=== PATIENT | female | born 1990 ===

== ENCOUNTER 2017-11-12 19:39 | Inpatient (IN) | payer MEDICAID ==
[2017-11-12 19:40] VITALS: BMI 29.2
[2017-11-12] MEDS ORDERED: Sodium Chloride 0.9% 1,000 ML IV STA (20:21)
--- NOTE | 2017-11-12 20:37 | ED PDOC ---
HPI: Abdomen Time Seen by Provider: 11/12/17 19:40 Chief Complaint (Nursing): Abdominal Pain Chief Complaint (Provider): Abdominal Pain History Per: EMS, Family History/Exam Limitations: clinical condition Onset/Duration Of Symptoms: Days (x3) Additional Complaint(s): Patient is a 27 y/o female with history of gastroporesis, chronic kidney disease, anemia, nephrotic syndrome and hypertension who was brought to the ED by EMS for evaluation of potential seizures. Per EMS patient's blood sugar at home was 64. Per mother patient gets seizures when her sugar is low but by seizures she means diaphoretic and shaky, not no LOC or eyes rolling back. she has history of negative neuro workup for seizures. per mother she has been vomiting for the past x4 days and has chronic gastroporesis. actually mom states this has been gng on for 5 yrs. She was recently admitted to this hospital and was discharged wit Zofran ODT. Patient follows with her car checker and her primary dr Dr. Lyles. According to her mother, current behavior is patient's baseline. She has had GI work ups and they have all been negative. Patient take Zofran daily but provides no relief. he is requesting pain medication and nausea medication. Upon provider evaluation patient's sugar was 88 after being given apple juice by mother. She denies any fever or diarrhea. PMD: Rafal Past Medical History Reviewed: Historical Data, Nursing Documentation, Vital Signs - Medical History PMH: Anemia, Diabetes (Type I), HTN, Chronic Kidney Disease Denies: HIV Other PMH: Gastroporesis, nephrotic syndrome - Surgical History Surgical History: No Surg Hx - Family History Family History: States: Unknown Family Hx - Social History Current smoker - smoking cessation education provided: No Alcohol: None Drugs: Denies - Home Medications Home Medications: Ambulatory Orders Medication Instructions Recorded Insulin Lispro [humALOG] 5 unit SC ACTID 11/04/17 Liraglutide [Victoza 2-Ángel] 0.6 mg SC DAILY 11/04/17 Metoclopramide [Reglan] 10 mg PO Q8 PRN 11/04/17 amLODIPine [Norvasc] 5 mg PO DAILY 11/04/17 Ondansetron ODT [Zofran ODT] 4 mg PO Q8H PRN #20 odt 11/09/17 Ergocalciferol (Vitamin D2) 50,000 unit PO QWK 11/13/17 [Vitamin D2] Ferrous Sulfate [Feosol] 325 mg PO BID 11/13/17 Folic Acid 1 mg PO DAILY 11/13/17 Insulin Glargine, Recombina 20 unit SC HS 11/13/17 [Lantus] - Allergies Allergies/Adverse Reactions: Allergies Allergy/AdvReac Type Severity Reaction Status Date / Time No Known Allergies Allergy Verified 11/04/17 10:12 Review of Systems ROS Statement: Except As Marked, All Systems Reviewed And Found Negative Constitutional: Negative for: Fever Gastrointestinal: Positive for: Vomiting, Abdominal Pain. Negative for: Diarrhea Neurological: Positive for: Seizures (possible) Physical Exam - Reviewed Nursing Documentation Reviewed: Yes Vital Signs Reviewed: Yes - Physical Exam Appears: Positive for: Well Head Exam: Positive for: ATRAUMATIC Skin: Positive for: Normal Color, Warm, Dry Eye Exam: Positive for: Normal appearance ENT: Positive for: Normal ENT Inspection Neck: Positive for: Normal Cardiovascular/Chest: Positive for: Regular Rate, Rhythm Respiratory: Positive for: Normal Breath Sounds Gastrointestinal/Abdominal: Positive for: Normal Exam Extremity: Positive for: Normal ROM Neurologic/Psych: Positive for: Alert, Oriented - Laboratory Results Result Diagrams: 11/12/17 20:55 11/12/17 20:55 Medical Decision Making Medical Decision Making: Time: 20:21 Impression: vomiting, rule out small bowel obstruction, electrolyate abnormality or other infections Initial Plan: Beta HCG CMP CBC w/ diff IV fluids 999 mls/hr Pepcid Zofran Urine C&S UA Time: 20:52 Patient gave verbal consent for R EJ for IV access (RNS unable to obtain) Time: 21:40 Patient's EJ fell out. She was vomiting and wretching causing it to fall out. Time: 22:02 Patient given Morphine as although pt appears comfortable and resting in bed, when i go in and see how she is she demands narcotis Time: 0138 CT Abd/Pelvis IMPRESSION: No CT evidence of acute pathology. Small sliding hiatal hernia. Complete resolution of previously noted pleural effusions. 0202 Patient has been sleeping and requesting pain medications now. refusing to give urine sample. 0224 Patient failed tolerating PO and vomited. Spoke to Dr. Santos, medical service, who agreed to patient admission. 0243 Patient is asking for medication and refused to give urine. 0355 Patient has elevated blood sugar, ordered insulin. lactat normal. nurses tried again to get iv access but no success. i myself tried multiple times. pt will need to get PICC line in AM. Scribe Attestation: Documented by Arian Babb, acting as a scribe for Courtney Stubbs MD Provider Scribe Attestation: All medical record entries made by the Scribe were at my direction and personally dictated by me. I have reviewed the chart and agree that the record accurately reflects my personal performance of the history, physical exam, medical decision making, and the department course for this patient. I have also personally directed, reviewed, and agree with the discharge instructions and disposition. Disposition - Clinical Impression Clinical Impression: CKD (chronic kidney disease), stage IV, Intractable vomiting, Gastroparesis - Patient ED Disposition Is Patient to be Admitted: Yes Discussed With : Enrique Sanots Counseled Patient/Family Regarding: Studies Performed, Diagnosis - Disposition Disposition Time: 02:24 Condition: STABLE
[2017-11-12 21:05] LABS: BASO # 0.1 K/uL (0.0-0.2); BASO % 0.7 % (0.0-2.0); EOS % 0.1 % (0.0-4.0); HEMOGLOBIN 11.3 g/dL (12.0-16.0); LYMPH % 6.1 % (20.0-40.0); MEAN CELL VOLUME 86.6 fl (81.0-99.0); MEAN CORPUSCULAR HEMOGLOBIN 28.4 pg (27.0-31.0); MEAN CORPUSCULAR HGB CONC 32.8 g/dL (33.0-37.0); MEAN PLATELET VOLUME 10.1 fl (7.2-11.7); MONO # 1.1 K/uL (0.0-0.8); MONO % 6.5 % (0.0-10.0); NEUT # 14.4 K/uL (1.8-7.0); NEUT % 86.6 % (50.0-75.0); PLATELET COUNT 438 K/uL (130-400); RBC 3.99 Mil/uL (3.80-5.20); RED CELL DISTRIBUTION WIDTH 13.2 % (11.5-14.5); WHITE BLOOD COUNT 16.6 K/uL (4.8-10.8)
[2017-11-12 21:19] LABS: ALB/GLOB RATIO 0.9 (1.0-2.1); ALBUMIN 3.4 g/dL (3.5-5.0); ALT/SGPT 20 U/L (9-52); AST/SGOT 26 U/L (14-36); BLOOD UREA NITROGEN 31 mg/dl (7-17); CALCIUM 9.1 mg/dL (8.4-10.2); GFR NON-AFRICAN AMERICAN 10
[2017-11-12] MEDS ORDERED: Morphine 4 MG/ML VIAL ONE (22:06)
[2017-11-12 22:50] LABS: ANISOCYTOSIS SLIGHT; BANDS 4 % (0-2); HYPOCHROMIC SLIGHT; LYMPHOCYTE 10 % (20-50); MONOCYTE 6 % (0-10); NEUTROPHIL 80 % (42-75); PLATELET ESTIMATE NORMAL (NORMAL); TOTAL CELLS COUNTED 100
[2017-11-13] MEDS ORDERED: Insulin Regular 100 units/ml SC STA (03:29)
[2017-11-13 03:51] LABS: ABG ALLEN TEST YES; ARTERIAL BLOOD GAS HCO3 23.3 mmol/L (21-28); ARTERIAL BLOOD GAS O2 SAT 96.4 % (95-98); ARTERIAL BLOOD GAS PCO2 31 mm/Hg (35-45); ARTERIAL BLOOD GAS PH 7.44 (7.35-7.45); ARTERIAL BLOOD GAS PO2 81 mm/Hg (80-100); ARTERIAL BLOOD GAS TCO2 22.1 mmol/L (22-28)
[2017-11-13] MEDS ORDERED: Insulin Regular 100 units/ml ONE (03:54)
[2017-11-13 05:56] LABS: SQUAMOUS EPITHIAL < 1 /hpf (0-5); URINE AMORPHOUS SEDIMENT OCC /ul (<OCC); URINE BACTERIA RARE (<OCC); URINE BILIRUBIN NEGATIVE (NEGATIVE); URINE BLOOD NEGATIVE (NEGATIVE); URINE CLARITY SLIGHTY-CLOUDY (Clear); URINE COLOR YELLOW (YELLOW); URINE GLUCOSE (UA) >=500 mg/dL (Normal); URINE HYALINE CAST 0-2 /hpf (0-2); URINE LEUKOCYTE ESTERASE NEG Leu/uL (Negative); URINE PROTEIN >=500 mg/dL (NEGATIVE); URINE UROBILINOGEN 0.2-1.0 mg/dL (0.2-1.0)
[2017-11-13] MEDS ORDERED: Influenza Vaccine 60 MCG/0.5 ML SYR (3 yr & up) IM ONE (10:00)
[2017-11-13] MEDS ORDERED: Pneumococcal 23-Valent Vaccine IM ONE (10:00)
--- NOTE | 2017-11-13 10:04 | CP.PCM.CON ---
<Nakul Sparks - Last Filed: 11/13/17 09:56> History of Present Illness - History of Present Illness History of Present Illness: PGY-4 GI Fellow Consult Note THE FOLLOWING INFORMATION OBTAINED FROM CHART REVIEW AND HOSPITAL STAFF PATIENT POSSIBLY POST-ICTAL DURING MY ENCOUNTER Pt is a 27 yo Hisp Female with DM1 c/b gastroparesis and CKD (on insulin pump with h/o fluctuating blood sugars, seizure disorder (due to hypoglycemia) and psuedoseziures presenting on 11/12 with nausea and vomiting and possible seizure disorder. Emesis consisted of brownish/yellow; no black or red emesis noted. Shortly prior to my arrival in the room, nursing states patient was conversing with staff but that there were issues with pain medication and patient became irritated with later seizure activity. Unable to obtain ROS due to clinical condition MHx: See above SurgHx: Insulin pump Meds: Reviewed in MAR FamHx: DM, HTN SocHx: Neg x 3 All: NKDA Past Patient History - Past Medical History & Family History Past Medical History?: Yes - Past Social History Alcohol: None Drugs: Denies - CARDIAC Hx Hypertension: Yes - PULMONARY Hx Respiratory Disorders: No - NEUROLOGICAL Hx Neurological Disorder: No - HEENT Hx HEENT Problems: No - RENAL Hx Chronic Kidney Disease: Yes - ENDOCRINE/METABOLIC Hx Endocrine Disorders: Yes - HEMATOLOGICAL/ONCOLOGICAL Hx Anemia: Yes Hx Human Immunodeficiency Virus (HIV): No - INTEGUMENTARY Hx Dermatological Problems: No - MUSCULOSKELETAL/RHEUMATOLOGICAL Hx Musculoskeletal Disorders: No Hx Falls: No - GASTROINTESTINAL Hx Gastrointestinal Disorders: Yes Other/Comment: Gastroparesis - GENITOURINARY/GYNECOLOGICAL Hx Genitourinary Disorders: No - PSYCHIATRIC Hx Psychophysiologic Disorder: No Hx Substance Use: No - SURGICAL HISTORY Hx Surgeries: No - ANESTHESIA Hx Anesthesia: No Hx Anesthesia Reactions: No Meds Allergies/Adverse Reactions: Allergies Allergy/AdvReac Type Severity Reaction Status Date / Time No Known Allergies Allergy Verified 11/04/17 10:12 - Medications Medications: Current Medications Ondansetron HCl (Zofran Odt) 4 mg PO Q8H PRN PRN Reason: Nausea/Vomiting Last Admin: 11/13/17 09:12 Dose: 4 mg Pneumococcal Polyvalent Vaccine (Pneumovax 23 Vaccine) 0.5 ml IM .ONCE ONE Stop: 11/13/17 10:01 Physical Exam - Constitutional Appears: Confused Additional comments: staring off - Head Exam Head Exam: ATRAUMATIC, NORMAL INSPECTION - Eye Exam Eye Exam: Normal appearance. absent: Conjunctival injection, Scleral icterus - ENT Exam ENT Exam: Mucous Membranes Moist. absent: Mucous Membranes Dry, Normal External Ear Exam - Respiratory Exam Respiratory Exam: Clear to Auscultation Bilateral, NORMAL BREATHING PATTERN. absent: Accessory Muscle Use - Cardiovascular Exam Cardiovascular Exam: Tachycardia. absent: REGULAR RHYTHM, RRR - GI/Abdominal Exam GI & Abdominal Exam: Normal Bowel Sounds, Soft. absent: Bruit, Diminished Bowel Sounds, Distended, Firm, Guarding, Tenderness - Rectal Exam Rectal Exam: Deferred - Neurological Exam Additional comments: eyes open, not tracking, not talking, some movement/withdrawal with painful stimuliiiii - Psychiatric Exam Psychiatric exam: Flat Affect - Skin Skin Exam: Diaphoretic, Normal Color, Warm Results - Vital Signs Recent Vital Signs: Last Vital Signs Temp 100.9 F H 11/13/17 08:59 Pulse 123 H 11/13/17 08:59 Resp 20 11/13/17 08:59 BP 179/99 H 11/13/17 08:59 Pulse Ox 100 11/13/17 08:59 - Labs Result Diagrams: 11/12/17 20:55 11/12/17 20:55 Labs: Laboratory Results - last 24 hr 11/12/17 11/12/17 11/13/17 20:55 20:55 02:36 WBC 16.6 H D RBC 3.99 Hgb 11.3 L Hct 34.5 MCV 86.6 MCH 28.4 MCHC 32.8 L RDW 13.2 Plt Count 438 H D MPV 10.1 Neut % (Auto) 86.6 H Lymph % (Auto) 6.1 L Hale % (Auto) 6.5 Eos % (Auto) 0.1 Baso % (Auto) 0.7 Neut # (Auto) 14.4 H Lymph # (Auto) 1.0 Hale # (Auto) 1.1 H Eos # (Auto) 0.0 Baso # (Auto) 0.1 Neutrophils % (Manual) 80 H Band Neutrophils % 4 H Lymphocytes % (Manual) 10 L Monocytes % (Manual) 6 Platelet Estimate Normal Hypochromasia (manual) Slight Anisocytosis (manual) Slight pCO2 pO2 HCO3 ABG pH ABG Total CO2 ABG O2 Saturation ABG Base Excess José Miguel Test ABG Potassium A-a O2 Difference Glucose Lactate FiO2 Crit Value Called To Crit Value Called By Crit Value Read Back Blood Gas Notified Time Sodium 138 Potassium 3.8 Chloride 105 Carbon Dioxide 22 Anion Gap 15 BUN 31 H Creatinine 5.3 H Est GFR ( Amer) 12 Est GFR (Non-Af Amer) 10 POC Glucose (mg/dL) 401 H* Random Glucose 151 H Calcium 9.1 Total Bilirubin 0.4 AST 26 ALT 20 Alkaline Phosphatase 168 H D Total Protein 7.1 Albumin 3.4 L Globulin 3.7 Albumin/Globulin Ratio 0.9 L Beta HCG, Quant < 2.39 Arterial Blood Potassium Urine Color Urine Clarity Urine pH Ur Specific [place] Urine Protein Urine Glucose (UA) Urine Ketones Urine Blood Urine Nitrate Urine Bilirubin Urine Urobilinogen Ur Leukocyte Esterase Urine RBC (Auto) Urine Microscopic WBC Ur Squamous Epith Cells Amorphous Sediment Urine Bacteria Hyaline Casts 11/13/17 11/13/17 11/13/17 02:44 03:45 05:20 WBC RBC Hgb Hct MCV MCH MCHC RDW Plt Count MPV Neut % (Auto) Lymph % (Auto) Hale % (Auto) Eos % (Auto) Baso % (Auto) Neut # (Auto) Lymph # (Auto) Hale # (Auto) Eos # (Auto) Baso # (Auto) Neutrophils % (Manual) Band Neutrophils % Lymphocytes % (Manual) Monocytes % (Manual) Platelet Estimate Hypochromasia (manual) Anisocytosis (manual) pCO2 31 L pO2 81 HCO3 23.3 ABG pH 7.44 ABG Total CO2 22.1 ABG O2 Saturation 96.4 ABG Base Excess -2.1 L José Miguel Test Yes ABG Potassium 4.7 A-a O2 Difference 30.0 Glucose 522 H* D Lactate 0.9 FiO2 21.0 Crit Value Called To Evelyne zepeda md Crit Value Called By 302 Crit Value Read Back Y Blood Gas Notified Time 353 Sodium 134.0 Potassium Chloride 100.0 Carbon Dioxide Anion Gap BUN Creatinine Est GFR ( Amer) Est GFR (Non-Af Amer) POC Glucose (mg/dL) 456 H* Random Glucose Calcium Total Bilirubin AST ALT Alkaline Phosphatase Total Protein Albumin Globulin Albumin/Globulin Ratio Beta HCG, Quant Arterial Blood Potassium 4.7 Urine Color Yellow Urine Clarity Slighty-cloudy Urine pH 6.0 Ur Specific [place] 1.023 Urine Protein >=500 Urine Glucose (UA) >=500 Urine Ketones Trace Urine Blood Negative Urine Nitrate Negative Urine Bilirubin Negative Urine Urobilinogen 0.2-1.0 Ur Leukocyte Esterase Neg Urine RBC (Auto) 6 H Urine Microscopic WBC 3 Ur Squamous Epith Cells < 1 Amorphous Sediment Occ H Urine Bacteria Rare Hyaline Casts 0-2 11/13/17 05:30 WBC RBC Hgb Hct MCV MCH MCHC RDW Plt Count MPV Neut % (Auto) Lymph % (Auto) Hale % (Auto) Eos % (Auto) Baso % (Auto) Neut # (Auto) Lymph # (Auto) Hale # (Auto) Eos # (Auto) Baso # (Auto) Neutrophils % (Manual) Band Neutrophils % Lymphocytes % (Manual) Monocytes % (Manual) Platelet Estimate Hypochromasia (manual) Anisocytosis (manual) pCO2 pO2 HCO3 ABG pH ABG Total CO2 ABG O2 Saturation ABG Base Excess José Miguel Test ABG Potassium A-a O2 Difference Glucose Lactate FiO2 Crit Value Called To Crit Value Called By Crit Value Read Back Blood Gas Notified Time Sodium Potassium Chloride Carbon Dioxide Anion Gap BUN Creatinine Est GFR ( Amer) Est GFR (Non-Af Amer) POC Glucose (mg/dL) 428 H* Random Glucose Calcium Total Bilirubin AST ALT Alkaline Phosphatase Total Protein Albumin Globulin Albumin/Globulin Ratio Beta HCG, Quant Arterial Blood Potassium Urine Color Urine Clarity Urine pH Ur Specific [place] Urine Protein Urine Glucose (UA) Urine Ketones Urine Blood Urine Nitrate Urine Bilirubin Urine Urobilinogen Ur Leukocyte Esterase Urine RBC (Auto) Urine Microscopic WBC Ur Squamous Epith Cells Amorphous Sediment Urine Bacteria Hyaline Casts Assessment & Plan - Assessment and Plan (Free Text) Assessment: 27 yo Hisp Female with DM1 c/b gastroparesis and CKD presenting with N/V and possible seizure. # Nausea and Vomiting: Due to gastroparesis flare. Non-bloody, non-bilious emesis. BS up to 456 but also with fluctuating values with reported lows and possible seizure activity. Needs good blood sugar control and supportive care. Plan: - Strict glycemic control per primary/Endo - Supportive care with ondansetron - Can trial metoclopramide, but caution if seizures - Monitor labs Thank you for the consult. Please page if questions. Pt discussed with Dr. Rodriguez. Please see attestion for further recs/changes. <Kit Rodriguez Last Filed: 11/18/17 13:43> Meds - Medications Medications: Current Medications Acetaminophen (Tylenol 325mg Tab) 650 mg PO Q4 PRN PRN Reason: Fever >100.4 F Last Admin: 11/13/17 13:50 Dose: 650 mg Acetaminophen (Tylenol 325mg Tab) 650 mg PO Q4 PRN PRN Reason: Pain, Mild (1-3) Last Admin: 11/17/17 11:04 Dose: 650 mg Amlodipine Besylate (Norvasc) 10 mg PO DAILY [facility] Last Admin: 11/18/17 11:50 Dose: Not Given Clonidine HCl (Catapres Tts1 0.1 Mg/24 Hr) 1 patch TD Q7D [facility] Last Admin: 11/14/17 18:42 Dose: 1 patch Diphenhydramine HCl (Benadryl) 50 mg IVP Q6 PRN PRN Reason: itching Last Admin: 11/18/17 08:16 Dose: 50 mg Ergocalciferol (Drisdol 50,000 Intl Units Cap) 1 cap PO QWK [facility] Ferrous Sulfate (Feosol) 325 mg PO BID [facility] Last Admin: 11/14/17 09:56 Dose: Not Given Folic Acid (Folic Acid) 1 mg PO DAILY [facility] Last Admin: 11/14/17 09:57 Dose: Not Given Hydralazine HCl (Apresoline) 10 mg IV Q6 PRN PRN Reason: SBP>180 or DBP>110 Last Admin: 11/17/17 04:40 Dose: 10 mg Piperacillin Sod/Tazobactam (Sod 2.25 gm/ Sodium Chloride) 100 mls @ 100 mls/hr IVPB Q8 [facility]; Protocol Last Admin: 11/18/17 09:51 Dose: 100 mls/hr Iron Sucrose 100 mg/ Sodium (Chloride) 105 mls @ 105 mls/hr IVPB DAILY [facility] Last Admin: 11/17/17 10:05 Dose: 105 mls/hr Daptomycin 410 mg/ Sodium (Chloride) 100 mls @ 100 mls/hr IV DAILY [facility] Stop: 11/23/17 09:01 Last Admin: 11/18/17 08:31 Dose: 100 mls/hr Potassium Chloride 40 meq/ (Sodium Chloride) 1,020 mls @ 100 mls/hr IV .[id number] [facility] Stop: 11/18/17 18:45 Last Admin: 11/18/17 04:58 Dose: Not Given Insulin Detemir (Levemir) 16 units SC HS [facility] Last Admin: 11/17/17 21:41 Dose: 16 units Insulin Detemir (Levemir) 5 units SC DAILY [facility] Insulin Human Lispro (Humalog) 0 units SC ACHS [facility] Last Admin: 11/18/17 12:30 Dose: Not Given Labetalol HCl (Trandate) 20 mg IVP Q4H PRN PRN Reason: Systolic Blood Pressure Last Admin: 11/17/17 17:05 Dose: 20 mg Metoclopramide HCl (Reglan) 5 mg IVP Q6H [facility] Last Admin: 11/18/17 09:52 Dose: 5 mg Ondansetron HCl (Zofran Odt) 4 mg PO Q8H PRN PRN Reason: Nausea/Vomiting Last Admin: 11/14/17 04:29 Dose: 4 mg Ondansetron HCl (Zofran Inj) 4 mg IVP Q6 PRN PRN Reason: Nausea/Vomiting Last Admin: 11/18/17 01:21 Dose: 4 mg Pantoprazole Sodium (Protonix Inj) 40 mg IVP DAILY [facility] Last Admin: 11/18/17 08:30 Dose: 40 mg Sertraline HCl (Zoloft) 25 mg PO DAILY@2200 [facility] Results - Vital Signs Recent Vital Signs: Last Vital Signs Temp 98.5 F 11/18/17 11:58 Pulse 100 H 11/18/17 11:58 Resp 18 11/18/17 11:58 BP 177/106 H 11/18/17 11:58 Pulse Ox 100 11/18/17 11:58 - Labs Result Diagrams: 11/18/17 10:47 11/18/17 10:47 Labs: Laboratory Results - last 24 hr 11/17/17 11/17/17 11/17/17 12:00 17:05 21:38 WBC RBC Hgb Hct MCV MCH MCHC RDW Plt Count MPV Neut % (Auto) Lymph % (Auto) Hale % (Auto) Eos % (Auto) Baso % (Auto) Neut # (Auto) Lymph # (Auto) Hale # (Auto) Eos # (Auto) Baso # (Auto) Sodium Potassium Chloride Carbon Dioxide Anion Gap BUN Creatinine Est GFR ( Amer) Est GFR (Non-Af Amer) POC Glucose (mg/dL) 145 H 390 H Random Glucose Calcium Phosphorus Magnesium Total Bilirubin AST ALT Alkaline Phosphatase Total Protein Albumin Globulin Albumin/Globulin Ratio 25-OH Vitamin D Total < 12.8 L 11/18/17 11/18/17 11/18/17 05:41 10:47 10:47 WBC 8.1 RBC 3.21 L Hgb 9.5 L Hct 27.6 L MCV 86.0 MCH 29.5 MCHC 34.3 RDW 13.4 Plt Count 332 MPV 9.4 Neut % (Auto) 68.4 Lymph % (Auto) 22.0 Hale % (Auto) 7.5 Eos % (Auto) 1.3 Baso % (Auto) 0.8 Neut # (Auto) 5.5 Lymph # (Auto) 1.8 Hale # (Auto) 0.6 Eos # (Auto) 0.1 Baso # (Auto) 0.1 Sodium 136 Potassium 3.2 L Chloride 110 H Carbon Dioxide 23 Anion Gap 6 L BUN 15 Creatinine 3.4 H Est GFR ( Amer) 19 Est GFR (Non-Af Amer) 16 POC Glucose (mg/dL) 132 H Random Glucose 48 L Calcium 8.0 L Phosphorus 2.6 Magnesium 1.8 Total Bilirubin 0.1 L AST 18 ALT 22 Alkaline Phosphatase 88 Total Protein 5.0 L Albumin 2.2 L Globulin 2.8 Albumin/Globulin Ratio 0.8 L 25-OH Vitamin D Total 11/18/17 11/18/17 11/18/17 11:13 11:15 12:08 WBC RBC Hgb Hct MCV MCH MCHC RDW Plt Count MPV Neut % (Auto) Lymph % (Auto) Hale % (Auto) Eos % (Auto) Baso % (Auto) Neut # (Auto) Lymph # (Auto) Hale # (Auto) Eos # (Auto) Baso # (Auto) Sodium Potassium Chloride Carbon Dioxide Anion Gap BUN Creatinine Est GFR ( Amer) Est GFR (Non-Af Amer) POC Glucose (mg/dL) 33 L* 34 L* 96 Random Glucose Calcium Phosphorus Magnesium Total Bilirubin AST ALT Alkaline Phosphatase Total Protein Albumin Globulin Albumin/Globulin Ratio 25-OH Vitamin D Total Assessment & Plan - Assessment and Plan (Free Text) Plan: Patient seen and examined Agree with above Kit Rodriguez MD, PhD
[2017-11-13] MEDS: Insulin Lispro (humaLOG) 100 Units/ml Inj SC SCH ×5 (10:43→21:15)
[2017-11-13] MEDS ORDERED: Ergocalciferol 50,000 Intl Units Cap PO SCH (10:45)
--- NOTE | 2017-11-13 10:48 | CT ---
Date of service: 11/13/2017 PROCEDURE: CT Abdomen and Pelvis without intravenous contrast HISTORY: vomiting COMPARISON: CT scan of the abdomen and pelvis dated 11/04/2017 TECHNIQUE: Contiguous images were obtained from the domes of the diaphragms to the upper thighs without the administration of intravenous contrast. Oral contrast was not administered. Radiation dose: Total exam DLP = 293.2 mGy-cm. This CT exam was performed using one or more of the following dose reduction techniques: Automated exposure control, adjustment of the mA and/or kV according to patient size, and/or use of iterative reconstruction technique. FINDINGS: LOWER THORAX: Unremarkable. LIVER: Unremarkable. No gross lesion or ductal dilatation. GALLBLADDER AND BILE DUCTS: Unremarkable. PANCREAS: Unremarkable. No gross lesion or ductal dilatation. SPLEEN: Unremarkable. ADRENALS: Unremarkable. No mass. KIDNEYS AND URETERS: Unremarkable. No hydronephrosis. No solid mass. VASCULATURE: Unremarkable. No aortic aneurysm. BOWEL: Small to moderate hiatal hernia. Mild rectosigmoid wall thickening. No obstruction. No gross mural thickening. APPENDIX: Unremarkable. Normal appendix. PERITONEUM: Unremarkable. No free fluid. No free air. LYMPH NODES: Unremarkable. No enlarged lymph nodes. BLADDER: Unremarkable. REPRODUCTIVE: Unremarkable. BONES: No acute fracture. OTHER FINDINGS: None. IMPRESSION: Mild rectosigmoid wall thickening may be related to underdistention versus infectious/inflammatory colitis. Clinical correlation is recommended. Additional findings as above.
[2017-11-13] MEDS ORDERED: Lidocaine 1% 5ml Abboject ONE (12:16)
--- NOTE | 2017-11-13 12:55 | PCM.SURG1 ---
Surgeon's Initial Post Op Note - Surgeon's Notes Surgeon: Dilan Colbert MD Statement Clerks Supervisor: NONE Type of Anesthesia: Local Pre-Operative Diagnosis: Poor venous access Operative Findings: Patent right basilic vein Post-Operative Diagnosis: Poor venous access Operation Performed: Midline single lumen picc placement, 23 cm. Tip in subclavian vein. Specimen/Specimens Removed: NONE Estimated Blood Loss: EBL {In ML}: 2 Blood Products Given: N/A Drains Used: No Drains Post-Op Condition: Fair Date of Surgery/Procedure: 11/13/17 Time of Surgery/Procedure: 12:50
--- NOTE | 2017-11-13 13:04 | VASCULAR ---
PROCEDURE: Date of procedure: 11/13/2017 Procedure: 1. Placement of a right arm midline PICC with ultrasound and fluoroscopic guidance, CPT 73358 2. PICC tip confirmation with spot radiograph and is in the superior vena cava Medications: 2cc 1 percent lidocaine Total Fluoro time: 1.5 Seconds Radiation:0.12 MGy EBL: 2 cc HISTORY: Gastroparesis, emesis, poor venous access. TECHNIQUE: Following informed consent and procedure time-out, the patient was placed supine on the interventional table and the right arm prepped and draped in the usual sterile fashion. Ultrasound showed a patent and compressible right basilic vein. After the skin was anesthetized with lidocaine, the basilic vein was accessed with micro micropuncture technique using ultrasound guidance. A guidewire was then advanced under fluoroscopic guidance into the subclavian vein. An image documenting ultrasound guidance for vascular access was permanently saved. The length of the single-lumen 4 [place]ic PICC was trimmed to 23 centimeters and advanced through a peel-away sheath. The PICC was position with tip of PICC confirm a spot radiograph the subclavian vein. The PICC was secured to the patient's skin. The PICC was flushed. A biopatch and sterile dressing was applied. IMPRESSION: Placement of a midline single-lumen 4 Green[place]ic PICC trimmed to 23 centimeters via right basilic vein. The tip of the PICC is confirmed with spot radiograph and is in the subclavian vein.
[2017-11-13] MEDS: Sodium Chloride 0.9% 1,000 ML IV SCH (15:41)
--- NOTE | 2017-11-13 23:17 | CP.PCM.HP ---
History of Present Illness - History of Present Illness History of Present Illness: CC: Vomiting and Shakiness History of Present Illness: A 27 y/o Female with history of Long Standing IDDM (since the age of 9years), G astroparesis, chronic kidney disease III (Baseline Creat 2-3) , Anemia, Nephrotic syndrome due to Diabetic Nephropathy, and Hypertension who was brought to the ED by EMS for evaluation of potential seizures. Per EMS patient's blood sugar at home was 64. Per mother patient gets seizures when her sugar is low but by seizures she means diaphoretic and shaky, not no LOC or eyes rolling back. she has history of negative neurology workup for seizures. Denies tongue bite or Incontinence. As per mother she also has been vomiting for the past x4 days and has Chronic Gastroparesis. actually mom states this has been going on for 5 yrs. She was recently admitted to this hospital and was discharged wit Zofran ODT. Patient follows with her Title Curative Specialist and her PCP Dr. Lyles. She has had GI work ups and they have all been negative. Patient take Zofran daily but provides no relief. She is requesting pain medication and nausea medication. Upon provider evaluation patient's sugar was 88 after being given apple juice by mother. She denies any fever or diarrhea. Multiple Hospitalization at [facility] similar Complaints. Present on Admission - Present on Admission Any Indicators Present on Admission: Yes History of Uncontrolled Diabetes: Yes Urinary Catheter: Yes (Patient asked for stating shecannot Void) Decubitus Ulcer Present: No Review of Systems - Review of Systems All systems: reviewed and no additional remarkable complaints except Review of Systems: as per HPI Past Patient History - Infectious Disease Hx of Infectious Diseases: None - Past Medical History & Family History Past Medical History?: Yes Past Family History: Reviewed and not pertinent - Past Social History Smoking Status: Smoker Currrent Status Unknown Alcohol: None Drugs: Denies - CARDIAC Hx Hypertension: Yes - PULMONARY Hx Respiratory Disorders: No - NEUROLOGICAL Hx Neurological Disorder: No - HEENT Hx HEENT Problems: No - RENAL Hx Chronic Kidney Disease: Yes - ENDOCRINE/METABOLIC Hx Endocrine Disorders: Yes - HEMATOLOGICAL/ONCOLOGICAL Hx Anemia: Yes Hx Human Immunodeficiency Virus (HIV): No - INTEGUMENTARY Hx Dermatological Problems: No - MUSCULOSKELETAL/RHEUMATOLOGICAL Hx Musculoskeletal Disorders: No Hx Falls: No - GASTROINTESTINAL Hx Gastrointestinal Disorders: Yes Other/Comment: Gastroparesis - GENITOURINARY/GYNECOLOGICAL Hx Genitourinary Disorders: No - PSYCHIATRIC Hx Psychophysiologic Disorder: No Hx Substance Use: No - SURGICAL HISTORY Hx Surgeries: No - ANESTHESIA Hx Anesthesia: No Hx Anesthesia Reactions: No Meds Allergies/Adverse Reactions: Allergies Allergy/AdvReac Type Severity Reaction Status Date / Time No Known Allergies Allergy Verified 11/04/17 10:12 Physical Exam - Constitutional Appears: Well, In Acute Distress - Head Exam Head Exam: ATRAUMATIC, NORMAL INSPECTION, NORMOCEPHALIC - Eye Exam Eye Exam: EOMI, Normal appearance, PERRL Pupil Exam: NORMAL ACCOMODATION, PERRL - ENT Exam ENT Exam: Mucous Membranes Dry, Normal Exam - Cardiovascular Exam Cardiovascular Exam: REGULAR RHYTHM, +S1, +S2 - GI/Abdominal Exam GI & Abdominal Exam: Normal Bowel Sounds, Soft. absent: Tenderness - Rectal Exam Rectal Exam: NORMAL INSPECTION - Exam Exam: Circumcision, NORMAL INSPECTION External exam: NORMAL EXTERNAL EXAM Speculum exam: NORMAL SPECULUM EXAM Bimanual exam: NORMAL BIMANUAL EXAM - Extremities Exam Extremities exam: Positive for: normal inspection - Back Exam Back exam: NORMAL INSPECTION - Neurological Exam Neurological exam: Alert, CN II-XII Intact, Normal Gait, Oriented x3, Reflexes Normal - Psychiatric Exam Psychiatric exam: Normal Affect, Normal Mood - Skin Skin Exam: Dry, Intact, Normal Color, Warm Results - Vital Signs Recent Vital Signs: Last Vital Signs Temp 99.0 F 11/13/17 19:19 Pulse 111 H 11/13/17 19:19 Resp 20 11/13/17 19:19 BP 119/73 11/13/17 19:19 Pulse Ox 99 11/13/17 19:19 - Labs Result Diagrams: 11/18/17 10:47 11/19/17 09:23 Labs: Laboratory Results - last 24 hr 11/13/17 11/13/17 11/13/17 02:36 02:44 03:45 pCO2 31 L pO2 81 HCO3 23.3 ABG pH 7.44 ABG Total CO2 22.1 ABG O2 Saturation 96.4 ABG Base Excess -2.1 L José Miguel Test Yes ABG Potassium 4.7 A-a O2 Difference 30.0 Sodium 134.0 Chloride 100.0 Glucose 522 H* D Lactate 0.9 FiO2 21.0 Crit Value Called To Evelyne zepeda md Crit Value Called By 302 Crit Value Read Back Y Blood Gas Notified Time 353 POC Glucose (mg/dL) 401 H* 456 H* Arterial Blood Potassium 4.7 Urine Color Urine Clarity Urine pH Ur Specific [place] Urine Protein Urine Glucose (UA) Urine Ketones Urine Blood Urine Nitrate Urine Bilirubin Urine Urobilinogen Ur Leukocyte Esterase Urine RBC (Auto) Urine Microscopic WBC Ur Squamous Epith Cells Amorphous Sediment Urine Bacteria Hyaline Casts 11/13/17 11/13/17 11/13/17 05:20 05:30 10:41 pCO2 pO2 HCO3 ABG pH ABG Total CO2 ABG O2 Saturation ABG Base Excess José Miguel Test ABG Potassium A-a O2 Difference Sodium Chloride Glucose Lactate FiO2 Crit Value Called To Crit Value Called By Crit Value Read Back Blood Gas Notified Time POC Glucose (mg/dL) 428 H* 495 H* Arterial Blood Potassium Urine Color Yellow Urine Clarity Slighty-cloudy Urine pH 6.0 Ur Specific [place] 1.023 Urine Protein >=500 Urine Glucose (UA) >=500 Urine Ketones Trace Urine Blood Negative Urine Nitrate Negative Urine Bilirubin Negative Urine Urobilinogen 0.2-1.0 Ur Leukocyte Esterase Neg Urine RBC (Auto) 6 H Urine Microscopic WBC 3 Ur Squamous Epith Cells < 1 Amorphous Sediment Occ H Urine Bacteria Rare Hyaline Casts 0-2 11/13/17 15:48 pCO2 pO2 HCO3 ABG pH ABG Total CO2 ABG O2 Saturation ABG Base Excess José Miguel Test ABG Potassium A-a O2 Difference Sodium Chloride Glucose Lactate FiO2 Crit Value Called To Crit Value Called By Crit Value Read Back Blood Gas Notified Time POC Glucose (mg/dL) 244 H Arterial Blood Potassium Urine Color Urine Clarity Urine pH Ur Specific [place] Urine Protein Urine Glucose (UA) Urine Ketones Urine Blood Urine Nitrate Urine Bilirubin Urine Urobilinogen Ur Leukocyte Esterase Urine RBC (Auto) Urine Microscopic WBC Ur Squamous Epith Cells Amorphous Sediment Urine Bacteria Hyaline Casts - Imaging and Cardiology CT scan - abdomen Additional comment: Pelvis: Date of service: 11/13/2017 PROCEDURE: CT Abdomen and Pelvis without intravenous contrast HISTORY: vomiting COMPARISON: CT scan of the abdomen and pelvis dated 11/04/2017 TECHNIQUE: Contiguous images were obtained from the domes of the diaphragms to the upper thighs without the administration of intravenous contrast. Oral contrast was not administered. Radiation dose: Total exam DLP = 293.2 mGy-cm. This CT exam was performed using one or more of the following dose reduction techniques: Automated exposure control, adjustment of the mA and/or kV according to patient size, and/or use of iterative reconstruction technique. FINDINGS: LOWER THORAX: Unremarkable. LIVER: Unremarkable. No gross lesion or ductal dilatation. GALLBLADDER AND BILE DUCTS: Unremarkable. PANCREAS: Unremarkable. No gross lesion or ductal dilatation. SPLEEN: Unremarkable. ADRENALS: Unremarkable. No mass. KIDNEYS AND URETERS: Unremarkable. No hydronephrosis. No solid mass. VASCULATURE: Unremarkable. No aortic aneurysm. BOWEL: Small to moderate hiatal hernia. Mild rectosigmoid wall thickening. No obstruction. No gross mural thickening. APPENDIX: Unremarkable. Normal appendix. PERITONEUM: Unremarkable. No free fluid. No free air. LYMPH NODES: Unremarkable. No enlarged lymph nodes. BLADDER: Unremarkable. REPRODUCTIVE: Unremarkable. BONES: No acute fracture. OTHER FINDINGS: None. IMPRESSION: Mild rectosigmoid wall thickening may be related to underdistention versus infectious/inflammatory colitis. Clinical correlation is recommended. Additional findings as above. Assessment & Plan (1) Acute on chronic renal failure Assessment and Plan: Nausea and Vomitin Abdominal Pain Johnson Catheter in place Monitor I/O Title Curative Specialist Consult Renal U/S Status: Acute Priority: High (2) Diabetes mellitus with hyperglycemia, with long-term current use of insulin Assessment and Plan: Continue Levamir Accu-check with SS coverage HgA1C Endocrinology Consult Status: Acute Priority: High (3) Seizure Assessment and Plan: Vs Hypoglycemai Induced Sympathetic Response Vs Psudoseizure Head W/O Contrast: Negative? Ativan PRN Neurology Consulted Status: Acute Priority: High (4) Colitis Assessment and Plan: Leukocytosis, Intractable Abdominal Pain, Nausea and Vomiting, Gastroparesis IVF IV Cipro and Flagyl Pain Control PRN Reglan RTC Zofran PRN ID & GI Consult Status: Acute Priority: High
--- NOTE | 2017-11-14 03:52 | CON ---
DATE: 11/13/2017 HISTORY OF PRESENT ILLNESS: A 27-year-old female with past medical history of hypertension, diabetes with diabetic nephropathy and nephrotic syndrome, gastroparesis, history of seizure/pseudoseizures, admitted after possible seizure episode. Nephrology being consulted for acute kidney injury. The patient was recently admitted to [facility] less than two weeks ago for acute flare of diabetic gastroparesis with intractable vomiting; at that time, the patient was reportedly self inducing her vomiting per hospital staff and would be seen secretly drinking juices even when kept n.p.o; had also been complaining of severe abdominal pain and was asking for pain meds despite being seemingly comfortable lying in bed; primary team at [facility] therefore resist to give her pain meds and the patient hence signed out AMA. However within the few days, the patient presented to [facility] with intractable vomiting and was admitted for several days, was given IV fluids and antiemetic therapy as well as pain medication and was discharged just a few days ago. The patient reports that after being discharged from [facility], by the next day, she was already having extremely high sugars despite being on insulin pump and using her long acting Lantus. She reports vomiting started day after discharge and has been continuing ever since; bilious vomitus, denies any blackish or coffee ground color; the patient otherwise reports some dizziness. Reports having had low blood sugar readings three times while at home. The patient otherwise also reporting abdominal pain, epigastric/lower chest soreness and back pain; denies any dysuria; reports decreased urination since being admitted. PAST MEDICAL HISTORY: As above. SOCIAL HISTORY: Nonsmoker. FAMILY HISTORY: . REVIEW OF SYSTEMS: CONSTITUTIONAL: Having some fevers today. HEENT: Denies any dysphagia or difficulty swallowing. RESPIRATORY: Reports some dyspnea. CARDIOVASCULAR: Denies any palpitations. GI: As per HPI. : As per HPI. MUSCULOSKELETAL: As per HPI. EXTREMITIES: No edema. PSYCHIATRIC: History of pseudoseizures. NEUROLOGIC: Reporting some headaches. PHYSICAL EXAMINATION: GENERAL: In no distress, conversing coherently in full sentences. Slightly lethargic. VITAL SIGNS: This morning, blood pressure 177/86, heart rate 106, respirations 18, temperature 99.3, O2 sat 100% on 2 liters via nasal cannula. HEENT: Moist mucous membranes. Nonicteric. No cervical lymphadenopathy. Has some facial swelling. RESPIRATORY: Lungs clear to auscultation bilaterally. No rales. No rhonchi. No wheezes. CARDIOVASCULAR: Heart sounds S1, S2 normal. No murmurs. No gallops. No rubs. GI: Abdomen. Soft, nondistended. Has moderate tenderness. : Johnson in place. EXTREMITIES: No lower leg edema. SKIN: Warm. No cyanosis. PSYCHIATRIC: Normal affect. Not agitated. NEUROLOGIC: No resting tremors. LABORATORY DATA: From last night CBC, WBC 16.6, hemoglobin 11.3, hematocrit 34.5, platelets 438. Chemistry panel: Sodium 138, potassium 3.8, chloride 105, bicarb 22, BUN 31, creatinine 5.3, glucose 151, calcium 9.1, AST 26, ALT 20, albumin 3.4. Abdominal pelvis CT, no hydronephrosis. ASSESSMENT AND PLAN: 1. Acute kidney injury, on chronic kidney injury, stage 4/5. The patient well known to our service, being followed as outpatient; has recurrent flares of gastroparesis induced recurrent vomiting although did go several months recently without having any flares; current acute kidney injury likely prerenal in the setting of gastrointestinal loses as has been the case multiple times; baseline serum creatinine is in the low 3s, corresponding to estimated glomerular filtration rate of approximately 15 mL per minute; the patient also with labs that are consistent with hemoconcentration with serum albumin of 3.4 being higher than her recent baseline. Goals of care at this point are to give intravenous fluids and avoid nephrotoxic agents; avoid any nonsteroidal anti-inflammatory drugs as they can shift down residual renal function. 2. Chronic kidney disease, stage 4/5 secondary to diabetic nephropathy with nephrotic syndrome. We have discussed impending estimated glomerular filtration rate status previously, and the patient is recently referred for kidney transplantation; in the near future, need to plan for initiation of dialysis as well. 3. Gastroparesis. The patient with another flare with intractable vomiting although has been able to hold down the p.o. intake today. The patient is without any intravenous access; recommend to avoid peripherally inserted central catheter line as the patient needs to have her veins preserved; however, temporarily midline can be placed but it should be removed as soon as possible. 4. Hypertension, chronic kidney disease. Blood pressures tend to become severely elevated during episodes of vomiting; continue amlodipine 10 mg daily. No role for angiotensin-converting enzyme inhibitor at this mid stage of chronic kidney disease. 5. Anemia. The patient actually likely hemoconcentrated at this point. We will monitor and give Epogen as needed. Thank you for this referral. We will be following up closely. Musa Martines MD
[2017-11-14] MEDS: Sodium Chloride 0.9% 1,000 ML IV SCH (04:32)
[2017-11-14 06:33] LABS: MEAN CELL VOLUME 86.9 fl (81.0-99.0); MEAN CORPUSCULAR HEMOGLOBIN 28.5 pg (27.0-31.0); MEAN CORPUSCULAR HGB CONC 32.8 g/dL (33.0-37.0); PLATELET COUNT 408 K/uL (130-400); RED CELL DISTRIBUTION WIDTH 13.5 % (11.5-14.5); WHITE BLOOD COUNT 19.4 K/uL (4.8-10.8)
[2017-11-14 06:53] LABS: CALCIUM 8.3 mg/dL (8.4-10.2)
[2017-11-14] MEDS: Insulin Lispro (humaLOG) 100 Units/ml Inj SC SCH ×7 (06:57→22:59)
[2017-11-14] MEDS ORDERED: Dextrose 50% SYRINGE Inj (50 ml) ONE (09:35)
--- NOTE | 2017-11-14 10:29 | PCM.RRT ---
Addendum entered and electronically signed by Gauri Diallo MD 11/14/17 18:01: SCREEN PRINT OPERATOR called by staff for change in mental status after an episode of what it looked like seizure activity with tonic clonic movement of extremities .She is a 27 y/o female with PMH DM type I and CKD stage V Upon arrival patient was not responsive to verbal command , no bladder incontinence no tongue bite noticed Vital Blood Pressure 154/99 Pulse Rate 114 Respiratory Rate 17 Oxygen Saturation 100 All chart and clinical data reviewed Noticed patient to have CKD stage V with Cr 6.1 BUN 36 WBC 19 K Patient became responsive withing 5 minutes , asking for pain medication and ativan She started having episodes of non bilious , non bloody vomitus Vitals remained stable Accu 312 Will keep patient in telemetry for monitoring Keep NPO Give Protonix and carafate IV Will order MRI . Follow upw ith EEG report and neuro Continue care as per primary team Original Note: SCREEN PRINT OPERATOR Nurse Assessment - Situation Location: [address] [place] [address] Room Number: [id number] SCREEN PRINT OPERATOR Reason for Call: Change in Mental Status SCREEN PRINT OPERATOR Called By: RN - IV IV Inserted during SCREEN PRINT OPERATOR?: No - Respiratory Oxygen Delivery Method: Room Air Received Nebulizer Treatments: No Was the Patient Ventilated with Bag/Mask 100% O2?: No Secretions Suctioned?: No Was the Patient Intubated?: No Was the Patient Placed on a Ventilator?: No - Medication Medications Administered During SCREEN PRINT OPERATOR: Zofran IV push - Diagnostic Test Ordered EKG: No Chest X-Ray: No CT Scan: No Other Diagnostic Test Ordered: X-ray of Abdomen ordered CPR started during SCREEN PRINT OPERATOR?: No - Vital Signs Vital Signs: Rapid Response Vital Sign Blood Pressure 154/99 Pulse Rate 114 Respiratory Rate 17 Oxygen Saturation 100 - Sepsis Screen Part 2 Sepsis Screen Part 2: Glucose elevated, Pt not on steroids - Time SCREEN PRINT OPERATOR Ended Time SCREEN PRINT OPERATOR Ended: 09:30 - Vital Signs at end of SCREEN PRINT OPERATOR Vital Signs at end of SCREEN PRINT OPERATOR: Rapid Response End Vital Sign Blood Pressure 155/90 Pulse Rate 117 Respiratory Rate 17 O2 Sat by Pulse Oximetry 100 - Recommendations SCREEN PRINT OPERATOR Level of Care Recommendations: Remain in current setting I.Reason for SCREEN PRINT OPERATOR - A) Acute Change in Patient: (Select all that apply): Acute change in mental status - Neurological Status (Select all that apply): Lethargic - Constitutional Appears: In Acute Distress - Head Head Exam: ATRAUMATIC, NORMAL INSPECTION - Eyes Eye Exam: EOMI, PERRL - Respiratory Exam Respiratory Exam: Clear to Ausculation Bilateral, NORMAL BREATHING PATTERN - Cardiovascular Exam Cardiovascular Exam: REGULAR RHYTHM, +S1, +S2. absent: Gallop - GI/Abdominal Exam GI & Abdominal Exam: Soft, Tenderness (mild diffuse), Normal Bowel Sounds. absent: Distended, Rigid - Neurological Exam Neurological Exam: Alert Additional exam: Patient was lethargic on arrival not responding to verbal commands but woke up during SCREEN PRINT OPERATOR and remained alert, oriented and awake - Extremities Exam Extremities Exam: Normal Capillary Refill Plan - Assessment of Findings&Treatment Plan 27 y/o f with hx of CKD, Gastroparesis, DM and HTN is called SCREEN PRINT OPERATOR for AMS On arrival patient was found nor responding to verbal commands but woke with several episodes of clear/pinkish NBNB vomiting and c/o abd pain, VS as follow: HR113, BP 154/99 O2sat 100% Accucheck 300s A&P -AMS Resolved R/o Seizures. MRI w/o contrast stat ordered Poss due to hyperglycemia vs NICKI R/O Acidemia ABG ordered -NICKI on CKD creat 6.1 this morning Was evaluated by Nephro Yesterday Planned is for gentle hydration for now and kidney transplant and HD as per Nephro as outpatient -Leukocytosis/Fever R/O pneumonia F/U CXR -Vomiting NPO Zofran IV given Started on Protonix daily POss due to Hx of gastroparesis C/W Reglan and Zofran as ordered -Uncontrolled DM Accucheck 300s C/w current treatment as per PMD
--- NOTE | 2017-11-14 11:37 | RAD ---
Date of service: 11/14/2017 HISTORY: leukocytosis/AMS COMPARISON: No prior. FINDINGS: LUNGS: No active pulmonary disease. PLEURA: No significant pleural effusion identified, no pneumothorax apparent. CARDIOVASCULAR: Normal. OSSEOUS STRUCTURES: No significant abnormalities. VISUALIZED UPPER ABDOMEN: Normal. OTHER FINDINGS: None. IMPRESSION: No active disease.
[2017-11-14] MEDS ORDERED: Sodium Chloride 0.45% 1,000 ML IV SCH (12:45)
[2017-11-14 15:02] LABS: HYPOCHROMIC SLIGHT; LYMPHOCYTE 14 % (20-50); MONOCYTE 5 % (0-10); NEUTROPHIL 81 % (42-75); PLATELET ESTIMATE SLIGHTLY INCREASED (NORMAL); TOTAL CELLS COUNTED 100
[2017-11-14 15:03] LABS: LARGE PLATELETS PRESENT
[2017-11-14] MEDS ORDERED: Metoprolol 1 mg/ml Inj IVP STA (16:05)
--- NOTE | 2017-11-14 17:37 | CP.PCM.PN ---
Subjective - Date & Time of Evaluation Date of Evaluation: 11/14/17 Time of Evaluation: 17:35 - Subjective Subjective: Patient again vomiting today, made NPO; asking for pain meds frequently; Objective - Vital Signs/Intake and Output Vital Signs (last 24 hours): Temp Pulse Resp BP Pulse Ox 98.8 F 102 H 20 181/118 H 100 11/14/17 16:11 11/14/17 16:18 11/14/17 16:11 11/14/17 16:18 11/14/17 16:11 Intake and Output: 11/14/17 11/14/17 06:59 18:59 Intake Total 1185 Output Total 600 Balance 585 - Medications Medications: Current Medications Acetaminophen (Tylenol 325mg Tab) 650 mg PO Q4 PRN PRN Reason: Fever >100.4 F Last Admin: 11/13/17 13:50 Dose: 650 mg Amlodipine Besylate (Norvasc) 10 mg PO DAILY [facility] Last Admin: 11/14/17 10:08 Dose: Not Given Clonidine HCl (Catapres Tts1 0.1 Mg/24 Hr) 1 patch TD Q7D [facility] Ergocalciferol (Drisdol 50,000 Intl Units Cap) 1 cap PO QWK [facility] Ferrous Sulfate (Feosol) 325 mg PO BID [facility] Last Admin: 11/14/17 09:56 Dose: Not Given Folic Acid (Folic Acid) 1 mg PO DAILY [facility] Last Admin: 11/14/17 09:57 Dose: Not Given Hydralazine HCl (Apresoline) 10 mg IV Q6 PRN PRN Reason: SBP>180 or DBP>110 Ciprofloxacin (Cipro 400mg/200ml Dsw) 400 mg in 200 mls @ 200 mls/hr IVPB Q12 [facility]; Protocol Metronidazole (Flagyl 500mg/100ml Ns) 100 mls @ 100 mls/hr IVPB Q8 [facility]; Protocol Sodium Chloride (Sodium Chloride 0.45%) 1,000 mls @ 150 mls/hr IV .Q6H40M [facility] Stop: 11/15/17 12:42 Insulin Detemir (Levemir) 20 units SC HS [facility] Insulin Human Lispro (Humalog) 5 units SC ACTID [facility] Last Admin: 11/14/17 12:38 Dose: Not Given Insulin Human Lispro (Humalog) 0 units SC ACHS [facility]; Protocol Last Admin: 11/14/17 13:45 Dose: 3 units Metoclopramide HCl (Reglan) 10 mg IVP Q8 [facility] Last Admin: 11/14/17 16:12 Dose: 10 mg Morphine Sulfate (Morphine) 2 mg IVP Q4 PRN PRN Reason: Pain, severe (8-10) Last Admin: 11/14/17 13:53 Dose: 2 mg Ondansetron HCl (Zofran Odt) 4 mg PO Q8H PRN PRN Reason: Nausea/Vomiting Last Admin: 11/14/17 04:29 Dose: 4 mg Ondansetron HCl (Zofran Inj) 4 mg IVP Q6 PRN PRN Reason: Nausea/Vomiting Last Admin: 11/14/17 11:48 Dose: 4 mg Pantoprazole Sodium (Protonix Inj) 40 mg IVP DAILY [facility] Last Admin: 11/14/17 13:47 Dose: 40 mg - Labs Labs: 11/14/17 05:35 11/14/17 05:35 - Constitutional Appears: Non-toxic - Eye Exam Eye Exam: Normal appearance - Respiratory Exam Respiratory Exam: Clear to Ausculation Bilateral. absent: Respiratory Distress - Cardiovascular Exam Cardiovascular Exam: +S1, +S2. absent: Gallop, Rubs - Extremities Exam Additional comments: no leg edema; - Neurological Exam Neurological Exam: Alert, Awake - Skin Skin Exam: absent: Cyanosis - Additional Findings Additional findings: Lethargic but answering questions; spitting up sputum/saliva; Assessment and Plan (1) SIRS (systemic inflammatory response syndrome) Assessment & Plan: Leukocytosis in the setting of vomiting; CT abd showing possible colitis; started on cipro (should dose once daily for CrCl < 15) and flagyl; awaiting ID input; Status: Acute (2) NICKI (acute kidney injury) Assessment & Plan: NICKI on CKD IV/V; non-oliguric renal failure, clinically pre-renal due to GI losses, however, no improvement despite giving IVF yesterday; stable electrolyte status; no indication to initiate HD at this time; will continue intravascular volume repletion; -Increase half NS to 150 cc/hr -Giving dose of IV albumin 25% (hypoalbuminemia in the setting of nephrotic syndrome) -Avoid nephrotoxic agents; Status: Chronic (3) Gastroparesis Assessment & Plan: Recurrent flare with persistent vomiting although not bringing up much GI contents currently; discussed with primary attending; patient may be seeking pain meds; recommend to avoid opiates as they may worsen gastroparesis; furthermore, morphine metabolites can accumulate in renal failure; if absolutely needed, consider changing to very small dose of IV dilaudid; NSAIDS contraindicated at this late stage of CKD; Status: Acute (4) Anemia in CKD (chronic kidney disease) Assessment & Plan: Hgb relatively stable, will check iron studies; Status: Chronic (5) Hypertensive CKD (chronic kidney disease) Assessment & Plan: BP markedly elevated as is often the case when patient has her gastroparesis flares; prn IV hydralazine started; will add clonidine patch 0.1 mg; Status: Chronic
[2017-11-14] MEDS ORDERED: Albumin Human 25% (12.5 gm/50 ml) IV ONE (17:41)
[2017-11-14] MEDS: Sodium Chloride 0.45% 1,000 ML IV SCH (18:31)
[2017-11-14] MEDS: metroNIDAZOLE 500mg/100ml NS 100 ML IVPB SCH (18:36)
[2017-11-14 20:28] LABS: BASO % 0.1 % (0.0-2.0); HEMOGLOBIN 8.8 g/dL (12.0-16.0); LYMPH # 1.6 K/uL (1.0-4.3); LYMPH % 9.3 % (20.0-40.0); MEAN CELL VOLUME 86.9 fl (81.0-99.0); MEAN CORPUSCULAR HEMOGLOBIN 28.2 pg (27.0-31.0); MEAN CORPUSCULAR HGB CONC 32.4 g/dL (33.0-37.0); MEAN PLATELET VOLUME 9.4 fl (7.2-11.7); MONO # 0.7 K/uL (0.0-0.8); NEUT # 15.2 K/uL (1.8-7.0); NEUT % 86.6 % (50.0-75.0); RBC 3.13 Mil/uL (3.80-5.20); RED CELL DISTRIBUTION WIDTH 13.5 % (11.5-14.5); WHITE BLOOD COUNT 17.6 K/uL (4.8-10.8)
[2017-11-14 20:37] LABS: ALB/GLOB RATIO 0.9 (1.0-2.1); ALBUMIN 2.8 g/dL (3.5-5.0); CALCIUM 8.2 mg/dL (8.4-10.2)
[2017-11-14 20:56] LABS: ABG ALLEN TEST YES; ARTERIAL BLOOD GAS HCO3 26.9 mmol/L (21-28); ARTERIAL BLOOD GAS O2 SAT 97.6 % (95-98); ARTERIAL BLOOD GAS PCO2 37 mm/Hg (35-45); ARTERIAL BLOOD GAS PH 7.46 (7.35-7.45); ARTERIAL BLOOD GAS PO2 89 mm/Hg (80-100); ARTERIAL BLOOD GAS TCO2 27.4 mmol/L (22-28)
[2017-11-14] MEDS ORDERED: Ciprofloxacin 400mg/200ml D5W 400 MG/200 ML BAG IVPB SCH (21:00)
--- NOTE | 2017-11-14 21:42 | CP.PCM.PN ---
Subjective - Date & Time of Evaluation Date of Evaluation: 11/14/17 Time of Evaluation: 20:35 Objective - Vital Signs/Intake and Output Vital Signs (last 24 hours): Temp Pulse Resp BP Pulse Ox 98.5 F 105 H 20 156/95 H 100 11/14/17 19:46 11/14/17 20:37 11/14/17 19:46 11/14/17 20:37 11/14/17 19:46 Intake and Output: 11/14/17 11/15/17 18:59 06:59 Intake Total 1680 Output Total 400 Balance 1280 - Medications Medications: Current Medications Acetaminophen (Tylenol 325mg Tab) 650 mg PO Q4 PRN PRN Reason: Fever >100.4 F Last Admin: 11/13/17 13:50 Dose: 650 mg Amlodipine Besylate (Norvasc) 10 mg PO DAILY [facility] Last Admin: 11/14/17 10:08 Dose: Not Given Clonidine HCl (Catapres Tts1 0.1 Mg/24 Hr) 1 patch TD Q7D [facility] Last Admin: 11/14/17 18:42 Dose: 1 patch Ergocalciferol (Drisdol 50,000 Intl Units Cap) 1 cap PO QWK [facility] Ferrous Sulfate (Feosol) 325 mg PO BID [facility] Last Admin: 11/14/17 09:56 Dose: Not Given Folic Acid (Folic Acid) 1 mg PO DAILY [facility] Last Admin: 11/14/17 09:57 Dose: Not Given Hydralazine HCl (Apresoline) 10 mg IV Q6 PRN PRN Reason: SBP>180 or DBP>110 Last Admin: 11/14/17 19:12 Dose: 10 mg Metronidazole (Flagyl 500mg/100ml Ns) 100 mls @ 100 mls/hr IVPB Q8 [facility]; Protocol Last Admin: 11/14/17 18:36 Dose: 100 mls/hr Sodium Chloride (Sodium Chloride 0.45%) 1,000 mls @ 150 mls/hr IV .Q6H40M [facility] Stop: 11/15/17 12:42 Last Admin: 11/14/17 18:31 Dose: 150 mls/hr Piperacillin Sod/Tazobactam (Sod 2.25 gm/ Sodium Chloride) 100 mls @ 100 mls/hr IVPB Q8 [facility]; Protocol Last Admin: 11/14/17 20:45 Dose: 100 mls/hr Insulin Detemir (Levemir) 20 units SC HS [facility] Insulin Human Lispro (Humalog) 5 units SC ACTID [facility] Last Admin: 11/14/17 18:28 Dose: Not Given Insulin Human Lispro (Humalog) 0 units SC ACHS [facility]; Protocol Last Admin: 11/14/17 18:28 Dose: 1 units Metoclopramide HCl (Reglan) 10 mg IVP Q8 [facility] Last Admin: 11/14/17 16:12 Dose: 10 mg Morphine Sulfate (Morphine) 2 mg IVP Q4 PRN PRN Reason: Pain, severe (8-10) Last Admin: 11/14/17 13:53 Dose: 2 mg Ondansetron HCl (Zofran Odt) 4 mg PO Q8H PRN PRN Reason: Nausea/Vomiting Last Admin: 11/14/17 04:29 Dose: 4 mg Ondansetron HCl (Zofran Inj) 4 mg IVP Q6 PRN PRN Reason: Nausea/Vomiting Last Admin: 11/14/17 11:48 Dose: 4 mg Pantoprazole Sodium (Protonix Inj) 40 mg IVP DAILY [facility] Last Admin: 11/14/17 13:47 Dose: 40 mg - Labs Labs: 11/14/17 20:06 11/14/17 20:06
[2017-11-14] MEDS ORDERED: Insulin Detemir 100 Units/ml Inj SC SCH (22:00)
[2017-11-15] MEDS: metroNIDAZOLE 500mg/100ml NS 100 ML IVPB SCH ×3 (01:15→17:27)
[2017-11-15] MEDS: Sodium Chloride 0.45% 1,000 ML IV SCH ×2 (01:24→12:52)
[2017-11-15] MEDS ORDERED: Insulin Lispro (humaLOG) 100 Units/ml Inj SC STA (05:49)
--- NOTE | 2017-11-15 06:26 | CON ---
DATE: 11/14/2017 LOCATION: Room 408. SUBJECTIVE: This is a 27-year-old female with known history of type 1 insulin-dependent diabetes, presenting here with an apparent seizure event with fluctuating glycemic profile because of the variability of her oral intake and is now being referred for diabetic evaluation and management. PAST MEDICAL HISTORY: As mentioned above, history of type 1 insulin-dependent diabetes, currently using a [employer] insulin pump at home which she actually has turned off because of the suboptimal meal portions and the recurrent and intractable vomiting episodes. History of multiple hospital readmissions for diabetic gastroparesis and recurrent abdominal pain. Her GI workup has been extensive and has been apparently negative as per the family. History of diabetic retinopathy, polyneuropathy, and nephropathy with progressive renal insufficiency and underlying chronic kidney disease. She apparently has been diagnosed to have nephrotic syndrome and is followed very closely by a dog walker. History of hypertension and dyslipidemia, history of chronic anemia as noted. FAMILY HISTORY: Positive for diabetes, hypertension. SOCIAL HISTORY: The patient has a supportive mother and family. No known substance use. REVIEW OF SYSTEMS: As mentioned above. Admits to generalized body weakness with episodic bouts of dizziness and lightheadedness with near syncopal episodes as noted. Also admits to bifrontal headaches and visual blurring. No chest pains or palpitations, but admits to progressive shortness of breath, especially on exertion. Her oral intake has been variable and suboptimal with persistent nausea, dyspepsia, and supervening diffuse abdominal pain with intractable vomiting episodes as noted. Also admits to marked polyuria and nocturia and polydipsia with lower extremity painful paresthesias. PHYSICAL EXAMINATION: GENERAL: An average built female in no apparent distress. VITAL SIGNS: With a blood pressure of 150/90, pulse of 100 beats per minute and regular, temperature 98, respirations of 20, height is 5 feet 1 inch, weight is 150 pounds. HEENT: Head, normocephalic. Eyes, anicteric with pink conjunctivae. Funduscopy is not possible at this time. Ears, nose, and throat otherwise normal. NECK: Supple. Thyroid gland is normal in size. No carotid bruits or cervical adenopathy. CARDIOPULMONARY: Adynamic precordium. S1, S2. Rapid and regular. LUNGS: Show scattered rhonchi. ABDOMEN: Flat, soft with positive bowel sounds. EXTREMITIES: No peripheral edema. Pulses are +2 bilaterally. LABORATORY DATA: WBC is 17.6, hemoglobin of 8.8, hematocrit of 27, MCV 86, platelets 369. Chemistries today showed a BUN of 31, sodium 137, potassium 3.9, chloride 102, CO2 is 27, glucose 212, and creatinine 5.2. The initial glucose values over the past 24 hours have been extremely elevated at 244 to 429 and 495 mg/dL. ASSESSMENT: This is a 27-year-old female with uncontrolled and decompensated type 1 insulin-dependent diabetes with extremes of glycemic fluctuations related to the variability of her oral intake and presenting initially with symptomatic hypoglycemia and associated neuroglycopenic and hyperadrenergic manifestations of the same. There has been an apparent seizure event witnessed by the family associated with hyperadrenergic manifestations with no tremors or loss of consciousness, otherwise. Moreover, she also has extremes of glycemic fluctuations with marked hyperglycemic accelerations over the last 24 hours as noted thereof. She also has diabetic microvascular complications of retinopathy, polyneuropathy, and nephropathy with advanced azotemia with concomitant significant history of nephrotic syndrome as noted. PLAN OF MANAGEMENT: We will modify her current insulin regimen as she has been kept n.p.o., and we will discontinue all the Humalog given as 5 units t.i.d. before meals as ordered. We will modify the coverage scale to a low-dose algorithm using Humalog insulin only for glucose levels above 250, and detailed orders have been given. We will lower the basal insulin with Levemir to be given as 12 units subcu at bedtime daily to start tonight. We will obtain serial chemistries and supplement accordingly as needed. A hemoglobin A1c will be done to confirm her prior glycemic control and baseline thyroid function studies will be ordered. We will follow. Yamileth Charles MD
[2017-11-15 07:34] LABS: IRON 24 ug/dL (37-170)
[2017-11-15 07:44] LABS: % IRON SATURATION 14 % (20-55); TOTAL IRON BINDING CAPACITY 171 ug/dL (250-450)
[2017-11-15] MEDS: Insulin Lispro (humaLOG) 100 Units/ml Inj SC SCH ×4 (08:44→22:08)
[2017-11-15 09:10] LABS: ALBUMIN 2.8 g/dL (3.5-5.0); CALCIUM 8.5 mg/dL (8.4-10.2)
--- NOTE | 2017-11-15 11:43 | CP.PCM.CON ---
History of Present Illness - History of Present Illness History of Present Illness: Infectious Disease Consultation Note- asked to see this patietn for evaluation of leukocytosis and pancolitis. HPI- History obtained mostly from the medical chart and the nursing staff as patient is not very cooperative in answering questions and states wants to rest. Pt. is a 27 year old female with PMH of DM I on insulin pump at home, gastroparesis and CKD and seizure disorder and pseudoseizures who was admitted few days ago with c/o nausea and vomiting and possible seizure. Emesis mostly yellow, no blood tinged. patient had CT on admission which was read asmild rectosigmoid wall thickening and she has also leukocytosis and hence i'm asked to evaluate adn help with antibiotic management. MHx: See above SurgHx: Insulin pump Meds: Reviewed in MAR FamHx: DM, HTN SocHx: Neg x 3 All: NKDA Review of Systems - Review of Systems Review of Systems: ROS- answers only few questions + naue and vomiting, denies any fever, denies any diarrhea, mónica any dysurea, refuses to answer other questions Past Patient History - Past Medical History & Family History Past Medical History?: Yes - Past Social History Alcohol: None Drugs: Denies - CARDIAC Hx Hypertension: Yes - PULMONARY Hx Respiratory Disorders: No - NEUROLOGICAL Hx Neurological Disorder: No - HEENT Hx HEENT Problems: No - RENAL Hx Chronic Kidney Disease: Yes - ENDOCRINE/METABOLIC Hx Endocrine Disorders: Yes Hx Diabetes Mellitus Type 1: Yes - HEMATOLOGICAL/ONCOLOGICAL Hx Blood Disorders: No - INTEGUMENTARY Hx Dermatological Problems: No - MUSCULOSKELETAL/RHEUMATOLOGICAL Hx Musculoskeletal Disorders: No Hx Falls: No - GASTROINTESTINAL Hx Gastrointestinal Disorders: Yes Other/Comment: Gastroparesis - GENITOURINARY/GYNECOLOGICAL Hx Genitourinary Disorders: No - PSYCHIATRIC Hx Psychophysiologic Disorder: No Hx Substance Use: No - SURGICAL HISTORY Hx Surgeries: No - ANESTHESIA Hx Anesthesia: No Hx Anesthesia Reactions: No Meds Allergies/Adverse Reactions: Allergies Allergy/AdvReac Type Severity Reaction Status Date / Time No Known Allergies Allergy Verified 11/04/17 10:12 - Medications Medications: Current Medications Acetaminophen (Tylenol 325mg Tab) 650 mg PO Q4 PRN PRN Reason: Fever >100.4 F Last Admin: 11/13/17 13:50 Dose: 650 mg Amlodipine Besylate (Norvasc) 10 mg PO DAILY [facility] Last Admin: 11/14/17 10:08 Dose: Not Given Clonidine HCl (Catapres Tts1 0.1 Mg/24 Hr) 1 patch TD Q7D [facility] Last Admin: 11/14/17 18:42 Dose: 1 patch Ergocalciferol (Drisdol 50,000 Intl Units Cap) 1 cap PO QWK [facility] Ferrous Sulfate (Feosol) 325 mg PO BID [facility] Last Admin: 11/14/17 09:56 Dose: Not Given Folic Acid (Folic Acid) 1 mg PO DAILY [facility] Last Admin: 11/14/17 09:57 Dose: Not Given Hydralazine HCl (Apresoline) 10 mg IV Q6 PRN PRN Reason: SBP>180 or DBP>110 Last Admin: 11/14/17 19:12 Dose: 10 mg Metronidazole (Flagyl 500mg/100ml Ns) 100 mls @ 100 mls/hr IVPB Q8 [facility]; Protocol Last Admin: 11/15/17 08:42 Dose: 100 mls/hr Sodium Chloride (Sodium Chloride 0.45%) 1,000 mls @ 150 mls/hr IV .Q6H40M [facility] Stop: 11/15/17 12:42 Last Admin: 11/15/17 01:24 Dose: 150 mls/hr Piperacillin Sod/Tazobactam (Sod 2.25 gm/ Sodium Chloride) 100 mls @ 100 mls/hr IVPB Q8 [facility]; Protocol Last Admin: 11/15/17 10:03 Dose: 100 mls/hr Insulin Detemir (Levemir) 12 units SC [facility] Insulin Human Lispro (Humalog) 0 units SC ACHS [facility] Last Admin: 11/15/17 08:44 Dose: 6 units Labetalol HCl (Trandate) 20 mg IVP Q4H PRN PRN Reason: Systolic Blood Pressure Metoclopramide HCl (Reglan) 10 mg IVP Q8 [facility] Last Admin: 11/15/17 08:47 Dose: 10 mg Morphine Sulfate (Morphine) 2 mg IVP Q4 PRN PRN Reason: Pain, severe (8-10) Last Admin: 11/15/17 04:51 Dose: 2 mg Ondansetron HCl (Zofran Odt) 4 mg PO Q8H PRN PRN Reason: Nausea/Vomiting Last Admin: 11/14/17 04:29 Dose: 4 mg Ondansetron HCl (Zofran Inj) 4 mg IVP Q6 PRN PRN Reason: Nausea/Vomiting Last Admin: 11/15/17 00:21 Dose: 4 mg Pantoprazole Sodium (Protonix Inj) 40 mg IVP DAILY [facility] Last Admin: 11/15/17 08:48 Dose: 40 mg Physical Exam - Constitutional Appears: No Acute Distress - Head Exam Head Exam: ATRAUMATIC - Eye Exam Eye Exam: PERRL - ENT Exam ENT Exam: Normal Oropharynx - Neck Exam Neck exam: Positive for: Full Rom - Respiratory Exam Respiratory Exam: Clear to Auscultation Bilateral, NORMAL BREATHING PATTERN - Cardiovascular Exam Cardiovascular Exam: RRR, +S1, +S2 - GI/Abdominal Exam GI & Abdominal Exam: Normal Bowel Sounds, Soft Additional comments: ND, NT - Extremities Exam Extremities exam: Positive for: normal inspection - Neurological Exam Neurological exam: Alert, Oriented x3 - Additional Findings Additional findings: Lines- right arm picc line boucher Results - Vital Signs Recent Vital Signs: Last Vital Signs Temp 98 F 11/15/17 08:20 Pulse 109 H 11/15/17 08:20 Resp 20 11/15/17 08:20 BP 164/98 H 11/15/17 08:20 Pulse Ox 100 11/15/17 08:20 - Labs Result Diagrams: 11/15/17 15:15 11/15/17 17:00 Labs: Laboratory Results - last 24 hr 11/14/17 11/14/17 11/14/17 05:35 17:08 20:06 WBC 17.6 H RBC 3.13 L Hgb 8.8 L Hct 27.2 L MCV 86.9 MCH 28.2 MCHC 32.4 L RDW 13.5 Plt Count 369 MPV 9.4 Neut % (Auto) 86.6 H Lymph % (Auto) 9.3 L [place] % (Auto) 4.0 Eos % (Auto) 0.0 Baso % (Auto) 0.1 Neut # (Auto) 15.2 H Lymph # (Auto) 1.6 [place] # (Auto) 0.7 Eos # (Auto) 0.0 Baso # (Auto) 0.0 Neutrophils % (Manual) 81 H Lymphocytes % (Manual) 14 L Monocytes % (Manual) 5 Platelet Estimate Slightly increased H Large Platelets Present Hypochromasia (manual) Slight pCO2 pO2 HCO3 ABG pH ABG Total CO2 ABG O2 Saturation ABG Base Excess José Miguel Test ABG Potassium A-a O2 Difference Glucose Lactate FiO2 Sodium Potassium Chloride Carbon Dioxide Anion Gap BUN Creatinine Est GFR ( Amer) Est GFR (Non-Af Amer) POC Glucose (mg/dL) 155 H Random Glucose Lactic Acid Calcium Phosphorus Magnesium Iron TIBC % Saturation Ferritin Total Bilirubin AST ALT Alkaline Phosphatase Total Protein Albumin Globulin Albumin/Globulin Ratio TSH 3rd Generation Arterial Blood Potassium 11/14/17 11/14/17 11/14/17 20:06 20:06 20:43 WBC RBC Hgb Hct MCV MCH MCHC RDW Plt Count MPV Neut % (Auto) Lymph % (Auto) [place] % (Auto) Eos % (Auto) Baso % (Auto) Neut # (Auto) Lymph # (Auto) [place] # (Auto) Eos # (Auto) Baso # (Auto) Neutrophils % (Manual) Lymphocytes % (Manual) Monocytes % (Manual) Platelet Estimate Large Platelets Hypochromasia (manual) pCO2 37 pO2 89 HCO3 26.9 ABG pH 7.46 H ABG Total CO2 27.4 ABG O2 Saturation 97.6 ABG Base Excess 2.5 José Miguel Test Yes ABG Potassium 4.1 A-a O2 Difference 14.0 Glucose 247 H Lactate 0.8 FiO2 21.0 Sodium 137 136.0 Potassium 3.9 Chloride 102 104.0 Carbon Dioxide 27 Anion Gap 12 BUN 31 H Creatinine 5.2 H Est GFR ( Amer) 12 Est GFR (Non-Af Amer) 10 POC Glucose (mg/dL) Random Glucose 212 H Lactic Acid 0.9 Calcium 8.2 L Phosphorus Magnesium Iron TIBC % Saturation Ferritin Total Bilirubin 0.1 L AST 19 ALT 24 Alkaline Phosphatase 113 Total Protein 5.8 L Albumin 2.8 L Globulin 3.0 Albumin/Globulin Ratio 0.9 L TSH 3rd Generation Arterial Blood Potassium 4.1 11/14/17 11/15/17 11/15/17 21:36 05:22 06:29 WBC RBC Hgb Hct MCV MCH MCHC RDW Plt Count MPV Neut % (Auto) Lymph % (Auto) [place] % (Auto) Eos % (Auto) Baso % (Auto) Neut # (Auto) Lymph # (Auto) [place] # (Auto) Eos # (Auto) Baso # (Auto) Neutrophils % (Manual) Lymphocytes % (Manual) Monocytes % (Manual) Platelet Estimate Large Platelets Hypochromasia (manual) pCO2 pO2 HCO3 ABG pH ABG Total CO2 ABG O2 Saturation ABG Base Excess José Miguel Test ABG Potassium A-a O2 Difference Glucose Lactate FiO2 Sodium Potassium Chloride Carbon Dioxide Anion Gap BUN Creatinine Est GFR ( Amer) Est GFR (Non-Af Amer) POC Glucose (mg/dL) 266 H > 500 H* Random Glucose Lactic Acid Calcium Phosphorus Magnesium Iron 24 L TIBC 171 L % Saturation 14 L Ferritin Total Bilirubin AST ALT Alkaline Phosphatase Total Protein Albumin Globulin Albumin/Globulin Ratio TSH 3rd Generation Arterial Blood Potassium 11/15/17 11/15/17 06:29 11:27 WBC RBC Hgb Hct MCV MCH MCHC RDW Plt Count MPV Neut % (Auto) Lymph % (Auto) [place] % (Auto) Eos % (Auto) Baso % (Auto) Neut # (Auto) Lymph # (Auto) [place] # (Auto) Eos # (Auto) Baso # (Auto) Neutrophils % (Manual) Lymphocytes % (Manual) Monocytes % (Manual) Platelet Estimate Large Platelets Hypochromasia (manual) pCO2 pO2 HCO3 ABG pH ABG Total CO2 ABG O2 Saturation ABG Base Excess José Miguel Test ABG Potassium A-a O2 Difference Glucose Lactate FiO2 Sodium 134 Potassium 4.2 Chloride 99 Carbon Dioxide 13 L Anion Gap 26 H BUN 38 H Creatinine 5.3 H Est GFR ( Amer) 12 Est GFR (Non-Af Amer) 10 POC Glucose (mg/dL) 233 H Random Glucose 645 H* D Lactic Acid Calcium 8.5 Phosphorus 6.5 H Magnesium 2.5 H Iron TIBC % Saturation Ferritin 140.0 H Total Bilirubin 0.3 AST 18 ALT 11 Alkaline Phosphatase 123 Total Protein 5.7 L Albumin 2.8 L Globulin 2.9 Albumin/Globulin Ratio 1.0 TSH 3rd Generation 1.67 Arterial Blood Potassium Assessment & Plan (1) Gastroparesis Status: Acute (2) Intractable vomiting Status: Acute (3) CKD (chronic kidney disease), stage IV Status: Chronic (4) Leukocytosis Status: Acute - Assessment and Plan (Free Text) Assessment: A/P- 27 year old female with TYpe 1DM, gastroparesis, CKD admitted with intarctable v omiting and ? seizures. afebrile has leukocytosis. source of leukocytosis unclear at this time since CT report only mild rectosigmoid thickening, no other reported findings as per CT report. leukocytosis can also develop from seizures as well, however as per neuro note- ? seizure activity. plan- check blood cx x 2. check urine cx. would advise to remove boucher if patient is able to void. r/o c.diff as pt. was recently at another hospital and had received antibiotics there as per nurse's report. continue with empiric zosyn adn flagyl for the mild rectosigmoid thickening day #1. monitor wbc. check cxr r/o aspiration pneumonitis. GI eval for intractable vomiting. all labs and imaging reviewed. All above d/a patient and she verbalizes understanding of all above. Thank you fro allowing me to take part in the care of this patient.
[2017-11-15] MEDS ORDERED: Sodium Chloride 0.45% 1,000 ML IV SCH (14:15)
[2017-11-15 15:39] LABS: BASO # 0.1 K/uL (0.0-0.2); BASO % 0.4 % (0.0-2.0); HEMOGLOBIN 9.3 g/dL (12.0-16.0); LYMPH # 2.2 K/uL (1.0-4.3); LYMPH % 10.3 % (20.0-40.0); MEAN CELL VOLUME 86.2 fl (81.0-99.0); MEAN CORPUSCULAR HEMOGLOBIN 27.8 pg (27.0-31.0); MEAN CORPUSCULAR HGB CONC 32.3 g/dL (33.0-37.0); MEAN PLATELET VOLUME 9.7 fl (7.2-11.7); MONO # 1.3 K/uL (0.0-0.8); MONO % 6.1 % (0.0-10.0); NEUT # 18.1 K/uL (1.8-7.0); NEUT % 83.2 % (50.0-75.0); RBC 3.36 Mil/uL (3.80-5.20); RED CELL DISTRIBUTION WIDTH 13.4 % (11.5-14.5); WHITE BLOOD COUNT 21.8 K/uL (4.8-10.8)
[2017-11-15] MEDS: Labetalol 5 mg/ml Inj 20ML IVP PRN (15:48)
[2017-11-15] MEDS: Sodium Chloride 0.9% 1,000 ML IV SCH (16:05)
--- NOTE | 2017-11-15 16:52 | CP.PCM.PCO ---
Physician Communication Note - Physician Communication Note Physician Communication Note: Patient refusing peripheral blood culture, will obtain from PICC for now.
--- NOTE | 2017-11-15 17:21 | PN ---
DATE: 11/15/2017 ENDO FOLLOWUP NOTE LOCATION: Room 414. SUBJECTIVE: This is a 27-year-old female with recent uncontrolled type 1 insulin-dependent diabetes, presenting here with acute exacerbation of diabetic gastroparesis and associated diffuse abdominal pain and intractable vomiting, and is now being followed closely for metabolic management. Her glycemic levels are extremely elevated at this time and overnight her glucose values have ranged from 233 to over 500 mg/dL. Her CO2 is now 13. The rest of the chemistries shows a BUN of 38, sodium 134, potassium 4.2, chloride 99, PO2 is 645, and creatinine is 5.3. ASSESSMENT: This is a 27-year-old female with uncontrolled type 1 insulin-dependent diabetes, presenting here with diabetic gastroparesis and supervening marked renal insufficiency and progressive azotemia with underlying chronic kidney disease and is now being followed closely for metabolic management. PLAN OF MANAGEMENT: We will modify her basal insulin and increase the Levemir to 24 units subcu at bedtime daily, to start tonight. We will continue the low-dose correction scale using Humalog insulin as given. We will also continue the low-dose correction scale using Humalog insulin as ordered. We will obtain serial chemistries and supplement accordingly as needed. We will continue the vigorous IV hydration as ongoing at this time as noted. We will obtain serial chemistries and supplement accordingly as needed. We will follow. Yamileth Charles MD
[2017-11-15 17:51] LABS: CALCIUM 8.2 mg/dL (8.4-10.2)
[2017-11-15 17:52] LABS: SQUAMOUS EPITHIAL < 1 /hpf (0-5); URINE BACTERIA RARE (<OCC); URINE BILIRUBIN NEGATIVE (NEGATIVE); URINE BLOOD SMALL (NEGATIVE); URINE CLARITY SLIGHTY-CLOUDY (Clear); URINE COLOR YELLOW (YELLOW); URINE GLUCOSE (UA) >=500 mg/dL (Normal); URINE LEUKOCYTE ESTERASE TRACE Leu/uL (Negative); URINE PROTEIN >=500 mg/dL (NEGATIVE); URINE UROBILINOGEN 0.2-1.0 mg/dL (0.2-1.0)
--- NOTE | 2017-11-15 18:36 | PCM.RRT ---
<Robe Negrete - Last Filed: 11/15/17 18:43> MEDIA ANALYST Nurse Assessment - Situation Location: [address] [place] [address] Room Number: [id number] MEDIA ANALYST Reason for Call: Change in Mental Status MEDIA ANALYST Called By: RN - IV IV Inserted during MEDIA ANALYST?: No - Respiratory Oxygen Delivery Method: Room Air Received Nebulizer Treatments: No Was the Patient Ventilated with Bag/Mask 100% O2?: No Secretions Suctioned?: No Was the Patient Intubated?: No Was the Patient Placed on a Ventilator?: No - Medication Medications Administered During MEDIA ANALYST: Zofran IV push - Diagnostic Test Ordered EKG: No Chest X-Ray: No CT Scan: No Other Diagnostic Test Ordered: X-ray of Abdomen ordered CPR started during MEDIA ANALYST?: No - Vital Signs Vital Signs: Rapid Response Vital Sign Blood Pressure 154/99 Pulse Rate 114 Respiratory Rate 17 Oxygen Saturation 100 - Sepsis Screen Part 2 Sepsis Screen Part 2: Glucose elevated, Pt not on steroids - Time MEDIA ANALYST Ended Time MEDIA ANALYST Ended: 09:30 - Vital Signs at end of MEDIA ANALYST Vital Signs at end of MEDIA ANALYST: Rapid Response End Vital Sign Blood Pressure 155/90 Pulse Rate 117 Respiratory Rate 17 O2 Sat by Pulse Oximetry 100 - Recommendations MEDIA ANALYST Level of Care Recommendations: Remain in current setting Plan - Assessment of Findings&Treatment Plan MEDIA ANALYST Time: 18:04 MEDIA ANALYST Location: 414 MEDIA ANALYST Arrival: 18:05 MEDIA ANALYST Reason: Seizure-like activity S: Pt was noticed to have tonic-clonic, seizure-like activity O: MEDIA ANALYST Vitals: BP: 143/60 HR: 160 RR: 18 HEENT: a traumatic, pupils reactive to light Cardiac: S1S2 Resp: clear to auscultation bilaterally Abdo: soft, active bowel sounds Neuro: flaccid on all extremities. Pt did not lose bowel/urinary incontinence No foaming of mouth or clenching of teeth Generalized extremity, non contracted "shaking" pattern noted MEDIA ANALYST intervention: -Ativan 1 gm stat -Labs: Prolactin, CPK -Accucheck A/P: 27 yo F with pmhx of DMI with CKD stage V -Monitor for further seizure activity -Dr. Kent on board. Pt had recent EEG -Accuchecks and insulin -F/U: prolactin and CK -Pt on npo; will consider metoprolol PO for added BP management MEDIA ANALYST end: 18:25 MEDIA ANALYST Leader: Dr. Mcdonnell MEDIA ANALYST residents: Robe Negrete MD PGY2; SHAN Dixon MD PGY2 <Monika Mcdonnell - Last Filed: 11/15/17 19:19> MEDIA ANALYST Nurse Assessment - Vital Signs Vital Signs: Rapid Response Vital Sign Blood Pressure 143/60 Pulse Rate 160 Respiratory Rate 17 Oxygen Saturation 99 - Vital Signs at end of MEDIA ANALYST Vital Signs at end of MEDIA ANALYST: Rapid Response End Vital Sign Blood Pressure 150/82 Pulse Rate 108 Respiratory Rate 16 O2 Sat by Pulse Oximetry 100 Attending/Attestation - Attestation I have personally seen and examined this patient.: Yes I have fully participated in the care of the patient.: Yes I have reviewed all pertinent clinical information, including history, physical exam and plan: Yes Notes (Text): Patient's seizure seem atypical. Ativan 1 mg IV given Neurology on consult EEG Prolactin and CPK stat PMD - Dr Santos notified of event
--- NOTE | 2017-11-15 18:40 | CP.PCM.PN ---
Subjective - Date & Time of Evaluation Date of Evaluation: 11/15/17 Time of Evaluation: 17:00 - Subjective Subjective: Patient seen before [employer] that was called this evening; patient was vomiting small amount of fluid during encounter, mostly clear; asking for ativan saying that it helps with nausea; per nursing staff, seen taking juice despite being NPO; Objective - Vital Signs/Intake and Output Vital Signs (last 24 hours): Temp Pulse Resp BP Pulse Ox 98.1 F 99 H 20 180/104 H 100 11/15/17 16:10 11/15/17 16:10 11/15/17 16:10 11/15/17 16:10 11/15/17 16:10 - Medications Medications: Current Medications Acetaminophen (Tylenol 325mg Tab) 650 mg PO Q4 PRN PRN Reason: Fever >100.4 F Last Admin: 11/13/17 13:50 Dose: 650 mg Amlodipine Besylate (Norvasc) 10 mg PO DAILY [facility] Last Admin: 11/14/17 10:08 Dose: Not Given Clonidine HCl (Catapres Tts1 0.1 Mg/24 Hr) 1 patch TD Q7D [facility] Last Admin: 11/14/17 18:42 Dose: 1 patch Ergocalciferol (Drisdol 50,000 Intl Units Cap) 1 cap PO QWK RAISA Ferrous Sulfate (Feosol) 325 mg PO BID [facility] Last Admin: 11/14/17 09:56 Dose: Not Given Folic Acid (Folic Acid) 1 mg PO DAILY [facility] Last Admin: 11/14/17 09:57 Dose: Not Given Hydralazine HCl (Apresoline) 10 mg IV Q6 PRN PRN Reason: SBP>180 or DBP>110 Last Admin: 11/14/17 19:12 Dose: 10 mg Metronidazole (Flagyl 500mg/100ml Ns) 100 mls @ 100 mls/hr IVPB Q8 [facility]; Protocol Last Admin: 11/15/17 17:27 Dose: 100 mls/hr Piperacillin Sod/Tazobactam (Sod 2.25 gm/ Sodium Chloride) 100 mls @ 100 mls/hr IVPB Q8 [facility]; Protocol Last Admin: 11/15/17 16:02 Dose: 100 mls/hr Sodium Chloride (Sodium Chloride 0.9%) 1,000 mls @ 100 mls/hr IV .Q10H [facility] Stop: 11/16/17 14:11 Last Admin: 11/15/17 16:05 Dose: 100 mls/hr Insulin Detemir (Levemir) 24 units SC HS [facility] Insulin Human Lispro (Humalog) 0 units SC ACHS [facility] Last Admin: 11/15/17 16:22 Dose: Not Given Labetalol HCl (Trandate) 20 mg IVP Q4H PRN PRN Reason: Systolic Blood Pressure Last Admin: 11/15/17 15:48 Dose: 20 mg Metoclopramide HCl (Reglan) 5 mg IVP Q6H [facility] Metoprolol Tartrate (Lopressor) 25 mg PO Q12 [facility] Morphine Sulfate (Morphine) 2 mg IVP Q8H PRN PRN Reason: Pain, severe (8-10) Last Admin: 11/15/17 17:25 Dose: 2 mg Ondansetron HCl (Zofran Odt) 4 mg PO Q8H PRN PRN Reason: Nausea/Vomiting Last Admin: 11/14/17 04:29 Dose: 4 mg Ondansetron HCl (Zofran Inj) 4 mg IVP Q6 PRN PRN Reason: Nausea/Vomiting Last Admin: 11/15/17 12:57 Dose: 4 mg Pantoprazole Sodium (Protonix Inj) 40 mg IVP DAILY [facility] Last Admin: 11/15/17 08:48 Dose: 40 mg - Labs Labs: 11/15/17 15:15 11/15/17 17:00 - Constitutional Appears: Non-toxic - Eye Exam Eye Exam: Normal appearance - Respiratory Exam Respiratory Exam: Clear to Ausculation Bilateral. absent: Respiratory Distress - Cardiovascular Exam Cardiovascular Exam: +S1, +S2. absent: Gallop, Rubs - GI/Abdominal Exam GI & Abdominal Exam: Soft, Tenderness. absent: Distended - Extremities Exam Additional comments: no leg edema; - Neurological Exam Neurological Exam: Alert, Awake - Psychiatric Exam Psychiatric exam: absent: Agitated Additional comments: melancholic, tearful - Skin Skin Exam: absent: Cyanosis Assessment and Plan (1) SIRS (systemic inflammatory response syndrome) Assessment & Plan: Leukocytosis with possible colitis; on flagyl, no renal dose adjustment needed; keeping on IVF; Status: Acute (2) NICKI (acute kidney injury) Assessment & Plan: NICKI on CKD IV/V; pre-renal etiology, renal function improved with IVF; relatively stable volume and electrolyte status; no indication for initiation of HD currently; continuing IVF w/ NS at 100 cc/hr (concern for polyuria with severely uncontrolled sugars earlier and morning labs showing high anion gap metabolic acidosis, likely DKA); Status: Chronic (3) Gastroparesis Assessment & Plan: Still getting prn IV morphine very frequently; concern that this may be promotin g her gastroparesis symptoms; also, accumulation of morphine metabolites in renal failure may be causing mental status changes; Also, patient unfortunately is exhibiting drug seeking behavior and may be developing a new opiate addiction (UDS previously negative for opiates); -will stop IV morphine and change to very low dose IV dilaudid 0.3 mg q8h prn -decreasing reglan to 5 mg q6h prn (dose adjusted for renal failure); Status: Acute (4) Anemia in CKD (chronic kidney disease) Assessment & Plan: Hgb stable; low iron sat; will give EPO once BP better controlled; will consider IV iron if blood cultures negative; Status: Chronic (5) Hypertensive CKD (chronic kidney disease) Assessment & Plan: BP erratic; just started on clonidine patch yesterday, will take another 1-2 days to see effect; continue IV labetalol and hydralazine prn; Status: Chronic
--- NOTE | 2017-11-15 21:35 | CP.PCM.CON ---
History of Present Illness - History of Present Illness History of Present Illness: 27 yr old woman with multiple medical problems including gastroparesis, renal insufficiency, severe, and events that are thought to be nonepileptic. Patient was admitted for nausea and vomiting, and has had several spells that are tonic clonic in nature. She has had over 10 of these events. Patient does not state aura, or headache, but does say she is very anxious. ROS: diarrhea, nausea, vomiting, weakness diffusely. PMh/pSH:as above Fh/SH: LIves with mother. NO tobacco, no etoh. All: nkda ON exam: Normal neurological examination. no focal deficits. Past Patient History - Past Medical History & Family History Past Medical History?: Yes - Past Social History Alcohol: None Drugs: Denies - CARDIAC Hx Hypertension: Yes - PULMONARY Hx Respiratory Disorders: No - NEUROLOGICAL Hx Neurological Disorder: No - HEENT Hx HEENT Problems: No - RENAL Hx Chronic Kidney Disease: Yes - ENDOCRINE/METABOLIC Hx Endocrine Disorders: Yes - HEMATOLOGICAL/ONCOLOGICAL Hx Anemia: Yes Hx Human Immunodeficiency Virus (HIV): No - INTEGUMENTARY Hx Dermatological Problems: No - MUSCULOSKELETAL/RHEUMATOLOGICAL Hx Musculoskeletal Disorders: No Hx Falls: No - GASTROINTESTINAL Hx Gastrointestinal Disorders: Yes Other/Comment: Gastroparesis - GENITOURINARY/GYNECOLOGICAL Hx Genitourinary Disorders: No - PSYCHIATRIC Hx Psychophysiologic Disorder: No Hx Substance Use: No - SURGICAL HISTORY Hx Surgeries: No - ANESTHESIA Hx Anesthesia: No Hx Anesthesia Reactions: No Meds Allergies/Adverse Reactions: Allergies Allergy/AdvReac Type Severity Reaction Status Date / Time No Known Allergies Allergy Verified 11/04/17 10:12 - Medications Medications: Current Medications Acetaminophen (Tylenol 325mg Tab) 650 mg PO Q4 PRN PRN Reason: Fever >100.4 F Last Admin: 11/13/17 13:50 Dose: 650 mg Amlodipine Besylate (Norvasc) 10 mg PO DAILY [facility] Last Admin: 11/14/17 10:08 Dose: Not Given Clonidine HCl (Catapres Tts1 0.1 Mg/24 Hr) 1 patch TD Q7D [facility] Last Admin: 11/14/17 18:42 Dose: 1 patch Ergocalciferol (Drisdol 50,000 Intl Units Cap) 1 cap PO QWK [facility] Ferrous Sulfate (Feosol) 325 mg PO BID [facility] Last Admin: 11/14/17 09:56 Dose: Not Given Folic Acid (Folic Acid) 1 mg PO DAILY [facility] Last Admin: 11/14/17 09:57 Dose: Not Given Hydralazine HCl (Apresoline) 10 mg IV Q6 PRN PRN Reason: SBP>180 or DBP>110 Last Admin: 11/14/17 19:12 Dose: 10 mg Hydromorphone HCl (Dilaudid) 0.3 mg IVP Q8H PRN PRN Reason: Pain, severe (8-10) Metronidazole (Flagyl 500mg/100ml Ns) 100 mls @ 100 mls/hr IVPB Q8 [facility]; Protocol Last Admin: 11/15/17 17:27 Dose: 100 mls/hr Piperacillin Sod/Tazobactam (Sod 2.25 gm/ Sodium Chloride) 100 mls @ 100 mls/hr IVPB Q8 [facility]; Protocol Last Admin: 11/15/17 16:02 Dose: 100 mls/hr Sodium Chloride (Sodium Chloride 0.9%) 1,000 mls @ 100 mls/hr IV .Q10H [facility] Stop: 11/16/17 14:11 Last Admin: 11/15/17 16:05 Dose: 100 mls/hr Insulin Detemir (Levemir) 24 units SC HS [facility] Insulin Human Lispro (Humalog) 0 units SC ACHS [facility] Last Admin: 11/15/17 16:22 Dose: Not Given Labetalol HCl (Trandate) 20 mg IVP Q4H PRN PRN Reason: Systolic Blood Pressure Last Admin: 11/15/17 15:48 Dose: 20 mg Metoclopramide HCl (Reglan) 5 mg IVP Q6H [facility] Ondansetron HCl (Zofran Odt) 4 mg PO Q8H PRN PRN Reason: Nausea/Vomiting Last Admin: 11/14/17 04:29 Dose: 4 mg Ondansetron HCl (Zofran Inj) 4 mg IVP Q6 PRN PRN Reason: Nausea/Vomiting Last Admin: 11/15/17 12:57 Dose: 4 mg Pantoprazole Sodium (Protonix Inj) 40 mg IVP DAILY [facility] Last Admin: 11/15/17 08:48 Dose: 40 mg Results - Vital Signs Recent Vital Signs: Last Vital Signs Temp 99.1 F 11/15/17 19:21 Pulse 100 H 11/15/17 19:21 Resp 20 11/15/17 19:21 BP 126/79 11/15/17 19:21 Pulse Ox 100 11/15/17 19:21 - Labs Result Diagrams: 11/20/17 04:25 11/20/17 04:25 Labs: Laboratory Results - last 24 hr 11/14/17 11/15/17 11/15/17 21:36 05:22 06:29 WBC RBC Hgb Hct MCV MCH MCHC RDW Plt Count MPV Neut % (Auto) Lymph % (Auto) [place] % (Auto) Eos % (Auto) Baso % (Auto) Neut # (Auto) Lymph # (Auto) [place] # (Auto) Eos # (Auto) Baso # (Auto) Sodium Potassium Chloride Carbon Dioxide Anion Gap BUN Creatinine Est GFR ( Amer) Est GFR (Non-Af Amer) POC Glucose (mg/dL) 266 H > 500 H* Random Glucose Hemoglobin A1c Lactic Acid Calcium Phosphorus Magnesium Iron 24 L TIBC 171 L % Saturation 14 L Ferritin Total Bilirubin AST ALT Alkaline Phosphatase Total Creatine Kinase Total Protein Albumin Globulin Albumin/Globulin Ratio TSH 3rd Generation Urine Color Urine Clarity Urine pH Ur Specific Orange Urine Protein Urine Glucose (UA) Urine Ketones Urine Blood Urine Nitrate Urine Bilirubin Urine Urobilinogen Ur Leukocyte Esterase Urine RBC (Auto) Urine Microscopic WBC Ur Squamous Epith Cells Urine Bacteria B-Hydroxybutyrate 11/15/17 11/15/17 11/15/17 06:29 06:29 11:27 WBC RBC Hgb Hct MCV MCH MCHC RDW Plt Count MPV Neut % (Auto) Lymph % (Auto) [place] % (Auto) Eos % (Auto) Baso % (Auto) Neut # (Auto) Lymph # (Auto) [place] # (Auto) Eos # (Auto) Baso # (Auto) Sodium 134 Potassium 4.2 Chloride 99 Carbon Dioxide 13 L Anion Gap 26 H BUN 38 H Creatinine 5.3 H Est GFR ( Amer) 12 Est GFR (Non-Af Amer) 10 POC Glucose (mg/dL) 233 H Random Glucose 645 H* D Hemoglobin A1c 8.3 H Lactic Acid Calcium 8.5 Phosphorus 6.5 H Magnesium 2.5 H Iron TIBC % Saturation Ferritin 140.0 H Total Bilirubin 0.3 AST 18 ALT 11 Alkaline Phosphatase 123 Total Creatine Kinase Total Protein 5.7 L Albumin 2.8 L Globulin 2.9 Albumin/Globulin Ratio 1.0 TSH 3rd Generation 1.67 Urine Color Urine Clarity Urine pH Ur Specific Orange Urine Protein Urine Glucose (UA) Urine Ketones Urine Blood Urine Nitrate Urine Bilirubin Urine Urobilinogen Ur Leukocyte Esterase Urine RBC (Auto) Urine Microscopic WBC Ur Squamous Epith Cells Urine Bacteria B-Hydroxybutyrate 11/15/17 11/15/17 11/15/17 15:15 15:30 16:20 WBC 21.8 H RBC 3.36 L Hgb 9.3 L Hct 28.9 L MCV 86.2 MCH 27.8 MCHC 32.3 L RDW 13.4 Plt Count 413 H MPV 9.7 Neut % (Auto) 83.2 H Lymph % (Auto) 10.3 L [place] % (Auto) 6.1 Eos % (Auto) 0.0 Baso % (Auto) 0.4 Neut # (Auto) 18.1 H Lymph # (Auto) 2.2 [place] # (Auto) 1.3 H Eos # (Auto) 0.0 Baso # (Auto) 0.1 Sodium Potassium Chloride Carbon Dioxide Anion Gap BUN Creatinine Est GFR ( Amer) Est GFR (Non-Af Amer) POC Glucose (mg/dL) 140 H Random Glucose Hemoglobin A1c Lactic Acid Calcium Phosphorus Magnesium Iron TIBC % Saturation Ferritin Total Bilirubin AST ALT Alkaline Phosphatase Total Creatine Kinase Total Protein Albumin Globulin Albumin/Globulin Ratio [facility] 3rd Generation Urine Color Urine Clarity Urine pH Ur Specific Orange Urine Protein Urine Glucose (UA) Urine Ketones Urine Blood Urine Nitrate Urine Bilirubin Urine Urobilinogen Ur Leukocyte Esterase Urine RBC (Auto) Urine Microscopic WBC Ur Squamous Epith Cells Urine Bacteria B-Hydroxybutyrate 0.29 H 11/15/17 11/15/17 11/15/17 17:00 17:00 17:00 WBC RBC Hgb Hct MCV MCH MCHC RDW Plt Count MPV Neut % (Auto) Lymph % (Auto) [place] % (Auto) Eos % (Auto) Baso % (Auto) Neut # (Auto) Lymph # (Auto) [place] # (Auto) Eos # (Auto) Baso # (Auto) Sodium 137 Potassium 3.5 L Chloride 103 Carbon Dioxide 19 L Anion Gap 19 BUN 35 H Creatinine 4.8 H Est GFR ( Amer) 13 Est GFR (Non-Af Amer) 11 POC Glucose (mg/dL) Random Glucose 212 H Hemoglobin A1c Lactic Acid 1.3 Calcium 8.2 L Phosphorus Magnesium Iron TIBC % Saturation Ferritin Total Bilirubin AST ALT Alkaline Phosphatase Total Creatine Kinase Total Protein Albumin Globulin Albumin/Globulin Ratio TSH 3rd Generation Urine Color Yellow Urine Clarity Slighty-cloudy Urine pH 6.0 Ur Specific Orange 1.021 Urine Protein >=500 Urine Glucose (UA) >=500 Urine Ketones 20 Urine Blood Small Urine Nitrate Negative Urine Bilirubin Negative Urine Urobilinogen 0.2-1.0 Ur Leukocyte Esterase Trace Urine RBC (Auto) 5 H Urine Microscopic WBC 6 H Ur Squamous Epith Cells < 1 Urine Bacteria Rare B-Hydroxybutyrate 11/15/17 11/15/17 18:30 21:26 WBC RBC Hgb Hct MCV MCH MCHC RDW Plt Count MPV Neut % (Auto) Lymph % (Auto) [place] % (Auto) Eos % (Auto) Baso % (Auto) Neut # (Auto) Lymph # (Auto) [place] # (Auto) Eos # (Auto) Baso # (Auto) Sodium Potassium Chloride Carbon Dioxide Anion Gap BUN Creatinine Est GFR ( Amer) Est GFR (Non-Af Amer) POC Glucose (mg/dL) 484 H* Random Glucose Hemoglobin A1c Lactic Acid Calcium Phosphorus Magnesium Iron TIBC % Saturation Ferritin Total Bilirubin AST ALT Alkaline Phosphatase Total Creatine Kinase 90 Total Protein Albumin Globulin Albumin/Globulin Ratio TSH 3rd Generation Urine Color Urine Clarity Urine pH Ur Specific Orange Urine Protein Urine Glucose (UA) Urine Ketones Urine Blood Urine Nitrate Urine Bilirubin Urine Urobilinogen Ur Leukocyte Esterase Urine RBC (Auto) Urine Microscopic WBC Ur Squamous Epith Cells Urine Bacteria B-Hydroxybutyrate Assessment & Plan - Assessment and Plan (Free Text) Assessment: CT head is normal. EEG: normal. A/p: 27 yr old woman with most likely nonepileptic events, secondary to stress and multiple medical problems. 1. VEEG if events continue. THank you for consulting neurology Dr. Kent
[2017-11-15] MEDS ORDERED: Insulin Detemir 100 Units/ml Inj SC SCH ×2 (22:00)
--- NOTE | 2017-11-15 23:45 | CP.PCM.PN ---
Subjective - Date & Time of Evaluation Date of Evaluation: 11/15/17 Time of Evaluation: 15:15 Objective - Vital Signs/Intake and Output Vital Signs (last 24 hours): Temp Pulse Resp BP Pulse Ox 99.1 F 100 H 20 126/79 100 11/15/17 21:00 11/15/17 21:00 11/15/17 21:00 11/15/17 21:00 11/15/17 21:00 Intake and Output: 11/15/17 11/16/17 18:59 06:59 Intake Total 1999 Balance 1999 - Medications Medications: Current Medications Acetaminophen (Tylenol 325mg Tab) 650 mg PO Q4 PRN PRN Reason: Fever >100.4 F Last Admin: 11/13/17 13:50 Dose: 650 mg Amlodipine Besylate (Norvasc) 10 mg PO DAILY [facility] Last Admin: 11/14/17 10:08 Dose: Not Given Clonidine HCl (Catapres Tts1 0.1 Mg/24 Hr) 1 patch TD Q7D [facility] Last Admin: 11/14/17 18:42 Dose: 1 patch Ergocalciferol (Drisdol 50,000 Intl Units Cap) 1 cap PO QWK [facility] Ferrous Sulfate (Feosol) 325 mg PO BID [facility] Last Admin: 11/14/17 09:56 Dose: Not Given Folic Acid (Folic Acid) 1 mg PO DAILY [facility] Last Admin: 11/14/17 09:57 Dose: Not Given Hydralazine HCl (Apresoline) 10 mg IV Q6 PRN PRN Reason: SBP>180 or DBP>110 Last Admin: 11/14/17 19:12 Dose: 10 mg Hydromorphone HCl (Dilaudid) 0.3 mg IVP Q8H PRN PRN Reason: Pain, severe (8-10) Last Admin: 11/15/17 22:10 Dose: 0.3 mg Metronidazole (Flagyl 500mg/100ml Ns) 100 mls @ 100 mls/hr IVPB Q8 [facility]; Protocol Last Admin: 11/15/17 17:27 Dose: 100 mls/hr Piperacillin Sod/Tazobactam (Sod 2.25 gm/ Sodium Chloride) 100 mls @ 100 mls/hr IVPB Q8 [facility]; Protocol Last Admin: 11/15/17 16:02 Dose: 100 mls/hr Sodium Chloride (Sodium Chloride 0.9%) 1,000 mls @ 100 mls/hr IV .Q10H [facility] Stop: 11/16/17 14:11 Last Admin: 11/15/17 16:05 Dose: 100 mls/hr Insulin Detemir (Levemir) 24 units SC HS [facility] Last Admin: 11/15/17 22:09 Dose: 24 units Insulin Detemir (Levemir) 12 units SC DAILY [facility] Insulin Human Lispro (Humalog) 0 units SC ACHS [facility] Last Admin: 11/15/17 22:08 Dose: 6 units Labetalol HCl (Trandate) 20 mg IVP Q4H PRN PRN Reason: Systolic Blood Pressure Last Admin: 11/15/17 15:48 Dose: 20 mg Metoclopramide HCl (Reglan) 5 mg IVP Q6H [facility] Last Admin: 11/15/17 22:08 Dose: 5 mg Ondansetron HCl (Zofran Odt) 4 mg PO Q8H PRN PRN Reason: Nausea/Vomiting Last Admin: 11/14/17 04:29 Dose: 4 mg Ondansetron HCl (Zofran Inj) 4 mg IVP Q6 PRN PRN Reason: Nausea/Vomiting Last Admin: 11/15/17 12:57 Dose: 4 mg Pantoprazole Sodium (Protonix Inj) 40 mg IVP DAILY [facility] Last Admin: 11/15/17 08:48 Dose: 40 mg - Labs Labs: 11/15/17 15:15 11/15/17 17:00
[2017-11-16] MEDS: Sodium Chloride 0.9% 1,000 ML IV SCH ×2 (00:50→11:16)
[2017-11-16] MEDS: metroNIDAZOLE 500mg/100ml NS 100 ML IVPB SCH ×3 (01:49→16:02)
[2017-11-16] MEDS: Labetalol 5 mg/ml Inj 20ML IVP PRN (05:18)
[2017-11-16] MEDS: Insulin Lispro (humaLOG) 100 Units/ml Inj SC SCH ×4 (08:30→21:45)
[2017-11-16] MEDS ORDERED: Insulin Detemir 100 Units/ml Inj SC SCH (09:00)
--- NOTE | 2017-11-16 10:06 | PCM.RRT ---
NURSE ORTHOPAEDIC Nurse Assessment - Situation Location: [address] [place] [address] Room Number: [id number] NURSE ORTHOPAEDIC Reason for Call: Change in Mental Status NURSE ORTHOPAEDIC Called By: RN - IV IV Inserted during NURSE ORTHOPAEDIC?: No - Respiratory Oxygen Delivery Method: Room Air Received Nebulizer Treatments: No Was the Patient Ventilated with Bag/Mask 100% O2?: No Secretions Suctioned?: No Was the Patient Intubated?: No Was the Patient Placed on a Ventilator?: No - Medication Medications Administered During NURSE ORTHOPAEDIC: Zofran IV push - Diagnostic Test Ordered EKG: No Chest X-Ray: No CT Scan: No Other Diagnostic Test Ordered: X-ray of Abdomen ordered - Stat Labs Ordered NURSE ORTHOPAEDIC Other Labs Ordered: pro lactate, CK CPR started during NURSE ORTHOPAEDIC?: No - Vital Signs Vital Signs: Rapid Response Vital Sign Blood Pressure 143/60 Pulse Rate 160 Respiratory Rate 17 Oxygen Saturation 99 - Sepsis Screen Part 2 Sepsis Screen Part 2: Glucose elevated, Pt not on steroids - Time NURSE ORTHOPAEDIC Ended Time NURSE ORTHOPAEDIC Ended: 09:30 - Vital Signs at end of NURSE ORTHOPAEDIC Vital Signs at end of NURSE ORTHOPAEDIC: Rapid Response End Vital Sign Blood Pressure 150/82 Pulse Rate 108 Respiratory Rate 16 O2 Sat by Pulse Oximetry 100 - Recommendations NURSE ORTHOPAEDIC Level of Care Recommendations: Remain in current setting
--- NOTE | 2017-11-16 10:10 | PCM.RRT ---
<Dayan Cortez - Last Filed: 11/16/17 10:28> SERVICE OPERATIONS MANAGER Nurse Assessment - Situation SERVICE OPERATIONS MANAGER Responder Arrival Time: 09:51 Location: [address] [place] [address] Room Number: [id number] SERVICE OPERATIONS MANAGER Reason for Call: Change in Mental Status SERVICE OPERATIONS MANAGER Called By: RN - IV IV Inserted during SERVICE OPERATIONS MANAGER?: No - Respiratory Oxygen Delivery Method: Room Air Received Nebulizer Treatments: No Was the Patient Ventilated with Bag/Mask 100% O2?: No Secretions Suctioned?: No Was the Patient Intubated?: No Was the Patient Placed on a Ventilator?: No - Medication Medications Administered During SERVICE OPERATIONS MANAGER: Ativan 1mg - Diagnostic Test Ordered EKG: No Chest X-Ray: No CT Scan: No CPR started during SERVICE OPERATIONS MANAGER?: No - Vital Signs Vital Signs: Rapid Response Vital Sign Blood Pressure 124/73 Pulse Rate 108 Respiratory Rate 16 Oxygen Saturation 100% Temp: 98.4F - [place] Coma Scale Coma Scale Eye Opening: No response - Time SERVICE OPERATIONS MANAGER Ended Time SERVICE OPERATIONS MANAGER Ended: 10:11 - Vital Signs at end of SERVICE OPERATIONS MANAGER Vital Signs at end of SERVICE OPERATIONS MANAGER: Rapid Response End Vital Sign Blood Pressure 138/80 Pulse Rate 103 Respiratory Rate 16 O2 Sat by Pulse Oximetry 100% Temp 98.7F - Recommendations SERVICE OPERATIONS MANAGER Level of Care Recommendations: Transfer to ICU Notifications: Attending Physician (video EEG ordered) <Mauricio Mcmahon - Last Filed: 11/16/17 19:04> SERVICE OPERATIONS MANAGER Nurse Assessment - Vital Signs Vital Signs: Rapid Response Vital Sign Blood Pressure 128/73 Pulse Rate 108 Respiratory Rate 17 Oxygen Saturation 100 - Vital Signs at end of SERVICE OPERATIONS MANAGER Vital Signs at end of SERVICE OPERATIONS MANAGER: Rapid Response End Vital Sign Blood Pressure 138/80 Pulse Rate 103 Respiratory Rate 16 O2 Sat by Pulse Oximetry 100 Attending/Attestation - Attestation I have personally seen and examined this patient.: Yes I have fully participated in the care of the patient.: Yes I have reviewed all pertinent clinical information, including history, physical exam and plan: Yes
[2017-11-16 11:58] LABS: PROLACTIN 164.2 ng/mL (3.0-18.9)
[2017-11-16 12:15] LABS: BASO # 0.1 K/uL (0.0-0.2); BASO % 0.4 % (0.0-2.0); EOS % 0.3 % (0.0-4.0); HEMOGLOBIN 8.4 g/dL (12.0-16.0); LYMPH # 1.7 K/uL (1.0-4.3); LYMPH % 11.6 % (20.0-40.0); MEAN CELL VOLUME 86.1 fl (81.0-99.0); MEAN CORPUSCULAR HEMOGLOBIN 28.4 pg (27.0-31.0); MEAN PLATELET VOLUME 9.4 fl (7.2-11.7); MONO # 0.8 K/uL (0.0-0.8); MONO % 5.5 % (0.0-10.0); NEUT # 12.2 K/uL (1.8-7.0); NEUT % 82.2 % (50.0-75.0); NRBC % 0.1 % (0.0-0.0); RBC 2.96 Mil/uL (3.80-5.20); RED CELL DISTRIBUTION WIDTH 13.3 % (11.5-14.5); WHITE BLOOD COUNT 14.8 K/uL (4.8-10.8)
[2017-11-16 12:24] LABS: ALB/GLOB RATIO 0.9 (1.0-2.1); ALBUMIN 2.5 g/dL (3.5-5.0); CALCIUM 8.2 mg/dL (8.4-10.2)
[2017-11-16] MEDS ORDERED: KCL 40MEQ/NS 1L 1,000 ML IV SCH (12:39)
[2017-11-16] MEDS ORDERED: EPOETIN ALFA 10,000 UNIT/ML ML SC ONE (12:40)
--- NOTE | 2017-11-16 13:02 | CP.PCM.PN ---
Subjective - Date & Time of Evaluation Date of Evaluation: 11/16/17 Time of Evaluation: 13:00 - Subjective Subjective: Patient seen after yet another DIAGNOSTIC TECHNOLOGIST for change in mental status today; subsequently admitted to faking seizure activity; abd pain and nausea improved; vomited earlier this morning; Objective - Vital Signs/Intake and Output Vital Signs (last 24 hours): Temp Pulse Resp BP Pulse Ox 98.8 F 105 H 18 134/85 100 11/16/17 08:29 11/16/17 08:29 11/16/17 08:29 11/16/17 08:29 11/16/17 08:29 Intake and Output: 11/16/17 11/16/17 06:59 18:59 Intake Total 1999 Balance 1999 - Medications Medications: Current Medications Acetaminophen (Tylenol 325mg Tab) 650 mg PO Q4 PRN PRN Reason: Fever >100.4 F Last Admin: 11/13/17 13:50 Dose: 650 mg Amlodipine Besylate (Norvasc) 10 mg PO DAILY [facility] Last Admin: 11/14/17 10:08 Dose: Not Given Clonidine HCl (Catapres Tts1 0.1 Mg/24 Hr) 1 patch TD Q7D [facility] Last Admin: 11/14/17 18:42 Dose: 1 patch Ergocalciferol (Drisdol 50,000 Intl Units Cap) 1 cap PO QWK [facility] Ferrous Sulfate (Feosol) 325 mg PO BID [facility] Last Admin: 11/14/17 09:56 Dose: Not Given Folic Acid (Folic Acid) 1 mg PO DAILY [facility] Last Admin: 11/14/17 09:57 Dose: Not Given Hydralazine HCl (Apresoline) 10 mg IV Q6 PRN PRN Reason: SBP>180 or DBP>110 Last Admin: 11/14/17 19:12 Dose: 10 mg Metronidazole (Flagyl 500mg/100ml Ns) 100 mls @ 100 mls/hr IVPB Q8 [facility]; Protocol Last Admin: 11/16/17 11:05 Dose: 100 mls/hr Piperacillin Sod/Tazobactam (Sod 2.25 gm/ Sodium Chloride) 100 mls @ 100 mls/hr IVPB Q8 [facility]; Protocol Last Admin: 11/16/17 11:09 Dose: 100 mls/hr Oral Electrolytes (Kcl 40meq/ 0.9% 1l) 1,000 mls @ 100 mls/hr IV .Q10H [facility] Stop: 11/16/17 14:11 Insulin Detemir (Levemir) 24 units SC HS [facility] Last Admin: 11/15/17 22:09 Dose: 24 units Insulin Detemir (Levemir) 12 units SC DAILY [facility] Insulin Human Lispro (Humalog) 0 units SC ACHS [facility] Last Admin: 11/16/17 11:37 Dose: Not Given Labetalol HCl (Trandate) 20 mg IVP Q4H PRN PRN Reason: Systolic Blood Pressure Last Admin: 11/16/17 05:18 Dose: 20 mg Metoclopramide HCl (Reglan) 5 mg IVP Q6H [facility] Last Admin: 11/16/17 11:08 Dose: 5 mg Ondansetron HCl (Zofran Odt) 4 mg PO Q8H PRN PRN Reason: Nausea/Vomiting Last Admin: 11/14/17 04:29 Dose: 4 mg Ondansetron HCl (Zofran Inj) 4 mg IVP Q6 PRN PRN Reason: Nausea/Vomiting Last Admin: 11/15/17 12:57 Dose: 4 mg Pantoprazole Sodium (Protonix Inj) 40 mg IVP DAILY [facility] Last Admin: 11/16/17 11:07 Dose: 40 mg - Labs Labs: 11/16/17 11:55 11/16/17 11:55 - Constitutional Appears: Non-toxic, No Acute Distress - ENT Exam ENT Exam: Mucous Membranes Moist - Respiratory Exam Respiratory Exam: Clear to Ausculation Bilateral. absent: Respiratory Distress - Cardiovascular Exam Cardiovascular Exam: RRR, +S1, +S2 - GI/Abdominal Exam GI & Abdominal Exam: Soft, Tenderness. absent: Distended - Extremities Exam Additional comments: no leg edema; - Neurological Exam Neurological Exam: Alert, Awake - Psychiatric Exam Psychiatric exam: absent: Agitated Additional comments: melancholic - Skin Skin Exam: Warm. absent: Cyanosis Assessment and Plan (1) SIRS (systemic inflammatory response syndrome) Assessment & Plan: Leukocytosis improving, possible colitis on imaging, on flagyl (no renal dose adjustment needed) and zosyn (dosed for CrCl < 20 ml/min); f/u blood cultures from yesterday; Status: Acute (2) NICKI (acute kidney injury) Assessment & Plan: NICKI on CKD IV/V; pre-renal etiology, improved but not yet back to baseline creatinine of low 3's; -continue IVF w/ NS at 100 cc/hr (adding 40 meq KCl/L for mild hypokalemia); -avoid nephrotoxic agents; -need to remove PICC line as soon as feasible (not ideal for advanced CKD patient); Status: Chronic (3) Gastroparesis Assessment & Plan: With recurrent flare but also concern for self-induced vomiting, non-compliance with NPO order and narcotic seeking as well as attention seeking behavior; IV morphine switched to low dose IV dilaudid yesterday due to concern for accumulation of morphine metabolites in renal failure; has not received any pain meds since early last night so will d/c dilaudid altogether; needs close endocrine f/u; agree with neuro recommendation for psych consult for facitious disorder type of behavior although it is doubtful that there will be any easy solution; Status: Acute (4) Anemia in CKD (chronic kidney disease) Assessment & Plan: Hgb dropping, will give dose of EPO now that BP well controlled; will give IV iron if blood cultures negative; Status: Chronic (5) Hypertensive CKD (chronic kidney disease) Assessment & Plan: BP controlled on clonidine patch, continue; holding all PO meds; Status: Chronic
--- NOTE | 2017-11-16 19:25 | PN ---
DATE: 11/16/2017 ENDO FOLLOWUP NOTE LOCATION: In room 414. SUBJECTIVE: This is a 27-year-old female with recent uncontrolled type 1 insulin-dependent diabetes, presenting here with acute exacerbation of gastroparesis with supervening marked renal insufficiency and advanced azotemia, and is now being followed closely for metabolic management. She remains n.p.o. at this time as noted. Her glycemic profile have improved overnight with glucose levels ranging from 104 to 248 mg/dL. It was 484 at bedtime last night. she has been kept n.p.o. at this time and did except low normal glycemic profile with little oral intake and also continued physical stressors as noted. LABORATORY DATA: Her chemistry showed a BUN of 32, sodium 140, potassium 3.2, chloride 110, CO2 of 22, glucose 89, and creatinine 4.6. ASSESSMENT AND PLAN: So at this time, we will modify once again her basal insulin and lower the Levemir to 8 units every morning at 10 o' clock daily with Levemir given as 16 units subcutaneously at bedtime daily as given. We will titrate incrementally as indicated to optimize metabolic control. We will follow and advise accordingly. Yamileth Charles MD
[2017-11-16] MEDS: Insulin Detemir 100 Units/ml Inj SC SCH (21:47)
--- NOTE | 2017-11-16 22:21 | PN ---
DATE: 11/16/2017 SUBJECTIVE: This is a 27-year-old woman with gastroparesis and multiple episodes that are generalized tonic clonic in nature; however, that had prolonged duration and did not have loss of consciousness during or after the event. She has had a total of approximately ten of these events, in one of which during she has thrown herself off the bed. Today, the patient was seen, and we are planning to transfer her to ICU for video EEG. However after discussion with the patient, she stated that she was fully aware, that she had consciousness during these events. She has no history of epilepsy. Therefore, video EEG was canceled. Of note, review of systems, no diarrhea, nausea, vomiting and headache. PHYSICAL EXAMINATION: On exam, normal neurological exam. 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 At this point, it is not advisable to treat her epilepsy, these events are related to severe anxiety and depression secondary to her chronic medical illnesses. It will be valuable to have psychiatry on consult and Neurology will follow. Thank you for calling. Renee Kent MD
--- NOTE | 2017-11-16 23:27 | CP.PCM.PN ---
Subjective - Date & Time of Evaluation Date of Evaluation: 11/16/17 Time of Evaluation: 15:30 Objective - Vital Signs/Intake and Output Vital Signs (last 24 hours): Temp Pulse Resp BP Pulse Ox 98.4 F 93 H 20 169/102 H 98 11/16/17 19:41 11/16/17 20:40 11/16/17 19:41 11/16/17 19:41 11/16/17 19:41 Intake and Output: 11/16/17 11/17/17 18:59 06:59 Intake Total 1600 Output Total 500 Balance 1100 - Medications Medications: Current Medications Acetaminophen (Tylenol 325mg Tab) 650 mg PO Q4 PRN PRN Reason: Fever >100.4 F Last Admin: 11/13/17 13:50 Dose: 650 mg Amlodipine Besylate (Norvasc) 10 mg PO DAILY [facility] Last Admin: 11/14/17 10:08 Dose: Not Given Clonidine HCl (Catapres Tts1 0.1 Mg/24 Hr) 1 patch TD Q7D [facility] Last Admin: 11/14/17 18:42 Dose: 1 patch Ergocalciferol (Drisdol 50,000 Intl Units Cap) 1 cap PO QWK [facility] Ferrous Sulfate (Feosol) 325 mg PO BID [facility] Last Admin: 11/14/17 09:56 Dose: Not Given Folic Acid (Folic Acid) 1 mg PO DAILY [facility] Last Admin: 11/14/17 09:57 Dose: Not Given Hydralazine HCl (Apresoline) 10 mg IV Q6 PRN PRN Reason: SBP>180 or DBP>110 Last Admin: 11/14/17 19:12 Dose: 10 mg Metronidazole (Flagyl 500mg/100ml Ns) 100 mls @ 100 mls/hr IVPB Q8 [facility]; Protocol Last Admin: 11/16/17 16:02 Dose: 100 mls/hr Piperacillin Sod/Tazobactam (Sod 2.25 gm/ Sodium Chloride) 100 mls @ 100 mls/hr IVPB Q8 [facility]; Protocol Last Admin: 11/16/17 16:02 Dose: 100 mls/hr Insulin Detemir (Levemir) 8 units SC DAILY [facility] Insulin Detemir (Levemir) 16 units SC HS [facility] Last Admin: 11/16/17 21:47 Dose: 16 units Insulin Human Lispro (Humalog) 0 units SC ACHS [facility] Last Admin: 11/16/17 21:45 Dose: 5 units Labetalol HCl (Trandate) 20 mg IVP Q4H PRN PRN Reason: Systolic Blood Pressure Last Admin: 11/16/17 05:18 Dose: 20 mg Metoclopramide HCl (Reglan) 5 mg IVP Q6H [facility] Last Admin: 11/16/17 21:50 Dose: 5 mg Ondansetron HCl (Zofran Odt) 4 mg PO Q8H PRN PRN Reason: Nausea/Vomiting Last Admin: 11/14/17 04:29 Dose: 4 mg Ondansetron HCl (Zofran Inj) 4 mg IVP Q6 PRN PRN Reason: Nausea/Vomiting Last Admin: 11/15/17 12:57 Dose: 4 mg Pantoprazole Sodium (Protonix Inj) 40 mg IVP DAILY [facility] Last Admin: 11/16/17 11:07 Dose: 40 mg - Labs Labs: 11/16/17 11:55 11/16/17 11:55
[2017-11-17] MEDS: metroNIDAZOLE 500mg/100ml NS 100 ML IVPB SCH ×3 (01:29→16:38)
[2017-11-17] MEDS: Insulin Lispro (humaLOG) 100 Units/ml Inj SC SCH ×4 (08:03→21:50)
[2017-11-17 08:24] LABS: BASO # 0.1 K/uL (0.0-0.2); BASO % 0.6 % (0.0-2.0); EOS # 0.2 K/uL (0.0-0.7); EOS % 1.6 % (0.0-4.0); HEMOGLOBIN 8.7 g/dL (12.0-16.0); LYMPH # 2.4 K/uL (1.0-4.3); LYMPH % 21.9 % (20.0-40.0); MEAN CELL VOLUME 86.9 fl (81.0-99.0); MEAN CORPUSCULAR HEMOGLOBIN 29.5 pg (27.0-31.0); MEAN CORPUSCULAR HGB CONC 33.9 g/dL (33.0-37.0); MEAN PLATELET VOLUME 9.3 fl (7.2-11.7); MONO # 0.6 K/uL (0.0-0.8); MONO % 5.8 % (0.0-10.0); NEUT # 7.7 K/uL (1.8-7.0); NEUT % 70.1 % (50.0-75.0); RBC 2.95 Mil/uL (3.80-5.20); RED CELL DISTRIBUTION WIDTH 13.3 % (11.5-14.5); WHITE BLOOD COUNT 10.9 K/uL (4.8-10.8)
[2017-11-17 08:43] LABS: ALB/GLOB RATIO 0.8 (1.0-2.1); ALBUMIN 2.3 g/dL (3.5-5.0)
[2017-11-17] MEDS: Insulin Detemir 100 Units/ml Inj SC SCH ×2 (11:00→21:41)
--- NOTE | 2017-11-17 14:27 | CP.PCM.CON ---
History of Present Illness - History of Present Illness History of Present Illness: consult requested for pseudoseizures and anxiety Pt. is a 27 year old female with PMH of DM I on insulin pump at home, gastroparesis and CKD and seizure disorder and pseudoseizures who was admitted few days ago with c/o nausea and vomiting and possible seizure. pt reportedly had a seizure yesterday, JOURNEYMAN [employer]MAN called and during the seizure pt requested ativan, stated she is inducing the seizure as she is feeling anxious and needs the ativan on interviewing pt is not cooperative with the undersigned, poor eye contact, stated that she does induce seizures at times voluntary to relieve her anxiety, but then she is unable to control the seizures , reported feling depressed because of how limited she is with her mental illness, poor appetite, interrupted sleep, panic attacks with difficulty breathing denied any previous suicidal attempts denied suicidal or homicidal ideation alert awake oriented to person and place Past Patient History - Past Medical History & Family History Past Medical History?: Yes - Past Social History Alcohol: None Drugs: Denies - CARDIAC Hx Hypertension: Yes - PULMONARY Hx Respiratory Disorders: No - NEUROLOGICAL Hx Neurological Disorder: No - HEENT Hx HEENT Problems: No - RENAL Hx Chronic Kidney Disease: Yes - ENDOCRINE/METABOLIC Hx Endocrine Disorders: Yes - HEMATOLOGICAL/ONCOLOGICAL Hx Anemia: Yes Hx Human Immunodeficiency Virus (HIV): No - INTEGUMENTARY Hx Dermatological Problems: No - MUSCULOSKELETAL/RHEUMATOLOGICAL Hx Musculoskeletal Disorders: No Hx Falls: No - GASTROINTESTINAL Hx Gastrointestinal Disorders: Yes Other/Comment: Gastroparesis - GENITOURINARY/GYNECOLOGICAL Hx Genitourinary Disorders: No - PSYCHIATRIC Hx Psychophysiologic Disorder: No Hx Substance Use: No - SURGICAL HISTORY Hx Surgeries: No - ANESTHESIA Hx Anesthesia: No Hx Anesthesia Reactions: No Meds Allergies/Adverse Reactions: Allergies Allergy/AdvReac Type Severity Reaction Status Date / Time No Known Allergies Allergy Verified 11/04/17 10:12 - Medications Medications: Current Medications Acetaminophen (Tylenol 325mg Tab) 650 mg PO Q4 PRN PRN Reason: Fever >100.4 F Last Admin: 11/13/17 13:50 Dose: 650 mg Acetaminophen (Tylenol 325mg Tab) 650 mg PO Q4 PRN PRN Reason: Pain, Mild (1-3) Last Admin: 11/17/17 11:04 Dose: 650 mg Amlodipine Besylate (Norvasc) 10 mg PO DAILY [facility] Last Admin: 11/14/17 10:08 Dose: Not Given Clonidine HCl (Catapres Tts1 0.1 Mg/24 Hr) 1 patch TD Q7D [facility] Last Admin: 11/14/17 18:42 Dose: 1 patch Ergocalciferol (Drisdol 50,000 Intl Units Cap) 1 cap PO QWK [facility] Ferrous Sulfate (Feosol) 325 mg PO BID [facility] Last Admin: 11/14/17 09:56 Dose: Not Given Folic Acid (Folic Acid) 1 mg PO DAILY [facility] Last Admin: 11/14/17 09:57 Dose: Not Given Hydralazine HCl (Apresoline) 10 mg IV Q6 PRN PRN Reason: SBP>180 or DBP>110 Last Admin: 11/17/17 04:40 Dose: 10 mg Metronidazole (Flagyl 500mg/100ml Ns) 100 mls @ 100 mls/hr IVPB Q8 [facility]; Protocol Last Admin: 11/17/17 10:03 Dose: 100 mls/hr Piperacillin Sod/Tazobactam (Sod 2.25 gm/ Sodium Chloride) 100 mls @ 100 mls/hr IVPB Q8 [facility]; Protocol Last Admin: 11/17/17 10:02 Dose: 100 mls/hr Iron Sucrose 100 mg/ Sodium (Chloride) 105 mls @ 105 mls/hr IVPB DAILY [facility] Last Admin: 11/17/17 10:05 Dose: 105 mls/hr Insulin Detemir (Levemir) 8 units SC DAILY [facility] Last Admin: 11/17/17 11:00 Dose: Not Given Insulin Detemir (Levemir) 16 units SC HS [facility] Last Admin: 11/16/17 21:47 Dose: 16 units Insulin Human Lispro (Humalog) 0 units SC ACHS [facility] Last Admin: 11/17/17 08:03 Dose: Not Given Labetalol HCl (Trandate) 20 mg IVP Q4H PRN PRN Reason: Systolic Blood Pressure Last Admin: 11/16/17 05:18 Dose: 20 mg Metoclopramide HCl (Reglan) 5 mg IVP Q6H [facility] Last Admin: 11/17/17 10:08 Dose: 5 mg Ondansetron HCl (Zofran Odt) 4 mg PO Q8H PRN PRN Reason: Nausea/Vomiting Last Admin: 11/14/17 04:29 Dose: 4 mg Ondansetron HCl (Zofran Inj) 4 mg IVP Q6 PRN PRN Reason: Nausea/Vomiting Last Admin: 11/15/17 12:57 Dose: 4 mg Pantoprazole Sodium (Protonix Inj) 40 mg IVP DAILY [facility] Last Admin: 11/17/17 10:07 Dose: 40 mg Results - Vital Signs Recent Vital Signs: Last Vital Signs Temp 98.8 F 11/17/17 12:20 Pulse 92 H 11/17/17 12:20 Resp 18 11/17/17 12:20 BP 142/82 11/17/17 12:20 Pulse Ox 99 11/17/17 12:20 - Labs Result Diagrams: 11/17/17 08:22 11/17/17 08:20 Labs: Laboratory Results - last 24 hr 11/15/17 11/16/17 11/16/17 10:35 11:35 12:17 WBC RBC Hgb Hct MCV MCH MCHC RDW Plt Count MPV Neut % (Auto) Lymph % (Auto) [place] % (Auto) Eos % (Auto) Baso % (Auto) Neut # (Auto) Lymph # (Auto) [place] # (Auto) Eos # (Auto) Baso # (Auto) Sodium Potassium Chloride Carbon Dioxide Anion Gap BUN Creatinine Est GFR ( Amer) Est GFR (Non-Af Amer) POC Glucose (mg/dL) 96 118 H Random Glucose Calcium Phosphorus Magnesium Total Bilirubin AST ALT Alkaline Phosphatase Total Protein Albumin Globulin Albumin/Globulin Ratio [facility] 3rd Generation C. difficile Ag & Toxin Negative 11/16/17 11/16/17 11/17/17 16:00 21:22 04:20 WBC RBC Hgb Hct MCV MCH MCHC RDW Plt Count MPV Neut % (Auto) Lymph % (Auto) [place] % (Auto) Eos % (Auto) Baso % (Auto) Neut # (Auto) Lymph # (Auto) [place] # (Auto) Eos # (Auto) Baso # (Auto) Sodium Potassium Chloride Carbon Dioxide Anion Gap BUN Creatinine Est GFR ( Amer) Est GFR (Non-Af Amer) POC Glucose (mg/dL) 246 H 396 H Random Glucose Calcium Phosphorus Magnesium Total Bilirubin AST ALT Alkaline Phosphatase Total Protein Albumin Globulin Albumin/Globulin Ratio [facility] 3rd Generation 1.0 C. difficile Ag & Toxin 11/17/17 11/17/17 11/17/17 05:25 06:20 08:20 WBC RBC Hgb Hct MCV MCH MCHC RDW Plt Count MPV Neut % (Auto) Lymph % (Auto) [place] % (Auto) Eos % (Auto) Baso % (Auto) Neut # (Auto) Lymph # (Auto) [place] # (Auto) Eos # (Auto) Baso # (Auto) Sodium 139 Potassium 3.3 L Chloride 110 H Carbon Dioxide 22 Anion Gap 10 BUN 21 H Creatinine 3.8 H Est GFR ( Amer) 17 Est GFR (Non-Af Amer) 14 POC Glucose (mg/dL) 61 L 77 Random Glucose 70 Calcium 8.0 L Phosphorus 2.7 Magnesium 2.0 Total Bilirubin 0.2 AST 39 H D ALT 17 Alkaline Phosphatase 93 Total Protein 5.2 L Albumin 2.3 L Globulin 2.9 Albumin/Globulin Ratio 0.8 L [facility] 3rd Generation C. difficile Ag & Toxin 11/17/17 11/17/17 08:22 11:00 WBC 10.9 H RBC 2.95 L Hgb 8.7 L Hct 25.7 L MCV 86.9 MCH 29.5 MCHC 33.9 RDW 13.3 Plt Count 350 MPV 9.3 Neut % (Auto) 70.1 Lymph % (Auto) 21.9 [place] % (Auto) 5.8 Eos % (Auto) 1.6 Baso % (Auto) 0.6 Neut # (Auto) 7.7 H Lymph # (Auto) 2.4 [place] # (Auto) 0.6 Eos # (Auto) 0.2 Baso # (Auto) 0.1 Sodium Potassium Chloride Carbon Dioxide Anion Gap BUN Creatinine Est GFR ( Amer) Est GFR (Non-Af Amer) POC Glucose (mg/dL) 79 Random Glucose Calcium Phosphorus Magnesium Total Bilirubin AST ALT Alkaline Phosphatase Total Protein Albumin Globulin Albumin/Globulin Ratio [facility] 3rd Generation C. 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
[2017-11-17] MEDS ORDERED: Potassium Chloride 20 mEq/15 ml LIQ UD PO ONE (16:43)
[2017-11-17] MEDS: Labetalol 5 mg/ml Inj 20ML IVP PRN (17:05)
[2017-11-17] MEDS ORDERED: DAPTOmycin 500 mg Inj (Cubicin) IV SCH (17:45)
--- NOTE | 2017-11-17 18:47 | CP.PCM.PN ---
Subjective - Date & Time of Evaluation Date of Evaluation: 11/17/17 Time of Evaluation: 18:30 - Subjective Subjective: Patient started on liquid diet, tolerating well; no nausea/vomiting but reporting very frequent loose stool; not ambulating much; Objective - Vital Signs/Intake and Output Vital Signs (last 24 hours): Temp Pulse Resp BP Pulse Ox 98.5 F 87 18 190/110 H 98 11/17/17 16:27 11/17/17 16:27 11/17/17 16:27 11/17/17 17:15 11/17/17 16:27 Intake and Output: 11/17/17 11/17/17 06:59 18:59 Intake Total 560 Output Total 300 Balance 260 - Medications Medications: Current Medications Acetaminophen (Tylenol 325mg Tab) 650 mg PO Q4 PRN PRN Reason: Fever >100.4 F Last Admin: 11/13/17 13:50 Dose: 650 mg Acetaminophen (Tylenol 325mg Tab) 650 mg PO Q4 PRN PRN Reason: Pain, Mild (1-3) Last Admin: 11/17/17 11:04 Dose: 650 mg Amlodipine Besylate (Norvasc) 10 mg PO DAILY [facility] Last Admin: 11/14/17 10:08 Dose: Not Given Clonidine HCl (Catapres Tts1 0.1 Mg/24 Hr) 1 patch TD Q7D [facility] Last Admin: 11/14/17 18:42 Dose: 1 patch Ergocalciferol (Drisdol 50,000 Intl Units Cap) 1 cap PO QWK [facility] Ferrous Sulfate (Feosol) 325 mg PO BID [facility] Last Admin: 11/14/17 09:56 Dose: Not Given Folic Acid (Folic Acid) 1 mg PO DAILY [facility] Last Admin: 11/14/17 09:57 Dose: Not Given Hydralazine HCl (Apresoline) 10 mg IV Q6 PRN PRN Reason: SBP>180 or DBP>110 Last Admin: 11/17/17 04:40 Dose: 10 mg Piperacillin Sod/Tazobactam (Sod 2.25 gm/ Sodium Chloride) 100 mls @ 100 mls/hr IVPB Q8 [facility]; Protocol Last Admin: 11/17/17 16:38 Dose: 100 mls/hr Iron Sucrose 100 mg/ Sodium (Chloride) 105 mls @ 105 mls/hr IVPB DAILY [facility] Last Admin: 11/17/17 10:05 Dose: 105 mls/hr Daptomycin 410 mg/ Sodium (Chloride) 100 mls @ 100 mls/hr IV DAILY [facility] Stop: 11/23/17 09:01 Potassium Chloride 40 meq/ (Sodium Chloride) 1,020 mls @ 100 mls/hr IV .[id number] [facility] Stop: 11/18/17 18:45 Insulin Detemir (Levemir) 8 units SC DAILY [facility] Last Admin: 11/17/17 11:00 Dose: Not Given Insulin Detemir (Levemir) 16 units SC HS [facility] Last Admin: 11/16/17 21:47 Dose: 16 units Insulin Human Lispro (Humalog) 0 units SC ACHS [facility] Last Admin: 11/17/17 17:43 Dose: Not Given Labetalol HCl (Trandate) 20 mg IVP Q4H PRN PRN Reason: Systolic Blood Pressure Last Admin: 11/17/17 17:05 Dose: 20 mg Metoclopramide HCl (Reglan) 5 mg IVP Q6H [facility] Last Admin: 11/17/17 15:13 Dose: 5 mg Ondansetron HCl (Zofran Odt) 4 mg PO Q8H PRN PRN Reason: Nausea/Vomiting Last Admin: 11/14/17 04:29 Dose: 4 mg Ondansetron HCl (Zofran Inj) 4 mg IVP Q6 PRN PRN Reason: Nausea/Vomiting Last Admin: 11/15/17 12:57 Dose: 4 mg Pantoprazole Sodium (Protonix Inj) 40 mg IVP DAILY [facility] Last Admin: 11/17/17 10:07 Dose: 40 mg Sertraline HCl (Zoloft) 25 mg PO DAILY [facility] - Labs Labs: 11/17/17 08:22 11/17/17 08:20 - Constitutional Appears: Non-toxic, No Acute Distress - Eye Exam Eye Exam: Normal appearance - Respiratory Exam Respiratory Exam: Clear to Ausculation Bilateral. absent: Respiratory Distress - Cardiovascular Exam Cardiovascular Exam: RRR, +S1, +S2. absent: Gallop, Rubs - Extremities Exam Additional comments: no leg edema; - Neurological Exam Neurological Exam: Alert, Awake - Psychiatric Exam Psychiatric exam: absent: Agitated Additional comments: melancholic - Skin Skin Exam: Warm. absent: Cyanosis Assessment and Plan (1) SIRS (systemic inflammatory response syndrome) Assessment & Plan: Now with gram pos cocci from PICC blood culture; started on dapto, still on zosyn; improving renal function but should continue to dose antibiotics for CrCl < 20 ml/min; Status: Acute (2) NICKI (acute kidney injury) Assessment & Plan: NICKI on CKD IV, pre-renal etiology, improving with resolution of vomiting; however, now reportedly with diarrhea; will restart IVF w/ 1/2NS at 100 cc/hr (adding 40 meq KCl/L for mild hypokalemia); -avoid nephrotoxic agents (NSAIDS, etc); Status: Chronic (3) Gastroparesis Assessment & Plan: Symptoms improved currently but patient concerned about inability to stay symptom-free for prolonged periods; counseled on need for adequate blood sugar control; -continuing with standing dose of reglan dosed for renal failure; Status: Acute (4) Anemia in CKD (chronic kidney disease) Assessment & Plan: Hgb below goal, started on EPO and IV iron but will hold further doses of IV iron until it can be determined that patient is not bacteremic; Status: Chronic (5) Hypertensive CKD (chronic kidney disease) Assessment & Plan: BP again elevated today, possibly the effect of starting EPO; on clonidine patc h, will resume amlodipine 10 mg daily; Status: Chronic
[2017-11-17] MEDS: Potassium Chloride 40 MEQ in Sodium Chloride 0.45% 1,000 ML IV SCH (22:30)
[2017-11-18] MEDS ORDERED: DiphenhydrAMINE 50 mg/ml Inj IVP STA ×2 (01:07→12:19)
[2017-11-18] MEDS: Potassium Chloride 40 MEQ in Sodium Chloride 0.45% 1,000 ML IV SCH ×2 (04:58→14:34)
--- NOTE | 2017-11-18 05:00 | PN ---
DATE: 11/18/2017 Room 414 SUBJECTIVE: This is a 27-year-old female with recent uncontrolled type 1 insulin-dependent diabetes, with severe diabetic gastroparesis, now being followed closely for metabolic management. She has ongoing IV hydration, is given potassium supplementation as noted. She is also tolerating a liquid diet at this time, is advanced as noted. Her glycemic levels are fluctuating, but improved and the latest glucose levels overnight have ranged from 29-145 mg/dL. It was 390 at bedtime tonight. Her chemistry showed a BUN of 21, sodium 139, potassium 3.3, chloride 110, CO2 of 22, glucose 70, and creatinine 3.8. So this time, we will continue the low-dose basal and bolus insulin regimen to allow for dose equilibration and keep her on the Levemir given as 8 units at 10:00 a.m. daily and 16 units at bedtime daily as given. Her oral intake improved and we advanced to solid food, and we will start her on a very low dose of Humalog insulin given three times a day as indicated. We will obtain serial chemistries and supplement accordingly as needed. We will follow up. Yamileth Charles MD
[2017-11-18] MEDS: DiphenhydrAMINE 50 mg/ml Inj IVP PRN ×3 (08:16→23:01)
[2017-11-18] MEDS: Insulin Lispro (humaLOG) 100 Units/ml Inj SC SCH ×4 (08:19→21:39)
[2017-11-18] MEDS: Insulin Detemir 100 Units/ml Inj SC SCH ×2 (08:24→21:40)
--- NOTE | 2017-11-18 09:49 | CP.PCM.PN ---
Subjective - Date & Time of Evaluation Date of Evaluation: 11/18/17 Time of Evaluation: 09:48 - Subjective Subjective: ID note- patient seen and examined today with her nurse in the room. patient is feeling slightly better and is able to tolerate some liquid diet. afebrile denies any dysurea (oley is out). as per her nurse no loose BM. Objective - Vital Signs/Intake and Output Vital Signs (last 24 hours): Temp Pulse Resp BP Pulse Ox 98.1 F 3 L 18 176/106 H 100 11/18/17 08:08 11/18/17 08:26 11/18/17 08:08 11/18/17 08:26 11/18/17 08:08 Intake and Output: 11/18/17 11/18/17 06:59 18:59 Intake Total 1000 Output Total 1 Balance 999 - Medications Medications: Current Medications Acetaminophen (Tylenol 325mg Tab) 650 mg PO Q4 PRN PRN Reason: Fever >100.4 F Last Admin: 11/13/17 13:50 Dose: 650 mg Acetaminophen (Tylenol 325mg Tab) 650 mg PO Q4 PRN PRN Reason: Pain, Mild (1-3) Last Admin: 11/17/17 11:04 Dose: 650 mg Amlodipine Besylate (Norvasc) 10 mg PO DAILY [facility] Last Admin: 11/18/17 08:26 Dose: Not Given Clonidine HCl (Catapres Tts1 0.1 Mg/24 Hr) 1 patch TD Q7D [facility] Last Admin: 11/14/17 18:42 Dose: 1 patch Diphenhydramine HCl (Benadryl) 50 mg IVP Q6 PRN PRN Reason: itching Last Admin: 11/18/17 08:16 Dose: 50 mg Ergocalciferol (Drisdol 50,000 Intl Units Cap) 1 cap PO QWK [facility] Ferrous Sulfate (Feosol) 325 mg PO BID [facility] Last Admin: 11/14/17 09:56 Dose: Not Given Folic Acid (Folic Acid) 1 mg PO DAILY [facility] Last Admin: 11/14/17 09:57 Dose: Not Given Hydralazine HCl (Apresoline) 10 mg IV Q6 PRN PRN Reason: SBP>180 or DBP>110 Last Admin: 11/17/17 04:40 Dose: 10 mg Piperacillin Sod/Tazobactam (Sod 2.25 gm/ Sodium Chloride) 100 mls @ 100 mls/hr IVPB Q8 [facility]; Protocol Last Admin: 11/18/17 00:48 Dose: 100 mls/hr Iron Sucrose 100 mg/ Sodium (Chloride) 105 mls @ 105 mls/hr IVPB DAILY [facility] Last Admin: 11/17/17 10:05 Dose: 105 mls/hr Daptomycin 410 mg/ Sodium (Chloride) 100 mls @ 100 mls/hr IV DAILY [facility] Stop: 11/23/17 09:01 Last Admin: 11/18/17 08:31 Dose: 100 mls/hr Potassium Chloride 40 meq/ (Sodium Chloride) 1,020 mls @ 100 mls/hr IV .[id number] [facility] Stop: 11/18/17 18:45 Last Admin: 11/18/17 04:58 Dose: Not Given Insulin Detemir (Levemir) 8 units SC DAILY [facility] Last Admin: 11/18/17 08:24 Dose: 8 units Insulin Detemir (Levemir) 16 units SC [facility] Last Admin: 11/17/17 21:41 Dose: 16 units Insulin Human Lispro (Humalog) 0 units SC ACHS [facility] Last Admin: 11/18/17 08:19 Dose: Not Given Labetalol HCl (Trandate) 20 mg IVP Q4H PRN PRN Reason: Systolic Blood Pressure Last Admin: 11/17/17 17:05 Dose: 20 mg Metoclopramide HCl (Reglan) 5 mg IVP Q6H [facility] Last Admin: 11/18/17 04:57 Dose: 5 mg Ondansetron HCl (Zofran Odt) 4 mg PO Q8H PRN PRN Reason: Nausea/Vomiting Last Admin: 11/14/17 04:29 Dose: 4 mg Ondansetron HCl (Zofran Inj) 4 mg IVP Q6 PRN PRN Reason: Nausea/Vomiting Last Admin: 11/18/17 01:21 Dose: 4 mg Pantoprazole Sodium (Protonix Inj) 40 mg IVP DAILY [facility] Last Admin: 11/18/17 08:30 Dose: 40 mg Sertraline HCl (Zoloft) 25 mg PO DAILY@2200 [facility] - Labs Labs: 11/17/17 08:22 11/17/17 08:20 - Additional Findings Additional findings: - Constitutional Appears: No Acute Distress - Head Exam Head Exam: ATRAUMATIC - Eye Exam Eye Exam: PERRL - ENT Exam ENT Exam: Normal Oropharynx - Neck Exam Neck exam: Positive for: Full Rom - Respiratory Exam Respiratory Exam: Clear to Auscultation Bilateral, NORMAL BREATHING PATTERN - Cardiovascular Exam Cardiovascular Exam: RRR, +S1, +S2 - GI/Abdominal Exam GI & Abdominal Exam: Normal Bowel Sounds, Soft Additional comments: ND, NT - Extremities Exam Extremities exam: Positive for: normal inspection - Neurological Exam Neurological exam: Alert, Oriented x 3 Laboratory Results - last 72 hr 11/15/17 11/15/17 11/15/17 06:29 10:35 15:15 WBC 21.8 H RBC 3.36 L Hgb 9.3 L Hct 28.9 L MCV 86.2 MCH 27.8 MCHC 32.3 L RDW 13.4 Plt Count 413 H MPV 9.7 Neut % (Auto) 83.2 H Lymph % (Auto) 10.3 L [place] % (Auto) 6.1 Eos % (Auto) 0.0 Baso % (Auto) 0.4 Neut # (Auto) 18.1 H Lymph # (Auto) 2.2 [place] # (Auto) 1.3 H Eos # (Auto) 0.0 Baso # (Auto) 0.1 Sodium Potassium Chloride Carbon Dioxide Anion Gap BUN Creatinine Est GFR ( Amer) Est GFR (Non-Af Amer) POC Glucose (mg/dL) Random Glucose Hemoglobin A1c 8.3 H Lactic Acid Calcium Phosphorus Magnesium Total Bilirubin AST ALT Alkaline Phosphatase Total Creatine Kinase Total Protein Albumin Globulin Albumin/Globulin Ratio 25-OH Vitamin D Total FSH 3rd Generation Prolactin Urine Color Urine Clarity Urine pH Ur Specific [place] Urine Protein Urine Glucose (UA) Urine Ketones Urine Blood Urine Nitrate Urine Bilirubin Urine Urobilinogen Ur Leukocyte Esterase Urine RBC (Auto) Urine Microscopic WBC Ur Squamous Epith Cells Urine Bacteria B-Hydroxybutyrate C. difficile Ag & Toxin Negative 11/15/17 11/15/17 11/15/17 15:30 16:20 17:00 WBC RBC Hgb Hct MCV MCH MCHC RDW Plt Count MPV Neut % (Auto) Lymph % (Auto) [place] % (Auto) Eos % (Auto) Baso % (Auto) Neut # (Auto) Lymph # (Auto) [place] # (Auto) Eos # (Auto) Baso # (Auto) Sodium Potassium Chloride Carbon Dioxide Anion Gap BUN Creatinine Est GFR ( Amer) Est GFR (Non-Af Amer) POC Glucose (mg/dL) 140 H Random Glucose Hemoglobin A1c Lactic Acid 1.3 Calcium Phosphorus Magnesium Total Bilirubin AST ALT Alkaline Phosphatase Total Creatine Kinase Total Protein Albumin Globulin Albumin/Globulin Ratio 25-OH Vitamin D Total FSH 3rd Generation Prolactin Urine Color Urine Clarity Urine pH Ur Specific [place] Urine Protein Urine Glucose (UA) Urine Ketones Urine Blood Urine Nitrate Urine Bilirubin Urine Urobilinogen Ur Leukocyte Esterase Urine RBC (Auto) Urine Microscopic WBC Ur Squamous Epith Cells Urine Bacteria B-Hydroxybutyrate 0.29 H C. difficile Ag & Toxin 11/15/17 11/15/17 11/15/17 17:00 17:00 18:11 WBC RBC Hgb Hct MCV MCH MCHC RDW Plt Count MPV Neut % (Auto) Lymph % (Auto) [place] % (Auto) Eos % (Auto) Baso % (Auto) Neut # (Auto) Lymph # (Auto) [place] # (Auto) Eos # (Auto) Baso # (Auto) Sodium 137 Potassium 3.5 L Chloride 103 Carbon Dioxide 19 L Anion Gap 19 BUN 35 H Creatinine 4.8 H Est GFR ( Amer) 13 Est GFR (Non-Af Amer) 11 POC Glucose (mg/dL) 328 H Random Glucose 212 H Hemoglobin A1c Lactic Acid Calcium 8.2 L Phosphorus Magnesium Total Bilirubin AST ALT Alkaline Phosphatase Total Creatine Kinase Total Protein Albumin Globulin Albumin/Globulin Ratio 25-OH Vitamin D Total FSH 3rd Generation Prolactin Urine Color Yellow Urine Clarity Slighty-cloudy Urine pH 6.0 Ur Specific [place] 1.021 Urine Protein >=500 Urine Glucose (UA) >=500 Urine Ketones 20 Urine Blood Small Urine Nitrate Negative Urine Bilirubin Negative Urine Urobilinogen 0.2-1.0 Ur Leukocyte Esterase Trace Urine RBC (Auto) 5 H Urine Microscopic WBC 6 H Ur Squamous Epith Cells < 1 Urine Bacteria Rare B-Hydroxybutyrate C. difficile Ag & Toxin 11/15/17 11/15/17 11/16/17 18:30 21:26 05:31 WBC RBC Hgb Hct MCV MCH MCHC RDW Plt Count MPV Neut % (Auto) Lymph % (Auto) [place] % (Auto) Eos % (Auto) Baso % (Auto) Neut # (Auto) Lymph # (Auto) [place] # (Auto) Eos # (Auto) Baso # (Auto) Sodium Potassium Chloride Carbon Dioxide Anion Gap BUN Creatinine Est GFR ( Amer) Est GFR (Non-Af Amer) POC Glucose (mg/dL) 484 H* 248 H Random Glucose Hemoglobin A1c Lactic Acid Calcium Phosphorus Magnesium Total Bilirubin AST ALT Alkaline Phosphatase Total Creatine Kinase 90 Total Protein Albumin Globulin Albumin/Globulin Ratio 25-OH Vitamin D Total FSH 3rd Generation Prolactin 164.2 H Urine Color Urine Clarity Urine pH Ur Specific [place] Urine Protein Urine Glucose (UA) Urine Ketones Urine Blood Urine Nitrate Urine Bilirubin Urine Urobilinogen Ur Leukocyte Esterase Urine RBC (Auto) Urine Microscopic WBC Ur Squamous Epith Cells Urine Bacteria B-Hydroxybutyrate C. difficile Ag & Toxin 11/16/17 11/16/17 11/16/17 09:51 11:35 11:55 WBC 14.8 H RBC 2.96 L Hgb 8.4 L Hct 25.5 L MCV 86.1 MCH 28.4 MCHC 33.0 RDW 13.3 Plt Count 373 MPV 9.4 Neut % (Auto) 82.2 H Lymph % (Auto) 11.6 L [place] % (Auto) 5.5 Eos % (Auto) 0.3 Baso % (Auto) 0.4 Neut # (Auto) 12.2 H Lymph # (Auto) 1.7 [place] # (Auto) 0.8 Eos # (Auto) 0.0 Baso # (Auto) 0.1 Sodium Potassium Chloride Carbon Dioxide Anion Gap BUN Creatinine Est GFR ( Amer) Est GFR (Non-Af Amer) POC Glucose (mg/dL) 104 96 Random Glucose Hemoglobin A1c Lactic Acid Calcium Phosphorus Magnesium Total Bilirubin AST ALT Alkaline Phosphatase Total Creatine Kinase Total Protein Albumin Globulin Albumin/Globulin Ratio 25-OH Vitamin D Total FSH 3rd Generation Prolactin Urine Color Urine Clarity Urine pH Ur Specific [place] Urine Protein Urine Glucose (UA) Urine Ketones Urine Blood Urine Nitrate Urine Bilirubin Urine Urobilinogen Ur Leukocyte Esterase Urine RBC (Auto) Urine Microscopic WBC Ur Squamous Epith Cells Urine Bacteria B-Hydroxybutyrate C. difficile Ag & Toxin 11/16/17 11/16/17 11/16/17 11:55 12:17 16:00 WBC RBC Hgb Hct MCV MCH MCHC RDW Plt Count MPV Neut % (Auto) Lymph % (Auto) [place] % (Auto) Eos % (Auto) Baso % (Auto) Neut # (Auto) Lymph # (Auto) [place] # (Auto) Eos # (Auto) Baso # (Auto) Sodium 140 Potassium 3.2 L Chloride 110 H Carbon Dioxide 22 Anion Gap 11 BUN 32 H Creatinine 4.6 H Est GFR ( Amer) 14 Est GFR (Non-Af Amer) 11 POC Glucose (mg/dL) 118 H 246 H Random Glucose 89 Hemoglobin A1c Lactic Acid Calcium 8.2 L Phosphorus 3.8 Magnesium 2.3 Total Bilirubin 0.2 AST 21 ALT 16 Alkaline Phosphatase 100 Total Creatine Kinase Total Protein 5.4 L Albumin 2.5 L Globulin 2.9 Albumin/Globulin Ratio 0.9 L 25-OH Vitamin D Total FSH 3rd Generation Prolactin Urine Color Urine Clarity Urine pH Ur Specific [place] Urine Protein Urine Glucose (UA) Urine Ketones Urine Blood Urine Nitrate Urine Bilirubin Urine Urobilinogen Ur Leukocyte Esterase Urine RBC (Auto) Urine Microscopic WBC Ur Squamous Epith Cells Urine Bacteria B-Hydroxybutyrate C. difficile Ag & Toxin 11/16/17 11/17/17 11/17/17 21:22 04:20 05:25 WBC RBC Hgb Hct MCV MCH MCHC RDW Plt Count MPV Neut % (Auto) Lymph % (Auto) [place] % (Auto) Eos % (Auto) Baso % (Auto) Neut # (Auto) Lymph # (Auto) [place] # (Auto) Eos # (Auto) Baso # (Auto) Sodium Potassium Chloride Carbon Dioxide Anion Gap BUN Creatinine Est GFR ( Amer) Est GFR (Non-Af Amer) POC Glucose (mg/dL) 396 H 61 L Random Glucose Hemoglobin A1c Lactic Acid Calcium Phosphorus Magnesium Total Bilirubin AST ALT Alkaline Phosphatase Total Creatine Kinase Total Protein Albumin Globulin Albumin/Globulin Ratio 25-OH Vitamin D Total FSH 3rd Generation 1.0 Prolactin Urine Color Urine Clarity Urine pH Ur Specific [place] Urine Protein Urine Glucose (UA) Urine Ketones Urine Blood Urine Nitrate Urine Bilirubin Urine Urobilinogen Ur Leukocyte Esterase Urine RBC (Auto) Urine Microscopic WBC Ur Squamous Epith Cells Urine Bacteria B-Hydroxybutyrate C. difficile Ag & Toxin 11/17/17 11/17/17 11/17/17 06:20 08:20 08:22 WBC 10.9 H RBC 2.95 L Hgb 8.7 L Hct 25.7 L MCV 86.9 MCH 29.5 MCHC 33.9 RDW 13.3 Plt Count 350 MPV 9.3 Neut % (Auto) 70.1 Lymph % (Auto) 21.9 [place] % (Auto) 5.8 Eos % (Auto) 1.6 Baso % (Auto) 0.6 Neut # (Auto) 7.7 H Lymph # (Auto) 2.4 [place] # (Auto) 0.6 Eos # (Auto) 0.2 Baso # (Auto) 0.1 Sodium 139 Potassium 3.3 L Chloride 110 H Carbon Dioxide 22 Anion Gap 10 BUN 21 H Creatinine 3.8 H Est GFR ( Amer) 17 Est GFR (Non-Af Amer) 14 POC Glucose (mg/dL) 77 Random Glucose 70 Hemoglobin A1c Lactic Acid Calcium 8.0 L Phosphorus 2.7 Magnesium 2.0 Total Bilirubin 0.2 AST 39 H D ALT 17 Alkaline Phosphatase 93 Total Creatine Kinase Total Protein 5.2 L Albumin 2.3 L Globulin 2.9 Albumin/Globulin Ratio 0.8 L 25-OH Vitamin D Total FSH 3rd Generation Prolactin Urine Color Urine Clarity Urine pH Ur Specific [place] Urine Protein Urine Glucose (UA) Urine Ketones Urine Blood Urine Nitrate Urine Bilirubin Urine Urobilinogen Ur Leukocyte Esterase Urine RBC (Auto) Urine Microscopic WBC Ur Squamous Epith Cells Urine Bacteria B-Hydroxybutyrate C. difficile Ag & Toxin 11/17/17 11/17/17 11/17/17 11:00 12:00 17:05 WBC RBC Hgb Hct MCV MCH MCHC RDW Plt Count MPV Neut % (Auto) Lymph % (Auto) [place] % (Auto) Eos % (Auto) Baso % (Auto) Neut # (Auto) Lymph # (Auto) [place] # (Auto) Eos # (Auto) Baso # (Auto) Sodium Potassium Chloride Carbon Dioxide Anion Gap BUN Creatinine Est GFR ( Amer) Est GFR (Non-Af Amer) POC Glucose (mg/dL) 79 145 H Random Glucose Hemoglobin A1c Lactic Acid Calcium Phosphorus Magnesium Total Bilirubin AST ALT Alkaline Phosphatase Total Creatine Kinase Total Protein Albumin Globulin Albumin/Globulin Ratio 25-OH Vitamin D Total < 12.8 L FSH 3rd Generation Prolactin Urine Color Urine Clarity Urine pH Ur Specific [place] Urine Protein Urine Glucose (UA) Urine Ketones Urine Blood Urine Nitrate Urine Bilirubin Urine Urobilinogen Ur Leukocyte Esterase Urine RBC (Auto) Urine Microscopic WBC Ur Squamous Epith Cells Urine Bacteria B-Hydroxybutyrate C. difficile Ag & Toxin 11/17/17 11/18/17 11/18/17 21:38 05:41 10:47 WBC 8.1 RBC 3.21 L Hgb 9.5 L Hct 27.6 L MCV 86.0 MCH 29.5 MCHC 34.3 RDW 13.4 Plt Count 332 MPV 9.4 Neut % (Auto) 68.4 Lymph % (Auto) 22.0 [place] % (Auto) 7.5 Eos % (Auto) 1.3 Baso % (Auto) 0.8 Neut # (Auto) 5.5 Lymph # (Auto) 1.8 [place] # (Auto) 0.6 Eos # (Auto) 0.1 Baso # (Auto) 0.1 Sodium Potassium Chloride Carbon Dioxide Anion Gap BUN Creatinine Est GFR ( Amer) Est GFR (Non-Af Amer) POC Glucose (mg/dL) 390 H 132 H Random Glucose Hemoglobin A1c Lactic Acid Calcium Phosphorus Magnesium Total Bilirubin AST ALT Alkaline Phosphatase Total Creatine Kinase Total Protein Albumin Globulin Albumin/Globulin Ratio 25-OH Vitamin D Total FSH 3rd Generation Prolactin Urine Color Urine Clarity Urine pH Ur Specific [place] Urine Protein Urine Glucose (UA) Urine Ketones Urine Blood Urine Nitrate Urine Bilirubin Urine Urobilinogen Ur Leukocyte Esterase Urine RBC (Auto) Urine Microscopic WBC Ur Squamous Epith Cells Urine Bacteria B-Hydroxybutyrate C. difficile Ag & Toxin 11/18/17 11/18/17 11/18/17 10:47 11:13 11:15 WBC RBC Hgb Hct MCV MCH MCHC RDW Plt Count MPV Neut % (Auto) Lymph % (Auto) [place] % (Auto) Eos % (Auto) Baso % (Auto) Neut # (Auto) Lymph # (Auto) [place] # (Auto) Eos # (Auto) Baso # (Auto) Sodium 136 Potassium 3.2 L Chloride 110 H Carbon Dioxide 23 Anion Gap 6 L BUN 15 Creatinine 3.4 H Est GFR ( Amer) 19 Est GFR (Non-Af Amer) 16 POC Glucose (mg/dL) 33 L* 34 L* Random Glucose 48 L Hemoglobin A1c Lactic Acid Calcium 8.0 L Phosphorus 2.6 Magnesium 1.8 Total Bilirubin 0.1 L AST 18 ALT 22 Alkaline Phosphatase 88 Total Creatine Kinase Total Protein 5.0 L Albumin 2.2 L Globulin 2.8 Albumin/Globulin Ratio 0.8 L 25-OH Vitamin D Total FSH 3rd Generation Prolactin Urine Color Urine Clarity Urine pH Ur Specific [place] Urine Protein Urine Glucose (UA) Urine Ketones Urine Blood Urine Nitrate Urine Bilirubin Urine Urobilinogen Ur Leukocyte Esterase Urine RBC (Auto) Urine Microscopic WBC Ur Squamous Epith Cells Urine Bacteria B-Hydroxybutyrate C. difficile Ag & Toxin 11/18/17 12:08 WBC RBC Hgb Hct MCV MCH MCHC RDW Plt Count MPV Neut % (Auto) Lymph % (Auto) [place] % (Auto) Eos % (Auto) Baso % (Auto) Neut # (Auto) Lymph # (Auto) [place] # (Auto) Eos # (Auto) Baso # (Auto) Sodium Potassium Chloride Carbon Dioxide Anion Gap BUN Creatinine Est GFR ( Amer) Est GFR (Non-Af Amer) POC Glucose (mg/dL) 96 Random Glucose Hemoglobin A1c Lactic Acid Calcium Phosphorus Magnesium Total Bilirubin AST ALT Alkaline Phosphatase Total Creatine Kinase Total Protein Albumin Globulin Albumin/Globulin Ratio 25-OH Vitamin D Total FSH 3rd Generation Prolactin Urine Color Urine Clarity Urine pH Ur Specific [place] Urine Protein Urine Glucose (UA) Urine Ketones Urine Blood Urine Nitrate Urine Bilirubin Urine Urobilinogen Ur Leukocyte Esterase Urine RBC (Auto) Urine Microscopic WBC Ur Squamous Epith Cells Urine Bacteria B-Hydroxybutyrate C. difficile Ag & Toxin Microbiology 11/16/17 16:30 Naris MRSA Culture (Admit) - Final MRSA NOT DETECTED 11/15/17 17:00 Blood-Venous Blood Culture - Preliminary NO GROWTH AFTER 48 HOURS 11/15/17 17:33 Blood-Venous Blood Culture - Preliminary Gram Positive Cocci 11/15/17 17:33 Blood-Venous Gram Stain - Final 11/13/17 05:20 Urine,Catheterized Urine Culture - Final No Growth (<1,000 CFU/ML) Assessment and Plan (1) Gastroparesis Status: Acute (2) Intractable vomiting Status: Acute (3) CKD (chronic kidney disease), stage IV Status: Chronic (4) Leukocytosis Status: Acute - Assessment and Plan (Free Text) Assessment: A/P- 27 year old female with TYpe 1DM, gastroparesis, CKD admitted with intarctable vomiting and ? seizures. has remained afebrile leukocytosis resolved. urine cx- neg Blood cx from 11/15/2017 1 out of 2 bottles GPC in clusters c.diff tox and Ag- neg plan- continue with empiric zosyn and flagyl for the mild rectosigmoid thickening day #4. advise 1 more day of these abx. started IV Daptomycin last night for his GPC in 1 blood cx. ( renal dose every other day). started dapto since pt. has renal insufficiency and hence advise to avoid vanco. check another 2 blood cx one from midline and one peripheral. check TTE r/o vegetations. Patient verbalizes full understanding of all above and agrees with above plan of care. d/w and [employer].
[2017-11-18 11:13] LABS: BASO # 0.1 K/uL (0.0-0.2); BASO % 0.8 % (0.0-2.0); EOS # 0.1 K/uL (0.0-0.7); EOS % 1.3 % (0.0-4.0); HEMOGLOBIN 9.5 g/dL (12.0-16.0); LYMPH # 1.8 K/uL (1.0-4.3); MEAN CORPUSCULAR HEMOGLOBIN 29.5 pg (27.0-31.0); MEAN CORPUSCULAR HGB CONC 34.3 g/dL (33.0-37.0); MEAN PLATELET VOLUME 9.4 fl (7.2-11.7); MONO # 0.6 K/uL (0.0-0.8); MONO % 7.5 % (0.0-10.0); NEUT # 5.5 K/uL (1.8-7.0); NEUT % 68.4 % (50.0-75.0); RBC 3.21 Mil/uL (3.80-5.20); RED CELL DISTRIBUTION WIDTH 13.4 % (11.5-14.5); WHITE BLOOD COUNT 8.1 K/uL (4.8-10.8)
[2017-11-18] MEDS ORDERED: Dextrose 50% SYRINGE Inj (50 ml) IVP ONE (11:17)
[2017-11-18 11:23] LABS: ALB/GLOB RATIO 0.8 (1.0-2.1); ALBUMIN 2.2 g/dL (3.5-5.0)
[2017-11-18] MEDS ORDERED: Labetalol 5 mg/ml Inj 20ML IVP ONE (12:15)
--- NOTE | 2017-11-18 13:50 | CP.PCM.PN ---
Subjective - Date & Time of Evaluation Date of Evaluation: 11/18/17 Time of Evaluation: 13:49 - Subjective Subjective: still nauseous Objective - Vital Signs/Intake and Output Vital Signs (last 24 hours): Temp Pulse Resp BP Pulse Ox 98.5 F 100 H 18 177/106 H 100 11/18/17 11:58 11/18/17 11:58 11/18/17 11:58 11/18/17 11:58 11/18/17 11:58 Intake and Output: 11/18/17 11/18/17 06:59 18:59 Intake Total 1000 Output Total 1 Balance 999 - Medications Medications: Current Medications Acetaminophen (Tylenol 325mg Tab) 650 mg PO Q4 PRN PRN Reason: Fever >100.4 F Last Admin: 11/13/17 13:50 Dose: 650 mg Acetaminophen (Tylenol 325mg Tab) 650 mg PO Q4 PRN PRN Reason: Pain, Mild (1-3) Last Admin: 11/17/17 11:04 Dose: 650 mg Amlodipine Besylate (Norvasc) 10 mg PO DAILY [facility] Last Admin: 11/18/17 11:50 Dose: Not Given Clonidine HCl (Catapres Tts1 0.1 Mg/24 Hr) 1 patch TD Q7D [facility] Last Admin: 11/14/17 18:42 Dose: 1 patch Diphenhydramine HCl (Benadryl) 50 mg IVP Q6 PRN PRN Reason: itching Last Admin: 11/18/17 08:16 Dose: 50 mg Ergocalciferol (Drisdol 50,000 Intl Units Cap) 1 cap PO QWK [facility] Ferrous Sulfate (Feosol) 325 mg PO BID [facility] Last Admin: 11/14/17 09:56 Dose: Not Given Folic Acid (Folic Acid) 1 mg PO DAILY [facility] Last Admin: 11/14/17 09:57 Dose: Not Given Hydralazine HCl (Apresoline) 10 mg IV Q6 PRN PRN Reason: SBP>180 or DBP>110 Last Admin: 11/17/17 04:40 Dose: 10 mg Piperacillin Sod/Tazobactam (Sod 2.25 gm/ Sodium Chloride) 100 mls @ 100 mls/hr IVPB Q8 [facility]; Protocol Last Admin: 11/18/17 09:51 Dose: 100 mls/hr Iron Sucrose 100 mg/ Sodium (Chloride) 105 mls @ 105 mls/hr IVPB DAILY [facility] Last Admin: 11/17/17 10:05 Dose: 105 mls/hr Daptomycin 410 mg/ Sodium (Chloride) 100 mls @ 100 mls/hr IV DAILY [facility] Stop: 11/23/17 09:01 Last Admin: 11/18/17 08:31 Dose: 100 mls/hr Potassium Chloride 40 meq/ (Sodium Chloride) 1,020 mls @ 100 mls/hr IV .[id number] [facility] Stop: 11/18/17 18:45 Last Admin: 11/18/17 04:58 Dose: Not Given Insulin Detemir (Levemir) 16 units SC HS [facility] Last Admin: 11/17/17 21:41 Dose: 16 units Insulin Detemir (Levemir) 5 units SC DAILY [facility] Insulin Human Lispro (Humalog) 0 units SC ACHS [facility] Last Admin: 11/18/17 12:30 Dose: Not Given Labetalol HCl (Trandate) 20 mg IVP Q4H PRN PRN Reason: Systolic Blood Pressure Last Admin: 11/17/17 17:05 Dose: 20 mg Metoclopramide HCl (Reglan) 5 mg IVP Q6H [facility] Last Admin: 11/18/17 09:52 Dose: 5 mg Ondansetron HCl (Zofran Odt) 4 mg PO Q8H PRN PRN Reason: Nausea/Vomiting Last Admin: 11/14/17 04:29 Dose: 4 mg Ondansetron HCl (Zofran Inj) 4 mg IVP Q6 PRN PRN Reason: Nausea/Vomiting Last Admin: 11/18/17 01:21 Dose: 4 mg Pantoprazole Sodium (Protonix Inj) 40 mg IVP DAILY [facility] Last Admin: 11/18/17 08:30 Dose: 40 mg Sertraline HCl (Zoloft) 25 mg PO DAILY@2200 [facility] - Labs Labs: 11/18/17 10:47 11/18/17 10:47 - Neck Exam Neck Exam: Normal Inspection - Respiratory Exam Respiratory Exam: Clear to Ausculation Bilateral, NORMAL BREATHING PATTERN - Cardiovascular Exam Cardiovascular Exam: REGULAR RHYTHM - GI/Abdominal Exam GI & Abdominal Exam: Soft, Normal Bowel Sounds Assessment and Plan - Assessment and Plan (Free Text) Assessment: 27 yo female with gastroparesis anti-emetics advance diet as tolerated
--- NOTE | 2017-11-18 16:47 | CARD ---
APPROVED REPORT Date of service: 11/18/2017 EXAM: Two-dimensional and M-mode echocardiogram with Doppler and color Doppler. Other Information Quality : GoodRhythm : NSR INDICATION POSITIVE BLOOD CULTURES 2D DIMENSIONS IVSd1.52 (0.7-1.1cm)LVDd3.91 (3.9-5.9cm) LVOT Diameter1.93 (1.8-2.4cm)PWd0.88 (0.7-1.1cm) IVSs1.54 (0.8-1.2cm)LVDs3.03 (2.5-4.0cm) FS (%) 22.7 %PWs1.21 (0.8-1.2cm) M-Mode DIMENSIONS Left Atrium (MM)3.35 (2.5-4.0cm)Aortic Root2.44 (2.2-3.7cm) Aortic Valve AoV Peak Bcetgzjl597.9cm/sAoV VTI22.2cmAO Peak GR.6mmHg LVOT Peak Ijtjmotx55.1cm/sLVOT VTI19.88cmAO Mean GR.4mmHg RAFAELA (VMAX)1.73rs0HKS (VTI)1.56cm2 Mitral Valve MV E Kwjoydjl32.8cm/sMV DECEL BRLH301ohGK A Obpeihjl52.8cm/s MV PRZ47sxQ/A ratio0.9MVA (PHT)4.69cm2 TDI Lateral E' Peak V9.68cm/sE/Lateral E'9.0E/Medial E'0.0 Pulmonary Valve RVOT VTI14.2cm Tricuspid Valve RAP WHTXETLW4flDd LEFT VENTRICLE The left ventricle is normal size. There is normal left ventricular wall thickness. The left ventricular systolic function is normal. The estimated ejection fraction is 60-65% No regional wall motion abnormalities noted.. The left ventricular diastolic function is normal. No left ventricle thrombus noted on this study. There is no ventricular septal defect visualized. There is no left ventricular aneurysm. There is no mass noted in the left ventricle. RIGHT VENTRICLE The right ventricle is normal size. There is normal right ventricular wall thickness. The right ventricular systolic function is normal. ATRIA The left atrium size is normal. The right atrium size is normal. The interatrial septum is intact with no evidence for an atrial septal defect. AORTIC VALVE The aortic valve is normal in structure. No aortic regurgitation is present. There is no aortic valvular stenosis. There is no aortic valvular vegetation. MITRAL VALVE The mitral valve is normal in structure. There is no evidence of mitral valve prolapse. There is no mitral valve stenosis. There is no mitral valve regurgitation noted. TRICUSPID VALVE The tricuspid valve is normal in structure. There is trace tricuspid regurgitation. There is no tricuspid valve prolapse or vegetation. There is no tricuspid valve stenosis. PULMONIC VALVE The pulmonary valve is normal in structure. There is no pulmonic valvular regurgitation. There is no pulmonic valvular stenosis. GREAT VESSELS The aortic root is normal in size. The ascending aorta is normal in size. The pulmonary artery is normal. The IVC is normal in size and collapses >50% with inspiration. PERICARDIAL EFFUSION There is no pericardial effusion. There is no pleural effusion. <Conclusion> The estimated ejection fraction is 60-65% The left ventricular diastolic function is normal. The left atrium size is normal. There is trace tricuspid regurgitation. No vegetations are detected. Consider JASKARAN if clinically indicated to r/o endocarditis.
--- NOTE | 2017-11-18 17:05 | PCM.RRT ---
<Nita Quispe - Last Filed: 11/18/17 17:21> LIGHT RAIL TRANSIT OPERATOR Nurse Assessment - Situation LIGHT RAIL TRANSIT OPERATOR Responder Arrival Time: 04:32 LIGHT RAIL TRANSIT OPERATOR Reason for Call: Change in Mental Status - IV IV Inserted during LIGHT RAIL TRANSIT OPERATOR?: No - Respiratory Oxygen Delivery Method: Room Air Received Nebulizer Treatments: No Was the Patient Ventilated with Bag/Mask 100% O2?: No Secretions Suctioned?: No Was the Patient Intubated?: No Was the Patient Placed on a Ventilator?: No - Diagnostic Test Ordered EKG: No Chest X-Ray: No CT Scan: No - Stat Labs Ordered LIGHT RAIL TRANSIT OPERATOR Other Labs Ordered: pro lactate, CK CPR started during LIGHT RAIL TRANSIT OPERATOR?: No I.Reason for LIGHT RAIL TRANSIT OPERATOR - A) Acute Change in Patient: (Select all that apply): Acute change in mental status (Seizure ) Subjective: LIGHT RAIL TRANSIT OPERATOR was called for 27 y/o F with PMH of DMI, CKD stage V, Pseudo-seizures and gastroparesis due to seizure like activities after Echo. LIGHT RAIL TRANSIT OPERATOR was called from Ultrasound/ocular care technician, as per tech patient had juice and right after Echo she started to have seizure like activities which stopped in few seconds. Upon arrival, patient was alert, awake and oriented, patient vomited clear liquid twice and c/o mild nausea. Patient has been seen by Neurology and GI during this admission. Patient was transferred to her room on 4th floor, patient has PRN orders for anti-emetics. Will follow up as needed. Continue management as per primary team and specialists on the case. Case discussed with Dr. Mcmahon --- Nita Quispe, PGY-II - Neurological Status (Select all that apply): Alert, Responsive, Oriented, Verbal, Follows Commands - Constitutional Appears: No Acute Distress Additional Comments: Vomited twice - Head Head Exam: NORMAL INSPECTION - Eyes Eye Exam: Normal appearance - Respiratory Exam Respiratory Exam: Clear to Ausculation Bilateral - Cardiovascular Exam Cardiovascular Exam: REGULAR RHYTHM - GI/Abdominal Exam GI & Abdominal Exam: Soft - Neurological Exam Neurological Exam: Alert, Awake, Oriented x3 - Extremities Exam Extremities Exam: Full ROM <Mauricio Mcmahon - Last Filed: 11/19/17 09:29> LIGHT RAIL TRANSIT OPERATOR Nurse Assessment - Vital Signs Vital Signs: Rapid Response Vital Sign Blood Pressure 128/73 Pulse Rate 108 Respiratory Rate 17 Oxygen Saturation 100 - Vital Signs at end of LIGHT RAIL TRANSIT OPERATOR Vital Signs at end of LIGHT RAIL TRANSIT OPERATOR: Rapid Response End Vital Sign Blood Pressure 138/80 Pulse Rate 103 Respiratory Rate 16 O2 Sat by Pulse Oximetry 100 Attending/Attestation - Attestation I have personally seen and examined this patient.: Yes I have fully participated in the care of the patient.: Yes I have reviewed all pertinent clinical information, including history, physical exam and plan: Yes
[2017-11-18] MEDS ORDERED: Potassium Chloride 20 mEq/15 ml LIQ UD PO ONE (17:30)
[2017-11-18] MEDS: Metoprolol 1 mg/ml Inj IVP PRN (18:08)
[2017-11-18] MEDS ORDERED: Insulin Detemir 100 Units/ml Inj SC SCH (22:15)
[2017-11-19] MEDS: Metoprolol 1 mg/ml Inj IVP PRN ×2 (00:02→09:22)
--- NOTE | 2017-11-19 00:53 | CP.PCM.PN ---
Subjective - Date & Time of Evaluation Date of Evaluation: 11/17/17 Time of Evaluation: 17:25 Objective - Vital Signs/Intake and Output Vital Signs (last 24 hours): Temp Pulse Resp BP Pulse Ox 98.7 F 93 H 18 174/120 H 99 11/18/17 23:59 11/19/17 00:02 11/18/17 23:59 11/19/17 00:02 11/18/17 23:59 Intake and Output: 11/18/17 11/19/17 18:59 06:59 Intake Total 1680 Balance 1680 - Medications Medications: Current Medications Acetaminophen (Tylenol 325mg Tab) 650 mg PO Q4 PRN PRN Reason: Fever >100.4 F Last Admin: 11/13/17 13:50 Dose: 650 mg Acetaminophen (Tylenol 325mg Tab) 650 mg PO Q4 PRN PRN Reason: Pain, Mild (1-3) Last Admin: 11/17/17 11:04 Dose: 650 mg Amlodipine Besylate (Norvasc) 10 mg PO DAILY [facility] Last Admin: 11/18/17 11:50 Dose: Not Given Clonidine HCl (Catapres Tts1 0.1 Mg/24 Hr) 1 patch TD Q7D [facility] Last Admin: 11/14/17 18:42 Dose: 1 patch Diphenhydramine HCl (Benadryl) 50 mg IVP Q6 PRN PRN Reason: itching Last Admin: 11/18/17 23:01 Dose: 50 mg Ergocalciferol (Drisdol 50,000 Intl Units Cap) 1 cap PO QWK [facility] Ferrous Sulfate (Feosol) 325 mg PO BID [facility] Last Admin: 11/14/17 09:56 Dose: Not Given Folic Acid (Folic Acid) 1 mg PO DAILY [facility] Last Admin: 11/14/17 09:57 Dose: Not Given Piperacillin Sod/Tazobactam (Sod 2.25 gm/ Sodium Chloride) 100 mls @ 100 mls/hr IVPB Q8 [facility]; Protocol Last Admin: 11/19/17 00:03 Dose: 100 mls/hr Iron Sucrose 100 mg/ Sodium (Chloride) 105 mls @ 105 mls/hr IVPB DAILY [facility] Last Admin: 11/17/17 10:05 Dose: 105 mls/hr Daptomycin 410 mg/ Sodium (Chloride) 100 mls @ 100 mls/hr IV Q48H [facility]; Protocol Stop: 11/23/17 14:16 Last Admin: 11/18/17 14:31 Dose: Not Given Potassium Chloride/Dextrose/Sod Cl (Potassium Chl 20 Meq In D5-1/2ns) 1,000 mls @ 100 mls/hr IV .Q10H [facility] Stop: 11/19/17 22:16 Insulin Detemir (Levemir) 10 units SC HS [facility] Last Admin: 11/18/17 23:05 Dose: Not Given Insulin Human Lispro (Humalog) 0 units SC ACHS [facility] Last Admin: 11/18/17 21:39 Dose: Not Given Metoclopramide HCl (Reglan) 5 mg IVP Q6H [facility] Last Admin: 11/18/17 21:43 Dose: 5 mg Metoprolol Tartrate (Lopressor) 5 mg IVP Q6 PRN PRN Reason: for sys b/p >180 or d b/p>110 Last Admin: 11/19/17 00:02 Dose: 5 mg Ondansetron HCl (Zofran Odt) 4 mg PO Q8H PRN PRN Reason: Nausea/Vomiting Last Admin: 11/14/17 04:29 Dose: 4 mg Ondansetron HCl (Zofran Inj) 4 mg IVP Q6 PRN PRN Reason: Nausea/Vomiting Last Admin: 11/18/17 01:21 Dose: 4 mg Pantoprazole Sodium (Protonix Inj) 40 mg IVP DAILY [facility] Last Admin: 11/18/17 08:30 Dose: 40 mg Sertraline HCl (Zoloft) 25 mg PO DAILY@2200 [facility] Last Admin: 11/18/17 21:45 Dose: 25 mg - Labs Labs: 11/18/17 10:47 11/18/17 10:47 Assessment and Plan (1) Acute on chronic renal failure Status: Acute (2) Diabetes mellitus with hyperglycemia, with long-term current use of insulin Status: Acute (3) Seizure Status: Acute (4) Colitis Status: Acute
--- NOTE | 2017-11-19 00:54 | CP.PCM.PN ---
Subjective - Date & Time of Evaluation Date of Evaluation: 11/18/17 Time of Evaluation: 16:20 Objective - Vital Signs/Intake and Output Vital Signs (last 24 hours): Temp Pulse Resp BP Pulse Ox 98.7 F 93 H 18 174/120 H 99 11/18/17 23:59 11/19/17 00:02 11/18/17 23:59 11/19/17 00:02 11/18/17 23:59 Intake and Output: 11/18/17 11/19/17 18:59 06:59 Intake Total 1680 Balance 1680 - Medications Medications: Current Medications Acetaminophen (Tylenol 325mg Tab) 650 mg PO Q4 PRN PRN Reason: Fever >100.4 F Last Admin: 11/13/17 13:50 Dose: 650 mg Acetaminophen (Tylenol 325mg Tab) 650 mg PO Q4 PRN PRN Reason: Pain, Mild (1-3) Last Admin: 11/17/17 11:04 Dose: 650 mg Amlodipine Besylate (Norvasc) 10 mg PO DAILY [facility] Last Admin: 11/18/17 11:50 Dose: Not Given Clonidine HCl (Catapres Tts1 0.1 Mg/24 Hr) 1 patch TD Q7D [facility] Last Admin: 11/14/17 18:42 Dose: 1 patch Diphenhydramine HCl (Benadryl) 50 mg IVP Q6 PRN PRN Reason: itching Last Admin: 11/18/17 23:01 Dose: 50 mg Ergocalciferol (Drisdol 50,000 Intl Units Cap) 1 cap PO QWK [facility] Ferrous Sulfate (Feosol) 325 mg PO BID [facility] Last Admin: 11/14/17 09:56 Dose: Not Given Folic Acid (Folic Acid) 1 mg PO DAILY [facility] Last Admin: 11/14/17 09:57 Dose: Not Given Piperacillin Sod/Tazobactam (Sod 2.25 gm/ Sodium Chloride) 100 mls @ 100 mls/hr IVPB Q8 [facility]; Protocol Last Admin: 11/19/17 00:03 Dose: 100 mls/hr Iron Sucrose 100 mg/ Sodium (Chloride) 105 mls @ 105 mls/hr IVPB DAILY [facility] Last Admin: 11/17/17 10:05 Dose: 105 mls/hr Daptomycin 410 mg/ Sodium (Chloride) 100 mls @ 100 mls/hr IV Q48H [facility]; Protocol Stop: 11/23/17 14:16 Last Admin: 11/18/17 14:31 Dose: Not Given Potassium Chloride/Dextrose/Sod Cl (Potassium Chl 20 Meq In D5-1/2ns) 1,000 mls @ 100 mls/hr IV .Q10H [facility] Stop: 11/19/17 22:16 Insulin Detemir (Levemir) 10 units SC HS [facility] Last Admin: 11/18/17 23:05 Dose: Not Given Insulin Human Lispro (Humalog) 0 units SC ACHS [facility] Last Admin: 11/18/17 21:39 Dose: Not Given Metoclopramide HCl (Reglan) 5 mg IVP Q6H [facility] Last Admin: 11/18/17 21:43 Dose: 5 mg Metoprolol Tartrate (Lopressor) 5 mg IVP Q6 PRN PRN Reason: for sys b/p >180 or d b/p>110 Last Admin: 11/19/17 00:02 Dose: 5 mg Ondansetron HCl (Zofran Odt) 4 mg PO Q8H PRN PRN Reason: Nausea/Vomiting Last Admin: 11/14/17 04:29 Dose: 4 mg Ondansetron HCl (Zofran Inj) 4 mg IVP Q6 PRN PRN Reason: Nausea/Vomiting Last Admin: 11/18/17 01:21 Dose: 4 mg Pantoprazole Sodium (Protonix Inj) 40 mg IVP DAILY [facility] Last Admin: 11/18/17 08:30 Dose: 40 mg Sertraline HCl (Zoloft) 25 mg PO DAILY@2200 [facility] Last Admin: 11/18/17 21:45 Dose: 25 mg - Labs Labs: 11/18/17 10:47 11/18/17 10:47 Assessment and Plan (1) Acute on chronic renal failure Status: Acute (2) Diabetes mellitus with hyperglycemia, with long-term current use of insulin Status: Acute (3) Seizure Status: Acute (4) Colitis Status: Acute
--- NOTE | 2017-11-19 02:18 | PN ---
DATE: 11/18/2017 ENDOCRINOLOGY FOLLOWUP NOTE LOCATION: Room 414. SUBJECTIVE: This is a 27-year-old female with recent uncontrolled type 1 insulin-dependent diabetes, presenting here with acute exacerbation of diabetic gastroparesis and also extremes of glycemic fluctuations from hyperglycemic accelerations to symptomatic hypoglycemia related to very nil and suboptimal oral intake at this time. Her glucose levels today have ranged from 34 to 96 and 100 mg/dL. LABORATORY DATA: Her latest chemistry showed a BUN of 15, sodium 136, potassium 3.2, chloride 110, CO2 of 23, glucose 48 and creatinine 3.4. ASSESSMENT AND PLAN: So at this time, we will modify once again her basal and bolus insulin regimen to accommodate variability of her oral intake as noted. We will discontinue the morning Levemir and lower the basal insulin of Levemir down to 10 units subcutaneously at bedtime daily as given. We will obtain serial chemistries and supplement accordingly as needed. We will follow. Yamileth Charles MD
[2017-11-19] MEDS: DiphenhydrAMINE 50 mg/ml Inj IVP PRN ×3 (04:28→21:38)
[2017-11-19] MEDS: Potassium Ch 20mEq in D5-1/2NS 1,000 ML IV SCH ×3 (04:29→08:23)
[2017-11-19] MEDS: Insulin Lispro (humaLOG) 100 Units/ml Inj SC SCH ×4 (08:31→21:40)
[2017-11-19] MEDS ORDERED: Insulin Detemir 100 Units/ml Inj SC SCH ×2 (09:00→22:00)
[2017-11-19 09:48] LABS: CALCIUM 7.9 mg/dL (8.4-10.2)
[2017-11-19] MEDS ORDERED: Potassium Ch 20mEq in D5-1/2NS 1,000 ML IV SCH (11:56)
[2017-11-19] MEDS ORDERED: Metoprolol 1 mg/ml Inj IVP ONE (13:05)
[2017-11-19] MEDS ORDERED: Labetalol 5 mg/ml Inj 20ML IVP PRN (13:35)
--- NOTE | 2017-11-19 17:23 | PN ---
DATE: 11/19/2017 ENDO FOLLOWUP NOTE LOCATION: In room 414. SUBJECTIVE: This is a 27-year-old female with recent uncontrolled type 1 insulin-dependent diabetes, presenting here with severe upper and lower abdominal pain with exacerbation of diabetic gastroparesis and is now being followed closely for metabolic management. She also has progressive renal insufficiency, but has improved over the last few days with IV hydration as given. LABORATORY DATA: Her latest chemistry showed a BUN of 11, sodium 139, potassium 4, chloride 112, CO2 of 25, glucose 90, and creatinine 3.3. ASSESSMENT AND PLAN: She developed media specialist hypoglycemia with glucose of 35 mg/dL and received D50 bolus injections and the repeat glucose was 95 mg/dL. She is only on the basal insulin regimen because of the variability and suboptimal meal portions as noted. So at this time, we will lower once again her basal insulin with Levemir to be given as 6 units subcutaneously at bedtime daily to start tonight. We will also continue the low dose correction scale using Humalog insulin as given. We will obtain serial chemistries and supplement accordingly as needed. We will only add prandial insulin if her oral intake improves accordingly. We will follow. Yamileth Charles MD
--- NOTE | 2017-11-19 23:12 | CP.PCM.PN ---
Subjective - Date & Time of Evaluation Date of Evaluation: 11/19/17 Time of Evaluation: 20:30 - Subjective Subjective: Patient reports persistent vomiting this morning but has since been tolerating liquids; Objective - Vital Signs/Intake and Output Vital Signs (last 24 hours): Temp Pulse Resp BP Pulse Ox 98 F 90 20 151/100 H 98 11/19/17 19:25 11/19/17 19:25 11/19/17 19:25 11/19/17 19:25 11/19/17 19:25 - Medications Medications: Current Medications Acetaminophen (Tylenol 325mg Tab) 650 mg PO Q4 PRN PRN Reason: Fever >100.4 F Last Admin: 11/13/17 13:50 Dose: 650 mg Acetaminophen (Tylenol 325mg Tab) 650 mg PO Q4 PRN PRN Reason: Pain, Mild (1-3) Last Admin: 11/17/17 11:04 Dose: 650 mg Amlodipine Besylate (Norvasc) 10 mg PO DAILY [facility] Last Admin: 11/19/17 09:23 Dose: Not Given Clonidine HCl (Catapres Tts1 0.1 Mg/24 Hr) 1 patch TD Q7D [facility] Last Admin: 11/14/17 18:42 Dose: 1 patch Diphenhydramine HCl (Benadryl) 50 mg IVP Q6 PRN PRN Reason: itching Last Admin: 11/19/17 10:19 Dose: 50 mg Ergocalciferol (Drisdol 50,000 Intl Units Cap) 1 cap PO QWK [facility] Ferrous Sulfate (Feosol) 325 mg PO BID [facility] Last Admin: 11/14/17 09:56 Dose: Not Given Folic Acid (Folic Acid) 1 mg PO DAILY [facility] Last Admin: 11/14/17 09:57 Dose: Not Given Piperacillin Sod/Tazobactam (Sod 2.25 gm/ Sodium Chloride) 100 mls @ 100 mls/hr IVPB Q8 [facility]; Protocol Last Admin: 11/19/17 16:16 Dose: 100 mls/hr Iron Sucrose 100 mg/ Sodium (Chloride) 105 mls @ 105 mls/hr IVPB DAILY [facility] Last Admin: 11/17/17 10:05 Dose: 105 mls/hr Daptomycin 410 mg/ Sodium (Chloride) 100 mls @ 100 mls/hr IV Q48H [facility]; Protocol Stop: 11/23/17 14:16 Last Admin: 11/18/17 14:31 Dose: Not Given Insulin Detemir (Levemir) 6 units SC HS [facility] Last Admin: 11/19/17 21:43 Dose: 6 units Insulin Human Lispro (Humalog) 0 units SC ACHS [facility] Last Admin: 11/19/17 21:40 Dose: 4 units Labetalol HCl (Trandate) 20 mg IVP Q4H PRN PRN Reason: Systolic Blood Pressure Metoclopramide HCl (Reglan) 5 mg IVP Q6H [facility] Last Admin: 11/19/17 22:37 Dose: 5 mg Metoprolol Tartrate (Lopressor) 5 mg IVP Q6 PRN PRN Reason: for sys b/p >180 or d b/p>110 Last Admin: 11/19/17 09:22 Dose: 5 mg Ondansetron HCl (Zofran Odt) 4 mg PO Q8H PRN PRN Reason: Nausea/Vomiting Last Admin: 11/14/17 04:29 Dose: 4 mg Ondansetron HCl (Zofran Inj) 4 mg IVP Q6 PRN PRN Reason: Nausea/Vomiting Last Admin: 11/19/17 07:41 Dose: 4 mg Pantoprazole Sodium (Protonix Inj) 40 mg IVP DAILY [facility] Last Admin: 11/19/17 08:26 Dose: 40 mg Sertraline HCl (Zoloft) 25 mg PO DAILY@2200 [facility] Last Admin: 11/19/17 22:37 Dose: 25 mg - Labs Labs: 11/18/17 10:47 11/19/17 09:23 - Constitutional Appears: Non-toxic, No Acute Distress - Eye Exam Eye Exam: Normal appearance. absent: Scleral icterus - Respiratory Exam Respiratory Exam: Clear to Ausculation Bilateral. absent: Respiratory Distress - Cardiovascular Exam Cardiovascular Exam: RRR, +S1, +S2 - GI/Abdominal Exam Additional comments: doesn't allow to examine abd; - Extremities Exam Additional comments: no leg edema; - Neurological Exam Neurological Exam: Alert, Awake - Psychiatric Exam Psychiatric exam: absent: Agitated - Skin Skin Exam: Warm. absent: Cyanosis Assessment and Plan (1) SIRS (systemic inflammatory response syndrome) Assessment & Plan: Coag neg staph on blood culture from just 1 bottle (other negative) from sample drawn from PICC; on dapto and zosyn, dosed for CrCl < 20; ideally needs to have PICC removed to avoid complications (even if blood culture is contaminant) but we would have no IV access or means of blood draws in patient whose veins are difficult to find; Status: Acute (2) NICKI (acute kidney injury) Assessment & Plan: Resolved; NICKI on CKD IV/V; pre-renal etiology; agree with continuing gentle IVF w/ 1/2NS at 60 cc/hr (w/ 40 meq KCl/L); hypokalemia being supplemented; Status: Chronic (3) Gastroparesis Status: Acute (4) Anemia in CKD (chronic kidney disease) Assessment & Plan: Hgb below goal but stable; s/p 1 dose of epo; will monitor; Status: Chronic (5) Hypertensive CKD (chronic kidney disease) Assessment & Plan: BP control erratic; patient advised to take her PO med, even if is delayed a few hours (refuses at times due to nausea); continue clonidine patch and prn labetalol; Status: Chronic
[2017-11-20] MEDS: Metoprolol 1 mg/ml Inj IVP PRN ×2 (01:00→15:32)
[2017-11-20 05:55] LABS: HEMOGLOBIN 8.5 g/dL (12.0-16.0); MEAN CELL VOLUME 87.5 fl (81.0-99.0); MEAN CORPUSCULAR HEMOGLOBIN 28.6 pg (27.0-31.0); MEAN CORPUSCULAR HGB CONC 32.6 g/dL (33.0-37.0); RBC 2.97 Mil/uL (3.80-5.20); RED CELL DISTRIBUTION WIDTH 13.8 % (11.5-14.5); WHITE BLOOD COUNT 8.2 K/uL (4.8-10.8)
[2017-11-20 06:16] LABS: CALCIUM 7.1 mg/dL (8.4-10.2)
[2017-11-20] MEDS: DiphenhydrAMINE 50 mg/ml Inj IVP PRN ×3 (06:17→22:32)
--- NOTE | 2017-11-20 08:38 | CP.PCM.PN ---
Subjective - Date & Time of Evaluation Date of Evaluation: 11/19/17 Time of Evaluation: 15:00 Objective - Vital Signs/Intake and Output Vital Signs (last 24 hours): Temp Pulse Resp BP Pulse Ox 98.2 F 97 H 20 172/132 H 100 11/20/17 01:00 11/20/17 01:00 11/20/17 01:00 11/20/17 01:00 11/20/17 01:00 - Medications Medications: Current Medications Acetaminophen (Tylenol 325mg Tab) 650 mg PO Q4 PRN PRN Reason: Fever >100.4 F Last Admin: 11/13/17 13:50 Dose: 650 mg Acetaminophen (Tylenol 325mg Tab) 650 mg PO Q4 PRN PRN Reason: Pain, Mild (1-3) Last Admin: 11/17/17 11:04 Dose: 650 mg Amlodipine Besylate (Norvasc) 10 mg PO DAILY [facility] Last Admin: 11/19/17 09:23 Dose: Not Given Clonidine HCl (Catapres Tts1 0.1 Mg/24 Hr) 1 patch TD Q7D [facility] Last Admin: 11/14/17 18:42 Dose: 1 patch Diphenhydramine HCl (Benadryl) 50 mg IVP Q6 PRN PRN Reason: itching Last Admin: 11/20/17 06:17 Dose: 50 mg Ergocalciferol (Drisdol 50,000 Intl Units Cap) 1 cap PO QWK [facility] Ferrous Sulfate (Feosol) 325 mg PO BID [facility] Last Admin: 11/14/17 09:56 Dose: Not Given Folic Acid (Folic Acid) 1 mg PO DAILY [facility] Last Admin: 11/14/17 09:57 Dose: Not Given Piperacillin Sod/Tazobactam (Sod 2.25 gm/ Sodium Chloride) 100 mls @ 100 mls/hr IVPB Q8 [facility]; Protocol Last Admin: 11/20/17 01:21 Dose: 100 mls/hr Iron Sucrose 100 mg/ Sodium (Chloride) 105 mls @ 105 mls/hr IVPB DAILY [facility] Last Admin: 11/17/17 10:05 Dose: 105 mls/hr Daptomycin 410 mg/ Sodium (Chloride) 100 mls @ 100 mls/hr IV Q48H [facility]; Protocol Stop: 11/23/17 14:16 Last Admin: 11/18/17 14:31 Dose: Not Given Insulin Detemir (Levemir) 6 units SC HS [facility] Last Admin: 11/19/17 21:43 Dose: 6 units Insulin Human Lispro (Humalog) 0 units SC ACHS [facility] Last Admin: 11/19/17 21:40 Dose: 4 units Labetalol HCl (Trandate) 20 mg IVP Q4H PRN PRN Reason: Systolic Blood Pressure Last Admin: 11/20/17 06:13 Dose: 20 mg Metoclopramide HCl (Reglan) 5 mg IVP Q6H [facility] Last Admin: 11/20/17 04:33 Dose: 5 mg Metoprolol Tartrate (Lopressor) 5 mg IVP Q6 PRN PRN Reason: for sys b/p >180 or d b/p>110 Last Admin: 11/20/17 01:00 Dose: 5 mg Ondansetron HCl (Zofran Odt) 4 mg PO Q8H PRN PRN Reason: Nausea/Vomiting Last Admin: 11/14/17 04:29 Dose: 4 mg Ondansetron HCl (Zofran Inj) 4 mg IVP Q6 PRN PRN Reason: Nausea/Vomiting Last Admin: 11/20/17 00:47 Dose: 4 mg Pantoprazole Sodium (Protonix Inj) 40 mg IVP DAILY [facility] Last Admin: 11/19/17 08:26 Dose: 40 mg Sertraline HCl (Zoloft) 25 mg PO DAILY@2200 [facility] Last Admin: 11/19/17 22:37 Dose: 25 mg - Labs Labs: 11/20/17 04:25 11/20/17 04:25 Assessment and Plan (1) Acute on chronic renal failure Status: Acute (2) Diabetes mellitus with hyperglycemia, with long-term current use of insulin Status: Acute (3) Seizure Status: Acute (4) Colitis Status: Acute
--- NOTE | 2017-11-20 08:38 | CP.PCM.PN ---
Subjective - Date & Time of Evaluation Date of Evaluation: 11/20/17 Time of Evaluation: 08:30 Objective - Vital Signs/Intake and Output Vital Signs (last 24 hours): Temp Pulse Resp BP Pulse Ox 98.2 F 97 H 20 172/132 H 100 11/20/17 01:00 11/20/17 01:00 11/20/17 01:00 11/20/17 01:00 11/20/17 01:00 - Medications Medications: Current Medications Acetaminophen (Tylenol 325mg Tab) 650 mg PO Q4 PRN PRN Reason: Fever >100.4 F Last Admin: 11/13/17 13:50 Dose: 650 mg Acetaminophen (Tylenol 325mg Tab) 650 mg PO Q4 PRN PRN Reason: Pain, Mild (1-3) Last Admin: 11/17/17 11:04 Dose: 650 mg Amlodipine Besylate (Norvasc) 10 mg PO DAILY [facility] Last Admin: 11/19/17 09:23 Dose: Not Given Clonidine HCl (Catapres Tts1 0.1 Mg/24 Hr) 1 patch TD Q7D [facility] Last Admin: 11/14/17 18:42 Dose: 1 patch Diphenhydramine HCl (Benadryl) 50 mg IVP Q6 PRN PRN Reason: itching Last Admin: 11/20/17 06:17 Dose: 50 mg Ergocalciferol (Drisdol 50,000 Intl Units Cap) 1 cap PO QWK [facility] Ferrous Sulfate (Feosol) 325 mg PO BID [facility] Last Admin: 11/14/17 09:56 Dose: Not Given Folic Acid (Folic Acid) 1 mg PO DAILY [facility] Last Admin: 11/14/17 09:57 Dose: Not Given Piperacillin Sod/Tazobactam (Sod 2.25 gm/ Sodium Chloride) 100 mls @ 100 mls/hr IVPB Q8 [facility]; Protocol Last Admin: 11/20/17 01:21 Dose: 100 mls/hr Iron Sucrose 100 mg/ Sodium (Chloride) 105 mls @ 105 mls/hr IVPB DAILY [facility] Last Admin: 11/17/17 10:05 Dose: 105 mls/hr Daptomycin 410 mg/ Sodium (Chloride) 100 mls @ 100 mls/hr IV Q48H [facility]; Protocol Stop: 11/23/17 14:16 Last Admin: 11/18/17 14:31 Dose: Not Given Insulin Detemir (Levemir) 6 units SC HS [facility] Last Admin: 11/19/17 21:43 Dose: 6 units Insulin Human Lispro (Humalog) 0 units SC ACHS [facility] Last Admin: 11/19/17 21:40 Dose: 4 units Labetalol HCl (Trandate) 20 mg IVP Q4H PRN PRN Reason: Systolic Blood Pressure Last Admin: 11/20/17 06:13 Dose: 20 mg Metoclopramide HCl (Reglan) 5 mg IVP Q6H [facility] Last Admin: 11/20/17 04:33 Dose: 5 mg Metoprolol Tartrate (Lopressor) 5 mg IVP Q6 PRN PRN Reason: for sys b/p >180 or d b/p>110 Last Admin: 11/20/17 01:00 Dose: 5 mg Ondansetron HCl (Zofran Odt) 4 mg PO Q8H PRN PRN Reason: Nausea/Vomiting Last Admin: 11/14/17 04:29 Dose: 4 mg Ondansetron HCl (Zofran Inj) 4 mg IVP Q6 PRN PRN Reason: Nausea/Vomiting Last Admin: 11/20/17 00:47 Dose: 4 mg Pantoprazole Sodium (Protonix Inj) 40 mg IVP DAILY [facility] Last Admin: 11/19/17 08:26 Dose: 40 mg Sertraline HCl (Zoloft) 25 mg PO DAILY@2200 [facility] Last Admin: 11/19/17 22:37 Dose: 25 mg - Labs Labs: 11/20/17 04:25 11/20/17 04:25 Assessment and Plan (1) Acute on chronic renal failure Status: Acute (2) Diabetes mellitus with hyperglycemia, with long-term current use of insulin Status: Acute (3) Seizure Status: Acute (4) Colitis Status: Acute
--- NOTE | 2017-11-20 09:03 | CP.PCM.PN ---
Subjective - Date & Time of Evaluation Date of Evaluation: 11/20/17 Time of Evaluation: 09:03 - Subjective Subjective: ID note- Pt. seen and examined. no new events today. afebrile. less nausea. Objective - Vital Signs/Intake and Output Vital Signs (last 24 hours): Temp Pulse Resp BP Pulse Ox 98 F 94 H 18 147/81 100 11/20/17 08:47 11/20/17 08:47 11/20/17 08:47 11/20/17 08:47 11/20/17 08:47 - Medications Medications: Current Medications Acetaminophen (Tylenol 325mg Tab) 650 mg PO Q4 PRN PRN Reason: Fever >100.4 F Last Admin: 11/13/17 13:50 Dose: 650 mg Acetaminophen (Tylenol 325mg Tab) 650 mg PO Q4 PRN PRN Reason: Pain, Mild (1-3) Last Admin: 11/17/17 11:04 Dose: 650 mg Amlodipine Besylate (Norvasc) 10 mg PO DAILY [facility] Last Admin: 11/19/17 09:23 Dose: Not Given Clonidine HCl (Catapres Tts1 0.1 Mg/24 Hr) 1 patch TD Q7D [facility] Last Admin: 11/14/17 18:42 Dose: 1 patch Diphenhydramine HCl (Benadryl) 50 mg IVP Q6 PRN PRN Reason: itching Last Admin: 11/20/17 06:17 Dose: 50 mg Ergocalciferol (Drisdol 50,000 Intl Units Cap) 1 cap PO QWK [facility] Ferrous Sulfate (Feosol) 325 mg PO BID [facility] Last Admin: 11/14/17 09:56 Dose: Not Given Folic Acid (Folic Acid) 1 mg PO DAILY [facility] Last Admin: 11/14/17 09:57 Dose: Not Given Piperacillin Sod/Tazobactam (Sod 2.25 gm/ Sodium Chloride) 100 mls @ 100 mls/hr IVPB Q8 [facility]; Protocol Last Admin: 11/20/17 01:21 Dose: 100 mls/hr Iron Sucrose 100 mg/ Sodium (Chloride) 105 mls @ 105 mls/hr IVPB DAILY [facility] Last Admin: 11/17/17 10:05 Dose: 105 mls/hr Daptomycin 410 mg/ Sodium (Chloride) 100 mls @ 100 mls/hr IV Q48H [facility]; Protocol Stop: 11/23/17 14:16 Last Admin: 11/18/17 14:31 Dose: Not Given Insulin Detemir (Levemir) 6 units SC HS [facility] Last Admin: 11/19/17 21:43 Dose: 6 units Insulin Human Lispro (Humalog) 0 units SC ACHS [facility] Last Admin: 11/19/17 21:40 Dose: 4 units Labetalol HCl (Trandate) 20 mg IVP Q4H PRN PRN Reason: Systolic Blood Pressure Last Admin: 11/20/17 06:13 Dose: 20 mg Metoclopramide HCl (Reglan) 5 mg IVP Q6H [facility] Last Admin: 11/20/17 04:33 Dose: 5 mg Metoprolol Tartrate (Lopressor) 5 mg IVP Q6 PRN PRN Reason: for sys b/p >180 or d b/p>110 Last Admin: 11/20/17 01:00 Dose: 5 mg Ondansetron HCl (Zofran Odt) 4 mg PO Q8H PRN PRN Reason: Nausea/Vomiting Last Admin: 11/14/17 04:29 Dose: 4 mg Ondansetron HCl (Zofran Inj) 4 mg IVP Q6 PRN PRN Reason: Nausea/Vomiting Last Admin: 11/20/17 00:47 Dose: 4 mg Pantoprazole Sodium (Protonix Inj) 40 mg IVP DAILY [facility] Last Admin: 11/19/17 08:26 Dose: 40 mg Sertraline HCl (Zoloft) 25 mg PO DAILY@2200 [facility] Last Admin: 11/19/17 22:37 Dose: 25 mg - Labs Labs: - Additional Findings Additional findings: - Constitutional Appears: No Acute Distress - Head Exam Head Exam: ATRAUMATIC - Eye Exam Eye Exam: PERRL - ENT Exam ENT Exam: Normal Oropharynx - Neck Exam Neck exam: Positive for: Full Rom - Respiratory Exam Respiratory Exam: Clear to Auscultation Bilateral, NORMAL BREATHING PATTERN - Cardiovascular Exam Cardiovascular Exam: RRR, +S1, +S2 - GI/Abdominal Exam GI & Abdominal Exam: Normal Bowel Sounds, Soft Additional comments: ND, NT - Extremities Exam Extremities exam: Positive for: normal inspection - Neurological Exam Laboratory Results - last 72 hr 11/17/17 11/17/17 11/17/17 04:20 12:00 17:05 WBC RBC Hgb Hct MCV MCH MCHC RDW Plt Count MPV Neut % (Auto) Lymph % (Auto) Clayton % (Auto) Eos % (Auto) Baso % (Auto) Neut # (Auto) Lymph # (Auto) Clayton # (Auto) Eos # (Auto) Baso # (Auto) Sodium Potassium Chloride Carbon Dioxide Anion Gap BUN Creatinine Est GFR ( Amer) Est GFR (Non-Af Amer) POC Glucose (mg/dL) 145 H Random Glucose Calcium Phosphorus Magnesium Total Bilirubin AST ALT Alkaline Phosphatase Total Creatine Kinase Total Protein Albumin Globulin Albumin/Globulin Ratio PTH w/Ion &Tot Calcium 76 H ACTH 14 11/17/17 11/18/17 11/18/17 21:38 05:41 10:47 WBC 8.1 RBC 3.21 L Hgb 9.5 L Hct 27.6 L MCV 86.0 MCH 29.5 MCHC 34.3 RDW 13.4 Plt Count 332 MPV 9.4 Neut % (Auto) 68.4 Lymph % (Auto) 22.0 Clayton % (Auto) 7.5 Eos % (Auto) 1.3 Baso % (Auto) 0.8 Neut # (Auto) 5.5 Lymph # (Auto) 1.8 Clayton # (Auto) 0.6 Eos # (Auto) 0.1 Baso # (Auto) 0.1 Sodium Potassium Chloride Carbon Dioxide Anion Gap BUN Creatinine Est GFR ( Amer) Est GFR (Non-Af Amer) POC Glucose (mg/dL) 390 H 132 H Random Glucose Calcium Phosphorus Magnesium Total Bilirubin AST ALT Alkaline Phosphatase Total Creatine Kinase Total Protein Albumin Globulin Albumin/Globulin Ratio PTH w/Ion &Tot Calcium ACTH 11/18/17 11/18/17 11/18/17 10:47 11:13 11:15 WBC RBC Hgb Hct MCV MCH MCHC RDW Plt Count MPV Neut % (Auto) Lymph % (Auto) Clayton % (Auto) Eos % (Auto) Baso % (Auto) Neut # (Auto) Lymph # (Auto) Clayton # (Auto) Eos # (Auto) Baso # (Auto) Sodium 136 Potassium 3.2 L Chloride 110 H Carbon Dioxide 23 Anion Gap 6 L BUN 15 Creatinine 3.4 H Est GFR ( Amer) 19 Est GFR (Non-Af Amer) 16 POC Glucose (mg/dL) 33 L* 34 L* Random Glucose 48 L Calcium 8.0 L Phosphorus 2.6 Magnesium 1.8 Total Bilirubin 0.1 L AST 18 ALT 22 Alkaline Phosphatase 88 Total Creatine Kinase Total Protein 5.0 L Albumin 2.2 L Globulin 2.8 Albumin/Globulin Ratio 0.8 L PTH w/Ion &Tot Calcium ACTH 11/18/17 11/18/17 11/18/17 12:08 13:43 16:38 WBC RBC Hgb Hct MCV MCH MCHC RDW Plt Count MPV Neut % (Auto) Lymph % (Auto) Clayton % (Auto) Eos % (Auto) Baso % (Auto) Neut # (Auto) Lymph # (Auto) Clayton # (Auto) Eos # (Auto) Baso # (Auto) Sodium Potassium Chloride Carbon Dioxide Anion Gap BUN Creatinine Est GFR ( Amer) Est GFR (Non-Af Amer) POC Glucose (mg/dL) 96 100 Random Glucose Calcium Phosphorus Magnesium Total Bilirubin AST ALT Alkaline Phosphatase Total Creatine Kinase 41 Total Protein Albumin Globulin Albumin/Globulin Ratio PTH w/Ion &Tot Calcium ACTH 11/18/17 11/18/17 11/19/17 17:01 21:23 05:21 WBC RBC Hgb Hct MCV MCH MCHC RDW Plt Count MPV Neut % (Auto) Lymph % (Auto) Clayton % (Auto) Eos % (Auto) Baso % (Auto) Neut # (Auto) Lymph # (Auto) Clayton # (Auto) Eos # (Auto) Baso # (Auto) Sodium Potassium Chloride Carbon Dioxide Anion Gap BUN Creatinine Est GFR ( Amer) Est GFR (Non-Af Amer) POC Glucose (mg/dL) 84 124 H 35 L* Random Glucose Calcium Phosphorus Magnesium Total Bilirubin AST ALT Alkaline Phosphatase Total Creatine Kinase Total Protein Albumin Globulin Albumin/Globulin Ratio PTH w/Ion &Tot Calcium ACTH 11/19/17 11/19/17 11/19/17 06:03 09:23 11:14 WBC RBC Hgb Hct MCV MCH MCHC RDW Plt Count MPV Neut % (Auto) Lymph % (Auto) Clayton % (Auto) Eos % (Auto) Baso % (Auto) Neut # (Auto) Lymph # (Auto) Clayton # (Auto) Eos # (Auto) Baso # (Auto) Sodium 139 Potassium 4.0 Chloride 112 H Carbon Dioxide 25 Anion Gap 6 L BUN 11 Creatinine 3.3 H Est GFR ( Amer) 20 Est GFR (Non-Af Amer) 17 POC Glucose (mg/dL) 95 116 H Random Glucose 90 Calcium 7.9 L Phosphorus 2.3 L Magnesium 1.6 Total Bilirubin AST ALT Alkaline Phosphatase Total Creatine Kinase 45 Total Protein Albumin Globulin Albumin/Globulin Ratio PTH w/Ion &Tot Calcium ACTH 11/19/17 11/19/17 11/20/17 16:50 21:23 04:25 WBC 8.2 RBC 2.97 L Hgb 8.5 L Hct 26.0 L MCV 87.5 MCH 28.6 MCHC 32.6 L RDW 13.8 Plt Count 288 MPV Neut % (Auto) Lymph % (Auto) Clayton % (Auto) Eos % (Auto) Baso % (Auto) Neut # (Auto) Lymph # (Auto) Clayton # (Auto) Eos # (Auto) Baso # (Auto) Sodium Potassium Chloride Carbon Dioxide Anion Gap BUN Creatinine Est GFR ( Amer) Est GFR (Non-Af Amer) POC Glucose (mg/dL) 160 H 318 H Random Glucose Calcium Phosphorus Magnesium Total Bilirubin AST ALT Alkaline Phosphatase Total Creatine Kinase Total Protein Albumin Globulin Albumin/Globulin Ratio PTH w/Ion &Tot Calcium ACTH 11/20/17 11/20/17 11/20/17 04:25 05:39 11:01 WBC RBC Hgb Hct MCV MCH MCHC RDW Plt Count MPV Neut % (Auto) Lymph % (Auto) Clayton % (Auto) Eos % (Auto) Baso % (Auto) Neut # (Auto) Lymph # (Auto) Clayton # (Auto) Eos # (Auto) Baso # (Auto) Sodium 136 Potassium 3.8 Chloride 113 H Carbon Dioxide 22 Anion Gap 5 L BUN 11 Creatinine 3.1 H Est GFR ( Amer) 22 Est GFR (Non-Af Amer) 18 POC Glucose (mg/dL) 196 H 294 H Random Glucose 204 H Calcium 7.1 L Phosphorus Magnesium Total Bilirubin AST ALT Alkaline Phosphatase Total Creatine Kinase Total Protein Albumin Globulin Albumin/Globulin Ratio PTH w/Ion &Tot Calcium ACTH Microbiology 11/18/17 10:47 Blood-Thru Central Line Blood Culture - Preliminary NO GROWTH AFTER 48 HOURS 11/15/17 17:00 Blood-Venous Blood Culture - Preliminary NO GROWTH AFTER 4 DAYS 11/17/17 10:35 Stool Stool Culture - Final NO SALMONELLA, SHIGELLA OR CAMPYLOBACTER ISOLATED. 11/15/17 17:33 Blood-Venous S.aureus & Coag-Neg Staph PNA FISH - Final 11/15/17 17:33 Blood-Venous Blood Culture - Final Coagulase Neg Staphylococcus 11/15/17 17:33 Blood-Venous Gram Stain - Final 11/16/17 16:30 Naris MRSA Culture (Admit) - Final MRSA NOT DETECTED 11/13/17 05:20 Urine,Catheterized Urine Culture - Final No Growth (<1,000 CFU/ML) Neurological exam: Alert, Oriented x 3 Assessment and Plan (1) Gastroparesis Status: Acute (2) Intractable vomiting Status: Acute (3) CKD (chronic kidney disease), stage IV Status: Chronic (4) Leukocytosis Status: Acute - Assessment and Plan (Free Text) Assessment: A/P- 27 year old female with TYpe 1DM, gastroparesis, CKD admitted with intarctable vomiting and ? seizures. has remained afebrile for past 3 days. leukocytosis resolved. urine cx- neg Blood cx from 11/15/2017 1 out of 2 bottles- coag neg staph ( most likely contan=minant) c.diff tox and Ag- neg repeat blood cx- neg x 1 stool cx- neg TTE- no vegetations as per report. plan- advise to d/c IV daptomycin as most likley coag neg staph in 1 out of 2 bottles was most likely contaminant. has completed 6 days of IV zosyn and flagyl for ? colitis. d/c all IV abx today. advise to d/c midline. Patient verbalizes full understanding of all above and agrees with above plan of care.
[2017-11-20] MEDS: Insulin Lispro (humaLOG) 100 Units/ml Inj SC SCH ×4 (10:07→22:33)
[2017-11-20] MEDS ORDERED: Insulin Detemir 100 Units/ml Inj SC SCH (22:00)
--- NOTE | 2017-11-20 23:12 | CP.PCM.PN ---
Subjective - Date & Time of Evaluation Date of Evaluation: 11/20/17 Time of Evaluation: 16:00 - Subjective Subjective: 27 yo F w/ pmh of htn, DM w/ gastroparesis, biopsy proven diabetic nephropathy w/ nephrotic syndrome, CKD IV/V, admitted with recurrent gastroparesis flare; Again reports some vomiting today; says that any PO intake makes nausea worse; Objective - Vital Signs/Intake and Output Vital Signs (last 24 hours): Temp Pulse Resp BP Pulse Ox 98.4 F 97 H 20 151/95 H 98 11/20/17 19:42 11/20/17 19:42 11/20/17 19:42 11/20/17 19:42 11/20/17 19:42 - Medications Medications: Current Medications Acetaminophen (Tylenol 325mg Tab) 650 mg PO Q4 PRN PRN Reason: Fever >100.4 F Last Admin: 11/13/17 13:50 Dose: 650 mg Acetaminophen (Tylenol 325mg Tab) 650 mg PO Q4 PRN PRN Reason: Pain, Mild (1-3) Last Admin: 11/17/17 11:04 Dose: 650 mg Amlodipine Besylate (Norvasc) 10 mg PO DAILY [facility] Last Admin: 11/20/17 10:13 Dose: 10 mg Clonidine HCl (Catapres Tts1 0.1 Mg/24 Hr) 1 patch TD Q7D [facility] Last Admin: 11/14/17 18:42 Dose: 1 patch Diphenhydramine HCl (Benadryl) 50 mg IVP Q6 PRN PRN Reason: itching Last Admin: 11/20/17 22:32 Dose: 50 mg Ergocalciferol (Drisdol 50,000 Intl Units Cap) 1 cap PO QWK [facility] Ferrous Sulfate (Feosol) 325 mg PO BID [facility] Last Admin: 11/14/17 09:56 Dose: Not Given Folic Acid (Folic Acid) 1 mg PO DAILY [facility] Last Admin: 11/14/17 09:57 Dose: Not Given Iron Sucrose 100 mg/ Sodium (Chloride) 105 mls @ 105 mls/hr IVPB DAILY [facility] Last Admin: 11/17/17 10:05 Dose: 105 mls/hr Insulin Detemir (Levemir) 8 units SC HS [facility] Last Admin: 11/20/17 22:34 Dose: 8 units Insulin Human Lispro (Humalog) 0 units SC ACHS [facility] Last Admin: 11/20/17 22:33 Dose: 6 units Labetalol HCl (Trandate) 20 mg IVP Q4H PRN PRN Reason: Systolic Blood Pressure Last Admin: 11/20/17 06:13 Dose: 20 mg Metoclopramide HCl (Reglan) 5 mg IVP Q6H [facility] Last Admin: 11/20/17 22:33 Dose: 5 mg Metoprolol Tartrate (Lopressor) 5 mg IVP Q6 PRN PRN Reason: for sys b/p >180 or d b/p>110 Last Admin: 11/20/17 15:32 Dose: 5 mg Ondansetron HCl (Zofran Odt) 4 mg PO Q8H PRN PRN Reason: Nausea/Vomiting Last Admin: 11/14/17 04:29 Dose: 4 mg Ondansetron HCl (Zofran Inj) 4 mg IVP Q6 PRN PRN Reason: Nausea/Vomiting Last Admin: 11/20/17 00:47 Dose: 4 mg Pantoprazole Sodium (Protonix Inj) 40 mg IVP DAILY [facility] Last Admin: 11/20/17 10:13 Dose: 40 mg Sertraline HCl (Zoloft) 25 mg PO DAILY@2200 [facility] Last Admin: 11/20/17 22:32 Dose: 25 mg - Labs Labs: 11/20/17 04:25 11/20/17 04:25 Assessment and Plan (1) SIRS (systemic inflammatory response syndrome) Assessment & Plan: Leukocytosis resolved; repeat blood culture negative; antibiotics discontinued by ID; need to d/c PICC line as soon as possible (although venous access very difficult); Status: Acute (2) NICKI (acute kidney injury) Assessment & Plan: NICKI resolved, pre-renal etiology in the setting of GI losses; continue IVF for now; monitor electrolytes daily for now; Status: Chronic (3) Gastroparesis Status: Acute (4) Anemia in CKD (chronic kidney disease) Assessment & Plan: Hgb below goal; given EPO earlier this week; will restart IV iron now that blood culture negative; Status: Chronic (5) Hypertensive CKD (chronic kidney disease) Assessment & Plan: Unclear why BP so erratic; on clonidine patch; finally took PO amlodipine; continue; Status: Chronic
[2017-11-21] MEDS: Metoprolol 1 mg/ml Inj IVP PRN ×2 (00:49→19:09)
--- NOTE | 2017-11-21 02:15 | PN ---
DATE: 11/20/2017 ENDOCRINOLOGY FOLLOWUP NOTE LOCATION: Room 414. SUBJECTIVE: This is a 27-year-old female with recent uncontrolled type 1 insulin-dependent diabetes with extremes of glycemic fluctuations and currently still on a liquid diet with variable oral intake as noted. Her glycemic fluctuations are still there as expected with glucose values ranging from 196 to 318 mg/dL. LABORATORY DATA: Her latest chemistry showed a BUN of 11, sodium 136, potassium 3.8, chloride 113, CO2 of 22, glucose 204, and creatinine 3.1. So at this time, we will modify once again her basal insulin to a higher regimen of Levemir given as 8 units subcu at bedtime daily to start tonight as ordered. We will continue the low-dose correction scale using Humalog insulin as given. We will obtain serial chemistries and supplement accordingly as needed. We will follow. Yamileth Charles MD
[2017-11-21] MEDS: DiphenhydrAMINE 50 mg/ml Inj IVP PRN ×3 (05:56→21:39)
[2017-11-21] MEDS: Insulin Lispro (humaLOG) 100 Units/ml Inj SC SCH ×6 (07:40→21:36)
--- NOTE | 2017-11-21 12:37 | PN ---
DATE: 11/21/2017 ENDO FOLLOWUP NOTE LOCATION: In room 414. HISTORY OF PRESENT ILLNESS: This is a 27-year-old female with recent uncontrolled type 1 insulin-dependent diabetes with now worsening glycemic fluctuations as her oral intake has improved accordingly. Her glucose levels overnight have ranged from 365-423 mg per dL. It was 253-294 yesterday from lunchtime and onwards as noted. Her chemistry shows a BUN of 11, sodium 136, potassium 3.8, chloride 113, CO2 of 22, glucose 204, and creatinine 3.1. So at this time, we will modify once again her basal and bolus insulin regimen and actually start to add a low dose of prandial insulin with Humalog given as 30 units subcutaneous t.i.d. before meals to start today as ordered. We will also modify her basal insulin and increase the Levemir to 10 units subcutaneous at bedtime daily as given. We will titrate incrementally as indicated to optimize metabolic control. We will follow with you. Yamileth Charles MD
--- NOTE | 2017-11-21 19:59 | CP.PCM.PN ---
Subjective - Date & Time of Evaluation Date of Evaluation: 11/21/17 Time of Evaluation: 18:00 - Subjective Subjective: SEEN ON RENAL F/U IN COVERAGE OF DR SALTER FEELS MUCH BETTER CLICICALLY WELL RENALLY IMPROVING Objective - Vital Signs/Intake and Output Vital Signs (last 24 hours): Temp Pulse Resp BP Pulse Ox 98.1 F 101 H 20 165/120 H 100 11/21/17 15:51 11/21/17 19:09 11/21/17 15:51 11/21/17 19:09 11/21/17 15:51 - Medications Medications: Current Medications Acetaminophen (Tylenol 325mg Tab) 650 mg PO Q4 PRN PRN Reason: Fever >100.4 F Last Admin: 11/13/17 13:50 Dose: 650 mg Acetaminophen (Tylenol 325mg Tab) 650 mg PO Q4 PRN PRN Reason: Pain, Mild (1-3) Last Admin: 11/17/17 11:04 Dose: 650 mg Amlodipine Besylate (Norvasc) 10 mg PO DAILY [facility] Last Admin: 11/21/17 11:03 Dose: 10 mg Clonidine HCl (Catapres Tts1 0.1 Mg/24 Hr) 1 patch TD Q7D [facility] Last Admin: 11/21/17 17:10 Dose: 1 patch Diphenhydramine HCl (Benadryl) 50 mg IVP Q6 PRN PRN Reason: itching Last Admin: 11/21/17 12:08 Dose: 50 mg Ergocalciferol (Drisdol 50,000 Intl Units Cap) 1 cap PO QWK [facility] Ferrous Sulfate (Feosol) 325 mg PO BID [facility] Last Admin: 11/14/17 09:56 Dose: Not Given Folic Acid (Folic Acid) 1 mg PO DAILY [facility] Last Admin: 11/14/17 09:57 Dose: Not Given Iron Sucrose 100 mg/ Sodium (Chloride) 105 mls @ 105 mls/hr IVPB DAILY [facility] Last Admin: 11/21/17 12:29 Dose: 105 mls/hr Insulin Detemir (Levemir) 10 units SC HS [facility] Insulin Human Lispro (Humalog) 0 units SC ACHS [facility] Last Admin: 11/21/17 16:48 Dose: Not Given Insulin Human Lispro (Humalog) 3 units SC AC [facility] Last Admin: 11/21/17 16:49 Dose: 3 units Labetalol HCl (Trandate) 20 mg IVP Q4H PRN PRN Reason: Systolic Blood Pressure Last Admin: 11/20/17 06:13 Dose: 20 mg Metoclopramide HCl (Reglan) 5 mg IVP Q6H [facility] Last Admin: 11/21/17 16:59 Dose: 5 mg Metoprolol Tartrate (Lopressor) 5 mg IVP Q6 PRN PRN Reason: for sys b/p >180 or d b/p>110 Last Admin: 11/21/17 19:09 Dose: 5 mg Ondansetron HCl (Zofran Odt) 4 mg PO Q8H PRN PRN Reason: Nausea/Vomiting Last Admin: 11/14/17 04:29 Dose: 4 mg Ondansetron HCl (Zofran Inj) 4 mg IVP Q6 PRN PRN Reason: Nausea/Vomiting Last Admin: 11/20/17 00:47 Dose: 4 mg Sertraline HCl (Zoloft) 25 mg PO DAILY@2200 [facility] Last Admin: 11/20/17 22:32 Dose: 25 mg - Labs Labs: 11/20/17 04:25 11/20/17 04:25 Assessment and Plan - Assessment and Plan (Free Text) Assessment: A ON CKD .. RENAL FUNCTION BETTER ELECTROLYTES ABN .. NOW BETTER \ MMP P : C/O CURRENT CARE C/O PRESENT MANAGEMENT
[2017-11-21] MEDS: Insulin Detemir 100 Units/ml Inj SC SCH (21:38)
[2017-11-22] MEDS: DiphenhydrAMINE 50 mg/ml Inj IVP PRN ×2 (05:50→18:22)
[2017-11-22] MEDS: Insulin Lispro (humaLOG) 100 Units/ml Inj SC SCH ×7 (06:48→21:59)
--- NOTE | 2017-11-22 18:50 | PN ---
DATE: 11/22/2017 ENDO FOLLOWUP NOTE LOCATION: In room 414. SUBJECTIVE: This is a 27-year-old female with recent uncontrolled type 1 insulin-dependent diabetes, now being followed closely for metabolic management. She will remain liquid diet with persistent and intermittent dyspepsia, nausea and upper abdominal pain as noted. LABORATORY DATA: Her glucose levels overnight have improved, still fluctuating and have ranged from 134 to 304 mg/dL. Her bedtime glucose was 229 mg/dL. Her chemistry showed a BUN of 11, sodium 136, potassium 3.8, chloride 113, CO2 of 22, glucose , and creatinine 3.1. ASSESSMENT AND PLAN: So at this time, we will still continue the same basal and bolus insulin regimen to allow for dose equilibration and she is on liquid diet and as her oral intake improves, then we can titrate insulin dose regimen to optimize insulin requirements. We will continue the Levemir given as 10 units subcutaneously at bedtime daily as ordered. We will also continue the Humalog or Novolog given as 6 units subcutaneously t.i.d. before meals as ordered. We will titrate incrementally as indicated to optimize metabolic control. We will obtain serial chemistries and supplement accordingly as needed. We will follow. Yamileth Charles MD
--- NOTE | 2017-11-22 20:40 | CP.PCM.PN ---
Subjective - Date & Time of Evaluation Date of Evaluation: 11/21/17 Time of Evaluation: 13:00 Objective - Vital Signs/Intake and Output Vital Signs (last 24 hours): Temp Pulse Resp BP Pulse Ox 97.3 F L 89 18 143/93 H 98 11/22/17 15:59 11/22/17 15:59 11/22/17 15:59 11/22/17 15:59 11/22/17 15:59 Intake and Output: 11/22/17 11/23/17 18:59 06:59 Intake Total 1300 Balance 1300 - Medications Medications: Current Medications Acetaminophen (Tylenol 325mg Tab) 650 mg PO Q4 PRN PRN Reason: Fever >100.4 F Last Admin: 11/13/17 13:50 Dose: 650 mg Acetaminophen (Tylenol 325mg Tab) 650 mg PO Q4 PRN PRN Reason: Pain, Mild (1-3) Last Admin: 11/17/17 11:04 Dose: 650 mg Amlodipine Besylate (Norvasc) 10 mg PO DAILY [facility] Last Admin: 11/22/17 09:56 Dose: 10 mg Clonidine HCl (Catapres Tts1 0.1 Mg/24 Hr) 1 patch TD Q7D [facility] Last Admin: 11/21/17 17:10 Dose: 1 patch Diphenhydramine HCl (Benadryl) 50 mg IVP Q6 PRN PRN Reason: itching Last Admin: 11/22/17 18:22 Dose: 50 mg Ergocalciferol (Drisdol 50,000 Intl Units Cap) 1 cap PO QWK [facility] Ferrous Sulfate (Feosol) 325 mg PO BID [facility] Last Admin: 11/14/17 09:56 Dose: Not Given Folic Acid (Folic Acid) 1 mg PO DAILY [facility] Last Admin: 11/14/17 09:57 Dose: Not Given Iron Sucrose 100 mg/ Sodium (Chloride) 105 mls @ 105 mls/hr IVPB DAILY [facility] Last Admin: 11/22/17 09:55 Dose: 105 mls/hr Insulin Detemir (Levemir) 10 units SC HS [facility] Last Admin: 11/21/17 21:38 Dose: 10 u Insulin Human Lispro (Humalog) 0 units SC ACHS [facility] Last Admin: 11/22/17 17:12 Dose: 5 units Insulin Human Lispro (Humalog) 3 units SC AC [facility] Last Admin: 11/22/17 17:12 Dose: 3 units Labetalol HCl (Trandate) 20 mg IVP Q4H PRN PRN Reason: Systolic Blood Pressure Last Admin: 11/20/17 06:13 Dose: 20 mg Metoclopramide HCl (Reglan) 5 mg IVP Q6H [facility] Last Admin: 11/22/17 17:13 Dose: 5 mg Metoprolol Tartrate (Lopressor) 5 mg IVP Q6 PRN PRN Reason: for sys b/p >180 or d b/p>110 Last Admin: 11/21/17 19:09 Dose: 5 mg Ondansetron HCl (Zofran Odt) 4 mg PO Q8H PRN PRN Reason: Nausea/Vomiting Last Admin: 11/14/17 04:29 Dose: 4 mg Ondansetron HCl (Zofran Inj) 4 mg IVP Q6 PRN PRN Reason: Nausea/Vomiting Last Admin: 11/20/17 00:47 Dose: 4 mg Sertraline HCl (Zoloft) 25 mg PO DAILY@2200 [facility] Last Admin: 11/21/17 22:03 Dose: 25 mg - Labs Labs: 11/20/17 04:25 11/20/17 04:25 Assessment and Plan (1) Acute on chronic renal failure Status: Acute (2) Diabetes mellitus with hyperglycemia, with long-term current use of insulin Status: Acute (3) Seizure Status: Acute (4) Colitis Status: Acute
--- NOTE | 2017-11-22 20:42 | CP.PCM.PN ---
Subjective - Date & Time of Evaluation Date of Evaluation: 11/22/17 Time of Evaluation: 13:15 - Subjective Subjective: Seen and examined at the bed side. Tolerating diet well. No new complaint. No Growth on Blood culture. Objective - Vital Signs/Intake and Output Vital Signs (last 24 hours): Temp Pulse Resp BP Pulse Ox 97.3 F L 89 18 143/93 H 98 11/22/17 15:59 11/22/17 15:59 11/22/17 15:59 11/22/17 15:59 11/22/17 15:59 Intake and Output: 11/22/17 11/23/17 18:59 06:59 Intake Total 1300 Balance 1300 - Medications Medications: Current Medications Acetaminophen (Tylenol 325mg Tab) 650 mg PO Q4 PRN PRN Reason: Fever >100.4 F Last Admin: 11/13/17 13:50 Dose: 650 mg Acetaminophen (Tylenol 325mg Tab) 650 mg PO Q4 PRN PRN Reason: Pain, Mild (1-3) Last Admin: 11/17/17 11:04 Dose: 650 mg Amlodipine Besylate (Norvasc) 10 mg PO DAILY [facility] Last Admin: 11/22/17 09:56 Dose: 10 mg Clonidine HCl (Catapres Tts1 0.1 Mg/24 Hr) 1 patch TD Q7D [facility] Last Admin: 11/21/17 17:10 Dose: 1 patch Diphenhydramine HCl (Benadryl) 50 mg IVP Q6 PRN PRN Reason: itching Last Admin: 11/22/17 18:22 Dose: 50 mg Ergocalciferol (Drisdol 50,000 Intl Units Cap) 1 cap PO QWK [facility] Ferrous Sulfate (Feosol) 325 mg PO BID [facility] Last Admin: 11/14/17 09:56 Dose: Not Given Folic Acid (Folic Acid) 1 mg PO DAILY [facility] Last Admin: 11/14/17 09:57 Dose: Not Given Iron Sucrose 100 mg/ Sodium (Chloride) 105 mls @ 105 mls/hr IVPB DAILY [facility] Last Admin: 11/22/17 09:55 Dose: 105 mls/hr Insulin Detemir (Levemir) 10 units SC HS [facility] Last Admin: 11/21/17 21:38 Dose: 10 u Insulin Human Lispro (Humalog) 0 units SC ACHS [facility] Last Admin: 10/07/18 17:12 Dose: 5 units Insulin Human Lispro (Humalog) 3 units SC AC [facility] Last Admin: 11/22/17 17:12 Dose: 3 units Labetalol HCl (Trandate) 20 mg IVP Q4H PRN PRN Reason: Systolic Blood Pressure Last Admin: 11/20/17 06:13 Dose: 20 mg Metoclopramide HCl (Reglan) 5 mg IVP Q6H [facility] Last Admin: 11/22/17 17:13 Dose: 5 mg Metoprolol Tartrate (Lopressor) 5 mg IVP Q6 PRN PRN Reason: for sys b/p >180 or d b/p>110 Last Admin: 11/21/17 19:09 Dose: 5 mg Ondansetron HCl (Zofran Odt) 4 mg PO Q8H PRN PRN Reason: Nausea/Vomiting Last Admin: 11/14/17 04:29 Dose: 4 mg Ondansetron HCl (Zofran Inj) 4 mg IVP Q6 PRN PRN Reason: Nausea/Vomiting Last Admin: 11/20/17 00:47 Dose: 4 mg Sertraline HCl (Zoloft) 25 mg PO DAILY@2200 [facility] Last Admin: 11/21/17 22:03 Dose: 25 mg - Labs Labs: 11/20/17 04:25 11/20/17 04:25 - Constitutional Appears: Well - Head Exam Head Exam: ATRAUMATIC, NORMAL INSPECTION, NORMOCEPHALIC - Eye Exam Eye Exam: EOMI, Normal appearance, PERRL Pupil Exam: NORMAL ACCOMODATION, PERRL - ENT Exam ENT Exam: Mucous Membranes Moist, Normal Exam - Neck Exam Neck Exam: Full ROM, Normal Inspection. absent: Lymphadenopathy - Respiratory Exam Respiratory Exam: Clear to Ausculation Bilateral, NORMAL BREATHING PATTERN - Cardiovascular Exam Cardiovascular Exam: REGULAR RHYTHM, +S1, +S2. absent: Murmur - GI/Abdominal Exam GI & Abdominal Exam: Soft, Normal Bowel Sounds. absent: Tenderness - Exam Bimanual exam: NORMAL BIMANUAL EXAM - Extremities Exam Extremities Exam: Full ROM, Normal Capillary Refill, Normal Inspection. absent: Joint Swelling, Pedal Edema - Back Exam Back Exam: NORMAL INSPECTION - Neurological Exam Neurological Exam: Alert, Awake, CN II-XII Intact, Normal Gait, Oriented x3 - Psychiatric Exam Psychiatric exam: Normal Affect, Normal Mood - Skin Skin Exam: Dry, Intact, Normal Color, Warm Assessment and Plan (1) Acute on chronic renal failure Assessment & Plan: Improved Status: Acute (2) Diabetes mellitus with hyperglycemia, with long-term current use of insulin Assessment & Plan: Continue Current Care Diet education. Status: Acute (3) Seizure Assessment & Plan: Most Likely Malingering as patient admitted Status: Chronic (4) Colitis Assessment & Plan: Completed Abx Status: Resolved
[2017-11-22] MEDS: Insulin Detemir 100 Units/ml Inj SC SCH (21:58)
[2017-11-23] MEDS: DiphenhydrAMINE 50 mg/ml Inj IVP PRN ×2 (00:17→06:54)
[2017-11-23 05:41] VITALS: O2SAT 100
[2017-11-23 09:27] VITALS: TEMP 98
[2017-11-23] MEDS: Insulin Lispro (humaLOG) 100 Units/ml Inj SC SCH ×4 (09:55→14:00)
--- NOTE | 2017-11-23 12:51 | CP.PCM.PCO ---
Assessment and Plan - Assessment and Plan (Free Text) Assessment: Patient seen and examined this morning vital signs stable Denies chest pain, shortness of breath, nausea or vomiting. Discussed with Dr Santos, patient for dc this afternoon to home Patient advised to check her sugars ac & hs and as needed Follow up with Dr Martines for her ckd and her PMD for blood pressure control, diabetic management Diabetic education provided.
--- NOTE | 2017-11-23 15:12 | CP.PCM.PCO ---
Assessment/Plan - Assessment and Plan (Free Text) Assessment: Midline discontinued, pt for dc. has all her meds at home, including rx for zofran, insulin. Discussed with patient and mom at bedside.
[2017-11-23 15:57] VITALS: BP 134/93; PULSE 102; RESP 17
--- NOTE | 2017-11-23 17:23 | PN ---
DATE: 11/23/2017 ENDO FOLLOWUP NOTE LOCATION: In room 414. SUBJECTIVE: This is a 27-year-old female with recent uncontrolled type 1 insulin-dependent diabetes, presenting here with diabetic gastroparesis exacerbation and is now being followed closely for metabolic management. Her oral intake remains very poor and suboptimal at this time and her glucose values are fluctuating, but improved and the glucose levels have ranged from 134 to 304 and 229 mg/dL. ASSESSMENT AND PLAN: So at this time, we will once again modify her basal and bolus insulin regimen and increase the Humalog to 4 units subcutaneously t.i.d. before meals as ordered. We will continue the basal insulin given as 10 units subcutaneously at bedtime daily as ordered. We will titrate incrementally as indicated to optimize metabolic control. We will obtain serial chemistries and supplement accordingly as needed. We will follow. Yamileth Charles MD
[2017-11-23] MEDS ORDERED: Insulin Detemir 100 Units/ml Inj SC SCH (22:00)
--- NOTE | 2017-11-23 22:23 | CP.PCM.DIS ---
Provider - Provider Date of Admission: 11/14/17 16:00 Attending physician: Enrique Santos MD Time Spent in preparation of Discharge (in minutes): 25 Diagnosis - Discharge Diagnosis (1) Acute on chronic renal failure Status: Acute Priority: High (2) Diabetes mellitus with hyperglycemia, with long-term current use of insulin Status: Acute Priority: High (3) Seizure Status: Chronic Priority: High (4) Colitis Status: Resolved Priority: High (5) Altered mental status Status: Acute (6) Gastroparesis Status: Acute (7) Hypokalemia Status: Acute (8) Intractable abdominal pain Status: Acute (9) Intractable vomiting Status: Acute (10) Hypoglycemia associated with diabetes Status: Resolved Priority: Medium (11) Sepsis Status: Acute Priority: Medium Comment: [facility] Hospital Course - Lab Results Lab Results: Micro Results 11/18/17 10:47 Blood-Thru Central Line Blood Culture - Final NO GROWTH AFTER 5 DAYS 11/18/17 10:47 Blood-Thru Central Line Gram Stain - Final TEST NOT PERFORMED 11/15/17 17:00 Blood-Venous Blood Culture - Final NO GROWTH AFTER 5 DAYS 11/17/17 10:35 Stool Stool Culture - Final NO SALMONELLA, SHIGELLA OR CAMPYLOBACTER ISOLATED. 11/15/17 17:33 Blood-Venous S.aureus & Coag-Neg Staph PNA FISH - Final 11/15/17 17:33 Blood-Venous Blood Culture - Final Coagulase Neg Staphylococcus 11/15/17 17:33 Blood-Venous Gram Stain - Final 11/16/17 16:30 Naris MRSA Culture (Admit) - Final MRSA NOT DETECTED 11/13/17 05:20 Urine,Catheterized Urine Culture - Final No Growth (<1,000 CFU/ML) Most Recent Lab Values WBC 8.2 K/uL (4.8-10.8) 11/20/17 04:25 RBC 2.97 Mil/uL (3.80-5.20) L 11/20/17 04:25 Hgb 8.5 g/dL (12.0-16.0) L 11/20/17 04:25 Hct 26.0 % (34.0-47.0) L 11/20/17 04:25 MCV 87.5 fl (81.0-99.0) 11/20/17 04:25 MCH 28.6 pg (27.0-31.0) 11/20/17 04:25 MCHC 32.6 g/dL (33.0-37.0) L 11/20/17 04:25 RDW 13.8 % (11.5-14.5) 11/20/17 04:25 Plt Count 288 K/uL (130-400) 11/20/17 04:25 MPV 9.4 fl (7.2-11.7) 11/18/17 10:47 Neut % (Auto) 68.4 % (50.0-75.0) 11/18/17 10:47 Lymph % (Auto) 22.0 % (20.0-40.0) 11/18/17 10:47 Cannon % (Auto) 7.5 % (0.0-10.0) 11/18/17 10:47 Eos % (Auto) 1.3 % (0.0-4.0) 11/18/17 10:47 Baso % (Auto) 0.8 % (0.0-2.0) 11/18/17 10:47 Neut # (Auto) 5.5 K/uL (1.8-7.0) 11/18/17 10:47 Lymph # (Auto) 1.8 K/uL (1.0-4.3) 11/18/17 10:47 Cannon # (Auto) 0.6 K/uL (0.0-0.8) 11/18/17 10:47 Eos # (Auto) 0.1 K/uL (0.0-0.7) 11/18/17 10:47 Baso # (Auto) 0.1 K/uL (0.0-0.2) 11/18/17 10:47 Neutrophils % (Manual) 81 % (42-75) H 11/14/17 05:35 Band Neutrophils % 4 % (0-2) H 11/12/17 20:55 Lymphocytes % (Manual) 14 % (20-50) L 11/14/17 05:35 Monocytes % (Manual) 5 % (0-10) 11/14/17 05:35 Platelet Estimate Slightly increased (NORMAL) H 11/14/17 05:35 Large Platelets Present 11/14/17 05:35 Hypochromasia (manual) Slight 11/14/17 05:35 Anisocytosis (manual) Slight 11/12/17 20:55 pCO2 37 mm/Hg (35-45) 11/14/17 20:43 pO2 89 mm/Hg (80-100) 11/14/17 20:43 HCO3 26.9 mmol/L (21-28) 11/14/17 20:43 ABG pH 7.46 (7.35-7.45) H 11/14/17 20:43 ABG Total CO2 27.4 mmol/L (22-28) 11/14/17 20:43 ABG O2 Saturation 97.6 % (95-98) 11/14/17 20:43 ABG Base Excess 2.5 mmol/L (-2.0-3.0) 11/14/17 20:43 José Miguel Test Yes 11/14/17 20:43 ABG Potassium 4.1 mmol/L (3.6-5.2) 11/14/17 20:43 A-a O2 Difference 14.0 mm/Hg 11/14/17 20:43 Sodium 136.0 mmol/L (132-148) 11/14/17 20:43 Chloride 104.0 mmol/L (98-107) 11/14/17 20:43 Glucose 247 mg/dL (65-105) H 11/14/17 20:43 Lactate 0.8 mmol/L (0.7-2.1) 11/14/17 20:43 FiO2 21.0 % 11/14/17 20:43 Crit Value Called To Evelyne zepeda md 11/13/17 03:45 Crit Value Called By 302 11/13/17 03:45 Crit Value Read Back Y 11/13/17 03:45 Blood Gas Notified Time 353 11/13/17 03:45 Sodium 136 mmol/l (132-148) 11/20/17 04:25 Potassium 3.8 MMOL/L (3.6-5.0) 11/20/17 04:25 Chloride 113 mmol/L (98-107) H 11/20/17 04:25 Carbon Dioxide 22 mmol/L (22-30) 11/20/17 04:25 Anion Gap 5 (10-20) L 11/20/17 04:25 BUN 11 mg/dl (7-17) 11/20/17 04:25 Creatinine 3.1 mg/dl (0.7-1.2) H 11/20/17 04:25 Est GFR ( Amer) 22 11/20/17 04:25 Est GFR (Non-Af Amer) 18 11/20/17 04:25 POC Glucose (mg/dL) 365 mg/dL (65-110) H 11/23/17 11:53 Random Glucose 204 mg/dL (65-105) H 11/20/17 04:25 Hemoglobin A1c 8.3 % (4.2-6.5) H 11/15/17 06:29 Lactic Acid 1.3 MMOL/L (0.7-2.1) 11/15/17 17:00 Calcium 7.1 mg/dL (8.4-10.2) L 11/20/17 04:25 Phosphorus 2.3 mg/dl (2.5-4.5) L 11/19/17 09:23 Magnesium 1.6 MG/DL (1.6-2.3) 11/19/17 09:23 Iron 24 ug/dL (37-170) L 11/15/17 06:29 TIBC 171 ug/dL (250-450) L 11/15/17 06:29 % Saturation 14 % (20-55) L 11/15/17 06:29 Ferritin 140.0 ng/Ml (6.24-137.0) H 11/15/17 06:29 Total Bilirubin 0.1 mg/dl (0.2-1.3) L 11/18/17 10:47 AST 18 U/L (14-36) 11/18/17 10:47 ALT 22 U/L (9-52) 11/18/17 10:47 Alkaline Phosphatase 88 U/L (38-126) 11/18/17 10:47 Total Creatine Kinase 45 U/L (30-135) 11/19/17 09:23 Total Protein 5.0 G/DL (6.3-8.2) L 11/18/17 10:47 Albumin 2.2 g/dL (3.5-5.0) L 11/18/17 10:47 Globulin 2.8 gm/dL (2.2-3.9) 11/18/17 10:47 Albumin/Globulin Ratio 0.8 (1.0-2.1) L 11/18/17 10:47 25-OH Vitamin D Total < 12.8 NG/ML (30.0-100.0) L 11/17/17 12:00 TSH 3rd Generation 1.67 mIU/ML (0.46-4.68) 11/15/17 06:29 FSH 3rd Generation 1.0 mIU/mL 11/17/17 04:20 Prolactin 164.2 ng/mL (3.0-18.9) H 11/15/17 18:30 Beta HCG, Quant < 2.39 mIU/mL 11/12/17 20:55 Calcium (PTH Intact) 7.8 mg/dL (8.6-10.2) L 11/17/17 12:00 PTH w/Ion &Tot Calcium 76 pg/mL (14-64) H 11/17/17 12:00 ACTH 14 pg/mL (6-50) 11/17/17 04:20 Arterial Blood Potassium 4.1 mmol/L (3.6-5.2) 11/14/17 20:43 Urine Color Yellow (YELLOW) 11/15/17 17:00 Urine Clarity Slighty-cloudy (Clear) 11/15/17 17:00 Urine pH 6.0 (5.0-8.0) 11/15/17 17:00 Ur Specific Mission 1.021 (1.003-1.030) 11/15/17 17:00 Urine Protein >=500 mg/dL (NEGATIVE) 11/15/17 17:00 Urine Glucose (UA) >=500 mg/dL (Normal) 11/15/17 17:00 Urine Ketones 20 mg/dL (NEGATIVE) 11/15/17 17:00 Urine Blood Small (NEGATIVE) 11/15/17 17:00 Urine Nitrate Negative (NEGATIVE) 11/15/17 17:00 Urine Bilirubin Negative (NEGATIVE) 11/15/17 17:00 Urine Urobilinogen 0.2-1.0 mg/dL (0.2-1.0) 11/15/17 17:00 Ur Leukocyte Esterase Trace Rajiv/uL (Negative) 11/15/17 17:00 Urine RBC (Auto) 5 /hpf (0-3) H 11/15/17 17:00 Urine Microscopic WBC 6 /hpf (0-5) H 11/15/17 17:00 Ur Squamous Epith Cells < 1 /hpf (0-5) 11/15/17 17:00 Amorphous Sediment Occ /ul (<OCC) H 11/13/17 05:20 Urine Bacteria Rare (<OCC) 11/15/17 17:00 Hyaline Casts 0-2 /hpf (0-2) 11/13/17 05:20 B-Hydroxybutyrate 0.29 mM (0.02-0.27) H 11/15/17 15:30 C. difficile Ag & Toxin Negative (NEGATIVE) 11/15/17 10:35 Discharge Exam - Head Exam Head Exam: ATRAUMATIC, NORMAL INSPECTION, NORMOCEPHALIC Discharge Plan - Discharge Medications Prescriptions: RX: cloNIDine 0.1 mg/24 hr [catapres TTS1 0.1 mg/24 hr] 1 patch TD Q7D #30 patch - Follow Up Plan Condition: STABLE Disposition: HOME/ ROUTINE Instructions: Nausea and Vomiting, Adult (DC), Gastroparesis (Delayed Gastric Emptying) (DC), Renal Failure Diet (DC), Altered Mental Status (GEN), Kidney Failure, Type 2 Diabetes, Adjustment Disorder, Altered Mental Status Additional Instructions: follow up with in 1 week Referrals: Darryl Chou MD [Medical Doctor] - Musa Martines MD [Staff Provider] -
== END 2017-11-23 15:40 | disposition home or self-care (01) | DRG 533 ==
LOC: H.ER 19:39 → UNDOADMOB 11-13 02:27 → H.ERHOLD 11-13 02:27 → H.TEL 11-13 06:03 → OBSVTOIN 11-14 16:00 → H.TEL 11-15 10:35 → H.ICU/CCU 11-16 11:03 → H.TEL 11-16 13:05
PROVIDERS: ADMIT Internal Medicine; ATTEND Internal Medicine
PROC: 05H533Z Insertion of Infusion Device into Right Subclavian Vein, Percutaneous Approach (ICD-10-PCS; principal; 2017-11-13)
PROC: B516ZZA Fluoroscopy of Right Subclavian Vein, Guidance (ICD-10-PCS; 2017-11-13)
DX: E10.43 Type 1 diabetes mellitus with diabetic autonomic (poly)neuropathy (principal); K31.84 Gastroparesis; N17.9 Acute kidney failure, unspecified; R65.10 Systemic inflammatory response syndrome (SIRS) of non-infectious origin without acute organ dysfunction; E10.21 Type 1 diabetes mellitus with diabetic nephropathy; N18.4 Chronic kidney disease, stage 4 (severe); F06.31 Mood disorder due to known physiological condition with depressive features; E10.319 Type 1 diabetes mellitus with unspecified diabetic retinopathy without macular edema; E87.6 Hypokalemia; E10.22 Type 1 diabetes mellitus with diabetic chronic kidney disease; I12.9 Hypertensive chronic kidney disease with stage 1 through stage 4 chronic kidney disease, or unspecified chronic kidney disease; E10.65 Type 1 diabetes mellitus with hyperglycemia; F44.5 Conversion disorder with seizures or convulsions; Z79.4 Long term (current) use of insulin; K52.9 Noninfective gastroenteritis and colitis, unspecified; D63.1 Anemia in chronic kidney disease; Z96.41 Presence of insulin pump (external) (internal)

== ENCOUNTER 2017-12-22 09:42 | Inpatient (IN) | payer MEDICAID ==
[2017-12-22 09:42] VITALS: BMI 29.2
[2017-12-22] MEDS ORDERED: Glucagon Recombinant 1 mg Inj ONE (09:56)
[2017-12-22] MEDS ORDERED: Dextrose 50% SYRINGE Inj (50 ml) ONE (10:02)
--- NOTE | 2017-12-22 10:13 | ED PDOC ---
HPI: General Adult Time Seen by Provider: 12/22/17 09:46 Chief Complaint (Nursing): Altered Mental Status Chief Complaint (Provider): Hypoglycemia History Per: Patient, EMS, Family History/Exam Limitations: no limitations Onset/Duration Of Symptoms: Days (2) Current Symptoms Are (Timing): Still Present Additional History Per: Patient Additional Complaint(s): Pt. with low blood sugar noted today at home (76 sugar). For 2 days having nausea, vomit, nonbloody. Also with abd pain. Vomiting and abd pain is similar to previous episodes of gastroparesis. No chest pain, dyspnea, back pain, headaches. Has light-headedness and weakness all over. No numbness, tingles. No neck pain. No vision changes. Past Medical History Reviewed: Nursing Documentation, Vital Signs Vital Signs: Last Vital Signs Temp 98.6 F 12/22/17 09:46 Pulse 127 H 12/22/17 09:46 Resp 21 12/22/17 09:46 BP 192/116 H 12/22/17 09:46 Pulse Ox 98 12/22/17 09:46 - Medical History PMH: Anemia, Bronchitis, Diabetes (Type I), HTN, Chronic Kidney Disease Denies: HIV Other PMH: gastroparesis - Surgical History Surgical History: No Surg Hx - Family History Family History: States: Unknown Family Hx - Living Arrangements Living Arrangements: With Family - Social History Current smoker - smoking cessation education provided: No Alcohol: None Drugs: Denies - Home Medications Home Medications: Ambulatory Orders Medication Instructions Recorded Insulin Lispro [humALOG] 8 unit SC ACTID 11/04/17 Liraglutide [Victoza 2-Ángel] 0.6 mg SC DAILY 11/04/17 Metoclopramide [Reglan] 10 mg PO Q8 PRN 11/04/17 amLODIPine [Norvasc] 5 mg PO DAILY 11/04/17 Ondansetron ODT [Zofran ODT] 4 mg PO Q8H PRN #20 odt 11/09/17 cloNIDine 0.1 mg/24 hr [catapres 1 patch TD Q7D #30 patch 11/23/17 TTS1 0.1 mg/24 hr] Insulin Glargine,Hum.rec.anlog 13 unit SC HS 12/22/17 [Basaglar Kwikpen U-100] Torsemide [Demadex] 5 mg PO DAILY 12/22/17 - Allergies Allergies/Adverse Reactions: Allergies Allergy/AdvReac Type Severity Reaction Status Date / Time No Known Allergies Allergy Verified 12/22/17 09:52 Review of Systems ROS Statement: Except As Marked, All Systems Reviewed And Found Negative Constitutional: Positive for: Weakness Gastrointestinal: Positive for: Nausea, Vomiting, Abdominal Pain Neurological: Positive for: Weakness Physical Exam - Reviewed Nursing Documentation Reviewed: Yes Vital Signs Reviewed: Yes - Physical Exam Appears: Positive for: In Acute Distress Head Exam: Positive for: ATRAUMATIC, NORMAL INSPECTION, NORMOCEPHALIC Skin: Positive for: Normal Color, Warm, DRY Eye Exam: Positive for: EOMI, PERRL ENT: Positive for: Normal ENT Inspection. Negative for: Nasal Congestion Neck: Positive for: Normal, Painless ROM, Supple Cardiovascular/Chest: Positive for: Regular Rate, Rhythm Respiratory: Positive for: CNT, Normal Breath Sounds Gastrointestinal/Abdominal: Positive for: Soft, Tenderness (mild epigastric) Back: Positive for: Normal Inspection. Negative for: L CVA Tenderness, R CVA Tenderness Extremity: Positive for: Normal ROM. Negative for: Tenderness, Pedal Edema Neurologic/Psych: Positive for: Alert, Oriented. Negative for: Motor/Sensory Deficits, Facial Droop - Laboratory Results Result Diagrams: 12/22/17 10:20 12/22/17 10:20 Interpretation Of Abn Labs: 0.14 trop, elevated blood sugar; elevate bun/cr - ECG ECG: Positive for: Interpreted By Me, Viewed By Me ECG Rhythm: Positive for: Sinus Tachycardia O2 Sat by Pulse Oximetry: 98 Pulse Ox Interpretation: Normal - Radiology X-Ray: Interpreted by Me, Viewed By Me X-Ray Interpretation: No Acute Disease - CT Scan/US head Other Rad Studies (CT/US): Read By Radiologist Other Rad Interpretation: no acute - Progress ED Course And Treament: 955: Emergent central line obtained for central line access to give D50 for sugar 27. Pt. and mom gave verbal consent. Aware of need to get IV access to give medication. Made aware of risk of bleeding, pain, numbness, tingles from the central line. Pt. was given glucagon prior to IV access. 1020: Pt. having episode of shaking all extremities that lasted 20 seconds. Pt. communicating right after demanding pain meds. States she does not take anything at home and not prescribed anything. On zofran, reglan. Will give morphine and ativan. 1118: Pt. had ct head and briefly after had a shaking episode. Pt. with no tongue bites. Unclear if seizure. Will load with cerebryx. 1238: Cardiology Dr. Joel at bedside seeing pt. No additional tx or asa at this time. Dr. Rg resident spoken to and will admit tele. Dr. Kent pending call back. - Critical Care Total Time (In Min): 60 Documented Critical Care: Time excludes all time spent performint seperately billable procedures Procedures - Central Line Central Line Lumen: triple Central Line Procedure: betadine prep, sterile drapes applied, sterile dressing applied Central Line Postion: femoral (L) Anesthesia: Lidocaine cc's of anesthesia: 3 Complications: none Central Line Post Position: good blood return Progress: Emergent Central Line. Verbal consent obtained. Disposition - Clinical Impression Clinical Impression: Acute on chronic renal insufficiency, Hypoglycemia, Seizure, Gastroparesis, Elevated troponin - Patient ED Disposition Is Patient to be Admitted: Yes - Disposition Disposition Time: 12:00 Condition: FAIR - Pt Status Changed To: Hospital Disposition Of: Inpatient - Admit Certification Admit to Inpatient:: After my assessment, the patient will require hospitalization for at least two midnights. This is because of the severity of symptoms shown, intensity of services needed, and/or the medical risk in this patient being treated as an outpatient. - POA Present On Arrival: Poor Glycemic Control
[2017-12-22] MEDS ORDERED: Dextrose 50% SYRINGE Inj (50 ml) IVP STA (10:14)
[2017-12-22] MEDS ORDERED: Dextrose 50% SYRINGE Inj (50 ml) IVP ONE (10:14)
[2017-12-22] MEDS ORDERED: Glucagon Recombinant 1 mg Inj IM STA (10:14)
[2017-12-22] MEDS ORDERED: Dextrose 5%/0.45% NS 1,000 ML IV SCH (10:15)
[2017-12-22] MEDS ORDERED: Dextrose 5%/0.45% NS 500 ML IV SCH (10:28)
[2017-12-22 10:35] LABS: VENOUS BLOOD GAS BASE EXCESS -2.3 mmol/L (0.0-2.0); VENOUS BLOOD GAS PCO2 42 mmHg (40-60); VENOUS BLOOD GAS PO2 45 mm/Hg (30-55); VENOUS BLOOD PH 7.35 (7.32-7.43)
[2017-12-22 10:39] LABS: BASO % 0.3 % (0.0-2.0); HEMOGLOBIN 9.8 g/dL (12.0-16.0); LYMPH # 0.8 K/uL (1.0-4.3); LYMPH % 6.8 % (20.0-40.0); MEAN CELL VOLUME 90.8 fl (81.0-99.0); MEAN CORPUSCULAR HEMOGLOBIN 28.9 pg (27.0-31.0); MEAN CORPUSCULAR HGB CONC 31.9 g/dL (33.0-37.0); MEAN PLATELET VOLUME 9.9 fl (7.2-11.7); MONO # 0.3 K/uL (0.0-0.8); MONO % 2.7 % (0.0-10.0); NEUT # 10.1 K/uL (1.8-7.0); NEUT % 90.2 % (50.0-75.0); PLATELET COUNT 335 K/uL (130-400); RED CELL DISTRIBUTION WIDTH 14.9 % (11.5-14.5); WHITE BLOOD COUNT 11.2 K/uL (4.8-10.8)
[2017-12-22 10:41] LABS: PROTHROMBIN TIME 10.9 Seconds (9.8-13.1)
[2017-12-22 10:43] LABS: PARTIAL THROMBOPLASTIN TIME 27.2 Seconds (25.6-37.1)
[2017-12-22 11:04] LABS: ALB/GLOB RATIO 1.1 (1.0-2.1); ALBUMIN 3.3 g/dL (3.5-5.0); ALT/SGPT 20 U/L (9-52); AST/SGOT 19 U/L (14-36); BLOOD UREA NITROGEN 49 mg/dl (7-17); CALCIUM 8.4 mg/dL (8.4-10.2); GFR NON-AFRICAN AMERICAN 9; LIPASE 20 U/L (23-300)
[2017-12-22 11:18] LABS: LYMPHOCYTE 9 % (20-50); MONOCYTE 3 % (0-10); NEUTROPHIL 88 % (42-75); TOTAL CELLS COUNTED 100
[2017-12-22 11:19] LABS: ANISOCYTOSIS SLIGHT; HYPOCHROMIC SLIGHT; OVALOCYTES SLIGHT; PLATELET ESTIMATE NORMAL (NORMAL)
[2017-12-22 11:20] LABS: LARGE PLATELETS PRESENT
--- NOTE | 2017-12-22 11:45 | CT ---
Date of service: 12/22/2017 PROCEDURE: CT HEAD WITHOUT CONTRAST. HISTORY: headache COMPARISON: 11/04/2017. TECHNIQUE: Axial computed tomography images were obtained through the head/brain without intravenous contrast. Radiation dose: Total exam DLP = 892.25 mGy-cm. This CT exam was performed using one or more of the following dose reduction techniques: Automated exposure control, adjustment of the mA and/or kV according to patient size, and/or use of iterative reconstruction technique. FINDINGS: HEMORRHAGE: No intracranial hemorrhage. BRAIN: Andrews-white matter differentiation is preserved. There is no mass, mass effect or abnormal extra-axial fluid collection. There is no territorial infarction. The midline sagittal structures are normal. VENTRICLES: The ventricles are normal in size, shape and configuration. CALVARIUM: There is no calvarial fracture or extracranial soft tissue swelling. PARANASAL SINUSES: There is high retention cysts/polyps both posterior maxillary sinuses likely related to inspissated secretions. MASTOID AIR CELLS: The left mastoid air cells are predominantly clear.. There cerumen in the right external auditory canal there is a small right mastoid tip effusion. OTHER FINDINGS: None. IMPRESSION: No acute intracranial abnormality.
--- NOTE | 2017-12-22 12:18 | RAD ---
Date of service: 12/22/2017 HISTORY: hypoglycemia COMPARISON: 11/14/2017. FINDINGS: LUNGS: The lungs are well inflated and clear. PLEURA: No pleural effusions or pneumothorax. CARDIOVASCULAR: The heart is normal in size. No aortic atherosclerotic calcification present. OSSEOUS STRUCTURES: Within normal limits for the patient's age. VISUALIZED UPPER ABDOMEN: Normal. OTHER FINDINGS: None. IMPRESSION: No active pulmonary disease.
[2017-12-22] MEDS ORDERED: Glucagon Recombinant 1 mg Inj IM PRN (13:16)
[2017-12-22] MEDS: Sodium Chloride 0.9% 1,000 ML IV SCH ×2 (15:21→23:13)
[2017-12-22] MEDS ORDERED: Insulin Lispro (humaLOG) 100 Units/ml Inj SC SCH (17:00)
--- NOTE | 2017-12-22 18:34 | CARD ---
APPROVED REPORT Date of service: 12/22/2017 EKG Measurement Heart [id number] <Conclusion> Sinus tachycardia Otherwise normal ECG
[2017-12-22] MEDS ORDERED: INSULIN GLARGINE HUM REC ANLOG 13 UNIT SC SCH (22:00)
[2017-12-22] MEDS: DiphenhydrAMINE 50 mg/ml Inj IVP PRN (22:35)
[2017-12-22] MEDS ORDERED: Insulin Detemir 100 Units/ml Inj SC STA (23:18)
[2017-12-23] MEDS: Sodium Chloride 0.9% 1,000 ML IV SCH ×2 (01:39→10:47)
--- NOTE | 2017-12-23 01:43 | CON ---
DATE: 12/22/2017 CARDIOLOGY CONSULTATION REASON FOR CONSULTATION: Borderline troponin elevation. HISTORY OF PRESENT ILLNESS: The patient is a 27-year-old female who has a history of type 1 diabetes mellitus since her early teenage, on insulin therapy and has chronic renal insufficiency and being followed by Dr. Martines. The patient was admitted for weakness and altered mental status. The patient at this time denies any chest pain or shortness of breath and is unaware of any prior cardiac history. SOCIAL HISTORY: Nonsmoker, nondrinker. MEDICATIONS: Home medications includes Reglan, insulin, amlodipine, Zofran, clonidine patch, Demadex. Current hospital medications are Ativan 1 mg intravenously p.r.n. , clonidine 0.1 mg weekly patch, Norvasc 5 mg once a day, and normal saline 100 mL per hour. REVIEW OF SYSTEMS: No nausea or vomiting. No fever or chills. PHYSICAL EXAMINATION: GENERAL: The patient is a middle-aged female who does not appear to be in acute distress. VITAL SIGNS: Blood pressure 179/111, heart rate 126, temperature 98.6, and respirations 18. HEENT: Normocephalic. NECK: No JVD. CHEST: Clear. HEART: S1 and S2 and regular. EXTREMITIES: No edema. No calf tenderness. LABORATORY DATA: Hemoglobin and hematocrit 9.8 and 30.9, white count 11.2, platelet count 175,000. PT, PPT, and INR are within normal limits. SMA-7: Sodium 140, potassium 3.5, chloride 108, CO2 of 20, glucose 116, BUN 49, and creatinine 5.4. Troponin is 0.14. EKG reveals sinus tachycardia at the range of 20. Chest x-ray was unremarkable. CT scan without contrast, no acute findings. The patient's abdomen and pelvic CT scan in 10/2017 revealed mild rectosigmoid thickening, maybe related to under distention versus infectious/inflammatory colitis. Echocardiographic study done last month revealed normal ejection fraction. No vegetations are detected. ASSESSMENT: 1. Worsening renal insufficiency. The patient's most recent blood urea nitrogen and creatinine prior to this emergency room hospitalization were 11 and 3.1 respectively. 2. Dehydration. 3. Uncontrolled diabetes mellitus. 4. Gastroparesis. 5. Lashell line troponin elevation. RECOMMENDATIONS: Continue current normal saline infusion at 100 mL/hour. Continue clonidine patch as well as oral Norvasc. Aspirin will not be epigastric discomfort and gastroparesis as well as nausea. Obtain serum D-dimer. Darryl Tinajero MD
[2017-12-23 03:41] LABS: TROPONIN I 0.105 ng/mL (0.00-0.120)
[2017-12-23 03:58] LABS: ALBUMIN 2.7 g/dL (3.5-5.0); CALCIUM 7.8 mg/dL (8.4-10.2)
[2017-12-23] MEDS: DiphenhydrAMINE 50 mg/ml Inj IVP PRN ×3 (05:53→20:43)
[2017-12-23] MEDS ORDERED: Influenza Vaccine (5 YR UP)/PF 60 MCG/0.5 ML SYR IM ONE (06:00)
[2017-12-23 06:26] LABS: BASO # 0.1 K/uL (0.0-0.2); BASO % 0.7 % (0.0-2.0); HEMOGLOBIN 9.8 g/dL (12.0-16.0); LYMPH # 2.3 K/uL (1.0-4.3); LYMPH % 17.9 % (20.0-40.0); MEAN CELL VOLUME 88.9 fl (81.0-99.0); MEAN CORPUSCULAR HGB CONC 32.6 g/dL (33.0-37.0); MEAN PLATELET VOLUME 9.6 fl (7.2-11.7); MONO % 7.3 % (0.0-10.0); NEUT # 9.7 K/uL (1.8-7.0); NEUT % 74.1 % (50.0-75.0); RBC 3.39 Mil/uL (3.80-5.20); WHITE BLOOD COUNT 13.1 K/uL (4.8-10.8)
[2017-12-23] MEDS: Insulin Lispro (humaLOG) 100 Units/ml Inj SC SCH ×7 (07:30→22:08)
--- NOTE | 2017-12-23 07:44 | CP.PCM.HP ---
<Andrew Kramer - Last Filed: 12/23/17 08:21> History of Present Illness - History of Present Illness History of Present Illness: 27 y/o F with a PMHx of DM1, CKD and gastroparesis presented yesterday at the ED due to a 2 days-Hx of nausea, vomiting and abdominal pain. Pt reports not eat ing for 2 days due to persistent nausea. Vomit was non-bloody and non-bilious. Pt was recently discharged from this hospital due to seizures like episodes. These episodes are described as diaphoresis and shakiness when blood sugar levels are low. -At ED, pt had a serum glucose of 27 and developed an episode of ?seizure. Central IV line was obtained and pt was stabilized. Head CT was unremarkable, bloodwork showed elevated troponin, creatinine of 5.1 (CKD stage V). -Today, pt was seen and examined by bedside with Dr Rg. Pt complains of abdominal pain, still nauseous but able to hold water and some juice. Pt reports being diagnosed with DM 1 when she was 9 y/o, has always being on Insulin, diagnosed with chronic kidney disease several months ago. Pt afebrile with No acute events overnight. Denies chest pain, SOB, fever, visual disturbances or urinary problems. PMD: Dr. Camacho Green House Manager: Dr. Loo Counter Roller: Dr. Martines Medication: Insulin pump for DM, Amlodipine, Metoclopramide daily PMHx: DM1, CKD and gastroparesis PSHx: Insulin Pump FHx: NC SHx: Denies smoking, alcohol, or drug use Present on Admission - Present on Admission Any Indicators Present on Admission: No Review of Systems - Constitutional Constitutional: absent: Chills, Fever - EENT Eyes: absent: Change in Vision Nose/Mouth/Throat: absent: Nasal Congestion, Odynophagia, Sore Throat, Neck Mass - Cardiovascular Cardiovascular: absent: Chest Pain, Claudication, Palpitations - Respiratory Respiratory: absent: Cough, Dyspnea, Hemoptysis - Gastrointestinal Gastrointestinal: Abdominal Pain, Bloating, Nausea, Vomiting. absent: Diarrhea - Genitourinary Genitourinary: absent: Dysuria, Hematuria, Urinary Frequency, Urinary Urgency Past Patient History - Infectious Disease Hx of Infectious Diseases: None - Past Medical History & Family History Past Medical History?: Yes - Past Social History Smoking Status: vape pen - CARDIAC Hx Hypertension: Yes - PULMONARY Hx Bronchitis: Yes - NEUROLOGICAL Hx Neurological Disorder: No - HEENT Hx HEENT Problems: No - RENAL Hx Chronic Kidney Disease: Yes - ENDOCRINE/METABOLIC Hx Endocrine Disorders: Yes - HEMATOLOGICAL/ONCOLOGICAL Hx Anemia: Yes Hx Human Immunodeficiency Virus (HIV): No - INTEGUMENTARY Hx Dermatological Problems: No - MUSCULOSKELETAL/RHEUMATOLOGICAL Hx Musculoskeletal Disorders: No Hx Falls: No - GASTROINTESTINAL Hx Gastrointestinal Disorders: Yes Other/Comment: Gastroparesis - GENITOURINARY/GYNECOLOGICAL Hx Genitourinary Disorders: No - PSYCHIATRIC Hx Psychophysiologic Disorder: No Hx Substance Use: No - SURGICAL HISTORY Hx Surgeries: No - ANESTHESIA Hx Anesthesia: No Hx Anesthesia Reactions: No Meds Allergies/Adverse Reactions: Allergies Allergy/AdvReac Type Severity Reaction Status Date / Time No Known Allergies Allergy Verified 12/22/17 09:52 Physical Exam - Constitutional Appears: No Acute Distress - Head Exam Head Exam: ATRAUMATIC, NORMAL INSPECTION - Eye Exam Eye Exam: EOMI - ENT Exam ENT Exam: Mucous Membranes Dry - Neck Exam Neck exam: Positive for: Full Rom, Normal Inspection - Respiratory Exam Respiratory Exam: NORMAL BREATHING PATTERN. absent: Rales, Rhonchi, Wheezes - Cardiovascular Exam Cardiovascular Exam: REGULAR RHYTHM, +S1, +S2 - GI/Abdominal Exam GI & Abdominal Exam: Normal Bowel Sounds, Soft. absent: Tenderness - Extremities Exam Extremities exam: Positive for: normal inspection. Negative for: calf tenderness, pedal edema - Back Exam Back exam: absent: CVA tenderness (L), CVA tenderness (R) - Neurological Exam Neurological exam: Alert, Oriented x3 Results - Vital Signs Recent Vital Signs: Last Vital Signs Temp 98.1 F 12/23/17 04:48 Pulse 92 H 12/23/17 04:48 Resp 16 12/23/17 04:48 BP 151/92 H 12/23/17 04:48 Pulse Ox 99 12/23/17 04:48 - Labs Result Diagrams: 12/23/17 06:15 12/23/17 02:45 Labs: Laboratory Results - last 24 hr 12/22/17 12/22/17 12/22/17 09:44 10:20 10:20 WBC 11.2 H RBC 3.40 L Hgb 9.8 L Hct 30.9 L MCV 90.8 D MCH 28.9 MCHC 31.9 L RDW 14.9 H Plt Count 335 MPV 9.9 Neut % (Auto) 90.2 H Lymph % (Auto) 6.8 L Hayes % (Auto) 2.7 Eos % (Auto) 0.0 Baso % (Auto) 0.3 Neut # (Auto) 10.1 H Lymph # (Auto) 0.8 L Hayes # (Auto) 0.3 Eos # (Auto) 0.0 Baso # (Auto) 0.0 Neutrophils % (Manual) 88 H Lymphocytes % (Manual) 9 L Monocytes % (Manual) 3 Platelet Estimate Normal Large Platelets Present Hypochromasia (manual) Slight Anisocytosis (manual) Slight Ovalocytes Slight PT INR APTT D-Dimer, Quantitative pO2 VBG pH VBG pCO2 VBG HCO3 VBG Total CO2 VBG O2 Sat (Calc) VBG Base Excess VBG Potassium Glucose Lactate FiO2 Blood Gas Comments Crit Value Called To Crit Value Called By Crit Value Read Back Blood Gas Notified Time Sodium 140 Potassium 3.5 L Chloride 108 H Carbon Dioxide 20 L Anion Gap 16 BUN 49 H Creatinine 5.4 H Est GFR ( Amer) 11 Est GFR (Non-Af Amer) 9 POC Glucose (mg/dL) 26 L* Random Glucose 460 H* D Calcium 8.4 Phosphorus Magnesium Total Bilirubin 0.1 L AST 19 ALT 20 Alkaline Phosphatase 133 H D Total Creatine Kinase Troponin I 0.1400 H* Total Protein 6.4 Albumin 3.3 L D Globulin 3.1 Albumin/Globulin Ratio 1.1 Triglycerides Cholesterol LDL Cholesterol Direct HDL Cholesterol Lipase 20 L TSH 3rd Generation Venous Blood Potassium Alcohol, Quantitative < 10 12/22/17 12/22/17 12/22/17 10:20 10:21 10:29 WBC RBC Hgb Hct MCV MCH MCHC RDW Plt Count MPV Neut % (Auto) Lymph % (Auto) Hayes % (Auto) Eos % (Auto) Baso % (Auto) Neut # (Auto) Lymph # (Auto) Hayes # (Auto) Eos # (Auto) Baso # (Auto) Neutrophils % (Manual) Lymphocytes % (Manual) Monocytes % (Manual) Platelet Estimate Large Platelets Hypochromasia (manual) Anisocytosis (manual) Ovalocytes PT 10.9 INR 1.0 APTT 27.2 D-Dimer, Quantitative pO2 45 VBG pH 7.35 VBG pCO2 42 VBG HCO3 22.8 VBG Total CO2 24.5 VBG O2 Sat (Calc) 85.7 H VBG Base Excess -2.3 L VBG Potassium 3.3 L Glucose 478 H* D Lactate 3.6 H FiO2 21.0 Blood Gas Comments Vbg Crit Value Called To Kandy iverson rn. Crit Value Called By Liudmila Crit Value Read Back Y Blood Gas Notified Time 1034 Sodium 140.0 Potassium Chloride 107.0 Carbon Dioxide Anion Gap BUN Creatinine Est GFR ( Amer) Est GFR (Non-Af Amer) POC Glucose (mg/dL) 421 H* Random Glucose Calcium Phosphorus Magnesium Total Bilirubin AST ALT Alkaline Phosphatase Total Creatine Kinase Troponin I Total Protein Albumin Globulin Albumin/Globulin Ratio Triglycerides Cholesterol LDL Cholesterol Direct HDL Cholesterol Lipase TSH 3rd Generation Venous Blood Potassium 3.3 L Alcohol, Quantitative 12/22/17 12/22/17 12/22/17 10:30 15:56 19:53 WBC RBC Hgb Hct MCV MCH MCHC RDW Plt Count MPV Neut % (Auto) Lymph % (Auto) Hayes % (Auto) Eos % (Auto) Baso % (Auto) Neut # (Auto) Lymph # (Auto) Hayes # (Auto) Eos # (Auto) Baso # (Auto) Neutrophils % (Manual) Lymphocytes % (Manual) Monocytes % (Manual) Platelet Estimate Large Platelets Hypochromasia (manual) Anisocytosis (manual) Ovalocytes PT INR APTT D-Dimer, Quantitative pO2 VBG pH VBG pCO2 VBG HCO3 VBG Total CO2 VBG O2 Sat (Calc) VBG Base Excess VBG Potassium Glucose Lactate FiO2 Blood Gas Comments Crit Value Called To Crit Value Called By Crit Value Read Back Blood Gas Notified Time Sodium Potassium Chloride Carbon Dioxide Anion Gap BUN Creatinine Est GFR ( Amer) Est GFR (Non-Af Amer) POC Glucose (mg/dL) 144 H Random Glucose Calcium Phosphorus Magnesium Total Bilirubin AST ALT Alkaline Phosphatase Total Creatine Kinase 96 Troponin I 0.1480 H* Total Protein Albumin Globulin Albumin/Globulin Ratio Triglycerides Cholesterol LDL Cholesterol Direct HDL Cholesterol Lipase TSH 3rd Generation Venous Blood Potassium Alcohol, Quantitative 12/22/17 12/23/17 12/23/17 21:19 02:45 03:50 WBC RBC Hgb Hct MCV MCH MCHC RDW Plt Count MPV Neut % (Auto) Lymph % (Auto) Hayes % (Auto) Eos % (Auto) Baso % (Auto) Neut # (Auto) Lymph # (Auto) Hayes # (Auto) Eos # (Auto) Baso # (Auto) Neutrophils % (Manual) Lymphocytes % (Manual) Monocytes % (Manual) Platelet Estimate Large Platelets Hypochromasia (manual) Anisocytosis (manual) Ovalocytes PT INR APTT D-Dimer, Quantitative 686 H pO2 VBG pH VBG pCO2 VBG HCO3 VBG Total CO2 VBG O2 Sat (Calc) VBG Base Excess VBG Potassium Glucose Lactate FiO2 Blood Gas Comments Crit Value Called To Crit Value Called By Crit Value Read Back Blood Gas Notified Time Sodium 134 Potassium 4.3 Chloride 105 Carbon Dioxide 23 Anion Gap 10 BUN 42 H Creatinine 5.1 H Est GFR ( Amer) 12 Est GFR (Non-Af Amer) 10 POC Glucose (mg/dL) 451 H* Random Glucose 390 H Calcium 7.8 L Phosphorus 5.5 H Magnesium 2.3 Total Bilirubin 0.1 L AST 16 ALT 21 Alkaline Phosphatase 107 Total Creatine Kinase 65 Troponin I 0.1050 Total Protein 5.5 L Albumin 2.7 L Globulin 2.8 Albumin/Globulin Ratio 1.0 Triglycerides 67 Cholesterol 169 LDL Cholesterol Direct 91 HDL Cholesterol 60 Lipase TSH 3rd Generation 1.05 Venous Blood Potassium Alcohol, Quantitative 12/23/17 12/23/17 05:23 06:15 WBC 13.1 H RBC 3.39 L Hgb 9.8 L Hct 30.2 L MCV 88.9 MCH 29.0 MCHC 32.6 L RDW 15.0 H Plt Count 312 MPV 9.6 Neut % (Auto) 74.1 Lymph % (Auto) 17.9 L Hayes % (Auto) 7.3 Eos % (Auto) 0.0 Baso % (Auto) 0.7 Neut # (Auto) 9.7 H Lymph # (Auto) 2.3 Hayes # (Auto) 1.0 H Eos # (Auto) 0.0 Baso # (Auto) 0.1 Neutrophils % (Manual) Lymphocytes % (Manual) Monocytes % (Manual) Platelet Estimate Large Platelets Hypochromasia (manual) Anisocytosis (manual) Ovalocytes PT INR APTT D-Dimer, Quantitative pO2 VBG pH VBG pCO2 VBG HCO3 VBG Total CO2 VBG O2 Sat (Calc) VBG Base Excess VBG Potassium Glucose Lactate FiO2 Blood Gas Comments Crit Value Called To Crit Value Called By Crit Value Read Back Blood Gas Notified Time Sodium Potassium Chloride Carbon Dioxide Anion Gap BUN Creatinine Est GFR ( Amer) Est GFR (Non-Af Amer) POC Glucose (mg/dL) 255 H Random Glucose Calcium Phosphorus Magnesium Total Bilirubin AST ALT Alkaline Phosphatase Total Creatine Kinase Troponin I Total Protein Albumin Globulin Albumin/Globulin Ratio Triglycerides Cholesterol LDL Cholesterol Direct HDL Cholesterol Lipase TSH 3rd Generation Venous Blood Potassium Alcohol, Quantitative Assessment & Plan - Assessment and Plan (Free Text) Assessment: 27 y/o F with a PMHx of DM1, CKD and gastroparesis admitted for evaluation and management of severe hypoglycemic episodes. PLAN: --Stable --Hypoglycemia protocol --Insulin, sliding scale --Home medications resumed --Influenza vaccine ordered --Gastroenterology consult, Dr Rodriguez due to chronic gastroparesis --Nephrology consult, Dr Walker due to CKD. --Endocrinology consult, Dr Charles --Neurology consult, Dr Kent --Cardiology consult, Dr Tinajero. --Continue management as ordered. Case discussed with Dr Ifrah Williamson, PGY-2 - Date & Time Date: 12/23/17 Time: 08:26 <Garret Rg - Last Filed: 12/26/17 07:02> Results - Vital Signs Recent Vital Signs: Last Vital Signs Temp 98.1 F 12/26/17 05:00 Pulse 85 12/26/17 05:00 Resp 18 12/26/17 05:00 BP 163/94 H 12/26/17 05:00 Pulse Ox 99 12/26/17 05:00 - Labs Result Diagrams: 12/24/17 05:00 12/24/17 05:00 Labs: Laboratory Results - last 24 hr 12/25/17 12/25/17 12/25/17 10:59 16:07 21:15 POC Glucose (mg/dL) 102 250 H 414 H* 12/26/17 05:13 POC Glucose (mg/dL) 294 H Assessment & Plan - Assessment and Plan (Free Text) Assessment: Patient was personally seen and examined by me in rounds with residents. Available labs and diagnostic data reviewed. Case, Patient's condition and management plan discussed with residents in rounds. Agree with resident's progress note. Plan: As ordered.
[2017-12-23] MEDS ORDERED: Patient's Own Med (Torsemide [Demadex] 5 mg) PO SCH (09:00)
--- NOTE | 2017-12-23 10:34 | CON ---
DATE: 12/22/2017 LOCATION: Room 406. HISTORY OF PRESENT ILLNESS: This is a 27-year-old female with known history of type 1 insulin-dependent diabetes presenting here with sudden onset of diffuse upper abdominal pain with supervening nausea, dyspepsia and vomiting and is now being admitted for further management of acute exacerbation of diabetic gastroparesis and also being referred for diabetic evaluation because of extremes of glycemic fluctuations, presenting here also with symptomatic hypoglycemia. However, at this time, tonight the patient has evolved to have hyperglycemic accelerations with glucose values in the 400 range as noted and the last glucose tonight is 451 mg/dL. PAST MEDICAL HISTORY: As mentioned above, history of type 1 insulin-dependent diabetes on a combination of Lantus given as 13 units at bedtime with Humalog given as 8 units t.i.d., also using Victoza at 0.6 mg subcu once daily, history of hypertension and dyslipidemia, history of diabetic retinopathy, polyneuropathy and nephropathy with progressively worsening renal insufficiency and end-stage renal disease. FAMILY HISTORY: Positive for diabetes and hypertension. SOCIAL HISTORY The patient is an active smoker and has a supportive family. Otherwise no other known substance use. REVIEW OF SYSTEMS Admits to generalized body weakness with easy fatigability and tiredness and suboptimal energy level. Also admits to progressive bouts of dizziness and lightheadedness, worse on the day of admission with a brief bout of confusion and disorientation with associated hypoglycemic episodes as noted. No chest pains or palpitations, but admits to progressive shortness of breath especially on exertion. Her oral intake has been variable with nausea, dyspepsia and severe upper abdominal pain and episodic bouts of vomiting as noted. Also admits to lower extremity painful paresthesias, especially nocturnally. PHYSICAL EXAMINATION: VITAL SIGNS: female in no apparent distress with a blood pressure of 160/100, pulse of 100 beats per minute and regular, temperature 98, respirations 20, height is 5 feet 1 inch, weight is 130 pounds. HEENT: Head normocephalic. Anicteric with pale conjunctivae. Funduscopy not possible at this time. Ears, nose and throat otherwise normal. NECK: Supple. Thyroid gland is normal in size. No carotid bruits or cervical adenopathy. CARDIOPULMONARY: Some adynamic precordium. S1, S2 is rapid and regular. LUNGS: Clear to auscultation. ABDOMEN: Flat, soft with positive bowel sounds. EXTREMITIES: No peripheral edema. Pulses are +2 bilaterally. LABORATORIES: Her initial fingerstick glucose in the emergency room was 26 mg/dL. The initial chemistries showed a BUN of 49, sodium 140, potassium 3.5, chloride 108, CO2 of 20, glucose 460 and creatinine 5.4. The subsequent glucose levels have ranged from 144-451 mg/dL. Her troponin is 0.14. ASSESSMENT This is a 27-year-old female with uncontrolled and decompensated type 1 insulin-dependent diabetes, presenting here with extremes of glycemic fluctuations initially with symptomatic hypoglycemia and associated neuroglycopenic and hyperadrenergic manifestations of the same with concomitant variable and suboptimal oral intake because of also concurrent acute exacerbation of diabetic gastroparesis. She also has diabetic microvascular complications of retinopathy, polyneuropathy and nephropathy with progressively worsening azotemia and near end-stage renal disease. At this time she has supervening hyperglycemic accelerations as noted tonight and also most likely related to a rebound hyperglycemia with suboptimal therapeutic regimen. PLAN OF MANAGEMENT: We will modify her current insulin regimen and switch her over to a low-dose of a basal and bolus insulin drug combination as ordered tonight. We will give a stat dose of Levemir given as 10 units subcu tonight and we will add from tomorrow evening basal insulin given as Levemir at 14 units subcu at bedtime daily. We will modify the coverage scale to obviate hypoglycemia. Detailed orders have been given as soon as noted. We will also add Humalog given as 6 units subcu t.i.d. before meals to start tomorrow morning as ordered. We will obtain a hemoglobin A1c to confirm her prior glycemic control and baseline thyroid function studies and lipid panel with a PTH intact level to screen for underlying secondary hyperparathyroidism. We will initiate tomorrow a soft diet with a low carb consistency, renal non dialysis menu as ordered. We will obtain serial chemistries and supplement accordingly needed. We will continue the IV hydration as given tonight and overnight as ordered. Yamileth Charles MD
--- NOTE | 2017-12-23 18:44 | PN ---
DATE: 12/23/2017 SUBJECTIVE: The patient is experiencing epigastric discomfort and repeated vomiting. PHYSICAL EXAMINATION VITAL SIGNS: Blood pressure 158/105, heart rate 99, temperature 98.6, respirations 18. HEENT: Pale conjunctivae. CHEST: Clear. HEART: S1 and S2 regular. ABDOMEN: Extremely tender. EXTREMITIES: No calf tenderness. LABORATORY DATA: Hemoglobin and hematocrit of 9.8 and , white count 15.1, platelet count 312,000. Today's SMA-7: Sodium 134, potassium 4.3, chloride 105, CO2 of 23, glucose 390, BUN 42, creatinine 5.1. Repeat troponin is 0.105. Lipase level is 20. ASSESSMENT: 1. Gastroparesis. 2. Chronic renal insufficiency. 3. Uncontrolled diabetes mellitus. 4. Borderline troponin elevation. 5. Dehydration. RECOMMENDATIONS: The patient should be kept n.p.o.. Continue clonidine patch and IV Zofran 4 mg p.r.n. UCG was ordered, and if negative, the patient will undergo V/Q scan and also scheduled for venous Doppler of the lower extremities. Darryl Tinajero MD DD: [id number] CORNELIUS
--- NOTE | 2017-12-23 19:43 | PN ---
DATE: 12/23/2017 LOCATION: Room 406. SUBJECTIVE: This is a 27-year-old female with recent uncontrolled type 1 insulin-dependent diabetes, presenting here with progressive renal insufficiency and supervening nausea, dyspepsia and upper abdominal pain and is now being followed closely for metabolic management. She continues to have episodic bouts of vomiting with very nil oral intake today as noted. Her glucose levels are fluctuating and ranging from 123 to 255 mg/dL. LABORATORY DATA: Her latest chemistry showed a BUN of 42, sodium 134, potassium 4.3, chloride 105, CO2 of 23, glucose 390 and creatinine 5.1. PLAN: So at this time, we will continue the same basal and bolus insulin regimen to allow for dose equilibration and keep her on the Humalog given as 6 units t.i.d. before meals as ordered. We will continue also the basal insulin given as Levemir at 14 units subcu at bedtime daily as given. We will obtain serial chemistries and supplement accordingly as needed. We will follow with you. Yamileth Charles MD
[2017-12-23] MEDS ORDERED: Insulin Detemir 100 Units/ml Inj SC SCH (22:00)
--- NOTE | 2017-12-24 02:45 | CP.PCM.CON ---
History of Present Illness - History of Present Illness History of Present Illness: Full neurology consult dictated. 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 At this point, there is no neurological intervention. on last admission, Video E EG was done and was normal during her seizures. Thank you DR barros Past Patient History - Infectious Disease Hx of Infectious Diseases: None - Past Medical History & Family History Past Medical History?: Yes - Past Social History Smoking Status: vape pen - CARDIAC Hx Hypertension: Yes - PULMONARY Hx Bronchitis: Yes - NEUROLOGICAL Hx Neurological Disorder: No - HEENT Hx HEENT Problems: No - RENAL Hx Chronic Kidney Disease: Yes - ENDOCRINE/METABOLIC Hx Endocrine Disorders: Yes - HEMATOLOGICAL/ONCOLOGICAL Hx Anemia: Yes Hx Human Immunodeficiency Virus (HIV): No - INTEGUMENTARY Hx Dermatological Problems: No - MUSCULOSKELETAL/RHEUMATOLOGICAL Hx Musculoskeletal Disorders: No Hx Falls: No - GASTROINTESTINAL Hx Gastrointestinal Disorders: Yes Other/Comment: Gastroparesis - GENITOURINARY/GYNECOLOGICAL Hx Genitourinary Disorders: No - PSYCHIATRIC Hx Psychophysiologic Disorder: No Hx Substance Use: No - SURGICAL HISTORY Hx Surgeries: No - ANESTHESIA Hx Anesthesia: No Hx Anesthesia Reactions: No Meds Allergies/Adverse Reactions: Allergies Allergy/AdvReac Type Severity Reaction Status Date / Time No Known Allergies Allergy Verified 12/22/17 09:52 - Medications Medications: Current Medications Acetaminophen (Tylenol 325mg Tab) 650 mg PO Q4 PRN PRN Reason: Pain, moderate (4-7) Amlodipine Besylate (Norvasc) 5 mg PO DAILY [facility] Last Admin: 12/23/17 09:04 Dose: 5 mg Clonidine HCl (Catapres Tts1 0.1 Mg/24 Hr) 1 patch TD Q7D [facility] Last Admin: 12/22/17 16:44 Dose: 1 patch Dextrose (Dextrose 50% Inj) 0 ml IV STAT PRN; Protocol PRN Reason: Hypoglycemia Protocol Dextrose (Glutose 15) 0 gm PO ONCE PRN; Protocol PRN Reason: Hypoglycemia Protocol Diphenhydramine HCl (Benadryl) 50 mg IVP Q6 PRN PRN Reason: Itching / Pruritus Last Admin: 12/23/17 20:43 Dose: 50 mg Glucagon (Glucagen Diagnostic Kit) 0 mg IM STAT PRN; Protocol PRN Reason: Hypoglycemia Protocol Home Med (Insulin Glargine,Hum.Rec.Anlog [Elis Joaquin U-100]) 13 unit SC HS [facility] Last Admin: 12/23/17 22:08 Dose: Not Given Insulin Human Lispro (Humalog) 0 units SC [facility]; Protocol Last Admin: 12/23/17 22:08 Dose: Not Given Lorazepam (Ativan) 1 mg IVP PRN PRN PRN Reason: Seizure activity Morphine Sulfate (Morphine) 2 mg IVP Q6 PRN PRN Reason: Pain, severe (8-10) Last Admin: 12/23/17 21:33 Dose: 2 mg Ondansetron HCl (Zofran Inj) 4 mg IVP Q4 [facility] Last Admin: 12/23/17 20:43 Dose: 4 mg Results - Vital Signs Recent Vital Signs: Last Vital Signs Temp 98.5 F 12/24/17 01:00 Pulse 85 12/24/17 01:00 Resp 18 12/24/17 01:00 BP 155/93 H 12/24/17 01:00 Pulse Ox 97 12/24/17 01:00 - Labs Result Diagrams: 12/23/17 06:15 12/23/17 02:45 Labs: Laboratory Results - last 24 hr 12/23/17 12/23/17 12/23/17 02:45 03:50 05:23 WBC RBC Hgb Hct MCV MCH MCHC RDW Plt Count MPV Neut % (Auto) Lymph % (Auto) [place] % (Auto) Eos % (Auto) Baso % (Auto) Neut # (Auto) Lymph # (Auto) [place] # (Auto) Eos # (Auto) Baso # (Auto) D-Dimer, Quantitative 686 H Sodium 134 Potassium 4.3 Chloride 105 Carbon Dioxide 23 Anion Gap 10 BUN 42 H Creatinine 5.1 H Est GFR ( Amer) 12 Est GFR (Non-Af Amer) 10 POC Glucose (mg/dL) 255 H Random Glucose 390 H Hemoglobin A1c Calcium 7.8 L Phosphorus 5.5 H Magnesium 2.3 Total Bilirubin 0.1 L AST 16 ALT 21 Alkaline Phosphatase 107 Total Creatine Kinase 65 Troponin I 0.1050 Total Protein 5.5 L Albumin 2.7 L Globulin 2.8 Albumin/Globulin Ratio 1.0 Triglycerides 67 Cholesterol 169 LDL Cholesterol Direct 91 HDL Cholesterol 60 TSH 3rd Generation 1.05 12/23/17 12/23/17 12/23/17 06:15 07:57 12:12 WBC 13.1 H RBC 3.39 L Hgb 9.8 L Hct 30.2 L MCV 88.9 MCH 29.0 MCHC 32.6 L RDW 15.0 H Plt Count 312 MPV 9.6 Neut % (Auto) 74.1 Lymph % (Auto) 17.9 L [place] % (Auto) 7.3 Eos % (Auto) 0.0 Baso % (Auto) 0.7 Neut # (Auto) 9.7 H Lymph # (Auto) 2.3 [place] # (Auto) 1.0 H Eos # (Auto) 0.0 Baso # (Auto) 0.1 D-Dimer, Quantitative Sodium Potassium Chloride Carbon Dioxide Anion Gap BUN Creatinine Est GFR ( Amer) Est GFR (Non-Af Amer) POC Glucose (mg/dL) 123 H Random Glucose Hemoglobin A1c 7.4 H Calcium Phosphorus Magnesium Total Bilirubin AST ALT Alkaline Phosphatase Total Creatine Kinase Troponin I Total Protein Albumin Globulin Albumin/Globulin Ratio Triglycerides Cholesterol LDL Cholesterol Direct HDL Cholesterol TSH 3rd Generation 12/23/17 12/23/17 12/23/17 15:22 16:24 21:41 WBC RBC Hgb Hct MCV MCH MCHC RDW Plt Count MPV Neut % (Auto) Lymph % (Auto) [place] % (Auto) Eos % (Auto) Baso % (Auto) Neut # (Auto) Lymph # (Auto) [place] # (Auto) Eos # (Auto) Baso # (Auto) D-Dimer, Quantitative Sodium Potassium Chloride Carbon Dioxide Anion Gap BUN Creatinine Est GFR ( Amer) Est GFR (Non-Af Amer) POC Glucose (mg/dL) 24 L* 97 69 Random Glucose Hemoglobin A1c Calcium Phosphorus Magnesium Total Bilirubin AST ALT Alkaline Phosphatase Total Creatine Kinase Troponin I Total Protein Albumin Globulin Albumin/Globulin Ratio Triglycerides Cholesterol LDL Cholesterol Direct HDL Cholesterol TSH 3rd Generation
[2017-12-24] MEDS: DiphenhydrAMINE 50 mg/ml Inj IVP PRN ×2 (05:31→12:09)
[2017-12-24 05:34] LABS: HEMOGLOBIN 9.4 g/dL (12.0-16.0); MEAN CELL VOLUME 90.4 fl (81.0-99.0); MEAN CORPUSCULAR HGB CONC 32.1 g/dL (33.0-37.0); RBC 3.22 Mil/uL (3.80-5.20); RED CELL DISTRIBUTION WIDTH 14.8 % (11.5-14.5); WHITE BLOOD COUNT 7.4 K/uL (4.8-10.8)
[2017-12-24 05:50] LABS: IRON 74 ug/dL (37-170)
[2017-12-24 05:59] LABS: % IRON SATURATION 36 % (20-55); TOTAL IRON BINDING CAPACITY 207 ug/dL (250-450)
[2017-12-24 06:13] LABS: CALCIUM 8.1 mg/dL (8.4-10.2)
--- NOTE | 2017-12-24 06:24 | CP.PCM.CON ---
History of Present Illness - History of Present Illness History of Present Illness: Nephrology Consultation 27 yo F w/ pmh of htn, dm w/ diabetic nephropathy and nephrotic syndrome, CKD IV, gastroparesis, history of pseudoseizures, admitted with recurrent flare of gastroparesis; nephrology being consulted for acute kidney injury; Patient is well known to our service over past 1 year; has had recurrent admissions with gastroparesis flares over the past 2 months, last discharged just about 1 month ago; this time reports having taken Robitussin for cough and subsequently developed intractable vomiting with associated abdominal pain and became hypoglycemic (had been on insulin pump along with basal insulin); also had possible hypoglycemic seizure; In ED, patient had femoral triple lumen catheter placed for emergency IV access (has history of very difficulty venipuncture for even blood draws); Patient last vomited this morning; otherwise, has been tolerating clear liquid diet well; per nursing staff, patient is consuming excess amounts of juice/jello; Review of Systems - Constitutional Constitutional: absent: Chills, Fever - EENT Eyes: Blurred Vision - Cardiovascular Cardiovascular: absent: Chest Pain, Palpitations - Respiratory Respiratory: absent: Dyspnea - Gastrointestinal Gastrointestinal: As Per HPI, Abdominal Pain Additional comments: last BM on 5 days ago; - Genitourinary Genitourinary: absent: Difficulty Urinating, Dysuria - Musculoskeletal Additional comments: low back pain; - Integumentary Additional comments: clearing skin lesions; - Neurological Neurological: As Per HPI - Psychiatric Additional comments: history of depression, pseudoseizures; Past Patient History - Infectious Disease Hx of Infectious Diseases: None - Past Medical History & Family History Past Medical History?: Yes - Past Social History Smoking Status: vape pen - CARDIAC Hx Hypertension: Yes - PULMONARY Hx Bronchitis: Yes - NEUROLOGICAL Hx Neurological Disorder: No - HEENT Hx HEENT Problems: No - RENAL Hx Chronic Kidney Disease: Yes - ENDOCRINE/METABOLIC Hx Endocrine Disorders: Yes - HEMATOLOGICAL/ONCOLOGICAL Hx Anemia: Yes Hx Human Immunodeficiency Virus (HIV): No - INTEGUMENTARY Hx Dermatological Problems: No - MUSCULOSKELETAL/RHEUMATOLOGICAL Hx Musculoskeletal Disorders: No Hx Falls: No - GASTROINTESTINAL Hx Gastrointestinal Disorders: Yes Other/Comment: Gastroparesis - GENITOURINARY/GYNECOLOGICAL Hx Genitourinary Disorders: No - PSYCHIATRIC Hx Psychophysiologic Disorder: No Hx Substance Use: No - SURGICAL HISTORY Hx Surgeries: No - ANESTHESIA Hx Anesthesia: No Hx Anesthesia Reactions: No Meds Allergies/Adverse Reactions: Allergies Allergy/AdvReac Type Severity Reaction Status Date / Time No Known Allergies Allergy Verified 12/22/17 09:52 - Medications Medications: Current Medications Acetaminophen (Tylenol 325mg Tab) 650 mg PO Q4 PRN PRN Reason: Pain, moderate (4-7) Amlodipine Besylate (Norvasc) 5 mg PO DAILY [facility] Last Admin: 12/23/17 09:04 Dose: 5 mg Clonidine HCl (Catapres Tts1 0.1 Mg/24 Hr) 1 patch TD Q7D [facility] Last Admin: 12/22/17 16:44 Dose: 1 patch Dextrose (Dextrose 50% Inj) 0 ml IV STAT PRN; Protocol PRN Reason: Hypoglycemia Protocol Dextrose (Glutose 15) 0 gm PO ONCE PRN; Protocol PRN Reason: Hypoglycemia Protocol Diphenhydramine HCl (Benadryl) 50 mg IVP Q6 PRN PRN Reason: Itching / Pruritus Last Admin: 12/24/17 05:31 Dose: 50 mg Glucagon (Glucagen Diagnostic Kit) 0 mg IM STAT PRN; Protocol PRN Reason: Hypoglycemia Protocol Home Med (Insulin Glargine,Hum.Rec.Anlog [Basaglar Kwikpen U-100]) 13 unit SC HS [facility] Last Admin: 12/23/17 22:08 Dose: Not Given Insulin Human Lispro (Humalog) 0 units SC [facility]; Protocol Last Admin: 12/23/17 22:08 Dose: Not Given Lorazepam (Ativan) 1 mg IVP PRN PRN PRN Reason: Seizure activity Morphine Sulfate (Morphine) 2 mg IVP Q6 PRN PRN Reason: Pain, severe (8-10) Last Admin: 12/24/17 04:14 Dose: 2 mg Ondansetron HCl (Zofran Inj) 4 mg IVP Q4 [facility] Last Admin: 12/24/17 05:00 Dose: 4 mg Physical Exam - Constitutional Appears: Non-toxic, No Acute Distress - Eye Exam Eye Exam: Normal appearance. absent: Scleral icterus - ENT Exam ENT Exam: Mucous Membranes Moist - Respiratory Exam Respiratory Exam: Clear to Auscultation Bilateral. absent: Rales, Rhonchi, W heezes, Respiratory Distress - Cardiovascular Exam Cardiovascular Exam: RRR, +S1, +S2. absent: Gallop - GI/Abdominal Exam GI & Abdominal Exam: Soft. absent: Distended, Tenderness - Exam Exam: absent: Bladder Distension - Extremities Exam Additional comments: trace lower leg edema; - Back Exam Back exam: absent: CVA tenderness (L), CVA tenderness (R) - Neurological Exam Neurological exam: Alert, Oriented x3 Additional comments: no tremor at rest - Psychiatric Exam Psychiatric exam: Normal Affect, Normal Mood - Skin Skin Exam: Normal Color, Warm Results - Vital Signs Recent Vital Signs: Last Vital Signs Temp 98.3 F 12/24/17 05:00 Pulse 99 H 12/24/17 05:00 Resp 16 12/24/17 05:00 BP 155/93 H 12/24/17 01:00 Pulse Ox 100 12/24/17 05:00 - Labs Result Diagrams: 12/24/17 05:00 12/24/17 05:00 Labs: Laboratory Results - last 24 hr 12/23/17 12/23/17 12/23/17 06:15 07:57 12:12 WBC 13.1 H RBC 3.39 L Hgb 9.8 L Hct 30.2 L MCV 88.9 MCH 29.0 MCHC 32.6 L RDW 15.0 H Plt Count 312 MPV 9.6 Neut % (Auto) 74.1 Lymph % (Auto) 17.9 L [place] % (Auto) 7.3 Eos % (Auto) 0.0 Baso % (Auto) 0.7 Neut # (Auto) 9.7 H Lymph # (Auto) 2.3 [place] # (Auto) 1.0 H Eos # (Auto) 0.0 Baso # (Auto) 0.1 Sodium Potassium Chloride Carbon Dioxide Anion Gap BUN Creatinine Est GFR ( Amer) Est GFR (Non-Af Amer) POC Glucose (mg/dL) 123 H Random Glucose Hemoglobin A1c 7.4 H Calcium Iron TIBC % Saturation 12/23/17 12/23/17 12/23/17 15:22 16:24 21:41 WBC RBC Hgb Hct MCV MCH MCHC RDW Plt Count MPV Neut % (Auto) Lymph % (Auto) [place] % (Auto) Eos % (Auto) Baso % (Auto) Neut # (Auto) Lymph # (Auto) [place] # (Auto) Eos # (Auto) Baso # (Auto) Sodium Potassium Chloride Carbon Dioxide Anion Gap BUN Creatinine Est GFR ( Amer) Est GFR (Non-Af Amer) POC Glucose (mg/dL) 24 L* 97 69 Random Glucose Hemoglobin A1c Calcium Iron TIBC % Saturation 12/24/17 12/24/17 12/24/17 05:00 05:00 05:00 WBC 7.4 RBC 3.22 L Hgb 9.4 L Hct 29.2 L MCV 90.4 MCH 29.0 MCHC 32.1 L RDW 14.8 H Plt Count 234 MPV Neut % (Auto) Lymph % (Auto) [place] % (Auto) Eos % (Auto) Baso % (Auto) Neut # (Auto) Lymph # (Auto) [place] # (Auto) Eos # (Auto) Baso # (Auto) Sodium 132 Potassium 4.4 Chloride 104 Carbon Dioxide 20 L Anion Gap 12 BUN 37 H Creatinine 5.1 H Est GFR ( Amer) 12 Est GFR (Non-Af Amer) 10 POC Glucose (mg/dL) Random Glucose 470 H* D Hemoglobin A1c Calcium 8.1 L Iron 74 TIBC 207 L % Saturation 36 12/24/17 05:24 WBC RBC Hgb Hct MCV MCH MCHC RDW Plt Count MPV Neut % (Auto) Lymph % (Auto) [place] % (Auto) Eos % (Auto) Baso % (Auto) Neut # (Auto) Lymph # (Auto) [place] # (Auto) Eos # (Auto) Baso # (Auto) Sodium Potassium Chloride Carbon Dioxide Anion Gap BUN Creatinine Est GFR ( Amer) Est GFR (Non-Af Amer) POC Glucose (mg/dL) 485 H* Random Glucose Hemoglobin A1c Calcium Iron TIBC % Saturation - Imaging and Cardiology Chest x-ray Status: Image reviewed by me Additional comment: lungs clear Assessment & Plan (1) Acute on chronic renal insufficiency Assessment and Plan: NICKI on CKD IV; likely pre-renal etiology in the setting of GI losses, consistent with her previous admissions; baseline serum creatinine in low 3's (corresponding to eGFR ~18 ml/min), now at ~5; currently not vomiting and tolerating liquid diet well; stable electrolyte and volume status; no indication to initiate dialysis at this time; Currently with temporary femoral catheter that should be discontinued as soon as possible; given her history of very difficulty venous access, it may be advisable to place permanent port-a-cath; should avoid PICC lines in order to preserve peripheral veins (will be needed for HD access in the near future); -can monitor off IVF, will re-assess with am labs; if serum creatinine still elevated, will give gentle IVF; -holding diuretics; -avoid all nephrotoxic agents; -cannot give QAMAR inhibitor/ARB at this late stage of CKD, especially with volume depletion (causes loss of renal autoregulation and will worsen GFR); Status: Acute (2) CKD (chronic kidney disease), stage IV Assessment and Plan: Progressive proteinuric kidney disease secondary to biopsy proven diabetic nephropathy; we have discussed eventual progression to ESRD (likely in the next 6-12 months); patient already referred for kidney-pancreas transplant, is set for first eval later this month; will discuss dialysis planning with her as well; Status: Chronic (3) Hypertensive CKD (chronic kidney disease) Assessment and Plan: Severe BP elevation (signficantly higher than current elevation) often seen during during her gastroparesis flares; on clonidine 0.1 mg patch and amlodipine 5 mg daily; continue same for now; holding torsemide until renal function back to baseline; no role of QAMAR inhibitor/ARB as noted above; Status: Chronic (4) Anemia in CKD (chronic kidney disease) Assessment and Plan: Hgb below goal of 10-11 g for CKD; will repeat iron studies, likely will need dose of EPO; Status: Chronic (5) Nephrotic syndrome Assessment and Plan: Over 10 g proteinuria; patient was on low dose losartan but taken off by us recently for reasons mentioned above; goal of care now is adequate glycemic and BP control; Status: Chronic (6) Diabetes Assessment and Plan: Very brittle diabetic; previous admissions have been plagued with extremely high blood sugars and hypoglycemic episodes; patient also known to consume large amount of juices during these admissions; suggest not stopping her long acting basal insulin; Status: Acute
[2017-12-24] MEDS: Insulin Lispro (humaLOG) 100 Units/ml Inj SC SCH ×5 (06:53→21:44)
--- NOTE | 2017-12-24 09:55 | CP.PCM.PN ---
Subjective - Date & Time of Evaluation Date of Evaluation: 12/24/17 Time of Evaluation: 09:55 - Subjective Subjective: no overnight events Objective - Vital Signs/Intake and Output Vital Signs (last 24 hours): Temp Pulse Resp BP Pulse Ox 98.5 F 97 H 18 152/93 H 99 12/24/17 08:00 12/24/17 09:31 18 08:00 12/24/17 09:31 12/24/17 08:00 - Medications Medications: Current Medications Acetaminophen (Tylenol 325mg Tab) 650 mg PO Q4 PRN PRN Reason: Pain, moderate (4-7) Amlodipine Besylate (Norvasc) 5 mg PO DAILY [facility] Last Admin: 12/24/17 09:31 Dose: 5 mg Clonidine HCl (Catapres Tts1 0.1 Mg/24 Hr) 1 patch TD Q7D [facility] Last Admin: 12/22/17 16:44 Dose: 1 patch Dextrose (Dextrose 50% Inj) 0 ml IV STAT PRN; Protocol PRN Reason: Hypoglycemia Protocol Dextrose (Glutose 15) 0 gm PO ONCE PRN; Protocol PRN Reason: Hypoglycemia Protocol Diphenhydramine HCl (Benadryl) 50 mg IVP Q6 PRN PRN Reason: Itching / Pruritus Last Admin: 12/24/17 05:31 Dose: 50 mg Glucagon (Glucagen Diagnostic Kit) 0 mg IM STAT PRN; Protocol PRN Reason: Hypoglycemia Protocol Home Med (Insulin Glargine,Hum.Rec.Anlog [Basaglar Kwikpen U-100]) 13 unit SC HS [facility] Last Admin: 12/23/17 22:08 Dose: Not Given Insulin Human Lispro (Humalog) 0 units SC ACHS [facility]; Protocol Last Admin: 12/24/17 06:53 Dose: 10 units Lorazepam (Ativan) 1 mg IVP PRN PRN PRN Reason: Seizure activity Morphine Sulfate (Morphine) 2 mg IVP Q6 PRN PRN Reason: Pain, severe (8-10) Last Admin: 12/24/17 04:14 Dose: 2 mg Ondansetron HCl (Zofran Inj) 4 mg IVP Q4 [facility] Last Admin: 12/24/17 09:34 Dose: 4 mg - Labs Labs: 12/24/17 05:00 12/24/17 05:00 PT 10.9 Seconds (9.8-13.1) 12/22/17 10:20 INR 1.0 12/22/17 10:20 APTT 27.2 Seconds (25.6-37.1) 12/22/17 10:20 - Head Exam Head Exam: NORMOCEPHALIC - Neck Exam Neck Exam: Normal Inspection - Respiratory Exam Respiratory Exam: Clear to Ausculation Bilateral, NORMAL BREATHING PATTERN - Cardiovascular Exam Cardiovascular Exam: REGULAR RHYTHM
[2017-12-24] MEDS: Ergocalciferol 50,000 Intl Units Cap PO SCH (13:49)
[2017-12-24] MEDS: Pantoprazole 40 mg EC Tab PO SCH (13:51)
--- NOTE | 2017-12-24 14:50 | CP.PCM.PN ---
<Andrew Kramer - Last Filed: 12/24/17 14:38> Subjective - Date & Time of Evaluation Date of Evaluation: 12/24/17 Time of Evaluation: 09:10 - Subjective Subjective: 27 y/o F was seens and examined by bedside with Dr Bass. Pt reports feeling hungry and asking for food. Pt afebrile, tolerating PO fluids only, NO acute events overnight. Objective - Vital Signs/Intake and Output Vital Signs (last 24 hours): Temp Pulse Resp BP Pulse Ox 98.6 F 90 20 164/109 H 99 12/24/17 13:00 12/24/17 13:00 12/24/17 13:00 12/24/17 13:00 12/24/17 13:00 - Medications Medications: Current Medications Acetaminophen (Tylenol 325mg Tab) 650 mg PO Q4 PRN PRN Reason: Pain, moderate (4-7) Amlodipine Besylate (Norvasc) 5 mg PO DAILY [facility] Last Admin: 12/24/17 09:31 Dose: 5 mg Clonidine HCl (Catapres Tts1 0.1 Mg/24 Hr) 1 patch TD Q7D [facility] Last Admin: 12/22/17 16:44 Dose: 1 patch Dextrose (Dextrose 50% Inj) 0 ml IV STAT PRN; Protocol PRN Reason: Hypoglycemia Protocol Dextrose (Glutose 15) 0 gm PO ONCE PRN; Protocol PRN Reason: Hypoglycemia Protocol Diphenhydramine HCl (Benadryl) 50 mg IVP Q6 PRN PRN Reason: Itching / Pruritus Last Admin: 12/24/17 12:09 Dose: 50 mg Ergocalciferol (Drisdol 50,000 Intl Units Cap) 1 cap PO Q7D [facility] Last Admin: 12/24/17 13:49 Dose: 1 cap Glucagon (Glucagen Diagnostic Kit) 0 mg IM STAT PRN; Protocol PRN Reason: Hypoglycemia Protocol Home Med (Insulin Glargine,Hum.Rec.Anlog [Basaglar Kwikpen U-100]) 13 unit SC HS [facility] Last Admin: 12/23/17 22:08 Dose: Not Given Sodium Chloride (Sodium Chloride 0.45%) 500 mls @ 75 mls/hr IV .Q6H40M [facility] Stop: 12/25/17 11:47 Last Admin: 12/24/17 12:06 Dose: 75 mls/hr Insulin Human Lispro (Humalog) 0 units SC ACHS [facility]; Protocol Last Admin: 12/24/17 12:13 Dose: 3 units Lorazepam (Ativan) 1 mg IVP PRN PRN PRN Reason: Seizure activity Ondansetron HCl (Zofran Inj) 6 mg IVP ACHS [facility] Pantoprazole Sodium (Protonix Ec Tab) 40 mg PO DAILY [facility] Last Admin: 12/24/17 13:51 Dose: 40 mg - Labs Labs: 12/24/17 05:00 12/24/17 05:00 PT 10.9 Seconds (9.8-13.1) 12/22/17 10:20 INR 1.0 12/22/17 10:20 APTT 27.2 Seconds (25.6-37.1) 12/22/17 10:20 - Additional Findings Additional findings: - Constitutional Appears: No Acute Distress - Head Exam Head Exam: ATRAUMATIC, NORMAL INSPECTION - Eye Exam Eye Exam: EOMI - ENT Exam ENT Exam: Mucous Membranes Dry - Neck Exam Neck exam: Positive for: Full Rom, Normal Inspection - Respiratory Exam Respiratory Exam: NORMAL BREATHING PATTERN. absent: Rales, Rhonchi, Wheezes - Cardiovascular Exam Cardiovascular Exam: REGULAR RHYTHM, +S1, +S2 - GI/Abdominal Exam GI & Abdominal Exam: Normal Bowel Sounds, Soft. absent: Tenderness - Extremities Exam Extremities exam: Positive for: normal inspection. Negative for: calf tenderness, pedal edema - Back Exam Back exam: absent: CVA tenderness (L), CVA tenderness (R) - Neurological Exam Neurological exam: Alert, Oriented x3 Assessment and Plan - Assessment and Plan (Free Text) Assessment: 27 y/o F with a PMHx of DM1, CKD and gastroparesis admitted for evaluation and management of severe hypoglycemic episodes. PLAN: --Afebrile --Will advance diet as tolerated. --Gentle hydration and Mediport IV access as per Nephrology. --Gastroenterology on board, Dr Rodriguez --Nephrology consult on board, Dr Martines --Endocrinology consult on board, Dr Charles --Neurology consult, Dr Kent. Ruled out seizures. --Cardiology consult, Dr Tinajero. --Continue management as ordered. Case discussed with Dr Shelia Williamson, PGY-2 <Bass,Shashi L - Last Filed: 01/03/18 23:36> Objective - Vital Signs/Intake and Output Vital Signs (last 24 hours): Temp Pulse Resp BP Pulse Ox 98.4 F 90 20 148/97 H 99 01/03/18 20:29 01/03/18 21:00 01/03/18 20:29 01/03/18 20:29 01/03/18 20:29 Intake and Output: 01/03/18 01/04/18 18:59 06:59 Intake Total 950 Balance 950 - Medications Medications: Current Medications Acetaminophen (Tylenol 325mg Tab) 650 mg PO Q4 PRN PRN Reason: Pain, moderate (4-7) Amlodipine Besylate (Norvasc) 10 mg PO DAILY [facility] Last Admin: 01/03/18 09:21 Dose: 10 mg Calcitriol (Rocaltrol) 0.25 mcg PO MWF [facility] Last Admin: 01/01/18 08:37 Dose: 0.25 mcg Clonidine HCl (Catapres-Tts2 0.2 Mg/24 Hr) 1 patch TD Q7D [facility] Last Admin: 01/02/18 10:08 Dose: 1 patch Dextrose (Dextrose 50% Inj) 0 ml IV STAT PRN; Protocol PRN Reason: Hypoglycemia Protocol Last Admin: 12/29/17 16:35 Dose: 50 ml Dextrose (Glutose 15) 0 gm PO ONCE PRN; Protocol PRN Reason: Hypoglycemia Protocol Diphenhydramine HCl (Benadryl) 50 mg PO Q6 PRN PRN Reason: Itching / Pruritus Last Admin: 01/03/18 21:45 Dose: 50 mg Ergocalciferol (Drisdol 50,000 Intl Units Cap) 1 cap PO Q7D [facility] Last Admin: 12/31/17 17:08 Dose: Not Given Famotidine (Pepcid) 20 mg PO DAILY [facility] Last Admin: 01/03/18 09:22 Dose: 20 mg Glucagon (Glucagen Diagnostic Kit) 0 mg IM STAT PRN; Protocol PRN Reason: Hypoglycemia Protocol Hydroxyzine HCl (Atarax) 25 mg PO HS PRN PRN Reason: Anxiety Last Admin: 01/03/18 21:50 Dose: 25 mg Insulin Detemir (Levemir) 20 units SC HS [facility] Last Admin: 01/03/18 22:06 Dose: 20 u Insulin Human Lispro (Humalog) 0 units SC ACHS [facility] Last Admin: 01/03/18 21:52 Dose: 4 units Insulin Human Lispro (Humalog) 10 units SC AC [facility] Last Admin: 01/03/18 18:02 Dose: Not Given Labetalol HCl (Trandate) 20 mg IVP Q4H PRN PRN Reason: Systolic Blood Pressure Last Admin: 01/01/18 09:10 Dose: 20 mg Lorazepam (Ativan) 0.5 mg IVP Q8 PRN PRN Reason: Anxiety Last Admin: 01/03/18 21:51 Dose: 0.5 mg Mirtazapine (Remeron) 7.5 mg PO HS [facility] Last Admin: 01/03/18 21:45 Dose: 7.5 mg Morphine Sulfate (Morphine) 2 mg IVP Q8 PRN PRN Reason: Pain, severe (8-10) Ondansetron HCl (Zofran Inj) 6 mg IVP ACHS [facility] Last Admin: 01/03/18 21:51 Dose: 6 mg Pantoprazole Sodium (Protonix Ec Tab) 40 mg PO DAILY [facility] Last Admin: 01/03/18 09:22 Dose: 40 mg - Labs Labs: 01/02/18 18:06 01/02/18 18:06 PT 10.9 Seconds (9.8-13.1) 12/22/17 10:20 INR 1.0 12/22/17 10:20 APTT 27.2 Seconds (25.6-37.1) 12/22/17 10:20 Assessment and Plan - Assessment and Plan (Free Text) Plan: I was present during evaluation and discussed with Dr Kramer re plans of care and mgt. Shashi Bass M.D.
--- NOTE | 2017-12-24 19:24 | PN ---
DATE: 12/24/2017 SUBJECTIVE: The patient is still experiencing epigastric discomfort, but she is tolerating liquids. No retrosternal chest pain. PHYSICAL EXAMINATION VITAL SIGNS: Blood pressure 152/93, heart rate 97, temperature 98.5, respirations 18. HEENT: Facial edema. CHEST: Clear. HEART: S1 and S2 regular. EXTREMITIES: No edema. LABORATORY DATA: Hemoglobin and hematocrit of 9.4 and 29.2. White count and platelet count are within normal limits. Today's SMA-7: Sodium 132, potassium 4.4, chloride 104, CO2 of 20, glucose 170, BUN 37, creatinine 5.1. ASSESSMENT: 1. Gastroparesis. 2. Chronic renal insufficiency. 3. Uncontrolled diabetes mellitus. 4. Borderline troponin elevation. RECOMMENDATIONS: Continue clonidine patch and oral Norvasc. Obtain scan once a negative urine test is obtained. Darryl Tinajero MD
[2017-12-24 21:06] LABS: SQUAMOUS EPITHIAL < 1 /hpf (0-5); URINE BACTERIA RARE (<OCC); URINE BILIRUBIN NEGATIVE (NEGATIVE); URINE BLOOD NEGATIVE (NEGATIVE); URINE CLARITY CLEAR (Clear); URINE COLOR STRAW (YELLOW); URINE GLUCOSE (UA) >=500 mg/dL (Normal); URINE HYALINE CAST 0-2 /hpf (0-2); URINE LEUKOCYTE ESTERASE NEG Leu/uL (Negative); URINE PROTEIN 100 mg/dL (NEGATIVE); URINE UROBILINOGEN 0.2-1.0 mg/dL (0.2-1.0)
[2017-12-24] MEDS: Insulin Detemir 100 Units/ml Inj SC SCH (21:44)
--- NOTE | 2017-12-25 06:57 | CP.PCM.PN ---
Subjective - Date & Time of Evaluation Date of Evaluation: 12/24/17 Time of Evaluation: 15:30 - Subjective Subjective: 27 yo F w/ htn, DM w/ severe gastroparesis, diabetic nephropathy w/ nephrotic syndrome, and CKD IV, admitted with gastroparesis flare; Patient not vomiting today; tolerating soft diet; no shortness of breath; urinating well; Objective - Vital Signs/Intake and Output Vital Signs (last 24 hours): Temp Pulse Resp BP Pulse Ox 98 F 82 16 169/107 H 100 12/25/17 04:44 12/25/17 04:44 12/25/17 04:44 12/25/17 04:44 12/25/17 04:44 - Medications Medications: Current Medications Acetaminophen (Tylenol 325mg Tab) 650 mg PO Q4 PRN PRN Reason: Pain, moderate (4-7) Amlodipine Besylate (Norvasc) 10 mg PO DAILY [facility] Clonidine HCl (Catapres Tts1 0.1 Mg/24 Hr) 1 patch TD Q7D [facility] Last Admin: 12/22/17 16:44 Dose: 1 patch Dextrose (Dextrose 50% Inj) 0 ml IV STAT PRN; Protocol PRN Reason: Hypoglycemia Protocol Dextrose (Glutose 15) 0 gm PO ONCE PRN; Protocol PRN Reason: Hypoglycemia Protocol Diphenhydramine HCl (Benadryl) 50 mg PO Q6 PRN PRN Reason: Itching / Pruritus Last Admin: 12/24/17 20:18 Dose: 50 mg Ergocalciferol (Drisdol 50,000 Intl Units Cap) 1 cap PO Q7D [facility] Last Admin: 12/24/17 13:49 Dose: 1 cap Famotidine (Pepcid) 20 mg PO DAILY [facility] Last Admin: 12/24/17 21:45 Dose: Not Given Glucagon (Glucagen Diagnostic Kit) 0 mg IM STAT PRN; Protocol PRN Reason: Hypoglycemia Protocol Hydroxyzine HCl (Atarax) 25 mg PO HS PRN PRN Reason: Anxiety Last Admin: 12/24/17 21:44 Dose: 25 mg Insulin Detemir (Levemir) 10 units SC HS [facility] Last Admin: 12/24/17 21:44 Dose: 10 units Insulin Human Lispro (Humalog) 4 units SC AC [facility] Last Admin: 12/24/17 16:38 Dose: 4 units Insulin Human Lispro (Humalog) 0 units SC [facility] Last Admin: 12/24/17 21:44 Dose: Not Given Lorazepam (Ativan) 1 mg IVP PRN PRN PRN Reason: Seizure activity Ondansetron HCl (Zofran Inj) 6 mg IVP ACHS [facility] Last Admin: 12/24/17 22:27 Dose: 6 mg Pantoprazole Sodium (Protonix Ec Tab) 40 mg PO DAILY [facility] Last Admin: 12/24/17 13:51 Dose: 40 mg - Labs Labs: 12/24/17 05:00 12/24/17 05:00 PT 10.9 Seconds (9.8-13.1) 12/22/17 10:20 INR 1.0 12/22/17 10:20 APTT 27.2 Seconds (25.6-37.1) 12/22/17 10:20 - Constitutional Appears: Non-toxic, No Acute Distress - Eye Exam Eye Exam: Normal appearance - Respiratory Exam Respiratory Exam: Clear to Ausculation Bilateral. absent: Respiratory Distress - Cardiovascular Exam Cardiovascular Exam: RRR, +S1, +S2 - GI/Abdominal Exam GI & Abdominal Exam: Soft. absent: Distended, Tenderness - Extremities Exam Additional comments: trace b/l lower leg edema; - Neurological Exam Neurological Exam: Alert, Awake - Psychiatric Exam Psychiatric exam: Normal Mood. absent: Agitated - Skin Skin Exam: Warm. absent: Cyanosis Assessment and Plan (1) Acute on chronic renal insufficiency Assessment & Plan: NCIKI on CKD IV; serum creat ~5 is still well above baseline (low 3's); otherwise stable volume and electrolyte status; again had detailed discussion regarding terminal press operator prognosis and need to plan for ESRD; patient is hopeful for transplant with living donor though her initial eval is later this month; discussed dialysis options and that dialysis would be a bridge to transplant but patient thinks she can avoid dialysis; will continue to chemical dependency counselor her; Regarding need for fdc IV access for blood draws/meds in patient with very difficult venipuncture, discussed options at length with IR; port-a-cath is prone to infection/clotting, especially if used by non-chemo nurses; better option would be tunneled direct IJ catheter but also prone to infection if patient doesn't care for it properly; need to avoid PICC lines to preserve peripheral veins; for now, we will plan to remove temp femoral triple lumen MAYCO once there is no need for IV meds/IVF; will decide on tunneled IJ line at another time; -Giving gentle IVF for now with 500 cc 1/2NS at 75 cc/hr; Status: Acute (2) CKD (chronic kidney disease), stage IV Assessment & Plan: see above; discussed PD v HD, PD would be problematic due to erratic sugars and recurrent gastroparesis flares (PD fluid contains dextrose); discussed need for AVF creation, patient not mentally ready for it yet; Status: Chronic (3) Hypertensive CKD (chronic kidney disease) Assessment & Plan: BP elevated, will increase amlodipine to 10 mg; continue clonidine patch 0.1 mg; Status: Chronic (4) Anemia in CKD (chronic kidney disease) Assessment & Plan: Hgb below goal; will wait for BP to be better controlled before giving dose of EPO; Status: Chronic (5) Nephrotic syndrome Status: Chronic (6) Diabetes Status: Acute
--- NOTE | 2017-12-25 07:52 | PN ---
DATE: 12/24/2017 LOCATION: Room 406 SUBJECTIVE: This is a 27-year-old female with recent uncontrolled type 1 insulin-dependent diabetes presenting here with acute exacerbation of diabetic gastroparesis and is now being followed closely for metabolic management. Her glycemic levels are fluctuating, but improved and the glucose values have ranged from 205 to 485 mg/dL. Her chemistries today showed a BUN of 37, sodium 132, potassium 4.4, chloride 104, CO2 of 20, glucose 470 and creatinine 5.1. So at this time, we will modify once again her basal and bolus insulin regimen and resume her Humalog given as 4 units t.i.d. before meals to start today. PLAN: We will resume also her basal insulin given as Levemir at 10 units subcu at bedtime daily as given. This was apparently discontinued by the primary physician today because of overnight symptomatic hypoglycemia as noted. We will modify the coverage scale to obviate hypoglycemia and detailed orders have been given. We will obtain serial chemistries and supplement accordingly as needed. We will follow. Yamileth Charles MD
[2017-12-25] MEDS: Insulin Lispro (humaLOG) 100 Units/ml Inj SC SCH ×7 (07:54→21:26)
[2017-12-25] MEDS: Pantoprazole 40 mg EC Tab PO SCH (08:22)
--- NOTE | 2017-12-25 08:51 | CP.PCM.PN ---
<Andrew Kramer - Last Filed: 12/25/17 08:47> Subjective - Date & Time of Evaluation Date of Evaluation: 12/25/17 Time of Evaluation: 07:12 - Subjective Subjective: 27 y/o F was seens and examined by bedside with Dr Rg. Pt reports feeling better, has started to eat solid food yesterday, denies nausea, vomiting. Pt afebrile, NO acute events overnight. Objective - Vital Signs/Intake and Output Vital Signs (last 24 hours): Temp Pulse Resp BP Pulse Ox 98 F 82 16 169/107 H 100 12/25/17 04:44 12/25/17 04:44 12/25/17 04:44 12/25/17 04:44 12/25/17 04:44 - Medications Medications: Current Medications Acetaminophen (Tylenol 325mg Tab) 650 mg PO Q4 PRN PRN Reason: Pain, moderate (4-7) Amlodipine Besylate (Norvasc) 10 mg PO DAILY [facility] Clonidine HCl (Catapres Tts1 0.1 Mg/24 Hr) 1 patch TD Q7D [facility] Last Admin: 12/22/17 16:44 Dose: 1 patch Dextrose (Dextrose 50% Inj) 0 ml IV STAT PRN; Protocol PRN Reason: Hypoglycemia Protocol Dextrose (Glutose 15) 0 gm PO ONCE PRN; Protocol PRN Reason: Hypoglycemia Protocol Diphenhydramine HCl (Benadryl) 50 mg PO Q6 PRN PRN Reason: Itching / Pruritus Last Admin: 12/24/17 20:18 Dose: 50 mg Ergocalciferol (Drisdol 50,000 Intl Units Cap) 1 cap PO Q7D [facility] Last Admin: 12/24/17 13:49 Dose: 1 cap Famotidine (Pepcid) 20 mg PO DAILY [facility] Last Admin: 12/25/17 08:22 Dose: 20 mg Glucagon (Glucagen Diagnostic Kit) 0 mg IM STAT PRN; Protocol PRN Reason: Hypoglycemia Protocol Hydroxyzine HCl (Atarax) 25 mg PO HS PRN PRN Reason: Anxiety Last Admin: 12/24/17 21:44 Dose: 25 mg Insulin Detemir (Levemir) 10 units SC HS [facility] Last Admin: 12/24/17 21:44 Dose: 10 units Insulin Human Lispro (Humalog) 4 units SC AC [facility] Last Admin: 12/25/17 08:23 Dose: 4 units Insulin Human Lispro (Humalog) 0 units SC ACHS [facility] Last Admin: 12/25/17 07:54 Dose: Not Given Lorazepam (Ativan) 1 mg IVP PRN PRN PRN Reason: Seizure activity Ondansetron HCl (Zofran Inj) 6 mg IVP ACHS [facility] Last Admin: 12/25/17 08:22 Dose: 6 mg Pantoprazole Sodium (Protonix Ec Tab) 40 mg PO DAILY [facility] Last Admin: 12/25/17 08:22 Dose: 40 mg - Labs Labs: 12/24/17 05:00 12/24/17 05:00 PT 10.9 Seconds (9.8-13.1) 12/22/17 10:20 INR 1.0 12/22/17 10:20 APTT 27.2 Seconds (25.6-37.1) 12/22/17 10:20 - Additional Findings Additional findings: - Constitutional Appears: No Acute Distress - Head Exam Head Exam: ATRAUMATIC, NORMAL INSPECTION - Eye Exam Eye Exam: EOMI - ENT Exam ENT Exam: Mucous Membranes Dry - Neck Exam Neck exam: Positive for: Full Rom, Normal Inspection - Respiratory Exam Respiratory Exam: NORMAL BREATHING PATTERN. absent: Rales, Rhonchi, Wheezes - Cardiovascular Exam Cardiovascular Exam: REGULAR RHYTHM, +S1, +S2 - GI/Abdominal Exam GI & Abdominal Exam: Normal Bowel Sounds, Soft. absent: Tenderness - Extremities Exam Extremities exam: Positive for: normal inspection. Negative for: calf tenderness, pedal edema - Back Exam Back exam: absent: CVA tenderness (L), CVA tenderness (R) - Neurological Exam Neurological exam: Alert, Oriented x3 Assessment and Plan - Assessment and Plan (Free Text) Assessment: 27 y/o F with a PMHx of DM1, CKD and gastroparesis admitted for evaluation and management of severe hypoglycemic episodes. PLAN: --Afebrile, tolerating PO --Gentle hydration --Remove femoral tripple lumen. --Tunneled direct IJ catheter, recommended by payroll accountant. --Insulin therapy --Gastroenterology on board, Dr Rodriguez --Nephrology consult on board, Dr Martines --Endocrinology consult on board, Dr Charles --Cardiology consult, Dr Tinajero. --Continue management as ordered. Case discussed with Dr Rg who agrees with the above. ZORAN Williamson PGY-2 <Garret Rg - Last Filed: 12/26/17 06:51> Objective - Vital Signs/Intake and Output Vital Signs (last 24 hours): Temp Pulse Resp BP Pulse Ox 98.1 F 85 18 163/94 H 99 12/26/17 05:00 12/26/17 05:00 12/26/17 05:00 12/26/17 05:00 12/26/17 05:00 - Medications Medications: Current Medications Acetaminophen (Tylenol 325mg Tab) 650 mg PO Q4 PRN PRN Reason: Pain, moderate (4-7) Amlodipine Besylate (Norvasc) 10 mg PO DAILY [facility] Last Admin: 12/25/17 10:18 Dose: 10 mg Clonidine HCl (Catapres Tts1 0.1 Mg/24 Hr) 1 patch TD Q7D [facility] Last Admin: 12/22/17 16:44 Dose: 1 patch Dextrose (Dextrose 50% Inj) 0 ml IV STAT PRN; Protocol PRN Reason: Hypoglycemia Protocol Dextrose (Glutose 15) 0 gm PO ONCE PRN; Protocol PRN Reason: Hypoglycemia Protocol Diphenhydramine HCl (Benadryl) 50 mg PO Q6 PRN PRN Reason: Itching / Pruritus Last Admin: 12/25/17 21:15 Dose: 50 mg Ergocalciferol (Drisdol 50,000 Intl Units Cap) 1 cap PO Q7D [facility] Last Admin: 12/24/17 13:49 Dose: 1 cap Famotidine (Pepcid) 20 mg PO DAILY [facility] Last Admin: 12/25/17 08:22 Dose: 20 mg Glucagon (Glucagen Diagnostic Kit) 0 mg IM STAT PRN; Protocol PRN Reason: Hypoglycemia Protocol Hydroxyzine HCl (Atarax) 25 mg PO HS PRN PRN Reason: Anxiety Last Admin: 12/25/17 23:29 Dose: 25 mg Insulin Detemir (Levemir) 12 units SC HS [facility] Last Admin: 12/25/17 22:24 Dose: Not Given Insulin Human Lispro (Humalog) 0 units SC A[facility] Last Admin: 12/26/17 06:32 Dose: Not Given Insulin Human Lispro (Humalog) 6 units SC AC [facility] Lorazepam (Ativan) 1 mg IVP PRN PRN PRN Reason: Seizure activity Ondansetron HCl (Zofran Inj) 6 mg IVP ACHS [facility] Last Admin: 12/25/17 21:18 Dose: 6 mg Pantoprazole Sodium (Protonix Ec Tab) 40 mg PO DAILY [facility] Last Admin: 12/25/17 08:22 Dose: 40 mg - Labs Labs: 12/24/17 05:00 12/24/17 05:00 PT 10.9 Seconds (9.8-13.1) 12/22/17 10:20 INR 1.0 12/22/17 10:20 APTT 27.2 Seconds (25.6-37.1) 12/22/17 10:20 Assessment and Plan - Assessment and Plan (Free Text) Assessment: Patient was personally seen and examined by me in rounds with residents. Available labs and diagnostic data reviewed. Case, Patient's condition and management plan discussed with residents in rounds. Agree with resident's progress note. Plan: As ordered.
--- NOTE | 2017-12-25 12:21 | CON ---
DATE: 12/23/2017 REFERRING DOCTOR: REASON FOR CONSULTATION: Abdominal pain, nausea, vomiting, gastroparesis. HISTORY OF PRESENT ILLNESS: This is a 27-year-old female, well known to my office and service from multiple admissions for nausea, vomiting, and hyperemesis, comes in again for the same thing. She has a history of diabetes, had poorly controlled CKD and gastroparesis, comes in with history of nausea, vomiting, and pain. The vomiting has been she cannot eat. There is questionable episode of seizure and hypoglycemia. Currently, the patient is lying in bed, comfortable, mentating well but in mild abdominal distress. PAST MEDICAL HISTORY: As above. PAST SURGICAL HISTORY: As above. MEDICATIONS: Have been reviewed. REVIEW OF SYSTEMS: All other systems have been reviewed and negative apart from the HPI. PHYSICAL EXAMINATION: VITAL SIGNS: Here in the hospital are grossly unremarkable. GENERAL: A pleasant young female, lying in bed comfortably, in no apparent distress. HEENT: Head is normocephalic and atraumatic. Eyes: Pupils are equally reactive to light bilaterally. No conjunctival pallor or icterus. NECK: Supple. Normal range of motion. No lymphadenopathy appreciated. LUNGS: Coarse breath sounds bilaterally. HEART: S1, S2 regular rate and rhythm. ABDOMEN: Soft , bowel sounds present. No rebound. No guarding. RECTAL: Deferred. EXTREMITIES: Pulses present bilaterally. SKIN: Warm, dry, and intact. NEUROLOGIC: A and O x3. LABORATORY DATA: All labs and radiology have been reviewed. WBC is 13.1, hemoglobin 9.8, hematocrit 30.2. D-Dimer is 686. Sugars . ASSESSMENT: This is a 27-year-old female with gastroparesis. From gastrointestinal standpoint, tight sugar control, avoiding hypoglycemia, Pepcid b.i.d., Reglan t.i.d., Zofran every 6 hours p.r.n. Advance diet as tolerated. Thank you for the consult. Kit Rodriguez MD/ PhD cc: [facility] # [phone]
[2017-12-25] MEDS: Insulin Detemir 100 Units/ml Inj SC SCH ×2 (21:25→22:24)
--- NOTE | 2017-12-25 22:53 | PN ---
DATE: 12/25/2017 SUBJECTIVE: The patient is tolerating diet. No abdominal pain or chest pain. PHYSICAL EXAMINATION: VITAL SIGNS: Blood pressure 150/89, heart rate 86, temperature 98.4, respirations 16. HEENT: Normocephalic. CHEST: Clear. HEART: S1 and S2 are regular. EXTREMITIES: 1 + pitting edema. LABORATORY DATA: Hemoglobin and hematocrit 9.4 and 29.2, white count and platelet count are within normal limits. Today's blood sugars are 153 and 250. ASSESSMENT: 1. Borderline troponin, unlikely represent acute myocardial injury. 2. Gastroparesis. 3. Chronic renal insufficiency. 4. Uncontrolled diabetes mellitus. RECOMMENDATIONS: Continue current clonidine patch at 0.1 mg weekly. Continue Norvasc 10 mg once a day, Pepcid 20 mg twice a day, mg intravenously twice a day. Darryl Tinajero MD
--- NOTE | 2017-12-26 02:19 | PN ---
DATE: 12/25/2017 ENDOCRINOLOGY FOLLOWUP NOTE LOCATION: In room 406. This is a 27-year-old female with recent uncontrolled type 1 insulin-dependent diabetes, now being followed closely for metabolic management. She presented here with intractable vomiting with diffuse abdominal pain and has now been advanced to a solid food as noted since she was unable to tolerate the initial orders on admission as given. Her oral intake, however, remains suboptimal at this time as per the nursing staff. Her glucose levels are fluctuating with glucose values ranging from 102-250 and 414 mg per dL. Her chemistries showed a BUN of 37, sodium 132, potassium 4.4, chloride 104, CO2 20, glucose 470, and creatinine 5.1. So, at this time, we will modify once again her basal and bolus insulin regimen and increase the Humalog to 6 units subcutaneously t.i.d. before meals to start tomorrow morning at breakfast time. We will also increase her basal insulin to Levemir given as 12 units subcutaneously at bedtime daily to start tonight. We will titrate incremental as indicated to optimize metabolic control. We will follow. Yamileth Charles MD
[2017-12-26] MEDS: Insulin Lispro (humaLOG) 100 Units/ml Inj SC SCH ×7 (06:32→21:53)
[2017-12-26] MEDS: Pantoprazole 40 mg EC Tab PO SCH (09:24)
[2017-12-26] MEDS ORDERED: Dextrose 50% SYRINGE Inj (50 ml) ONE (12:57)
[2017-12-26] MEDS ORDERED: Dextrose 50% SYRINGE Inj (50 ml) IVP ONE (13:04)
--- NOTE | 2017-12-26 13:17 | PN ---
DATE: 12/26/2017 SUBJECTIVE: The patient seen and examined. Interim events noted. Consults noted and appreciated. The patient remains in progressive care unit, on telemetry monitoring, feels much better, slept well. Overall intake much improved. PHYSICAL EXAMINATION: GENERAL: The patient is in no acute distress. VITAL SIGNS: Stable. HEART: S1 and S2, normal and regular. LUNGS: Good bilateral air exchange. ABDOMEN: Soft and nontender. No organomegaly. No fluid. Bowel sounds are plus and normal. No sign of acute abdomen. No guarding. No rigidity. No rebound. EXTREMITIES: No edema. No calf swelling. No tenderness. No acute ischemia. CENTRAL NERVOUS SYSTEM: Essentially unchanged. DIAGNOSTIC DATA: Creatinine level still remains 5.1 and elevated. ASSESSMENT AND PLAN: Plan as ordered. Garret Rg MD
--- NOTE | 2017-12-26 14:09 | CP.PCM.PN ---
Subjective - Date & Time of Evaluation Date of Evaluation: 12/26/17 Time of Evaluation: 14:09 - Subjective Subjective: pt is not in acute distress, no cp, no sob Objective - Vital Signs/Intake and Output Vital Signs (last 24 hours): Temp Pulse Resp BP Pulse Ox 98.2 F 83 18 153/95 H 100 12/26/17 08:15 12/26/17 09:23 12/26/17 08:15 12/26/17 09:23 12/26/17 08:15 - Medications Medications: Current Medications Acetaminophen (Tylenol 325mg Tab) 650 mg PO Q4 PRN PRN Reason: Pain, moderate (4-7) Amlodipine Besylate (Norvasc) 10 mg PO DAILY [facility] Last Admin: 12/26/17 09:23 Dose: 10 mg Clonidine HCl (Catapres-Tts2 0.2 Mg/24 Hr) 1 patch TD Q7D [facility] Last Admin: 12/26/17 09:17 Dose: 1 patch Dextrose (Dextrose 50% Inj) 0 ml IV STAT PRN; Protocol PRN Reason: Hypoglycemia Protocol Dextrose (Glutose 15) 0 gm PO ONCE PRN; Protocol PRN Reason: Hypoglycemia Protocol Diphenhydramine HCl (Benadryl) 50 mg PO Q6 PRN PRN Reason: Itching / Pruritus Last Admin: 12/25/17 21:15 Dose: 50 mg Ergocalciferol (Drisdol 50,000 Intl Units Cap) 1 cap PO Q7D [facility] Last Admin: 12/24/17 13:49 Dose: 1 cap Famotidine (Pepcid) 20 mg PO DAILY [facility] Last Admin: 12/26/17 09:24 Dose: 20 mg Glucagon (Glucagen Diagnostic Kit) 0 mg IM STAT PRN; Protocol PRN Reason: Hypoglycemia Protocol Hydroxyzine HCl (Atarax) 25 mg PO HS PRN PRN Reason: Anxiety Last Admin: 12/25/17 23:29 Dose: 25 mg Insulin Detemir (Levemir) 12 units SC HS [facility] Last Admin: 12/25/17 22:24 Dose: Not Given Insulin Human Lispro (Humalog) 0 units SC ACHS [facility] Last Admin: 12/26/17 13:07 Dose: Not Given Insulin Human Lispro (Humalog) 6 units SC AC [facility] Last Admin: 12/26/17 13:07 Dose: Not Given Lorazepam (Ativan) 1 mg IVP PRN PRN PRN Reason: Seizure activity Ondansetron HCl (Zofran Inj) 6 mg IVP ACHS [facility] Last Admin: 12/26/17 09:34 Dose: 6 mg Pantoprazole Sodium (Protonix Ec Tab) 40 mg PO DAILY [facility] Last Admin: 12/26/17 09:24 Dose: 40 mg - Labs Labs: 12/24/17 05:00 12/24/17 05:00 PT 10.9 Seconds (9.8-13.1) 12/22/17 10:20 INR 1.0 12/22/17 10:20 APTT 27.2 Seconds (25.6-37.1) 12/22/17 10:20 - Constitutional Appears: Well, Non-toxic, No Acute Distress - Head Exam Head Exam: ATRAUMATIC, NORMAL INSPECTION - Eye Exam Eye Exam: EOMI, Normal appearance, PERRL Pupil Exam: NORMAL ACCOMODATION - ENT Exam ENT Exam: Mucous Membranes Dry - Neck Exam Neck Exam: Full ROM - Respiratory Exam Respiratory Exam: Clear to Ausculation Bilateral, NORMAL BREATHING PATTERN - Cardiovascular Exam Cardiovascular Exam: REGULAR RHYTHM, +S1, +S2 - GI/Abdominal Exam GI & Abdominal Exam: Soft, Normal Bowel Sounds - Rectal Exam Rectal Exam: Deferred - Neurological Exam Neurological Exam: Alert, Awake, CN II-XII Intact, Oriented x3 - Psychiatric Exam Psychiatric exam: Normal Affect, Normal Mood - Skin Skin Exam: Normal Color Assessment and Plan - Assessment and Plan (Free Text) Assessment: 27 yo Female with pmh/o htn,dm, ckd, proteinuria, diabetic gastroparesis was admitted with increased bun/cr 1. Travis on ckd-4 2. Dehydration 3. Dm gastroparesis 4. DM 5. HTN encourage po intake start ivf 1/2 ns at 70 ml/hr daily BMP covering
[2017-12-26] MEDS: Sodium Chloride 0.45% 1,000 ML IV SCH (15:13)
--- NOTE | 2017-12-26 16:23 | PN ---
DATE: 12/26/2017 ENDOCRINOLOGY FOLLOWUP NOTE LOCATION: In room 406. SUBJECTIVE: This is a 27-year-old female with recent uncontrolled type 1 insulin-dependent diabetes, now being followed closely for metabolic management. Her glycemic levels are fluctuating, but improved and the glucose values have ranged from 294 to 414 mg/dL as noted last night at bedtime. Her oral intake remains variable and suboptimal as per the nursing staff. LABORATORY DATA: Her chemistry showed a BUN of 37, sodium 132, potassium 4.4, chloride 104, CO2 of 20, glucose 417 and creatinine 5.1. ASSESSMENT AND PLAN: So at this time, we will modify once again her basal and bolus insulin regimen and change the Humalog to 6 units t.i.d. before meals to start today as ordered. We will also increase the basal insulin with Levemir to be given as 12 units subcutaneously at bedtime daily, which was started last night as ordered. We will continue the low dose correction scale using Humalog insulin as given. We will follow and advise accordingly. Yamileth Charles MD
[2017-12-26] MEDS: Insulin Detemir 100 Units/ml Inj SC SCH (21:55)
--- NOTE | 2017-12-26 22:39 | PN ---
DATE: 12/26/2017 SUBJECTIVE: The patient is experiencing abdominal discomfort. No vomiting. PHYSICAL EXAMINATION: VITAL SIGNS: Blood pressure 161/99, heart rate 86, temperature 98.5, respirations 17. HEENT: Pale conjunctiva and facial edema. CHEST: Clear. HEART: S1 and S2 regular. EXTREMITIES: 1+ pitting edema. LABORATORY DATA: Today's blood sugar is 294. ASSESSMENT: 1. Borderline troponin elevation. 2. Advanced renal insufficiency. 3. Gastroparesis. 4. Uncontrolled diabetes mellitus. RECOMMENDATIONS: Continue clonidine patch 0.2 mg weekly. Continue Norvasc 10 mg once a day. I did order V/Q scan and venous Doppler of lower extremity. However, the patient refused, and she is willing to go at this time. I will instruct the nurse to renew the order. Darryl Tinajero MD
[2017-12-27] MEDS: Sodium Chloride 0.45% 1,000 ML IV SCH ×2 (05:19→22:45)
[2017-12-27] MEDS: Insulin Lispro (humaLOG) 100 Units/ml Inj SC SCH ×7 (06:46→22:43)
--- NOTE | 2017-12-27 09:23 | PN ---
DATE: 12/27/2017 SUBJECTIVE: The patient seen and examined. Interim events noted. Consults noted and appreciated. The patient remains in progressive care unit, on telemetry monitoring. The patient feels okay, tolerating food very well. No nausea, no vomiting. No abdominal pain. The patient is ambulating. Denies any new complaints. PHYSICAL EXAMINATION: GENERAL: The patient is in no acute distress. VITAL SIGNS: Stable. HEART: S1 and S2, normal, regular. LUNGS: Good bilateral air exchange. ABDOMEN: Soft, nontender. No organomegaly. No fluid. Bowel sounds are plus and normal. No sign of acute abdomen. No guarding, no rigidity, no rebound. EXTREMITIES: No edema. No calf swelling. No tenderness. No acute ischemia. CENTRAL NERVOUS SYSTEM: Essentially unchanged. DIAGNOSTIC DATA: Available diagnostic data reviewed. Telemetry monitoring does not show significant arrhythmias. ASSESSMENT AND PLAN: Overall, the patient's general medical condition is improved. The patient does have elevated creatinine and would require renal replacement therapy although there is no indication of acute renal replacement at this time. Plan as ordered. Garret Rg MD
[2017-12-27] MEDS: Pantoprazole 40 mg EC Tab PO SCH (09:43)
--- NOTE | 2017-12-27 13:18 | PN ---
DATE: 12/27/2017 ENDO FOLLOWUP NOTE LOCATION: Room 416. SUBJECTIVE: This is a 27-year-old female with recent uncontrolled type 1 insulin-dependent diabetes, presenting here with acute exacerbation of diabetic gastroparesis with intractable vomiting and upper abdominal pain and also has concomitant progressive renal insufficiency as noted. Her glycemic levels are fluctuating with the variability of her oral intake as noted. Her glucose levels overnight have ranged from 250 to 294 and 414 mg/dL. Her latest chemistries showed a BUN of 37, sodium 132, potassium 4.4, chloride 104, CO2 20, glucose 470, and creatinine 5.1. ASSESSMENT AND PLAN: So, at this time, we will modify once again her basal and bolus insulin regimen and increase the Levemir to 14 units subcutaneous at bedtime daily to start tonight. However, because of the variability of her oral intake, we will hold off dose adjustments of her Humalog for now and keep her on the Humalog given as 6 units subcutaneous t.i.d. before meals as ordered. We will obtain serial chemistries and supplement accordingly needed. We will follow. Yamileth Charles MD
[2017-12-27] MEDS: NIFEdipine 30 mg ER Tab PO SCH (15:15)
[2017-12-27 18:58] LABS: HEMOGLOBIN 10.1 g/dL (12.0-16.0); MEAN CELL VOLUME 89.8 fl (81.0-99.0); MEAN CORPUSCULAR HEMOGLOBIN 29.1 pg (27.0-31.0); MEAN CORPUSCULAR HGB CONC 32.4 g/dL (33.0-37.0); RBC 3.47 Mil/uL (3.80-5.20); RED CELL DISTRIBUTION WIDTH 14.5 % (11.5-14.5); WHITE BLOOD COUNT 7.4 K/uL (4.8-10.8)
[2017-12-27 19:12] LABS: ALT/SGPT 26 U/L (9-52); AST/SGOT 16 U/L (14-36); BLOOD UREA NITROGEN 43 mg/dl (7-17); GFR NON-AFRICAN AMERICAN 10
[2017-12-27] MEDS: Insulin Detemir 100 Units/ml Inj SC SCH (22:42)
[2017-12-28 06:10] LABS: HEMOGLOBIN 9.2 g/dL (12.0-16.0); MEAN CELL VOLUME 87.9 fl (81.0-99.0); MEAN CORPUSCULAR HEMOGLOBIN 29.1 pg (27.0-31.0); MEAN CORPUSCULAR HGB CONC 33.1 g/dL (33.0-37.0); RBC 3.16 Mil/uL (3.80-5.20); RED CELL DISTRIBUTION WIDTH 14.4 % (11.5-14.5); WHITE BLOOD COUNT 7.6 K/uL (4.8-10.8)
[2017-12-28 06:31] LABS: ALB/GLOB RATIO 0.9 (1.0-2.1); ALBUMIN 2.7 g/dL (3.5-5.0); ALT/SGPT 24 U/L (9-52); AST/SGOT 19 U/L (14-36); BLOOD UREA NITROGEN 48 mg/dl (7-17); CALCIUM 8.3 mg/dL (8.4-10.2); GFR NON-AFRICAN AMERICAN 10
[2017-12-28] MEDS: Insulin Lispro (humaLOG) 100 Units/ml Inj SC SCH ×7 (08:58→22:24)
[2017-12-28] MEDS: NIFEdipine 30 mg ER Tab PO SCH (09:01)
[2017-12-28] MEDS: Pantoprazole 40 mg EC Tab PO SCH (09:02)
[2017-12-28] MEDS: Dextrose 50% SYRINGE Inj (50 ml) IV PRN (11:06)
[2017-12-28 11:56] LABS: BASO # 0.1 K/uL (0.0-0.2); BASO % 1.3 % (0.0-2.0); EOS # 0.4 K/uL (0.0-0.7); EOS % 3.4 % (0.0-4.0); HEMOGLOBIN 9.1 g/dL (12.0-16.0); LYMPH # 2.2 K/uL (1.0-4.3); LYMPH % 19.3 % (20.0-40.0); MEAN CELL VOLUME 89.8 fl (81.0-99.0); MEAN CORPUSCULAR HEMOGLOBIN 28.8 pg (27.0-31.0); MEAN CORPUSCULAR HGB CONC 32.1 g/dL (33.0-37.0); MEAN PLATELET VOLUME 10.5 fl (7.2-11.7); MONO % 8.6 % (0.0-10.0); NEUT # 7.8 K/uL (1.8-7.0); NEUT % 67.4 % (50.0-75.0); RBC 3.17 Mil/uL (3.80-5.20); RED CELL DISTRIBUTION WIDTH 14.5 % (11.5-14.5); WHITE BLOOD COUNT 11.6 K/uL (4.8-10.8)
[2017-12-28 12:05] LABS: CALCIUM 8.3 mg/dL (8.4-10.2)
--- NOTE | 2017-12-28 12:22 | PN ---
DATE: 12/28/2017 SUBJECTIVE: The patient seen and examined. Interim events noted. Consults noted and appreciated. The patient remains in progressive care unit on telemetry monitoring. The patient is sleeping, arousable, feels okay, tolerating diet well. No nausea, no vomiting. No abdominal pain. PHYSICAL EXAMINATION: GENERAL: The patient is in no acute distress. VITAL SIGNS: Stable. HEART: S1, S2, normal and regular. LUNGS: Good bilateral air exchange. ABDOMEN: Soft, nontender. No organomegaly. No fluid. Bowel sounds are plus and normal. No sign of acute abdomen. No guarding, no rigidity, no rebound. EXTREMITIES: No edema. No calf swelling. No tenderness. No acute ischemia. MOTION PICTURE DIRECTOR: Exam is essentially unchanged. DIAGNOSTIC DATA: Available diagnostic data reviewed. Telemetry monitoring does not show significant arrhythmias. ASSESSMENT AND PLAN: Overall, the patient's general medical condition is stable. Plan as ordered. Garret Rg MD
--- NOTE | 2017-12-28 15:24 | RAD ---
Date of service: 12/28/2017 PROCEDURE: CHEST RADIOGRAPH, 1 VIEW HISTORY: required before VQ scan COMPARISON: 12/22/2017 FINDINGS: LUNGS: Clear. PLEURA: No pneumothorax or pleural fluid seen. CARDIOVASCULAR: No aortic atherosclerotic calcification present. Normal. OSSEOUS STRUCTURES: No significant abnormalities. VISUALIZED UPPER ABDOMEN: Normal. OTHER FINDINGS: None. IMPRESSION: No active disease.No significant interval change compared to the prior examination(s).
--- NOTE | 2017-12-28 15:53 | NM ---
Date of service: 12/28/2017 COMPARISON: December 28, 2017 single-view chest TECHNIQUE: 32.7 mCi technetium 99-m DTPA aerosol. 5.0 mCI technetium 99-m MAA administered intravenously. FINDINGS: VENTILATION COMPONENT: Normal.Retention of radionuclide in the tracheobronchial tree and ingestion of radionuclide in the stomach, incidental findings PERFUSION COMPONENT: Normal. IMPRESSION: Negative ventilation perfusion scan for pulmonary embolism.
--- NOTE | 2017-12-28 16:42 | US ---
Date of service: 12/28/2017 PROCEDURE: Upper Extremity Venous Duplex Exam HISTORY: for dialysis access PRIORS: None. TECHNIQUE: Bilateral upper extremity, internal jugular, subclavian, axillary, brachial, ulnar, radial, basilic and upper cephalic veins were evaluated. Flow was assessed with color Doppler, compressibility, assessment of phasic flow and augmentation response. Report prepared by nuclear medical technologist. FINDINGS: RIGHT: 1. Internal Jugular Vein: Compressibility - Fully compressible: Thrombus - None : Flow - Phasic 2. Subclavian Vein:Compressibility - Fully compressible: Thrombus - None : Flow - Phasic 3. Axillary Vein: Compressibility - Fully compressible: Thrombus - None 4. Brachial Vein: Not visible 5. Ulnar Vein:Compressibility - Fully compressible: Thrombus - None 6. Radial Vein:Compressibility - Fully compressible: Thrombus - None 7. Cephalic Vein: Compressibility - Fully compressible: thrombus - None 7.1. Mid Diameter:0.30cm. 8. Basilic Vein: Not visible LEFT: 1. Internal Jugular Vein: Compressibility - Fully compressible: Thrombus - None : Flow - Phasic 2. Subclavian Vein:Compressibility - Fully compressible: Thrombus - None : Flow - Phasic 3. Axillary Vein: Compressibility - Fully compressible: Thrombus - None 4. Brachial Vein: Not visible 5. Ulnar Vein:Compressibility - Fully compressible: Thrombus - None 6. Radial Vein:Compressibility - Fully compressible: Thrombus - None 7. Cephalic Vein: Compressibility - Fully compressible: thrombus - None 7.1. Proximal Diameter: Not visible. Mid Diameter:0.2cm. Distal Diameter: 0.1cm 8. Basilic Vein:Compressibility-not visible OTHER FINDINGS: Right: None. Left: None. IMPRESSION: Right: Diameter measurements of the right cephalic vein is measured 0.3 cm. The right basilic vein is not visible Left: Diameter measurements of the left cephalic vein is measured between 0.1 cm and 0.2 cm and basilic vein is not visible.
--- NOTE | 2017-12-28 18:13 | PN ---
DATE: 12/28/2017 SUBJECTIVE: The patient denies abdominal pain, nausea, or vomiting. No chest pain. PHYSICAL EXAMINATION VITAL SIGNS: Blood pressure 160/103, heart rate 87, temperature 97.9, respirations 20. HEENT: Normocephalic. CHEST: Clear. HEART: S1 and S2 regular. EXTREMITIES: 1+ pitting edema. LABORATORY DATA: Hemoglobin and hematocrit are 9.1 and 28.4, white count 11.4, platelet count 216,000. Today's SMA-7; sodium 134, potassium 3.4, chloride 108, CO2 of 19, glucose 179, BUN 46, creatinine 4.4. ASSESSMENT AND PLAN: 1. Advanced renal insufficiency. 2. Borderline troponin elevation. 3. Gastroparesis. 4. Uncontrolled diabetes mellitus. 5. Uncontrolled hypertension. RECOMMENDATIONS: Continue Norvasc at 10 mg daily, Procardia XL 20 mg daily, Pepcid 20 mg p.o. daily, clonidine patch 0.2 mg weekly. The patient will undergo venous Doppler of the lower extremities as well as ventilation/perfusion scan today. Darryl Tinajero MD
--- NOTE | 2017-12-28 19:59 | PN ---
DATE: 12/28/2017 ENDOCRINOLOGY FOLLOWUP NOTE LOCATION: In room 416. SUBJECTIVE: This is a 27-year-old female with recent uncontrolled type 1 insulin-dependent diabetes, now being followed closely for metabolic management. Her oral intake remains quite variable at this time with persistent dyspepsia and vague upper abdominal pains as noted. Her glycemic profile overnight remains fluctuating and have ranged from 133 to 203 mg/dL. It was less than 20 at pre-lunch time today as noted. Her chemistries showed a BUN of 46, sodium 134, potassium 3.6, chloride 108, CO2 of 19, glucose 179, and creatinine 4.6. So at this time, we will modify once again her basal and bolus insulin regimen and lower the Humalog to 4 units subcu three times a day before meals to start at dinner time today as ordered. We will obtain serial chemistries and supplement accordingly as needed. We will also continue the same basal insulin given as Levemir at 14 units subcu at bedtime daily as given. We will obtain serial chemistries and supplement accordingly as needed. We will follow. Yamileth Charles MD
[2017-12-28] MEDS: Insulin Detemir 100 Units/ml Inj SC SCH (22:25)
--- NOTE | 2017-12-29 08:47 | CP.PCM.PN ---
Subjective - Date & Time of Evaluation Date of Evaluation: 12/28/17 Time of Evaluation: 13:00 - Subjective Subjective: Patient no longer vomiting; tolerating diet; sugars erratic; hypoglycemic this morning; no sob; urinating well; Objective - Vital Signs/Intake and Output Vital Signs (last 24 hours): Temp Pulse Resp BP Pulse Ox 97.8 F 84 16 136/85 99 12/29/17 04:58 12/29/17 04:58 12/29/17 04:58 12/29/17 04:58 12/29/17 04:58 - Medications Medications: Current Medications Acetaminophen (Tylenol 325mg Tab) 650 mg PO Q4 PRN PRN Reason: Pain, moderate (4-7) Amlodipine Besylate (Norvasc) 10 mg PO DAILY [facility] Last Admin: 12/28/17 09:01 Dose: 10 mg Clonidine HCl (Catapres-Tts2 0.2 Mg/24 Hr) 1 patch TD Q7D [facility] Last Admin: 12/26/17 09:17 Dose: 1 patch Dextrose (Dextrose 50% Inj) 0 ml IV STAT PRN; Protocol PRN Reason: Hypoglycemia Protocol Last Admin: 12/28/17 11:06 Dose: 50 ml Dextrose (Glutose 15) 0 gm PO ONCE PRN; Protocol PRN Reason: Hypoglycemia Protocol Diphenhydramine HCl (Benadryl) 50 mg PO Q6 PRN PRN Reason: Itching / Pruritus Last Admin: 12/26/17 18:52 Dose: 50 mg Ergocalciferol (Drisdol 50,000 Intl Units Cap) 1 cap PO Q7D [facility] Last Admin: 12/24/17 13:49 Dose: 1 cap Famotidine (Pepcid) 20 mg PO DAILY [facility] Last Admin: 12/28/17 09:01 Dose: 20 mg Glucagon (Glucagen Diagnostic Kit) 0 mg IM STAT PRN; Protocol PRN Reason: Hypoglycemia Protocol Hydroxyzine HCl (Atarax) 25 mg PO HS PRN PRN Reason: Anxiety Last Admin: 12/26/17 22:00 Dose: 25 mg Insulin Detemir (Levemir) 14 units SC HS [facility] Last Admin: 12/28/17 22:25 Dose: 14 units Insulin Human Lispro (Humalog) 0 units SC ACHS [facility] Last Admin: 12/28/17 22:24 Dose: 4 units Insulin Human Lispro (Humalog) 4 units SC AC [facility] Last Admin: 12/28/17 17:19 Dose: Not Given Nifedipine (Procardia Xl) 30 mg PO DAILY [facility] Last Admin: 12/28/17 09:01 Dose: 30 mg Ondansetron HCl (Zofran Inj) 6 mg IVP ACHS [facility] Last Admin: 12/28/17 22:25 Dose: Not Given Pantoprazole Sodium (Protonix Ec Tab) 40 mg PO DAILY [facility] Last Admin: 12/28/17 09:02 Dose: 40 mg - Labs Labs: 12/28/17 11:51 12/28/17 11:51 PT 10.9 Seconds (9.8-13.1) 12/22/17 10:20 INR 1.0 12/22/17 10:20 APTT 27.2 Seconds (25.6-37.1) 12/22/17 10:20 - Constitutional Appears: Non-toxic, No Acute Distress - Eye Exam Eye Exam: Normal appearance - ENT Exam Additional comments: swollen face (chronic); - Respiratory Exam Respiratory Exam: Clear to Ausculation Bilateral. absent: Respiratory Distress - Cardiovascular Exam Cardiovascular Exam: RRR, +S1, +S2 - GI/Abdominal Exam GI & Abdominal Exam: Soft. absent: Distended, Tenderness - Extremities Exam Additional comments: minimal lower leg edema b/l; - Neurological Exam Neurological Exam: Alert, Awake - Psychiatric Exam Psychiatric exam: Normal Mood. absent: Agitated - Skin Skin Exam: Warm. absent: Cyanosis Assessment and Plan (1) Acute on chronic renal insufficiency Assessment & Plan: NICKI on CKD IV; renal function slightly improved; nevertheless, CKD is progressive and we again discussed today the likelihood of needing HD in the near future (likely within next 6 months); discussed that although she is relatively compensated currently, progressive uremia itself can cause nausea/vomiting at some point; she is now agreeable for AVF creation; vein mapping done today; will discuss with vascular surgery for AVF creation (may have to transfer to another hospital for it; while this is not an emergency, however, given patient's recurrent admissions for gastroparesis, it would be best to get procedure done as soon a possible while she is relatively stable); Status: Acute (2) CKD (chronic kidney disease), stage IV Status: Chronic (3) Hypertensive CKD (chronic kidney disease) Assessment & Plan: BP still elevated; clonidine patch just increased to 0.2 mg, will take a few days to take full effect; recommend to avoid amlodipine and nifedipine concurrently (can worsen edema in patient who already has severe nephrotic syndrome); can add cardizem for some added anti-proteinuric effect but for now will monitor; stopping IVF will help; will need to restart diuretics soon; Status: Chronic (4) Anemia in CKD (chronic kidney disease) Assessment & Plan: Hgb below goal, will give dose of EPO once BP better controlled; Status: Chronic (5) Nephrotic syndrome Status: Chronic (6) Diabetes Status: Acute
[2017-12-29] MEDS ORDERED: EPOETIN ALFA 10,000 UNIT/ML ML SC ONE (08:56)
[2017-12-29] MEDS: Insulin Lispro (humaLOG) 100 Units/ml Inj SC SCH ×7 (10:26→21:36)
[2017-12-29] MEDS: Pantoprazole 40 mg EC Tab PO SCH (10:27)
--- NOTE | 2017-12-29 12:39 | PN ---
DATE: 12/29/2017 ENDO FOLLOWUP NOTE LOCATION: Room 416. SUBJECTIVE: This is a 27-year-old female with recent uncontrolled type 1 insulin-dependent diabetes, now with extremes of glycemic fluctuations overnight with very evident dietary indiscretion with increased intake of all kinds of juices from our refrigerator and is now being followed closely for metabolic management. Her glucose values have ranged from 326 to 426 mg/dL. LABORATORY DATA: Her latest chemistry showed a BUN of 46, sodium 134, potassium 3.6, chloride 108, CO2 19, glucose 179, and creatinine 4.6. ASSESSMENT AND PLAN: So, at this time, we will once again modify her basal and bolus insulin regimen and increase the Humalog to 8 units t.i.d. before meals to start today as ordered. We will continue the low-dose correction scale using Humalog insulin as given to obviate hypoglycemia. We will also modify her basal insulin and increase the Levemir to 18 units subcutaneous at bedtime daily to start tonight. We will obtain serial chemistries and supplement accordingly as needed. She will also be cleared for eventual discharge today as discussed with the nurse practitioner. She has been advised to resume her [employer] insulin pump at home for optimal metabolic control of her diabetic condition. We will follow. Yamileth Charles MD
--- NOTE | 2017-12-29 14:05 | PN ---
DATE: 12/29/2017 SUBJECTIVE: The patient is seen and examined. Interim events noted. Consults noted and appreciated. The patient remains in the Progressive Care Unit, on telemetry monitoring. Feels much better. No chest pain, shortness of breath, nausea, vomiting or abdominal pain. PHYSICAL EXAMINATION GENERAL: The patient is in no acute distress. VITAL SIGNS: Stable. HEART: S1 and S2, normal and regular. LUNGS: Good bilateral air exchange. ABDOMEN: Soft, nontender. No sign of acute abdomen. No guarding, no rigidity, no rebound. Bowel sounds are present and normal. EXTREMITIES: No edema. No calf swelling. No tenderness. No acute ischemia. APPLICATIONS PROCESSOR: Essentially unchanged. DIAGNOSTIC DATA: Available diagnostic data reviewed. Upper extremity venous system for vein mapping noted. ASSESSMENT AND PLAN: Overall, telemetry monitoring does not show significant arrhythmias. Overall, the patient is medically stable. Plan as ordered. Garret Rg MD
[2017-12-29] MEDS: Dextrose 50% SYRINGE Inj (50 ml) IV PRN (16:35)
--- NOTE | 2017-12-29 19:32 | PN ---
DATE: 12/29/2017 SUBJECTIVE: The patient denies any chest pain or shortness of breath. No nausea or vomiting. The patient ambulated with her mother yesterday evening. PHYSICAL EXAMINATION VITAL SIGNS: Blood pressure 116/82, heart rate 89, temperature 97.9, and respirations 20. HEENT: Mild facial edema. NECK: No JVD. CHEST: Clear. HEART: S1 and S2 regular. EXTREMITIES: Trace leg edema. LABORATORY DATA: Today's blood sugar 366 and 85 respectively. Ventilation/perfusion scan showed trace low probability of pulmonary embolus. Yesterday's chest x-ray showed no active disease, no significant recurrent interval change. ASSESSMENT: 1. Advanced renal insufficiency. 2. Borderline troponin elevation, unlikely due to underlying coronary artery disease to the presence of renal insufficiency. 3. Gastroparesis. 4. Uncontrolled diabetes mellitus. 5. Hypertension. RECOMMENDATION: Continue clonidine patch 0.2 mg weekly. Continue amlodipine 10 mg once a day and Procardia XL 30 mg once a day. The case was discussed with , the airborne weapons technical manager. The patient can undergo AV fistula from the cardiac point of view with postoperative telemetry monitoring. Darryl Tinajero MD
[2017-12-29] MEDS ORDERED: Insulin Detemir 100 Units/ml Inj SC SCH (22:00)
[2017-12-30] MEDS: Insulin Lispro (humaLOG) 100 Units/ml Inj SC SCH ×5 (08:51→21:58)
[2017-12-30] MEDS: Pantoprazole 40 mg EC Tab PO SCH (08:58)
--- NOTE | 2017-12-30 10:00 | PN ---
DATE: 12/30/2017 SUBJECTIVE: The patient is seen and examined. Interim events noted. Consults noted and appreciated. Nephrology followup and interventions noted and appreciated. The patient remains in regular progressive care unit with telemetry monitoring, sleeping, arousable, feels okay. Denies any abdominal pain, nausea, vomiting, or diarrhea. No chest pain or shortness of breath either. PHYSICAL EXAMINATION: GENERAL: The patient is in no acute distress. VITAL SIGNS: Stable. HEART: S1, S2, normal and regular. LUNGS: Good bilateral air exchange. ABDOMEN: Soft, nontender. No sign of acute abdomen. No guarding, no rigidity, no rebound. Bowel sounds are plus and normal. EXTREMITIES: No edema, no calf swelling, no tenderness, no acute ischemia. CENTRAL NERVOUS SYSTEM: Exam is essentially unchanged. DIAGNOSTIC DATA: Available diagnostic data reviewed. Telemetry monitoring does not show significant arrhythmias. ASSESSMENT AND PLAN: The patient is for arteriovenous fistula. Plan as ordered. Garret Rg MD
--- NOTE | 2017-12-30 12:12 | CP.PCM.PN ---
Subjective - Date & Time of Evaluation Date of Evaluation: 12/28/17 Time of Evaluation: 08:15 - Subjective Subjective: no overnight events Objective - Vital Signs/Intake and Output Vital Signs (last 24 hours): Temp Pulse Resp BP Pulse Ox 97.7 F 69 20 129/77 95 12/30/17 08:19 12/30/17 08:19 12/30/17 08:19 12/30/17 08:19 12/30/17 08:19 - Medications Medications: Current Medications Acetaminophen (Tylenol 325mg Tab) 650 mg PO Q4 PRN PRN Reason: Pain, moderate (4-7) Amlodipine Besylate (Norvasc) 10 mg PO DAILY [facility] Last Admin: 12/30/17 08:58 Dose: 10 mg Clonidine HCl (Catapres-Tts2 0.2 Mg/24 Hr) 1 patch TD Q7D [facility] Last Admin: 12/26/17 09:17 Dose: 1 patch Dextrose (Dextrose 50% Inj) 0 ml IV STAT PRN; Protocol PRN Reason: Hypoglycemia Protocol Last Admin: 12/29/17 16:35 Dose: 50 ml Dextrose (Glutose 15) 0 gm PO ONCE PRN; Protocol PRN Reason: Hypoglycemia Protocol Diphenhydramine HCl (Benadryl) 50 mg PO Q6 PRN PRN Reason: Itching / Pruritus Last Admin: 12/26/17 18:52 Dose: 50 mg Ergocalciferol (Drisdol 50,000 Intl Units Cap) 1 cap PO Q7D [facility] Last Admin: 12/24/17 13:49 Dose: 1 cap Famotidine (Pepcid) 20 mg PO DAILY [facility] Last Admin: 12/30/17 08:58 Dose: 20 mg Glucagon (Glucagen Diagnostic Kit) 0 mg IM STAT PRN; Protocol PRN Reason: Hypoglycemia Protocol Hydroxyzine HCl (Atarax) 25 mg PO HS PRN PRN Reason: Anxiety Last Admin: 12/26/17 22:00 Dose: 25 mg Insulin Detemir (Levemir) 12 units SC HS [facility] Insulin Human Lispro (Humalog) 0 units SC ACHS [facility] Last Admin: 12/30/17 08:51 Dose: Not Given Insulin Human Lispro (Humalog) 8 units SC AC [facility] Last Admin: 12/30/17 08:56 Dose: Not Given Lorazepam (Ativan) 0.5 mg IVP BID PRN PRN Reason: Anxiety Last Admin: 12/30/17 11:20 Dose: 0.5 mg Ondansetron HCl (Zofran Inj) 6 mg IVP ACHS [facility] Last Admin: 12/30/17 11:19 Dose: 6 mg Pantoprazole Sodium (Protonix Ec Tab) 40 mg PO DAILY [facility] Last Admin: 12/30/17 08:58 Dose: 40 mg Tramadol HCl (Ultram) 50 mg PO Q6 PRN PRN Reason: Pain, moderate (4-7) Last Admin: 12/30/17 05:01 Dose: 50 mg - Labs Labs: 12/28/17 11:51 12/28/17 11:51 PT 10.9 Seconds (9.8-13.1) 12/22/17 10:20 INR 1.0 12/22/17 10:20 APTT 27.2 Seconds (25.6-37.1) 12/22/17 10:20 - Head Exam Head Exam: NORMOCEPHALIC - Neck Exam Neck Exam: Normal Inspection - Respiratory Exam Respiratory Exam: Clear to Ausculation Bilateral, NORMAL BREATHING PATTERN - Cardiovascular Exam Cardiovascular Exam: REGULAR RHYTHM - GI/Abdominal Exam GI & Abdominal Exam: Soft, Tenderness, Normal Bowel Sounds Assessment and Plan - Assessment and Plan (Free Text) Assessment: 27 yo female with gastroparesis renal input cont meds
--- NOTE | 2017-12-30 14:00 | CP.PCM.CON ---
History of Present Illness - History of Present Illness History of Present Illness: Vascular COnsult note for Dr. Crow 27 F w PMH of CKD came with abd pain and vomiting. Vascular surgery consulted to evaluate for AVF creation. Per note, pt is making urine and non-emergent. Review of Systems - Review of Systems Review of Systems: See HPI Past Patient History - Infectious Disease Hx of Infectious Diseases: None - Past Medical History & Family History Past Medical History?: Yes - Past Social History Smoking Status: vape pen - CARDIAC Hx Hypertension: Yes - PULMONARY Hx Bronchitis: Yes - NEUROLOGICAL Hx Neurological Disorder: No - HEENT Hx HEENT Problems: No - RENAL Hx Chronic Kidney Disease: Yes - ENDOCRINE/METABOLIC Hx Endocrine Disorders: Yes - HEMATOLOGICAL/ONCOLOGICAL Hx Anemia: Yes Hx Human Immunodeficiency Virus (HIV): No - INTEGUMENTARY Hx Dermatological Problems: No - MUSCULOSKELETAL/RHEUMATOLOGICAL Hx Musculoskeletal Disorders: No Hx Falls: No - GASTROINTESTINAL Hx Gastrointestinal Disorders: Yes Other/Comment: Gastroparesis - GENITOURINARY/GYNECOLOGICAL Hx Genitourinary Disorders: No - PSYCHIATRIC Hx Psychophysiologic Disorder: No Hx Substance Use: No - SURGICAL HISTORY Hx Surgeries: No - ANESTHESIA Hx Anesthesia: No Hx Anesthesia Reactions: No Meds Allergies/Adverse Reactions: Allergies Allergy/AdvReac Type Severity Reaction Status Date / Time No Known Allergies Allergy Verified 12/22/17 09:52 - Medications Medications: Current Medications Acetaminophen (Tylenol 325mg Tab) 650 mg PO Q4 PRN PRN Reason: Pain, moderate (4-7) Amlodipine Besylate (Norvasc) 10 mg PO DAILY [facility] Last Admin: 12/30/17 08:58 Dose: 10 mg Calcitriol (Rocaltrol) 0.25 mcg PO MWF [facility] Clonidine HCl (Catapres-Tts2 0.2 Mg/24 Hr) 1 patch TD Q7D [facility] Last Admin: 12/26/17 09:17 Dose: 1 patch Dextrose (Dextrose 50% Inj) 0 ml IV STAT PRN; Protocol PRN Reason: Hypoglycemia Protocol Last Admin: 12/29/17 16:35 Dose: 50 ml Dextrose (Glutose 15) 0 gm PO ONCE PRN; Protocol PRN Reason: Hypoglycemia Protocol Diphenhydramine HCl (Benadryl) 50 mg PO Q6 PRN PRN Reason: Itching / Pruritus Last Admin: 12/26/17 18:52 Dose: 50 mg Ergocalciferol (Drisdol 50,000 Intl Units Cap) 1 cap PO Q7D [facility] Last Admin: 12/24/17 13:49 Dose: 1 cap Famotidine (Pepcid) 20 mg PO DAILY [facility] Last Admin: 12/30/17 08:58 Dose: 20 mg Glucagon (Glucagen Diagnostic Kit) 0 mg IM STAT PRN; Protocol PRN Reason: Hypoglycemia Protocol Hydroxyzine HCl (Atarax) 25 mg PO HS PRN PRN Reason: Anxiety Last Admin: 12/26/17 22:00 Dose: 25 mg Dextrose (Dextrose 5% In Water 1000 Ml) 1,000 mls @ 50 mls/hr IV .Q20H [facility] Stop: 12/31/17 12:13 Insulin Detemir (Levemir) 12 units SC [facility] Insulin Human Lispro (Humalog) 0 units SC ACHS [facility] Last Admin: 12/30/17 08:51 Dose: Not Given Insulin Human Lispro (Humalog) 8 units SC AC [facility] Last Admin: 12/30/17 08:56 Dose: Not Given Lorazepam (Ativan) 0.5 mg IVP BID PRN PRN Reason: Anxiety Last Admin: 12/30/17 11:20 Dose: 0.5 mg Ondansetron HCl (Zofran Inj) 6 mg IVP ACHS [facility] Last Admin: 12/30/17 11:19 Dose: 6 mg Pantoprazole Sodium (Protonix Ec Tab) 40 mg PO DAILY [facility] Last Admin: 12/30/17 08:58 Dose: 40 mg Tramadol HCl (Ultram) 50 mg PO Q6 PRN PRN Reason: Pain, moderate (4-7) Last Admin: 12/30/17 05:01 Dose: 50 mg Physical Exam - Cardiovascular Exam Cardiovascular Exam: REGULAR RHYTHM Results - Vital Signs Recent Vital Signs: Last Vital Signs Temp 98.2 F 12/30/17 12:00 Pulse 90 12/30/17 12:00 Resp 20 12/30/17 12:00 BP 147/96 H 12/30/17 12:00 Pulse Ox 98 12/30/17 12:00 - Labs Result Diagrams: 12/28/17 11:51 12/28/17 11:51 Labs: Laboratory Results - last 24 hr 12/29/17 12/29/17 12/29/17 16:19 16:21 16:36 POC Glucose (mg/dL) < 20 L* < 20 L* 216 H 12/29/17 12/30/17 21:23 05:34 POC Glucose (mg/dL) 145 H 87 Assessment & Plan - Assessment and Plan (Free Text) Assessment: CKD Cr 5.4-> 4.6 slowly improving -REcommend IR Permacath if pt needs HD emergently -Call to follow up at Dr. Crow or Dr. Sapp's office to schedule for creation of AV fistula outpatient basis
--- NOTE | 2017-12-30 16:38 | PN ---
DATE: 12/30/2017 SUBJECTIVE: The patient is experiencing nausea and vomiting. She denies any chest pain. PHYSICAL EXAMINATION: VITAL SIGNS: Blood pressure 147/96, heart rate 90, temperature 98.2, respirations 20. HEENT: Pale conjunctivae. CHEST: Clear. HEART: S1 and S2 regular. EXTREMITIES: Trace leg edema. ASSESSMENT AND PLAN: 1. Advanced renal insufficiency. 2. Gastroparesis. 3. Hypertension. 4. Diabetes mellitus. RECOMMENDATIONS: Continue Norvasc 10 mg once a day, clonidine patch 0.2 mg weekly. The patient can undergo AV fistula tomorrow at [facility] from the cardiac point of view, close perioperative blood pressure rate monitoring with postoperative telemetry monitoring. Darryl Tinajero MD
--- NOTE | 2017-12-30 19:58 | PN ---
DATE: 12/30/2017 LOCATION: In room 407. SUBJECTIVE: This is a 27-year-old female with recent uncontrolled type 1 insulin-dependent diabetes with extremes of glycemic fluctuations related to the variability of her oral intake as noted thereof. Her glucose levels overnight were extremely fluctuating as noted and the latest glucose values today have ranged from 153-236 mg/dL. It was 87 early this morning pre-breakfast as noted. ASSESSMENT AND PLAN: So at this time as she is scheduled for possible arteriovenous fistula placement, we will hold off the Humalog insulin as given t.i.d. before meals as she will be kept n.p.o. as noted thereof. We will continue and lower the basal insulin to Levemir given as 6 units subcu at bedtime daily as given. We will titrate incremental as indicated to optimize metabolic control. We will follow and advise accordingly. Yamileth Charles MD
[2017-12-30] MEDS ORDERED: Insulin Detemir 100 Units/ml Inj SC SCH ×2 (22:00)
[2017-12-31] MEDS: Insulin Lispro (humaLOG) 100 Units/ml Inj SC SCH ×5 (06:52→21:20)
--- NOTE | 2017-12-31 08:06 | CP.PCM.PN ---
<Andrew Kramer - Last Filed: 12/31/17 08:03> Subjective - Date & Time of Evaluation Date of Evaluation: 12/31/17 Time of Evaluation: 07:00 - Subjective Subjective: 27 y/o F was seens and examined by bedside with Dr Rg. Pt reports feeling good, is eating. Pt had a episode of clear liquid vomiting last night but reports it was not as severe as before. At this moment, pt report no nausea. Pt afebrile overnight. Objective - Vital Signs/Intake and Output Vital Signs (last 24 hours): Temp Pulse Resp BP Pulse Ox 98.5 F 90 18 131/85 99 12/31/17 07:57 12/31/17 07:57 12/31/17 07:57 12/31/17 07:57 12/31/17 07:57 - Medications Medications: Current Medications Acetaminophen (Tylenol 325mg Tab) 650 mg PO Q4 PRN PRN Reason: Pain, moderate (4-7) Amlodipine Besylate (Norvasc) 10 mg PO DAILY [facility] Last Admin: 12/30/17 08:58 Dose: 10 mg Calcitriol (Rocaltrol) 0.25 mcg PO MWF [facility] Last Admin: 12/30/17 16:08 Dose: Not Given Clonidine HCl (Catapres-Tts2 0.2 Mg/24 Hr) 1 patch TD Q7D [facility] Last Admin: 12/26/17 09:17 Dose: 1 patch Dextrose (Dextrose 50% Inj) 0 ml IV STAT PRN; Protocol PRN Reason: Hypoglycemia Protocol Last Admin: 12/29/17 16:35 Dose: 50 ml Dextrose (Glutose 15) 0 gm PO ONCE PRN; Protocol PRN Reason: Hypoglycemia Protocol Diphenhydramine HCl (Benadryl) 50 mg PO Q6 PRN PRN Reason: Itching / Pruritus Last Admin: 12/26/17 18:52 Dose: 50 mg Ergocalciferol (Drisdol 50,000 Intl Units Cap) 1 cap PO Q7D [facility] Last Admin: 12/24/17 13:49 Dose: 1 cap Famotidine (Pepcid) 20 mg PO DAILY [facility] Last Admin: 12/30/17 08:58 Dose: 20 mg Glucagon (Glucagen Diagnostic Kit) 0 mg IM STAT PRN; Protocol PRN Reason: Hypoglycemia Protocol Hydroxyzine HCl (Atarax) 25 mg PO HS PRN PRN Reason: Anxiety Last Admin: 12/26/17 22:00 Dose: 25 mg Dextrose (Dextrose 5% In Water 1000 Ml) 1,000 mls @ 50 mls/hr IV .Q20H [facility] Stop: 12/31/17 12:13 Last Admin: 12/30/17 16:37 Dose: 50 mls/hr Insulin Detemir (Levemir) 6 units SC HS [facility] Last Admin: 12/30/17 21:59 Dose: 6 u Insulin Human Lispro (Humalog) 0 units SC ACHS [facility] Last Admin: 12/31/17 06:52 Dose: 2 units Insulin Human Lispro (Humalog) 8 units SC AC [facility] Last Admin: 12/30/17 08:56 Dose: Not Given Lorazepam (Ativan) 0.5 mg IVP BID PRN PRN Reason: Anxiety Last Admin: 12/31/17 06:37 Dose: 0.5 mg Ondansetron HCl (Zofran Inj) 6 mg IVP [facility] Last Admin: 12/31/17 06:39 Dose: 6 mg Pantoprazole Sodium (Protonix Ec Tab) 40 mg PO DAILY [facility] Last Admin: 12/30/17 08:58 Dose: 40 mg Tramadol HCl (Ultram) 50 mg PO Q6 PRN PRN Reason: Pain, moderate (4-7) Last Admin: 12/30/17 21:28 Dose: 50 mg - Labs Labs: 12/28/17 11:51 12/28/17 11:51 PT 10.9 Seconds (9.8-13.1) 12/22/17 10:20 INR 1.0 12/22/17 10:20 APTT 27.2 Seconds (25.6-37.1) 12/22/17 10:20 - Additional Findings Additional findings: - Constitutional Appears: No Acute Distress - Head Exam Head Exam: ATRAUMATIC, NORMAL INSPECTION - Eye Exam Eye Exam: EOMI - ENT Exam ENT Exam: Mucous Membranes Dry - Neck Exam Neck exam: Positive for: Full Rom, Normal Inspection - Respiratory Exam Respiratory Exam: NORMAL BREATHING PATTERN. absent: Rales, Rhonchi, Wheezes - Cardiovascular Exam Cardiovascular Exam: REGULAR RHYTHM, +S1, +S2 - GI/Abdominal Exam GI & Abdominal Exam: Normal Bowel Sounds, Soft. absent: Tenderness - Extremities Exam Extremities exam: Positive for: normal inspection. Negative for: calf tendernes s, pedal edema - Back Exam Back exam: absent: CVA tenderness (L), CVA tenderness (R) - Neurological Exam Neurological exam: Alert, Oriented x3 Assessment and Plan - Assessment and Plan (Free Text) Assessment: 27 y/o F with a PMHx of DM1, CKD and gastroparesis admitted for evaluation and management of severe hypoglycemic episodes. PLAN: --Afebrile, --NPO, --Will be transferred to [facility] today for IV fistula placement. --Insulin therapy as per python django developer --Gastroenterology on board, Dr Rodriguez --Nephrology consult on board, Dr Martines --Endocrinology consult on board, Dr Charles --Cardiology consult, Dr Tinajero. --Continue management as ordered. Case discussed with Dr Rg who agrees with the above. ZORAN Williamson PGY-2. <Garret Rg - Last Filed: 12/31/17 19:55> Objective - Vital Signs/Intake and Output Vital Signs (last 24 hours): Temp Pulse Resp BP Pulse Ox 99.1 F 101 H 22 143/95 H 100 12/31/17 19:50 12/31/17 19:50 12/31/17 19:50 12/31/17 19:50 12/31/17 19:50 - Medications Medications: Current Medications Acetaminophen (Tylenol 325mg Tab) 650 mg PO Q4 PRN PRN Reason: Pain, moderate (4-7) Amlodipine Besylate (Norvasc) 10 mg PO DAILY [facility] Last Admin: 12/31/17 09:15 Dose: Not Given Calcitriol (Rocaltrol) 0.25 mcg PO MWF [facility] Last Admin: 12/30/17 16:08 Dose: Not Given Clonidine HCl (Catapres-Tts2 0.2 Mg/24 Hr) 1 patch TD Q7D [facility] Last Admin: 12/26/17 09:17 Dose: 1 patch Dextrose (Dextrose 50% Inj) 0 ml IV STAT PRN; Protocol PRN Reason: Hypoglycemia Protocol Last Admin: 12/29/17 16:35 Dose: 50 ml Dextrose (Glutose 15) 0 gm PO ONCE PRN; Protocol PRN Reason: Hypoglycemia Protocol Diphenhydramine HCl (Benadryl) 50 mg PO Q6 PRN PRN Reason: Itching / Pruritus Last Admin: 12/26/17 18:52 Dose: 50 mg Ergocalciferol (Drisdol 50,000 Intl Units Cap) 1 cap PO Q7D [facility] Last Admin: 12/31/17 17:08 Dose: Not Given Famotidine (Pepcid) 20 mg PO DAILY [facility] Last Admin: 12/31/17 09:15 Dose: Not Given Glucagon (Glucagen Diagnostic Kit) 0 mg IM STAT PRN; Protocol PRN Reason: Hypoglycemia Protocol Hydroxyzine HCl (Atarax) 25 mg PO HS PRN PRN Reason: Anxiety Last Admin: 12/26/17 22:00 Dose: 25 mg Insulin Detemir (Levemir) 12 units SC HS [facility] Insulin Human Lispro (Humalog) 0 units SC ACHS [facility] Last Admin: 12/31/17 17:06 Dose: 4 units Insulin Human Lispro (Humalog) 8 units SC AC [facility] Last Admin: 12/31/17 17:06 Dose: 8 units Lorazepam (Ativan) 0.5 mg IVP BID PRN PRN Reason: Anxiety Last Admin: 12/31/17 06:37 Dose: 0.5 mg Morphine Sulfate (Morphine) 2 mg IVP Q8 [facility] Last Admin: 12/31/17 16:46 Dose: 2 mg Ondansetron HCl (Zofran Inj) 6 mg IVP ACHS [facility] Last Admin: 12/31/17 17:05 Dose: 6 mg Pantoprazole Sodium (Protonix Ec Tab) 40 mg PO DAILY [facility] Last Admin: 12/31/17 09:15 Dose: Not Given Tramadol HCl (Ultram) 50 mg PO Q6 PRN PRN Reason: Pain, moderate (4-7) Last Admin: 12/31/17 15:29 Dose: 50 mg - Labs Labs: 12/28/17 11:51 12/31/17 18:45 PT 10.9 Seconds (9.8-13.1) 12/22/17 10:20 INR 1.0 12/22/17 10:20 APTT 27.2 Seconds (25.6-37.1) 12/22/17 10:20 Assessment and Plan - Assessment and Plan (Free Text) Assessment: Patient was personally seen and examined by me in rounds with residents. Available labs and diagnostic data reviewed. Case, Patient's condition and management plan discussed with residents in rounds. Agree with resident's progress note. Plan: As ordered.
--- NOTE | 2017-12-31 08:12 | CP.PCM.PN ---
Subjective - Date & Time of Evaluation Date of Evaluation: 12/30/17 Time of Evaluation: 13:00 - Subjective Subjective: Patient vomiting earlier today; urinating well; Objective - Vital Signs/Intake and Output Vital Signs (last 24 hours): Temp Pulse Resp BP Pulse Ox 98.5 F 90 18 131/85 99 12/31/17 07:57 12/31/17 07:57 12/31/17 07:57 12/31/17 07:57 12/31/17 07:57 - Medications Medications: Current Medications Acetaminophen (Tylenol 325mg Tab) 650 mg PO Q4 PRN PRN Reason: Pain, moderate (4-7) Amlodipine Besylate (Norvasc) 10 mg PO DAILY [facility] Last Admin: 12/30/17 08:58 Dose: 10 mg Calcitriol (Rocaltrol) 0.25 mcg PO MWF [facility] Last Admin: 12/30/17 16:08 Dose: Not Given Clonidine HCl (Catapres-Tts2 0.2 Mg/24 Hr) 1 patch TD Q7D [facility] Last Admin: 12/26/17 09:17 Dose: 1 patch Dextrose (Dextrose 50% Inj) 0 ml IV STAT PRN; Protocol PRN Reason: Hypoglycemia Protocol Last Admin: 12/29/17 16:35 Dose: 50 ml Dextrose (Glutose 15) 0 gm PO ONCE PRN; Protocol PRN Reason: Hypoglycemia Protocol Diphenhydramine HCl (Benadryl) 50 mg PO Q6 PRN PRN Reason: Itching / Pruritus Last Admin: 12/26/17 18:52 Dose: 50 mg Ergocalciferol (Drisdol 50,000 Intl Units Cap) 1 cap PO Q7D [facility] Last Admin: 12/24/17 13:49 Dose: 1 cap Famotidine (Pepcid) 20 mg PO DAILY [facility] Last Admin: 12/30/17 08:58 Dose: 20 mg Glucagon (Glucagen Diagnostic Kit) 0 mg IM STAT PRN; Protocol PRN Reason: Hypoglycemia Protocol Hydroxyzine HCl (Atarax) 25 mg PO HS PRN PRN Reason: Anxiety Last Admin: 12/26/17 22:00 Dose: 25 mg Dextrose (Dextrose 5% In Water 1000 Ml) 1,000 mls @ 50 mls/hr IV .Q20H [facility] Stop: 12/31/17 12:13 Last Admin: 12/30/17 16:37 Dose: 50 mls/hr Insulin Detemir (Levemir) 6 units SC HS [facility] Last Admin: 12/30/17 21:59 Dose: 6 u Insulin Human Lispro (Humalog) 0 units SC ACHS [facility] Last Admin: 12/31/17 06:52 Dose: 2 units Insulin Human Lispro (Humalog) 8 units SC AC [facility] Last Admin: 12/30/17 08:56 Dose: Not Given Lorazepam (Ativan) 0.5 mg IVP BID PRN PRN Reason: Anxiety Last Admin: 12/31/17 06:37 Dose: 0.5 mg Ondansetron HCl (Zofran Inj) 6 mg IVP ACHS [facility] Last Admin: 12/31/17 06:39 Dose: 6 mg Pantoprazole Sodium (Protonix Ec Tab) 40 mg PO DAILY [facility] Last Admin: 12/30/17 08:58 Dose: 40 mg Tramadol HCl (Ultram) 50 mg PO Q6 PRN PRN Reason: Pain, moderate (4-7) Last Admin: 12/30/17 21:28 Dose: 50 mg - Labs Labs: 12/28/17 11:51 12/28/17 11:51 PT 10.9 Seconds (9.8-13.1) 12/22/17 10:20 INR 1.0 12/22/17 10:20 APTT 27.2 Seconds (25.6-37.1) 12/22/17 10:20 - Constitutional Appears: Non-toxic, No Acute Distress - Eye Exam Eye Exam: Normal appearance - Respiratory Exam Respiratory Exam: Clear to Ausculation Bilateral. absent: Respiratory Distress - Cardiovascular Exam Cardiovascular Exam: RRR, +S1, +S2 - GI/Abdominal Exam GI & Abdominal Exam: Soft. absent: Distended - Extremities Exam Additional comments: trace lower leg edema b/l; - Neurological Exam Neurological Exam: Alert, Awake - Psychiatric Exam Psychiatric exam: Normal Mood. absent: Agitated - Skin Skin Exam: Warm. absent: Cyanosis Assessment and Plan (1) Acute on chronic renal insufficiency Assessment & Plan: NICKI on late CKD IV; pre-renal etiology, showing some improvement; nevertheless, need to prepare for HD in the coming months; set for AVF creation procedure tomorrow at [facility]; -repeat labs ordered; -NPO past MN, keeping on D5W to avoid hypoglycemia; Status: Acute (2) CKD (chronic kidney disease), stage IV Status: Chronic (3) Hypertensive CKD (chronic kidney disease) Assessment & Plan: BP controlled, continue current meds; Status: Chronic (4) Anemia in CKD (chronic kidney disease) Assessment & Plan: s/p 1 dose of EPO this week; will plan to re-dose before d/c; Status: Chronic (5) Nephrotic syndrome Status: Chronic (6) Diabetes Status: Acute
[2017-12-31] MEDS: Pantoprazole 40 mg EC Tab PO SCH (09:15)
--- NOTE | 2017-12-31 13:50 | CP.PCM.PCO ---
Assessment & Plan - Assessment and Plan (Free Text) Assessment: pt. was scheduled for AV fistula placement with at but patient refused procedure and case was cancelled
[2017-12-31] MEDS: Ergocalciferol 50,000 Intl Units Cap PO SCH (17:08)
--- NOTE | 2017-12-31 18:35 | PCM.RRT ---
I.Reason for SIGNALS COLLECTOR/ANALYST - A) Acute Change in Patient: Subjective: SIGNALS COLLECTOR/ANALYST SIGNALS COLLECTOR/ANALYST Time: 6:18pm SIGNALS COLLECTOR/ANALYST Location: [address] [place] [address] SIGNALS COLLECTOR/ANALYST Arrival: 6:19pm SIGNALS COLLECTOR/ANALYST Reason: Pt was reported to have seizure like activity that lasted 30 seconds and Nausea, vomiting, abdominal pain S: Pt is a 27 yo F with hx of DM1, CKD, admitted for gastroparesis, hyp oglycemia, elevated troponin, seizures. Pt was scheduled for a fistula today at [facility] but refused the procedure. O: SIGNALS COLLECTOR/ANALYST Vitals: BP: 123/70 HR:103 RR:16 O2 sat: 100% on 2.5 L NC General: Lying in bed, AMS, Vomiting acutely HEENT: NCAT, wearing NC Cardiac: RRR, + S1 S2, No m/r/g Resp: CTA, No wheezes, rales or rhonchi Abdo: + BS, mild diffuse tenderness to palpation Extremeties: no edema SIGNALS COLLECTOR/ANALYST intervention: -Ativan IVP 0.5 once -Increased IVF to 80cc/hour -Protonix 40mg IVP once -BMP -NPO A/P: Pt is a 27 yo F admitted for gastroparesis, hypoglycemia, elevated troponin, seizures SIGNALS COLLECTOR/ANALYST Outcome: Seizure like activity resolved, nausea and vomiting decreaed, stable SIGNALS COLLECTOR/ANALYST vitals: BP123/78, HR125, O2Sat 98% on 2.5 L NC SIGNALS COLLECTOR/ANALYST end: 6:40pm SIGNALS COLLECTOR/ANALYST Leader: Dr. Diallo SIGNALS COLLECTOR/ANALYST residents: Dr. Nita Quispe PGY2, Dr. Ivon Nichols PGY1
--- NOTE | 2017-12-31 19:35 | PN ---
DATE: 12/31/2017 SUBJECTIVE: The patient's scheduled AV fistula procedure was canceled today because the patient was vomiting. The patient at this moment is sleeping. The patient's mother is at the bedside. No reported chest pain. No reported hypotension or arrhythmia. PHYSICAL EXAMINATION VITAL SIGNS: Most recent blood pressure 159/102, heart rate 99, temperature 98.5, respirations 18. LABORATORY DATA: Today's blood sugar 342 and 309. ASSESSMENT: 1. Advanced renal insufficiency. 2. Borderline troponin elevation upon presentation. 3. Uncontrolled diabetes mellitus. 4. Anemia. 5. Hypertension. RECOMMENDATIONS: Continue clonidine patch at 0.2 mg weekly. Continue Zofran 6 mg intravenously twice a day. Oral medications including Protonix, Pepcid and Norvasc are on hold because the patient is vomiting. Darryl Tinajero MD
[2017-12-31 19:54] LABS: CALCIUM 8.9 mg/dL (8.4-10.2)
[2017-12-31] MEDS ORDERED: Insulin Detemir 100 Units/ml Inj SC SCH (22:00)
--- NOTE | 2018-01-01 00:28 | PN ---
DATE: 12/31/2017 ENDOCRINOLOGY FOLLOWUP NOTE LOCATION: Room 407. This is a 27-year-old female with recent uncontrolled type 1 insulin-dependent diabetes with recurrent diabetic gastroparesis and also progressive renal insufficiency and apparently was scheduled for a vein mapping and AV fistula placement at [facility] today for which the patient refused the procedure at the last minute just prior to transfer as noted. Her glycemic levels are also extremely fluctuating because of the insulin regimen was held today for the planned procedure as noted. Her glucose values have ranged from 309 to 342 mg/dL. Her latest chemistries showed a BUN of 48, sodium 132, potassium 4.1, chloride 106, CO2 of 21, glucose 335, and creatinine 5. So at this time, we will modify once again her basal and bolus insulin regimen and actually resume the aforementioned combination therapy with Humalog to be started at 8 units subcu t.i.d. before meals to start today as ordered. We will add Levemir given as 12 units subcu at bedtime daily to start tonight. We will titrate incrementally as indicated to optimize metabolic control. We will follow. Yamileth Charles MD
[2018-01-01] MEDS: Insulin Lispro (humaLOG) 100 Units/ml Inj SC SCH ×7 (06:37→21:41)
--- NOTE | 2018-01-01 07:42 | CP.PCM.PN ---
<Nicolasa Alexander - Last Filed: 01/01/18 11:25> Subjective - Date & Time of Evaluation Date of Evaluation: 01/01/18 Time of Evaluation: 07:42 - Subjective Subjective: Patient seen and examined at bedside with Dr Rg this morning.Yesterday APPOINTMENT COORDINATOR was called due to suspected seizure. patient much better this morning. Objective - Vital Signs/Intake and Output Vital Signs (last 24 hours): Temp Pulse Resp BP Pulse Ox 98.1 F 88 18 150/99 H 100 01/01/18 04:51 01/01/18 04:51 01/01/18 04:51 01/01/18 04:51 01/01/18 04:51 - Medications Medications: Current Medications Acetaminophen (Tylenol 325mg Tab) 650 mg PO Q4 PRN PRN Reason: Pain, moderate (4-7) Amlodipine Besylate (Norvasc) 10 mg PO DAILY [facility] Last Admin: 12/31/17 09:15 Dose: Not Given Calcitriol (Rocaltrol) 0.25 mcg PO MWF [facility] Last Admin: 12/30/17 16:08 Dose: Not Given Clonidine HCl (Catapres-Tts2 0.2 Mg/24 Hr) 1 patch TD Q7D [facility] Last Admin: 12/26/17 09:17 Dose: 1 patch Dextrose (Dextrose 50% Inj) 0 ml IV STAT PRN; Protocol PRN Reason: Hypoglycemia Protocol Last Admin: 12/29/17 16:35 Dose: 50 ml Dextrose (Glutose 15) 0 gm PO ONCE PRN; Protocol PRN Reason: Hypoglycemia Protocol Diphenhydramine HCl (Benadryl) 50 mg PO Q6 PRN PRN Reason: Itching / Pruritus Last Admin: 12/31/17 21:25 Dose: 50 mg Ergocalciferol (Drisdol 50,000 Intl Units Cap) 1 cap PO Q7D [facility] Last Admin: 12/31/17 17:08 Dose: Not Given Famotidine (Pepcid) 20 mg PO DAILY [facility] Last Admin: 12/31/17 09:15 Dose: Not Given Glucagon (Glucagen Diagnostic Kit) 0 mg IM STAT PRN; Protocol PRN Reason: Hypoglycemia Protocol Hydroxyzine HCl (Atarax) 25 mg PO HS PRN PRN Reason: Anxiety Last Admin: 12/31/17 21:24 Dose: 25 mg Insulin Detemir (Levemir) 12 units SC HS [facility] Last Admin: 12/31/17 21:18 Dose: 12 units Insulin Human Lispro (Humalog) 0 units SC ACHS [facility] Last Admin: 01/01/18 06:37 Dose: Not Given Insulin Human Lispro (Humalog) 8 units SC AC [facility] Last Admin: 12/31/17 17:06 Dose: 8 units Lorazepam (Ativan) 0.5 mg IVP BID PRN PRN Reason: Anxiety Last Admin: 01/01/18 01:50 Dose: 0.5 mg Morphine Sulfate (Morphine) 2 mg IVP Q8 [facility] Last Admin: 01/01/18 01:33 Dose: Not Given Ondansetron HCl (Zofran Inj) 6 mg IVP [facility] Last Admin: 01/01/18 07:33 Dose: 6 mg Pantoprazole Sodium (Protonix Ec Tab) 40 mg PO DAILY [facility] Last Admin: 12/31/17 09:15 Dose: Not Given Tramadol HCl (Ultram) 50 mg PO Q6 PRN PRN Reason: Pain, moderate (4-7) Last Admin: 12/31/17 15:29 Dose: 50 mg - Labs Labs: 12/28/17 11:51 12/31/17 18:45 PT 10.9 Seconds (9.8-13.1) 12/22/17 10:20 INR 1.0 12/22/17 10:20 APTT 27.2 Seconds (25.6-37.1) 12/22/17 10:20 - Constitutional Appears: No Acute Distress - Respiratory Exam Respiratory Exam: Clear to Ausculation Bilateral - Cardiovascular Exam Cardiovascular Exam: REGULAR RHYTHM - GI/Abdominal Exam GI & Abdominal Exam: Soft, Normal Bowel Sounds. absent: Distended, Tenderness - Extremities Exam Extremities Exam: absent: Calf Tenderness, Pedal Edema - Neurological Exam Neurological Exam: Alert, Awake, Oriented x3 - Psychiatric Exam Psychiatric exam: Depressed Assessment and Plan - Assessment and Plan (Free Text) Assessment: 27 y/o F with a PMHx of DM1, CKD and gastroparesis admitted for evaluation and management of severe hypoglycemic episodes. PLAN: - Afebrile, - refused IV fistula placement for HD - Insulin therapy as per hedis review nurse - Gastroenterology on board, Dr Rodriguez - Nephrology consult on board, Dr Martines - Endocrinology consult on board, Dr Charles - Cardiology consult, Dr Tinajero. - Psych consulted, recommendations appreciated - Continue management as ordered. <Garret Rg - Last Filed: 01/04/18 07:44> Objective - Vital Signs/Intake and Output Vital Signs (last 24 hours): Temp Pulse Resp BP Pulse Ox 98.6 F 77 17 138/87 99 01/04/18 04:48 01/04/18 04:48 01/04/18 04:48 01/04/18 04:48 01/04/18 04:48 Intake and Output: 01/03/18 01/04/18 23:59 11:59 Intake Total 950 Balance 950 - Medications Medications: Current Medications Acetaminophen (Tylenol 325mg Tab) 650 mg PO Q4 PRN PRN Reason: Pain, moderate (4-7) Amlodipine Besylate (Norvasc) 10 mg PO DAILY [facility] Last Admin: 01/03/18 09:21 Dose: 10 mg Calcitriol (Rocaltrol) 0.25 mcg PO MWF [facility] Last Admin: 01/01/18 08:37 Dose: 0.25 mcg Clonidine HCl (Catapres-Tts2 0.2 Mg/24 Hr) 1 patch TD Q7D [facility] Last Admin: 01/02/18 10:08 Dose: 1 patch Dextrose (Dextrose 50% Inj) 0 ml IV STAT PRN; Protocol PRN Reason: Hypoglycemia Protocol Last Admin: 12/29/17 16:35 Dose: 50 ml Dextrose (Glutose 15) 0 gm PO ONCE PRN; Protocol PRN Reason: Hypoglycemia Protocol Diphenhydramine HCl (Benadryl) 50 mg PO Q6 PRN PRN Reason: Itching / Pruritus Last Admin: 01/03/18 21:45 Dose: 50 mg Ergocalciferol (Drisdol 50,000 Intl Units Cap) 1 cap PO Q7D [facility] Last Admin: 12/31/17 17:08 Dose: Not Given Famotidine (Pepcid) 20 mg PO DAILY [facility] Last Admin: 01/03/18 09:22 Dose: 20 mg Glucagon (Glucagen Diagnostic Kit) 0 mg IM STAT PRN; Protocol PRN Reason: Hypoglycemia Protocol Hydroxyzine HCl (Atarax) 25 mg PO HS PRN PRN Reason: Anxiety Last Admin: 11/18/18 21:50 Dose: 25 mg Insulin Detemir (Levemir) 20 units SC [facility] Last Admin: 01/03/18 22:06 Dose: 20 u Insulin Human Lispro (Humalog) 0 units SC [facility] Last Admin: 01/04/18 06:47 Dose: Not Given Insulin Human Lispro (Humalog) 10 units SC [facility] Last Admin: 01/03/18 18:02 Dose: Not Given Labetalol HCl (Trandate) 20 mg IVP Q4H PRN PRN Reason: Systolic Blood Pressure Last Admin: 01/01/18 09:10 Dose: 20 mg Lorazepam (Ativan) 0.5 mg IVP Q8 PRN PRN Reason: Anxiety Last Admin: 01/03/18 21:51 Dose: 0.5 mg Mirtazapine (Remeron) 7.5 mg PO [facility] Last Admin: 01/03/18 21:45 Dose: 7.5 mg Morphine Sulfate (Morphine) 2 mg IVP Q8 PRN PRN Reason: Pain, severe (8-10) Ondansetron HCl (Zofran Inj) 6 mg IVP [facility] Last Admin: 01/03/18 21:51 Dose: 6 mg Pantoprazole Sodium (Protonix Ec Tab) 40 mg PO DAILY [facility] Last Admin: 01/03/18 09:22 Dose: 40 mg - Labs Labs: 01/02/18 18:06 01/02/18 18:06 PT 10.9 Seconds (9.8-13.1) 12/22/17 10:20 INR 1.0 12/22/17 10:20 APTT 27.2 Seconds (25.6-37.1) 12/22/17 10:20 Assessment and Plan - Assessment and Plan (Free Text) Assessment: Patient was personally seen and examined by me in rounds with residents. Available labs and diagnostic data reviewed. Case, Patient's condition and management plan discussed with residents in rounds. Agree with resident's progress note. Plan: As ordered.
[2018-01-01] MEDS ORDERED: Labetalol 5mg/ml (4ml) IVP PRN (07:52)
[2018-01-01] MEDS ORDERED: Sodium Chloride 0.9% 1,000 ML IV SCH (08:00)
[2018-01-01] MEDS: Pantoprazole 40 mg EC Tab PO SCH (08:37)
--- NOTE | 2018-01-01 09:55 | CP.PCM.CON ---
History of Present Illness - History of Present Illness History of Present Illness: Psychiatry consult note CC: "I'm depressed and anxious." HPI: 27 yo female w/ DM, CKD, pseudoseizures, admitted w/ worsening diabetes and gastroparesis, reports feeling depressed and anxious w/ poor sleep in the context of chronic medical issues. She states that she was not compliant with Zoloft which was recommended by the previous psychiatry consultation. She denies AH/VH/SI/HI. A + O x 3. PPHx: History of treatment w/ Zoloft, no current psychiatric treatment or medications. PMHx: DM, CKD, pseudoseizures, gastroparesis ALL: NKDA Impression: 27 yo female w/ adjustment disorder vs MDD and intermittent anxiety. -No acute psychiatric admission or 1:1 indicated -Recommend to start Remeron 7.5 mg PO HS and titrate to 15 mg PO HS -Ativan 0.5 mg PO TID or Q8Hr PRN anxiety Past Patient History - Infectious Disease Hx of Infectious Diseases: None - Past Medical History & Family History Past Medical History?: Yes - Past Social History Smoking Status: vape pen - CARDIAC Hx Hypertension: Yes - PULMONARY Hx Bronchitis: Yes - NEUROLOGICAL Hx Neurological Disorder: No - HEENT Hx HEENT Problems: No - RENAL Hx Chronic Kidney Disease: Yes - ENDOCRINE/METABOLIC Hx Endocrine Disorders: Yes - HEMATOLOGICAL/ONCOLOGICAL Hx Anemia: Yes Hx Human Immunodeficiency Virus (HIV): No - INTEGUMENTARY Hx Dermatological Problems: No - MUSCULOSKELETAL/RHEUMATOLOGICAL Hx Musculoskeletal Disorders: No Hx Falls: No - GASTROINTESTINAL Hx Gastrointestinal Disorders: Yes Other/Comment: Gastroparesis - GENITOURINARY/GYNECOLOGICAL Hx Genitourinary Disorders: No - PSYCHIATRIC Hx Psychophysiologic Disorder: No Hx Substance Use: No - SURGICAL HISTORY Hx Surgeries: No - ANESTHESIA Hx Anesthesia: No Hx Anesthesia Reactions: No Meds Allergies/Adverse Reactions: Allergies Allergy/AdvReac Type Severity Reaction Status Date / Time No Known Allergies Allergy Verified 12/22/17 09:52 - Medications Medications: Current Medications Acetaminophen (Tylenol 325mg Tab) 650 mg PO Q4 PRN PRN Reason: Pain, moderate (4-7) Amlodipine Besylate (Norvasc) 10 mg PO DAILY [facility] Last Admin: 01/01/18 08:36 Dose: 10 mg Calcitriol (Rocaltrol) 0.25 mcg PO MWF [facility] Last Admin: 01/01/18 08:37 Dose: 0.25 mcg Clonidine HCl (Catapres-Tts2 0.2 Mg/24 Hr) 1 patch TD Q7D [facility] Last Admin: 12/26/17 09:17 Dose: 1 patch Dextrose (Dextrose 50% Inj) 0 ml IV STAT PRN; Protocol PRN Reason: Hypoglycemia Protocol Last Admin: 12/29/17 16:35 Dose: 50 ml Dextrose (Glutose 15) 0 gm PO ONCE PRN; Protocol PRN Reason: Hypoglycemia Protocol Diphenhydramine HCl (Benadryl) 50 mg PO Q6 PRN PRN Reason: Itching / Pruritus Last Admin: 12/31/17 21:25 Dose: 50 mg Ergocalciferol (Drisdol 50,000 Intl Units Cap) 1 cap PO Q7D [facility] Last Admin: 12/31/17 17:08 Dose: Not Given Famotidine (Pepcid) 20 mg PO DAILY [facility] Last Admin: 01/01/18 08:36 Dose: 20 mg Glucagon (Glucagen Diagnostic Kit) 0 mg IM STAT PRN; Protocol PRN Reason: Hypoglycemia Protocol Hydroxyzine HCl (Atarax) 25 mg PO HS PRN PRN Reason: Anxiety Last Admin: 12/31/17 21:24 Dose: 25 mg Sodium Chloride (Sodium Chloride 0.9%) 1,000 mls @ 100 mls/hr IV .Q10H [facility] Stop: 01/02/18 07:51 Last Admin: 01/01/18 08:37 Dose: 100 mls/hr Insulin Detemir (Levemir) 12 units SC HS [facility] Last Admin: 12/31/17 21:18 Dose: 12 units Insulin Human Lispro (Humalog) 0 units SC ACHS [facility] Last Admin: 01/01/18 06:37 Dose: Not Given Insulin Human Lispro (Humalog) 8 units SC AC [facility] Last Admin: 01/01/18 09:09 Dose: 8 units Labetalol HCl (Trandate) 20 mg IVP Q4H PRN PRN Reason: Systolic Blood Pressure Last Admin: 01/01/18 09:10 Dose: 20 mg Lorazepam (Ativan) 0.5 mg IVP BID PRN PRN Reason: Anxiety Last Admin: 01/01/18 01:50 Dose: 0.5 mg Morphine Sulfate (Morphine) 2 mg IVP Q8 [facility] Last Admin: 01/01/18 01:33 Dose: Not Given Ondansetron HCl (Zofran Inj) 6 mg IVP ACHS [facility] Last Admin: 01/01/18 07:33 Dose: 6 mg Pantoprazole Sodium (Protonix Ec Tab) 40 mg PO DAILY [facility] Last Admin: 01/01/18 08:37 Dose: 40 mg Tramadol HCl (Ultram) 50 mg PO Q6 PRN PRN Reason: Pain, moderate (4-7) Last Admin: 12/31/17 15:29 Dose: 50 mg Results - Vital Signs Recent Vital Signs: Last Vital Signs Temp 98.7 F 01/01/18 08:00 Pulse 80 01/01/18 08:00 Resp 18 01/01/18 08:00 BP 178/127 H 01/01/18 08:36 Pulse Ox 100 01/01/18 08:00 - Labs Result Diagrams: 12/28/17 11:51 12/31/17 18:45 Labs: Laboratory Results - last 24 hr 12/31/17 12/31/17 12/31/17 05:49 10:49 16:20 Sodium Potassium Chloride Carbon Dioxide Anion Gap BUN Creatinine Est GFR ( Amer) Est GFR (Non-Af Amer) POC Glucose (mg/dL) 342 H 309 H 405 H* Random Glucose Calcium 12/31/17 12/31/17 18:45 21:16 Sodium 136 Potassium 3.9 Chloride 106 Carbon Dioxide 20 L Anion Gap 14 BUN 45 H Creatinine 6.6 H Est GFR ( Amer) 9 Est GFR (Non-Af Amer) 7 POC Glucose (mg/dL) 257 H Random Glucose 320 H Calcium 8.9
--- NOTE | 2018-01-01 11:47 | CP.PCM.PN ---
Subjective - Date & Time of Evaluation Date of Evaluation: 12/29/17 Time of Evaluation: 19:00 - Subjective Subjective: vomiting continues Objective - Vital Signs/Intake and Output Vital Signs (last 24 hours): Temp Pulse Resp BP Pulse Ox 98.7 F 80 18 138/90 100 01/01/18 08:00 01/01/18 08:00 01/01/18 08:00 01/01/18 10:02 01/01/18 08:00 - Medications Medications: Current Medications Acetaminophen (Tylenol 325mg Tab) 650 mg PO Q4 PRN PRN Reason: Pain, moderate (4-7) Amlodipine Besylate (Norvasc) 10 mg PO DAILY [facility] Last Admin: 01/01/18 08:36 Dose: 10 mg Calcitriol (Rocaltrol) 0.25 mcg PO MWF [facility] Last Admin: 01/01/18 08:37 Dose: 0.25 mcg Clonidine HCl (Catapres-Tts2 0.2 Mg/24 Hr) 1 patch TD Q7D [facility] Last Admin: 12/26/17 09:17 Dose: 1 patch Dextrose (Dextrose 50% Inj) 0 ml IV STAT PRN; Protocol PRN Reason: Hypoglycemia Protocol Last Admin: 12/29/17 16:35 Dose: 50 ml Dextrose (Glutose 15) 0 gm PO ONCE PRN; Protocol PRN Reason: Hypoglycemia Protocol Diphenhydramine HCl (Benadryl) 50 mg PO Q6 PRN PRN Reason: Itching / Pruritus Last Admin: 12/31/17 21:25 Dose: 50 mg Ergocalciferol (Drisdol 50,000 Intl Units Cap) 1 cap PO Q7D [facility] Last Admin: 12/31/17 17:08 Dose: Not Given Famotidine (Pepcid) 20 mg PO DAILY [facility] Last Admin: 01/01/18 08:36 Dose: 20 mg Glucagon (Glucagen Diagnostic Kit) 0 mg IM STAT PRN; Protocol PRN Reason: Hypoglycemia Protocol Hydroxyzine HCl (Atarax) 25 mg PO HS PRN PRN Reason: Anxiety Last Admin: 12/31/17 21:24 Dose: 25 mg Sodium Chloride (Sodium Chloride 0.9%) 1,000 mls @ 100 mls/hr IV .Q10H [facility] Stop: 01/02/18 07:51 Last Admin: 01/01/18 08:37 Dose: 100 mls/hr Insulin Detemir (Levemir) 12 units SC HS [facility] Last Admin: 12/31/17 21:18 Dose: 12 units Insulin Human Lispro (Humalog) 0 units SC ACHS [facility] Last Admin: 01/01/18 06:37 Dose: Not Given Insulin Human Lispro (Humalog) 8 units SC AC [facility] Last Admin: 01/01/18 09:09 Dose: 8 units Labetalol HCl (Trandate) 20 mg IVP Q4H PRN PRN Reason: Systolic Blood Pressure Last Admin: 01/01/18 09:10 Dose: 20 mg Lorazepam (Ativan) 0.5 mg IVP BID PRN PRN Reason: Anxiety Last Admin: 01/01/18 10:04 Dose: 0.5 mg Morphine Sulfate (Morphine) 2 mg IVP Q8 [facility] Last Admin: 01/01/18 10:05 Dose: Not Given Ondansetron HCl (Zofran Inj) 6 mg IVP [facility] Last Admin: 01/01/18 07:33 Dose: 6 mg Pantoprazole Sodium (Protonix Ec Tab) 40 mg PO DAILY [facility] Last Admin: 01/01/18 08:37 Dose: 40 mg Tramadol HCl (Ultram) 50 mg PO Q6 PRN PRN Reason: Pain, moderate (4-7) Last Admin: 12/31/17 15:29 Dose: 50 mg - Labs Labs: 12/28/17 11:51 12/31/17 18:45 PT 10.9 Seconds (9.8-13.1) 12/22/17 10:20 INR 1.0 12/22/17 10:20 APTT 27.2 Seconds (25.6-37.1) 12/22/17 10:20 - Head Exam Head Exam: NORMOCEPHALIC - Neck Exam Neck Exam: Normal Inspection - Respiratory Exam Respiratory Exam: Clear to Ausculation Bilateral, NORMAL BREATHING PATTERN - Cardiovascular Exam Cardiovascular Exam: REGULAR RHYTHM - GI/Abdominal Exam GI & Abdominal Exam: Tenderness, Normal Bowel Sounds Assessment and Plan - Assessment and Plan (Free Text) Assessment: 27 yo female with brittle diabetes and gastroparesis renal input sugar control anti emetics
--- NOTE | 2018-01-01 11:48 | CP.PCM.PN ---
Subjective - Date & Time of Evaluation Date of Evaluation: 12/31/17 Time of Evaluation: 18:00 - Subjective Subjective: vomiting continues Objective - Vital Signs/Intake and Output Vital Signs (last 24 hours): Temp Pulse Resp BP Pulse Ox 98.7 F 80 18 138/90 100 01/01/18 08:00 01/01/18 08:00 01/01/18 08:00 01/01/18 10:02 01/01/18 08:00 - Medications Medications: Current Medications Acetaminophen (Tylenol 325mg Tab) 650 mg PO Q4 PRN PRN Reason: Pain, moderate (4-7) Amlodipine Besylate (Norvasc) 10 mg PO DAILY [facility] Last Admin: 01/01/18 08:36 Dose: 10 mg Calcitriol (Rocaltrol) 0.25 mcg PO MWF [facility] Last Admin: 01/01/18 08:37 Dose: 0.25 mcg Clonidine HCl (Catapres-Tts2 0.2 Mg/24 Hr) 1 patch TD Q7D [facility] Last Admin: 12/26/17 09:17 Dose: 1 patch Dextrose (Dextrose 50% Inj) 0 ml IV STAT PRN; Protocol PRN Reason: Hypoglycemia Protocol Last Admin: 12/29/17 16:35 Dose: 50 ml Dextrose (Glutose 15) 0 gm PO ONCE PRN; Protocol PRN Reason: Hypoglycemia Protocol Diphenhydramine HCl (Benadryl) 50 mg PO Q6 PRN PRN Reason: Itching / Pruritus Last Admin: 12/31/17 21:25 Dose: 50 mg Ergocalciferol (Drisdol 50,000 Intl Units Cap) 1 cap PO Q7D [facility] Last Admin: 12/31/17 17:08 Dose: Not Given Famotidine (Pepcid) 20 mg PO DAILY [facility] Last Admin: 01/01/18 08:36 Dose: 20 mg Glucagon (Glucagen Diagnostic Kit) 0 mg IM STAT PRN; Protocol PRN Reason: Hypoglycemia Protocol Hydroxyzine HCl (Atarax) 25 mg PO HS PRN PRN Reason: Anxiety Last Admin: 12/31/17 21:24 Dose: 25 mg Sodium Chloride (Sodium Chloride 0.9%) 1,000 mls @ 100 mls/hr IV .Q10H [facility] Stop: 01/02/18 07:51 Last Admin: 01/01/18 08:37 Dose: 100 mls/hr Insulin Detemir (Levemir) 12 units SC HS [facility] Last Admin: 12/31/17 21:18 Dose: 12 units Insulin Human Lispro (Humalog) 0 units SC ACHS [facility] Last Admin: 01/01/18 06:37 Dose: Not Given Insulin Human Lispro (Humalog) 8 units SC AC [facility] Last Admin: 01/01/18 09:09 Dose: 8 units Labetalol HCl (Trandate) 20 mg IVP Q4H PRN PRN Reason: Systolic Blood Pressure Last Admin: 01/01/18 09:10 Dose: 20 mg Lorazepam (Ativan) 0.5 mg IVP BID PRN PRN Reason: Anxiety Last Admin: 01/01/18 10:04 Dose: 0.5 mg Morphine Sulfate (Morphine) 2 mg IVP Q8 [facility] Last Admin: 01/01/18 10:05 Dose: Not Given Ondansetron HCl (Zofran Inj) 6 mg IVP [facility] Last Admin: 01/01/18 07:33 Dose: 6 mg Pantoprazole Sodium (Protonix Ec Tab) 40 mg PO DAILY [facility] Last Admin: 01/01/18 08:37 Dose: 40 mg Tramadol HCl (Ultram) 50 mg PO Q6 PRN PRN Reason: Pain, moderate (4-7) Last Admin: 12/31/17 15:29 Dose: 50 mg - Labs Labs: 12/28/17 11:51 12/31/17 18:45 PT 10.9 Seconds (9.8-13.1) 12/22/17 10:20 INR 1.0 12/22/17 10:20 APTT 27.2 Seconds (25.6-37.1) 12/22/17 10:20 - Neck Exam Neck Exam: Normal Inspection - Respiratory Exam Respiratory Exam: Clear to Ausculation Bilateral, NORMAL BREATHING PATTERN - Cardiovascular Exam Cardiovascular Exam: REGULAR RHYTHM - GI/Abdominal Exam GI & Abdominal Exam: Tenderness, Normal Bowel Sounds Assessment and Plan - Assessment and Plan (Free Text) Assessment: 27 yo female with brittle diabetes and gastroparesis renal input sugar control anti emetics, pro kinetics as tolerated
--- NOTE | 2018-01-01 12:15 | CP.PCM.PN ---
Subjective - Date & Time of Evaluation Date of Evaluation: 01/01/18 Time of Evaluation: 12:14 - Subjective Subjective: no overnight events Objective - Vital Signs/Intake and Output Vital Signs (last 24 hours): Temp Pulse Resp BP Pulse Ox 98.7 F 80 18 138/90 100 01/01/18 08:00 01/01/18 08:00 01/01/18 08:00 01/01/18 10:02 01/01/18 08:00 - Medications Medications: Current Medications Acetaminophen (Tylenol 325mg Tab) 650 mg PO Q4 PRN PRN Reason: Pain, moderate (4-7) Amlodipine Besylate (Norvasc) 10 mg PO DAILY [facility] Last Admin: 01/01/18 08:36 Dose: 10 mg Calcitriol (Rocaltrol) 0.25 mcg PO MWF [facility] Last Admin: 01/01/18 08:37 Dose: 0.25 mcg Clonidine HCl (Catapres-Tts2 0.2 Mg/24 Hr) 1 patch TD Q7D [facility] Last Admin: 12/26/17 09:17 Dose: 1 patch Dextrose (Dextrose 50% Inj) 0 ml IV STAT PRN; Protocol PRN Reason: Hypoglycemia Protocol Last Admin: 12/29/17 16:35 Dose: 50 ml Dextrose (Glutose 15) 0 gm PO ONCE PRN; Protocol PRN Reason: Hypoglycemia Protocol Diphenhydramine HCl (Benadryl) 50 mg PO Q6 PRN PRN Reason: Itching / Pruritus Last Admin: 12/31/17 21:25 Dose: 50 mg Ergocalciferol (Drisdol 50,000 Intl Units Cap) 1 cap PO Q7D [facility] Last Admin: 12/31/17 17:08 Dose: Not Given Famotidine (Pepcid) 20 mg PO DAILY [facility] Last Admin: 01/01/18 08:36 Dose: 20 mg Glucagon (Glucagen Diagnostic Kit) 0 mg IM STAT PRN; Protocol PRN Reason: Hypoglycemia Protocol Hydroxyzine HCl (Atarax) 25 mg PO HS PRN PRN Reason: Anxiety Last Admin: 12/31/17 21:24 Dose: 25 mg Sodium Chloride (Sodium Chloride 0.9%) 1,000 mls @ 100 mls/hr IV .Q10H [facility] Stop: 01/02/18 07:51 Last Admin: 01/01/18 08:37 Dose: 100 mls/hr Insulin Detemir (Levemir) 12 units SC HS [facility] Last Admin: 12/31/17 21:18 Dose: 12 units Insulin Human Lispro (Humalog) 0 units SC ACHS [facility] Last Admin: 01/01/18 06:37 Dose: Not Given Insulin Human Lispro (Humalog) 8 units SC AC [facility] Last Admin: 01/01/18 09:09 Dose: 8 units Labetalol HCl (Trandate) 20 mg IVP Q4H PRN PRN Reason: Systolic Blood Pressure Last Admin: 01/01/18 09:10 Dose: 20 mg Lorazepam (Ativan) 0.5 mg IVP BID PRN PRN Reason: Anxiety Last Admin: 01/01/18 10:04 Dose: 0.5 mg Morphine Sulfate (Morphine) 2 mg IVP Q8 [facility] Last Admin: 01/01/18 10:05 Dose: Not Given Ondansetron HCl (Zofran Inj) 6 mg IVP [facility] Last Admin: 01/01/18 07:33 Dose: 6 mg Pantoprazole Sodium (Protonix Ec Tab) 40 mg PO DAILY [facility] Last Admin: 01/01/18 08:37 Dose: 40 mg Tramadol HCl (Ultram) 50 mg PO Q6 PRN PRN Reason: Pain, moderate (4-7) Last Admin: 12/31/17 15:29 Dose: 50 mg - Labs Labs: 12/28/17 11:51 12/31/17 18:45 PT 10.9 Seconds (9.8-13.1) 12/22/17 10:20 INR 1.0 12/22/17 10:20 APTT 27.2 Seconds (25.6-37.1) 12/22/17 10:20 - Head Exam Head Exam: NORMOCEPHALIC - Eye Exam Eye Exam: Normal appearance - Neck Exam Neck Exam: Normal Inspection - Respiratory Exam Respiratory Exam: Clear to Ausculation Bilateral, NORMAL BREATHING PATTERN - Cardiovascular Exam Cardiovascular Exam: REGULAR RHYTHM - GI/Abdominal Exam GI & Abdominal Exam: Soft, Normal Bowel Sounds Assessment and Plan - Assessment and Plan (Free Text) Assessment: 27 yo female with gastroparesis doing better sugar control
[2018-01-01] MEDS: Sodium Chloride 0.9% 1,000 ML IV SCH (17:00)
--- NOTE | 2018-01-01 18:55 | CP.PCM.PN ---
Subjective - Date & Time of Evaluation Date of Evaluation: 01/01/18 Time of Evaluation: 16:00 - Subjective Subjective: Patient with vomiting yesterday, subsided today; tolerating liquids; didn't urinate yesterday but urinating today; Objective - Vital Signs/Intake and Output Vital Signs (last 24 hours): Temp Pulse Resp BP Pulse Ox 98.7 F 89 17 122/77 100 01/01/18 16:05 01/01/18 16:05 01/01/18 16:05 01/01/18 16:05 01/01/18 16:05 - Medications Medications: Current Medications Acetaminophen (Tylenol 325mg Tab) 650 mg PO Q4 PRN PRN Reason: Pain, moderate (4-7) Amlodipine Besylate (Norvasc) 10 mg PO DAILY [facility] Last Admin: 01/01/18 08:36 Dose: 10 mg Calcitriol (Rocaltrol) 0.25 mcg PO MWF [facility] Last Admin: 01/01/18 08:37 Dose: 0.25 mcg Clonidine HCl (Catapres-Tts2 0.2 Mg/24 Hr) 1 patch TD Q7D [facility] Last Admin: 12/26/17 09:17 Dose: 1 patch Dextrose (Dextrose 50% Inj) 0 ml IV STAT PRN; Protocol PRN Reason: Hypoglycemia Protocol Last Admin: 12/29/17 16:35 Dose: 50 ml Dextrose (Glutose 15) 0 gm PO ONCE PRN; Protocol PRN Reason: Hypoglycemia Protocol Diphenhydramine HCl (Benadryl) 50 mg PO Q6 PRN PRN Reason: Itching / Pruritus Last Admin: 12/31/17 21:25 Dose: 50 mg Ergocalciferol (Drisdol 50,000 Intl Units Cap) 1 cap PO Q7D [facility] Last Admin: 12/31/17 17:08 Dose: Not Given Famotidine (Pepcid) 20 mg PO DAILY [facility] Last Admin: 01/01/18 08:36 Dose: 20 mg Glucagon (Glucagen Diagnostic Kit) 0 mg IM STAT PRN; Protocol PRN Reason: Hypoglycemia Protocol Hydroxyzine HCl (Atarax) 25 mg PO HS PRN PRN Reason: Anxiety Last Admin: 12/31/17 21:24 Dose: 25 mg Sodium Chloride (Sodium Chloride 0.9%) 1,000 mls @ 75 mls/hr IV .[id number] [facility] Stop: 01/02/18 07:51 Insulin Detemir (Levemir) 14 units SC HS [facility] Insulin Human Lispro (Humalog) 0 units SC ACHS [facility] Last Admin: 01/01/18 17:14 Dose: Not Given Insulin Human Lispro (Humalog) 8 units SC AC [facility] Last Admin: 01/01/18 17:42 Dose: 8 units Labetalol HCl (Trandate) 20 mg IVP Q4H PRN PRN Reason: Systolic Blood Pressure Last Admin: 01/01/18 09:10 Dose: 20 mg Lorazepam (Ativan) 0.5 mg IVP Q8 PRN PRN Reason: Anxiety Last Admin: 01/01/18 18:48 Dose: 0.5 mg Mirtazapine (Remeron) 7.5 mg PO HS [facility] Morphine Sulfate (Morphine) 2 mg IVP Q8 [facility] Last Admin: 01/01/18 17:45 Dose: Not Given Ondansetron HCl (Zofran Inj) 6 mg IVP [facility] Last Admin: 01/01/18 17:41 Dose: 6 mg Pantoprazole Sodium (Protonix Ec Tab) 40 mg PO DAILY [facility] Last Admin: 01/01/18 08:37 Dose: 40 mg Tramadol HCl (Ultram) 50 mg PO Q6 PRN PRN Reason: Pain, moderate (4-7) Last Admin: 12/31/17 15:29 Dose: 50 mg - Labs Labs: 12/28/17 11:51 12/31/17 18:45 PT 10.9 Seconds (9.8-13.1) 12/22/17 10:20 INR 1.0 12/22/17 10:20 APTT 27.2 Seconds (25.6-37.1) 12/22/17 10:20 - Constitutional Appears: Non-toxic, No Acute Distress - Eye Exam Eye Exam: Normal appearance - ENT Exam ENT Exam: Mucous Membranes Moist - Respiratory Exam Respiratory Exam: Clear to Ausculation Bilateral. absent: Respiratory Distress - Cardiovascular Exam Cardiovascular Exam: RRR, +S1, +S2 - GI/Abdominal Exam GI & Abdominal Exam: Soft. absent: Distended, Tenderness - Extremities Exam Additional comments: no leg edema; - Neurological Exam Neurological Exam: Alert, Awake - Psychiatric Exam Psychiatric exam: Normal Mood. absent: Agitated - Skin Skin Exam: Warm. absent: Cyanosis Assessment and Plan (1) Acute on chronic renal insufficiency Assessment & Plan: NICKI on late CKD IV; likely pre-renal etiology, again worsened by GI losses; patient is prone to intravascular volume depletion especially given her severe nephrotic syndrome; pre-renal state can sometimes progress to ATN in these patients which in her case could worsen her uremia and precipitate need for dialysis; need to keep volume replete with IVF; otherwise, stable respiratory and electrolyte status; no need for HD at this time; -keep on NS at 75 cc/hr; -avoid nephrotoxic agents (especially NSAIDS); -recommend against morphine (metabolites accumulate in renal failure; may also precipitate her vomiting); Status: Acute (2) CKD (chronic kidney disease), stage IV Assessment & Plan: AVF procedure cancelled after patient vomiting yesterday; will need to f/u with vascular surgeon as outpatient; -continue ergocalciferol 50,000 u weekly and calcitriol 0.25 mcg qMWF for CKD mineral bone disorder; Status: Chronic (3) Hypertensive CKD (chronic kidney disease) Assessment & Plan: BP relatively controlled; continue current meds; IV labetalol for SBP > 170 (tends to be severely hypertensive during her gastroparesis flares); Status: Acute (4) Anemia in CKD (chronic kidney disease) Assessment & Plan: Hgb below goal (10-11g); will give another dose of EPO before d/c; Status: Chronic (5) Nephrotic syndrome Status: Chronic (6) Diabetes Status: Acute
--- NOTE | 2018-01-01 20:20 | PN ---
DATE: 01/01/2018 SUBJECTIVE: This is a 27-year-old female with recent uncontrolled type 1 insulin-dependent diabetes, now being followed closely for metabolic management. She also has progressive renal insufficiency as noted with almost end-stage renal disease and dialysis dependence. LABORATORY DATA: Her latest chemistry showed a BUN of 45, sodium 136, potassium 3.9, chloride 106, CO2 of 20, glucose 320 and creatinine 6.6. Her glucose levels are fluctuating, ranging from 235-293 mg/dl. ASSESSMENT AND PLAN: So at this time, we will modify once again her basal and bolus insulin regimen and increase the Levemir to 14 units subcu at bedtime daily to start tonight. We will also continue the same low-dose correction scale using Humalog insulin with coverage to be given only above 300 for Humalog insulin as ordered. We will obtain serial chemistries and supplement accordingly needed. We will also continue the same prandial insulin given as Humalog at 8 units thrice a day before meals as given. We will obtain serial chemistries and supplement accordingly as needed and we will follow up. Yamileth Charles MD
[2018-01-01] MEDS ORDERED: Insulin Detemir 100 Units/ml Inj SC SCH (22:00)
[2018-01-02] MEDS: Insulin Lispro (humaLOG) 100 Units/ml Inj SC SCH ×7 (06:32→21:51)
[2018-01-02] MEDS: Sodium Chloride 0.9% 1,000 ML IV SCH (06:56)
[2018-01-02] MEDS: Pantoprazole 40 mg EC Tab PO SCH (10:14)
--- NOTE | 2018-01-02 12:45 | PN ---
DATE: 01/02/2018 ENDOCRINOLOGY FOLLOWUP NOTE LOCATION: In room 403. SUBJECTIVE: This is a 27-year-old female with recent uncontrolled type 1 insulin-dependent diabetes, presenting here with recurrent abdominal pain from underlying diabetic gastroparesis and also has significant progressive renal insufficiency as noted thereof. Her glycemic levels are fluctuating with the variability of her oral intake and also with dietary indiscretion and preferential intake of all kinds of juices as noted. Her glucose values have ranged from 208 to 450 mg/dL this morning as noted. Her bedtime glucose was 204 to 205 as noted. LABORATORY DATA: Her latest chemistry showed a BUN of 45, sodium 136, potassium 3.9, chloride 106, CO2 of 20, glucose 320, and creatinine 6.6. ASSESSMENT AND PLAN: So at this time, we will modify once again her basal and bolus insulin regimen and increase the Levemir to 16 units subcutaneously at bedtime daily to start tonight. We will increase the Humalog to 10 units t.i.d. before meals to start today. We will obtain serial chemistries and supplement accordingly as needed. We will follow. Yamileth Charles MD
[2018-01-02] MEDS ORDERED: Sodium Chloride 0.9% 1,000 ML IV SCH (16:30)
--- NOTE | 2018-01-02 16:37 | RAD ---
Date of service: 01/02/2018 HISTORY: abd pain, n/v COMPARISON: None available. FINDINGS: BOWEL: Nonobstructive bowel gas pattern. Prominent fecal material seen throughout the colon suggestive constipation. Impaction pattern not apparent at this time. No free intrarenal gas is grossly evident. No abnormal intra-abdominal calcifications. Apparent left femoral central venous line in position terminating at the level of the left common iliac vein. BONES: Normal. OTHER FINDINGS: None. IMPRESSION: Likely constipation. Nonobstructive bowel gas pattern. Left central venous line placed by left common femoral approach.
[2018-01-02 18:39] LABS: HEMOGLOBIN 10.2 g/dL (12.0-16.0); MEAN CELL VOLUME 87.9 fl (81.0-99.0); MEAN CORPUSCULAR HEMOGLOBIN 28.7 pg (27.0-31.0); MEAN CORPUSCULAR HGB CONC 32.7 g/dL (33.0-37.0); RBC 3.54 Mil/uL (3.80-5.20); RED CELL DISTRIBUTION WIDTH 14.5 % (11.5-14.5); WHITE BLOOD COUNT 8.3 K/uL (4.8-10.8)
[2018-01-02 19:04] LABS: ALB/GLOB RATIO 0.9 (1.0-2.1); ALBUMIN 3.1 g/dL (3.5-5.0); ALT/SGPT 22 U/L (9-52); AST/SGOT 30 U/L (14-36); BLOOD UREA NITROGEN 33 mg/dl (7-17); CALCIUM 8.3 mg/dL (8.4-10.2); GFR NON-AFRICAN AMERICAN 9
[2018-01-02] MEDS ORDERED: Insulin Detemir 100 Units/ml Inj SC SCH (22:00)
--- NOTE | 2018-01-03 06:23 | PQF ---
PROVIDER RESPONSE TEXT: Confirmed and current REVIEWER QUERY TEXT: Conflicting Documentation Clarification Admission for Severe Hypoglycemic Episodes listed in the H and P: agree with Endocrinology admitted f or symptomatic hypoglycemia and suboptimal oral intake because of also concurrent acute exacerbatio n of diabetic gastroparesis? -- Confirmed and current -- Confirmed, treated and resolved -- Ruled out -- Other, please specify Admission order: Admitting dx.: Gastroparesis, Hypoglycemia, Elevated Troponin, Seizures H and P: includes: for evaluation and management of severe hypoglycemic episodes. Plan: includes: Gastroenterology consult, Dr Rodriguez due to chronic gastroparesis Endocrinology consult: includes: uncontrolled and decompensated type 1 insulin-dependent diabetes, p resenting here with extremes of glycemic fluctuations initially with symptomatic hypoglycemia and ass ociated neuroglycopenic and hyperadrenergic manifestations of the same with concomitant variable and suboptimal oral intake because of also concurrent acute exacerbation of diabetic gastroparesis. The patient's Clinical Indicators include: - Query created by: Liudmila Harrington on 12/29/2017 3:17 PM Electronically signed by: Garret Rg 01/03/2018 6:19 AM
[2018-01-03] MEDS: Insulin Lispro (humaLOG) 100 Units/ml Inj SC SCH ×7 (06:45→21:52)
--- NOTE | 2018-01-03 07:01 | CP.PCM.PN ---
Subjective - Date & Time of Evaluation Date of Evaluation: 01/02/18 Time of Evaluation: 17:00 - Subjective Subjective: Patient tolerating diet well, consuming small quantities; no vomiting; urinating well; no sob; Objective - Vital Signs/Intake and Output Vital Signs (last 24 hours): Temp Pulse Resp BP Pulse Ox 98 F 80 18 149/83 100 01/03/18 05:00 01/03/18 05:00 01/03/18 05:00 01/03/18 05:00 01/03/18 05:00 Intake and Output: 01/02/18 01/03/18 18:59 06:59 Intake Total 1020 Balance 1020 - Medications Medications: Current Medications Acetaminophen (Tylenol 325mg Tab) 650 mg PO Q4 PRN PRN Reason: Pain, moderate (4-7) Amlodipine Besylate (Norvasc) 10 mg PO DAILY [facility] Last Admin: 01/02/18 10:13 Dose: 10 mg Calcitriol (Rocaltrol) 0.25 mcg PO MWF [facility] Last Admin: 01/01/18 08:37 Dose: 0.25 mcg Clonidine HCl (Catapres-Tts2 0.2 Mg/24 Hr) 1 patch TD Q7D [facility] Last Admin: 01/02/18 10:08 Dose: 1 patch Dextrose (Dextrose 50% Inj) 0 ml IV STAT PRN; Protocol PRN Reason: Hypoglycemia Protocol Last Admin: 12/29/17 16:35 Dose: 50 ml Dextrose (Glutose 15) 0 gm PO ONCE PRN; Protocol PRN Reason: Hypoglycemia Protocol Diphenhydramine HCl (Benadryl) 50 mg PO Q6 PRN PRN Reason: Itching / Pruritus Last Admin: 01/01/18 22:54 Dose: 50 mg Ergocalciferol (Drisdol 50,000 Intl Units Cap) 1 cap PO Q7D [facility] Last Admin: 12/31/17 17:08 Dose: Not Given Famotidine (Pepcid) 20 mg PO DAILY [facility] Last Admin: 01/02/18 10:14 Dose: 20 mg Glucagon (Glucagen Diagnostic Kit) 0 mg IM STAT PRN; Protocol PRN Reason: Hypoglycemia Protocol Hydroxyzine HCl (Atarax) 25 mg PO HS PRN PRN Reason: Anxiety Last Admin: 01/01/18 22:54 Dose: 25 mg Sodium Chloride (Sodium Chloride 0.9%) 1,000 mls @ 40 mls/hr IV .Q24H [facility] Stop: 01/03/18 16:19 Last Admin: 01/02/18 16:30 Dose: 40 mls/hr Insulin Detemir (Levemir) [address] [facility] Last Admin: 01/02/18 21:57 Dose: 16 units Insulin Human Lispro (Humalog) 0 units SC ACHS [facility] Last Admin: 01/03/18 06:45 Dose: Not Given Insulin Human Lispro (Humalog) 10 units SC AC [facility] Last Admin: 01/02/18 16:28 Dose: 10 units Labetalol HCl (Trandate) 20 mg IVP Q4H PRN PRN Reason: Systolic Blood Pressure Last Admin: 01/01/18 09:10 Dose: 20 mg Lorazepam (Ativan) 0.5 mg IVP Q8 PRN PRN Reason: Anxiety Last Admin: 01/03/18 04:42 Dose: 0.5 mg Mirtazapine (Remeron) 7.[address] [facility] Last Admin: 01/02/18 21:56 Dose: 7.5 mg Morphine Sulfate (Morphine) 2 mg IVP Q8 PRN PRN Reason: Pain, severe (8-10) Ondansetron HCl (Zofran Inj) 6 mg IVP [facility] Last Admin: 01/02/18 21:56 Dose: 6 mg Pantoprazole Sodium (Protonix Ec Tab) 40 mg PO DAILY [facility] Last Admin: 01/02/18 10:14 Dose: 40 mg Tramadol HCl (Ultram) 50 mg PO Q6 PRN PRN Reason: Pain, moderate (4-7) Last Admin: 12/31/17 15:29 Dose: 50 mg - Labs Labs: 01/02/18 18:06 01/02/18 18:06 PT 10.9 Seconds (9.8-13.1) 12/22/17 10:20 INR 1.0 12/22/17 10:20 APTT 27.2 Seconds (25.6-37.1) 12/22/17 10:20 - Constitutional Appears: Non-toxic, No Acute Distress - Eye Exam Eye Exam: Normal appearance - Respiratory Exam Respiratory Exam: Clear to Ausculation Bilateral. absent: Respiratory Distress - Cardiovascular Exam Cardiovascular Exam: RRR, +S1, +S2 - GI/Abdominal Exam GI & Abdominal Exam: Soft. absent: Distended, Tenderness - Extremities Exam Additional comments: no leg edema; - Neurological Exam Neurological Exam: Alert, Awake - Psychiatric Exam Psychiatric exam: Normal Affect, Normal Mood. absent: Agitated - Skin Skin Exam: Warm. absent: Cyanosis Assessment and Plan (1) Acute on chronic renal insufficiency Assessment & Plan: NICKI on late CKD IV; labs obtained this evening show renal function slightly improved; stable volume and electrolyte status; patient tolerating PO diet well; no indication for [employer] at this time; stable for d/c from renal end; will f/u very closely as outpatient; will setup outpatient vascular surgery f/u for AVF creation next week; will have eval with transplant center in 2 weeks; -decreasing IVF to NS at 40 cc/hr; -avoid all nephrotoxic agents (especially NSAIDS - can shut down renal reserve); Status: Acute (2) CKD (chronic kidney disease), stage IV Assessment & Plan: See above; continue calcitriol qMWF and ergocalciferol weekly on d/c; Status: Chronic (3) Hypertensive CKD (chronic kidney disease) Assessment & Plan: BP control fluctuating; continue current meds on d/c (clonidine patch 0.2 mg and amlodipine 10 mg); holding diuretics for now, will restart upon f/u as outpatient; Status: Acute (4) Anemia in CKD (chronic kidney disease) Assessment & Plan: Hgb at goal (10-11g), no need for EPO redosing currently; will monitor as outpatient; Status: Chronic (5) Nephrotic syndrome Status: Chronic (6) Diabetes Status: Acute
[2018-01-03] MEDS: Pantoprazole 40 mg EC Tab PO SCH (09:22)
--- NOTE | 2018-01-03 13:51 | PN ---
DATE: 01/03/2018 ENDO FOLLOWUP NOTE LOCATION: Room 403. SUBJECTIVE: This is a 27-year-old female with recent uncontrolled type 1 insulin-dependent diabetes, now being followed closely for metabolic management. She also has some progressive renal insufficiency with end-stage renal disease as noted. Her glycemic fluctuations are finally improved as noted overnight with glucose levels ranging from 112 to 142 and 185 mg/dL. LABORATORY DATA: Her chemistry showed a BUN of 33, sodium 136, potassium 4.1, chloride 107, CO2 22, glucose 112, and creatinine 5.5. ASSESSMENT AND PLAN: So, at this time, we will continue the same basal and bolus insulin regimen to allow for dose equilibration and keep her on the Humalog given as 10 units t.i.d. before meals as ordered. We will continue the Levemir given as 16 units subcutaneous at bedtime daily as given. We will obtain serial chemistries and supplement accordingly as needed. We will follow. Yamileth Charles MD
[2018-01-03] MEDS ORDERED: Insulin Detemir 100 Units/ml Inj SC SCH (22:00)
[2018-01-04] MEDS ORDERED: Insulin Lispro (humaLOG) 100 Units/ml Inj SC STA (00:16)
[2018-01-04 04:50] VITALS: PULSE 77
[2018-01-04] MEDS: Insulin Lispro (humaLOG) 100 Units/ml Inj SC SCH ×2 (06:47→09:24)
[2018-01-04 07:55] VITALS: BP 162/99; RESP 18; TEMP 97.4; O2SAT 100
--- NOTE | 2018-01-04 09:14 | PN ---
DATE: 01/04/2018 SUBJECTIVE: The patient is seen and examined. Interim events noted. Consults noted and appreciated. The patient remains in progressive care unit with telemetry monitoring. The patient is sleeping, arousable, feels okay. Denies any specific complaint. No nausea, no vomiting. Tolerated foods. No specific issue reported by nursing staff, but with an elevated sugar. PHYSICAL EXAMINATION: GENERAL: The patient is in no acute distress. VITAL SIGNS: Stable. HEART EXAM: S1, S2, normal and regular. LUNGS: Good bilateral air exchange. ABDOMEN: Soft, nontender. EXTREMITY: No edema. No calf swelling. No acute ischemia. CENTRAL NERVOUS SYSTEM: Essentially unchanged. DIAGNOSTIC DATA: Available diagnostic data reviewed. ASSESSMENT AND PLAN: Overall, the patient's general medical condition is stable. Sugars are ____ elevated. We will . Garret gR MD
--- NOTE | 2018-01-04 09:24 | PN ---
DATE: 01/03/2018 SUBJECTIVE: The patient seen and examined. Interim events noted. Consults noted and appreciated. Nephrology followup and interventions noted and appreciated. The patient remains in progressive care unit on telemetry monitoring. The patient is sleeping, arousable, feels okay. No chest pain, shortness of breath. No abdominal pain. The patient is tolerating food. No nausea or vomiting. The patient did have chronic pain. PHYSICAL EXAMINATION: GENERAL: The patient is in no acute distress. VITAL SIGNS: Stable. HEART: S1 and S2, normal, regular. LUNGS: Good bilateral air exchange. ABDOMEN: Soft, nontender. No organomegaly. No fluid. Bowel sounds are plus and normal. No sign of acute abdomen. No guarding, no rigidity, no rebound. EXTREMITIES: No edema. No calf swelling. No tenderness. No acute ischemia. CENTRAL NERVOUS SYSTEM: Essentially unchanged. DIAGNOSTIC DATA: Available diagnostic data reviewed. Telemetry monitoring does not show significant arrhythmias. ASSESSMENT AND PLAN: Overall, the patient is medically stable transformation consultant. The patient is discharged home. Discharge plan was discussed with the patient and she will be followed up by and Surgery as outpatient. dialysis arrangement . Plan as ordered. Garret Rg MD
[2018-01-04] MEDS: Pantoprazole 40 mg EC Tab PO SCH (09:25)
--- NOTE | 2018-01-04 19:26 | PN ---
DATE: 01/04/2018 LOCATION: Room 403. SUBJECTIVE: This is a 27-year-old female with recent uncontrolled type 1 insulin-dependent diabetes, now being followed closely for metabolic management. Hyperglycemic levels are supervened overnight with of the dinner time Humalog insulin by the nursing staff with supervening marked hyperglycemic accelerations as noted overnight, and glucose values were ranging from 441 to over 500 mg/dL. LABORATORY DATA: Her latest glucose level today is 234 mg/dL. Her latest chemistries showed a BUN of 53, sodium 136, potassium 4.1, chloride 107, CO2 of 22, creatinine 5.5. PLAN: So at this time, we will continue the modified basal and bolus insulin regimen as given with Humalog given as 10 units t.i.d. before meals as ordered. We will also continue the Levemir given as 20 units subcu at bedtime daily as given. She has been advised to resume her home glucose monitoring at times, especially with the lability of her oral intake. She has also been advised to follow up with the renal specialist or curriculum and instruction director regarding the advanced azotemia and progressive renal insufficiency. We will follow. Yamileth Charles MD
== END 2018-01-04 14:18 | disposition home or self-care (01) | DRG 533 ==
LOC: H.ER 09:42 → H.ERHOLD 12:30 → H.TEL 17:06
PROVIDERS: ADMIT Internal Medicine; ATTEND Internal Medicine
PROC: 06HN33Z Insertion of Infusion Device into Left Femoral Vein, Percutaneous Approach (ICD-10-PCS; 2017-12-22)
PROC: 3E02340 Introduction of Influenza Vaccine into Muscle, Percutaneous Approach (ICD-10-PCS; principal; 2017-12-23)
DX: E10.43 Type 1 diabetes mellitus with diabetic autonomic (poly)neuropathy (principal); N17.9 Acute kidney failure, unspecified; E10.21 Type 1 diabetes mellitus with diabetic nephropathy; R56.9 Unspecified convulsions; E86.0 Dehydration; E10.319 Type 1 diabetes mellitus with unspecified diabetic retinopathy without macular edema; E10.65 Type 1 diabetes mellitus with hyperglycemia; N18.4 Chronic kidney disease, stage 4 (severe); E10.649 Type 1 diabetes mellitus with hypoglycemia without coma; K31.84 Gastroparesis; E10.22 Type 1 diabetes mellitus with diabetic chronic kidney disease; Z79.4 Long term (current) use of insulin; D63.1 Anemia in chronic kidney disease; Z96.41 Presence of insulin pump (external) (internal); Z91.14 Patient's other noncompliance with medication regimen; Z23 Encounter for immunization; E78.5 Hyperlipidemia, unspecified; E10.8 Type 1 diabetes mellitus with unspecified complications; G89.29 Other chronic pain; I12.9 Hypertensive chronic kidney disease with stage 1 through stage 4 chronic kidney disease, or unspecified chronic kidney disease

== ENCOUNTER 2018-01-10 13:27 | Inpatient (IN) | payer MEDICAID ==
[2018-01-10] MEDS ORDERED: Sodium Chloride 0.9% 1,000 ML IV STA (13:39)
--- NOTE | 2018-01-10 13:51 | ED PDOC ---
HPI: Abdomen Time Seen by Provider: 01/10/18 13:35 Chief Complaint (Provider): epigastric pain and vomiting History Per: Patient History/Exam Limitations: no limitations Onset/Duration Of Symptoms: Hrs (this morning) Current Symptoms Are (Timing): Still Present Location Of Pain/Discomfort: Epigastric Associated Symptoms: Vomiting Additional Complaint(s): Vi Motley is a 27 year old female, with a past medical history of diabetes and chronic kidney disease, who was brought to the emergency department by EMS for epigastric pain and vomiting onset since this morning. Mother states patient becomes very anxious and starts shaking when she has episodes like that. Mother denies any history of seizure disorders. Patient is currently complaining of epigastric pain and intractable vomiting. No further medical complaints. PMD: None provided. Past Medical History Reviewed: Historical Data, Nursing Documentation, Vital Signs - Medical History PMH: Anemia, Bronchitis, Diabetes (Type I), HTN, Chronic Kidney Disease Denies: HIV - Surgical History Surgical History: No Surg Hx - Family History Family History: States: Unknown Family Hx - Home Medications Home Medications: Ambulatory Orders Medication Instructions Recorded Insulin Lispro [humALOG] 8 unit SC ACTID 11/04/17 Liraglutide [Victoza 2-Ángel] 0.6 mg SC DAILY 11/04/17 Metoclopramide [Reglan] 10 mg PO Q8 PRN 11/04/17 amLODIPine [Norvasc] 5 mg PO DAILY 11/04/17 Insulin Glargine,Hum.rec.anlog 13 unit SC HS 12/22/17 [Basaglar Kwikpen U-100] Calcitriol [Rocaltrol] 0.25 mcg PO MWF #15 sgl 01/04/18 DiphenhydrAMINE [Benadryl] 50 mg PO Q8 #15 cap 01/04/18 Ergocalciferol [Drisdol 50,000 1 cap PO Q7D #8 cap 01/04/18 Intl Units Cap] Lorazepam [Ativan] 0.5 mg PO BID PRN #8 tab 01/04/18 Mirtazapine [Remeron] 7.5 mg PO HS #30 tab 01/04/18 Ondansetron ODT [Zofran ODT] 4 mg PO Q8H PRN #20 odt 01/04/18 Pantoprazole [Protonix EC Tab] 40 mg PO DAILY #30 ect 01/04/18 cloNIDine 0.2 mg/24 hr 1 patch TD Q7D #6 patch 01/04/18 [catapres-TTS2 0.2 mg/24 hr] hydrOXYzine HCl [Atarax] 25 mg PO HS PRN #14 tab 01/04/18 - Allergies Allergies/Adverse Reactions: Allergies Allergy/AdvReac Type Severity Reaction Status Date / Time No Known Allergies Allergy Verified 12/22/17 09:52 Review of Systems ROS Statement: Except As Marked, All Systems Reviewed And Found Negative Gastrointestinal: Positive for: Vomiting, Abdominal Pain (epigastric) Neurological: Negative for: Seizures Physical Exam - Reviewed Nursing Documentation Reviewed: Yes Vital Signs Reviewed: Yes - Physical Exam Appears: Positive for: No Acute Distress Head Exam: Positive for: ATRAUMATIC, NORMAL INSPECTION, NORMOCEPHALIC Skin: Positive for: Normal Color, Warm, Dry Eye Exam: Positive for: Normal appearance, EOMI, PERRL Neck: Positive for: Normal, Painless ROM Cardiovascular/Chest: Positive for: Regular Rate, Rhythm. Negative for: Murmur Respiratory: Positive for: Normal Breath Sounds. Negative for: Respiratory Distress Gastrointestinal/Abdominal: Positive for: Tenderness (epigastric) Back: Positive for: Normal Inspection. Negative for: L CVA Tenderness, R CVA Tenderness, Vertebral Tenderness Extremity: Positive for: Normal ROM (upper and lower extremities). Negative for: Tenderness, Deformity, Swelling Neurologic/Psych: Positive for: Alert, Oriented (x3). Negative for: Motor/Sensory Deficits (No focal deficits) - Laboratory Results Result Diagrams: 01/10/18 14:31 01/10/18 14:31 Medical Decision Making Medical Decision Making: Time: 13:35 Initial Plan: --EKG --CMP --Urine --Urine dipstick --CBC w/ differential --Sodium Chloride 1,000 ml IV 100 mls/hr --Sodium Chloride 1,000 ml IV 250 mls/hr --Pepcid 20 mg IVP --Reglan 10 mg IVP --Zofran Inj 4 mg IVP --Reevaluation Noted to have generalized tonic clonic seizure in ED. Lasted approx 30 sec with resolution with Ativan 2 mg IV. Scribe Attestation: Documented by Gio Boyd, acting as a scribe for Lino Arce MD. Provider Scribe Attestation: All medical record entries made by the Scribe were at my direction and personally dictated by me. I have reviewed the chart and agree that the record accurately reflects my personal performance of the history, physical exam, m edical decision making, and the department course for this patient. I have also personally directed, reviewed, and agree with the discharge instructions and disposition. Disposition - Clinical Impression Clinical Impression: Gastroparesis, Diabetes, Seizure, CKD (chronic kidney disease), stage IV - Patient ED Disposition Is Patient to be Admitted: Yes - Disposition Disposition Time: 15:24 Condition: FAIR - Pt Status Changed To: Hospital Disposition Of: Inpatient - Admit Certification Admit to Inpatient:: After my assessment, the patient will require hospitalization for at least two midnights. This is because of the severity of symptoms shown, intensity of services needed, and/or the medical risk in this patient being treated as an outpatient. - POA Present On Arrival: None
[2018-01-10] MEDS ORDERED: Morphine 4 MG/ML VIAL IM ONE (13:58)
[2018-01-10] MEDS ORDERED: Morphine 4 MG/ML VIAL ONE ×2 (14:03→14:41)
[2018-01-10] MEDS: Sodium Chloride 0.9% 1,000 ML IV SCH ×2 (14:29→21:46)
[2018-01-10] MEDS ORDERED: Morphine 4 MG/ML VIAL IVP ONE (14:37)
[2018-01-10 14:43] LABS: VENOUS BLOOD GAS BASE EXCESS -4.7 mmol/L (0.0-2.0); VENOUS BLOOD GAS PCO2 37 mmHg (40-60); VENOUS BLOOD GAS PO2 43 mm/Hg (30-55); VENOUS BLOOD PH 7.35 (7.32-7.43)
[2018-01-10 14:47] LABS: BASO # 0.1 K/uL (0.0-0.2); BASO % 0.5 % (0.0-2.0); HEMOGLOBIN 10.9 g/dL (12.0-16.0); LYMPH # 0.8 K/uL (1.0-4.3); LYMPH % 5.9 % (20.0-40.0); MEAN CELL VOLUME 89.7 fl (81.0-99.0); MEAN CORPUSCULAR HEMOGLOBIN 28.5 pg (27.0-31.0); MEAN CORPUSCULAR HGB CONC 31.8 g/dL (33.0-37.0); MONO # 0.3 K/uL (0.0-0.8); NEUT % 91.6 % (50.0-75.0); PLATELET COUNT 496 K/uL (130-400); RBC 3.82 Mil/uL (3.80-5.20); RED CELL DISTRIBUTION WIDTH 15.2 % (11.5-14.5); WHITE BLOOD COUNT 14.2 K/uL (4.8-10.8)
[2018-01-10 15:09] LABS: ALBUMIN 3.6 g/dL (3.5-5.0); CALCIUM 9.4 mg/dL (8.4-10.2)
--- NOTE | 2018-01-10 16:00 | RAD ---
Date of service: 01/10/2018 HISTORY: Cough. COMPARISON: Comparison chest 12/28/2017. FINDINGS: LUNGS: Poor inspiration with low lung volumes, crowded bronchovascular markings and mild bibasilar atelectasis. PLEURA: No significant pleural effusion identified, no pneumothorax apparent. CARDIOVASCULAR: No aortic atherosclerotic calcification present. Normal cardiac size. No pulmonary vascular congestion. OSSEOUS STRUCTURES: No significant abnormalities. VISUALIZED UPPER ABDOMEN: Normal. OTHER FINDINGS: None. IMPRESSION: Poor inspiration with low lung volumes, crowded bronchovascular markings and mild bibasilar atelectasis.
[2018-01-10 16:48] LABS: BASOPHIL 1 % (0-2); LYMPHOCYTE 3 % (20-50); NEUTROPHIL 96 % (42-75); PLATELET ESTIMATE SLIGHTLY INCREASED (NORMAL); TOTAL CELLS COUNTED 100
[2018-01-10 16:49] LABS: ANISOCYTOSIS SLIGHT; OVALOCYTES SLIGHT; POIKILOCYTOSIS SLIGHT
[2018-01-10 16:50] LABS: MONOCYTE 0 % (0-10)
[2018-01-10] MEDS ORDERED: Ergocalciferol 50,000 Intl Units Cap PO SCH (20:30)
[2018-01-10] MEDS ORDERED: Insulin Detemir 100 Units/ml Inj SC SCH (22:00)
--- NOTE | 2018-01-10 23:19 | CARD ---
APPROVED REPORT Date of service: 01/10/2018 EKG Measurement Heart [id number] <Conclusion> Sinus tachycardia Otherwise normal ECG
[2018-01-11] MEDS ORDERED: Insulin Lispro (humaLOG) 100 Units/ml Inj SC SCH (07:30)
[2018-01-11] MEDS ORDERED: Dextrose 50% SYRINGE Inj (50 ml) IVP ONE (08:06)
[2018-01-11] MEDS ORDERED: Dextrose 50% SYRINGE Inj (50 ml) ONE (08:12)
[2018-01-11] MEDS ORDERED: Dextrose 50% SYRINGE Inj (50 ml) IV PRN (09:37)
[2018-01-11] MEDS ORDERED: Glucagon Recombinant 1 mg Inj IM PRN (09:37)
[2018-01-11] MEDS: Pantoprazole 40 mg EC Tab PO SCH (09:43)
[2018-01-11] MEDS ORDERED: Sodium Chloride 0.45% 1,000 ML IV SCH (09:45)
[2018-01-11] MEDS: Insulin Lispro (humaLOG) 100 Units/ml Inj SC SCH ×2 (11:30→16:30)
[2018-01-11 11:57] LABS: HEMOGLOBIN 9.7 g/dL (12.0-16.0); MEAN CELL VOLUME 90.7 fl (81.0-99.0); MEAN CORPUSCULAR HEMOGLOBIN 28.7 pg (27.0-31.0); MEAN CORPUSCULAR HGB CONC 31.7 g/dL (33.0-37.0); RBC 3.38 Mil/uL (3.80-5.20); RED CELL DISTRIBUTION WIDTH 15.4 % (11.5-14.5); WHITE BLOOD COUNT 9.8 K/uL (4.8-10.8)
[2018-01-11 12:05] LABS: CALCIUM 8.7 mg/dL (8.4-10.2)
--- NOTE | 2018-01-11 12:55 | HP ---
CHIEF COMPLAINT: Abdominal pain and vomiting. HISTORY OF PRESENT ILLNESS: This is a 27-year-old female who was recently discharged from hospital after treatment for gastroparesis who is a known case of diabetes, chronic kidney disease, diabetic gastroparesis and diabetic autonomic neuropathy, who was having intractable vomiting and epigastric pain. So, the patient was brought to the emergency room and was admitted for further management. REVIEW OF SYSTEMS: Positive for abdominal pain, vomiting, and also the patient is requesting lot of Ativan. Otherwise is negative for headache, dizziness, syncope, loss of consciousness, chest pain, shortness of breath, any constipation, diarrhea, any new joint or extremity pain. All other organ system is unremarkable. PAST MEDICAL HISTORY: Significant for type 1 diabetes, hypertension, chronic kidney disease, diabetic autonomic neuropathy, gastroparesis, anemia. PAST SURGICAL HISTORY: Unremarkable. PERSONAL HISTORY: The patient is currently nonsmoker and nondrinker. No substance abuse. MEDICATIONS: The patient is on multiple medications including lispro, Victoza, Reglan, Basaglar, Benadryl, vitamin D, Ativan, Remeron, Zoloft, Protonix, Atarax, and clonidine. ALLERGIES: THE PATIENT IS NOT ALLERGIC TO ANY MEDICATIONS. FAMILY HISTORY: Noncontributory. PHYSICAL EXAMINATION: GENERAL: Well developed, well nourished, overweight 27-year-old female in no acute distress. VITAL SIGNS: Temperature 98.6, pulse 108, respirations 12, blood pressure 148/89, and saturation 100%. HEENT: Pupils reacting to light. No JVD. No thyromegaly. No lymphadenopathy. No nystagmus. Normocephalic and atraumatic skull. HEART: S1 and S2 normal and regular. No significant murmur, gallop or rub is heard. LUNGS: Good bilateral air exchange. No rales or rhonchi. ABDOMEN: The patient is very sensitive all over the abdomen, but there is no sign of any acute abdomen. No guarding. No rigidity. No rebound. Bowel sounds are plus and normal. EXTREMITIES: No edema. No calf swelling. No tenderness. No acute ischemia. OUTPATIENT DIETITIAN: Exam is essentially unchanged and there is no sign of any acute gross focal motor or sensory neurological deficit. DIAGNOSTIC DATA: Available diagnostic data reviewed. Telemetry monitoring does not show significant arrhythmias. Chest x-ray is clear. EKG does not reveal any acute ST-T changes. LABORATORY DATA: WBC 14.2, hemoglobin 10.9, hematocrit 34.2, platelets 496. Lactic acid is 2.5. Sodium 142, potassium 4.3, chloride 109, bicarbonate 19, BUN 50, creatinine 5.5. SMA-12, otherwise, is unremarkable. Lipase level is 42. ADMITTING IMPRESSION: Intractable vomiting, epigastric pain, type 1 diabetes with hyperglycemia, hypertension, chronic kidney disease, diabetic autonomic neuropathy, and gastroparesis. Psychiatric disorder. PLAN: Plan as ordered. Case and plan discussed with the patient. Garret Rg MD
--- NOTE | 2018-01-11 17:27 | CP.PCM.CON ---
History of Present Illness - History of Present Illness History of Present Illness: 27 yo woman w/ abdominal pain is referred for pain management. Although patient has been admitted frequently in the past, this is the first time I have been consulted. Patient has a complicated medical history and also history of non- compliance in the past. Toradol IV is contra-indicated due to renal insufficiency, and per staff opioid is relatively contra-indicated. Diet has been ordered, but patient is essentially NPO. Patient was sleeping comfortably with her mother at the bedside when I examined her. Past Patient History - Infectious Disease Hx of Infectious Diseases: None - Past Medical History & Family History Past Medical History?: Yes - Past Social History Smoking Status: Former Smoker - CARDIAC Hx Cardiac Disorders: Yes - PULMONARY Hx Respiratory Disorders: Yes - NEUROLOGICAL Hx Neurological Disorder: Yes - HEENT Hx HEENT Problems: No - RENAL Hx Chronic Kidney Disease: Yes - ENDOCRINE/METABOLIC Hx Endocrine Disorders: Yes Hx Diabetes Mellitus Type 1: Yes - HEMATOLOGICAL/ONCOLOGICAL Hx Blood Disorders: Yes Hx AIDS: No Hx Anemia: Yes Hx Human Immunodeficiency Virus (HIV): No - INTEGUMENTARY Hx Dermatological Problems: No - MUSCULOSKELETAL/RHEUMATOLOGICAL Hx Musculoskeletal Disorders: No Hx Falls: No - GASTROINTESTINAL Hx Gastrointestinal Disorders: Yes Other/Comment: Gastroparesis - GENITOURINARY/GYNECOLOGICAL Hx Genitourinary Disorders: No - PSYCHIATRIC Hx Psychophysiologic Disorder: No Hx Substance Use: No - SURGICAL HISTORY Hx Surgeries: No - ANESTHESIA Hx Anesthesia: No Hx Anesthesia Reactions: No Hx Malignant Hyperthermia: No Has any member of the family had a problem w/ anesthesia?: No Meds Allergies/Adverse Reactions: Allergies Allergy/AdvReac Type Severity Reaction Status Date / Time No Known Allergies Allergy Verified 12/22/17 09:52 - Medications Medications: Current Medications Amlodipine Besylate (Norvasc) 5 mg PO DAILY [facility] Last Admin: 01/11/18 09:39 Dose: 5 mg Calcitriol (Rocaltrol) 0.25 mcg PO MWF [facility] Last Admin: 01/11/18 09:39 Dose: 0.25 mcg Dextrose (Dextrose 50% Inj) 0 ml IV STAT PRN; Protocol PRN Reason: Hypoglycemia Protocol Dextrose (Glutose 15) 0 gm PO ONCE PRN; Protocol PRN Reason: Hypoglycemia Protocol Ergocalciferol (Drisdol 50,000 Intl Units Cap) 1 cap PO Q7D [facility] Last Admin: 01/10/18 21:26 Dose: 1 cap Glucagon (Glucagen Diagnostic Kit) 0 mg IM STAT PRN; Protocol PRN Reason: Hypoglycemia Protocol Hydroxyzine HCl (Atarax) 25 mg PO HS PRN PRN Reason: Anxiety Last Admin: 01/11/18 00:48 Dose: 25 mg Sodium Chloride (Sodium Chloride 0.45%) 1,000 mls @ 75 mls/hr IV .[id number] [facility] Stop: 01/12/18 09:41 Insulin Detemir (Levemir) 10 units SC HS [facility] Insulin Human Lispro (Humalog) 6 units SC ACTID [facility] Last Admin: 01/11/18 11:30 Dose: Not Given Lorazepam (Ativan) 0.5 mg IVP Q8 PRN PRN Reason: Agitation Last Admin: 01/11/18 15:30 Dose: 0.5 mg Mirtazapine (Remeron) 7.5 mg PO HS [facility] Last Admin: 01/10/18 21:25 Dose: 7.5 mg Ondansetron HCl (Zofran Inj) 4 mg IVP Q8 PRN PRN Reason: Nausea/Vomiting Last Admin: 01/10/18 21:25 Dose: 4 mg Pantoprazole Sodium (Protonix Ec Tab) 40 mg PO DAILY [facility] Last Admin: 01/11/18 09:43 Dose: 40 mg Torsemide (Demadex) 5 mg PO DAILY [facility] Last Admin: 01/11/18 09:39 Dose: 5 mg Physical Exam - GI/Abdominal Exam GI & Abdominal Exam: Soft Results - Vital Signs Recent Vital Signs: Last Vital Signs Temp 98.4 F 01/11/18 15:47 Pulse 123 H 01/11/18 15:47 Resp 20 01/11/18 15:47 BP 160/71 H 01/11/18 12:26 Pulse Ox 97 01/11/18 15:47 - Labs Result Diagrams: 01/11/18 11:50 01/11/18 11:50 Labs: Laboratory Results - last 24 hr 01/10/18 01/10/18 01/11/18 13:34 19:00 00:18 WBC RBC Hgb Hct MCV MCH MCHC RDW Plt Count Sodium Potassium Chloride Carbon Dioxide Anion Gap BUN Creatinine Est GFR ( Amer) Est GFR (Non-Af Amer) POC Glucose (mg/dL) 204 H 239 H 270 H Random Glucose Lactic Acid Calcium 01/11/18 01/11/18 01/11/18 05:23 07:58 11:04 WBC RBC Hgb Hct MCV MCH MCHC RDW Plt Count Sodium Potassium Chloride Carbon Dioxide Anion Gap BUN Creatinine Est GFR ( Amer) Est GFR (Non-Af Amer) POC Glucose (mg/dL) 109 28 L* 256 H Random Glucose Lactic Acid Calcium 01/11/18 01/11/18 01/11/18 11:50 11:50 11:50 WBC 9.8 RBC 3.38 L Hgb 9.7 L Hct 30.7 L MCV 90.7 MCH 28.7 MCHC 31.7 L RDW 15.4 H Plt Count 432 H Sodium 142 Potassium 5.1 H Chloride 110 H Carbon Dioxide 21 L Anion Gap 16 BUN 50 H Creatinine 5.7 H Est GFR ( Amer) 11 Est GFR (Non-Af Amer) 9 POC Glucose (mg/dL) Random Glucose 237 H Lactic Acid 3.1 H Calcium 8.7 01/11/18 16:05 WBC RBC Hgb Hct MCV MCH MCHC RDW Plt Count Sodium Potassium Chloride Carbon Dioxide Anion Gap BUN Creatinine Est GFR ( Amer) Est GFR (Non-Af Amer) POC Glucose (mg/dL) 169 H Random Glucose Lactic Acid Calcium Assessment & Plan (1) Gastroparesis Assessment and Plan: 27 yo woman w/ abdominal pain, gastroparesis. Toradol and opioids are contra- indicated due to her medical conditions. - supportive care, bowel rest - consider IV Tylenol if pain persists tomorrow - psych care Status: Acute
--- NOTE | 2018-01-11 22:46 | CON ---
DATE: 01/11/2018 REFERRING DOCTOR: . REASON FOR CONSULTATION: Constipation. HISTORY OF PRESENT ILLNESS: This is a pleasant 27-year-old female, who essentially required frequent admissions for diabetic gastroparesis comes in with nausea, vomiting, and epigastric discomfort. The pain actually is improved, now is much more improved, but has had episodes of hypoglycemia and some nausea, which has since resolved. Currently, lying in bed comfortably, in no apparent distress. PAST MEDICAL HISTORY: As above. PAST SURGICAL HISTORY: As above. MEDICATIONS: Reviewed. REVIEW OF SYSTEMS: All other systems have been reviewed and negative apart from the HPI. PHYSICAL EXAMINATION: GENERAL: A pleasant young female, lying comfortably in bed, in no apparent distress. VITAL SIGNS: Here in the hospital, grossly unremarkable. HEENT: Head: Normocephalic and atraumatic. Eyes: Pupils are equally reactive to light bilaterally. No conjunctival pallor or icterus. NECK: Supple, normal range of motion. No lymphadenopathy appreciated. LUNGS: Coarse breath sounds bilaterally. HEART: S1 and S2. Regular rate and rhythm. No murmurs appreciated. ABDOMEN: Soft and nontender. There is discomfort in the right upper quadrant. No rebound, no guarding. RECTAL: Deferred. EXTREMITIES: Pulses present bilaterally. SKIN: Warm, dry, and intact. NEUROLOGIC: A and O x 3. LABORATORY DATA: All labs and radiology have been reviewed. WBC is 14.3, hemoglobin 10.9, creatinine is 5.7, and potassium 5.1. ASSESSMENT AND PLAN: This is a 27-year-old female with gastroparesis and poorly controlled diabetes. Zofran and antiemetics were left for now. KUB, sugar control, renal input, clear liquids as tolerated. Thank you for the consult. Kit Rodriguez MD/ PhD cc:
[2018-01-11] MEDS: Insulin Detemir 100 Units/ml Inj SC SCH (23:59)
--- NOTE | 2018-01-12 04:38 | CON ---
DATE: 01/11/2018 ENDOCRINOLOGY CONSULTATION LOCATION: Room 408. HISTORY OF PRESENT ILLNESS: This is a 27-year-old female with known history of type 1 insulin-dependent diabetes, presenting here with intractable nausea, dyspepsia and vomiting with exacerbation of diabetic gastroparesis and is now being referred for diabetic evaluation and management. PAST MEDICAL HISTORY: As mentioned above, history of type 1 insulin-dependent diabetes, on a variable dosing of insulin at home because of her vomiting episodes as noted thereof. Her Humalog dose has varied from 4 to 10 units t.i.d. before meals as given. Her basal insulin was also given as Levemir varying from 10 to 15 units at bedtime as given. She also has diabetic polyneuropathy and diabetic nephropathy with marked and progressive azotemia and renal insufficiency as noted. She also has hypertension and dyslipidemia. She also has severe diabetic gastroparesis with multiple hospital admissions for exacerbations of the same. The patient apparently now is chemically dependent on narcotic analgesics and is begging for Dilaudid therapy for pain relief as noted. FAMILY HISTORY: Positive for hypertension and diabetes. SOCIAL HISTORY: The patient has a supportive family. No known substance use. REVIEW OF SYSTEMS: As mentioned above, admits to generalized body weakness with progressive bouts of dizziness and lightheadedness, worse on the day of admission. No chest pains, palpitations or PNDs. Her oral intake has been variable with nausea, dyspepsia, and intractable vomiting episodes with upper abdominal pain, apparently relieved only by necrotic analgesics as noted. PHYSICAL EXAMINATION: GENERAL: Average-built female, in no apparent distress. VITAL SIGNS: With a blood pressure of 140/80 and 150/90, pulse of 100 beats per minute and regular, temperature 98, respirations 20. Height is 5 feet 3 inches. Weight is 145 pounds. HEENT: Head: Normocephalic. Eyes: Anicteric with pink conjunctivae. Funduscopy is not possible at this time. Ears, nose and throat otherwise normal. NECK: Supple. Thyroid gland is normal in size. No carotid bruits or cervical adenopathy. HEART: Adynamic precordium. S1 and S2 are rapid and regular. LUNGS: Clear to auscultation. ABDOMEN: Flat, soft with positive bowel sounds. EXTREMITIES: No peripheral edema. Pulses are +2 bilaterally. LABORATORY DATA: Chemistries: BUN of 50, sodium 142, potassium 5.1, chloride 110, CO2 of 21, glucose is 237 and creatinine is 5.7. Her fasting glucose this morning was with the repeat glucose now is 256. ASSESSMENT: This is a 27-year-old female with uncontrolled and decompensated type 1 insulin-dependent diabetes, presenting here with exacerbation of diabetic gastroparesis with intractable nausea, dyspepsia and vomiting with upper abdominal pain, chemically dependent narcotic analgesics at this time. PLAN OF MANAGEMENT: We will modify her current insulin regimen at this time and lower the dosing of her Humalog to 6 units subcu t.i.d. before meals to start today. We will also lower the basal insulin with Levemir down to 10 units subcu at bedtime daily to start tonight. Because of the variability of her oral intake, we will lower the current insulin regimen and titrate accordingly as her oral intake improves thereof. We will obtain a hemoglobin A1c to confirm her prior glycemic control and baseline thyroid function studies will be ordered. We will obtain serial chemistries and supplement accordingly as needed. We will follow up. Yamileth Charles MD
[2018-01-12 05:37] LABS: HEMOGLOBIN 9.4 g/dL (12.0-16.0); MEAN CELL VOLUME 88.7 fl (81.0-99.0); MEAN CORPUSCULAR HEMOGLOBIN 28.9 pg (27.0-31.0); MEAN CORPUSCULAR HGB CONC 32.6 g/dL (33.0-37.0); RBC 3.24 Mil/uL (3.80-5.20); RED CELL DISTRIBUTION WIDTH 15.4 % (11.5-14.5); WHITE BLOOD COUNT 8.6 K/uL (4.8-10.8)
--- NOTE | 2018-01-12 05:40 | CON ---
DATE: 01/11/2018 NEPHROLOGY CONSULTATION HISTORY OF PRESENT ILLNESS: The patient is a 27-year-old female with past medical history of hypertension, diabetes with diabetic nephropathy and nephrotic syndrome, slight CKD 4, severe gastroparesis, history of pseudoseizures, admitted with recurrent flare of gastroparesis. Nephrology being consulted for acute kidney injury. The patient is well known to our service over the past 1 year; has had recurrent admissions with gastroparesis flares over the past 2 plus months; last discharged about three weeks ago. The patient again admitted with recurrent vomiting. At the time of encounter, the patient is extremely upset and crying that she is in pain; demanding pain and anxiety medication. Per nursing staff, she had been sleeping well earlier this morning before suddenly waking up and asking for pain medications; also has been seen sneaking out of room to obtain juices to drink; has been observed to vomit soon after taking juices. PAST MEDICAL HISTORY: As above. SOCIAL HISTORY: Nonsmoker. REVIEW OF SYSTEMS: Unable to obtain as the patient is historical, continues to demand pain and anxiety medication. PHYSICAL EXAMINATION: VITAL SIGNS: This morning blood pressure 162/104, heart rate 110, respirations 20, temperature 98.3, and O2 saturation 98% on room air. GENERAL: Exam is limited due to the patient's agitation; seen standing in hallway demanding pain medication; not in distress at that time. Able to ambulate well without any obvious dyspnea. GASTROINTESTINAL: The patient observed vomiting copious amounts of fluid; unable to perform rest of exam. We will defer to tomorrow. LABORATORY DATA: CBC: WBC 9.8, hemoglobin 9.7, hematocrit 30.7, platelets 432. Chemistry panel: Sodium 142, potassium 5.1, chloride 110, bicarb 21, BUN 50, creatinine 5.7, glucose 237, calcium 8.7, lactic acid 3.1, albumin from yesterday afternoon 3.6, increased from baseline of mid to high at 2. Chest x-ray directly visualized. Lungs clear. ASSESSMENT AND PLAN: 1. Acute kidney injury, on late chronic kidney disease 4, likely purulent etiology in the setting of gastrointestinal losses, however, the patient has not been at her baseline renal function at least as seen on blood work in over six weeks. There is a possibility that renal failure may have progressed and there is some uremic component to the patient's vomiting. The patient's labs are consistent with some degree of hemoconcentration on presentation. The patient is continuing to vomit and has ongoing losses as well. The patient was counseled that she may need to start dialysis at this point if we cannot stabilize her renal function; The patient is not yet giving her consent in this matter. Continue IV fluids with half normal saline at 125 mL per hour. Need to avoid all nephrotoxic agents, especially nonsteroidal anti-inflammatory drugs as they can shut down her residual renal function. 2. Chronic kidney disease stage 4 with estimated glomerular filtration rate less than 20. The patient needs to be prepared for dialysis. We had arranged for arteriovenous fistula creation on last admission, however, this was canceled due to recurrence of the patient's vomiting. At this point, we may need to begin dialysis with catheter. 3. Hypertensive chronic kidney disease, severe elevations in blood pressure often seen during her gastroparesis flares; the patient had been on clonidine patch 0.2 mg at time of discharge and amlodipine 5 mg daily. We will restart clonidine patch 0.1 mg for now. Continue to hold torsemide until renal function is stabilized and back toward baseline. No role for QAMAR inhibitor or ARB at this late stage of renal failure. 4. Anemia of chronic kidney disease. Hemoglobin with a goal of 10 to 11 g for chronic kidney disease. We will dose Epogen once blood pressure better controlled. 5. Nephrotic syndrome. The patient has over 10 g proteinuria. Unfortunately, no role for renin-angiotensin system blockade at this stage. Goal of care is now adequate glycemic and blood pressure control. 6. Diabetes. Very brittle diabetic. Previous admissions have been with extremely high blood sugars and hypoglycemic episodes. The patient is also known to consume large amount of juices during this admission. Suggest close followup with Endocrine. Thank you for this referral. We will be following up closely. Musa Martines MD
[2018-01-12 06:09] LABS: ALB/GLOB RATIO 0.9 (1.0-2.1); ALBUMIN 2.9 g/dL (3.5-5.0); CALCIUM 8.2 mg/dL (8.4-10.2)
--- NOTE | 2018-01-12 07:51 | CP.PCM.CON ---
History of Present Illness - History of Present Illness History of Present Illness: Psychiatry consult note Chief Estimator evaluated patient on 01/01/18 during her last medical admission. CC: Anxiety HPI: 27 yo female w/ DM, CKD, pseudoseizures, admitted w/ worsening diabetes, abdominal pain and gastroparesis, patient was sleepy during interview, but did report feeling anxious in the context of chronic medical issues. She denies that her depression has gotten worse since her last evaluation. She denies AH/VH/SI/HI. PPHx: History of treatment w/ Zoloft; started on Remeron on 01/01/18 PMHx: DM, CKD, pseudoseizures, gastroparesis ALL: NKDA Impression: 27 yo female w/ adjustment disorder with mixed anxiety and depressed mood. -No acute psychiatric admission or 1:1 indicated -Increase Remeron to 15 mg PO HS -Ativan 0.5 mg PO/IV TID or Q8Hr PRN anxiety Past Patient History - Infectious Disease Hx of Infectious Diseases: None - Past Medical History & Family History Past Medical History?: Yes - Past Social History Smoking Status: Former Smoker - CARDIAC Hx Cardiac Disorders: Yes - PULMONARY Hx Respiratory Disorders: Yes - NEUROLOGICAL Hx Neurological Disorder: Yes - HEENT Hx HEENT Problems: No - RENAL Hx Chronic Kidney Disease: Yes - ENDOCRINE/METABOLIC Hx Endocrine Disorders: Yes Hx Diabetes Mellitus Type 1: Yes - HEMATOLOGICAL/ONCOLOGICAL Hx Blood Disorders: Yes Hx AIDS: No Hx Anemia: Yes Hx Human Immunodeficiency Virus (HIV): No - INTEGUMENTARY Hx Dermatological Problems: No - MUSCULOSKELETAL/RHEUMATOLOGICAL Hx Musculoskeletal Disorders: No Hx Falls: No - GASTROINTESTINAL Hx Gastrointestinal Disorders: Yes Other/Comment: Gastroparesis - GENITOURINARY/GYNECOLOGICAL Hx Genitourinary Disorders: No - PSYCHIATRIC Hx Psychophysiologic Disorder: No Hx Substance Use: No - SURGICAL HISTORY Hx Surgeries: No - ANESTHESIA Hx Anesthesia: No Hx Anesthesia Reactions: No Hx Malignant Hyperthermia: No Has any member of the family had a problem w/ anesthesia?: No Meds Allergies/Adverse Reactions: Allergies Allergy/AdvReac Type Severity Reaction Status Date / Time No Known Allergies Allergy Verified 12/22/17 09:52 - Medications Medications: Current Medications Amlodipine Besylate (Norvasc) 5 mg PO DAILY [facility] Last Admin: 01/11/18 09:39 Dose: 5 mg Calcitriol (Rocaltrol) 0.25 mcg PO MWF [facility] Last Admin: 01/11/18 09:39 Dose: 0.25 mcg Dextrose (Dextrose 50% Inj) 0 ml IV STAT PRN; Protocol PRN Reason: Hypoglycemia Protocol Last Admin: 01/12/18 06:13 Dose: 50 ml Dextrose (Glutose 15) 0 gm PO ONCE PRN; Protocol PRN Reason: Hypoglycemia Protocol Ergocalciferol (Drisdol 50,000 Intl Units Cap) 1 cap PO Q7D [facility] Last Admin: 01/10/18 21:26 Dose: 1 cap Glucagon (Glucagen Diagnostic Kit) 0 mg IM STAT PRN; Protocol PRN Reason: Hypoglycemia Protocol Hydroxyzine HCl (Atarax) 25 mg PO HS PRN PRN Reason: Anxiety Last Admin: 01/11/18 00:48 Dose: 25 mg Sodium Chloride (Sodium Chloride 0.45%) 1,000 mls @ 75 mls/hr IV .[id number] [facility] Stop: 01/12/18 09:41 Last Admin: 01/11/18 20:15 Dose: 75 mls/hr Insulin Detemir (Levemir) 10 units SC HS [facility] Last Admin: 01/11/18 23:59 Dose: 10 units Insulin Human Lispro (Humalog) 4 units SC ACTID [facility] Lorazepam (Ativan) 1 mg IVP Q8 PRN PRN Reason: Agitation Last Admin: 01/12/18 07:21 Dose: 1 mg Mirtazapine (Remeron) 7.5 mg PO HS [facility] Last Admin: 01/11/18 22:40 Dose: 7.5 mg Ondansetron HCl (Zofran Inj) 4 mg IVP Q8 PRN PRN Reason: Nausea/Vomiting Last Admin: 01/11/18 19:01 Dose: 4 mg Pantoprazole Sodium (Protonix Ec Tab) 40 mg PO DAILY [facility] Last Admin: 01/11/18 09:43 Dose: 40 mg Torsemide (Demadex) 5 mg PO DAILY [facility] Last Admin: 01/11/18 09:39 Dose: 5 mg Results - Vital Signs Recent Vital Signs: Last Vital Signs Temp 98.6 F 01/12/18 01:00 Pulse 102 H 01/12/18 01:00 Resp 18 01/12/18 01:00 BP 142/84 01/12/18 01:00 Pulse Ox 99 01/12/18 01:00 - Labs Result Diagrams: 01/12/18 04:25 01/12/18 04:25 Labs: Laboratory Results - last 24 hr 01/11/18 01/11/18 01/11/18 07:58 11:04 11:50 WBC 9.8 RBC 3.38 L Hgb 9.7 L Hct 30.7 L MCV 90.7 MCH 28.7 MCHC 31.7 L RDW 15.4 H Plt Count 432 H Sodium Potassium Chloride Carbon Dioxide Anion Gap BUN Creatinine Est GFR ( Amer) Est GFR (Non-Af Amer) POC Glucose (mg/dL) 28 L* 256 H Random Glucose Lactic Acid Calcium Phosphorus Magnesium Total Bilirubin AST ALT Alkaline Phosphatase Total Protein Albumin Globulin Albumin/Globulin Ratio TSH 3rd Generation 01/11/18 01/11/18 01/11/18 11:50 11:50 16:05 WBC RBC Hgb Hct MCV MCH MCHC RDW Plt Count Sodium 142 Potassium 5.1 H Chloride 110 H Carbon Dioxide 21 L Anion Gap 16 BUN 50 H Creatinine 5.7 H Est GFR ( Amer) 11 Est GFR (Non-Af Amer) 9 POC Glucose (mg/dL) 169 H Random Glucose 237 H Lactic Acid 3.1 H Calcium 8.7 Phosphorus Magnesium Total Bilirubin AST ALT Alkaline Phosphatase Total Protein Albumin Globulin Albumin/Globulin Ratio TSH 3rd Generation 01/11/18 01/11/18 01/12/18 22:13 23:52 04:25 WBC 8.6 RBC 3.24 L Hgb 9.4 L Hct 28.8 L MCV 88.7 D MCH 28.9 MCHC 32.6 L RDW 15.4 H Plt Count 388 Sodium Potassium Chloride Carbon Dioxide Anion Gap BUN Creatinine Est GFR ( Amer) Est GFR (Non-Af Amer) POC Glucose (mg/dL) 59 L 152 H Random Glucose Lactic Acid Calcium Phosphorus Magnesium Total Bilirubin AST ALT Alkaline Phosphatase Total Protein Albumin Globulin Albumin/Globulin Ratio TSH 3rd Generation 01/12/18 01/12/18 01/12/18 04:25 06:00 06:31 WBC RBC Hgb Hct MCV MCH MCHC RDW Plt Count Sodium 145 Potassium 4.5 Chloride 115 H Carbon Dioxide 23 Anion Gap 12 BUN 43 H Creatinine 5.3 H Est GFR ( Amer) 12 Est GFR (Non-Af Amer) 10 POC Glucose (mg/dL) 29 L* 155 H Random Glucose 47 L Lactic Acid Calcium 8.2 L Phosphorus 4.9 H Magnesium 2.4 H Total Bilirubin 0.1 L AST 20 ALT 24 Alkaline Phosphatase 105 Total Protein 6.1 L Albumin 2.9 L Globulin 3.2 Albumin/Globulin Ratio 0.9 L TSH 3rd Generation 1.83
[2018-01-12] MEDS: Insulin Lispro (humaLOG) 100 Units/ml Inj SC SCH ×3 (10:37→16:30)
[2018-01-12] MEDS: Pantoprazole 40 mg EC Tab PO SCH (10:38)
--- NOTE | 2018-01-12 10:48 | CP.PCM.PN ---
Subjective - Date & Time of Evaluation Date of Evaluation: 01/12/18 Time of Evaluation: 10:47 - Subjective Subjective: still with nausea Objective - Vital Signs/Intake and Output Vital Signs (last 24 hours): Temp Pulse Resp BP Pulse Ox 98.8 F 102 H 20 167/110 H 98 01/12/18 08:23 01/12/18 10:38 01/12/18 08:23 01/12/18 10:38 01/12/18 08:23 - Medications Medications: Current Medications Amlodipine Besylate (Norvasc) 5 mg PO DAILY [facility]S [facility] Last Admin: 01/12/18 10:38 Dose: 5 mg Calcitriol (Rocaltrol) 0.25 mcg PO MWF [facility] 234 [facility]S AT [facility] Last Admin: 01/11/18 09:39 Dose: 0.25 mcg Clonidine HCl (Catapres Tts1 0.1 Mg/24 Hr) 1 patch TD Q7D [facility] 234 BEDS AT [facility] Last Admin: 01/12/18 10:35 Dose: 1 patch Dextrose (Dextrose 50% Inj) 0 ml IV STAT PRN; Protocol PRN Reason: Hypoglycemia Protocol Last Admin: 01/12/18 06:13 Dose: 50 ml Dextrose (Glutose 15) 0 gm PO ONCE PRN; Protocol PRN Reason: Hypoglycemia Protocol Ergocalciferol (Drisdol 50,000 Intl Units Cap) 1 cap PO Q7D [facility] 234 BEDS AT [facility] Last Admin: 01/10/18 21:26 Dose: 1 cap Erythromycin (Erythocin) 250 mg PO Q6 [facility] 234 BEDS AT [facility]; Protocol Glucagon (Glucagen Diagnostic Kit) 0 mg IM STAT PRN; Protocol PRN Reason: Hypoglycemia Protocol Hydroxyzine HCl (Atarax) 25 mg PO HS PRN PRN Reason: Anxiety Last Admin: 01/11/18 00:48 Dose: 25 mg Sodium Chloride (Sodium Chloride 0.45%) 1,000 mls @ 125 mls/hr IV .Q8H [facility] 234 BEDS AT [facility] Stop: 01/13/18 10:41 Insulin Detemir (Levemir) 10 units SC HS [facility] 234 BEDS AT [facility] Last Admin: 01/11/18 23:59 Dose: 10 units Insulin Human Lispro (Humalog) 4 units SC ACTID [facility]CLUDE 234 BEDS AT [facility] Last Admin: 01/12/18 10:37 Dose: Not Given Lorazepam (Ativan) 0.5 mg IVP Q8 PRN PRN Reason: Agitation Mirtazapine (Remeron 15mg Odt) 15 mg PO HS [facility] 234 BEDS AT [facility] Ondansetron HCl (Zofran Inj) 4 mg IVP Q8 PRN PRN Reason: Nausea/Vomiting Last Admin: 01/11/18 19:01 Dose: 4 mg Pantoprazole Sodium (Protonix Ec Tab) 40 mg PO DAILY [facility] 234 BEDS AT [facility] Last Admin: 01/12/18 10:38 Dose: 40 mg Torsemide (Demadex) 5 mg PO DAILY [facility] 234 BEDS AT [facility] Last Admin: 01/11/18 09:39 Dose: 5 mg - Labs Labs: 01/12/18 04:25 01/12/18 04:25 - Neck Exam Neck Exam: Normal Inspection - Respiratory Exam Respiratory Exam: Clear to Ausculation Bilateral, NORMAL BREATHING PATTERN - Cardiovascular Exam Cardiovascular Exam: REGULAR RHYTHM - GI/Abdominal Exam GI & Abdominal Exam: Tenderness, Normal Bowel Sounds Assessment and Plan - Assessment and Plan (Free Text) Assessment: 27 yo female with gastroparesis add erythromycin 250 q6h zofran renal input
[2018-01-12] MEDS: Sodium Chloride 0.45% 1,000 ML IV SCH ×2 (12:19→20:22)
--- NOTE | 2018-01-12 12:37 | CP.PCM.PN ---
Subjective - Date & Time of Evaluation Date of Evaluation: 01/12/18 Time of Evaluation: 08:23 - Subjective Subjective: Patient seen and examined today at bedside, resting comfortable in bed, c/o nausea and still abdominal pain, refused KUB for this am. Objective - Vital Signs/Intake and Output Vital Signs (last 24 hours): Temp Pulse Resp BP Pulse Ox 98.8 F 102 H 20 167/110 H 98 01/12/18 08:23 01/12/18 10:38 01/12/18 08:23 01/12/18 10:38 01/12/18 08:23 - Medications Medications: Current Medications Amlodipine Besylate (Norvasc) 5 mg PO DAILY [facility] Last Admin: 01/12/18 10:38 Dose: 5 mg Calcitriol (Rocaltrol) 0.25 mcg PO MWF [facility] Last Admin: 01/11/18 09:39 Dose: 0.25 mcg Clonidine HCl (Catapres Tts1 0.1 Mg/24 Hr) 1 patch TD Q7D [facility] Last Admin: 01/12/18 10:35 Dose: 1 patch Dextrose (Dextrose 50% Inj) 0 ml IV STAT PRN; Protocol PRN Reason: Hypoglycemia Protocol Last Admin: 01/12/18 06:13 Dose: 50 ml Dextrose (Glutose 15) 0 gm PO ONCE PRN; Protocol PRN Reason: Hypoglycemia Protocol Ergocalciferol (Drisdol 50,000 Intl Units Cap) 1 cap PO Q7D [facility] Last Admin: 01/10/18 21:26 Dose: 1 cap Erythromycin (Erythocin) 250 mg PO Q6 [facility]; Protocol Glucagon (Glucagen Diagnostic Kit) 0 mg IM STAT PRN; Protocol PRN Reason: Hypoglycemia Protocol Hydroxyzine HCl (Atarax) 25 mg PO HS PRN PRN Reason: Anxiety Last Admin: 01/11/18 00:48 Dose: 25 mg Sodium Chloride (Sodium Chloride 0.45%) 1,000 mls @ 125 mls/hr IV .Q8H [facility] Stop: 01/13/18 10:41 Last Admin: 01/12/18 12:19 Dose: 125 mls/hr Insulin Detemir (Levemir) 10 units SC HS [facility] Last Admin: 01/11/18 23:59 Dose: 10 units Insulin Human Lispro (Humalog) 4 units SC ACTID [facility] Last Admin: 01/12/18 12:17 Dose: Not Given Lorazepam (Ativan) 0.5 mg IVP Q8 PRN PRN Reason: Agitation Mirtazapine (Remeron 15mg Odt) 15 mg PO HS [facility] Ondansetron HCl (Zofran Inj) 4 mg IVP Q8 PRN PRN Reason: Nausea/Vomiting Last Admin: 01/11/18 19:01 Dose: 4 mg Pantoprazole Sodium (Protonix Ec Tab) 40 mg PO DAILY [facility] Last Admin: 01/12/18 10:38 Dose: 40 mg Torsemide (Demadex) 5 mg PO DAILY [facility] Last Admin: 01/11/18 09:39 Dose: 5 mg - Labs Labs: 01/12/18 04:25 01/12/18 04:25 - Constitutional Appears: No Acute Distress - Respiratory Exam Respiratory Exam: Clear to Ausculation Bilateral, NORMAL BREATHING PATTERN - Cardiovascular Exam Cardiovascular Exam: REGULAR RHYTHM, +S1, +S2 - GI/Abdominal Exam GI & Abdominal Exam: Soft, Tenderness (diffuse), Normal Bowel Sounds. absent: Distended - Extremities Exam Extremities Exam: absent: Calf Tenderness, Pedal Edema - Neurological Exam Neurological Exam: Awake, Oriented x3 - Skin Skin Exam: Dry, Warm Assessment and Plan - Assessment and Plan (Free Text) Assessment: 27 yo woman w/ PMH of uncontrolled DM and gastroparesis admitted for evaluation of abdominal pain and vomiting. Plan: - VSS - Psych consulted - GI on board - Endocrinology on board - Nephro consulted - labs and interim notes reviewed - rest of plan as ordered Case discussed with Dr Rg
[2018-01-12] MEDS: Labetalol 5mg/ml (4ml) IV SCH ×2 (16:28→22:50)
[2018-01-12] MEDS: Erythromycin Stearat 250 mg Tab PO SCH ×2 (16:29→21:54)
--- NOTE | 2018-01-12 16:38 | CP.PCM.PCO ---
Assessment/Plan - Assessment and Plan (Free Text) Assessment: Called by LAN Leal that patient's mom was worried about her daughter's mood, questionable suicidal ideations. Patient seen and examined Found laying in bed in no acute distress. When asked if she was sad or depressed she stated "No just angry that you woke me up" Denied suicidal ideations at this time. Is being followed by Psychiatrist while inpatient, with medication management. Will continue to monitor patient closely.
[2018-01-12 19:12] LABS: SQUAMOUS EPITHIAL 6 /hpf (0-5); URINE BACTERIA MOD (<OCC); URINE BILIRUBIN NEGATIVE (NEGATIVE); URINE BLOOD NEGATIVE (NEGATIVE); URINE CLARITY SLIGHTY-CLOUDY (Clear); URINE COLOR YELLOW (YELLOW); URINE GLUCOSE (UA) >=500 mg/dL (Normal); URINE HYALINE CAST 0-2 /hpf (0-2); URINE LEUKOCYTE ESTERASE NEG Leu/uL (Negative); URINE PROTEIN >=500 mg/dL (NEGATIVE); URINE UROBILINOGEN 0.2-1.0 mg/dL (0.2-1.0)
[2018-01-12 19:26] LABS: BARBITURATES, UR NEGATIVE (NEGATIVE); BENZODIAZEPINES, UR NEGATIVE (NEGATIVE); OPIATES, UR POSITIVE (NEGATIVE); PHENCYCLIDINE, UR NEGATIVE (NEGATIVE)
--- NOTE | 2018-01-12 20:05 | CP.PCM.PN ---
Subjective - Date & Time of Evaluation Date of Evaluation: 01/12/18 Time of Evaluation: 19:15 - Subjective Subjective: Patient vomited earlier this morning but has lately been able to sip small amounts of fluid; urinating well; reports anxiety exacerbating her abd pain only being relieved by ativan; Objective - Vital Signs/Intake and Output Vital Signs (last 24 hours): Temp Pulse Resp BP Pulse Ox 98.9 F 100 H 16 171/108 H 98 01/12/18 15:53 01/12/18 15:53 01/12/18 15:53 01/12/18 15:53 01/12/18 15:53 - Medications Medications: Current Medications Amlodipine Besylate (Norvasc) 5 mg PO DAILY [facility] Last Admin: 01/12/18 10:38 Dose: 5 mg Calcitriol (Rocaltrol) 0.25 mcg PO MWF [facility] Last Admin: 01/11/18 09:39 Dose: 0.25 mcg Clonidine HCl (Catapres Tts1 0.1 Mg/24 Hr) 1 patch TD Q7D [facility] Last Admin: 01/12/18 10:35 Dose: 1 patch Dextrose (Dextrose 50% Inj) 0 ml IV STAT PRN; Protocol PRN Reason: Hypoglycemia Protocol Last Admin: 01/12/18 06:13 Dose: 50 ml Dextrose (Glutose 15) 0 gm PO ONCE PRN; Protocol PRN Reason: Hypoglycemia Protocol Ergocalciferol (Drisdol 50,000 Intl Units Cap) 1 cap PO Q7D [facility] Last Admin: 01/10/18 21:26 Dose: 1 cap Erythromycin (Erythocin) 250 mg PO Q6 [facility]; Protocol Last Admin: 01/12/18 16:29 Dose: 250 mg Glucagon (Glucagen Diagnostic Kit) 0 mg IM STAT PRN; Protocol PRN Reason: Hypoglycemia Protocol Hydroxyzine HCl (Atarax) 25 mg PO HS PRN PRN Reason: Anxiety Last Admin: 01/11/18 00:48 Dose: 25 mg Sodium Chloride (Sodium Chloride 0.45%) 1,000 mls @ 125 mls/hr IV .Q8H [facility] Stop: 01/13/18 10:41 Last Admin: 01/12/18 12:19 Dose: 125 mls/hr Insulin Detemir (Levemir) 10 units SC HS [facility] Last Admin: 11/26/18 23:59 Dose: 10 units Insulin Human Lispro (Humalog) 4 units SC ACTID [facility] Last Admin: 01/12/18 16:30 Dose: 4 units Labetalol HCl (Trandate) 10 mg IV Q6 [facility] Last Admin: 01/12/18 16:28 Dose: 10 mg Lorazepam (Ativan) 0.5 mg IVP Q8 PRN PRN Reason: Agitation Last Admin: 01/12/18 14:54 Dose: 0.5 mg Mirtazapine (Remeron 15mg Odt) 15 mg PO HS [facility] Ondansetron HCl (Zofran Inj) 4 mg IVP Q8 PRN PRN Reason: Nausea/Vomiting Last Admin: 01/12/18 14:55 Dose: 4 mg Pantoprazole Sodium (Protonix Ec Tab) 40 mg PO DAILY [facility] Last Admin: 01/12/18 10:38 Dose: 40 mg Torsemide (Demadex) 5 mg PO DAILY [facility] Last Admin: 01/11/18 09:39 Dose: 5 mg - Labs Labs: 01/12/18 04:25 01/12/18 04:25 - Constitutional Appears: Non-toxic, No Acute Distress - Eye Exam Eye Exam: Normal appearance - Respiratory Exam Respiratory Exam: Clear to Ausculation Bilateral. absent: Respiratory Distress - Cardiovascular Exam Cardiovascular Exam: RRR, +S1, +S2 - GI/Abdominal Exam GI & Abdominal Exam: Soft. absent: Distended - Extremities Exam Additional comments: no leg edema; - Neurological Exam Neurological Exam: Alert, Awake - Psychiatric Exam Psychiatric exam: Normal Mood. absent: Agitated - Skin Skin Exam: Warm. absent: Cyanosis Assessment and Plan (1) NICKI (acute kidney injury) Assessment & Plan: NICKI on late CKD IV; again with pre-renal etiology but concern that renal function may not improve back to recent baseline (creat ~3.1 last month); stable volume and electrolyte status; no definite indication to initiate HD on current admission, hope is that we can have AVF placed as outpatient and then start HD; nevertheless, if renal function doesn't show significant improvement, will need to consider starting HD on this admission; -continue 1/2NS at 125 cc/hr; -avoid nephrotoxic agents (NSAIDS can shut down residual renal function); Status: Acute (2) CKD (chronic kidney disease), stage IV Assessment & Plan: Secondary to DM nephropathy with severe nephrotic syndrome; baseline eGFR < 20 ml/min, at stage to place AVF for HD planning but will have to be done as oupatient; no role for QAMAR inhibitor/ARB at this late stage of renal failure (risk outweighs benefit); Status: Chronic (3) Gastroparesis Assessment & Plan: With recurrent flares; started on erythromycin, no renal dose adjustment needed; need to avoid morphine for pain control as the metabolites can accumulate in renal failure; Status: Acute (4) Hypertensive CKD (chronic kidney disease) Assessment & Plan: BP still elevated; clonidine patch restarted today; continue amlodipine 5 mg daily; agree with prn IV labetalol 10 mg for SBP > 160 or DBP > 110; Status: Acute (5) Anemia in CKD (chronic kidney disease) Assessment & Plan: Hgb below goal (10-11g); will re-dose EPO once BP better controlled; Status: Chronic (6) Nephrotic syndrome Status: Chronic
--- NOTE | 2018-01-12 20:15 | PN ---
DATE: 01/12/2018 ENDOCRINOLOGY FOLLOWUP NOTE LOCATION: Room 408. This is a 27-year-old female with recent uncontrolled type 1 insulin-dependent diabetes, presenting here with intractable nausea, dyspepsia and vomiting with acute exacerbation of diabetic gastroparesis and is now being followed closely for metabolic management. Once again, her oral intake has remained variable with suboptimal meal portions and developed symptomatic hypoglycemia early this morning at 6 o'clock with a glucose level of 29 mg/dL. Her glucose values have ranged today from 79 to 233 and 155 mg/dL. Her hemoglobin A1c is 7.7%. Her chemistry showed a BUN of 43, sodium 145, potassium 4.5, chloride 115, CO2 of 23, glucose 47, and creatinine 5.3. So at this time, we will modify her insulin regimen once again and lower the Humalog to 4 units subcu t.i.d. before meals as ordered. We will also lower the basal insulin with Levemir to be given as 10 units subcu at bedtime daily as given. We will obtain serial chemistries and supplement accordingly as needed. We will follow. Yamileth Charles MD
[2018-01-12] MEDS: Insulin Detemir 100 Units/ml Inj SC SCH (21:55)
[2018-01-13] MEDS: Erythromycin Stearat 250 mg Tab PO SCH ×3 (04:51→16:48)
[2018-01-13] MEDS: Sodium Chloride 0.45% 1,000 ML IV SCH (04:51)
[2018-01-13] MEDS: Labetalol 5mg/ml (4ml) IV SCH ×2 (04:51→09:04)
[2018-01-13 05:47] LABS: HEMOGLOBIN 8.9 g/dL (12.0-16.0); MEAN CELL VOLUME 88.4 fl (81.0-99.0); MEAN CORPUSCULAR HEMOGLOBIN 28.2 pg (27.0-31.0); MEAN CORPUSCULAR HGB CONC 31.9 g/dL (33.0-37.0); RBC 3.16 Mil/uL (3.80-5.20); RED CELL DISTRIBUTION WIDTH 14.9 % (11.5-14.5); WHITE BLOOD COUNT 6.9 K/uL (4.8-10.8)
[2018-01-13 06:12] LABS: ALB/GLOB RATIO 0.8 (1.0-2.1); ALBUMIN 2.5 g/dL (3.5-5.0); CALCIUM 8.1 mg/dL (8.4-10.2)
--- NOTE | 2018-01-13 07:46 | CP.PCM.PN ---
Subjective - Date & Time of Evaluation Date of Evaluation: 01/13/18 Time of Evaluation: 07:46 - Subjective Subjective: Patient seen and examined today at bedside with Dr Rg, resting comfortable in bed, feeling little better, no nausea or abdominal pain at this time, no overnight events. Objective - Vital Signs/Intake and Output Vital Signs (last 24 hours): Temp Pulse Resp BP Pulse Ox 97.8 F 87 18 163/99 H 99 01/13/18 04:45 01/13/18 04:45 01/13/18 04:45 01/13/18 04:45 01/13/18 04:45 - Medications Medications: Current Medications Amlodipine Besylate (Norvasc) 5 mg PO DAILY [facility] Last Admin: 01/12/18 10:38 Dose: 5 mg Calcitriol (Rocaltrol) 0.25 mcg PO MWF [facility] Last Admin: 01/11/18 09:39 Dose: 0.25 mcg Clonidine HCl (Catapres Tts1 0.1 Mg/24 Hr) 1 patch TD Q7D [facility] Last Admin: 01/12/18 10:35 Dose: 1 patch Dextrose (Dextrose 50% Inj) 0 ml IV STAT PRN; Protocol PRN Reason: Hypoglycemia Protocol Last Admin: 01/12/18 06:13 Dose: 50 ml Dextrose (Glutose 15) 0 gm PO ONCE PRN; Protocol PRN Reason: Hypoglycemia Protocol Ergocalciferol (Drisdol 50,000 Intl Units Cap) 1 cap PO Q7D [facility] Last Admin: 01/10/18 21:26 Dose: 1 cap Erythromycin (Erythocin) 250 mg PO Q6 [facility]; Protocol Last Admin: 01/13/18 04:51 Dose: 250 mg Glucagon (Glucagen Diagnostic Kit) 0 mg IM STAT PRN; Protocol PRN Reason: Hypoglycemia Protocol Hydroxyzine HCl (Atarax) 25 mg PO HS PRN PRN Reason: Anxiety Last Admin: 01/11/18 00:48 Dose: 25 mg Sodium Chloride (Sodium Chloride 0.45%) 1,000 mls @ 125 mls/hr IV .Q8H [facility] Stop: 01/13/18 10:41 Last Admin: 01/13/18 04:51 Dose: 125 mls/hr Insulin Detemir (Levemir) 10 units SC HS [facility] Last Admin: 01/12/18 21:55 Dose: 10 units Insulin Human Lispro (Humalog) 4 units SC ACTID [facility] Last Admin: 01/12/18 16:30 Dose: 4 units Labetalol HCl (Trandate) 10 mg IV Q6 [facility] Last Admin: 01/13/18 04:51 Dose: 10 mg Lorazepam (Ativan) 0.5 mg IVP Q8 PRN PRN Reason: Agitation Last Admin: 01/12/18 23:10 Dose: 0.5 mg Mirtazapine (Remeron 15mg Odt) 15 mg PO HS [facility] Last Admin: 01/12/18 21:55 Dose: 15 mg Ondansetron HCl (Zofran Inj) 4 mg IVP Q8 PRN PRN Reason: Nausea/Vomiting Last Admin: 01/12/18 23:10 Dose: 4 mg Pantoprazole Sodium (Protonix Ec Tab) 40 mg PO DAILY [facility] Last Admin: 01/12/18 10:38 Dose: 40 mg Torsemide (Demadex) 5 mg PO DAILY [facility] Last Admin: 01/11/18 09:39 Dose: 5 mg - Labs Labs: 01/13/18 04:10 01/13/18 04:10 - Constitutional Appears: No Acute Distress - Respiratory Exam Respiratory Exam: Clear to Ausculation Bilateral, NORMAL BREATHING PATTERN - Cardiovascular Exam Cardiovascular Exam: REGULAR RHYTHM, +S1, +S2 - GI/Abdominal Exam GI & Abdominal Exam: Soft, Tenderness (mild with deep palpation) - Extremities Exam Extremities Exam: absent: Pedal Edema - Neurological Exam Neurological Exam: Awake, Oriented x3 - Skin Skin Exam: Dry, Warm Assessment and Plan - Assessment and Plan (Free Text) Assessment: 27 yo woman w/ PMH of uncontrolled DM and gastroparesis admitted for evaluation of abdominal pain and vomiting. Plan: - VSS - Psych consulted, denies SI/HI, on remeron - GI on board - erythromycin added - Endocrinology on board - Nephro consulted - labs and interim notes reviewed - Creatinine light improvement, need for HD - rest of plan as ordered
[2018-01-13] MEDS: Insulin Lispro (humaLOG) 100 Units/ml Inj SC SCH ×3 (08:31→16:48)
[2018-01-13] MEDS: Pantoprazole 40 mg EC Tab PO SCH (08:31)
[2018-01-13 16:34] VITALS: BP 152/92; PULSE 92; RESP 16; TEMP 98.3; O2SAT 98
--- NOTE | 2018-01-14 08:37 | PN ---
DATE: 01/13/2018 ENDOCRINOLOGY FOLLOWUP NOTE LOCATION: Room 408. This is a 27-year-old female with recent uncontrolled type 1 insulin-dependent diabetes, presenting here with acute exacerbation of diabetic gastroparesis and is now being followed closely for metabolic management. Once again, her oral intake remains variable with episodic bouts of dietary indiscretion with supervening hyperglycemic accelerations as noted thereof. Her glucose levels today have ranged from 113 to 103 and 496 mg/dL. Her chemistry showed a BUN of 33, sodium 138, potassium 4, chloride 111, CO2 of 22, glucose 137, and creatinine 4.6. So at this time, we will continue the modified basal and bolus insulin regimen to allow for dose equilibration and increase the Humalog to 6 units t.i.d. before meals to start today as ordered. We will continue the basal insulin given as Levemir at 10 units subcu at bedtime daily as given. We will obtain serial chemistries and supplement accordingly as needed. We will follow up. Yamileth Charles MD
== END 2018-01-13 18:00 | disposition home or self-care (01) | DRG 533 ==
LOC: H.ER 13:27 → H.ERHOLD 15:21 → H.TEL 18:03
PROVIDERS: ADMIT Internal Medicine; ATTEND Internal Medicine
DX: E10.43 Type 1 diabetes mellitus with diabetic autonomic (poly)neuropathy (principal); N17.9 Acute kidney failure, unspecified; N18.4 Chronic kidney disease, stage 4 (severe); E10.21 Type 1 diabetes mellitus with diabetic nephropathy; E10.65 Type 1 diabetes mellitus with hyperglycemia; K31.84 Gastroparesis; I12.9 Hypertensive chronic kidney disease with stage 1 through stage 4 chronic kidney disease, or unspecified chronic kidney disease; E10.22 Type 1 diabetes mellitus with diabetic chronic kidney disease; Z87.891 Personal history of nicotine dependence; E10.649 Type 1 diabetes mellitus with hypoglycemia without coma; Z79.4 Long term (current) use of insulin; D63.1 Anemia in chronic kidney disease; F43.23 Adjustment disorder with mixed anxiety and depressed mood

== ENCOUNTER 2018-01-16 15:00 | Emergency (ER) | payer MEDICAID ==
[2018-01-16 15:07] VITALS: BP 187/117; PULSE 102; RESP 16; TEMP 97.5; O2SAT 97
[2018-01-16] MEDS ORDERED: Sodium Chloride 0.9% 1,000 ML IV STA (15:36)
[2018-01-16 15:46] LABS: BASO # 0.1 K/uL (0.0-0.2); EOS % 0.1 % (0.0-4.0); HEMOGLOBIN 10.5 g/dL (12.0-16.0); LYMPH # 1.2 K/uL (1.0-4.3); LYMPH % 14.7 % (20.0-40.0); MEAN CORPUSCULAR HEMOGLOBIN 28.8 pg (27.0-31.0); MEAN CORPUSCULAR HGB CONC 31.7 g/dL (33.0-37.0); MEAN PLATELET VOLUME 9.4 fl (7.2-11.7); MONO # 0.4 K/uL (0.0-0.8); MONO % 4.6 % (0.0-10.0); NEUT # 6.7 K/uL (1.8-7.0); NEUT % 79.6 % (50.0-75.0); RBC 3.63 Mil/uL (3.80-5.20); RED CELL DISTRIBUTION WIDTH 14.9 % (11.5-14.5); WHITE BLOOD COUNT 8.5 K/uL (4.8-10.8)
[2018-01-16 15:49] LABS: MEAN CELL VOLUME 90.7 fl (81.0-99.0)
[2018-01-16 15:57] LABS: ALBUMIN 3.2 g/dL (3.5-5.0); ALT/SGPT 26 U/L (9-52); AST/SGOT 18 U/L (14-36); BLOOD UREA NITROGEN 39 mg/dl (7-17); GFR NON-AFRICAN AMERICAN 12; LIPASE 34 U/L (23-300)
--- NOTE | 2018-01-16 18:43 | ED PDOC ---
HPI: Seizure Time Seen by Provider: 01/16/18 15:31 Chief Complaint (Nursing): Seizure Chief Complaint (Provider): Seizure History Per: Patient History/Exam Limitations: no limitations Recent Seizure Activity Began: Unknown Length Of Seizures (Duration): Unknown Additional Complaint(s): Vi Robledo is a 27 year old female with a past medical history of anemia, hypertension, diabetes, gastroparesis, anxiety and renal failure who was brought to the ED by EMS for evaluation of abdominal pain, vomiting, and possible seizure attributed to low blood sugar. Patient states that she has been here many times for the same complaints and denies any chest pain, shortness of breath, or any other medical complaints. PMD: Norris Camacho Jr. Past Medical History Reviewed: Historical Data, Nursing Documentation, Vital Signs Vital Signs: Last Vital Signs Temp 97.5 F L 01/16/18 15:02 Pulse 102 H 01/16/18 15:02 Resp 16 01/16/18 15:02 BP 187/117 H 01/16/18 15:02 Pulse Ox 97 01/16/18 15:02 - Medical History PMH: Anemia, Bronchitis, Diabetes (Type I), HTN, Chronic Kidney Disease Denies: HIV - Surgical History Surgical History: No Surg Hx - Family History Family History: States: Unknown Family Hx - Social History Current smoker - smoking cessation education provided: No Alcohol: None Drugs: Denies - Home Medications Home Medications: Ambulatory Orders Medication Instructions Recorded RX: Insulin Lispro [humALOG] 8 unit SC ACTID 11/04/17 RX: Liraglutide [Victoza 2-Ángel] 0.6 mg SC DAILY 11/04/17 RX: amLODIPine [Norvasc] 5 mg PO DAILY 11/04/17 RX: Insulin Glargine,Hum.rec.anlog 13 unit SC HS 12/22/17 [Basaglar Kwikpen U-100] RX: Calcitriol [Rocaltrol] 0.25 mcg PO MWF #15 sgl 01/04/18 RX: Ergocalciferol [Drisdol 50,000 1 cap PO Q7D #8 cap 01/04/18 Intl Units Cap] RX: Ondansetron ODT [Zofran ODT] 4 mg PO Q8H PRN #20 odt 01/04/18 RX: Pantoprazole [Protonix EC Tab] 40 mg PO DAILY #30 ect 01/04/18 RX: hydrOXYzine HCl [Atarax] 25 mg PO HS PRN #14 tab 01/04/18 RX: Erythromycin [Erythocin] 250 mg PO Q6 #40 tab 01/13/18 RX: Mirtazapine [Remeron] 15 mg PO HS #14 tab 01/13/18 RX: cloNIDine 0.1 mg/24 hr 1 patch TD Q7D #4 patch 01/13/18 [catapres TTS1 0.1 mg/24 hr] RX: Lorazepam [Ativan] 0.5 mg PO BID PRN #8 tab 01/16/18 - Allergies Allergies/Adverse Reactions: Allergies Allergy/AdvReac Type Severity Reaction Status Date / Time No Known Allergies Allergy Verified 01/16/18 21:57 Review of Systems ROS Statement: Except As Marked, All Systems Reviewed And Found Negative Cardiovascular: Negative for: Chest Pain Respiratory: Negative for: Shortness of Breath Gastrointestinal: Positive for: Vomiting, Abdominal Pain Neurological: Positive for: Seizures Physical Exam - Reviewed Nursing Documentation Reviewed: Yes Vital Signs Reviewed: Yes - Physical Exam Appears: Positive for: No Acute Distress, Uncomfortable Head Exam: Positive for: ATRAUMATIC, NORMAL INSPECTION, NORMOCEPHALIC Skin: Positive for: Normal Color, Warm, Dry Eye Exam: Positive for: EOMI, Normal appearance, PERRL ENT: Positive for: Normal ENT Inspection Neck: Positive for: Normal, Painless ROM Cardiovascular/Chest: Positive for: Tachycardia Respiratory: Positive for: Normal Breath Sounds. Negative for: Respiratory Distress Gastrointestinal/Abdominal: Positive for: Soft, Tenderness (epigastric ) Back: Positive for: Normal Inspection Extremity: Positive for: Normal ROM. Negative for: Deformity, Swelling Neurologic/Psych: Positive for: Alert, Oriented. Negative for: Motor/Sensory D eficits - Laboratory Results Result Diagrams: 01/16/18 15:39 01/16/18 15:39 - ECG O2 Sat by Pulse Oximetry: 97 (RA) Pulse Ox Interpretation: Normal - Progress Re-evaluation Time: 18:30 Condition: Re-examined, Improved Medical Decision Making Medical Decision Making: Time: 15:39 Impression: Nausea, vomiting, abdominal pain, seizure Differentials: hypoglycemic seizure, though glucose was within normal limits in ED, possible gastroparesis Plan: --Alcohol Serum --CMP --Lipase --ED Urine Dipstick --CBC --Glucose, POC --Ativan 2 mg IVP --IV Fluids --Reglan IV --Reglan 10 mg IVP --Toradol 30 mg IVP Scribe Attestation: Documented by Lexi Núñez, acting as a scribe for Alex Arrington MD. Provider Scribe Attestation: All medical record entries made by the Scribe were at my direction and personally dictated by me. I have reviewed the chart and agree that the record accurately reflects my personal performance of the history, physical exam, medical decision making, and the department course for this patient. I have also personally directed, reviewed, and agree with the discharge instructions and disposition. Disposition - Clinical Impression Clinical Impression: Hypoglycemia, CKD (chronic kidney disease), stage IV, Gastroparesis, Benzodiazepine abuse - Patient ED Disposition Is Patient to be Admitted: No Counseled Patient/Family Regarding: Studies Performed, Diagnosis, Need For Followup - Disposition Disposition: Routine/Home Disposition Time: 18:30 Condition: IMPROVED Additional Instructions: VI ROBLEDO, thank you for letting us take care of you today. Your provider was Alex Arrington MD and you were treated for SEIZURE. The emergency medical care you received today was directed at your acute symptoms. If you were prescribed any medication, please fill it and take as directed. It may take several days for your symptoms to resolve. Return to the Emergency Department if your symptoms worsen, do not improve, or if you have any other problems. Please contact your doctor or call one of the physicians/clinics you have been referred to that are listed on the Patient Visit Information form that is includ ed in your discharge packet. Bring any paperwork you were given at discharge with you along with any medications you are taking to your follow up visit. Our treatment cannot replace ongoing medical care by a primary care provider outside of the emergency department. Thank you for allowing the [facility] team to be part of your care today. If you had an X-Ray or CT scan: A Radiologist will review the ED reading if any change in treatment is needed we will contact you. If you had a blood, urine, or wound culture: It will take several days for the results, if any change in treatment is needed we will contact you. If you had an STI test: It will take 48 hours for the results. Please call after 1 week if you have not heard back. Prescriptions: RX: Lorazepam [Ativan] 0.5 mg PO BID PRN #8 tab PRN Reason: Anxiety Instructions: Gastroparesis (Delayed Gastric Emptying) (DC), Chronic Kidney Disease (DC)
== END 2018-01-16 19:40 | disposition home or self-care (01) ==
LOC: H.ER 15:00
DX: E11.22 Type 2 diabetes mellitus with diabetic chronic kidney disease (principal); E11.43 Type 2 diabetes mellitus with diabetic autonomic (poly)neuropathy; I12.9 Hypertensive chronic kidney disease with stage 1 through stage 4 chronic kidney disease, or unspecified chronic kidney disease; K31.84 Gastroparesis; F13.10 Sedative, hypnotic or anxiolytic abuse, uncomplicated; N18.4 Chronic kidney disease, stage 4 (severe); R56.9 Unspecified convulsions; Z79.4 Long term (current) use of insulin; Z79.899 Other long term (current) drug therapy
CPT/HCPCS: 80053; 80320; 82948; 83690; 85025; 96374; 96375; 99285; J1885; J2060; J2765; J7030

== ENCOUNTER 2018-01-16 21:51 | Emergency (ER) | payer MEDICAID ==
[2018-01-16 21:59] VITALS: RESP 16
[2018-01-16] MEDS ORDERED: Morphine 4 MG/ML VIAL IM STA (22:38)
[2018-01-16] MEDS ORDERED: Morphine 4 MG/ML VIAL ONE (22:44)
[2018-01-16 22:47] LABS: ABG ALLEN TEST YES; ARTERIAL BLOOD GAS HCO3 23.6 mmol/L (21-28); ARTERIAL BLOOD GAS O2 SAT 99.1 % (95-98); ARTERIAL BLOOD GAS PCO2 34 mm/Hg (35-45); ARTERIAL BLOOD GAS PH 7.42 (7.35-7.45); ARTERIAL BLOOD GAS PO2 101 mm/Hg (80-100); ARTERIAL BLOOD GAS TCO2 23.1 mmol/L (22-28)
[2018-01-16] MEDS ORDERED: Ammonia 2% Inhalant ONE (23:13)
--- NOTE | 2018-01-16 23:20 | ED PDOC ---
HPI: Abdomen Time Seen by Provider: 01/16/18 22:03 Chief Complaint (Nursing): Abdominal Pain Chief Complaint (Provider): Abdominal Pain History Per: Patient History/Exam Limitations: no limitations Onset/Duration Of Symptoms: Days Current Symptoms Are (Timing): Still Present Severity: Moderate Associated Symptoms: Vomiting Additional Complaint(s): 27 year old female with a past medical history of diabetes, end stage renal disease, and gastroparesis, frequently seen at the ED for seizure vs. pseudo- seizure and vomiting, presents to the ED for an evaluation of abdominal pain accompanied by vomiting. Patient was seen earlier today at the ED for the same complaint and was treated with Reglan and Toradol. Labs performed earlier today are at patient's baseline with no signs of infection on lab. Patient was ambulatory upon leaving the ED. As per mother, patient was feeling better, but started vomiting (bloody) when she returned home. Unable to verify blood in vomit. Patient states that she wants IV fluids and a central line, however there is no indication for central line at this time. Patient states that she is compliant with her home medications and medical appointments, but when asked about following up with her doctor about a fistula and port placement, patient states that she has not. PMD: Norris Camacho Jr. Past Medical History Reviewed: Historical Data, Nursing Documentation, Vital Signs Vital Signs: Last Vital Signs Temp 97.7 F 01/16/18 21:57 Pulse 128 H 01/16/18 21:57 Resp 16 01/16/18 21:57 BP 180/126 H 01/16/18 21:57 Pulse Ox 99 01/16/18 21:57 - Medical History PMH: Anemia, Bronchitis, Diabetes (Type I), HTN, Chronic Kidney Disease Denies: HIV Other PMH: gastroparesis - Surgical History Surgical History: No Surg Hx - Family History Family History: States: No Known Family Hx - Social History Alcohol: None Drugs: Denies - Home Medications Home Medications: Ambulatory Orders Medication Instructions Recorded Insulin Lispro [humALOG] 8 unit SC ACTID 11/04/17 Liraglutide [Victoza 2-Ángel] 0.6 mg SC DAILY 11/04/17 amLODIPine [Norvasc] 5 mg PO DAILY 11/04/17 Insulin Glargine,Hum.rec.anlog 13 unit SC HS 12/22/17 [Basaglar Kwikpen U-100] Calcitriol [Rocaltrol] 0.25 mcg PO MWF #15 sgl 01/04/18 Ergocalciferol [Drisdol 50,000 1 cap PO Q7D #8 cap 01/04/18 Intl Units Cap] Ondansetron ODT [Zofran ODT] 4 mg PO Q8H PRN #20 odt 01/04/18 Pantoprazole [Protonix EC Tab] 40 mg PO DAILY #30 ect 01/04/18 hydrOXYzine HCl [Atarax] 25 mg PO HS PRN #14 tab 01/04/18 Erythromycin [Erythocin] 250 mg PO Q6 #40 tab 01/13/18 Mirtazapine [Remeron] 15 mg PO HS #14 tab 01/13/18 cloNIDine 0.1 mg/24 hr [catapres 1 patch TD Q7D #4 patch 01/13/18 TTS1 0.1 mg/24 hr] Lorazepam [Ativan] 0.5 mg PO BID PRN #8 tab 01/16/18 - Allergies Allergies/Adverse Reactions: Allergies Allergy/AdvReac Type Severity Reaction Status Date / Time No Known Allergies Allergy Verified 01/16/18 21:57 Review of Systems ROS Statement: Except As Marked, All Systems Reviewed And Found Negative Gastrointestinal: Positive for: Vomiting (bloody, not verified.), Abdominal Pain Physical Exam - Reviewed Nursing Documentation Reviewed: Yes Vital Signs Reviewed: Yes - Physical Exam Appears: Positive for: Non-toxic. Negative for: Well (patient is seen intermittently crying, however patient was also seen lying on a stretcher and not crying when people are not present. ) Head Exam: Positive for: ATRAUMATIC, NORMOCEPHALIC Cardiovascular/Chest: Positive for: Tachycardia (tachycardic on triage while screaming) Respiratory: Positive for: Normal Breath Sounds (lungs are clear to auscultation) Gastrointestinal/Abdominal: Positive for: Normal Exam, Bowel Sounds (normal), Soft, Other (patient reports pain on palpation, however (-) guarding, (-) organomegaly, (+) bowel sounds.). Negative for: Tenderness, Organomegaly, Guarding Neurologic/Psych: Positive for: Alert, Oriented (3x) - ECG O2 Sat by Pulse Oximetry: 99 (RA) Pulse Ox Interpretation: Normal Medical Decision Making Medical Decision Makin:03 Initial impression: workup for recurrence of abdominal pain and vomiting. Questionable malingering. -- POC finger stick -- ABG -- IM haldol -- reglan -- morphine for abdominal pain and vomiting -- CT abdomen and pelvis -- reassess patient 0000 pt with normal ABG (no pH abnormality or elevated lactate). POC FS 92. While patient in CT, there was a reported seizure. however, pt without abnormalities on evaluation, no postictal state, no incontinence, and no tongue biting. Pt immediately withdrew from ammionia, opening her eyes, pushing it away without further indication of postictal state. Pt has been seen twice now in the last 40 minutes without pain or vomiting. Pt to be signed out to Dr. Quach pending CT scan results. Scribe Attestation: Documented by Jackie Nobles, acting as a scribe for Jackie Chris MD. Provider Scribe Attestation: All medical record entries made by the Scribe were at my direction and personally dictated by me. I have reviewed the chart and agree that the record accurately reflects my personal performance of the history, physical exam, medical decision making, and the department course for this patient. I have also personally directed, reviewed, and agree with the discharge instructions and disposition. Disposition - Clinical Impression Clinical Impression: Abdominal pain, Gastritis - Patient ED Disposition Is Patient to be Admitted: No - Disposition Disposition: Transfer of Care Disposition Time: 00:04 (Dr. Quach pending CT results) Condition: STABLE Forms: [employer] (Hebrew)
--- NOTE | 2018-01-17 00:12 | ED PDOC ---
- ECG O2 Sat by Pulse Oximetry: 99 (RA) Medical Decision Making Medical Decision Makin:00 Patient is signed out to me by Jackie Chris MD pending CT abdomen and pelvis, and reevaluation. 00:38 CT abdomen and pelvis read and reviewed by radiologist. FINDINGS: Minimal basilar hypoventilatory pulmonary changes. Normal unenhanced liver. Normal gallbladder and extrahepatic biliary system. Normal unenhanced spleen. Normal pancreas. Normal bilateral adrenal glands. Normal size of the right kidney. There is no right renal mass. There are no right renal calculi. There is no right hydronephrosis. Normal visualized right ureter. Normal size of the left kidney. There is no left renal mass. There are no left renal calculi. There is no left hydronephrosis. Normal visualized left ureter. Moderate sliding hiatal hernia, unchanged. Fluid-filled, thickened stomach. Normal visualized small intestine. Normal visualized colon. The appendix is visualized and appears normal. There is no demonstrated peritoneal fluid. Normal abdominal wall. Normal osseous structures. IMPRESSION: Fluid-filled, thickened stomach. Gastritis is suspected. Moderate sliding hiatal hernia, unchanged. 1:00 Patient is resting comfortably with no episodes of nausea or vomiting. 4:07 Patient is resting comfortably with no complaints. Patient is stable for discharge. Diagnosis is abdominal pain and gastroparesis. Return precautions provided. Scribe Attestation: Documented byJackie Nobles, acting as a scribe for Declan Quach MD. Provider Scribe Attestation: All medical record entries made by the Scribe were at my direction and personally dictated by me. I have reviewed the chart and agree that the record accurately reflects my personal performance of the history, physical exam, medical decision making, and the department course for this patient. I have also personally directed, reviewed, and agree with the discharge instructions and disposition. Disposition - Clinical Impression Clinical Impression: Abdominal pain, Gastritis, Gastroparesis - POA Present On Arrival: None - Disposition Disposition: Routine/Home Disposition Time: 04:07 Condition: STABLE Prescriptions: Metoclopramide [Reglan] 10 mg PO Q6 PRN #12 tab PRN Reason: Nausea/Vomiting Instructions: Gastroparesis (Delayed Gastric Emptying) (DC) Forms: [employer] (Icelandic)
[2018-01-17 04:41] VITALS: BP 124/89; PULSE 91; TEMP 98.5
--- NOTE | 2018-01-17 07:29 | CT ---
Date of service: 01/16/2018 PROCEDURE: CT Abdomen without intravenous contrast HISTORY: vomiting blood and abdominal pain COMPARISON: None. TECHNIQUE: Axial images of the abdomen from lung bases to iliac crest with and without intravenous contrast enhancement. Coronal and sagittal reformats generated. Oral contrast also administered. Intravenous contrast Dose: Radiation dose: Total exam DLP = 244.18 mGy-cm. This CT exam was performed using one or more of the following dose reduction techniques: Automated exposure control, adjustment of the mA and/or kV according to patient size, and/or use of iterative reconstruction technique. FINDINGS: LOWER THORAX: Unremarkable. LIVER: Unremarkable. No gross lesion or ductal dilatation. GALLBLADDER AND BILE DUCTS: Unremarkable. PANCREAS: Unremarkable. No gross lesion or ductal dilatation. SPLEEN: Unremarkable. ADRENALS: Unremarkable. No mass. KIDNEYS AND URETERS: Unremarkable. No hydronephrosis. No solid mass. VASCULATURE: Unremarkable. No aortic aneurysm. No aortic atherosclerotic calcification or mural plaque present. BOWEL: Unremarkable. No obstruction. No gross mural thickening. APPENDIX: Normal appendix. PERITONEUM: Unremarkable. No free fluid. No free air. LYMPH NODES: Unremarkable. No enlarged lymph nodes. BONES: No acute fracture. OTHER FINDINGS: None. IMPRESSION: Unremarkable CT of the abdomen.
[2018-01-17 22:12] VITALS: O2SAT 99
== END 2018-01-17 04:40 | disposition home or self-care (01) ==
LOC: H.ER 21:51
DX: K29.70 Gastritis, unspecified, without bleeding (principal); R10.9 Unspecified abdominal pain; K31.84 Gastroparesis
CPT/HCPCS: 36600; 74150; 81025; 82803; 82948; 96372; 99284; J1630; J2060; J2270; J2405; J2765

== ENCOUNTER 2018-01-19 10:40 | Emergency (ER) | payer MEDICAID ==
[2018-01-19 11:13] VITALS: RESP 18
--- NOTE | 2018-01-19 11:16 | ED PDOC ---
HPI: General Adult Time Seen by Provider: 01/19/18 11:03 Chief Complaint (Nursing): Altered Mental Status Chief Complaint (Provider): low sugar feeling History/Exam Limitations: no limitations Onset/Duration Of Symptoms: Days (today) Current Symptoms Are (Timing): Still Present Additional Complaint(s): Pt. states she had trouble drinking juice so she called EMS. She thought her sugar would go down. Pt. found to have a sugar of 71 by EMS. Pt. given glucagon. Pt. denies any chest pain, dyspnea, weakness, headaches, dizziness. No headaches. Here multiple times for similar issues. Demands narcotics and central line. 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) Denies: HIV - Family History Family History: States: Unknown Family Hx - Immunization History Hx Tetanus Toxoid Vaccination: No (Not sure of last date) Hx Influenza Vaccination: Yes Hx Pneumococcal Vaccination: Yes - Home Medications Home Medications: Ambulatory Orders Medication Instructions Recorded Insulin Lispro [humALOG] 8 unit SC ACTID 11/04/17 Liraglutide [Victoza 2-Ángel] 0.6 mg SC DAILY 11/04/17 amLODIPine [Norvasc] 5 mg PO DAILY 11/04/17 Insulin Glargine,Hum.rec.anlog 13 unit SC HS 12/22/17 [Basaglar Kwikpen U-100] Calcitriol [Rocaltrol] 0.25 mcg PO MWF #15 sgl 01/04/18 Ergocalciferol [Drisdol 50,000 1 cap PO Q7D #8 cap 01/04/18 Intl Units Cap] Ondansetron ODT [Zofran ODT] 4 mg PO Q8H PRN #20 odt 01/04/18 Pantoprazole [Protonix EC Tab] 40 mg PO DAILY #30 ect 01/04/18 hydrOXYzine HCl [Atarax] 25 mg PO HS PRN #14 tab 01/04/18 Erythromycin [Erythocin] 250 mg PO Q6 #40 tab 01/13/18 Mirtazapine [Remeron] 15 mg PO HS #14 tab 01/13/18 cloNIDine 0.1 mg/24 hr [catapres 1 patch TD Q7D #4 patch 01/13/18 TTS1 0.1 mg/24 hr] Lorazepam [Ativan] 0.5 mg PO BID PRN #8 tab 01/16/18 Metoclopramide [Reglan] 10 mg PO Q6 PRN #12 tab 01/17/18 Metoclopramide [Reglan] 10 mg PO BID PRN 3 Days tab 01/19/18 - Allergies Allergies/Adverse Reactions: Allergies Allergy/AdvReac Type Severity Reaction Status Date / Time No Known Allergies Allergy Verified 01/16/18 21:57 Review of Systems ROS Statement: Except As Marked, All Systems Reviewed And Found Negative Physical Exam - Reviewed Nursing Documentation Reviewed: Yes Vital Signs Reviewed: Yes - Physical Exam Appears: Positive for: Well, Non-toxic, No Acute Distress Head Exam: Positive for: ATRAUMATIC, NORMAL INSPECTION, NORMOCEPHALIC Skin: Positive for: Normal Color, Warm, DRY Eye Exam: Positive for: EOMI, Normal appearance, PERRL ENT: Positive for: Normal ENT Inspection Neck: Positive for: Normal, Painless ROM Cardiovascular/Chest: Positive for: Regular Rate, Rhythm Respiratory: Positive for: CNT, Normal Breath Sounds Gastrointestinal/Abdominal: Positive for: Normal Exam, Soft. Negative for: Tenderness Back: Positive for: Normal Inspection. Negative for: L CVA Tenderness, R CVA Tenderness Extremity: Positive for: Normal ROM. Negative for: Tenderness Neurologic/Psych: Positive for: Alert, cryptographic center specialist II-XII, Oriented. Negative for: Motor/Sensory Deficits - ECG O2 Sat by Pulse Oximetry: 98 Pulse Ox Interpretation: Normal - Progress ED Course And Treament: 1432: Stable. AAOx3. Fu with pcp. Sugar level maintained. No seizures in ED. Fu with pcp. BP meds given that she takes at home. Ambulated with no issues. Disposition - Clinical Impression Clinical Impression: Hyperglycemia, Nausea & vomiting - Patient ED Disposition Is Patient to be Admitted: No Counseled Patient/Family Regarding: Studies Performed, Diagnosis, Need For Followup, Rx Given - Disposition Referrals: [facility] [Outside] - 01/20/18 Disposition: Routine/Home Disposition Time: 12:33 Condition: STABLE Additional Instructions: Return if not better in 3 days. Prescriptions: Metoclopramide [Reglan] 10 mg PO BID PRN 3 Days tab PRN Reason: Headache Instructions: Nausea and Vomiting, Adult, Blood Glucose Monitoring
[2018-01-19] MEDS ORDERED: Insulin Regular 100 units/ml SC STA ×2 (13:07)
[2018-01-19 15:38] VITALS: BP 136/76; PULSE 98; TEMP 98.8; O2SAT 100
--- NOTE | 2018-01-20 07:01 | CARD ---
APPROVED REPORT Date of service: 01/19/2018 EKG Measurement Heart [id number] <Conclusion> Normal sinus rhythm Normal ECG
== END 2018-01-19 15:30 | disposition home or self-care (01) ==
LOC: H.ER 10:40
DX: E11.22 Type 2 diabetes mellitus with diabetic chronic kidney disease (principal); E11.65 Type 2 diabetes mellitus with hyperglycemia; I12.9 Hypertensive chronic kidney disease with stage 1 through stage 4 chronic kidney disease, or unspecified chronic kidney disease; N18.9 Chronic kidney disease, unspecified; Z79.4 Long term (current) use of insulin; Z79.899 Other long term (current) drug therapy
CPT/HCPCS: 82948; 93005; 96372; 99285; J2765

== ENCOUNTER 2018-01-25 23:53 | Emergency (ER) | payer MEDICAID ==
[2018-01-25 23:56] VITALS: BMI 26.4
[2018-01-26 00:04] VITALS: TEMP 97.9
--- NOTE | 2018-01-26 00:12 | ED PDOC ---
HPI: Altered Mental Status Time Seen by Provider: 01/25/18 23:58 Chief Complaint (Nursing): Altered Mental Status Chief Complaint (Provider): Altered Mental Status History Per: Patient History/Exam Limitations: Clinical Condition Onset Of Symptoms: <4.5 Hours (20:30) Additional Complaint(s): 27 y/o female with PMHx of diabetes, HTN, seizure disorder, and renal insufficiency but not on hemodialysis, presents to the ED for altered mental status. Per mother, patient was at her friends house and mother states patient's friend told her that patient started shaking all over. When mother arrived, around 20:30 patient was semi-conscious, tremorous and drooling. Mother states she was able to bring her home but at home patient never really became alert or oriented and continued to have tremors and abnormal speech prompting mother to call ambulance. Mother is unsure whether patient is compliant with medication. Unable to get complete history due to patient's clinical condition. Past Medical History Reviewed: Historical Data, Nursing Documentation, Vital Signs Vital Signs: Last Vital Signs Temp 97.9 F 01/25/18 23:57 Pulse 118 H 01/25/18 23:57 Resp 18 01/25/18 23:57 BP 183/115 H 01/25/18 23:57 Pulse Ox 100 01/25/18 23:57 - Medical History PMH: Anemia, Bronchitis, Diabetes (Type I), HTN, Chronic Kidney Disease, 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) Denies: HIV - Family History Family History: States: Unknown Family Hx - Immunization History Hx Tetanus Toxoid Vaccination: No (Not sure of last date) Hx Influenza Vaccination: Yes Hx Pneumococcal Vaccination: Yes - Home Medications Home Medications: Ambulatory Orders Medication Instructions Recorded RX: Insulin Lispro [humALOG] 8 unit SC ACTID 11/04/17 RX: Liraglutide [Victoza 2-Ángel] 0.6 mg SC DAILY 11/04/17 RX: amLODIPine [Norvasc] 5 mg PO DAILY 11/04/17 RX: Insulin Glargine,Hum.rec.anlog 13 unit SC HS 12/22/17 [Basaglar Kwikpen U-100] RX: Calcitriol [Rocaltrol] 0.25 mcg PO MWF #15 sgl 01/04/18 RX: Ergocalciferol [Drisdol 50,000 1 cap PO Q7D #8 cap 01/04/18 Intl Units Cap] RX: Ondansetron ODT [Zofran ODT] 4 mg PO Q8H PRN #20 odt 01/04/18 RX: Pantoprazole [Protonix EC Tab] 40 mg PO DAILY #30 ect 01/04/18 RX: hydrOXYzine HCl [Atarax] 25 mg PO HS PRN #14 tab 01/04/18 RX: Erythromycin [Erythocin] 250 mg PO Q6 #40 tab 01/13/18 RX: Mirtazapine [Remeron] 15 mg PO HS #14 tab 01/13/18 RX: cloNIDine 0.1 mg/24 hr 1 patch TD Q7D #4 patch 01/13/18 [catapres TTS1 0.1 mg/24 hr] RX: Lorazepam [Ativan] 0.5 mg PO BID PRN #8 tab 01/16/18 Metoclopramide [Reglan] 10 mg PO Q6 PRN #12 tab 01/17/18 Metoclopramide [Reglan] 10 mg PO BID PRN 3 Days tab 01/19/18 - Allergies Allergies/Adverse Reactions: Allergies Allergy/AdvReac Type Severity Reaction Status Date / Time No Known Allergies Allergy Verified 01/25/18 23:57 Review of Systems Review Of Systems: ROS cannot be obtained secondary to pt's inabilty to answer questions. Physical Exam - Reviewed Nursing Documentation Reviewed: Yes Vital Signs Reviewed: Yes - Physical Exam Appears: Positive for: In Acute Distress (Acute Neurologic Distress) Head Exam: Positive for: ATRAUMATIC, NORMOCEPHALIC Skin: Positive for: Warm, Dry Eye Exam: Positive for: EOMI, PERRL ENT: Positive for: Pharynx Is (clear) Neck: Positive for: Painless ROM, Supple Cardiovascular/Chest: Positive for: Regular Rate, Rhythm. Negative for: Murmur Respiratory: Positive for: Normal Breath Sounds. Negative for: Respiratory Distress Gastrointestinal/Abdominal: Positive for: Soft. Negative for: Tenderness Back: Positive for: Normal Inspection. Negative for: Decreased ROM Extremity: Positive for: Normal ROM. Negative for: Deformity Lymphatic: Negative for: Adenopathy Neurologic/Psych: Positive for: Alert, Oriented, Other (Diffusely tremorous). Negative for: Motor/Sensory Deficits, Aphasia (speech is slow but appropriate; patient is answering yes or no questions) - Laboratory Results Result Diagrams: 01/26/18 01:45 01/26/18 01:45 - ECG O2 Sat by Pulse Oximetry: 100 (RA) Pulse Ox Interpretation: Normal Medical Decision Making Medical Decision Making: Time: 23:59 Initial Impression: AMS Differential included but not limited to seizures, electrolyte abnormality, dehydration, alcohol or drug intoxication, metabolic encephalopathy, intracranial hemorrhage Initial Plan: * Type and Screen * CT Head * EKG * Alcohol serum * CMP * Creatinine * Drug Screen * HCG * Lactic Acid * Magnesium * Phosphorous * Troponin * ED Urine * CBC w/ diff * PTT * Prothrombin time Reviewed previous chart. 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 Ddx also include these. 1215am Patient care endorsed to Dr. Quach pending workup, reassessment and final disposition. Scribe Attestation: Documented by Arian Babb acting as a scribe for Melissa Spencer MD. Provider Scribe Attestation: All medical record entries made by the Scribe were at my direction and personally dictated by me. I have reviewed the chart and agree that the record accurately reflects my personal performance of the history, physical exam, medical decision making, and the department course for this patient. I have also personally directed, reviewed, and agree with the discharge instructions and disposition. Disposition - Clinical Impression Clinical Impression: Gastroparesis - Disposition Disposition: Transfer of Care Disposition Time: 00:15 Condition: STABLE Instructions: Gastroparesis (Delayed Gastric Emptying)
--- NOTE | 2018-01-26 00:19 | ED PDOC ---
- ECG O2 Sat by Pulse Oximetry: 100 (RA) Pulse Ox Interpretation: Normal Medical Decision Making Medical Decision Making: Time: 00:00 Patient care endorsed from Dr. Spencer to provider pending workup, reassessment, and final disposition. Scribe Attestation: Documented by Arian Babb acting as a scribe for Declan Quach MD. Provider Scribe Attestation: All medical record entries made by the Scribe were at my direction and personally dictated by me. I have reviewed the chart and agree that the record accurately reflects my personal performance of the history, physical exam, medical decision making, and the department course for this patient. I have also personally directed, reviewed, and agree with the discharge instructions and disposition Disposition - Disposition Forms: [facility] (Panamanian)
--- NOTE | 2018-01-26 00:20 | ED PDOC ---
- Laboratory Results Result Diagrams: 01/26/18 01:45 01/26/18 01:45 - ECG O2 Sat by Pulse Oximetry: 100 (RA) Pulse Ox Interpretation: Normal Medical Decision Making Medical Decision Making: Time: 00:00 Patient care endorsed from Dr. Spencer to provider pending workup, reassessment, and final disposition. 01:32 CT Head Normal size of the ventricles and extra-axial spaces for the patient's age. Normal white matter tracts of the supratentorial brain. Normal basal ganglia and thalami. Normal brainstem. Normal cerebellum. There is no demonstrated extra-axial, intraparenchymal, or intraventricular hemorrhage. There are no findings of an acute ischemic infarction. Normal calvarium. There is no demonstrated fracture. Normal soft tissue structures. Mild chronic inflammatory changes of the maxillary sinuses. Normal remaining visualized paranasal sinuses. IMPRESSION: Normal unenhanced CT scan of the brain. Mild chronic mucosal inflammatory changes of the maxillary sinuses 04:36 Labs reviewed no clinically significant abnormalities. BUN and creatinine are chronically elevated for this patient. Patient is resting comfortably and is stable for discharge. Diagnosis is chronic abdominal pain, gastroparesis, chronic renal failure. Patient is encouraged to follow up with auto glass technician as well as her PMD. Scribe Attestation: Documented by Arian Babb acting as a scribe for Declan Quach MD. Provider Scribe Attestation: All medical record entries made by the Scribe were at my direction and personally dictated by me. I have reviewed the chart and agree that the record accurately reflects my personal performance of the history, physical exam, medical decision making, and the department course for this patient. I have also personally directed, reviewed, and agree with the discharge instructions and disposition Disposition - Clinical Impression Clinical Impression: Gastroparesis - POA Present On Arrival: None - Disposition Disposition: Routine/Home Disposition Time: 04:36 Condition: STABLE Additional Instructions: ELOY ROBLEDO, thank you for letting us take care of you today. Your provider was Declan Quach MD and you were treated for STROKE. The emergency medical care you received today was directed at your acute symptoms. If you were prescribed any medication, please fill it and take as directed. It may take s everal days for your symptoms to resolve. Return to the Emergency Department if your symptoms worsen, do not improve, or if you have any other problems. Please contact your doctor or call one of the physicians/clinics you have been referred to that are listed on the Patient Visit Information form that is included in your discharge packet. Bring any paperwork you were given at discharge with you along with any medications you are taking to your follow up visit. Our treatment cannot replace ongoing medical care by a primary care provider outside of the emergency department. Thank you for allowing the [facility] team to be part of your care today. If you had an X-Ray or CT scan: A Radiologist will review the ED reading if any change in treatment is needed we will contact you. If you had a blood, urine, or wound culture: It will take several days for the results, if any change in treatment is needed we will contact you. If you had an STI test: It will take 48 hours for the results. Please call after 1 week if you have not heard back. Instructions: Gastroparesis (Delayed Gastric Emptying) Forms: [employer] (Estonian)
[2018-01-26 01:37] LABS: ABG ALLEN TEST YES; ARTERIAL BLOOD GAS HCO3 24.4 mmol/L (21-28); ARTERIAL BLOOD GAS O2 SAT 98.2 % (95-98); ARTERIAL BLOOD GAS PCO2 40 mm/Hg (35-45); ARTERIAL BLOOD GAS PH 7.39 (7.35-7.45); ARTERIAL BLOOD GAS PO2 88 mm/Hg (80-100); ARTERIAL BLOOD GAS TCO2 25.4 mmol/L (22-28)
[2018-01-26 01:49] LABS: BASO # 0.1 K/uL (0.0-0.2); BASO % 0.9 % (0.0-2.0); EOS % 0.1 % (0.0-4.0); HEMOGLOBIN 9.3 g/dL (12.0-16.0); LYMPH # 1.2 K/uL (1.0-4.3); LYMPH % 10.8 % (20.0-40.0); MEAN CELL VOLUME 86.8 fl (81.0-99.0); MEAN CORPUSCULAR HEMOGLOBIN 28.2 pg (27.0-31.0); MEAN CORPUSCULAR HGB CONC 32.5 g/dL (33.0-37.0); MEAN PLATELET VOLUME 9.4 fl (7.2-11.7); MONO # 0.4 K/uL (0.0-0.8); MONO % 3.2 % (0.0-10.0); NEUT # 9.9 K/uL (1.8-7.0); RBC 3.28 Mil/uL (3.80-5.20); RED CELL DISTRIBUTION WIDTH 14.8 % (11.5-14.5); WHITE BLOOD COUNT 11.6 K/uL (4.8-10.8)
[2018-01-26 01:50] LABS: BARBITURATES, UR NEGATIVE (NEGATIVE); BENZODIAZEPINES, UR NEGATIVE (NEGATIVE); OPIATES, UR NEGATIVE (NEGATIVE); PHENCYCLIDINE, UR NEGATIVE (NEGATIVE)
[2018-01-26 02:13] LABS: ALBUMIN 3.4 g/dL (3.5-5.0); CALCIUM 9.1 mg/dL (8.4-10.2)
[2018-01-26 02:50] VITALS: PULSE 90
[2018-01-26 03:11] VITALS: O2SAT 100
[2018-01-26 05:04] VITALS: BP 102/63; RESP 13
--- NOTE | 2018-01-26 06:09 | CARD ---
APPROVED REPORT Date of service: 01/26/2018 EKG Measurement Heart [id number] <Conclusion> Sinus tachycardia Otherwise normal ECG
--- NOTE | 2018-01-26 08:48 | CT ---
Date of service: 01/26/2018 PROCEDURE: CT HEAD WITHOUT CONTRAST. HISTORY: seizure headache confusion COMPARISON: Comparison is made with 12/22/2017 TECHNIQUE: Axial computed tomography images were obtained through the head/brain without intravenous contrast. Radiation dose: Total exam DLP = 984.98 mGy-cm. This CT exam was performed using one or more of the following dose reduction techniques: Automated exposure control, adjustment of the mA and/or kV according to patient size, and/or use of iterative reconstruction technique. FINDINGS: HEMORRHAGE: No intracranial hemorrhage. BRAIN: No mass effect or edema. Mild volume loss is noted. VENTRICLES: Unremarkable. No hydrocephalus. CALVARIUM: Unremarkable. PARANASAL SINUSES: Small bilateral maxillary sinuses mucosal retention cyst are again noted. MASTOID AIR CELLS: Unremarkable as visualized. No inflammatory changes. OTHER FINDINGS: None. IMPRESSION: No evidence of acute intracranial hemorrhage mass effect or midline shift. Preliminary report was submitted by [facility].
== END 2018-01-26 05:02 | disposition home or self-care (01) ==
LOC: H.ER 23:53
DX: K31.84 Gastroparesis (principal); E11.22 Type 2 diabetes mellitus with diabetic chronic kidney disease; E11.43 Type 2 diabetes mellitus with diabetic autonomic (poly)neuropathy; F44.5 Conversion disorder with seizures or convulsions; G89.29 Other chronic pain; Z76.5 Malingerer [conscious simulation]; Z79.4 Long term (current) use of insulin; Z99.2 Dependence on renal dialysis; I12.9 Hypertensive chronic kidney disease with stage 1 through stage 4 chronic kidney disease, or unspecified chronic kidney disease
CPT/HCPCS: 70450; 80053; 80324; 80345; 80346; 80349; 80353; 80358; 80361; 81025; 82803; 82948; 83690; 83992; 85025; 93005; 96372; 99285; J1630; J2060; J2405

== ENCOUNTER 2018-01-28 08:28 | Emergency (ER) | payer MEDICAID ==
[2018-01-28 08:29] VITALS: BMI 26.4
[2018-01-28 08:42] VITALS: TEMP 97.6
[2018-01-28 10:19] LABS: ALB/GLOB RATIO 1.1 (1.0-2.1); ALBUMIN 3.5 g/dL (3.5-5.0); ALT/SGPT 26 U/L (9-52); AST/SGOT 26 U/L (14-36); BLOOD UREA NITROGEN 34 mg/dl (7-17); CALCIUM 8.7 mg/dL (8.4-10.2); GFR NON-AFRICAN AMERICAN 11
[2018-01-28 10:24] LABS: BASO # 0.1 K/uL (0.0-0.2); BASO % 0.5 % (0.0-2.0); EOS # 0.1 K/uL (0.0-0.7); EOS % 0.3 % (0.0-4.0); HEMOGLOBIN 10.7 g/dL (12.0-16.0); LYMPH # 1.6 K/uL (1.0-4.3); LYMPH % 8.5 % (20.0-40.0); MEAN CORPUSCULAR HEMOGLOBIN 27.9 pg (27.0-31.0); MEAN PLATELET VOLUME 10.1 fl (7.2-11.7); MONO # 0.7 K/uL (0.0-0.8); MONO % 3.5 % (0.0-10.0); NEUT % 87.2 % (50.0-75.0); NRBC % 0.2 % (0.0-0.0); PLATELET COUNT 387 K/uL (130-400); RBC 3.82 Mil/uL (3.80-5.20); RED CELL DISTRIBUTION WIDTH 15.1 % (11.5-14.5); WHITE BLOOD COUNT 19.5 K/uL (4.8-10.8)
--- NOTE | 2018-01-28 10:46 | ED PDOC ---
HPI: General Adult Time Seen by Provider: 01/28/18 08:35 Chief Complaint (Nursing): Altered Mental Status Chief Complaint (Provider): vomiting, low blood sugar History Per: Patient, EMS, Family History/Exam Limitations: no limitations Current Symptoms Are (Timing): Better Severity: Moderate Recently: Seen In ED Additional Complaint(s): 27yo female presents via EMS per mother found to have hypoglycemia this morning, on insulin pump, EMS called found accucheck 67 given glucagon 2mg IM, arrival to ED awake and alert but nausea/vomiting, accucheck 183, prior visits reviewed, recent frequent ED visits with pseudoseizures and vomiting. Difficult IV access. Past Medical History Reviewed: Historical Data, Nursing Documentation, Vital Signs Vital Signs: Last Vital Signs Temp 97.6 F 01/28/18 08:38 Pulse 108 H 01/28/18 08:38 Resp 16 01/28/18 08:38 BP 185/117 H 01/28/18 08:38 Pulse Ox 99 01/28/18 08:38 - Medical History PMH: Anemia, Bronchitis, Diabetes (Type I), HTN, Chronic Kidney Disease, 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) Denies: HIV - Family History Family History: States: Unknown Family Hx - Living Arrangements Living Arrangements: With Family - Social History Current smoker - smoking cessation education provided: No - Immunization History Hx Tetanus Toxoid Vaccination: No (Not sure of last date) Hx Influenza Vaccination: Yes Hx Pneumococcal Vaccination: Yes - Home Medications Home Medications: Ambulatory Orders Medication Instructions Recorded RX: Insulin Lispro [humALOG] 8 unit SC ACTID 11/04/17 RX: Liraglutide [Victoza 2-Ángel] 0.6 mg SC DAILY 11/04/17 RX: amLODIPine [Norvasc] 5 mg PO DAILY 11/04/17 RX: Insulin Glargine,Hum.rec.anlog 13 unit SC HS 12/22/17 [Basaglar Kwikpen U-100] RX: Calcitriol [Rocaltrol] 0.25 mcg PO MWF #15 sgl 01/04/18 RX: Ondansetron ODT [Zofran ODT] 4 mg PO Q8H PRN #20 odt 01/04/18 RX: Pantoprazole [Protonix EC Tab] 40 mg PO DAILY #30 ect 01/04/18 RX: hydrOXYzine HCl [Atarax] 25 mg PO HS PRN #14 tab 01/04/18 RX: Lorazepam [Ativan] 0.5 mg PO BID PRN #8 tab 01/16/18 Metoclopramide [Reglan] 10 mg PO BID PRN 3 Days tab 01/19/18 RX: Ergocalciferol [Drisdol 50,000 50,000 unit PO Q7D 01/28/18 Intl Units Cap] RX: Mirtazapine [Remeron] 7.5 mg PO HS 01/28/18 RX: Torsemide [Demadex] 5 mg PO DAILY 01/28/18 RX: cloNIDine 0.2 mg/24 hr 0.2 mg TD QWK 01/28/18 [catapres-TTS2 0.2 mg/24 hr] - Allergies Allergies/Adverse Reactions: Allergies Allergy/AdvReac Type Severity Reaction Status Date / Time No Known Allergies Allergy Verified 01/25/18 23:57 Review of Systems ROS Statement: Except As Marked, All Systems Reviewed And Found Negative Constitutional: Negative for: Fever Cardiovascular: Negative for: Chest Pain Gastrointestinal: Positive for: Nausea, Vomiting Genitourinary Female: Negative for: Dysuria Skin: Negative for: Rash, Lesions Neurological: Positive for: Altered Mental Status, Dizziness. Negative for: Weakness, Numbness Psych: Positive for: Anxiety Physical Exam - Reviewed Nursing Documentation Reviewed: Yes Vital Signs Reviewed: Yes - Physical Exam Appears: Positive for: Non-toxic (anxious) Head Exam: Positive for: ATRAUMATIC, NORMAL INSPECTION, NORMOCEPHALIC Skin: Positive for: Normal Color, Warm, DRY Eye Exam: Positive for: EOMI, Normal appearance, PERRL ENT: Positive for: Normal ENT Inspection Neck: Positive for: Normal, Painless ROM Cardiovascular/Chest: Positive for: Regular Rate, Rhythm Respiratory: Positive for: CNT, Normal Breath Sounds Pulses-Radial (L): 3+/4+ Pulses-Radial (R): 3+/4+ Gastrointestinal/Abdominal: Positive for: Soft. Negative for: Tenderness Back: Positive for: Normal Inspection Extremity: Positive for: Normal ROM, Swelling (mild anasarca) Neurologic/Psych: Positive for: Alert, Oriented. Negative for: Motor/Sensory Deficits - Laboratory Results Result Diagrams: 01/28/18 09:40 01/28/18 09:40 - ECG O2 Sat by Pulse Oximetry: 99 Medical Decision Making Medical Decision Making: labs obtained and zofran ODT ordered, unable to gain peripheral IV access despite multiple attempts Will give PO trial labs reviewed revealing hyperglycemia, on insulin pump WBC elevated Obtained IV access and given IVF bolus [facility] database query revealed only 2 Rx for ativan 0.5mg #8, she states she takes 2mg BID Re-eval patient diaphoretic and agitated, IV Ativan 1mg ordered Avoid NSAIDs because of renal function IV tylenol ordered CT abd pelv ordered endorse Dr Stubbs 3p Disposition - Clinical Impression Clinical Impression: Gastroparesis, Leukocytosis, Hypoglycemia - Patient ED Disposition Is Patient to be Admitted: Transfer of Care Counseled Patient/Family Regarding: Studies Performed - Disposition Disposition: Transfer of Care Disposition Time: 14:58 Condition: IMPROVED Additional Instructions: follow up with your primary doctor Dr Navarrete in 1-2 days return to the ED with any worsening or concerning symptoms Instructions: Gastroparesis (Delayed Gastric Emptying) Forms: [facility] [facility] (Kinyarwanda) Patient Signed Over To: Courtney Stubbs Handoff Comments: pending CT, CXR and re-eval
[2018-01-28] MEDS ORDERED: Sodium Chloride 0.9% 1,000 ML IV STA (11:49)
[2018-01-28 13:26] LABS: LYMPHOCYTE 10 % (20-50); MONOCYTE 4 % (0-10); NEUTROPHIL 86 % (42-75); PLATELET ESTIMATE NORMAL (NORMAL); TOTAL CELLS COUNTED 100
[2018-01-28 13:27] LABS: ANISOCYTOSIS SLIGHT; HYPOCHROMIC SLIGHT; OVALOCYTES SLIGHT; SCHISTOCYTES SLIGHT; TEARDROP CELLS SLIGHT
--- NOTE | 2018-01-28 16:35 | ED PDOC ---
- Laboratory Results Result Diagrams: 01/28/18 09:40 01/28/18 09:40 - ECG O2 Sat by Pulse Oximetry: 99 (RA) Pulse Ox Interpretation: Normal Medical Decision Making Medical Decision Making: Time: [address] Torrez, pending abdomen/pelvis CT. 1611 Abdomen/ Pelvis CT FINDINGS: LOWER THORAX: Old healed right rib fracture reiterated anteriorly. Moderate size hiatal hernia evident once again. LIVER: Unremarkable. No gross lesion or ductal dilatation. GALLBLADDER AND BILE DUCTS: Unremarkable. PANCREAS: Unremarkable. No gross lesion or ductal dilatation. SPLEEN: Unremarkable. ADRENALS: Unremarkable. No mass. KIDNEYS AND URETERS: Unremarkable. No hydronephrosis. No solid mass. VASCULATURE: Unremarkable. No aortic aneurysm. No aortic atherosclerotic calcification or mural plaque present. BOWEL: Evaluation of the gastrointestinal tract is limited due to the lack of oral contrast administration. Stomach appears largely decompressed with hiatal hernia as discussed above. Nonobstructive bowel gas pattern. Limited retained fecal material scattered throughout various large-bowel segments. No definite suspicious bowel findings. APPENDIX: Unremarkable. Normal appendix. PERITONEUM: Unremarkable. No free fluid. No free air. LYMPH NODES: Unremarkable. No enlarged lymph nodes. BLADDER: Urinary bladder is partially decompressed with mural thickening not excluded. Consider potential cystitis. REPRODUCTIVE: Unremarkable. BONES: No acute fracture. OTHER FINDINGS: None. IMPRESSION: No radiodense urolithiasis, perinephric fluid collection or obstructive uropathy is appreciate bilaterally. The bilateral ureters appear normal caliber overall. No bowel obstruction, measure edema, ascites or free gas. Potential cystitis as discussed above. Urinary bladder wall limited in evaluation due to decompressed state. Moderate hiatal hernia again evident. 170 CT reviewed and shows no significant abnormality. Her last accucheck was 217. 1715 Will give PO trial and discharge patient. Scribe Attestation: Documented by Adelaide Carmichael, acting as a scribe for Courtney Stubbs MD. Provider Scribe Attestation: All medical record entries made by the Scribe were at my direction and personally dictated by me. I have reviewed the chart and agree that the record accurately reflects my personal performance of the history, physical exam, medical decision making, and the department course for this patient. I have also personally directed, reviewed, and agree with the discharge instructions and disposition. Disposition - Clinical Impression Clinical Impression: Gastroparesis, Leukocytosis, Hypoglycemia - Disposition Forms: [employer] (Swedish)
--- NOTE | 2018-01-28 16:38 | CT ---
Date of service: 01/28/2018 PROCEDURE: CT Abdomen and Pelvis without intravenous contrast HISTORY: upper abd pain vomiting diaphoresis COMPARISON: Noncontrast abdomen CT 01/16/2018. TECHNIQUE: Helical CT of the abdomen and pelvis was performed without oral or intravenous contrast as per referring physician request. Coronal and sagittal reformats were generated. Contrast dose: Radiation dose: Total exam DLP = 404.21 mGy-cm. This CT exam was performed using one or more of the following dose reduction techniques: Automated exposure control, adjustment of the mA and/or kV according to patient size, and/or use of iterative reconstruction technique. FINDINGS: LOWER THORAX: Old healed right rib fracture reiterated anteriorly. Moderate size hiatal hernia evident once again. LIVER: Unremarkable. No gross lesion or ductal dilatation. GALLBLADDER AND BILE DUCTS: Unremarkable. PANCREAS: Unremarkable. No gross lesion or ductal dilatation. SPLEEN: Unremarkable. ADRENALS: Unremarkable. No mass. KIDNEYS AND URETERS: Unremarkable. No hydronephrosis. No solid mass. VASCULATURE: Unremarkable. No aortic aneurysm. No aortic atherosclerotic calcification or mural plaque present. BOWEL: Evaluation of the gastrointestinal tract is limited due to the lack of oral contrast administration. Stomach appears largely decompressed with hiatal hernia as discussed above. Nonobstructive bowel gas pattern. Limited retained fecal material scattered throughout various large-bowel segments. No definite suspicious bowel findings. APPENDIX: Unremarkable. Normal appendix. PERITONEUM: Unremarkable. No free fluid. No free air. LYMPH NODES: Unremarkable. No enlarged lymph nodes. BLADDER: Urinary bladder is partially decompressed with mural thickening not excluded. Consider potential cystitis. REPRODUCTIVE: Unremarkable. BONES: No acute fracture. OTHER FINDINGS: None. IMPRESSION: No radiodense urolithiasis, perinephric fluid collection or obstructive uropathy is appreciate bilaterally. The bilateral ureters appear normal caliber overall. No bowel obstruction, measure edema, ascites or free gas. Potential cystitis as discussed above. Urinary bladder wall limited in evaluation due to decompressed state. Moderate hiatal hernia again evident.
--- NOTE | 2018-01-28 16:38 | RAD ---
Date of service: 01/28/2018 HISTORY: AMS COMPARISON: 01/10/2018 FINDINGS: LUNGS: No active pulmonary disease. PLEURA: No significant pleural effusion identified, no pneumothorax apparent. CARDIOVASCULAR: No atherosclerotic calcification present Normal. OSSEOUS STRUCTURES: No significant abnormalities. VISUALIZED UPPER ABDOMEN: Normal. OTHER FINDINGS: None. IMPRESSION: No active disease.
[2018-01-28 17:58] VITALS: RESP 18
[2018-01-28 18:03] VITALS: BP 146/96; PULSE 96
[2018-01-28 18:03] LABS: SQUAMOUS EPITHIAL 7 /hpf (0-5); URINE BACTERIA MOD (<OCC); URINE BILIRUBIN NEGATIVE (NEGATIVE); URINE BLOOD NEGATIVE (NEGATIVE); URINE CLARITY SLIGHTY-CLOUDY (Clear); URINE COLOR YELLOW (YELLOW); URINE GLUCOSE (UA) >=500 mg/dL (NEGATIVE); URINE LEUKOCYTE ESTERASE NEG Leu/uL (Negative); URINE PROTEIN >=500 mg/dL (NEGATIVE); URINE UROBILINOGEN 0.2-1.0 mg/dL (0.2-1.0)
--- NOTE | 2018-01-29 00:13 | CARD ---
APPROVED REPORT Date of service: 01/28/2018 EKG Measurement Heart [id number] <Conclusion> Sinus tachycardia Otherwise normal ECG
[2018-01-29 08:25] VITALS: O2SAT 99
== END 2018-01-28 18:00 | disposition home or self-care (01) ==
LOC: H.ER 08:28
DX: E11.65 Type 2 diabetes mellitus with hyperglycemia (principal); K31.84 Gastroparesis; D72.829 Elevated white blood cell count, unspecified; Z79.4 Long term (current) use of insulin; I12.9 Hypertensive chronic kidney disease with stage 1 through stage 4 chronic kidney disease, or unspecified chronic kidney disease; K44.9 Diaphragmatic hernia without obstruction or gangrene
CPT/HCPCS: 71045; 74176; 80053; 80320; 81003; 81025; 82948; 84484; 85025; 93005; 96361; 96374; 96375; 96376; 99285; J0131; J2060; J2405; J2765; J7030

== ENCOUNTER 2018-02-03 20:51 | Emergency (ER) | payer MEDICAID ==
[2018-02-03 20:51] VITALS: BMI 26.4
[2018-02-03 21:05] VITALS: TEMP 98.1
[2018-02-03] MEDS ORDERED: DiphenhydrAMINE 50 mg/ml Inj IM STA (22:08)
--- NOTE | 2018-02-03 22:09 | ED PDOC ---
HPI: Abdomen Time Seen by Provider: 02/03/18 20:58 Chief Complaint (Nursing): GI Problem Chief Complaint (Provider): GI Problem History Per: Patient History/Exam Limitations: no limitations Additional Complaint(s): Vi Motley is a 27 year old female with a past medical history of anemia and HTN who presents to the emergency room with frequent visits due to vomiting and abdominal pain and pseudo seizure. Patient was seen doing a pseudo seizure without postictal state and with control of all extremities. Patient was immediately requesting Ativan. Patient states he was complaining of anxiety and hypertension and stated her finger sticks was between 80-120. When at home, patient began screaming at home and wanted to go to the hospital. As per EMS, patient was hypertensive when she was picked up. Patient is alert and orient now but is complaining of abdominal pain and vomiting. Provider discussed with mother and patient and told patient that she will not get morphine today. Mother stated she scheduled a psychiatric evaluation for tomorrow and that the patient has been getting Ativan more and more frequently through hospital visits. PMD: Norris Camacho Jr. Past Medical History Reviewed: Historical Data, Nursing Documentation, Vital Signs Vital Signs: Last Vital Signs Temp 98.1 F 02/03/18 21:01 Pulse 108 H 02/03/18 21:01 Resp 16 02/03/18 21:01 BP 176/94 H 02/03/18 21:01 Pulse Ox 100 02/03/18 21:01 - Medical History PMH: Anemia, Bronchitis, Diabetes (Type I), HTN, Chronic Kidney Disease, 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) Denies: HIV - Surgical History Surgical History: No Surg Hx - Family History Family History: States: Unknown Family Hx - Immunization History Hx Tetanus Toxoid Vaccination: No (Not sure of last date) Hx Influenza Vaccination: Yes Hx Pneumococcal Vaccination: Yes - Home Medications Home Medications: Ambulatory Orders Medication Instructions Recorded RX: Insulin Lispro [humALOG] 8 unit SC ACTID 11/04/17 RX: Liraglutide [Victoza 2-Ángel] 0.6 mg SC DAILY 11/04/17 RX: amLODIPine [Norvasc] 5 mg PO DAILY 11/04/17 RX: Insulin Glargine,Hum.rec.anlog 13 unit SC HS 12/22/17 [Basaglar Kwikpen U-100] RX: Calcitriol [Rocaltrol] 0.25 mcg PO MWF #15 sgl 01/04/18 RX: Ondansetron ODT [Zofran ODT] 4 mg PO Q8H PRN #20 odt 01/04/18 RX: Pantoprazole [Protonix EC Tab] 40 mg PO DAILY #30 ect 01/04/18 RX: hydrOXYzine HCl [Atarax] 25 mg PO HS PRN #14 tab 01/04/18 RX: Lorazepam [Ativan] 0.5 mg PO BID PRN #8 tab 01/16/18 Metoclopramide [Reglan] 10 mg PO BID PRN 3 Days tab 01/19/18 RX: Ergocalciferol [Drisdol 50,000 50,000 unit PO Q7D 01/28/18 Intl Units Cap] RX: Mirtazapine [Remeron] 7.5 mg PO HS 01/28/18 RX: Torsemide [Demadex] 5 mg PO DAILY 01/28/18 RX: cloNIDine 0.2 mg/24 hr 0.2 mg TD QWK 01/28/18 [catapres-TTS2 0.2 mg/24 hr] - Allergies Allergies/Adverse Reactions: Allergies Allergy/AdvReac Type Severity Reaction Status Date / Time No Known Allergies Allergy Verified 01/25/18 23:57 Review of Systems Neurological: Positive for: Other (pseudo seizure) Psych: Positive for: Anxiety Physical Exam - Reviewed Nursing Documentation Reviewed: Yes Vital Signs Reviewed: Yes - Physical Exam Appears: Positive for: In Acute Distress (screaming when RN or provider in room/ easily calmed when she is told she will get medication) Head Exam: Positive for: ATRAUMATIC, NORMOCEPHALIC Skin: Positive for: Diaphoresis ENT: Positive for: Other (frequent vomiting when being evaluated by provider ) Cardiovascular/Chest: Positive for: Regular Rate, Rhythm, Murmur Respiratory: Positive for: Normal Breath Sounds. Negative for: Respiratory Distress Gastrointestinal/Abdominal: Positive for: Normal Exam, Soft. Negative for: Tenderness Extremity: Positive for: Normal ROM Neurologic/Psych: Positive for: Alert - Laboratory Results Result Diagrams: 02/04/18 05:15 02/04/18 05:15 - ECG O2 Sat by Pulse Oximetry: 100 (RA) Pulse Ox Interpretation: Normal Medical Decision Making Medical Decision Making: Time: 2119 A/P: * Patient with frequent visits for gastricparesis and vomiting. Patient is requesting morphine and ativan. * Possible benzo withdrawal with diaphoresis and hypertension. * Provider is unable to obtain IV line at this point. * Will give IM Reglan and haldol. * Will give Clonidine for HTN * Will only give Ativan if symptoms do not improve. * Provider discussed with mother and patient regarding conservative treatment to prevent overmedication and perpetuating the dependance on narcotics and benzos. Plan: --Bmp --Cbc with differential --Glucose --Clonidine 0.1 mg PO --Haldol 2mg IVP x2 --Reglan 10 mg IVP x2 2220 * Patient was seen standing off the stretcher and sitting on the floor when mother was out of the room, claiming she fell out of bed. * Provider further discusses signs of addictive behavior with patient and mother and admits that she has a Rx for Ativan that she ran out of today. * Further states she was in ED x1 week ago for similar symptoms. * She was told that she will not be given Ativan and will be given phenobarbital for withdrawal. * Arterial stick was done for basic labs. * Patient was given PO clonidine but refused it because she was gonna vomit. Patient then made herself vomit. * Provider will follow up with labs and continue to observe patient. 3:35am Pt receiving 3rd liter of fluids through peripheral IV line placed in the left foot. Has been given Ativan and Labetolol (10mg) with mild improvement in hypertension and tachycardia. Pt has not vomited since receiving Ativan. Will given another dose of Labetolol 10mg. Pt sleeping now. Will re-assess pt after 3rd liter of fluid has been given. Will send additional labs/admit if vitals not improved after 3rd liter. 6:27am Pt has received 4 L of IV fluids and a total of 4mg of Ativan. Pt not tolerating PO, well appearing, no longer diaphoretic, and BP improved. Pt with repeat labs showing glucose in the 300s. Will give an additional 4u of Insulin. Pt advised to not drink juice, only water at this time. Will monitor heart rate with additional insulin. 6:45 AM Pt with tolerating PO. HR improved to 105. Pt following up with PMD this week and has appointment with psychiatrist today. Pt and mother further educated on addiction to narcotics and benzos. Return parameters discussed. Scribe Attestation: Documented by Reji Oakes , acting as a scribe for Jackie Chris MD. Provider Scribe Attestation: All medical record entries made by the Scribe were at my direction and personally dictated by me. I have reviewed the chart and agree that the record accurately reflects my personal performance of the history, physical exam, medical decision making, and the department course for this patient. I have also personally directed, reviewed, and agree with the discharge instructions and disposition. Disposition - Clinical Impression Clinical Impression: Gastroenteritis, Benzodiazepine dependence, Hyperglycemia - Patient ED Disposition Is Patient to be Admitted: No - Disposition Disposition: Routine/Home Disposition Time: 06:45 Condition: IMPROVED Additional Instructions: Follow up with primary doctor to discuss benzodiazepine addiction and withdrawal. Follow up with psychiatrist to discuss addiction and behavior modification for chronic pain. Increase PO hydration. Continue to take medications as prescribed by primary medical doctor. Instructions: Hyperglycemia, Adult (DC), Drug Abuse and Drug Addiction (DC), Gastritis (DC), Prescription Drug Abuse (DC) Forms: [employer] (Czech) Print Language: LATVIAN
[2018-02-03 22:26] LABS: BASO # 0.1 K/uL (0.0-0.2); BASO % 0.7 % (0.0-2.0); HEMOGLOBIN 11.6 g/dL (12.0-16.0); LYMPH # 0.9 K/uL (1.0-4.3); LYMPH % 7.1 % (20.0-40.0); MEAN CELL VOLUME 85.8 fl (81.0-99.0); MEAN CORPUSCULAR HEMOGLOBIN 28.1 pg (27.0-31.0); MEAN CORPUSCULAR HGB CONC 32.8 g/dL (33.0-37.0); MEAN PLATELET VOLUME 9.5 fl (7.2-11.7); MONO # 0.1 K/uL (0.0-0.8); MONO % 1.2 % (0.0-10.0); NEUT # 11.1 K/uL (1.8-7.0); PLATELET COUNT 365 K/uL (130-400); RBC 4.12 Mil/uL (3.80-5.20); RED CELL DISTRIBUTION WIDTH 14.8 % (11.5-14.5); WHITE BLOOD COUNT 12.2 K/uL (4.8-10.8)
[2018-02-03 22:35] LABS: CALCIUM 8.9 mg/dL (8.4-10.2)
[2018-02-03 23:31] LABS: BANDS 2 % (0-2); LYMPHOCYTE 9 % (20-50); MONOCYTE 3 % (0-10); NEUTROPHIL 86 % (42-75); PLATELET ESTIMATE NORMAL (NORMAL); TOTAL CELLS COUNTED 100
[2018-02-03 23:32] LABS: ANISOCYTOSIS SLIGHT; MICROCYTOSIS SLIGHT
[2018-02-04] MEDS ORDERED: Sodium Chloride 0.9% 1,000 ML IV STA ×4 (00:37→04:17)
[2018-02-04] MEDS ORDERED: Labetalol 5 mg/ml Inj 20ML IVP STA (02:05)
[2018-02-04] MEDS ORDERED: Labetalol 5mg/ml (4ml) ONE (02:08)
[2018-02-04] MEDS ORDERED: Labetalol 5mg/ml (4ml) IVP STA ×2 (02:12→03:30)
[2018-02-04] MEDS ORDERED: Insulin Regular 100 units/ml SC STA ×2 (04:32→06:27)
[2018-02-04] MEDS ORDERED: Insulin Regular 100 units/ml ONE (04:38)
[2018-02-04 05:18] LABS: BASO # 0.2 K/uL (0.0-0.2); BASO % 1.1 % (0.0-2.0); LYMPH # 0.6 K/uL (1.0-4.3); LYMPH % 4.3 % (20.0-40.0); MEAN CELL VOLUME 87.1 fl (81.0-99.0); MEAN CORPUSCULAR HEMOGLOBIN 28.2 pg (27.0-31.0); MEAN CORPUSCULAR HGB CONC 32.4 g/dL (33.0-37.0); MEAN PLATELET VOLUME 9.6 fl (7.2-11.7); MONO # 0.2 K/uL (0.0-0.8); MONO % 1.2 % (0.0-10.0); NEUT # 13.5 K/uL (1.8-7.0); NEUT % 93.4 % (50.0-75.0); PLATELET COUNT 299 K/uL (130-400); RBC 3.54 Mil/uL (3.80-5.20); RED CELL DISTRIBUTION WIDTH 14.8 % (11.5-14.5); WHITE BLOOD COUNT 14.5 K/uL (4.8-10.8)
[2018-02-04 05:19] LABS: BARBITURATES, UR NEGATIVE (NEGATIVE)
[2018-02-04 05:25] LABS: ABG ALLEN TEST YES; ARTERIAL BLOOD GAS HCO3 20.7 mmol/L (21-28); ARTERIAL BLOOD GAS O2 SAT 99.8 % (95-98); ARTERIAL BLOOD GAS PCO2 34 mm/Hg (35-45); ARTERIAL BLOOD GAS PH 7.36 (7.35-7.45); ARTERIAL BLOOD GAS PO2 96 mm/Hg (80-100); ARTERIAL BLOOD GAS TCO2 20.2 mmol/L (22-28)
[2018-02-04 05:26] LABS: CALCIUM 7.9 mg/dL (8.4-10.2)
[2018-02-04 05:26] LABS: BENZODIAZEPINES, UR NEGATIVE (NEGATIVE); OPIATES, UR NEGATIVE (NEGATIVE); PHENCYCLIDINE, UR NEGATIVE (NEGATIVE)
[2018-02-04 05:31] VITALS: BP 131/81; RESP 23; O2SAT 100
[2018-02-04 06:45] VITALS: PULSE 105
--- NOTE | 2018-02-04 09:29 | RAD ---
Date of service: 02/04/2018 HISTORY: upright/rule out free air COMPARISON: None available. FINDINGS: BOWEL: Normal abdominal bowel gas pattern. Examination limited to single upright view. Examination performed portably on stretcher. No free intraperitoneal air. No evidence of bowel obstruction. No hepatic or splenic enlargement. No masses or abnormal intra-abdominal calcifications BONES: Normal. OTHER FINDINGS: . IMPRESSION: Normal limited examination. No evidence of free air.
[2018-02-04 11:32] LABS: ANISOCYTOSIS SLIGHT; HYPOCHROMIC SLIGHT; LYMPHOCYTE 5 % (20-50); MONOCYTE 1 % (0-10); NEUTROPHIL 94 % (42-75); PLATELET ESTIMATE NORMAL (NORMAL); TOTAL CELLS COUNTED 100
== END 2018-02-04 07:03 | disposition home or self-care (01) ==
LOC: H.ER 20:51
DX: K52.9 Noninfective gastroenteritis and colitis, unspecified (principal); F13.20 Sedative, hypnotic or anxiolytic dependence, uncomplicated; E11.22 Type 2 diabetes mellitus with diabetic chronic kidney disease; E11.65 Type 2 diabetes mellitus with hyperglycemia; Z79.4 Long term (current) use of insulin; I12.9 Hypertensive chronic kidney disease with stage 1 through stage 4 chronic kidney disease, or unspecified chronic kidney disease; N18.9 Chronic kidney disease, unspecified
CPT/HCPCS: 36600; 74018; 80048; 80053; 80324; 80345; 80346; 80349; 80353; 80358; 80361; 81025; 82803; 82948; 83992; 85025; 96361; 96372; 96374; 96375; 96376; 99285; C9113; J1200; J1630; J2060; J2560; J2765; J7030

== ENCOUNTER 2018-03-15 10:03 | Day surgery (SDC) | payer MEDICAID ==
[2018-03-15 10:39] VITALS: BMI 28.3
--- NOTE | 2018-03-15 12:58 | CP.SDSHP ---
Same Day Surgery H & P - History Proposed Procedure: HD catheter placement Pre-Op Diagnosis: Renal failure - Allergies Allergies: Allergies No Known Allergies Allergy (Verified 03/15/18 10:39) - Physical Exam Vital Signs: Vital Signs 03/15/18 11:11 Temperature 98.8 F Pulse Rate 100 H Respiratory 20 Rate Blood Pressure 183/125 H O2 Sat by Pulse 99 Oximetry Mental Status: Alert & Oriented x3 Neuro: WNL Heart: WNL - Impression Impression: Pt with renal failure and left arm AVF referred for HD catheter. Plan right IJV HD catheter placement. Informed consent obtained. Pt. Evaluated Today:Candidate for Anesthesia & Procedure: Yes (ASA 3 Malampati 3) - Date & Time Date: 03/15/18 Time: 12:50 Short Stay Discharge - Short Stay Discharge Admitting Diagnosis/Reason for Visit: END STAGE RENAL DISEASE Disposition: HOME/ ROUTINE
[2018-03-15] MEDS ORDERED: Midazolam 2 MG/2 ML VIAL ONE (13:01)
[2018-03-15] MEDS ORDERED: Lidocaine 2% MPF (5 ml) Inj ONE (13:06)
[2018-03-15 13:18] VITALS: RESP 18
--- NOTE | 2018-03-15 13:31 | PCM.SURG1 ---
Surgeon's Initial Post Op Note - Surgeon's Notes Surgeon: Dilan Colbert MD Manufacturing Baker: NONE Type of Anesthesia: IV Sedation Pre-Operative Diagnosis: Renal failure Operative Findings: US showed patent right IJV Post-Operative Diagnosis: Renal failure Operation Performed: Tunneled HD catheter placement 19 cm via the right IJV, Specimen/Specimens Removed: NONE Estimated Blood Loss: EBL {In ML}: 4 Blood Products Given: N/A Drains Used: No Drains Post-Op Condition: Fair Date of Surgery/Procedure: 03/15/18 Time of Surgery/Procedure: 13:30
[2018-03-15] MEDS ORDERED: Morphine 5 MG/ML SYRINGE IM ONE (13:45)
[2018-03-15] MEDS ORDERED: Morphine 4 MG/ML VIAL ONE (13:51)
[2018-03-15] MEDS ORDERED: Morphine 4 MG/ML VIAL IM ONE (14:45)
[2018-03-15 17:02] LABS: HEPATITIS B SURFACE AG Negative (NEGATIVE)
[2018-03-15 17:07] LABS: HEPATITIS B CORE AB NEGATIVE (NEGATIVE)
[2018-03-15 17:19] LABS: HEPATITIS C ANTIBODY NEGATIVE (NEGATIVE)
[2018-03-15 17:34] VITALS: TEMP 98.4
[2018-03-15 17:37] VITALS: BP 156/98; PULSE 88; O2SAT 18
--- NOTE | 2018-03-16 10:51 | VASCULAR ---
PROCEDURE: Date of procedure: 03/15/2018 Procedure: 1. Placement of right IJ tunneled hemodialysis catheter, CPT 07621 Medications: 1 percent lidocaine, IV sedation and physiologic monitoring performed by the anesthesiologist. EBL: 5 cm Radiation:0.81mGy Fluoro time: 7.7 Seconds Images: 2 HISTORY: Renal failure requiring hemodialysis TECHNIQUE: Following informed consent and procedure time-out, the patient was placed supine on the interventional table and the skin was marked . A limited ultrasound patient's right neck showed a patent compressible right internal jugular vein. Under direct ultrasound guidance, the right internal jugular vein was accessed with micropuncture technique and a guidewire was advanced under fluoroscopic guidance into the superior vena cava. An image documenting ultrasound guidance for vascular access was permanently saved. A 19 centimeter cuff to tip hemodialysis catheter was then tunneled under the skin and hold the venotomy site. The venotomy was then serially dilated to accommodate the peel-away sheath. The hemodialysis catheter was then advanced through a peel-away sheath. The catheter is positioned with tip in the superior vena cava confirm with fluoroscopic image. The catheter was tested and has adequate blood flow for hemodialysis. The catheter was flushed and locked with heparin per specified amount. The catheter secured to the skin with a 0 silk suture. IMPRESSION: Placement of right tunneled hemodialysis 19 cm cuff-to-tip catheter The catheter tip is confirmed with spot radiograph and is in the superior vena cava. The catheter is functional and ready for use.
== END 2018-03-15 18:02 | disposition home or self-care (01) ==
LOC: H.OPSURG 10:03
PROVIDERS: ATTEND Internal Medicine Nephrology
DX: I12.0 Hypertensive chronic kidney disease with stage 5 chronic kidney disease or end stage renal disease (principal); N18.6 End stage renal disease
CPT/HCPCS: 36415; 36561; 82948; 86705; 86706; 86803; 87340; A4310; C1729; C1750; C1769; J2250; J2270; J3010

== ENCOUNTER 2018-03-16 14:53 | Emergency (ER) | payer MEDICAID ==
[2018-03-16 14:53] VITALS: BMI 28.3
[2018-03-16 14:57] VITALS: RESP 16; TEMP 98
[2018-03-16] MEDS ORDERED: Sodium Chloride 0.9% 1,000 ML IV SCH ×2 (15:45→17:00)
[2018-03-16] MEDS ORDERED: DiphenhydrAMINE 50 mg/ml Inj IVP STA (16:46)
[2018-03-16] MEDS ORDERED: DiphenhydrAMINE 50 mg/ml Inj ONE (17:11)
[2018-03-16] MEDS ORDERED: Sodium Chloride 0.9% 10 ML IV ONE (17:14)
[2018-03-16 18:44] LABS: BASO % 0.7 % (0.0-2.0); HEMOGLOBIN 9.9 g/dL (12.0-16.0); LYMPH # 0.5 K/uL (1.0-4.3); LYMPH % 10.1 % (20.0-40.0); MEAN CORPUSCULAR HGB CONC 32.2 g/dL (33.0-37.0); MEAN PLATELET VOLUME 9.6 fl (7.2-11.7); MONO # 0.6 K/uL (0.0-0.8); NEUT # 3.7 K/uL (1.8-7.0); NEUT % 75.2 % (50.0-75.0); NRBC % 0.1 % (0.0-0.0); RBC 3.51 Mil/uL (3.80-5.20); RED CELL DISTRIBUTION WIDTH 15.3 % (11.5-14.5); WHITE BLOOD COUNT 4.9 K/uL (4.8-10.8)
[2018-03-16 18:52] LABS: ALB/GLOB RATIO 0.9 (1.0-2.1); ALBUMIN 2.5 g/dL (3.5-5.0); ALT/SGPT 16 U/L (9-52); AST/SGOT 17 U/L (14-36); BLOOD UREA NITROGEN 11 mg/dl (7-17); CALCIUM 7.9 mg/dL (8.4-10.2); GFR NON-AFRICAN AMERICAN 16
[2018-03-16 18:58] LABS: LIPASE < 10 U/L (23-300)
--- NOTE | 2018-03-16 19:38 | ED PDOC ---
HPI:Nausea, Vomiting, Diarrhea <Alex Arrington - Last Filed: 03/17/18 15:57> Chief Complaint (Provider): Nausea and Vomiting History Per: Patient, Family History/Exam Limitations: no limitations Onset/Duration Of Symptoms: Days (>45 days) Current Symptoms Are (Timing): Intermittent Episodes Associated Symptoms: Nausea, Vomiting (Pt is an ESRD patient that began renal dialysis this morning; she presents afebrile but complaining of nausea and vomiting. The patient is also a chronic gastropareisis patient. ) <Jack Coyle - Last Filed: 03/18/18 13:18> Time Seen by Provider: 03/16/18 15:31 Chief Complaint (Nursing): Seizure Past Medical History Vital Signs: Last Vital Signs Temp 98.0 F 03/16/18 14:54 Pulse 89 03/16/18 21:04 Resp 16 03/16/18 14:54 BP 161/100 H 03/16/18 21:04 Pulse Ox 100 03/16/18 22:03 <Alex Arrington - Last Filed: 03/17/18 15:57> Reviewed: Historical Data, Nursing Documentation, Vital Signs Vital Signs: Last Vital Signs Temp 98.0 F 03/16/18 14:54 Pulse 101 H 03/16/18 14:54 Resp 16 03/16/18 14:54 BP 191/113 H 03/16/18 14:54 Pulse Ox 97 03/16/18 14:54 - Medical History PMH: Anemia, Bronchitis, Diabetes (Type I), HTN, Chronic Kidney Disease, 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) Denies: HIV - Family History Family History: States: Unknown Family Hx - Immunization History Hx Tetanus Toxoid Vaccination: No (Not sure of last date) Hx Influenza Vaccination: Yes Hx Pneumococcal Vaccination: Yes <Jack Coyle - Last Filed: 03/18/18 13:18> - Home Medications Home Medications: Ambulatory Orders Medication Instructions Recorded RX: Insulin Lispro [humALOG] 8 unit SC ACTID 11/04/17 RX: amLODIPine [Norvasc] 5 mg PO DAILY 11/04/17 RX: Insulin Glargine,Hum.rec.anlog 13 unit SC HS 12/22/17 [Basaglar Thuikpen U-100] RX: Calcitriol [Rocaltrol] 0.25 mcg PO MWF #15 sgl 01/04/18 RX: Ondansetron ODT [Zofran ODT] 4 mg PO Q8H PRN #20 odt 01/04/18 RX: Pantoprazole [Protonix EC Tab] 40 mg PO DAILY #30 ect 01/04/18 Metoclopramide [Reglan] 10 mg PO BID PRN 3 Days tab 01/19/18 RX: Ergocalciferol [Drisdol 50,000 50,000 unit PO Q7D 01/28/18 Intl Units Cap] RX: Torsemide [Demadex] 5 mg PO DAILY 01/28/18 RX: cloNIDine 0.2 mg/24 hr 0.2 mg TD QWK 01/28/18 [catapres-TTS2 0.2 mg/24 hr] RX: Carvedilol [Coreg] 12.5 mg PO BID 03/15/18 Sodium Bicarbonate 1 tab PO BID 03/15/18 Ondansetron ODT [Zofran ODT] 4 mg PO Q8 PRN #10 odt 03/16/18 - Allergies Allergies/Adverse Reactions: Allergies Allergy/AdvReac Type Severity Reaction Status Date / Time No Known Allergies Allergy Verified 03/15/18 10:39 Review of Systems ROS Statement: Except As Marked, All Systems Reviewed And Found Negative Gastrointestinal: Positive for: Nausea, Vomiting <Jack Coyle - Last Filed: 03/18/18 13:18> Physical Exam - Reviewed Nursing Documentation Reviewed: Yes Vital Signs Reviewed: Yes - Physical Exam Appears: Positive for: Non-toxic, No Acute Distress, Uncomfortable Head Exam: Positive for: ATRAUMATIC, NORMAL INSPECTION Skin: Positive for: Normal Color, Warm, Dry. Negative for: Diaphoresis, Pallor, Rash Eye Exam: Positive for: Normal appearance. Negative for: Nystagmus, Periorbital swelling, Periorbital tenderness Neck: Positive for: Normal, Painless ROM, Supple. Negative for: Decreased ROM Cardiovascular/Chest: Positive for: Regular Rate, Rhythm Respiratory: Positive for: Normal Breath Sounds Gastrointestinal/Abdominal: Positive for: Normal Exam, Bowel Sounds (active in all four quadrants), Soft. Negative for: Tenderness, Mass, Distended, Guarding Back: Positive for: Normal Inspection. Negative for: L CVA Tenderness, R CVA Tenderness <BenzianJack J - Last Filed: 03/18/18 13:18> - Laboratory Results Result Diagrams: 03/16/18 18:30 03/16/18 18:30 Lab Results: Troponin I 0.0470 ng/mL (0.00-0.120) 03/16/18 18:30 Total Bilirubin 0.3 mg/dl (0.2-1.3) 03/16/18 18:30 AST 17 U/L (14-36) 03/16/18 18:30 ALT 16 U/L (9-52) 03/16/18 18:30 Alkaline Phosphatase 90 U/L (38-126) 03/16/18 18:30 Total Protein 5.3 G/DL (6.3-8.2) L 03/16/18 18:30 Albumin 2.5 g/dL (3.5-5.0) L 03/16/18 18:30 Globulin 2.8 gm/dL (2.2-3.9) 03/16/18 18:30 Albumin/Globulin Ratio 0.9 (1.0-2.1) L 03/16/18 18:30 Lipase < 10 U/L (23-300) L 03/16/18 18:30 <Alex Arrington - Last Filed: 03/17/18 15:57> - Laboratory Results Result Diagrams: 03/16/18 18:30 03/16/18 18:30 Lab Results: Troponin I 0.0470 ng/mL (0.00-0.120) 03/16/18 18:30 Total Bilirubin 0.3 mg/dl (0.2-1.3) 03/16/18 18:30 AST 17 U/L (14-36) 03/16/18 18:30 ALT 16 U/L (9-52) 03/16/18 18:30 Alkaline Phosphatase 90 U/L (38-126) 03/16/18 18:30 Total Protein 5.3 G/DL (6.3-8.2) L 03/16/18 18:30 Albumin 2.5 g/dL (3.5-5.0) L 03/16/18 18:30 Globulin 2.8 gm/dL (2.2-3.9) 03/16/18 18:30 Albumin/Globulin Ratio 0.9 (1.0-2.1) L 03/16/18 18:30 Lipase < 10 U/L (23-300) L 03/16/18 18:30 - ECG O2 Sat by Pulse Oximetry: 97 <Jack Coyle - Last Filed: 03/18/18 13:18> Disposition <Alex Arrington - Last Filed: 03/17/18 15:57> - Patient ED Disposition Is Patient to be Admitted: No Doctor Will See Patient In The: Office Counseled Patient/Family Regarding: Studies Performed, Diagnosis, Need For Followup - Disposition Disposition: Routine/Home Disposition Time: 22:00 <Jack Coyle - Last Filed: 03/18/18 13:18> - Clinical Impression Clinical Impression: Nausea & vomiting - Disposition Condition: IMPROVED Prescriptions: Ondansetron ODT [Zofran ODT] 4 mg PO Q8 PRN #10 odt PRN Reason: Nausea/Vomiting Instructions: Nausea and Vomiting, Adult Forms: [facility] (Filipino) Procedures - EJ/Peripheral Line Consent Obtained: verbal consent Time Out Performed: Yes Skin Cleansed in Sterile Fashion: Yes Size: 24 (Setswana catheter) IV Secured and Dressing Applied: Yes Patient Tolerated Procedure: Well Additional comments: Left EJ procedure performed by Dr. Arrington. Patient tolerated procedure well and there were no complications. <Alex Arrington - Last Filed: 03/17/18 15:57>
[2018-03-16] MEDS ORDERED: Labetalol 5 mg/ml Inj 20ML IVP STA (19:59)
[2018-03-16] MEDS ORDERED: Labetalol 5mg/ml (4ml) ONE (20:13)
[2018-03-16 21:04] VITALS: BP 161/100; PULSE 89
--- NOTE | 2018-03-16 21:20 | ED PDOC ---
- Laboratory Results Result Diagrams: 03/16/18 18:30 03/16/18 18:30 Lab Results: Troponin I 0.0470 ng/mL (0.00-0.120) 03/16/18 18:30 Total Bilirubin 0.3 mg/dl (0.2-1.3) 03/16/18 18:30 AST 17 U/L (14-36) 03/16/18 18:30 ALT 16 U/L (9-52) 03/16/18 18:30 Alkaline Phosphatase 90 U/L (38-126) 03/16/18 18:30 Total Protein 5.3 G/DL (6.3-8.2) L 03/16/18 18:30 Albumin 2.5 g/dL (3.5-5.0) L 03/16/18 18:30 Globulin 2.8 gm/dL (2.2-3.9) 03/16/18 18:30 Albumin/Globulin Ratio 0.9 (1.0-2.1) L 03/16/18 18:30 Lipase < 10 U/L (23-300) L 03/16/18 18:30 - ECG O2 Sat by Pulse Oximetry: 100 - Progress ED Course And Treament: Case endorsed to insurance underwriter sales from [employer] pending repeat BP after meds given BP improving. Patient resting comfortably; no vomiting Patient educated on findings, discharged with instructions to follow up with PMD within 2-3 days Rx zofran provided Return precautions given Disposition - Clinical Impression Clinical Impression: Nausea & vomiting - POA Present On Arrival: None - Disposition Disposition: Routine/Home Disposition Time: 21:21 Condition: IMPROVED Prescriptions: Ondansetron ODT [Zofran ODT] 4 mg PO Q8 PRN #10 odt PRN Reason: Nausea/Vomiting Instructions: Nausea and Vomiting, Adult Forms: [facility] (Albanian)
[2018-03-18 13:18] VITALS: O2SAT 97
== END 2018-03-16 21:55 | disposition home or self-care (01) ==
LOC: H.ER 14:53
DX: R11.2 Nausea with vomiting, unspecified (principal); I12.9 Hypertensive chronic kidney disease with stage 1 through stage 4 chronic kidney disease, or unspecified chronic kidney disease; Z79.4 Long term (current) use of insulin; Z99.2 Dependence on renal dialysis
CPT/HCPCS: 80053; 82948; 83690; 84484; 85025; 87804; 96361; 96374; 96375; 99284; C9113; J1200; J2405; J7030

== ENCOUNTER 2018-03-26 15:22 | Inpatient (IN) | payer MEDICAID ==
[2018-03-26 15:23] VITALS: BMI 29.2
--- NOTE | 2018-03-26 17:16 | ED PDOC ---
HPI:Nausea, Vomiting, Diarrhea Time Seen by Provider: 03/26/18 15:53 Chief Complaint (Nursing): Abdominal Pain Chief Complaint (Provider): Nausea and vomiting History Per: Patient History/Exam Limitations: no limitations Onset/Duration Of Symptoms: Days (x2) Current Symptoms Are (Timing): Still Present Associated Symptoms: Nausea, Vomiting Additional Complaint(s): 27 year old female presents to the ED with nausea, several episodes of vomiting that started yesterday, and epigastric pain. Patient has had these symptoms many times in the past and presented to this ER with similar symptoms. She was diagnosed with gastroparesis. Patient is on dialysis and was supposed to be on dialysis today but missed the appointment. At the center, patient had a syncopal episode at the doorway and passed out. She is now complaining of epigastric pain, nausea, and vomiting. PMD: Dr. Camacho,Norris Schilling Jr. Past Medical History Reviewed: Historical Data, Nursing Documentation, Vital Signs Vital Signs: Last Vital Signs Temp 98.9 F 03/26/18 15:28 Pulse 105 H 03/26/18 15:28 Resp 18 03/26/18 15:28 BP 191/118 H 03/26/18 15:28 Pulse Ox 95 03/26/18 15:28 - Medical History PMH: Anemia, Anxiety, Bronchitis, Depression, Diabetes, HTN, End Stage Renal Disease, Chronic Kidney Disease, Seizures (Pseudo seizures?) Denies: HIV - Surgical History Surgical History: Appendectomy, Endoscopy - Family History Family History: States: Unknown Family Hx - Immunization History Hx Tetanus Toxoid Vaccination: No Hx Influenza Vaccination: Yes Hx Pneumococcal Vaccination: Yes - Home Medications Home Medications: Ambulatory Orders Medication Instructions Recorded RX: Pantoprazole [Protonix EC Tab] 40 mg PO DAILY #30 ect 01/04/18 RX: Torsemide [Demadex] 5 mg PO DAILY 01/28/18 Metoclopramide HCl [Reglan] 10 mg PO AC #52 tablet 03/09/18 RX: Calcitriol [Rocaltrol] 0.25 mcg PO MWF #6 sgl 03/09/18 RX: Ergocalciferol [Drisdol 50,000 1 cap PO Q7D #2 cap 03/09/18 Intl Units Cap] RX: cloNIDine 0.2 mg/24 hr 1 patch TD Q7D@1000 #2 patch 03/09/18 [catapres-TTS2 0.2 mg/24 hr] Ondansetron ODT [Zofran ODT] 4 mg PO Q8 PRN #10 odt 03/16/18 HYDROmorphone [Dilaudid] 1 mg PO Q12 PRN 03/26/18 Insulin Glargine,Hum.rec.anlog 13 unit SC HS 03/26/18 [Basaglar Kwikpen U-100] Insulin Lispro [Admelog] 4 mg SC ACTID 03/26/18 Liraglutide [Victoza 2-Ángel] 0.6 mg SC DAILY 03/26/18 RX: Carvedilol [Coreg] 12.5 mg PO Q12 03/26/18 RX: Sodium Bicarbonate Tab 650 mg PO Q12 03/26/18 RX: amLODIPine [Norvasc] 5 mg PO DAILY 03/26/18 - Allergies Allergies/Adverse Reactions: Allergies Allergy/AdvReac Type Severity Reaction Status Date / Time No Known Allergies Allergy Verified 03/23/18 09:16 Review of Systems ROS Statement: Except As Marked, All Systems Reviewed And Found Negative Gastrointestinal: Positive for: Nausea, Vomiting, Abdominal Pain (epigastric p ain) Physical Exam - Reviewed Nursing Documentation Reviewed: Yes Vital Signs Reviewed: Yes - Physical Exam Appears: Positive for: Uncomfortable Head Exam: Positive for: ATRAUMATIC, NORMOCEPHALIC Skin: Positive for: Pallor Eye Exam: Positive for: Normal appearance, EOMI ENT: Positive for: Normal ENT Inspection Neck: Positive for: Normal, Painless ROM Cardiovascular/Chest: Positive for: Regular Rate, Rhythm, Tachycardia Respiratory: Positive for: Normal Breath Sounds. Negative for: Wheezing, Respiratory Distress Gastrointestinal/Abdominal: Positive for: Soft, Tenderness (epigastric ). Negative for: Distended Extremity: Positive for: Normal ROM Neurologic/Psych: Positive for: Alert, Oriented. Negative for: Motor/Sensory Deficits - Laboratory Results Result Diagrams: 03/28/18 06:30 03/28/18 06:30 - ECG O2 Sat by Pulse Oximetry: 95 (RA) Pulse Ox Interpretation: Normal Medical Decision Making Medical Decision Making: Initial Impression: Nausea, vomiting and abdominal pain; likely recurrent gastroparesis. r/o gastritis, pancreatitis; less likely colitis or small bowel obstruction. Initial Plan: --VBG shock panel --Alcohol serum stat --CMP --Lactic acid stat --Lipase stat --CBC --Sodium chloride 1000mL IV --Reglan 10mg IV --Toradol 30mg IV --Zofran 8mg PO 1600 Procedure note. Left EJ placement. Verbal consent obtained. 22G catheter placed in Left EJ. No complications. 17:[address] Arce. Pending labs and reevaluation. -------- --------- Scribe Attestation: Documented by Oscar Mcdonough acting as a scribe for Alex Arrington MD. Provider Scribe Attestation: All medical record entries made by the Scribe were at my direction and personally dictated by me. I have reviewed the chart and agree that the record accurately reflects my personal performance of the history, physical exam, medical decision making, and the department course for this patient. I have also personally directed, reviewed, and agree with the discharge instructions and disposition. Disposition - Clinical Impression Clinical Impression: Intractable vomiting, Diabetic gastroparesis, CRF (chronic renal failure) - Patient ED Disposition Is Patient to be Admitted: Transfer of Care Counseled Patient/Family Regarding: Studies Performed, Diagnosis - Disposition Disposition: Transfer of Care Disposition Time: 16:00 Condition: STABLE
[2018-03-26] MEDS: Sodium Chloride 0.9% 1,000 ML IV STA ×2 (17:22→17:30)
[2018-03-26 17:30] LABS: BASO % 0.4 % (0.0-2.0); EOS # 0.1 K/uL (0.0-0.7); EOS % 0.4 % (0.0-4.0); HEMOGLOBIN 10.2 g/dL (12.0-16.0); LYMPH # 1.5 K/uL (1.0-4.3); LYMPH % 12.1 % (20.0-40.0); MEAN CELL VOLUME 86.4 fl (81.0-99.0); MEAN CORPUSCULAR HEMOGLOBIN 27.7 pg (27.0-31.0); MEAN CORPUSCULAR HGB CONC 32.1 g/dL (33.0-37.0); MEAN PLATELET VOLUME 10.3 fl (7.2-11.7); MONO # 0.3 K/uL (0.0-0.8); MONO % 2.7 % (0.0-10.0); NEUT # 10.4 K/uL (1.8-7.0); NEUT % 84.4 % (50.0-75.0); RBC 3.67 Mil/uL (3.80-5.20); RED CELL DISTRIBUTION WIDTH 15.7 % (11.5-14.5); WHITE BLOOD COUNT 12.4 K/uL (4.8-10.8)
[2018-03-26 17:59] LABS: ALBUMIN 3.3 g/dL (3.5-5.0); ALT/SGPT 18 U/L (9-52); AST/SGOT 32 U/L (14-36); BLOOD UREA NITROGEN 27 mg/dl (7-17); CALCIUM 8.9 mg/dL (8.4-10.2); GFR NON-AFRICAN AMERICAN 12; LIPASE 20 U/L (23-300)
--- NOTE | 2018-03-26 18:12 | ED PDOC ---
- Laboratory Results Result Diagrams: 03/26/18 16:55 03/26/18 16:55 Lab Results: Total Bilirubin 0.4 mg/dl (0.2-1.3) 03/26/18 16:55 AST 32 U/L (14-36) 03/26/18 16:55 ALT 18 U/L (9-52) 03/26/18 16:55 Alkaline Phosphatase 117 U/L (38-126) 03/26/18 16:55 Total Protein 6.5 G/DL (6.3-8.2) 03/26/18 16:55 Albumin 3.3 g/dL (3.5-5.0) L D 03/26/18 16:55 Globulin 3.3 gm/dL (2.2-3.9) 03/26/18 16:55 Albumin/Globulin Ratio 1.0 (1.0-2.1) 03/26/18 16:55 Lipase 20 U/L (23-300) L 03/26/18 16:55 - ECG O2 Sat by Pulse Oximetry: 95 (RA) Medical Decision Making Medical Decision Making: Continues to have vomiting despite Zofran x 2 and Reglan and Ativan. Will place in obs for monitored IV hydration and continued antiemetics Disposition - Clinical Impression Clinical Impression: Intractable vomiting, Diabetic gastroparesis, CRF (chronic renal failure) - POA Present On Arrival: None - Disposition Disposition: Hospitalized as Observation Patient Disposition Time: 18:13 Condition: FAIR Forms: [employer] (Thai)
[2018-03-26] MEDS ORDERED: Labetalol 5 mg/ml Inj 20ML IVP STA (18:14)
[2018-03-26] MEDS ORDERED: Labetalol 5mg/ml (4ml) IVP STA (18:16)
[2018-03-26] MEDS ORDERED: Labetalol 5mg/ml (4ml) ONE (18:44)
[2018-03-26] MEDS ORDERED: Ergocalciferol 50,000 Intl Units Cap PO SCH (23:30)
[2018-03-27] MEDS ORDERED: Insulin Lispro (humaLOG) 100 Units/ml Inj SC ONE (05:45)
[2018-03-27] MEDS ORDERED: Patient's Own Med (Torsemide [Demadex] 5 mg) PO SCH (09:00)
[2018-03-27] MEDS ORDERED: Enoxaparin 40 mg Syringe SC SCH (09:00)
[2018-03-27] MEDS: Insulin Lispro (humaLOG) 100 Units/ml Inj SC SCH ×7 (10:08→22:22)
[2018-03-27] MEDS: Pantoprazole 40 mg EC Tab PO SCH (10:13)
--- NOTE | 2018-03-27 11:39 | RAD ---
Date of service: 03/27/2018 PROCEDURE: CHEST RADIOGRAPH, 1 VIEW HISTORY: ESRD, r/o pulm vasc congestion COMPARISON: Chest radiograph dated 01/28/2018 FINDINGS: LUNGS: Clear. PLEURA: No pneumothorax or pleural fluid seen. CARDIOVASCULAR: No aortic atherosclerotic calcification present. Normal. OSSEOUS STRUCTURES: No significant abnormalities. VISUALIZED UPPER ABDOMEN: Normal. OTHER FINDINGS: Right internal jugular access tunneled hemodialysis catheter with tips at the cavoatrial junction. IMPRESSION: No active disease.
[2018-03-27] MEDS: Enoxaparin 30 mg Syringe SC SCH (13:42)
--- NOTE | 2018-03-27 18:37 | HP ---
CHIEF COMPLAINT: Multiple episodes of vomiting. HISTORY OF PRESENT ILLNESS: This is a 27-year-old female, known case of diabetes, end-stage renal disease, history of gastroparesis with multiple admissions in the past for similar reasons, who was supposed to go for dialysis yesterday, but missed her dialysis and was having multiple episodes of vomiting which did not subside, so the patient decided to come to emergency room and was admitted for further management. REVIEW OF SYSTEMS: Positive for multiple episodes of vomiting, abdominal discomfort and generalized weakness. Review of systems otherwise is negative for headache, dizziness, syncope, loss of consciousness, chest pain, shortness of breath, any new joint or extremity pain. Review of systems of all other organ system is unremarkable. PAST MEDICAL HISTORY: Significant for diabetes; hypertension; end-stage renal disease, on dialysis; seizure which look like pseudoseizures at times for seeking behavior; anemia, anxiety, bronchitis, depression, hypertension. PAST SURGICAL HISTORY: Remarkable for endoscopy, appendectomy, dialysis-related interventions. PERSONAL HISTORY: This patient is currently a nonsmoker, nondrinker, no substance abuse. MEDICATIONS: The patient is on Protonix, Demadex, Rocaltrol, Drisdol, Reglan, Zofran, clonidine, Coreg, Dilaudid, Basaglar, Victoza, Admelog, Norvasc, and sodium bicarbonate. ALLERGIES: THE PATIENT IS NOT ALLERGIC TO ANY MEDICATIONS. FAMILY HISTORY: Noncontributory. PHYSICAL EXAMINATION: GENERAL: Well-built, well-nourished, overweight, 27-year-old female, in no acute distress. VITAL SIGNS: Temperature 98.2, pulse 80, respirations 16, blood pressure 165/90, saturation 98%. HEENT: Pupils are reacting to light. No nystagmus. Normocephalic and atraumatic scalp. NECK: No JVD, no thyromegaly. No lymphadenopathy. HEART: S1 and S2 normal and regular. No significant murmur, gallop or rub is heard. LUNGS: Shows good bilateral air exchange. No rales or rhonchi. ABDOMEN: Soft and nontender. No organomegaly, no fluid. Bowel sounds are present and normal. No sign of acute abdomen. No guarding, no rigidity, no rebound. EXTREMITIES: No edema, no calf swelling, no tenderness, no acute ischemia. CENTRAL NERVOUS SYSTEM: Essentially unchanged. There is no sign of any acute gross focal motor or sensory neurological deficit. DIAGNOSTIC DATA: Available diagnostic data reviewed. Telemetry monitoring does not reveal significant arrhythmia. WBC is 12.4, hemoglobin 10.2, hematocrit 31.7, platelets 369. Sodium 133, potassium 3.9, chloride 98, bicarb 22, BUN 27, creatinine 4.5. Accu-Cheks are 336, 447 and 339. Lipase level is 20. Lactic acid is 2. ADMITTING IMPRESSION: Intractable vomiting, gastroparesis, uncontrolled typ2 diabetes with hyperglycemia, end-stage renal disease, hypertension, seizures versus pseudoseizures, obesity with BMI of 32. PLAN: As ordered. Case and plan discussed with the patient. Garret Rg MD
[2018-03-27] MEDS: Insulin Detemir 100 Units/ml Inj SC SCH (21:31)
--- NOTE | 2018-03-28 01:52 | CON ---
DATE: 03/27/2018 NEPHROLOGY CONSULTATION HISTORY OF PRESENT ILLNESS: The patient is a 27-year-old female with past medical history of hypertension, diabetes with diabetic nephropathy and nephrotic syndrome, diabetic gastroparesis, pseudoseizures, and ESRD, on hemodialysis (Thursday, Thursday, and Thursday at [facility] [place] under our outpatient service). Brought to ED after recurrence of persistent vomiting and severe lethargy. Nephrology being consulted for ESRD care. The patient was just started on hemodialysis two weeks ago; presented for outpatient HD treatment yesterday and was noted to be severely lethargic, and at one point, fell down. Sugars were checked and were above 200. EMS was subsequently called, the patient was taken to ED. The patient reports developing sudden onset of recurrent and persistent vomiting since the night before presentation; cannot point toward any triggering factor. She says that her appetite had been somewhat erratic. Blood sugars had been controlled lately. Does report being somewhat constipated. PAST MEDICAL HISTORY: As above with biopsy proven diabetic nephropathy in 2017, status post left arm AV fistula creation two weeks ago, and initiation on hemodialysis in late 02/2017 via right IJ tunneled catheter; history also of pseudoseizures. SOCIAL HISTORY: Nonsmoker. FAMILY HISTORY: . REVIEW OF SYSTEMS: CONSTITUTIONAL: Lethargy as per HPI. HEENT: Reportedly had blurry vision yesterday, but now improved. Denies any dysphagia. RESPIRATORY: Denies any dyspnea currently. CARDIOVASCULAR: Reportedly had some chest pains yesterday attributing it to anxiety. GASTROINTESTINAL: As per HPI. GENITOURINARY: Reports urinating well. No dysuria. MUSCULOSKELETAL: No arthralgias or back pain. PSYCHIATRIC: Anxiety issues; history of pseudoseizures. PHYSICAL EXAMINATION: VITAL SIGNS: This afternoon, blood pressure 120/75, heart rate 82, respirations 20, temperature 98.4, O2 saturation 100% on room air. GENERAL: No distress. Conversing coherently in full sentences. HEENT: Moist mucous membranes. Nonicteric. No cervical lymphadenopathy. RESPIRATORY: Lungs clear to auscultation bilaterally. No rales, no rhonchi, no wheezes. CARDIOVASCULAR: Heart sounds S1 and S2 normal. No murmurs. No gallops. No rubs. GASTROINTESTINAL: Abdomen soft, nondistended, some tenderness. GENITOURINARY: No bladder distention. EXTREMITIES: No leg edema. Left arm AV fistula with good bruits and thrill. SKIN: Warm. No cyanosis. PSYCHIATRIC: Normal mood and normal affect. LABORATORY DATA: On presentation, CBC: WBC 12.4, hemoglobin 10.2, hematocrit 31.7, platelets 369. Chemistry panel: Sodium 136, potassium 3.9, chloride 98, bicarb 22. BUN 27, creatinine 4.5, glucose 339, calcium 8.9, AST 32, ALT 18, albumin 3.3, lactate 2. Chest x-ray directly visualized showing lungs clear. No pulmonary vascular congestion. ASSESSMENT AND PLAN: 1. End-stage renal disease, on hemodialysis. The patient still with significant residual renal function; stable electrolyte and volume status. No urgency for dialysis, but should continue with three times per week dialysis to ensure adequate control of uremia. Dialyzing today mainly for clearance with 0 ultrafiltration goal. 2. Hypertensive end-stage renal disease. Blood pressure markedly elevated on presentation as it is often the case when she presents with severe vomiting; much better controlled now; Coreg started by primary attending. We will decrease dose to 12.5 mg and restart losartan 25 mg daily. Continue amlodipine and clonidine patch. 3. Diabetic gastroparesis with yet another flare; unclear triggering factor. The patient is advised that she should be on standing dose of Protonix at home (currently only using as needed). Agree with Reglan with meals, but needs to be dose reduced for end-stage renal disease. We will decrease to 5 mg. 4. Anemia, the patient may be somewhat hemoconcentrated. Otherwise had been on erythropoietin as outpatient. We will monitor. 5. 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 The patient is currently getting calcitriol on dialysis days. We will continue the same. We will check phosphorus level. Thank you for this referral. We will be following up closely. Musa Martines MD
--- NOTE | 2018-03-28 05:12 | CON ---
DATE: 03/27/2018 REFERRING DOCTOR: Garret Rg MD REASON FOR CONSULTATION: Gastroparesis. HISTORY OF PRESENT ILLNESS: This is a 27-year-old female, very familiar to me in this hospital for gastroparesis, seen in the office. She is 27-year-old young, has significant longstanding history of gastroparesis, partially noncompliant, disease. She was brought in again for episodes of nausea, vomiting, abdominal pain and discomfort. The patient has had multiple admissions for such. She states that the gastroparesis is acting up again on code as she is doing well on diet now and is lying in bed comfortable at this point, in no apparent distress. PAST MEDICAL HISTORY: As above. PAST SURGICAL HISTORY: As above. MEDICATIONS: Reviewed. REVIEW OF SYSTEMS: All other systems have been reviewed and negative apart from the HPI. PHYSICAL EXAMINATION: VITAL SIGNS: Here in the hospital, grossly unremarkable. GENERAL: This is a young female, lying in bed, comfortable, in no apparent distress. HEENT: Head: Normocephalic and atraumatic. Eyes: Pupils are equally reactive to light bilaterally. No conjunctival pallor or icterus. NECK: Supple. Normal range of motion. No lymphadenopathy appreciated. LUNGS: Coarse breath sounds bilaterally. HEART: S1 and S2. Regular rate and rhythm. ABDOMEN: Soft. Nontender. Some discomfort. No rebound. No guarding. RECTAL: Deferred. EXTREMITIES: Pulses felt bilaterally. SKIN: Warm, dry, and intact. NEUROLOGIC: A and O x3. LABORATORY DATA: Labs and radiology have been reviewed. WBC is 12.4, hemoglobin 10.2, hematocrit 31.7, and platelet count is 369. Sugars are 316. Albumin 3.3, lipase 20. Alcohol is negative. ASSESSMENT AND PLAN: This is a 27-year-old female with flare-up of gastroparesis. Recommend Zofran and Pepcid as well alternating with Reglan if possible. We will follow up the patient with you. Advance diet slowly. Dialysis as per Renal. Thank you for the consult. Kit Rodriguez MD/ PhD cc: Garret Rg MD
[2018-03-28] MEDS: Insulin Lispro (humaLOG) 100 Units/ml Inj SC SCH ×7 (06:13→22:35)
--- NOTE | 2018-03-28 07:29 | PN ---
DATE: 03/28/2018 SUBJECTIVE: The patient seen and examined. Interim events noted. Consults noted and appreciated. Gastroenterology and Nephrology followup and intervention noted and appreciated. The patient remains in progressive care unit on telemetry monitoring. The patient is sleeping, does not want to wake up and get into conversation at this time, but denies any specific complaint. No specific issue reported by nursing staff. PHYSICAL EXAMINATION: GENERAL: The patient is in no acute distress. VITAL SIGNS: Stable. HEART: S1 and S2 normal, regular. LUNGS: Good bilateral air exchange. ABDOMEN: Soft, nontender. No sign of acute abdomen. No guarding, no rigidity, no rebound. Bowel sounds are present and normal. EXTREMITIES: No edema, no calf swelling. No tenderness. No acute ischemia. CENTRAL NERVOUS SYSTEM: Exam is essentially unchanged. DIAGNOSTIC DATA: Available diagnostic data reviewed. Telemetry monitoring does not show significant arrhythmias. ASSESSMENT AND PLAN: Overall, the patient's general medical condition is stable seems to be improving. Plan as ordered. Garret Rg MD
[2018-03-28 07:32] LABS: HEMOGLOBIN 9.3 g/dL (12.0-16.0); MEAN CELL VOLUME 86.2 fl (81.0-99.0); MEAN CORPUSCULAR HGB CONC 32.5 g/dL (33.0-37.0); RBC 3.34 Mil/uL (3.80-5.20); RED CELL DISTRIBUTION WIDTH 15.2 % (11.5-14.5); WHITE BLOOD COUNT 5.7 K/uL (4.8-10.8)
[2018-03-28 08:15] LABS: ALB/GLOB RATIO 0.9 (1.0-2.1); ALBUMIN 2.9 g/dL (3.5-5.0); CALCIUM 8.6 mg/dL (8.4-10.2)
[2018-03-28] MEDS: Enoxaparin 30 mg Syringe SC SCH (09:21)
[2018-03-28] MEDS: Pantoprazole 40 mg EC Tab PO SCH (09:21)
[2018-03-28] MEDS: Insulin Detemir 100 Units/ml Inj SC SCH (22:35)
[2018-03-29] MEDS: Insulin Lispro (humaLOG) 100 Units/ml Inj SC SCH ×7 (09:52→22:43)
[2018-03-29] MEDS: Enoxaparin 30 mg Syringe SC SCH (09:54)
[2018-03-29] MEDS: Pantoprazole 40 mg EC Tab PO SCH (09:56)
--- NOTE | 2018-03-29 15:02 | PN ---
DATE: 03/29/2018 SUBJECTIVE: The patient seen and examined. Interim events noted. Consults noted and appreciated. The patient is sleeping, arousable, feels okay. Complains of anxiousness. Shouts with everyone. The patient is able to eat little better. Nausea and vomiting improved. No abdominal pain. PHYSICAL EXAMINATION: GENERAL: The patient is in no acute distress. VITAL SIGNS: Stable. HEART: S1 and S2 normal, regular. LUNGS: Good bilateral air exchange. ABDOMEN: Soft, nontender. EXTREMITIES: No edema. No calf swelling. No tenderness. No acute ischemia. CENTRAL NERVOUS SYSTEM: Exam is essentially unchanged. DIAGNOSTIC DATA: Available diagnostic date reviewed. Overall, the patient's general medical condition is stable. PLAN: As ordered. Garret Rg MD
[2018-03-29] MEDS: Insulin Detemir 100 Units/ml Inj SC SCH (22:45)
--- NOTE | 2018-03-29 22:54 | CP.PCM.PN ---
Subjective - Date & Time of Evaluation Date of Evaluation: 03/29/18 Time of Evaluation: 12:00 - Subjective Subjective: Patient tolerating small portions of diet, not vomiting; no sob; urinating well; Objective - Vital Signs/Intake and Output Vital Signs (last 24 hours): Temp Pulse Resp BP Pulse Ox 97.8 F 90 20 113/71 96 03/29/18 20:05 03/29/18 20:05 03/29/18 20:05 03/29/18 20:05 03/29/18 20:05 - Medications Medications: Current Medications Amlodipine Besylate (Norvasc) 5 mg PO DAILY [facility] Last Admin: 03/29/18 09:54 Dose: 5 mg Calcitriol (Rocaltrol) 0.25 mcg PO MWF [facility] Last Admin: 03/29/18 09:55 Dose: 0.25 mcg Carvedilol (Coreg) 12.5 mg PO BID [facility] Last Admin: 03/29/18 16:32 Dose: Not Given Clonidine HCl (Catapres-Tts2 0.2 Mg/24 Hr) 1 patch TD Q7D@1000 RAISA Enoxaparin Sodium (Lovenox) 30 mg SC DAILY [facility]; Protocol Ergocalciferol (Drisdol 50,000 Intl Units Cap) 1 cap PO Q7D [facility] Last Admin: 03/27/18 02:09 Dose: Not Given Hydromorphone HCl (Dilaudid) 1 mg PO Q12 PRN PRN Reason: Pain, severe (8-10) Metoclopramide HCl 10 mg/ (Sodium Chloride) 52 mls @ 300 mls/hr IVP ONCE PRN PRN Reason: Nausea/Vomiting Last Admin: 03/26/18 17:22 Dose: 300 mls/hr Insulin Detemir (Levemir) 13 units SC HS [facility] Last Admin: 03/29/18 22:45 Dose: 13 units Insulin Human Lispro (Humalog) 4 units SC ACTID [facility] Last Admin: 03/29/18 17:28 Dose: 4 units Insulin Human Lispro (Humalog) 0 units SC ACCU-CHECK [facility]; Protocol Last Admin: 03/29/18 22:43 Dose: Not Given Lorazepam (Ativan) 0.5 mg IVP Q6 PRN PRN Reason: Anxiety Last Admin: 03/29/18 20:18 Dose: 0.5 mg Losartan Potassium (Cozaar) 25 mg PO DAILY [facility] Last Admin: 03/29/18 13:03 Dose: Not Given Metoclopramide HCl (Reglan) 5 mg PO AC [facility] Last Admin: 03/29/18 17:29 Dose: 5 mg Ondansetron HCl (Zofran Odt) 4 mg PO Q8 PRN PRN Reason: Nausea/Vomiting Last Admin: 03/29/18 09:55 Dose: 4 mg Pantoprazole Sodium (Protonix Ec Tab) 40 mg PO DAILY [facility] Last Admin: 03/29/18 09:56 Dose: 40 mg Torsemide (Demadex) 5 mg PO DAILY [facility] Last Admin: 03/29/18 09:51 Dose: 5 mg - Labs Labs: 03/28/18 06:30 03/28/18 06:30 - Constitutional Appears: Non-toxic, No Acute Distress - Eye Exam Eye Exam: Normal appearance. absent: Scleral icterus - Respiratory Exam Respiratory Exam: Clear to Ausculation Bilateral. absent: Respiratory Distress - Cardiovascular Exam Cardiovascular Exam: RRR, +S1, +S2 - GI/Abdominal Exam GI & Abdominal Exam: Soft. absent: Distended, Tenderness - Extremities Exam Additional comments: no leg edema; L arm AVF w/ somewhat sharp bruit - Psychiatric Exam Psychiatric exam: Normal Affect, Normal Mood. absent: Agitated - Skin Skin Exam: Warm. absent: Cyanosis Assessment and Plan (1) ESRD on hemodialysis Assessment & Plan: Stable volume and electrolyte status; dialyzing today per routine with 1L net UF goal; -continue to avoid nephrotoxic agents to help preserve residual renal function; Status: Chronic (2) Hypertensive CKD, ESRD on dialysis Assessment & Plan: BP much better controlled, some meds held today; will decrease coreg further to 6.25 mg bid; Status: Acute (3) Diabetic gastroparesis Assessment & Plan: Too frequent flares, not improved with initiation of HD; needs close GI f/u; -renal dosing for reglan; -advised to keep on laxative as needed, should avoid aluminum/mag containing agents due to renal failure; Status: Acute (4) Anemia in CKD (chronic kidney disease) Assessment & Plan: Hgb below goal, getting long acting EPO as outpatient; Status: Chronic (5) Chronic kidney disease-mineral and bone disorder Assessment & Plan: continue calcitriol 0.25 mcg qMWF; Status: Chronic
[2018-03-30] MEDS ORDERED: Insulin Lispro (humaLOG) 100 Units/ml Inj SC STA ×2 (01:19→02:05)
[2018-03-30 02:56] LABS: SQUAMOUS EPITHIAL < 1 /hpf (0-5); URINE BILIRUBIN NEGATIVE (NEGATIVE); URINE BLOOD NEGATIVE (NEGATIVE); URINE CLARITY CLEAR (Clear); URINE COLOR COLORLESS (YELLOW); URINE GLUCOSE (UA) >=500 mg/dL (NEGATIVE); URINE LEUKOCYTE ESTERASE NEG Leu/uL (Negative); URINE PROTEIN 100 mg/dL (NEGATIVE); URINE UROBILINOGEN 0.2-1.0 mg/dL (0.2-1.0)
--- NOTE | 2018-03-30 03:33 | CP.PCM.PCO ---
Addendum Addendum: 03/30/18 03:21 Late entry Paged by RN [phone] that pt has blood sugar above 500; 4U insulin ordered. Came to assess pt; pt breathing comfortably, no respiratory distress, c/o anxiety, stating she can't sleep, can't relax, feels too anxious. Pt states she has history of high sugar in the past, hx DKA unclear. 0200 Repeat BS still above 500. Additional 5U lispro ordered. Urinalysis ordered and pt gave sample. 0237 Accucheck 442. [phone] I called lab and asked about UA results- spoke w/ Mattie, no ketones in UA. Pt continues to c/o of anxiety, is crying. Will give 0.5 mg additional ativan; discussed with patient to inquire with admitting provider about her anti-anxiety medications.
[2018-03-30] MEDS ORDERED: Dextrose 50% SYRINGE Inj (50 ml) IV PRN (06:17)
[2018-03-30] MEDS ORDERED: Glucagon Recombinant 1 mg Inj IM PRN (06:17)
--- NOTE | 2018-03-30 07:49 | CP.PCM.CON ---
History of Present Illness - History of Present Illness History of Present Illness: Psychiatry consult note Food Safety Specialist evaluated patient on previous admissions (01/01/19 and 01/12/19) CC: Anxiety HPI: 27 yo female w/ DM, CKD, pseudoseizures, admitted w/ worsening diabetes, abdominal pain and gastroparesis, patient was sleepy during interview, and minimally cooperative. She reports feeling anxious and depressed, but has not been compliant with psychiatric medications or outpatient treatment. She denies acute AH/VH/SI/HI. PPHx: History of treatment w/ Zoloft; started on Remeron on 01/01/18; not compliant with treatment PMHx: DM, CKD, pseudoseizures, gastroparesis ALL: NKDA MSE: A + O x 3, calm, minimally cooperative w/ interview, mood "anxious", affect- constricted, no AH/VH/SI/HI; thought process- linear/coherent, thought content- no delusions; fair I/J Impression: 27 yo female w/ adjustment disorder with mixed anxiety and depressed mood. -No acute psychiatric admission or 1:1 indicated -Remeron to 15 mg PO HS -Ativan 0.5 mg PO/IV TID or Q8Hr PRN anxiety Past Patient History - Infectious Disease Hx of Infectious Diseases: None - Past Medical History & Family History Past Medical History?: Yes - Past Social History Smoking Status: Never Smoked - CARDIAC Hx Hypertension: Yes - PULMONARY Hx Bronchitis: Yes - NEUROLOGICAL Hx Seizures: Yes (Pseudo seizures?) - HEENT Hx HEENT Problems: Yes Hx Cataracts: Yes - RENAL Hx Chronic Kidney Disease: Yes - ENDOCRINE/METABOLIC Hx Endocrine Disorders: Yes Hx Diabetes Mellitus Type 2: Yes (on insulin pump) - HEMATOLOGICAL/ONCOLOGICAL Hx Anemia: Yes Hx Human Immunodeficiency Virus (HIV): No - INTEGUMENTARY Hx Dermatological Problems: No - MUSCULOSKELETAL/RHEUMATOLOGICAL Hx Musculoskeletal Disorders: Yes Hx Falls: Yes - GASTROINTESTINAL Hx Gastrointestinal Disorders: Yes (SEE COMMENT) Other/Comment: gastroparesis - GENITOURINARY/GYNECOLOGICAL Hx Genitourinary Disorders: No - PSYCHIATRIC Hx Anxiety: Yes Hx Depression: Yes - SURGICAL HISTORY Hx Appendectomy: Yes - ANESTHESIA Hx Anesthesia: Yes Hx Anesthesia Reactions: No Hx Malignant Hyperthermia: No Meds Allergies/Adverse Reactions: Allergies Allergy/AdvReac Type Severity Reaction Status Date / Time No Known Allergies Allergy Verified 03/23/18 09:16 - Medications Medications: Current Medications Amlodipine Besylate (Norvasc) 5 mg PO DAILY [facility] Last Admin: 03/29/18 09:54 Dose: 5 mg Calcitriol (Rocaltrol) 0.25 mcg PO MWF [facility] Last Admin: 03/29/18 09:55 Dose: 0.25 mcg Carvedilol (Coreg) 12.5 mg PO BID [facility] Last Admin: 03/29/18 16:32 Dose: Not Given Clonidine HCl (Catapres-Tts2 0.2 Mg/24 Hr) 1 patch TD Q7D@1000 [facility] Dextrose (Dextrose 50% Inj) 0 ml IV STAT PRN; Protocol PRN Reason: Hypoglycemia Protocol Dextrose (Glutose 15) 0 gm PO ONCE PRN; Protocol PRN Reason: Hypoglycemia Protocol Enoxaparin Sodium (Lovenox) 30 mg SC DAILY [facility]; Protocol Ergocalciferol (Drisdol 50,000 Intl Units Cap) 1 cap PO Q7D [facility] Last Admin: 03/27/18 02:09 Dose: Not Given Glucagon (Glucagen Diagnostic Kit) 0 mg IM STAT PRN; Protocol PRN Reason: Hypoglycemia Protocol Metoclopramide HCl 10 mg/ (Sodium Chloride) 52 mls @ 300 mls/hr IVP ONCE PRN PRN Reason: Nausea/Vomiting Last Admin: 03/26/18 17:22 Dose: 300 mls/hr Insulin Detemir (Levemir) 13 units SC [facility] Last Admin: 03/29/18 22:45 Dose: 13 units Insulin Human Lispro (Humalog) 4 units SC ACTID [facility] Last Admin: 03/29/18 17:28 Dose: 4 units Insulin Human Lispro (Humalog) 0 units SC ACCU-CHECK [facility]; Protocol Last Admin: 03/29/18 22:43 Dose: Not Given Lorazepam (Ativan) 0.5 mg IVP Q6 PRN PRN Reason: Anxiety Last Admin: 03/30/18 01:28 Dose: 0.5 mg Losartan Potassium (Cozaar) 25 mg PO DAILY [facility] Last Admin: 03/29/18 13:03 Dose: Not Given Metoclopramide HCl (Reglan) 5 mg PO AC [facility] Last Admin: 03/29/18 17:29 Dose: 5 mg Ondansetron HCl (Zofran Odt) 4 mg PO Q8 PRN PRN Reason: Nausea/Vomiting Last Admin: 03/29/18 09:55 Dose: 4 mg Pantoprazole Sodium (Protonix Ec Tab) 40 mg PO DAILY [facility] Last Admin: 03/29/18 09:56 Dose: 40 mg Torsemide (Demadex) 5 mg PO DAILY [facility] Last Admin: 03/29/18 09:51 Dose: 5 mg Results - Vital Signs Recent Vital Signs: Last Vital Signs Temp 97.7 F 03/30/18 00:51 Pulse 98 H 03/30/18 00:51 Resp 18 03/30/18 00:51 BP 156/97 H 03/30/18 00:51 Pulse Ox 97 03/30/18 00:51 - Labs Result Diagrams: 03/28/18 06:30 03/28/18 06:30 Labs: Laboratory Results - last 24 hr 03/29/18 03/29/18 03/29/18 11:13 15:49 21:35 POC Glucose (mg/dL) 176 H 95 291 H Urine Color Urine Clarity Urine pH Ur Specific Harmon Urine Protein Urine Glucose (UA) Urine Ketones Urine Blood Urine Nitrate Urine Bilirubin Urine Urobilinogen Ur Leukocyte Esterase Urine RBC (Auto) Urine Microscopic WBC Ur Squamous Epith Cells 03/30/18 03/30/18 03/30/18 01:08 02:01 02:37 POC Glucose (mg/dL) > 500 H* > 500 H* 442 H* Urine Color Urine Clarity Urine pH Ur Specific Harmon Urine Protein Urine Glucose (UA) Urine Ketones Urine Blood Urine Nitrate Urine Bilirubin Urine Urobilinogen Ur Leukocyte Esterase Urine RBC (Auto) Urine Microscopic WBC Ur Squamous Epith Cells 03/30/18 03/30/18 02:48 05:41 POC Glucose (mg/dL) 175 H Urine Color Colorless Urine Clarity Clear Urine pH 8.0 Ur Specific Harmon 1.009 Urine Protein 100 Urine Glucose (UA) >=500 Urine Ketones Negative Urine Blood Negative Urine Nitrate Negative Urine Bilirubin Negative Urine Urobilinogen 0.2-1.0 Ur Leukocyte Esterase Neg Urine RBC (Auto) 2 Urine Microscopic WBC 1 Ur Squamous Epith Cells < 1
[2018-03-30] MEDS: Insulin Lispro (humaLOG) 100 Units/ml Inj SC SCH ×4 (08:43→12:57)
[2018-03-30] MEDS: Pantoprazole 40 mg EC Tab PO SCH (08:47)
[2018-03-30] MEDS ORDERED: Enoxaparin 30 mg Syringe SC SCH (09:00)
--- NOTE | 2018-03-30 09:00 | CP.PCM.PN ---
Subjective - Date & Time of Evaluation Date of Evaluation: 03/29/18 Time of Evaluation: 14:00 - Subjective Subjective: no overnight events Objective - Vital Signs/Intake and Output Vital Signs (last 24 hours): Temp Pulse Resp BP Pulse Ox 98.2 F 82 18 153/96 H 99 03/30/18 08:14 03/30/18 08:46 03/30/18 08:14 03/30/18 08:46 03/30/18 08:14 - Medications Medications: Current Medications Amlodipine Besylate (Norvasc) 5 mg PO DAILY REPLACED BY [facility] Last Admin: 03/30/18 08:46 Dose: 5 mg Calcitriol (Rocaltrol) 0.25 mcg PO MWF REPLACED BY [facility] Last Admin: 03/29/18 09:55 Dose: 0.25 mcg Carvedilol (Coreg) 12.5 mg PO BID REPLACED BY [facility] Last Admin: 03/30/18 08:40 Dose: 12.5 mg Clonidine HCl (Catapres-Tts2 0.2 Mg/24 Hr) 1 patch TD Q7D@1000 [facility] Dextrose (Dextrose 50% Inj) 0 ml IV STAT PRN; Protocol PRN Reason: Hypoglycemia Protocol Dextrose (Glutose 15) 0 gm PO ONCE PRN; Protocol PRN Reason: Hypoglycemia Protocol Enoxaparin Sodium (Lovenox) 30 mg SC DAILY REPLACED BY [facility]; Protocol Last Admin: 03/30/18 08:45 Dose: 30 mg Ergocalciferol (Drisdol 50,000 Intl Units Cap) 1 cap PO Q7D REPLACED BY [facility] Last Admin: 03/27/18 02:09 Dose: Not Given Glucagon (Glucagen Diagnostic Kit) 0 mg IM STAT PRN; Protocol PRN Reason: Hypoglycemia Protocol Metoclopramide HCl 10 mg/ (Sodium Chloride) 52 mls @ 300 mls/hr IVP ONCE PRN PRN Reason: Nausea/Vomiting Last Admin: 03/26/18 17:22 Dose: 300 mls/hr Insulin Detemir (Levemir) 13 units SC HS REPLACED BY [facility] Last Admin: 03/29/18 22:45 Dose: 13 units Insulin Human Lispro (Humalog) 4 units SC ACTID REPLACED BY [facility] Last Admin: 03/30/18 08:44 Dose: 4 units Insulin Human Lispro (Humalog) 0 units SC ACCU-CHECK REPLACED BY [facility]; Protocol Last Admin: 03/30/18 08:43 Dose: Not Given Lorazepam (Ativan) 0.5 mg IVP Q6 PRN PRN Reason: Anxiety Last Admin: 03/30/18 01:28 Dose: 0.5 mg Losartan Potassium (Cozaar) 25 mg PO DAILY REPLACED BY [facility] Last Admin: 03/30/18 08:41 Dose: 25 mg Metoclopramide HCl (Reglan) 5 mg PO AC REPLACED BY [facility] Last Admin: 03/30/18 08:47 Dose: 5 mg Ondansetron HCl (Zofran Odt) 4 mg PO Q8 PRN PRN Reason: Nausea/Vomiting Last Admin: 03/29/18 09:55 Dose: 4 mg Pantoprazole Sodium (Protonix Ec Tab) 40 mg PO DAILY REPLACED BY [facility] Last Admin: 03/30/18 08:47 Dose: 40 mg Torsemide (Demadex) 5 mg PO DAILY REPLACED BY [facility] Last Admin: 03/30/18 08:42 Dose: 5 mg - Labs Labs: 03/28/18 06:30 03/28/18 06:30 - Head Exam Head Exam: NORMOCEPHALIC - Neck Exam Neck Exam: Normal Inspection - Respiratory Exam Respiratory Exam: Clear to Ausculation Bilateral, NORMAL BREATHING PATTERN - Cardiovascular Exam Cardiovascular Exam: REGULAR RHYTHM - GI/Abdominal Exam GI & Abdominal Exam: Soft, Normal Bowel Sounds Assessment and Plan - Assessment and Plan (Free Text) Assessment: 27 yo female with gastroparesis continue current plan HD per renal
--- NOTE | 2018-03-30 09:50 | CP.PCM.PN ---
Subjective - Date & Time of Evaluation Date of Evaluation: 03/30/18 Time of Evaluation: 07:50 - Subjective Subjective: Patient seen and examined this morning at bedside with Dr. Rg. Patient was sleeping but easily arousable. Patient states she feels tired, tolerating PO. Uncontrolled blood sugar overnight. Objective - Vital Signs/Intake and Output Vital Signs (last 24 hours): Temp Pulse Resp BP Pulse Ox 98.2 F 82 18 153/96 H 99 03/30/18 08:14 03/30/18 08:46 03/30/18 08:14 03/30/18 08:46 03/30/18 08:14 - Medications Medications: Current Medications Amlodipine Besylate (Norvasc) 5 mg PO DAILY [facility] Last Admin: 03/30/18 08:46 Dose: 5 mg Calcitriol (Rocaltrol) 0.25 mcg PO MWF [facility] Last Admin: 03/29/18 09:55 Dose: 0.25 mcg Carvedilol (Coreg) 12.5 mg PO BID [facility] Last Admin: 03/30/18 08:40 Dose: 12.5 mg Clonidine HCl (Catapres-Tts2 0.2 Mg/24 Hr) 1 patch TD Q7D@1000 [facility] Dextrose (Dextrose 50% Inj) 0 ml IV STAT PRN; Protocol PRN Reason: Hypoglycemia Protocol Dextrose (Glutose 15) 0 gm PO ONCE PRN; Protocol PRN Reason: Hypoglycemia Protocol Enoxaparin Sodium (Lovenox) 30 mg SC DAILY [facility]; Protocol Last Admin: 03/30/18 08:45 Dose: 30 mg Ergocalciferol (Drisdol 50,000 Intl Units Cap) 1 cap PO Q7D [facility] Last Admin: 03/27/18 02:09 Dose: Not Given Glucagon (Glucagen Diagnostic Kit) 0 mg IM STAT PRN; Protocol PRN Reason: Hypoglycemia Protocol Metoclopramide HCl 10 mg/ (Sodium Chloride) 52 mls @ 300 mls/hr IVP ONCE PRN PRN Reason: Nausea/Vomiting Last Admin: 03/26/18 17:22 Dose: 300 mls/hr Insulin Detemir (Levemir) 13 units SC HS [facility] Last Admin: 03/29/18 22:45 Dose: 13 units Insulin Human Lispro (Humalog) 4 units SC ACTID [facility] Last Admin: 03/30/18 08:44 Dose: 4 units Insulin Human Lispro (Humalog) 0 units SC ACCU-CHECK [facility]; Protocol Last Admin: 03/30/18 08:43 Dose: Not Given Lorazepam (Ativan) 0.5 mg IVP Q6 PRN PRN Reason: Anxiety Last Admin: 03/30/18 01:28 Dose: 0.5 mg Losartan Potassium (Cozaar) 25 mg PO DAILY [facility] Last Admin: 03/30/18 08:41 Dose: 25 mg Metoclopramide HCl (Reglan) 5 mg PO AC [facility] Last Admin: 03/30/18 08:47 Dose: 5 mg Ondansetron HCl (Zofran Odt) 4 mg PO Q8 PRN PRN Reason: Nausea/Vomiting Last Admin: 03/29/18 09:55 Dose: 4 mg Pantoprazole Sodium (Protonix Ec Tab) 40 mg PO DAILY [facility] Last Admin: 03/30/18 08:47 Dose: 40 mg Torsemide (Demadex) 5 mg PO DAILY [facility] Last Admin: 03/30/18 08:42 Dose: 5 mg - Labs Labs: 03/28/18 06:30 03/28/18 06:30 - Constitutional Appears: No Acute Distress - Head Exam Head Exam: NORMAL INSPECTION - Eye Exam Eye Exam: Normal appearance - ENT Exam ENT Exam: Mucous Membranes Moist - Neck Exam Neck Exam: Normal Inspection - Respiratory Exam Respiratory Exam: Clear to Ausculation Bilateral, NORMAL BREATHING PATTERN - Cardiovascular Exam Cardiovascular Exam: REGULAR RHYTHM, +S1, +S2 - GI/Abdominal Exam GI & Abdominal Exam: Soft, Normal Bowel Sounds. absent: Tenderness - Extremities Exam Extremities Exam: Normal Inspection - Back Exam Back Exam: NORMAL INSPECTION - Neurological Exam Neurological Exam: Alert, Awake - Psychiatric Exam Psychiatric exam: Normal Affect - Skin Skin Exam: Normal Color Assessment and Plan - Assessment and Plan (Free Text) Assessment: A/P: 27 y/o female with PMH of ESRD, HTN, IDDM-II, severe gastroperesis, and seizure disorder admitted to [facility] for evaluation and treatment of gastroperesis and possible syncopal episode. - Consult GI, recommendations appreciated - Consult Nephro, recommendations appreciated - Consult psych for anxiety, f/u recommendations - C/w Zofran, Pepcid and Reglan as per GI - C/w HD and ESRD management as per Nephro - Continue HTN management as ordered - C/w blood sugar management as ordered - F/u CMP Case discussed with Dr. Rg
--- NOTE | 2018-03-30 13:14 | CP.PCM.PCO ---
Assessment and Plan - Assessment and Plan (Free Text) Assessment: pt. seen and examined this am; feels better this morning ; denies sob, cp, abd pain, n/v; Tolerated breakfast and lunch pt. seen with reports anxiety depression /Fernanda recommendations appreciated' BS controlled pt. cleared for d/c to home today by f/u with / [facility] outpatient Erx sent to pharmacy [facility] outpatient
[2018-03-30 16:28] VITALS: BP 119/76; PULSE 88; RESP 16; TEMP 98; O2SAT 96
--- NOTE | 2018-03-31 11:33 | CP.PCM.DIS ---
Provider - Provider Date of Admission: 03/27/18 18:26 Attending physician: Garret Rg MD Primary care physician: Dr. Camacho Consults: 03/27/18 06:41 Gastroenterology Consult Routine Comment: Consulting Provider: Kit Rodriguez Consulting Physician: Kit Rodriguez Reason for Consult: GASTROPERESIS 03/27/18 07:37 Nephrology Consult Routine Comment: Consulting Provider: Musa Martines Consulting Physician: Musa Martines Reason for Consult: esrd, ckd 03/30/18 07:08 Psychiatry Consult Routine Comment: Consulting Provider: Geeta Michael Consulting Physician: Geeta Michael Reason for Consult: anxiety Time Spent in preparation of Discharge (in minutes): 40 Diagnosis - Discharge Diagnosis (1) Abdominal pain with vomiting Status: Acute (2) Diabetes mellitus with hyperglycemia, with long-term current use of insulin Status: Chronic Priority: High (3) Diabetic gastroparesis Status: Chronic (4) Anxiety Status: Acute (5) CRF (chronic renal failure) Status: Chronic Hospital Course - Lab Results Lab Results: Most Recent Lab Values WBC 5.7 K/uL (4.8-10.8) D 03/28/18 06:30 RBC 3.34 Mil/uL (3.80-5.20) L 03/28/18 06:30 Hgb 9.3 g/dL (12.0-16.0) L 03/28/18 06:30 Hct 28.8 % (34.0-47.0) L 03/28/18 06:30 MCV 86.2 fl (81.0-99.0) 03/28/18 06:30 MCH 28.0 pg (27.0-31.0) 03/28/18 06:30 MCHC 32.5 g/dL (33.0-37.0) L 03/28/18 06:30 RDW 15.2 % (11.5-14.5) H 03/28/18 06:30 Plt Count 372 K/uL (130-400) 03/28/18 06:30 MPV 10.3 fl (7.2-11.7) 03/26/18 16:55 Neut % (Auto) 84.4 % (50.0-75.0) H 03/26/18 16:55 Lymph % (Auto) 12.1 % (20.0-40.0) L 03/26/18 16:55 Walker % (Auto) 2.7 % (0.0-10.0) 03/26/18 16:55 Eos % (Auto) 0.4 % (0.0-4.0) 03/26/18 16:55 Baso % (Auto) 0.4 % (0.0-2.0) 03/26/18 16:55 Neut # (Auto) 10.4 K/uL (1.8-7.0) H 03/26/18 16:55 Lymph # (Auto) 1.5 K/uL (1.0-4.3) 03/26/18 16:55 Walker # (Auto) 0.3 K/uL (0.0-0.8) 03/26/18 16:55 Eos # (Auto) 0.1 K/uL (0.0-0.7) 03/26/18 16:55 Baso # (Auto) 0.0 K/uL (0.0-0.2) 03/26/18 16:55 Sodium 132 mmol/l (132-148) 03/28/18 06:30 Potassium 3.9 MMOL/L (3.6-5.0) 03/28/18 06:30 Chloride 98 mmol/L (98-107) 03/28/18 06:30 Carbon Dioxide 28 mmol/L (22-30) 03/28/18 06:30 Anion Gap 10 (10-20) 03/28/18 06:30 BUN 15 mg/dl (7-17) 03/28/18 06:30 Creatinine 3.2 mg/dl (0.7-1.2) H 03/28/18 06:30 Est GFR ( Amer) 21 03/28/18 06:30 Est GFR (Non-Af Amer) 17 03/28/18 06:30 POC Glucose (mg/dL) 85 mg/dL (65-110) 03/30/18 11:05 Random Glucose 101 mg/dL (65-105) 03/28/18 06:30 Hemoglobin A1c 7.1 % (4.2-6.5) H 03/27/18 11:09 Lactic Acid 2.0 mmol/L (0.7-2.1) 03/26/18 16:55 Calcium 8.6 mg/dL (8.4-10.2) 03/28/18 06:30 Phosphorus 4.4 mg/dl (2.5-4.5) 03/27/18 17:00 Magnesium 2.2 MG/DL (1.6-2.3) 03/27/18 17:00 Total Bilirubin 0.2 mg/dl (0.2-1.3) 03/28/18 06:30 AST 26 U/L (14-36) 03/28/18 06:30 ALT 15 U/L (9-52) 03/28/18 06:30 Alkaline Phosphatase 101 U/L (38-126) 03/28/18 06:30 Total Protein 6.0 G/DL (6.3-8.2) L 03/28/18 06:30 Albumin 2.9 g/dL (3.5-5.0) L 03/28/18 06:30 Globulin 3.1 gm/dL (2.2-3.9) 03/28/18 06:30 Albumin/Globulin Ratio 0.9 (1.0-2.1) L 03/28/18 06:30 Lipase 20 U/L (23-300) L 03/26/18 16:55 Urine Color Colorless (YELLOW) 03/30/18 02:48 Urine Clarity Clear (Clear) 03/30/18 02:48 Urine pH 8.0 (5.0-8.0) 03/30/18 02:48 Ur Specific [place] 1.009 (1.003-1.030) 03/30/18 02:48 Urine Protein 100 mg/dL (NEGATIVE) 03/30/18 02:48 Urine Glucose (UA) >=500 mg/dL (NEGATIVE) 03/30/18 02:48 Urine Ketones Negative mg/dL (NEGATIVE) 03/30/18 02:48 Urine Blood Negative (NEGATIVE) 03/30/18 02:48 Urine Nitrate Negative (NEGATIVE) 03/30/18 02:48 Urine Bilirubin Negative (NEGATIVE) 03/30/18 02:48 Urine Urobilinogen 0.2-1.0 mg/dL (0.2-1.0) 03/30/18 02:48 Ur Leukocyte Esterase Neg Rajiv/uL (Negative) 03/30/18 02:48 Urine RBC (Auto) 2 /hpf (0-3) 03/30/18 02:48 Urine Microscopic WBC 1 /hpf (0-5) 03/30/18 02:48 Ur Squamous Epith Cells < 1 /hpf (0-5) 03/30/18 02:48 Alcohol, Quantitative < 10 mg/dl (0-10) 03/26/18 16:55 - Hospital Course Hospital Course: This is 27 y/o F with PMH of IDDM-II, gastroparesis and ESRD admitted to [facility] for eval and treatment of abdominal pain, vomiting and nausea. After admission, GI and Nephrology consulted, patient was started on Zofran, Reglan and Pepcid as per GI. Patient was HD as per nephro. Patient's gastroparesis improved after admission, blood glucose stabilized to the goal blood sugar. Psych was consulted for patient to eval and treat her anxiety/depression. As per psych continue Remeron HS, Ativan PRN. Patient was clinically stable and cleared by GI for discharge. Patient agrees with discharge plan. ER precautions discussed with patient (vomiting, SOB, chest pain, dizziness, abdominal pain, sweating, pa lpitations) - Instucted to follow up with PMD and specialist in 2-3 days after discharge - Discharge home with Rx of Remeron and Cozaar - C/w home medications as ordered Case discussed and patient seen with Dr. Rg, agrees with plan. Discharge Exam - Head Exam Head Exam: NORMAL INSPECTION - Eye Exam Eye Exam: Normal appearance, PERRL Pupil Exam: NORMAL ACCOMODATION - ENT Exam ENT Exam: Mucous Membranes Moist - Neck Exam Neck exam: Normal Inspection - Respiratory Exam Respiratory Exam: Clear to PA & Lateral, NORMAL BREATHING PATTERN, UNREMARKABLE - Cardiovascular Exam Cardiovascular Exam: REGULAR RHYTHM - GI/Abdominal Exam GI & Abdominal Exam: Normal Bowel Sounds, Soft. absent: Distended, Guarding, Tenderness - Extremities Exam Extremities exam: normal inspection - Back Exam Back exam: NORMAL INSPECTION - Neurological Exam Neurological exam: Alert, CN II-XII Intact, Oriented x3 - Psychiatric Exam Psychiatric exam: Normal Affect - Skin Skin Exam: Normal Color Discharge Plan - Discharge Medications Prescriptions: Losartan [Cozaar] 25 mg PO DAILY #30 tab Mirtazapine [Remeron] 15 mg PO HS #30 tab - Follow Up Plan Condition: STABLE Disposition: HOME/ ROUTINE Instructions: Gastroparesis (Delayed Gastric Emptying) (DC), Chronic Kidney Disease (DC) Additional Instructions: continue with dialysis mon-thu-fri follow up with primary doctor in 1 week Referrals: Garret Rg MD [Staff Provider] - Norris Camacho Jr., MD [Family Provider] - Musa Martines MD [Staff Provider] -
--- NOTE | 2018-03-31 12:31 | CP.PCM.PN ---
Subjective - Date & Time of Evaluation Date of Evaluation: 03/30/18 Time of Evaluation: 09:00 - Subjective Subjective: no overnight events Objective - Vital Signs/Intake and Output Vital Signs (last 24 hours): Temp Pulse Resp BP Pulse Ox 98 F 88 16 119/76 96 03/30/18 16:27 03/30/18 16:27 03/30/18 16:27 03/30/18 16:27 03/30/18 16:27 - Labs Labs: 03/28/18 06:30 03/28/18 06:30 - Neck Exam Neck Exam: Normal Inspection - Respiratory Exam Respiratory Exam: Clear to Ausculation Bilateral, NORMAL BREATHING PATTERN - Cardiovascular Exam Cardiovascular Exam: REGULAR RHYTHM - GI/Abdominal Exam GI & Abdominal Exam: Soft, Normal Bowel Sounds Assessment and Plan - Assessment and Plan (Free Text) Assessment: 27 yo female with gastroparesis doing well dc planning
== END 2018-03-30 16:40 | disposition home or self-care (01) | DRG 18 ==
LOC: H.ER 15:22 → H.ERHOLD 18:09 → H.TEL 03-27 00:53 → OBSVTOIN 03-27 18:26 → H.TEL 03-27 21:18
PROVIDERS: ADMIT Internal Medicine; ATTEND Internal Medicine
PROC: 05HQ33Z Insertion of Infusion Device into Left External Jugular Vein, Percutaneous Approach (ICD-10-PCS; principal; 2018-03-27)
DX: E11.43 Type 2 diabetes mellitus with diabetic autonomic (poly)neuropathy (principal); E11.21 Type 2 diabetes mellitus with diabetic nephropathy; I12.0 Hypertensive chronic kidney disease with stage 5 chronic kidney disease or end stage renal disease; N18.6 End stage renal disease; E11.22 Type 2 diabetes mellitus with diabetic chronic kidney disease; E11.65 Type 2 diabetes mellitus with hyperglycemia; N25.81 Secondary hyperparathyroidism of renal origin; D63.1 Anemia in chronic kidney disease; E66.9 Obesity, unspecified; Z68.32 Body mass index [BMI] 32.0-32.9, adult; F43.23 Adjustment disorder with mixed anxiety and depressed mood; K31.84 Gastroparesis; M89.9 Disorder of bone, unspecified; Z79.4 Long term (current) use of insulin; K59.00 Constipation, unspecified; Z91.19 Patient's noncompliance with other medical treatment and regimen; Z91.14 Patient's other noncompliance with medication regimen; Z96.41 Presence of insulin pump (external) (internal); Z99.2 Dependence on renal dialysis

== ENCOUNTER 2018-03-31 18:42 | Emergency (ER) | payer MEDICAID ==
[2018-03-31 18:43] VITALS: BMI 29.2
[2018-03-31] MEDS ORDERED: Dextrose 50% SYRINGE Inj (50 ml) IVP ONE (19:11)
[2018-03-31 20:52] LABS: BASO # 0.1 K/uL (0.0-0.2); BASO % 0.9 % (0.0-2.0); EOS # 0.3 K/uL (0.0-0.7); EOS % 3.8 % (0.0-4.0); HEMOGLOBIN 9.1 g/dL (12.0-16.0); LYMPH # 1.8 K/uL (1.0-4.3); LYMPH % 20.9 % (20.0-40.0); MEAN CELL VOLUME 85.5 fl (81.0-99.0); MEAN CORPUSCULAR HEMOGLOBIN 27.9 pg (27.0-31.0); MEAN CORPUSCULAR HGB CONC 32.6 g/dL (33.0-37.0); MEAN PLATELET VOLUME 9.2 fl (7.2-11.7); MONO # 0.7 K/uL (0.0-0.8); MONO % 7.4 % (0.0-10.0); NEUT # 5.9 K/uL (1.8-7.0); NRBC % 0.1 % (0.0-0.0); RBC 3.26 Mil/uL (3.80-5.20); RED CELL DISTRIBUTION WIDTH 15.5 % (11.5-14.5); WHITE BLOOD COUNT 8.9 K/uL (4.8-10.8)
[2018-03-31 20:53] LABS: ABG ALLEN TEST YES; ARTERIAL BLOOD GAS HCO3 26.7 mmol/L (21-28); ARTERIAL BLOOD GAS PCO2 34 mm/Hg (35-45); ARTERIAL BLOOD GAS PH 7.48 (7.35-7.45); ARTERIAL BLOOD GAS PO2 121 mm/Hg (80-100); ARTERIAL BLOOD GAS TCO2 26.3 mmol/L (22-28)
[2018-03-31] MEDS ORDERED: Dextrose 50% SYRINGE Inj (50 ml) IVP STA (20:58)
[2018-03-31 21:07] LABS: ALBUMIN 2.9 g/dL (3.5-5.0); CALCIUM 8.5 mg/dL (8.4-10.2)
--- NOTE | 2018-03-31 21:25 | ED PDOC ---
HPI: Altered Mental Status Time Seen by Provider: 03/31/18 18:56 Chief Complaint (Nursing): Altered Mental Status Chief Complaint (Provider): Altered Mental Status History Per: Family (mother) Onset/Duration Of Symptoms: Days Description Of Symptoms: Unresponsive Exacerbating Factor(s): Diabetic Additional Complaint(s): Vi Motley is a 27 year old female with a past medical history of HTN, anemia, diabetes and depression, who presents to the emergency department complaining of hypoglycemia. Patient was at dialysis when she started to feel dizzy. She was told that her blood sugar was dropping and states that she does not remember a thing. As per mother, patient's blood sugar was dropping and she went unconscious. Patient was brought in by EMS, who pushed 2 amps of D50. Patient had x2 episodes of vomiting during resuscitation. Mother states that patient has been well lately and has had dialysis for the past x3 weeks. She was admitted last thursday and was discharged x2 days ago with similar presentation. Patient is now awake, alert and oriented with no episodes of vomiting while in the ED. PMD: Norris Camacho Jr. Past Medical History Reviewed: Historical Data, Nursing Documentation, Vital Signs - Medical History PMH: Anemia, Anxiety, Bronchitis, Depression, Diabetes, HTN, End Stage Renal Disease, Chronic Kidney Disease, Seizures (Pseudo seizures?) Denies: HIV - Surgical History Surgical History: Appendectomy, Endoscopy - Family History Family History: States: Unknown Family Hx - Immunization History Hx Tetanus Toxoid Vaccination: No Hx Influenza Vaccination: Yes Hx Pneumococcal Vaccination: Yes - Home Medications Home Medications: Ambulatory Orders Medication Instructions Recorded Pantoprazole [Protonix EC Tab] 40 mg PO DAILY #30 ect 01/04/18 Torsemide [Demadex] 5 mg PO DAILY 01/28/18 Calcitriol [Rocaltrol] 0.25 mcg PO MWF #6 sgl 03/09/18 Ergocalciferol [Drisdol 50,000 1 cap PO Q7D #2 cap 03/09/18 Intl Units Cap] Metoclopramide HCl [Reglan] 10 mg PO AC #52 tablet 03/09/18 cloNIDine 0.2 mg/24 hr 1 patch TD Q7D@1000 #2 patch 03/09/18 [catapres-TTS2 0.2 mg/24 hr] Ondansetron ODT [Zofran ODT] 4 mg PO Q8 PRN #10 odt 03/16/18 Carvedilol [Coreg] 12.5 mg PO Q12 03/26/18 HYDROmorphone [Dilaudid] 1 mg PO Q12 PRN 03/26/18 Insulin Glargine,Hum.rec.anlog 13 unit SC HS 03/26/18 [Basaglar Kwikpen U-100] Insulin Lispro [Admelog] 4 mg SC ACTID 03/26/18 Liraglutide [Victoza 2-Ángel] 0.6 mg SC DAILY 03/26/18 Sodium Bicarbonate Tab 650 mg PO Q12 03/26/18 amLODIPine [Norvasc] 5 mg PO DAILY 03/26/18 Losartan [Cozaar] 25 mg PO DAILY #30 tab 03/30/18 Mirtazapine [Remeron] 15 mg PO HS #30 tab 03/30/18 - Allergies Allergies/Adverse Reactions: Allergies Allergy/AdvReac Type Severity Reaction Status Date / Time No Known Allergies Allergy Verified 03/31/18 19:06 Review of Systems ROS Statement: Except As Marked, All Systems Reviewed And Found Negative Neurological: Positive for: Dizziness, Other (LOC) Physical Exam - Physical Exam Appears: Positive for: Non-toxic, No Acute Distress (Tired appearing) Head Exam: Positive for: ATRAUMATIC, NORMOCEPHALIC Skin: Positive for: Diaphoresis Eye Exam: Positive for: Normal appearance, EOMI, PERRL ENT: Positive for: Normal ENT Inspection Neck: Positive for: Painless ROM, Supple. Negative for: Normal (numerous scars along neck due to previous IV attempts) Cardiovascular/Chest: Positive for: Regular Rate, Rhythm. Negative for: Murmur Respiratory: Positive for: Normal Breath Sounds. Negative for: Respiratory Distress Gastrointestinal/Abdominal: Positive for: Normal Exam, Soft, Other (right dialysis port placed). Negative for: Tenderness Extremity: Positive for: Other (numerous scars along anterior arm due to previous IV; multiple bruises along both arms due to previous IV attempts ) Neurologic/Psych: Positive for: Alert, Oriented (x3) - Laboratory Results Result Diagrams: 03/31/18 20:48 03/31/18 20:48 Lab Results: pCO2 34 mm/Hg (35-45) L 03/31/18 20:45 pO2 121 mm/Hg (80-100) H 03/31/18 20:45 HCO3 26.7 mmol/L (21-28) 03/31/18 20:45 ABG pH 7.48 (7.35-7.45) H 03/31/18 20:45 ABG Total CO2 26.3 mmol/L (22-28) 03/31/18 20:45 ABG O2 Saturation 101.0 % (95-98) H 03/31/18 20:45 ABG Base Excess 2.2 mmol/L (-2.0-3.0) 03/31/18 20:45 José Miguel Test Yes 03/31/18 20:45 ABG Potassium 4.0 mmol/L (3.6-5.2) 03/31/18 20:45 A-a O2 Difference -14.0 mm/Hg 03/31/18 20:45 Sodium 130.0 mmol/L (132-148) L 03/31/18 20:45 Chloride 105.0 mmol/L (98-107) 03/31/18 20:45 Glucose 169 mg/dL (65-105) H 03/31/18 20:45 Lactate 0.9 mmol/L (0.7-2.1) 03/31/18 20:45 FiO2 21.0 % 03/31/18 20:45 Total Bilirubin 0.2 mg/dl (0.2-1.3) 03/31/18 20:48 AST 23 U/L (14-36) 03/31/18 20:48 ALT 24 U/L (9-52) 03/31/18 20:48 Alkaline Phosphatase 120 U/L (38-126) 03/31/18 20:48 Total Protein 5.8 G/DL (6.3-8.2) L 03/31/18 20:48 Albumin 2.9 g/dL (3.5-5.0) L 03/31/18 20:48 Globulin 2.9 gm/dL (2.2-3.9) 03/31/18 20:48 Albumin/Globulin Ratio 1.0 (1.0-2.1) 03/31/18 20:48 Medical Decision Making Medical Decision Making: Time: 1909 A/P: work up for hypoglycemia that resolved with 2 amps of IV fluids, vomiting, labs pending. Will give PO zofran and attempt ice chips and progress liquids as tolerated. Reassess patient. --Venous Blood Gas --CMP --CBC with differential --Glucose --Dextrose 50% INJ 50 ml IVP --UA Time: 2044 --ABG shock panel --Dextrose 50% INJ 50 ml IVP --Zofran ODT 4mg PO Time: 2244 --Patient's labs are at baseline with no signs of infections. Patient is tolerating PO with no pain or weakness. --Patient will follow up with PMD tomorrow. --Return parameters were discussed. - Scribe Attestation: Documented by Reji Oakes, acting as a scribe for Jackie Chris MD. Provider Scribe Attestation: All medical record entries made by the Scribe were at my direction and personally dictated by me. I have reviewed the chart and agree that the record accurately reflects my personal performance of the history, physical exam, medical decision making, and the department course for this patient. I have also personally directed, reviewed, and agree with the discharge instructions and disposition. Disposition - Clinical Impression Clinical Impression: Hypoglycemia - Disposition Disposition Time: 22:45 Condition: IMPROVED Additional Instructions: Follow up with primary medical doctor tomorrow. Return to the emergency department if symptoms worsen or if new symptoms develop. Instructions: Low Blood Sugar, Adult (DC), Low Blood Sugar in People With Diabetes Forms: [employer] (Kenyan) Print Language: [email or web address]
[2018-03-31 22:27] LABS: SQUAMOUS EPITHIAL 1 /hpf (0-5); URINE BACTERIA RARE (<OCC); URINE BILIRUBIN NEGATIVE (NEGATIVE); URINE BLOOD NEGATIVE (NEGATIVE); URINE CLARITY CLEAR (Clear); URINE COLOR STRAW (YELLOW); URINE GLUCOSE (UA) >=500 mg/dL (NEGATIVE); URINE LEUKOCYTE ESTERASE NEG Leu/uL (Negative); URINE PROTEIN 100 mg/dL (NEGATIVE); URINE UROBILINOGEN 0.2-1.0 mg/dL (0.2-1.0)
[2018-03-31 23:21] VITALS: BP 128/78; PULSE 88; RESP 18; O2SAT 97
== END 2018-03-31 23:22 | disposition home or self-care (01) ==
LOC: H.ER 18:42
DX: E11.22 Type 2 diabetes mellitus with diabetic chronic kidney disease (principal); E11.649 Type 2 diabetes mellitus with hypoglycemia without coma; D64.9 Anemia, unspecified; I12.0 Hypertensive chronic kidney disease with stage 5 chronic kidney disease or end stage renal disease; Z99.2 Dependence on renal dialysis; N18.6 End stage renal disease; Z79.4 Long term (current) use of insulin

== ENCOUNTER 2018-04-01 15:59 | Inpatient (IN) | payer MEDICAID ==
[2018-04-01] MEDS ORDERED: DiphenhydrAMINE 50 mg/ml Inj IVP STA ×2 (16:24→19:06)
[2018-04-01] MEDS ORDERED: Insulin Regular 100 units/ml SC STA ×2 (16:25→18:10)
[2018-04-01] MEDS ORDERED: hydrOXYzine HCl 50 mg/ml Inj IM STA (16:27)
[2018-04-01] MEDS ORDERED: Sodium Chloride 0.9% 250 ML IV STA (16:28)
[2018-04-01 16:35] LABS: VENOUS BLOOD GAS BASE EXCESS -7.3 mmol/L (0.0-2.0); VENOUS BLOOD GAS PCO2 35 mmHg (40-60); VENOUS BLOOD GAS PO2 41 mm/Hg (30-55); VENOUS BLOOD PH 7.32 (7.32-7.43)
[2018-04-01] MEDS ORDERED: Insulin Regular 100 units/ml IVP STA ×2 (16:37→18:11)
[2018-04-01] MEDS ORDERED: DiphenhydrAMINE 50 mg/ml Inj ONE (16:55)
[2018-04-01] MEDS ORDERED: Insulin Regular 100 units/ml ONE (16:56)
--- NOTE | 2018-04-01 17:00 | ED PDOC ---
Hyperglycemia/Hypoglycemia Time Seen by Provider: 04/01/18 16:05 Chief Complaint (Nursing): Altered Mental Status Chief Complaint (Provider): Hyperglycemia History Per: Patient History/Exam Limitations: no limitations : The patient does not have any of the infectious symptoms listed except for those marked. Additional Complaint(s): 28 year old female, with multiple medical problems including end stage renal disease on M/W/F dialysis, diabetes, and gastroparesis, was seen in this ER multiple times for gastroparesis and drug seeking behavior. Patient reports intractable vomiting and is yelling that she needs Ativan. Difficulty with obtaining history secondary to patient's agitation. PMD: Dr. Camacho Past Medical History Reviewed: Historical Data, Nursing Documentation, Vital Signs - Medical History PMH: Anemia, Anxiety, Bronchitis, Depression, Diabetes, HTN, End Stage Renal Disease, Chronic Kidney Disease, Seizures (Pseudo seizures?) Denies: HIV - Surgical History Surgical History: Appendectomy, Endoscopy - Family History Family History: States: Unknown Family Hx - Immunization History Hx Tetanus Toxoid Vaccination: No Hx Influenza Vaccination: Yes Hx Pneumococcal Vaccination: Yes - Home Medications Home Medications: Ambulatory Orders Medication Instructions Recorded RX: Pantoprazole [Protonix EC Tab] 40 mg PO DAILY #30 ect 01/04/18 RX: Torsemide [Demadex] 5 mg PO DAILY 01/28/18 RX: Calcitriol [Rocaltrol] 0.25 mcg PO MWF #6 sgl 03/09/18 RX: Ergocalciferol [Drisdol 50,000 1 cap PO Q7D #2 cap 03/09/18 Intl Units Cap] RX: Metoclopramide HCl [Reglan] 10 mg PO AC #52 tablet 03/09/18 RX: cloNIDine 0.2 mg/24 hr 1 patch TD Q7D@1000 #2 patch 03/09/18 [catapres-TTS2 0.2 mg/24 hr] RX: Carvedilol [Coreg] 12.5 mg PO Q12 03/26/18 RX: HYDROmorphone [Dilaudid] 1 mg PO Q12 PRN 03/26/18 RX: Insulin Glargine,Hum.rec.anlog 13 unit SC HS 03/26/18 [Basaglar Kwikpen U-100] RX: Insulin Lispro [Admelog] 4 mg SC ACTID 03/26/18 RX: Liraglutide [Victoza 2-Ángel] 0.6 mg SC DAILY 03/26/18 RX: Sodium Bicarbonate Tab 650 mg PO Q12 03/26/18 RX: amLODIPine [Norvasc] 5 mg PO DAILY 03/26/18 RX: Losartan [Cozaar] 25 mg PO DAILY #30 tab 03/30/18 RX: Mirtazapine [Remeron] 15 mg PO HS #30 tab 03/30/18 RX: Ondansetron ODT [Zofran ODT] 4 mg PO Q6 PRN #16 odt 03/31/18 - Allergies Allergies/Adverse Reactions: Allergies Allergy/AdvReac Type Severity Reaction Status Date / Time No Known Allergies Allergy Verified 03/31/18 19:06 Review of Systems Review Of Systems: ROS cannot be obtained secondary to pt's inabilty to answer questions. Physical Exam - Reviewed Nursing Documentation Reviewed: Yes Vital Signs Reviewed: Yes - Physical Exam Appears: Positive for: No Acute Distress (Yelling and agitated; only saying that she wants Ativan) Head Exam: Positive for: ATRAUMATIC, NORMOCEPHALIC Skin: Positive for: Warm, Dry Eye Exam: Positive for: EOMI, PERRL ENT: Positive for: Other (Dry mucuos membranes) Neck: Positive for: Painless ROM, Supple Cardiovascular/Chest: Positive for: Tachycardia (regular rhythm) Respiratory: Positive for: Normal Breath Sounds (Clear to auscultation). Negative for: Respiratory Distress Gastrointestinal/Abdominal: Positive for: Soft. Negative for: Tenderness Back: Positive for: Normal Inspection. Negative for: Decreased ROM Extremity: Positive for: Normal ROM. Negative for: Deformity Lymphatic: Negative for: Adenopathy Neurologic/Psych: Positive for: Alert, Mood/Affect (anxious). Negative for: Motor/Sensory Deficits - Laboratory Results Result Diagrams: 04/01/18 16:56 04/03/18 17:56 Lab Results: pO2 41 mm/Hg (30-55) 04/01/18 16:24 VBG pH 7.32 (7.32-7.43) 04/01/18 16:24 VBG pCO2 35 mmHg (40-60) L 04/01/18 16:24 VBG HCO3 18.9 mmol/L 04/01/18 16:24 VBG Total CO2 19.1 mmol/L (22-28) L 04/01/18 16:24 VBG O2 Sat (Calc) 83.0 % (40-65) H 04/01/18 16:24 VBG Base Excess -7.3 mmol/L (0.0-2.0) L 04/01/18 16:24 VBG Potassium 5.3 mmol/L (3.6-5.2) H 04/01/18 16:24 Sodium 132.0 mmol/L (132-148) 04/01/18 16:24 Chloride 97.0 mmol/L (98-107) L 04/01/18 16:24 Glucose > 750 mg/dL (65-105) H* D 04/01/18 16:24 Lactate 3.9 mmol/L (0.7-2.1) H 04/01/18 16:24 FiO2 21.0 % 04/01/18 16:24 - Progress ED Course And Treament: At bedside, on patient's arrival, 18 gauge IV placed in the left EJ. Labs obtained secondary to patient's very poor access. - Critical Care Total Time (In Min): 30 Medical Decision Making Medical Decision Making: Initial Impression: Hyperglycemia, gastroparesis, and drug seeking behavior Differential includes but not limited to DKA, electrolyte abnormality, d ehydration, and anxiety. Initial Plan: --Type and screen --VBG shock panel --ECG --CMP --Lipase stat --Magnesium stat --Phosphorus stat --Troponin stat --CBC --PTT --Prothrombin time --Chest X-ray --Atarax 50mg IM --Benadryl 25mg IV --Insulin 5 units IV --Sodium chloride 250mL IV --Pepcid 20mg IV --Reglan 10mg IV --Zofran 8mg IV 16:20 VBG demonstrates elevated lactic acid and severe hyperglycemia but no acidosis. IV fluid ordered. However, secondary to patient's renal disease, small bolus is given. 18:12 Labs consistent with hyperglycemia without acidosis and end stage renal disease. Discussed with Dr. Rg for admission. Minimally improved glucose level after additional insulin ordered. Patient is less agitated. 20:00 Pt continuing to yell for Ativan. Strong concern for drug dependence. Reviewed previous charts and pt successfully given Haldol in the past for agitation. Stephens ldol ordered. Scribe Attestation: Documented by Oscar Mcdonough acting as a scribe for Melissa Spencer MD. Provider Scribe Attestation: All medical record entries made by the Scribe were at my direction and personally dictated by me. I have reviewed the chart and agree that the record accurately reflects my personal performance of the history, physical exam, medical decision making, and the department course for this patient. I have also personally directed, reviewed, and agree with the discharge instructions and disposition. Disposition - Clinical Impression Clinical Impression: ESRD on hemodialysis, Gastroparesis, Pseudoseizure, Hyperglycemia - Disposition Disposition Time: 18:00 Condition: STABLE - Pt Status Changed To: Hospital Disposition Of: Inpatient - Admit Certification Admit to Inpatient:: After my assessment, the patient will require hospitalization for at least two midnights. This is because of the severity of symptoms shown, intensity of services needed, and/or the medical risk in this patient being treated as an outpatient. - POA Present On Arrival: Poor Glycemic Control
[2018-04-01 17:17] LABS: BASO % 0.5 % (0.0-2.0); EOS % 0.1 % (0.0-4.0); LYMPH # 0.6 K/uL (1.0-4.3); LYMPH % 6.3 % (20.0-40.0); MEAN CELL VOLUME 88.2 fl (81.0-99.0); MEAN CORPUSCULAR HEMOGLOBIN 27.9 pg (27.0-31.0); MEAN CORPUSCULAR HGB CONC 31.6 g/dL (33.0-37.0); MEAN PLATELET VOLUME 10.2 fl (7.2-11.7); MONO # 0.1 K/uL (0.0-0.8); MONO % 1.2 % (0.0-10.0); NEUT # 8.3 K/uL (1.8-7.0); NEUT % 91.9 % (50.0-75.0); PLATELET COUNT 450 K/uL (130-400); RBC 3.59 Mil/uL (3.80-5.20); RED CELL DISTRIBUTION WIDTH 15.6 % (11.5-14.5)
[2018-04-01 17:39] LABS: TROPONIN I 0.016 ng/mL (0.00-0.120)
[2018-04-01 17:44] LABS: INR 0.9; PROTHROMBIN TIME 10.7 Seconds (9.8-13.1)
[2018-04-01 17:47] LABS: PARTIAL THROMBOPLASTIN TIME 32.5 Seconds (25.6-37.1)
[2018-04-01 17:56] LABS: ALB/GLOB RATIO 1.2 (1.0-2.1); ALBUMIN 3.7 g/dL (3.5-5.0); CALCIUM 9.6 mg/dL (8.4-10.2)
--- NOTE | 2018-04-01 18:26 | RAD ---
HISTORY: vomiting COMPARISON: Chest x-ray performed 03/27/18 TECHNIQUE: Chest, one view. FINDINGS: Right IJ approach dialysis catheter with distal tips at the SVC/cavoatrial junction. LUNGS: No focal consolidation. Please note that chest x-ray has limited sensitivity for the detection of pulmonary masses. PLEURA: No significant pleural effusion identified. No definite pneumothorax . CARDIOVASCULAR: Heart size appears within normal limits. No significant atherosclerotic calcification present. OSSEOUS STRUCTURES: No acute osseous abnormality identified. VISUALIZED UPPER ABDOMEN: Unremarkable. OTHER FINDINGS: None. IMPRESSION: Right IJ approach dialysis catheter with distal tips at the SVC/cavoatrial junction.
[2018-04-01 20:21] LABS: ANISOCYTOSIS MODERATE; BANDS 3 % (0-2); EOSINOPHIL 1 % (0-7); LYMPHOCYTE 9 % (20-50); MICROCYTOSIS SLIGHT; MONOCYTE 2 % (0-10); NEUTROPHIL 85 % (42-75); PLATELET ESTIMATE NORMAL (NORMAL); POIKILOCYTOSIS SLIGHT; TOTAL CELLS COUNTED 100
[2018-04-01] MEDS: Insulin Regular 100 units/ml SC SCH (22:50)
[2018-04-01] MEDS: Ergocalciferol 50,000 Intl Units Cap PO SCH (23:19)
[2018-04-02] MEDS: Insulin Regular 100 units/ml SC SCH ×3 (06:45→17:16)
[2018-04-02] MEDS ORDERED: Dextrose 50% SYRINGE Inj (50 ml) IV PRN ×2 (07:50→09:10)
[2018-04-02] MEDS ORDERED: Glucagon Recombinant 1 mg Inj IM PRN ×2 (07:50→09:10)
--- NOTE | 2018-04-02 08:05 | CP.PCM.CON ---
History of Present Illness - History of Present Illness History of Present Illness: Psychiatry consult note Disk Operator evaluated patient on previous admissions (01/01/19, 01/12/19, 03/30/18) CC: Anxiety HPI: 27 yo female w/ DM, CKD, pseudoseizures, admitted w/ worsening diabetes, abdominal pain and vomiting. Patient denies acute worsening of depression. She does report feeling anxious, due to her pain and chronic medical issues. Patient was restarted on Remeron 3 days ago and reports compliance with the medication. She denies acute AH/VH/SI/HI. PPHx: History of treatment w/ Zoloft; started on Remeron on 03/30/18 PMHx: DM, CKD, pseudoseizures, gastroparesis ALL: NKDA MSE: A + O x 3, calm, minimally cooperative w/ interview, mood "anxious", affect- constricted, no AH/VH/SI/HI; thought process- linear/coherent, thought content- no delusions; fair I/J Impression: 27 yo female w/ adjustment disorder with mixed anxiety and depressed mood. -No acute psychiatric admission or 1:1 indicated -Continue Remeron to 15 mg PO HS -Can consider treatment for anxiety w/ Vistaril 50 mg PO Q8HR PRN anxiety or Ati van 0.5 mg PO/IV TID PRN anxiety or Q8Hr PRN anxiety Past Patient History - Infectious Disease Hx of Infectious Diseases: None - Past Medical History & Family History Past Medical History?: Yes - Past Social History Smoking Status: Never Smoked - CARDIAC Hx Cardiac Disorders: Yes Hx Hypertension: Yes - PULMONARY Hx Respiratory Disorders: Yes Hx Bronchitis: Yes - NEUROLOGICAL Hx Neurological Disorder: Yes Hx Seizures: Yes (Pseudo seizures?) - HEENT Hx HEENT Problems: Yes Hx Cataracts: Yes - RENAL Hx Chronic Kidney Disease: Yes - ENDOCRINE/METABOLIC Hx Endocrine Disorders: Yes Hx Diabetes Mellitus Type 2: Yes (on insulin pump) - HEMATOLOGICAL/ONCOLOGICAL Hx Blood Disorders: Yes Hx AIDS: No Hx Anemia: Yes Hx Human Immunodeficiency Virus (HIV): No - INTEGUMENTARY Hx Dermatological Problems: No - MUSCULOSKELETAL/RHEUMATOLOGICAL Hx Musculoskeletal Disorders: Yes Hx Falls: Yes - GASTROINTESTINAL Hx Gastrointestinal Disorders: Yes (SEE COMMENT) Other/Comment: gastroparesis - GENITOURINARY/GYNECOLOGICAL Hx Genitourinary Disorders: No - PSYCHIATRIC Hx Psychophysiologic Disorder: Yes Hx Anxiety: Yes Hx Depression: Yes Hx Substance Use: No - SURGICAL HISTORY Hx Surgeries: Yes Hx Appendectomy: Yes - ANESTHESIA Hx Anesthesia: Yes Hx Anesthesia Reactions: No Hx Malignant Hyperthermia: No Meds Allergies/Adverse Reactions: Allergies Allergy/AdvReac Type Severity Reaction Status Date / Time No Known Allergies Allergy Verified 03/31/18 19:06 - Medications Medications: Current Medications Amlodipine Besylate (Norvasc) 5 mg PO DAILY [facility] Calcitriol (Rocaltrol) 0.25 mcg PO MWF [facility] Carvedilol (Coreg) 12.5 mg PO Q12 [facility] Clonidine HCl (Catapres-Tts2 0.2 Mg/24 Hr) 1 patch TD Q7D@1000 [facility] Dextrose (Dextrose 50% Inj) 0 ml IV STAT PRN; Protocol PRN Reason: Hypoglycemia Protocol Dextrose (Glutose 15) 0 gm PO ONCE PRN; Protocol PRN Reason: Hypoglycemia Protocol Ergocalciferol (Drisdol 50,000 Intl Units Cap) 1 cap PO Q7D [facility] Last Admin: 04/01/18 23:19 Dose: Not Given Glucagon (Glucagen Diagnostic Kit) 0 mg IM STAT PRN; Protocol PRN Reason: Hypoglycemia Protocol Heparin Sodium (Porcine) (Heparin) 5,000 units SC Q8 [facility]; Protocol Last Admin: 04/02/18 01:00 Dose: Not Given Hydromorphone HCl (Dilaudid) 1 mg PO Q12 PRN PRN Reason: Pain, severe (8-10) Last Admin: 04/02/18 05:42 Dose: 1 mg Insulin Human Lispro (Humalog) 0 units SC [facility]; Protocol Insulin Human Regular (Humulin R) 0 units SC ACCU-CHECK [facility]; Protocol Last Admin: 04/02/18 06:45 Dose: 6 units Lorazepam (Ativan) 0.5 mg IVP Q8H PRN PRN Reason: Agitation Losartan Potassium (Cozaar) 25 mg PO DAILY [facility] Metoclopramide HCl (Reglan) 10 mg PO AC [facility] Mirtazapine (Remeron) 15 mg PO HS [facility] Ondansetron HCl (Zofran Odt) 4 mg PO Q6 PRN PRN Reason: Nausea/Vomiting Pantoprazole Sodium (Protonix Ec Tab) 40 mg PO DAILY [facility] Sodium Bicarbonate (Sodium Bicarbonate Tab) 650 mg PO Q12 [facility] Torsemide (Demadex) 5 mg PO DAILY [facility] Results - Vital Signs Recent Vital Signs: Last Vital Signs Temp 98.6 F 04/02/18 08:02 Pulse 95 H 04/02/18 08:02 Resp 18 04/02/18 08:02 BP 145/91 H 04/02/18 08:02 Pulse Ox 98 04/02/18 08:02 - Labs Result Diagrams: 04/01/18 16:56 04/01/18 16:56 Labs: Laboratory Results - last 24 hr 04/01/18 04/01/18 04/01/18 16:17 16:24 16:56 WBC 9.0 RBC 3.59 L Hgb 10.0 L Hct 31.6 L MCV 88.2 D MCH 27.9 MCHC 31.6 L RDW 15.6 H Plt Count 450 H MPV 10.2 Neut % (Auto) 91.9 H Lymph % (Auto) 6.3 L Hendry % (Auto) 1.2 Eos % (Auto) 0.1 Baso % (Auto) 0.5 Neut # (Auto) 8.3 H Lymph # (Auto) 0.6 L Hendry # (Auto) 0.1 Eos # (Auto) 0.0 Baso # (Auto) 0.0 Neutrophils % (Manual) 85 H Band Neutrophils % 3 H Lymphocytes % (Manual) 9 L Monocytes % (Manual) 2 Eosinophils % (Manual) 1 Platelet Estimate Normal Poikilocytosis (manual Slight Anisocytosis (manual) Moderate Microcytosis (manual) Slight PT INR APTT pO2 41 VBG pH 7.32 VBG pCO2 35 L VBG HCO3 18.9 VBG Total CO2 19.1 L VBG O2 Sat (Calc) 83.0 H VBG Base Excess -7.3 L VBG Potassium 5.3 H Sodium 132.0 Chloride 97.0 L Glucose > 750 H* D Lactate 3.9 H FiO2 21.0 Potassium Carbon Dioxide Anion Gap BUN Creatinine Est GFR ( Amer) Est GFR (Non-Af Amer) POC Glucose (mg/dL) > 500 H* Random Glucose Calcium Phosphorus Magnesium Total Bilirubin AST ALT Alkaline Phosphatase Troponin I Total Protein Albumin Globulin Albumin/Globulin Ratio Lipase Venous Blood Potassium 5.3 H Blood Type Antibody Screen BBK History Checked 04/01/18 04/01/18 04/01/18 16:56 16:56 18:00 WBC RBC Hgb Hct MCV MCH MCHC RDW Plt Count MPV Neut % (Auto) Lymph % (Auto) Hendry % (Auto) Eos % (Auto) Baso % (Auto) Neut # (Auto) Lymph # (Auto) Hendry # (Auto) Eos # (Auto) Baso # (Auto) Neutrophils % (Manual) Band Neutrophils % Lymphocytes % (Manual) Monocytes % (Manual) Eosinophils % (Manual) Platelet Estimate Poikilocytosis (manual Anisocytosis (manual) Microcytosis (manual) PT 10.7 INR 0.9 APTT 32.5 pO2 VBG pH VBG pCO2 VBG HCO3 VBG Total CO2 VBG O2 Sat (Calc) VBG Base Excess VBG Potassium Sodium 131 L Chloride 94 L Glucose Lactate FiO2 Potassium 4.8 Carbon Dioxide 16 L Anion Gap 26 H BUN 32 H Creatinine 4.1 H Est GFR ( Amer) 16 Est GFR (Non-Af Amer) 13 POC Glucose (mg/dL) Random Glucose 725 H* D Calcium 9.6 Phosphorus 5.0 H Magnesium 2.4 H Total Bilirubin 0.5 AST 20 ALT 29 Alkaline Phosphatase 160 H D Troponin I 0.0160 Total Protein 6.8 Albumin 3.7 Globulin 3.1 Albumin/Globulin Ratio 1.2 Lipase Venous Blood Potassium Blood Type O POSITIVE Antibody Screen Negative BBK History Checked Patient has bt 04/01/18 04/01/18 04/01/18 18:00 18:09 20:26 WBC RBC Hgb Hct MCV MCH MCHC RDW Plt Count MPV Neut % (Auto) Lymph % (Auto) Hendry % (Auto) Eos % (Auto) Baso % (Auto) Neut # (Auto) Lymph # (Auto) Hendry # (Auto) Eos # (Auto) Baso # (Auto) Neutrophils % (Manual) Band Neutrophils % Lymphocytes % (Manual) Monocytes % (Manual) Eosinophils % (Manual) Platelet Estimate Poikilocytosis (manual Anisocytosis (manual) Microcytosis (manual) PT INR APTT pO2 VBG pH VBG pCO2 VBG HCO3 VBG Total CO2 VBG O2 Sat (Calc) VBG Base Excess VBG Potassium Sodium Chloride Glucose Lactate FiO2 Potassium Carbon Dioxide Anion Gap BUN Creatinine Est GFR ( Amer) Est GFR (Non-Af Amer) POC Glucose (mg/dL) > 500 H* 248 H Random Glucose Calcium Phosphorus Magnesium Total Bilirubin AST ALT Alkaline Phosphatase Troponin I Total Protein Albumin Globulin Albumin/Globulin Ratio Lipase 53 Venous Blood Potassium Blood Type Antibody Screen BBK History Checked 04/02/18 05:30 WBC RBC Hgb Hct MCV MCH MCHC RDW Plt Count MPV Neut % (Auto) Lymph % (Auto) Hendry % (Auto) Eos % (Auto) Baso % (Auto) Neut # (Auto) Lymph # (Auto) Hendry # (Auto) Eos # (Auto) Baso # (Auto) Neutrophils % (Manual) Band Neutrophils % Lymphocytes % (Manual) Monocytes % (Manual) Eosinophils % (Manual) Platelet Estimate Poikilocytosis (manual Anisocytosis (manual) Microcytosis (manual) PT INR APTT pO2 VBG pH VBG pCO2 VBG HCO3 VBG Total CO2 VBG O2 Sat (Calc) VBG Base Excess VBG Potassium Sodium Chloride Glucose Lactate FiO2 Potassium Carbon Dioxide Anion Gap BUN Creatinine Est GFR ( Amer) Est GFR (Non-Af Amer) POC Glucose (mg/dL) 344 H Random Glucose Calcium Phosphorus Magnesium Total Bilirubin AST ALT Alkaline Phosphatase Troponin I Total Protein Albumin Globulin Albumin/Globulin Ratio Lipase Venous Blood Potassium Blood Type Antibody Screen BBK History Checked
--- NOTE | 2018-04-02 08:55 | CP.PCM.HP ---
<Nita Quispe - Last Filed: 04/02/18 11:01> History of Present Illness - History of Present Illness History of Present Illness: This is 28 y/o F with PMH of IDDM-I, severe gastroparesis, ESRD on HD admitted second time this week to [facility] for evaluation and treatment of chronic nausea, vomiting, abdominal discomfort and Anxiety. Patient was cleared and discharged home 2 days ago, reports same nausea, vomiting and anxiety after discharge which made her come to the ER twice after discharge. Patient reports non stop NBNB vomiting and nausea, requests for Ativan (drug seeking behavior). Patient is taking Remeron at home. Patient denies any dizziness, seizures, chest pain, SOB, or hematuria/hematochezia. PMD: Dr. Camacho Collections Curator: Dr. Loo Addiction Psychiatrist: Dr. Martines Endo: Dr. Charles Medication: Insulin pump for DM, Amlodipine, Metoclopramide daily PMHx: DM1, CKD on HD and gastroparesis PSHx: Insulin Pump FHx: + heart disease SHx: Denies smoking, alcohol, or drug use Present on Admission - Present on Admission Any Indicators Present on Admission: No History of Uncontrolled Diabetes: Yes Review of Systems - Constitutional Constitutional: absent: Excessive Sweating, Lethargy - EENT Eyes: absent: Blurred Vision Ears: absent: Decreased Hearing, Tinnitus, Dizziness Nose/Mouth/Throat: absent: Nasal Discharge, Nose Pain, Sore Throat - Cardiovascular Cardiovascular: absent: Chest Pain - Respiratory Respiratory: absent: Cough, Dyspnea - Gastrointestinal Gastrointestinal: Abdominal Pain, Bloating - Genitourinary Genitourinary: absent: Dysuria Past Patient History - Infectious Disease Hx of Infectious Diseases: None - Past Medical History & Family History Past Medical History?: Yes - Past Social History Smoking Status: Never Smoked - CARDIAC Hx Cardiac Disorders: Yes Hx Hypertension: Yes - PULMONARY Hx Respiratory Disorders: Yes Hx Bronchitis: Yes - NEUROLOGICAL Hx Neurological Disorder: Yes Hx Seizures: Yes (Pseudo seizures?) - HEENT Hx HEENT Problems: Yes Hx Cataracts: Yes - RENAL Hx Chronic Kidney Disease: Yes - ENDOCRINE/METABOLIC Hx Endocrine Disorders: Yes Hx Diabetes Mellitus Type 2: Yes (on insulin pump) - HEMATOLOGICAL/ONCOLOGICAL Hx Blood Disorders: Yes Hx AIDS: No Hx Anemia: Yes Hx Human Immunodeficiency Virus (HIV): No - INTEGUMENTARY Hx Dermatological Problems: No - MUSCULOSKELETAL/RHEUMATOLOGICAL Hx Musculoskeletal Disorders: Yes Hx Falls: Yes - GASTROINTESTINAL Hx Gastrointestinal Disorders: Yes (SEE COMMENT) Other/Comment: gastroparesis - GENITOURINARY/GYNECOLOGICAL Hx Genitourinary Disorders: No - PSYCHIATRIC Hx Psychophysiologic Disorder: Yes Hx Anxiety: Yes Hx Depression: Yes Hx Substance Use: No - SURGICAL HISTORY Hx Surgeries: Yes Hx Appendectomy: Yes - ANESTHESIA Hx Anesthesia: Yes Hx Anesthesia Reactions: No Hx Malignant Hyperthermia: No Meds Allergies/Adverse Reactions: Allergies Allergy/AdvReac Type Severity Reaction Status Date / Time No Known Allergies Allergy Verified 03/31/18 19:06 Physical Exam - Constitutional Appears: No Acute Distress - Head Exam Head Exam: NORMAL INSPECTION - Eye Exam Eye Exam: EOMI, Normal appearance, PERRL Pupil Exam: NORMAL ACCOMODATION, PERRL - ENT Exam ENT Exam: Mucous Membranes Moist - Neck Exam Neck exam: Positive for: Normal Inspection - Respiratory Exam Respiratory Exam: Clear to Auscultation Bilateral, NORMAL BREATHING PATTERN. absent: Wheezes, Respiratory Distress - Cardiovascular Exam Cardiovascular Exam: Tachycardia, REGULAR RHYTHM, +S1, +S2 - GI/Abdominal Exam GI & Abdominal Exam: Normal Bowel Sounds, Soft, Tenderness (Diffuse discomfort ) - Extremities Exam Extremities exam: Positive for: normal inspection - Back Exam Back exam: NORMAL INSPECTION - Neurological Exam Neurological exam: Alert, CN II-XII Intact, Normal Gait, Oriented x3 - Psychiatric Exam Psychiatric exam: Anxious - Skin Skin Exam: Normal Color Results - Vital Signs Recent Vital Signs: Last Vital Signs Temp 98.6 F 04/02/18 08:02 Pulse 95 H 04/02/18 08:02 Resp 18 04/02/18 08:02 BP 145/91 H 04/02/18 08:02 Pulse Ox 98 04/02/18 08:02 - Labs Result Diagrams: 04/01/18 16:56 04/01/18 16:56 Labs: Laboratory Results - last 24 hr 04/01/18 04/01/18 04/01/18 16:17 16:24 16:56 WBC 9.0 RBC 3.59 L Hgb 10.0 L Hct 31.6 L MCV 88.2 D MCH 27.9 MCHC 31.6 L RDW 15.6 H Plt Count 450 H MPV 10.2 Neut % (Auto) 91.9 H Lymph % (Auto) 6.3 L [place] % (Auto) 1.2 Eos % (Auto) 0.1 Baso % (Auto) 0.5 Neut # (Auto) 8.3 H Lymph # (Auto) 0.6 L [place] # (Auto) 0.1 Eos # (Auto) 0.0 Baso # (Auto) 0.0 Neutrophils % (Manual) 85 H Band Neutrophils % 3 H Lymphocytes % (Manual) 9 L Monocytes % (Manual) 2 Eosinophils % (Manual) 1 Platelet Estimate Normal Poikilocytosis (manual Slight Anisocytosis (manual) Moderate Microcytosis (manual) Slight PT INR APTT pO2 41 VBG pH 7.32 VBG pCO2 35 L VBG HCO3 18.9 VBG Total CO2 19.1 L VBG O2 Sat (Calc) 83.0 H VBG Base Excess -7.3 L VBG Potassium 5.3 H Sodium 132.0 Chloride 97.0 L Glucose > 750 H* D Lactate 3.9 H FiO2 21.0 Potassium Carbon Dioxide Anion Gap BUN Creatinine Est GFR ( Amer) Est GFR (Non-Af Amer) POC Glucose (mg/dL) > 500 H* Random Glucose Calcium Phosphorus Magnesium Total Bilirubin AST ALT Alkaline Phosphatase Troponin I Total Protein Albumin Globulin Albumin/Globulin Ratio Lipase Venous Blood Potassium 5.3 H Blood Type Antibody Screen BBK History Checked 04/01/18 04/01/18 04/01/18 16:56 16:56 18:00 WBC RBC Hgb Hct MCV MCH MCHC RDW Plt Count MPV Neut % (Auto) Lymph % (Auto) [place] % (Auto) Eos % (Auto) Baso % (Auto) Neut # (Auto) Lymph # (Auto) [place] # (Auto) Eos # (Auto) Baso # (Auto) Neutrophils % (Manual) Band Neutrophils % Lymphocytes % (Manual) Monocytes % (Manual) Eosinophils % (Manual) Platelet Estimate Poikilocytosis (manual Anisocytosis (manual) Microcytosis (manual) PT 10.7 INR 0.9 APTT 32.5 pO2 VBG pH VBG pCO2 VBG HCO3 VBG Total CO2 VBG O2 Sat (Calc) VBG Base Excess VBG Potassium Sodium 131 L Chloride 94 L Glucose Lactate FiO2 Potassium 4.8 Carbon Dioxide 16 L Anion Gap 26 H BUN 32 H Creatinine 4.1 H Est GFR ( Amer) 16 Est GFR (Non-Af Amer) 13 POC Glucose (mg/dL) Random Glucose 725 H* D Calcium 9.6 Phosphorus 5.0 H Magnesium 2.4 H Total Bilirubin 0.5 AST 20 ALT 29 Alkaline Phosphatase 160 H D Troponin I 0.0160 Total Protein 6.8 Albumin 3.7 Globulin 3.1 Albumin/Globulin Ratio 1.2 Lipase Venous Blood Potassium Blood Type O POSITIVE Antibody Screen Negative BBK History Checked Patient has bt 04/01/18 04/01/18 04/01/18 18:00 18:09 20:26 WBC RBC Hgb Hct MCV MCH MCHC RDW Plt Count MPV Neut % (Auto) Lymph % (Auto) [place] % (Auto) Eos % (Auto) Baso % (Auto) Neut # (Auto) Lymph # (Auto) [place] # (Auto) Eos # (Auto) Baso # (Auto) Neutrophils % (Manual) Band Neutrophils % Lymphocytes % (Manual) Monocytes % (Manual) Eosinophils % (Manual) Platelet Estimate Poikilocytosis (manual Anisocytosis (manual) Microcytosis (manual) PT INR APTT pO2 VBG pH VBG pCO2 VBG HCO3 VBG Total CO2 VBG O2 Sat (Calc) VBG Base Excess VBG Potassium Sodium Chloride Glucose Lactate FiO2 Potassium Carbon Dioxide Anion Gap BUN Creatinine Est GFR ( Amer) Est GFR (Non-Af Amer) POC Glucose (mg/dL) > 500 H* 248 H Random Glucose Calcium Phosphorus Magnesium Total Bilirubin AST ALT Alkaline Phosphatase Troponin I Total Protein Albumin Globulin Albumin/Globulin Ratio Lipase 53 Venous Blood Potassium Blood Type Antibody Screen BBK History Checked 04/02/18 05:30 WBC RBC Hgb Hct MCV MCH MCHC RDW Plt Count MPV Neut % (Auto) Lymph % (Auto) [place] % (Auto) Eos % (Auto) Baso % (Auto) Neut # (Auto) Lymph # (Auto) [place] # (Auto) Eos # (Auto) Baso # (Auto) Neutrophils % (Manual) Band Neutrophils % Lymphocytes % (Manual) Monocytes % (Manual) Eosinophils % (Manual) Platelet Estimate Poikilocytosis (manual Anisocytosis (manual) Microcytosis (manual) PT INR APTT pO2 VBG pH VBG pCO2 VBG HCO3 VBG Total CO2 VBG O2 Sat (Calc) VBG Base Excess VBG Potassium Sodium Chloride Glucose Lactate FiO2 Potassium Carbon Dioxide Anion Gap BUN Creatinine Est GFR ( Amer) Est GFR (Non-Af Amer) POC Glucose (mg/dL) 344 H Random Glucose Calcium Phosphorus Magnesium Total Bilirubin AST ALT Alkaline Phosphatase Troponin I Total Protein Albumin Globulin Albumin/Globulin Ratio Lipase Venous Blood Potassium Blood Type Antibody Screen BBK History Checked Assessment & Plan - Assessment and Plan (Free Text) Assessment: A/P: 28 y/o F admitted to [facility] for eval and treatment of Gastroparesis, Anxiety (Drug seeking behavior) and elevated blood sugar. - Consult GI, recommendations appreciated - Consult Neohro, F/u recommendations - C/w HD as RAISA on MWF - Consult Endocrine, Dr. Charles: recommendations appreciated, f/u further recs - C/w [id number] BID and Mod-Sliding scale, Hypoglycemic protocol, AccuCheck ACHS - Consult psych, recommendations appreciated - C/w Rameron and Ativan as ordered - Patient is NPO but drinking fluids in room, tolerating PO - C/w Pepcid, Zofran and Reglan as per GI - C/w home medications as ordered Patient seen and Case discussed with Dr. Bass <Shashi Bass - Last Filed: 04/04/18 20:34> Results - Vital Signs Recent Vital Signs: Last Vital Signs Temp 98.3 F 04/04/18 19:47 Pulse 92 H 04/04/18 19:47 Resp 17 04/04/18 19:47 BP 120/78 04/04/18 19:47 Pulse Ox 99 04/04/18 19:47 - Labs Result Diagrams: 04/01/18 16:56 04/03/18 17:56 Labs: Laboratory Results - last 24 hr 04/03/18 04/03/18 04/03/18 15:56 17:56 22:09 POC Glucose (mg/dL) 368 H 310 H Hemoglobin A1c 7.1 H 04/04/18 04/04/18 05:15 15:51 POC Glucose (mg/dL) 177 H 363 H Hemoglobin A1c Assessment & Plan - Assessment and Plan (Free Text) Plan: I was present during evaluation and discussed with Dr Jose Enrique garcia plans of care and mgt. Shashi Bass
[2018-04-02] MEDS: Pantoprazole 40 mg EC Tab PO SCH (09:33)
--- NOTE | 2018-04-02 10:13 | CARD ---
APPROVED REPORT Date of service: 04/01/2018 EKG Measurement Heart [id number] <Conclusion> Sinus tachycardia Otherwise normal ECG
[2018-04-02] MEDS: Insulin Detemir 100 Units/ml Inj SC SCH ×2 (10:15→17:18)
[2018-04-02] MEDS ORDERED: Sodium Chloride 0.45% 500 ML IV SCH (11:09)
[2018-04-02] MEDS ORDERED: POLYETHYLENE GLYCOL 3350 17 GM/Dose PACKET PO PRN (12:54)
[2018-04-02] MEDS: Insulin Lispro (humaLOG) 100 Units/ml Inj SC SCH ×3 (12:55→21:21)
--- NOTE | 2018-04-02 22:04 | CON ---
DATE: 04/02/2018 REFERRING DOCTOR: Garret Rg MD REASON FOR CONSULTATION: Coffee ground emesis and anemia. HISTORY OF PRESENT ILLNESS: This is a pleasant 28-year-old female who has history of severe gastroparesis, diabetes and she has been on dialysis. Just was discharged and readmitted for chief complaints of nausea, vomiting, abdominal pain. The patient's sugars were over 700. The patient is still having pain, nausea, vomiting, gastroparesis, bloating as well. Currently lying in bed, getting dialysis, in no apparent distress. PAST MEDICAL HISTORY: As above. PAST SURGICAL HISTORY: As above. MEDICATIONS: Reviewed. REVIEW OF SYSTEMS: All other systems have been reviewed and negative apart from the HPI. PHYSICAL EXAMINATION: VITAL SIGNS: Here in the hospital, grossly unremarkable. GENERAL: This is a pleasant young lady, lying in bed, comfortable, in no apparent distress. HEENT: Head: Normocephalic and atraumatic. Eyes: Pupils are equally reactive to light bilaterally. No conjunctival pallor or icterus. NECK: Supple. Normal range of motion. No lymphadenopathy appreciated. LUNGS: Coarse breath sounds bilaterally. HEART: S1 and S2. Regular rate and rhythm. ABDOMEN: Soft, and distended. Bowel sounds are present. Discomfort in all quadrants. No rebound. No guarding. RECTAL: Deferred. EXTREMITIES: Pulses felt bilaterally. SKIN: Warm, dry, and intact. NEUROLOGIC: A and O x3. LABORATORY DATA: Labs and radiology have been reviewed. WBC is 9.9, hemoglobin 10.9, hematocrit 31.6, platelet count is 415, neutrophils 91%. Glucose of over 715. Sodium 131. ASSESSMENT AND PLAN: This is a 28-year-old female with markedly elevated sugars, nausea, vomiting, abdominal pain. This is secondary to gastroparesis plus or minus the poor glycemic control. Dialysis as per Renal. Endocrinology input for sugar control. Nausea, vomiting as per Gastroenterology, Kelli Melissa, her usual regimen Pepcid as well. Advance diet as tolerated. Thank you for the consult. Kit Rodriguez MD/ PhD cc: Garrte Rg MD [facility] # [id number]
--- NOTE | 2018-04-03 00:56 | CON ---
DATE: 04/02/2018 ENDOCRINOLOGY CONSULT LOCATION: Room 413. HISTORY OF PRESENT ILLNESS: This is a 28-year-old female with recent uncontrolled type 1 insulin-dependent diabetes, using an insulin pump and presenting here with recurrent upper abdominal pain with episodic nausea and vomiting, anxiety and chemical dependence on narcotic analgesics for pain relief. PAST MEDICAL HISTORY: History of type 1 insulin-dependent diabetes on a [employer] insulin pump as noted; history of hypertension and dyslipidemia; history of diabetic retinopathy, polyneuropathy and nephropathy with end-stage renal disease and dialysis dependence; history of diabetic gastroparesis with multiple hospital readmissions for apparent exacerbations of abdominal pain and constant use and dependency on narcotic analgesics for pain relief. FAMILY HISTORY: Positive for hypertension and diabetes. SOCIAL HISTORY: The patient has a supportive family. No known substance use. REVIEW OF SYSTEMS: As mentioned above. Admits to generalized body weakness with episodic bouts of dizziness and lightheadedness, worse on the day of admission. No chest pains or palpitations. Her oral intake has been nil and suboptimal with supervening nausea, dyspepsia and vomiting episodes. Also admits to diffuse upper abdominal pain with no apparent relief on outpatient pain management. PHYSICAL EXAMINATION: GENERAL: This is an average-built female, in no apparent distress. VITAL SIGNS: Blood pressure of 150/90, pulse of 100 beats per minute and regular, temperature 98, respirations 20. Height is 5 feet 1 inch. Weight is 140 pounds. HEENT: Head: Normocephalic. Eyes: Anicteric with pink conjunctivae. Funduscopy not possible at this time. Ears, nose and throat otherwise normal. NECK: Supple. Thyroid gland is normal in size. No carotid bruits or any cervical adenopathy. CARDIOPULMONARY: Some adynamic precordium. S1, S2, is rapid and regular. LUNGS: Clear to auscultation. ABDOMEN: Flat, soft with positive bowel sounds. EXTREMITIES: No peripheral edema. Pulses are +2 bilaterally. LABORATORY DATA: Her chemistries showed BUN of 32, sodium 131, potassium 4.8, chloride 94, CO2 16, glucose 725 and creatinine 4.1. Her glucose levels have ranged from 344 to over 500 mg/dL. ASSESSMENT: This is a 28-year-old female with uncontrolled and decompensated type 1 insulin-dependent diabetes presenting here with recurrent upper abdominal pain and diabetic gastroparesis, currently on a liquid diet as given and is now being referred for diabetic evaluation and management. She also has diabetic microvascular complications of retinopathy, polyneuropathy and nephropathy. PLAN OF MANAGEMENT: Discussed with the nurse practitioner today, we will initiate basal insulin with Levemir given as 20 units subcu every 12 hours at 10:00 a.m. and 10:00 p.m. daily as ordered. We will also continue the coverage scale using regular insulin at a medium algorithm as ordered. As she tolerates her food intake, then we will switch her over to a more physiologic basal and bolus insulin regimen as ordered. We will obtain serial chemistries and supplement accordingly as needed. We will continue the close glucose monitoring as ordered. We will follow and advise accordingly. Yamileth Charles MD
--- NOTE | 2018-04-03 04:40 | CON ---
DATE: 04/02/2018 NEPHROLOGY CONSULTATION HISTORY OF PRESENT ILLNESS: The patient is a 28-year-old female with past medical history of hypertension, diabetes with diabetic nephropathy and nephrotic syndrome, diabetic gastroparesis, pseudoseizures and ESRD, on hemodialysis (Thursday, Thursday, and Thursday at [facility] under our outpatient service) presented to ED with intractable vomiting and requesting Ativan. Nephrology being consulted for ESRD care. The patient has been having multiple ER visits and admissions with gastroparesis flares. However, has been having very erratic blood sugars lately; presented to ED two days ago after being found to have severe hypoglycemia during outpatient dialysis treatment with no improvement after being given sugary drinks. The patient was subsequently discharged from ED after treatment. The patient is reporting that she had not been able to hold on any food yesterday due to intractable vomiting; also complaining of abdominal pain; has been having anxiety issues and reportedly requesting Ativan. PAST MEDICAL HISTORY: As above with biopsy-proven diabetic nephropathy in 2017; status post left arm AV fistula creation last month and initiation of hemodialysis in late 02/2017 via right IJ tunneled catheter. FAMILY HISTORY: Heart disease. SOCIAL HISTORY: Nonsmoker. REVIEW OF SYSTEMS: CONSTITUTIONAL: Lethargy. HEENT: Blurred vision at times. CARDIOVASCULAR: Intermittently reports chest pain that she attributes to anxiety. RESPIRATORY: Dyspnea related to anxiety. GASTROINTESTINAL: As per HPI. Has not had bowel movement reportedly in weeks. GENITOURINARY: Decreased urination lately only one to two times per day. MUSCULOSKELETAL: No history of arthralgias or back pain. PSYCHIATRIC: History of pseudoseizures and anxiety issues. PHYSICAL EXAMINATION: GENERAL: No distress. Conversing coherently in full sentences. VITAL SIGNS: This afternoon, blood pressure 126/73, heart rate 83, respirations 18, temperature 98.2, O2 saturation 94% on room air. HEENT: Moist mucous membranes. No elevated JVD. Nonicteric. RESPIRATORY: Lungs clear to auscultation bilaterally. No rales, no rhonchi, no wheezes. CARDIOVASCULAR: Heart sounds S1 and S2 normal. No murmurs. No gallops. No rubs. GASTROINTESTINAL: Abdomen is soft and nondistended. GENITOURINARY: No overt bladder distention. EXTREMITIES: No lower leg edema. SKIN: Warm. No cyanosis. PSYCHIATRIC: Normal mood and normal affect. LABORATORY DATA: From yesterday, CBC; WBC 9.7, hemoglobin 10, hematocrit 31.6, and platelets 450. Chemistry panel: Sodium 131, potassium 4.9, chloride 94, bicarb 16. BUN 32, creatinine 4.1, glucose 725, calcium 9.6, phosphorous 5, magnesium 2.4, AST 20, ALT 29, albumin 3.7. Venous blood gas from yesterday, pH of 7.32, pCO2 of 35, lactate 3.9. Chest x-ray directly visualized, lungs clear. ASSESSMENT AND PLAN: 1. End-stage renal disease, on hemodialysis. The patient still has significant residual renal function, relatively stable electrolyte and volume status, dialyzing today per routine with low ultrafiltration goal as the patient may still be somewhat volume depleted from vomiting. 2. Hypertensive end-stage renal disease. Blood pressure relatively controlled on Coreg 12.5 mg b.i.d., losartan 25 mg daily, amlodipine 5 mg daily, clonidine 0.2 mg patch. Continue the same. 3. Anemia of chronic kidney disease. The patient likely has some hemoconcentration; otherwise is on long acting Epogen as outpatient, we will monitor. 4. Diabetic gastroparesis. The patient with very erratic blood sugars with severe hyperglycemia and severe hypoglycemia at times, needs endocrine followup. Agree with Reglan with meals but we will decrease dose to 5 mg for end-stage renal disease. 5. Chronic kidney disease, mineral bone disorder. Continue with calcitriol on dialysis days. No need for phosphorus binders for now. Thank you for this referral. We will be following closely. Musa Martines MD
[2018-04-03] MEDS: Insulin Lispro (humaLOG) 100 Units/ml Inj SC SCH ×4 (09:22→22:12)
[2018-04-03] MEDS: Pantoprazole 40 mg EC Tab PO SCH ×2 (09:23→14:12)
[2018-04-03] MEDS: Insulin Detemir 100 Units/ml Inj SC SCH ×2 (11:04→17:06)
[2018-04-03 18:19] LABS: ALB/GLOB RATIO 1.1 (1.0-2.1); ALBUMIN 2.9 g/dL (3.5-5.0); CALCIUM 8.6 mg/dL (8.4-10.2)
--- NOTE | 2018-04-03 19:55 | CP.PCM.PN ---
Subjective - Date & Time of Evaluation Date of Evaluation: 04/03/18 Time of Evaluation: 19:00 - Subjective Subjective: Patient reports vomiting this morning, not lately, able to hold down liquids; breathing ok; is ambulating; Objective - Vital Signs/Intake and Output Vital Signs (last 24 hours): Temp Pulse Resp BP Pulse Ox 98.5 F 86 18 160/91 H 98 04/03/18 19:18 04/03/18 19:18 04/03/18 19:18 04/03/18 19:18 04/03/18 19:18 - Medications Medications: Current Medications Amlodipine Besylate (Norvasc) 5 mg PO DAILY [facility] Last Admin: 04/03/18 16:54 Dose: Not Given Calcitriol (Rocaltrol) 0.25 mcg PO MWF [facility] Last Admin: 04/02/18 09:32 Dose: 0.25 mcg Carvedilol (Coreg) 12.5 mg PO Q12 [facility] Last Admin: 04/03/18 16:53 Dose: Not Given Clonidine HCl (Catapres-Tts2 0.2 Mg/24 Hr) 1 patch TD Q7D@1000 [facility] Dextrose (Dextrose 50% Inj) 0 ml IV STAT PRN; Protocol PRN Reason: Hypoglycemia Protocol Dextrose (Glutose 15) 0 gm PO ONCE PRN; Protocol PRN Reason: Hypoglycemia Protocol Dextrose (Dextrose 50% Inj) 0 ml IV STAT PRN; Protocol PRN Reason: Hypoglycemia Protocol Dextrose (Glutose 15) 0 gm PO ONCE PRN; Protocol PRN Reason: Hypoglycemia Protocol Ergocalciferol (Drisdol 50,000 Intl Units Cap) 1 cap PO Q7D [facility] Last Admin: 04/01/18 23:19 Dose: Not Given Glucagon (Glucagen Diagnostic Kit) 0 mg IM STAT PRN; Protocol PRN Reason: Hypoglycemia Protocol Glucagon (Glucagen Diagnostic Kit) 0 mg IM STAT PRN; Protocol PRN Reason: Hypoglycemia Protocol Heparin Sodium (Porcine) (Heparin) 5,000 units SC Q8 [facility]; Protocol Last Admin: 04/03/18 17:07 Dose: 5,000 units Hydromorphone HCl (Dilaudid) 1 mg IVP Q12 PRN PRN Reason: Pain, severe (8-10) Last Admin: 04/03/18 10:03 Dose: 1 mg Insulin Detemir (Levemir) 10 units SC BID [facility] Last Admin: 04/03/18 17:06 Dose: 10 units Insulin Human Lispro (Humalog) 0 units SC ACHS [facility] Last Admin: 04/03/18 17:07 Dose: 4 units Lorazepam (Ativan) 0.5 mg IVP Q8H PRN PRN Reason: Agitation Last Admin: 04/03/18 12:46 Dose: 0.5 mg Losartan Potassium (Cozaar) 25 mg PO DAILY [facility] Last Admin: 04/03/18 16:53 Dose: Not Given Metoclopramide HCl (Reglan) 5 mg PO AC [facility] Last Admin: 04/03/18 12:05 Dose: Not Given Metoclopramide HCl (Reglan) 10 mg IVP Q8H [facility] Stop: 04/04/18 04:16 Last Admin: 04/03/18 12:46 Dose: 10 mg Mirtazapine (Remeron) 15 mg PO HS [facility] Last Admin: 04/02/18 21:23 Dose: 15 mg Ondansetron HCl (Zofran Odt) 4 mg PO Q6 PRN PRN Reason: Nausea/Vomiting Last Admin: 04/03/18 09:26 Dose: 4 mg Ondansetron HCl (Zofran Inj) 4 mg IVP Q6 PRN PRN Reason: Nausea/Vomiting Pantoprazole Sodium (Protonix Ec Tab) 40 mg PO DAILY [facility] Last Admin: 04/03/18 14:12 Dose: Not Given Polyethylene Glycol (Miralax) 17 gm PO DAILY PRN PRN Reason: Constipation Torsemide (Demadex) 5 mg PO DAILY [facility] Last Admin: 04/03/18 16:54 Dose: Not Given - Labs Labs: 04/01/18 16:56 04/03/18 17:56 PT 10.7 Seconds (9.8-13.1) 04/01/18 16:56 INR 0.9 04/01/18 16:56 APTT 32.5 Seconds (25.6-37.1) 04/01/18 16:56 - Constitutional Appears: Non-toxic, No Acute Distress - Eye Exam Eye Exam: Normal appearance - Respiratory Exam Respiratory Exam: Clear to Ausculation Bilateral. absent: Respiratory Distress - Cardiovascular Exam Cardiovascular Exam: RRR, +S1, +S2 - GI/Abdominal Exam GI & Abdominal Exam: Soft. absent: Distended - Extremities Exam Additional comments: no leg edema - Neurological Exam Neurological Exam: Alert, Awake - Psychiatric Exam Psychiatric exam: Normal Affect, Normal Mood. absent: Agitated - Skin Skin Exam: Warm. absent: Cyanosis Assessment and Plan (1) ESRD on hemodialysis Assessment & Plan: Stable volume status on exam; metabolic acidosis noted, improved; hyponatremia partly due to hyperglycemia; next HD for Thursday per routine (as outpatient if discharged); -avoid nephrotoxic agents in new HD patient who still has significant residual renal function; Status: Chronic (2) Hypertensive CKD, ESRD on dialysis Assessment & Plan: BP elevated after patient reportedly refused meds earlier in the day; will keep on same meds; Status: Acute (3) Anemia in CKD (chronic kidney disease) Assessment & Plan: Hgb just at goal (10-11g), will continue with long acting EPO formulation as outpatient; Status: Chronic (4) Chronic kidney disease-mineral and bone disorder Assessment & Plan: Continue calcitriol 0.25 mcg on MWF; Status: Chronic (5) Diabetic gastroparesis Assessment & Plan: Recurrent flares with erratic sugars; diet discussed with patient; should go back on insulin pump; -need to dose-reduce reglan for renal failure (no more than 5 mg); Status: Chronic
[2018-04-04] MEDS: Pantoprazole 40 mg EC Tab PO SCH (08:46)
[2018-04-04] MEDS: Insulin Detemir 100 Units/ml Inj SC SCH ×2 (08:47→22:51)
[2018-04-04] MEDS: Insulin Lispro (humaLOG) 100 Units/ml Inj SC SCH ×5 (08:48→22:49)
--- NOTE | 2018-04-04 12:48 | CP.PCM.PN ---
Subjective - Date & Time of Evaluation Date of Evaluation: 04/04/18 Time of Evaluation: 12:47 - Subjective Subjective: feeling somewhat better and tolerated breakfast minimal abd pain PE: vss afebrile abd - soft with +BS imp/plan: known h/o gastroparesis continue daily PPI continue IV reglan at 5mg q 8hours for now Objective - Vital Signs/Intake and Output Vital Signs (last 24 hours): Temp Pulse Resp BP Pulse Ox 98.1 F 85 18 149/97 H 98 04/04/18 08:01 04/04/18 08:46 04/04/18 08:01 04/04/18 08:46 04/04/18 08:01 - Medications Medications: Current Medications Amlodipine Besylate (Norvasc) 5 mg PO DAILY [facility] Last Admin: 04/04/18 08:46 Dose: 5 mg Calcitriol (Rocaltrol) 0.25 mcg PO MWF [facility] Last Admin: 04/02/18 09:32 Dose: 0.25 mcg Carvedilol (Coreg) 12.5 mg PO Q12 [facility] Last Admin: 04/04/18 08:45 Dose: 12.5 mg Clonidine HCl (Catapres-Tts2 0.2 Mg/24 Hr) 1 patch TD Q7D@1000 [facility] Dextrose (Dextrose 50% Inj) 0 ml IV STAT PRN; Protocol PRN Reason: Hypoglycemia Protocol Dextrose (Glutose 15) 0 gm PO ONCE PRN; Protocol PRN Reason: Hypoglycemia Protocol Dextrose (Dextrose 50% Inj) 0 ml IV STAT PRN; Protocol PRN Reason: Hypoglycemia Protocol Dextrose (Glutose 15) 0 gm PO ONCE PRN; Protocol PRN Reason: Hypoglycemia Protocol Ergocalciferol (Drisdol 50,000 Intl Units Cap) 1 cap PO Q7D [facility] Last Admin: 04/01/18 23:19 Dose: Not Given Glucagon (Glucagen Diagnostic Kit) 0 mg IM STAT PRN; Protocol PRN Reason: Hypoglycemia Protocol Glucagon (Glucagen Diagnostic Kit) 0 mg IM STAT PRN; Protocol PRN Reason: Hypoglycemia Protocol Heparin Sodium (Porcine) (Heparin) 5,000 units SC Q8 [facility]; Protocol Last Admin: 04/04/18 08:45 Dose: 5,000 units Hydromorphone HCl (Dilaudid) 1 mg IVP Q12 PRN PRN Reason: Pain, severe (8-10) Last Admin: 04/03/18 23:20 Dose: 1 mg Insulin Detemir (Levemir) 10 units SC BID [facility] Last Admin: 04/04/18 08:47 Dose: 10 units Insulin Human Lispro (Humalog) 0 units SC ACHS [facility] Last Admin: 04/04/18 12:26 Dose: 4 units Lorazepam (Ativan) 0.5 mg IVP Q8H PRN PRN Reason: Agitation Last Admin: 04/03/18 22:34 Dose: 0.5 mg Losartan Potassium (Cozaar) 25 mg PO DAILY [facility] Last Admin: 04/04/18 08:46 Dose: 25 mg Metoclopramide HCl (Reglan) 5 mg PO AC [facility] Last Admin: 04/03/18 12:05 Dose: Not Given Metoclopramide HCl (Reglan) 5 mg IVP Q8 [facility] Mirtazapine (Remeron) 15 mg PO HS [facility] Last Admin: 04/03/18 23:26 Dose: 15 mg Ondansetron HCl (Zofran Odt) 4 mg PO Q6 PRN PRN Reason: Nausea/Vomiting Last Admin: 04/03/18 09:26 Dose: 4 mg Ondansetron HCl (Zofran Inj) 4 mg IVP Q6 PRN PRN Reason: Nausea/Vomiting Last Admin: 04/04/18 06:59 Dose: 4 mg Pantoprazole Sodium (Protonix Ec Tab) 40 mg PO DAILY [facility] Last Admin: 04/04/18 08:46 Dose: 40 mg Polyethylene Glycol (Miralax) 17 gm PO DAILY PRN PRN Reason: Constipation Torsemide (Demadex) 5 mg PO DAILY [facility] Last Admin: 04/04/18 08:46 Dose: 5 mg - Labs Labs: 04/01/18 16:56 04/03/18 17:56 PT 10.7 Seconds (9.8-13.1) 04/01/18 16:56 INR 0.9 04/01/18 16:56 APTT 32.5 Seconds (25.6-37.1) 04/01/18 16:56
--- NOTE | 2018-04-04 17:14 | PN ---
DATE: 04/04/2018 ENDO FOLLOWUP NOTE. LOCATION: Room 413. SUBJECTIVE: This is a 28-year-old female with recent uncontrolled type 1 insulin-dependent diabetes, now being followed closely for metabolic management. Her glycemic levels are fluctuating with the diet being advanced to solid food as noted yesterday. LABORATORY DATA: Her glucose levels have ranged from 177 to 310 and 368 mg/dL. Her chemistry showed a BUN of 24, sodium 129, potassium 4.7, chloride 95, CO2 19, glucose 444 and creatinine 4.4. Her A1c is 7.1%. ASSESSMENT AND PLAN: So at this time, we will modify once again her current insulin regimen and switch her over now to a more physiologic basal and bolus insulin drug combination as ordered. We will start Humalog given as 6 units t.i.d. before meals to start today as ordered. We will also add basal insulin with Levemir given as 20 units subcu at bedtime daily as given. We will modify the coverage scale to obviate hypoglycemia and detailed orders have been given. We will follow and advise accordingly. Yamileth Charles MD
--- NOTE | 2018-04-04 20:39 | CP.PCM.PN ---
Subjective - Date & Time of Evaluation Date of Evaluation: 04/03/18 Time of Evaluation: 17:00 - Subjective Subjective: Patient had another episode of nausea and small amount of vomiting in the morning but tolerated liquids during the day She ask for pain meds a lot. Has no fever Has no abd pain. Objective - Vital Signs/Intake and Output Vital Signs (last 24 hours): Temp Pulse Resp BP Pulse Ox 98.3 F 92 H 17 120/78 99 04/04/18 19:47 04/04/18 19:47 04/04/18 19:47 04/04/18 19:47 04/04/18 19:47 - Medications Medications: Current Medications Amlodipine Besylate (Norvasc) 5 mg PO DAILY [facility] Last Admin: 04/04/18 08:46 Dose: 5 mg Calcitriol (Rocaltrol) 0.25 mcg PO MWF [facility] Last Admin: 04/02/18 09:32 Dose: 0.25 mcg Carvedilol (Coreg) 12.5 mg PO Q12 [facility] Last Admin: 04/04/18 08:45 Dose: 12.5 mg Clonidine HCl (Catapres-Tts2 0.2 Mg/24 Hr) 1 patch TD Q7D@1000 [facility] Dextrose (Dextrose 50% Inj) 0 ml IV STAT PRN; Protocol PRN Reason: Hypoglycemia Protocol Dextrose (Glutose 15) 0 gm PO ONCE PRN; Protocol PRN Reason: Hypoglycemia Protocol Dextrose (Dextrose 50% Inj) 0 ml IV STAT PRN; Protocol PRN Reason: Hypoglycemia Protocol Dextrose (Glutose 15) 0 gm PO ONCE PRN; Protocol PRN Reason: Hypoglycemia Protocol Ergocalciferol (Drisdol 50,000 Intl Units Cap) 1 cap PO Q7D [facility] Last Admin: 04/01/18 23:19 Dose: Not Given Glucagon (Glucagen Diagnostic Kit) 0 mg IM STAT PRN; Protocol PRN Reason: Hypoglycemia Protocol Glucagon (Glucagen Diagnostic Kit) 0 mg IM STAT PRN; Protocol PRN Reason: Hypoglycemia Protocol Heparin Sodium (Porcine) (Heparin) 5,000 units SC Q8 [facility]; Protocol Last Admin: 04/04/18 17:07 Dose: 5,000 units Hydromorphone HCl (Dilaudid) 2 mg PO Q12 PRN PRN Reason: Pain, severe (8-10) Last Admin: 04/04/18 13:22 Dose: 2 mg Insulin Detemir (Levemir) 20 units SC HS [facility] Insulin Human Lispro (Humalog) 0 units SC ACHS [facility] Last Admin: 04/04/18 17:07 Dose: 4 units Insulin Human Lispro (Humalog) 6 units SC AC [facility] Last Admin: 04/04/18 17:07 Dose: 6 u Lorazepam (Ativan) 0.5 mg IVP Q8H PRN PRN Reason: Agitation Last Admin: 04/03/18 22:34 Dose: 0.5 mg Losartan Potassium (Cozaar) 25 mg PO DAILY [facility] Last Admin: 04/04/18 08:46 Dose: 25 mg Metoclopramide HCl (Reglan) 5 mg PO AC [facility] Last Admin: 04/03/18 12:05 Dose: Not Given Metoclopramide HCl (Reglan) 5 mg IVP Q8 [facility] Last Admin: 04/04/18 17:10 Dose: 5 mg Mirtazapine (Remeron) 15 mg PO [facility] Last Admin: 04/03/18 23:26 Dose: 15 mg Ondansetron HCl (Zofran Odt) 4 mg PO Q6 PRN PRN Reason: Nausea/Vomiting Last Admin: 04/03/18 09:26 Dose: 4 mg Ondansetron HCl (Zofran Inj) 4 mg IVP Q6 PRN PRN Reason: Nausea/Vomiting Last Admin: 04/04/18 06:59 Dose: 4 mg Pantoprazole Sodium (Protonix Ec Tab) 40 mg PO DAILY [facility] Last Admin: 04/04/18 08:46 Dose: 40 mg Polyethylene Glycol (Miralax) 17 gm PO DAILY PRN PRN Reason: Constipation Torsemide (Demadex) 5 mg PO DAILY [facility] Last Admin: 04/04/18 08:46 Dose: 5 mg - Labs Labs: 04/01/18 16:56 04/03/18 17:56 PT 10.7 Seconds (9.8-13.1) 04/01/18 16:56 INR 0.9 04/01/18 16:56 APTT 32.5 Seconds (25.6-37.1) 04/01/18 16:56 - Head Exam Head Exam: NORMAL INSPECTION - Eye Exam Eye Exam: Normal appearance - ENT Exam ENT Exam: Mucous Membranes Moist - Respiratory Exam Respiratory Exam: Clear to Ausculation Bilateral - Cardiovascular Exam Cardiovascular Exam: REGULAR RHYTHM - GI/Abdominal Exam GI & Abdominal Exam: Normal Bowel Sounds - Neurological Exam Neurological Exam: Awake Assessment and Plan (1) Gastroparesis Status: Acute (2) ESRD on hemodialysis Status: Chronic (3) Gastritis Status: Acute (4) Uncontrolled diabetes mellitus Status: Chronic - Assessment and Plan (Free Text) Plan: Cont meds Cont tx Cont antacid Reglan
--- NOTE | 2018-04-04 20:46 | CP.PCM.PN ---
Subjective - Date & Time of Evaluation Date of Evaluation: 04/04/18 Time of Evaluation: 15:00 - Subjective Subjective: Patient is doing better Has no vomiting and tolerating meals well. Has no fever. Objective - Vital Signs/Intake and Output Vital Signs (last 24 hours): Temp Pulse Resp BP Pulse Ox 98.3 F 92 H 17 120/78 99 04/04/18 19:47 04/04/18 19:47 04/04/18 19:47 04/04/18 19:47 04/04/18 19:47 - Medications Medications: Current Medications Amlodipine Besylate (Norvasc) 5 mg PO DAILY [facility] Last Admin: 04/04/18 08:46 Dose: 5 mg Calcitriol (Rocaltrol) 0.25 mcg PO MWF [facility] Last Admin: 04/02/18 09:32 Dose: 0.25 mcg Carvedilol (Coreg) 12.5 mg PO Q12 [facility] Last Admin: 04/04/18 08:45 Dose: 12.5 mg Clonidine HCl (Catapres-Tts2 0.2 Mg/24 Hr) 1 patch TD Q7D@1000 [facility] Dextrose (Dextrose 50% Inj) 0 ml IV STAT PRN; Protocol PRN Reason: Hypoglycemia Protocol Dextrose (Glutose 15) 0 gm PO ONCE PRN; Protocol PRN Reason: Hypoglycemia Protocol Dextrose (Dextrose 50% Inj) 0 ml IV STAT PRN; Protocol PRN Reason: Hypoglycemia Protocol Dextrose (Glutose 15) 0 gm PO ONCE PRN; Protocol PRN Reason: Hypoglycemia Protocol Ergocalciferol (Drisdol 50,000 Intl Units Cap) 1 cap PO Q7D [facility] Last Admin: 04/01/18 23:19 Dose: Not Given Glucagon (Glucagen Diagnostic Kit) 0 mg IM STAT PRN; Protocol PRN Reason: Hypoglycemia Protocol Glucagon (Glucagen Diagnostic Kit) 0 mg IM STAT PRN; Protocol PRN Reason: Hypoglycemia Protocol Heparin Sodium (Porcine) (Heparin) 5,000 units SC Q8 [facility]; Protocol Last Admin: 04/04/18 17:07 Dose: 5,000 units Hydromorphone HCl (Dilaudid) 2 mg PO Q12 PRN PRN Reason: Pain, severe (8-10) Last Admin: 04/04/18 13:22 Dose: 2 mg Insulin Detemir (Levemir) 20 units SC HS [facility] Insulin Human Lispro (Humalog) 0 units SC ACHS [facility] Last Admin: 04/04/18 17:07 Dose: 4 units Insulin Human Lispro (Humalog) 6 units SC AC [facility] Last Admin: 04/04/18 17:07 Dose: 6 u Lorazepam (Ativan) 0.5 mg IVP Q8H PRN PRN Reason: Agitation Last Admin: 04/03/18 22:34 Dose: 0.5 mg Losartan Potassium (Cozaar) 25 mg PO DAILY [facility] Last Admin: 04/04/18 08:46 Dose: 25 mg Metoclopramide HCl (Reglan) 5 mg PO AC [facility] Last Admin: 04/03/18 12:05 Dose: Not Given Metoclopramide HCl (Reglan) 5 mg IVP Q8 [facility] Last Admin: 04/04/18 17:10 Dose: 5 mg Mirtazapine (Remeron) 15 mg PO HS [facility] Last Admin: 04/03/18 23:26 Dose: 15 mg Ondansetron HCl (Zofran Odt) 4 mg PO Q6 PRN PRN Reason: Nausea/Vomiting Last Admin: 04/03/18 09:26 Dose: 4 mg Ondansetron HCl (Zofran Inj) 4 mg IVP Q6 PRN PRN Reason: Nausea/Vomiting Last Admin: 04/04/18 06:59 Dose: 4 mg Pantoprazole Sodium (Protonix Ec Tab) 40 mg PO DAILY [facility] Last Admin: 04/04/18 08:46 Dose: 40 mg Polyethylene Glycol (Miralax) 17 gm PO DAILY PRN PRN Reason: Constipation Torsemide (Demadex) 5 mg PO DAILY [facility] Last Admin: 04/04/18 08:46 Dose: 5 mg - Labs Labs: 04/01/18 16:56 04/03/18 17:56 PT 10.7 Seconds (9.8-13.1) 04/01/18 16:56 INR 0.9 04/01/18 16:56 APTT 32.5 Seconds (25.6-37.1) 04/01/18 16:56 - Head Exam Head Exam: NORMAL INSPECTION - ENT Exam ENT Exam: Mucous Membranes Moist - Respiratory Exam Respiratory Exam: Clear to Ausculation Bilateral - GI/Abdominal Exam GI & Abdominal Exam: Normal Bowel Sounds - Neurological Exam Neurological Exam: Awake Assessment and Plan (1) Gastroparesis Status: Acute (2) ESRD on hemodialysis Status: Chronic (3) Gastritis Status: Acute (4) Uncontrolled diabetes mellitus Status: Chronic - Assessment and Plan (Free Text) Plan: Cont meds Con ttx Cont meds dc iv pain cont tx DC plans for am.
--- NOTE | 2018-04-04 23:15 | CP.PCM.PN ---
Subjective - Date & Time of Evaluation Date of Evaluation: 04/04/18 Time of Evaluation: 12:30 - Subjective Subjective: Vomiting improved; ate sandwich earlier today; now with abd pain, asking for pain med; Objective - Vital Signs/Intake and Output Vital Signs (last 24 hours): Temp Pulse Resp BP Pulse Ox 98.3 F 88 17 120/78 99 04/04/18 19:47 04/04/18 21:30 04/04/18 19:47 04/04/18 19:47 04/04/18 19:47 - Medications Medications: Current Medications Amlodipine Besylate (Norvasc) 5 mg PO DAILY [facility] Last Admin: 04/04/18 08:46 Dose: 5 mg Calcitriol (Rocaltrol) 0.25 mcg PO MWF [facility] Last Admin: 04/02/18 09:32 Dose: 0.25 mcg Carvedilol (Coreg) 12.5 mg PO Q12 [facility] Last Admin: 04/04/18 21:30 Dose: 12.5 mg Clonidine HCl (Catapres-Tts2 0.2 Mg/24 Hr) 1 patch TD Q7D@1000 [facility] Dextrose (Dextrose 50% Inj) 0 ml IV STAT PRN; Protocol PRN Reason: Hypoglycemia Protocol Dextrose (Glutose 15) 0 gm PO ONCE PRN; Protocol PRN Reason: Hypoglycemia Protocol Dextrose (Dextrose 50% Inj) 0 ml IV STAT PRN; Protocol PRN Reason: Hypoglycemia Protocol Dextrose (Glutose 15) 0 gm PO ONCE PRN; Protocol PRN Reason: Hypoglycemia Protocol Ergocalciferol (Drisdol 50,000 Intl Units Cap) 1 cap PO Q7D [facility] Last Admin: 04/01/18 23:19 Dose: Not Given Glucagon (Glucagen Diagnostic Kit) 0 mg IM STAT PRN; Protocol PRN Reason: Hypoglycemia Protocol Glucagon (Glucagen Diagnostic Kit) 0 mg IM STAT PRN; Protocol PRN Reason: Hypoglycemia Protocol Heparin Sodium (Porcine) (Heparin) 5,000 units SC Q8 [facility]; Protocol Last Admin: 04/04/18 17:07 Dose: 5,000 units Hydromorphone HCl (Dilaudid) 2 mg PO Q12 PRN PRN Reason: Pain, severe (8-10) Last Admin: 04/04/18 13:22 Dose: 2 mg Insulin Detemir (Levemir) 20 units SC HS [facility] Last Admin: 04/04/18 22:51 Dose: 20 u Insulin Human Lispro (Humalog) 0 units SC ACHS [facility] Last Admin: 04/04/18 22:49 Dose: 3 units Insulin Human Lispro (Humalog) 6 units SC AC [facility] Last Admin: 04/04/18 17:07 Dose: 6 u Lorazepam (Ativan) 0.5 mg IVP Q8H PRN PRN Reason: Agitation Last Admin: 04/03/18 22:34 Dose: 0.5 mg Losartan Potassium (Cozaar) 25 mg PO DAILY [facility] Last Admin: 04/04/18 08:46 Dose: 25 mg Metoclopramide HCl (Reglan) 5 mg PO AC [facility] Last Admin: 04/03/18 12:05 Dose: Not Given Metoclopramide HCl (Reglan) 5 mg IVP Q8 [facility] Last Admin: 04/04/18 17:10 Dose: 5 mg Mirtazapine (Remeron) 15 mg PO HS [facility] Last Admin: 04/04/18 21:30 Dose: 15 mg Ondansetron HCl (Zofran Odt) 4 mg PO Q6 PRN PRN Reason: Nausea/Vomiting Last Admin: 04/03/18 09:26 Dose: 4 mg Ondansetron HCl (Zofran Inj) 4 mg IVP Q6 PRN PRN Reason: Nausea/Vomiting Last Admin: 04/04/18 06:59 Dose: 4 mg Pantoprazole Sodium (Protonix Ec Tab) 40 mg PO DAILY [facility] Last Admin: 04/04/18 08:46 Dose: 40 mg Polyethylene Glycol (Miralax) 17 gm PO DAILY PRN PRN Reason: Constipation Torsemide (Demadex) 5 mg PO DAILY [facility] Last Admin: 04/04/18 08:46 Dose: 5 mg - Labs Labs: 04/01/18 16:56 04/03/18 17:56 PT 10.7 Seconds (9.8-13.1) 04/01/18 16:56 INR 0.9 04/01/18 16:56 APTT 32.5 Seconds (25.6-37.1) 04/01/18 16:56 - Constitutional Appears: Non-toxic - Respiratory Exam Respiratory Exam: Clear to Ausculation Bilateral. absent: Respiratory Distress - Cardiovascular Exam Cardiovascular Exam: RRR, +S1, +S2 - Extremities Exam Additional comments: no leg edema; - Neurological Exam Neurological Exam: Alert, Awake - Psychiatric Exam Psychiatric exam: Normal Mood. absent: Agitated Assessment and Plan (1) ESRD on hemodialysis Assessment & Plan: Relatively stable electrolyte and volume status; next HD for Thursday per routine; Status: Chronic (2) Hypertensive CKD, ESRD on dialysis Assessment & Plan: BP better controlled after getting all her PO meds, continue same; Status: Acute (3) Anemia in CKD (chronic kidney disease) Assessment & Plan: Hgb just at goal, will give EPO as needed; Status: Chronic (4) Chronic kidney disease-mineral and bone disorder Status: Chronic (5) Diabetic gastroparesis Assessment & Plan: Patient again counseled on need for small frequent feeds; will assess need for UF on HD tomorrow based on vomiting symptoms; Status: Chronic
[2018-04-05] MEDS: Insulin Lispro (humaLOG) 100 Units/ml Inj SC SCH ×7 (08:20→21:39)
--- NOTE | 2018-04-05 08:35 | PN ---
DATE: 04/03/2018 ENDOCRINOLOGY FOLLOWUP NOTE LOCATION: In room 413. SUBJECTIVE: This is a 28-year-old female with recent uncontrolled type 1 insulin-dependent diabetes, presenting here with intractable vomiting and diffuse upper abdominal pain related to acute exacerbation of diabetic gastroparesis and is now being followed closely for metabolic management. Her glycemic levels are fluctuating as noted overnight with glucose levels ranging from 67-124 and 379 mg per dL. Her chemistries this morning are pending at this time, but the initial chemistries on admission showed a BUN of 32, sodium 131, potassium 4.8, chloride 94, CO2 16, glucose 725, and creatinine 4.1. Her A1c is still pending at this time as noted. So for now, we will continue the low-dose basal insulin given as Levemir at 10 units subcu every 12 hours at 10:00 a.m. and 10:00 p.m. daily as given. We will continue also the low-dose correction scale using Humalog insulin as ordered. We will obtain serial chemistries and supplement accordingly needed. We will follow. Yamileth Charles MD
--- NOTE | 2018-04-05 09:39 | PN ---
DATE: 04/05/2018 SUBJECTIVE: The patient seen and examined. Interim events noted. Consults noted and appreciated. Gastroenterology and Nephrology followup and intervention noted and appreciated. The patient remains in progressive care unit on telemetry monitoring. The patient is sleeping, arousable, feels okay, still has abdominal pain, but was able to tolerate food. No vomiting. No specific issue reported by nursing staff. PHYSICAL EXAMINATION: GENERAL: The patient is in no acute distress. VITAL SIGNS: Stable. HEART: S1 and S2, normal and regular. LUNGS: Good bilateral air exchange. ABDOMEN: Soft, nontender. No sign of acute abdomen. No guarding, no rigidity, no rebound. Bowel sounds are plus and normal. EXTREMITIES: No edema. No calf swelling. No tenderness. No acute ischemia. CENTRAL NERVOUS SYSTEM: Exam is essentially unchanged. DIAGNOSTIC DATA: Available diagnostic data reviewed. Telemetry monitoring does not show significant arrhythmias. ASSESSMENT AND PLAN: Overall, the patient's general medical condition is stable and improving. Plan as ordered. Garret Rg MD
[2018-04-05] MEDS: Pantoprazole 40 mg EC Tab PO SCH (09:51)
--- NOTE | 2018-04-05 13:56 | PN ---
DATE: 04/05/2018 ENDO FOLLOWUP NOTE LOCATION: Room 413. SUBJECTIVE: This is a 28-year-old female with recent uncontrolled type 1 insulin-dependent diabetes, now being followed closely for metabolic management. Her glycemic levels are fluctuating with the variability of her oral intake and apparently this morning was noted to have very nil portions of her breakfast tray as noted. Her glucose levels have ranged from 66-241 and 324 at bedtime last night as noted. Her chemistry showed a BUN of 24, sodium 129, potassium 4.7, chloride 95, CO2 of 19, glucose is 444, and creatinine is 4.4. Her A1c is 7.1%. So at this time, we will continue the modified basal and bolus insulin regimen to allow for dose equilibration especially with the variability of oral intake as given. We will continue the Humalog given as 6 units t.i.d. before meals as ordered. We will continue her Levemir given as 20 units subcu at bedtime daily as given. We will titrate incremental as indicated to optimize metabolic control. We will follow and advise accordingly. Yamileth Charles MD
[2018-04-05 19:29] LABS: HEMOGLOBIN 8.3 g/dL (12.0-16.0); MEAN CELL VOLUME 85.3 fl (81.0-99.0); MEAN CORPUSCULAR HEMOGLOBIN 27.7 pg (27.0-31.0); MEAN CORPUSCULAR HGB CONC 32.5 g/dL (33.0-37.0); WHITE BLOOD COUNT 6.7 K/uL (4.8-10.8)
[2018-04-05 19:44] LABS: ALB/GLOB RATIO 1.1 (1.0-2.1); CALCIUM 7.9 mg/dL (8.4-10.2)
[2018-04-05] MEDS: Insulin Detemir 100 Units/ml Inj SC SCH (21:38)
[2018-04-06] MEDS: Insulin Lispro (humaLOG) 100 Units/ml Inj SC SCH ×7 (06:42→21:28)
[2018-04-06] MEDS: Pantoprazole 40 mg EC Tab PO SCH (11:47)
--- NOTE | 2018-04-06 11:56 | PN ---
DATE: 04/06/2018 LOCATION: 413. SUBJECTIVE: This is a 28-year-old female with recent uncontrolled type 1 insulin-dependent diabetes, now being followed closely for metabolic management. Her glycemic levels are fluctuating with the variability of her oral intake as noted. Her glucose levels overnight have ranged from 66-246 and 475 mg/dL. Her chemistries today showed a BUN of 13, sodium 132, potassium 3.3, chloride 97, CO2 of 27, glucose 215 and creatinine 1.8. ASSESSMENT AND PLAN: So at this time we will modify once again her basal and bolus insulin regimen with Humalog to be given as 6 units t.i.d. before meals as ordered. We will continue the lower and modified dosing of the Levemir given as 20 units subcu at bedtime daily as given. We will titrate incrementally as indicated to optimize metabolic control. We will follow and advise accordingly. Yamileth Charles MD
--- NOTE | 2018-04-06 12:06 | CP.PCM.PN ---
<Sultan Heidy - Last Filed: 04/06/18 11:59> Subjective - Date & Time of Evaluation Date of Evaluation: 04/06/18 Time of Evaluation: 09:35 - Subjective Subjective: Patient seen and examined this morning. Patient had 3 episodes of NBNB emesis late this morning and an episode of hypoglycemia with POC glucose of 38. Reports feeling weak and still have abdominal discomfort. Denies chest pain, dyspnea, palpitation, fever or chills. Objective - Vital Signs/Intake and Output Vital Signs (last 24 hours): Temp Pulse Resp BP Pulse Ox 98 F 89 18 146/96 H 96 04/06/18 07:59 04/06/18 11:46 04/06/18 07:59 04/06/18 11:46 04/06/18 07:59 - Medications Medications: Current Medications Amlodipine Besylate (Norvasc) 5 mg PO DAILY [facility] Last Admin: 04/06/18 11:46 Dose: 5 mg Calcitriol (Rocaltrol) 0.25 mcg PO MWF [facility] Last Admin: 04/05/18 09:10 Dose: 0.25 mcg Carvedilol (Coreg) 12.5 mg PO Q12 [facility] Last Admin: 04/06/18 09:47 Dose: 12.5 mg Clonidine HCl (Catapres-Tts2 0.2 Mg/24 Hr) 1 patch TD Q7D@1000 [facility] Dextrose (Dextrose 50% Inj) 0 ml IV STAT PRN; Protocol PRN Reason: Hypoglycemia Protocol Dextrose (Glutose 15) 0 gm PO ONCE PRN; Protocol PRN Reason: Hypoglycemia Protocol Dextrose (Dextrose 50% Inj) 0 ml IV STAT PRN; Protocol PRN Reason: Hypoglycemia Protocol Dextrose (Glutose 15) 0 gm PO ONCE PRN; Protocol PRN Reason: Hypoglycemia Protocol Ergocalciferol (Drisdol 50,000 Intl Units Cap) 1 cap PO Q7D [facility] Last Admin: 04/01/18 23:19 Dose: Not Given Glucagon (Glucagen Diagnostic Kit) 0 mg IM STAT PRN; Protocol PRN Reason: Hypoglycemia Protocol Glucagon (Glucagen Diagnostic Kit) 0 mg IM STAT PRN; Protocol PRN Reason: Hypoglycemia Protocol Heparin Sodium (Porcine) (Heparin) 5,000 units SC Q8 [facility]; Protocol Last Admin: 04/06/18 09:48 Dose: Not Given Hydromorphone HCl (Dilaudid) 2 mg PO Q12 PRN PRN Reason: Pain, severe (8-10) Last Admin: 04/06/18 08:30 Dose: 2 mg Insulin Detemir (Levemir) 20 units SC [facility] Last Admin: 04/05/18 21:38 Dose: 20 u Insulin Human Lispro (Humalog) 0 units SC [facility] Last Admin: 04/06/18 06:42 Dose: Not Given Insulin Human Lispro (Humalog) 6 units SC [facility] Last Admin: 04/06/18 08:31 Dose: 6 u Losartan Potassium (Cozaar) 25 mg PO DAILY [facility] Last Admin: 04/06/18 11:46 Dose: 25 mg Metoclopramide HCl (Reglan) 5 mg PO [facility] Last Admin: 04/03/18 12:05 Dose: Not Given Metoclopramide HCl (Reglan) 5 mg IVP Q8 [facility] Last Admin: 04/06/18 08:32 Dose: 5 mg Mirtazapine (Remeron) 15 mg PO [facility] Last Admin: 04/05/18 21:36 Dose: 15 mg Ondansetron HCl (Zofran Odt) 4 mg PO Q6 PRN PRN Reason: Nausea/Vomiting Last Admin: 04/03/18 09:26 Dose: 4 mg Ondansetron HCl (Zofran Inj) 4 mg IVP Q6 PRN PRN Reason: Nausea/Vomiting Last Admin: 04/04/18 06:59 Dose: 4 mg Pantoprazole Sodium (Protonix Ec Tab) 40 mg PO DAILY [facility] Last Admin: 04/06/18 11:47 Dose: 40 mg Polyethylene Glycol (Miralax) 17 gm PO DAILY PRN PRN Reason: Constipation Torsemide (Demadex) 5 mg PO DAILY [facility] Last Admin: 04/06/18 11:48 Dose: 5 mg - Labs Labs: 04/05/18 19:22 04/05/18 19:22 PT 10.7 Seconds (9.8-13.1) 04/01/18 16:56 INR 0.9 04/01/18 16:56 APTT 32.5 Seconds (25.6-37.1) 04/01/18 16:56 - Constitutional Appears: No Acute Distress - Head Exam Head Exam: NORMAL INSPECTION - Eye Exam Eye Exam: Normal appearance - ENT Exam ENT Exam: Mucous Membranes Moist - Neck Exam Neck Exam: Normal Inspection - Respiratory Exam Respiratory Exam: Clear to Ausculation Bilateral, NORMAL BREATHING PATTERN. absent: Rhonchi, Wheezes - Cardiovascular Exam Cardiovascular Exam: REGULAR RHYTHM, +S1, +S2 - GI/Abdominal Exam GI & Abdominal Exam: Soft, Tenderness (mild epigastric tenderness), Normal Bowel Sounds - Extremities Exam Extremities Exam: Normal Inspection. absent: Calf Tenderness - Neurological Exam Neurological Exam: Alert, Awake, Oriented x3 - Psychiatric Exam Psychiatric exam: Anxious - Skin Skin Exam: Normal Color Assessment and Plan (1) Abdominal pain with vomiting Status: Acute (2) Gastroparesis Status: Acute (3) ESRD on hemodialysis Status: Chronic (4) Uncontrolled diabetes mellitus Status: Acute (5) Anemia in CKD (chronic kidney disease) Status: Chronic - Assessment and Plan (Free Text) Assessment: A/P: 28 y/o female admitted to [facility] for evaluation and treatment of Gastroparesis, Anxiety (Drug seeking behavior) and elevated blood sugar. Patient had 3 episodes of vomiting this morning and one hypoglycemic episode. - Consult GI, recommendations appreciated -c/w reglan 5 mg IVP q8 hr - Consult Nephro Dr. Martines, recs appreciated -C/w HD as [facility] on MWF -c/w calctriol 0.25 mcg on MWF - Consult Endocrine, Dr. Charles: recommendations appreciated - C/w Levemir 20 Units HS - C/W Insulin lispro 6 units AC HS - Hypoglycemic protocol, AccuCheck ACHS - Consult psych, recommendations appreciated -C/w Rameron 15 mg PO hs -Diabetic diet as tolerated -C/w home medications and rest of the plan as ordered Plan discussed with Dr. Ifrah Moody, pgy-2 <Garret Rg - Last Filed: 04/08/18 20:30> Objective - Vital Signs/Intake and Output Vital Signs (last 24 hours): Temp Pulse Resp BP Pulse Ox 98.3 F 83 16 98/61 L 97 04/08/18 19:37 04/08/18 19:37 04/08/18 19:37 04/08/18 19:37 04/08/18 19:37 - Medications Medications: Current Medications Amlodipine Besylate (Norvasc) 5 mg PO DAILY [facility] Last Admin: 04/08/18 10:13 Dose: Not Given Calcitriol (Rocaltrol) 0.25 mcg PO MWF [facility] Last Admin: 04/07/18 09:21 Dose: 0.25 mcg Carvedilol (Coreg) 12.5 mg PO Q12 [facility] Last Admin: 04/08/18 10:12 Dose: Not Given Clonidine HCl (Catapres-Tts2 0.2 Mg/24 Hr) 1 patch TD Q7D@1000 [facility] Last Admin: 04/08/18 10:12 Dose: Not Given Dextrose (Dextrose 50% Inj) 0 ml IV STAT PRN; Protocol PRN Reason: Hypoglycemia Protocol Last Admin: 04/06/18 12:06 Dose: 50 ml Dextrose (Glutose 15) 0 gm PO ONCE PRN; Protocol PRN Reason: Hypoglycemia Protocol Dextrose (Dextrose 50% Inj) 0 ml IV STAT PRN; Protocol PRN Reason: Hypoglycemia Protocol Last Admin: 04/07/18 05:16 Dose: 50 ml Dextrose (Glutose 15) 0 gm PO ONCE PRN; Protocol PRN Reason: Hypoglycemia Protocol Ergocalciferol (Drisdol 50,000 Intl Units Cap) 1 cap PO Q7D [facility] Last Admin: 04/01/18 23:19 Dose: Not Given Famotidine (Pepcid) 20 mg PO BID [facility] Last Admin: 04/08/18 17:20 Dose: 20 mg Glucagon (Glucagen Diagnostic Kit) 0 mg IM STAT PRN; Protocol PRN Reason: Hypoglycemia Protocol Glucagon (Glucagen Diagnostic Kit) 0 mg IM STAT PRN; Protocol PRN Reason: Hypoglycemia Protocol Heparin Sodium (Porcine) (Heparin) 5,000 units SC Q8 [facility]; Protocol Last Admin: 04/08/18 17:19 Dose: Not Given Hydromorphone HCl (Dilaudid) 2 mg PO Q12 PRN PRN Reason: Pain, severe (8-10) Last Admin: 04/07/18 20:02 Dose: 2 mg Hydroxyzine Pamoate (Vistaril) 50 mg PO Q8 PRN PRN Reason: Anxiety Insulin Detemir (Levemir) 14 units SC HS [facility] Last Admin: 04/07/18 22:53 Dose: Not Given Insulin Human Lispro (Humalog) 0 units SC [facility] Last Admin: 04/08/18 17:23 Dose: 5 units Insulin Human Lispro (Humalog) 6 units SC AC [facility] Last Admin: 04/08/18 17:23 Dose: 6 unit Losartan Potassium (Cozaar) 25 mg PO DAILY [facility] Last Admin: 04/08/18 10:13 Dose: Not Given Metoclopramide HCl (Reglan) 5 mg PO AC [facility] Last Admin: 04/03/18 12:05 Dose: Not Given Metoclopramide HCl (Reglan) 5 mg IVP Q8 [facility] Last Admin: 04/08/18 17:20 Dose: 5 mg Mirtazapine (Remeron) 15 mg PO HS [facility] Last Admin: 04/07/18 22:54 Dose: Not Given Ondansetron HCl (Zofran Odt) 4 mg PO Q6 PRN PRN Reason: Nausea/Vomiting Last Admin: 04/03/18 09:26 Dose: 4 mg Ondansetron HCl (Zofran Inj) 4 mg IVP Q6 PRN PRN Reason: Nausea/Vomiting Last Admin: 04/07/18 05:44 Dose: 4 mg Pantoprazole Sodium (Protonix Ec Tab) 40 mg PO DAILY [facility] Last Admin: 04/08/18 10:14 Dose: Not Given Polyethylene Glycol (Miralax) 17 gm PO DAILY PRN PRN Reason: Constipation Torsemide (Demadex) 5 mg PO DAILY [facility] Last Admin: 04/08/18 10:13 Dose: Not Given - Labs Labs: 04/05/18 19:22 04/05/18 19:22 PT 10.7 Seconds (9.8-13.1) 04/01/18 16:56 INR 0.9 04/01/18 16:56 APTT 32.5 Seconds (25.6-37.1) 04/01/18 16:56 Assessment and Plan - Assessment and Plan (Free Text) Assessment: Patient was personally seen and examined by me in rounds with residents. Available labs and diagnostic data reviewed. Case, Patient's condition and management plan discussed with residents in rounds. Agree with resident's progress note. Plan: As ordered.
[2018-04-06] MEDS: Insulin Detemir 100 Units/ml Inj SC SCH (21:28)
[2018-04-07] MEDS: Insulin Lispro (humaLOG) 100 Units/ml Inj SC SCH ×7 (06:52→21:12)
--- NOTE | 2018-04-07 08:45 | CP.PCM.PN ---
<[place] - Last Filed: 04/07/18 09:54> Subjective - Date & Time of Evaluation Date of Evaluation: 04/07/18 Time of Evaluation: 07:45 - Subjective Subjective: Patient seen and examined this AM with Dr. Rg Overnight events reviewed Remains afebrile with HR in 90's and BP somewhat controlled. Patient had an episode of hypoglycemia with BS of 27 at 5 am this morning and was given D5 1 amp and cranberry juice. Still has on/off vomiting and abdominal pain. Receiving HD this morning but declined AM labs. Denies chest pain, dyspnea, palpitation, fever, chills or dizziness. Objective - Vital Signs/Intake and Output Vital Signs (last 24 hours): Temp Pulse Resp BP Pulse Ox 98.0 F 95 H 20 135/91 H 94 L 04/07/18 08:00 04/07/18 08:00 04/07/18 08:00 04/07/18 08:00 04/07/18 08:00 - Medications Medications: Current Medications Amlodipine Besylate (Norvasc) 5 mg PO DAILY [facility] Last Admin: 04/06/18 11:46 Dose: 5 mg Calcitriol (Rocaltrol) 0.25 mcg PO MWF [facility] Last Admin: 04/05/18 09:10 Dose: 0.25 mcg Carvedilol (Coreg) 12.5 mg PO Q12 [facility] Last Admin: 04/06/18 20:58 Dose: 12.5 mg Clonidine HCl (Catapres-Tts2 0.2 Mg/24 Hr) 1 patch TD Q7D@1000 [facility] Dextrose (Dextrose 50% Inj) 0 ml IV STAT PRN; Protocol PRN Reason: Hypoglycemia Protocol Last Admin: 04/06/18 12:06 Dose: 50 ml Dextrose (Glutose 15) 0 gm PO ONCE PRN; Protocol PRN Reason: Hypoglycemia Protocol Dextrose (Dextrose 50% Inj) 0 ml IV STAT PRN; Protocol PRN Reason: Hypoglycemia Protocol Last Admin: 04/07/18 05:16 Dose: 50 ml Dextrose (Glutose 15) 0 gm PO ONCE PRN; Protocol PRN Reason: Hypoglycemia Protocol Ergocalciferol (Drisdol 50,000 Intl Units Cap) 1 cap PO Q7D [facility] Last Admin: 04/01/18 23:19 Dose: Not Given Glucagon (Glucagen Diagnostic Kit) 0 mg IM STAT PRN; Protocol PRN Reason: Hypoglycemia Protocol Glucagon (Glucagen Diagnostic Kit) 0 mg IM STAT PRN; Protocol PRN Reason: Hypoglycemia Protocol Heparin Sodium (Porcine) (Heparin) 5,000 units SC Q8 [facility]; Protocol Last Admin: 04/07/18 01:59 Dose: Not Given Hydromorphone HCl (Dilaudid) 2 mg PO Q12 PRN PRN Reason: Pain, severe (8-10) Last Admin: 04/07/18 05:42 Dose: 2 mg Insulin Detemir (Levemir) 20 units SC [facility] Last Admin: 04/06/18 21:28 Dose: 20 u Insulin Human Lispro (Humalog) 0 units SC [facility] Last Admin: 04/07/18 06:52 Dose: Not Given Insulin Human Lispro (Humalog) 6 units SC [facility] Last Admin: 04/06/18 17:38 Dose: 6 u Losartan Potassium (Cozaar) 25 mg PO DAILY [facility] Last Admin: 04/06/18 11:46 Dose: 25 mg Metoclopramide HCl (Reglan) 5 mg PO [facility] Last Admin: 04/03/18 12:05 Dose: Not Given Metoclopramide HCl (Reglan) 5 mg IVP Q8 [facility] Last Admin: 04/07/18 01:59 Dose: Not Given Mirtazapine (Remeron) 15 mg PO [facility] Last Admin: 04/06/18 21:01 Dose: 15 mg Ondansetron HCl (Zofran Odt) 4 mg PO Q6 PRN PRN Reason: Nausea/Vomiting Last Admin: 04/03/18 09:26 Dose: 4 mg Ondansetron HCl (Zofran Inj) 4 mg IVP Q6 PRN PRN Reason: Nausea/Vomiting Last Admin: 04/07/18 05:44 Dose: 4 mg Pantoprazole Sodium (Protonix Ec Tab) 40 mg PO DAILY [facility] Last Admin: 04/06/18 11:47 Dose: 40 mg Polyethylene Glycol (Miralax) 17 gm PO DAILY PRN PRN Reason: Constipation Torsemide (Demadex) 5 mg PO DAILY [facility] Last Admin: 04/06/18 11:48 Dose: 5 mg - Labs Labs: 04/05/18 19:22 04/05/18 19:22 PT 10.7 Seconds (9.8-13.1) 04/01/18 16:56 INR 0.9 04/01/18 16:56 APTT 32.5 Seconds (25.6-37.1) 04/01/18 16:56 - Constitutional Appears: Non-toxic, No Acute Distress - Head Exam Head Exam: NORMAL INSPECTION - Eye Exam Eye Exam: Normal appearance - ENT Exam ENT Exam: Mucous Membranes Moist - Neck Exam Neck Exam: Normal Inspection. absent: Meningismus - Respiratory Exam Respiratory Exam: Clear to Ausculation Bilateral, NORMAL BREATHING PATTERN. absent: Rhonchi, Wheezes - Cardiovascular Exam Cardiovascular Exam: REGULAR RHYTHM, +S1, +S2 - GI/Abdominal Exam GI & Abdominal Exam: Soft, Normal Bowel Sounds. absent: Guarding, Rigid, Rebound Additional comments: Moderate diffuse abdominal tenderness. - Extremities Exam Extremities Exam: Normal Inspection. absent: Calf Tenderness - Neurological Exam Neurological Exam: Alert, Awake, Oriented x3 - Psychiatric Exam Psychiatric exam: Anxious - Skin Skin Exam: Normal Color. absent: Petechiae, Rash Assessment and Plan (1) Abdominal pain with vomiting Status: Acute (2) Gastroparesis Status: Acute (3) ESRD on hemodialysis Status: Chronic (4) Uncontrolled diabetes mellitus Status: Acute (5) Anemia in CKD (chronic kidney disease) Status: Chronic - Assessment and Plan (Free Text) Assessment: A/P: 28 y/o female admitted to [facility] for evaluation and treatment of Gastroparesis, Anxiety (Drug seeking behavior) and elevated blood sugar. Patient continues to have intermittent vomiting and fluctuating BS with one hypoglycemic episode this morning. - Consult GI, recommendations appreciated -c/w reglan 5 mg IVP q8 hr -c/w Pantoprazole 40 mg po daily -start Pepcid 20 mg po bid - Consult Nephro Dr. Martines, recs appreciated -C/w HD as [facility] on MWF -c/w calctriol 0.25 mcg on MWF -Receiving HD this morning - Consult Endocrine, Dr. Charles: recommendations appreciated - Decrease Levemir from 20 to 10 Units HS - Decrease Insulin lispro from 6 units to 4 units AC HS - Hypoglycemic protocol, AccuCheck ACHS - Consult psych, recommendations appreciated -C/w Rameron 15 mg PO hs -Diabetic diet as tolerated -C/w home medications and rest of the plan as ordered -f/u abdominal US -f/u AM labs Patient seen, examined and plan discussed with Dr. Ifrah Moody, pgy-2 <Garret Rg - Last Filed: 04/08/18 20:31> Objective - Vital Signs/Intake and Output Vital Signs (last 24 hours): Temp Pulse Resp BP Pulse Ox 98.3 F 83 16 98/61 L 97 04/08/18 19:37 04/08/18 19:37 04/08/18 19:37 04/08/18 19:37 04/08/18 19:37 - Medications Medications: Current Medications Amlodipine Besylate (Norvasc) 5 mg PO DAILY [facility] Last Admin: 04/08/18 10:13 Dose: Not Given Calcitriol (Rocaltrol) 0.25 mcg PO MWF [facility] Last Admin: 04/07/18 09:21 Dose: 0.25 mcg Carvedilol (Coreg) 12.5 mg PO Q12 [facility] Last Admin: 04/08/18 10:12 Dose: Not Given Clonidine HCl (Catapres-Tts2 0.2 Mg/24 Hr) 1 patch TD Q7D@1000 [facility] Last Admin: 04/08/18 10:12 Dose: Not Given Dextrose (Dextrose 50% Inj) 0 ml IV STAT PRN; Protocol PRN Reason: Hypoglycemia Protocol Last Admin: 04/06/18 12:06 Dose: 50 ml Dextrose (Glutose 15) 0 gm PO ONCE PRN; Protocol PRN Reason: Hypoglycemia Protocol Dextrose (Dextrose 50% Inj) 0 ml IV STAT PRN; Protocol PRN Reason: Hypoglycemia Protocol Last Admin: 04/07/18 05:16 Dose: 50 ml Dextrose (Glutose 15) 0 gm PO ONCE PRN; Protocol PRN Reason: Hypoglycemia Protocol Ergocalciferol (Drisdol 50,000 Intl Units Cap) 1 cap PO Q7D [facility] Last Admin: 04/01/18 23:19 Dose: Not Given Famotidine (Pepcid) 20 mg PO BID [facility] Last Admin: 04/08/18 17:20 Dose: 20 mg Glucagon (Glucagen Diagnostic Kit) 0 mg IM STAT PRN; Protocol PRN Reason: Hypoglycemia Protocol Glucagon (Glucagen Diagnostic Kit) 0 mg IM STAT PRN; Protocol PRN Reason: Hypoglycemia Protocol Heparin Sodium (Porcine) (Heparin) 5,000 units SC Q8 [facility]; Protocol Last Admin: 04/08/18 17:19 Dose: Not Given Hydromorphone HCl (Dilaudid) 2 mg PO Q12 PRN PRN Reason: Pain, severe (8-10) Last Admin: 04/07/18 20:02 Dose: 2 mg Hydroxyzine Pamoate (Vistaril) 50 mg PO Q8 PRN PRN Reason: Anxiety Insulin Detemir (Levemir) 14 units SC HS [facility] Last Admin: 04/07/18 22:53 Dose: Not Given Insulin Human Lispro (Humalog) 0 units SC [facility] Last Admin: 04/08/18 17:23 Dose: 5 units Insulin Human Lispro (Humalog) 6 units SC [facility] Last Admin: 04/08/18 17:23 Dose: 6 unit Losartan Potassium (Cozaar) 25 mg PO DAILY [facility] Last Admin: 04/08/18 10:13 Dose: Not Given Metoclopramide HCl (Reglan) 5 mg PO AC [facility] Last Admin: 04/03/18 12:05 Dose: Not Given Metoclopramide HCl (Reglan) 5 mg IVP Q8 [facility] Last Admin: 04/08/18 17:20 Dose: 5 mg Mirtazapine (Remeron) 15 mg PO [facility] Last Admin: 04/07/18 22:54 Dose: Not Given Ondansetron HCl (Zofran Odt) 4 mg PO Q6 PRN PRN Reason: Nausea/Vomiting Last Admin: 04/03/18 09:26 Dose: 4 mg Ondansetron HCl (Zofran Inj) 4 mg IVP Q6 PRN PRN Reason: Nausea/Vomiting Last Admin: 04/07/18 05:44 Dose: 4 mg Pantoprazole Sodium (Protonix Ec Tab) 40 mg PO DAILY [facility] Last Admin: 04/08/18 10:14 Dose: Not Given Polyethylene Glycol (Miralax) 17 gm PO DAILY PRN PRN Reason: Constipation Torsemide (Demadex) 5 mg PO DAILY [facility] Last Admin: 04/08/18 10:13 Dose: Not Given - Labs Labs: 04/05/18 19:22 04/05/18 19:22 PT 10.7 Seconds (9.8-13.1) 04/01/18 16:56 INR 0.9 04/01/18 16:56 APTT 32.5 Seconds (25.6-37.1) 04/01/18 16:56 Assessment and Plan - Assessment and Plan (Free Text) Assessment: Patient was personally seen and examined by me in rounds with residents. Available labs and diagnostic data reviewed. Case, Patient's condition and management plan discussed with residents in rounds. Agree with resident's progress note. Plan: As ordered.
[2018-04-07] MEDS: Pantoprazole 40 mg EC Tab PO SCH (09:21)
[2018-04-07] MEDS ORDERED: hydrOXYzine HCl 50 mg/ml Inj IM STA (13:22)
--- NOTE | 2018-04-07 13:51 | PQF ---
PROVIDER RESPONSE TEXT: Essential HTN REVIEWER QUERY TEXT: Hypertension Specificity History of Hypertension is documented in the medical record. Please specify the type of hypertension such as: -Urgency -Emergency -Crisis -Portal -Pulmonary -Secondary (please specify underlying cause) -With hypertensive encephalopathy -Other (please specify in the medical record) B/P:196/110->190/104->160/96->135/91->168/98 H and P includes: a hx. of Hypertension -ER physician orders includes:: @20:48 Catapres .1 stat and @21;24 Catapres .1 stat -Physician orders also include Norvasc , Cozaar, Torsemide, Cozaar: daily and clonidine patch The patient's Clinical Indicators include: --- Query created by: Liudmila Harrington on 04/07/2018 8:12 AM Electronically signed by: Sultan Moody 04/07/2018 1:47 PM
--- NOTE | 2018-04-07 13:51 | PQF ---
PROVIDER RESPONSE TEXT: IDDM-I REVIEWER QUERY TEXT: Conflicting Documentation Clarification Please clarify whether the diagnoses is: DM Type 1 versus DM Type 2 -- Other, please specify Draft H and P includes: Past Patient Hx.: Hx Diabetes Mellitus Type 2: Yes (on insulin pump) and History of Present Illness: This is 28 y/o F with PMH of IDDM-I The patient's Clinical Indicators include: ----- Query created by: Liudmila Harrington on 04/07/2018 8:10 AM Electronically signed by: Sultan Moody 04/07/2018 1:47 PM
--- NOTE | 2018-04-07 21:21 | CP.PCM.PN ---
Subjective - Date & Time of Evaluation Date of Evaluation: 04/07/18 Time of Evaluation: 15:30 - Subjective Subjective: 28 yo F w/ pmh of htn, DM w/ gastroparesis and nephrotic syndrome, recently deemed ESRD and started on HD, again admitted with gastroparesis flare; Patient reportedly hysterical this morning, screaming for pain meds, although has periods where she is calm and not seemingly in any pain; again crying for pain meds on my encounter; again with vomiting but also reports of possibly self inducing vomiting; Objective - Vital Signs/Intake and Output Vital Signs (last 24 hours): Temp Pulse Resp BP Pulse Ox 97.9 F 92 H 16 158/92 H 94 L 04/07/18 19:36 04/07/18 20:37 04/07/18 19:36 04/07/18 19:36 04/07/18 19:36 - Medications Medications: Current Medications Amlodipine Besylate (Norvasc) 5 mg PO DAILY [facility] Last Admin: 04/07/18 09:25 Dose: Not Given Calcitriol (Rocaltrol) 0.25 mcg PO MWF [facility] Last Admin: 04/07/18 09:21 Dose: 0.25 mcg Carvedilol (Coreg) 12.5 mg PO Q12 [facility] Last Admin: 04/07/18 09:19 Dose: Not Given Clonidine HCl (Catapres-Tts2 0.2 Mg/24 Hr) 1 patch TD Q7D@1000 [facility] Dextrose (Dextrose 50% Inj) 0 ml IV STAT PRN; Protocol PRN Reason: Hypoglycemia Protocol Last Admin: 04/06/18 12:06 Dose: 50 ml Dextrose (Glutose 15) 0 gm PO ONCE PRN; Protocol PRN Reason: Hypoglycemia Protocol Dextrose (Dextrose 50% Inj) 0 ml IV STAT PRN; Protocol PRN Reason: Hypoglycemia Protocol Last Admin: 04/07/18 05:16 Dose: 50 ml Dextrose (Glutose 15) 0 gm PO ONCE PRN; Protocol PRN Reason: Hypoglycemia Protocol Ergocalciferol (Drisdol 50,000 Intl Units Cap) 1 cap PO Q7D [facility] Last Admin: 04/01/18 23:19 Dose: Not Given Famotidine (Pepcid) 20 mg PO BID [facility] Last Admin: 04/07/18 11:34 Dose: Not Given Glucagon (Glucagen Diagnostic Kit) 0 mg IM STAT PRN; Protocol PRN Reason: Hypoglycemia Protocol Glucagon (Glucagen Diagnostic Kit) 0 mg IM STAT PRN; Protocol PRN Reason: Hypoglycemia Protocol Heparin Sodium (Porcine) (Heparin) 5,000 units SC Q8 [facility]; Protocol Last Admin: 04/07/18 16:30 Dose: Not Given Hydromorphone HCl (Dilaudid) 2 mg PO Q12 PRN PRN Reason: Pain, severe (8-10) Last Admin: 04/07/18 20:02 Dose: 2 mg Hydroxyzine Pamoate (Vistaril) 50 mg PO Q8 PRN PRN Reason: Anxiety Insulin Detemir (Levemir) 10 units SC HS [facility] Last Admin: 04/07/18 21:11 Dose: 10 units Insulin Human Lispro (Humalog) 0 units SC ACHS [facility] Last Admin: 04/07/18 21:12 Dose: 5 units Insulin Human Lispro (Humalog) 4 units SC AC [facility] Last Admin: 04/07/18 16:31 Dose: Not Given Losartan Potassium (Cozaar) 25 mg PO DAILY [facility] Last Admin: 04/07/18 09:19 Dose: Not Given Metoclopramide HCl (Reglan) 5 mg PO AC [facility] Last Admin: 04/03/18 12:05 Dose: Not Given Metoclopramide HCl (Reglan) 5 mg IVP Q8 [facility] Last Admin: 04/07/18 09:21 Dose: 5 mg Mirtazapine (Remeron) 15 mg PO HS [facility] Last Admin: 04/06/18 21:01 Dose: 15 mg Ondansetron HCl (Zofran Odt) 4 mg PO Q6 PRN PRN Reason: Nausea/Vomiting Last Admin: 04/03/18 09:26 Dose: 4 mg Ondansetron HCl (Zofran Inj) 4 mg IVP Q6 PRN PRN Reason: Nausea/Vomiting Last Admin: 04/07/18 05:44 Dose: 4 mg Pantoprazole Sodium (Protonix Ec Tab) 40 mg PO DAILY [facility] Last Admin: 04/07/18 09:21 Dose: 40 mg Polyethylene Glycol (Miralax) 17 gm PO DAILY PRN PRN Reason: Constipation Torsemide (Demadex) 5 mg PO DAILY [facility] Last Admin: 04/07/18 09:28 Dose: 5 mg - Labs Labs: 04/05/18 19:22 04/05/18 19:22 PT 10.7 Seconds (9.8-13.1) 04/01/18 16:56 INR 0.9 04/01/18 16:56 APTT 32.5 Seconds (25.6-37.1) 04/01/18 16:56 - Constitutional Appears: No Acute Distress - Respiratory Exam Respiratory Exam: absent: Respiratory Distress - Neurological Exam Neurological Exam: Alert, Awake - Psychiatric Exam Psychiatric exam: Agitated - Skin Skin Exam: absent: Cyanosis Assessment and Plan (1) ESRD on hemodialysis Assessment & Plan: Relatively stable volume and electrolyte status; s/p routine HD today, low UF goal in the setting of recurrent vomiting; next HD for Thursday per routine; Status: Chronic (2) Hypertensive CKD, ESRD on dialysis Assessment & Plan: BP control fluctuating; will keep on current meds; Status: Acute (3) Anemia in CKD (chronic kidney disease) Assessment & Plan: Hgb dropped well below goal; will re-assess with repeat irion sudies; giving dose of EPO; Status: Chronic (4) Chronic kidney disease-mineral and bone disorder Assessment & Plan: Phos low indicating indadequate PO intake; not on any binders; will keep her on calcitriol; Status: Chronic (5) Diabetic gastroparesis Assessment & Plan: Again with recurrent GI symptoms thought to be secondary to this condition; unclear why blood sugars so labile (alternating severe hyper and hypoglycemia); was on insulin pump until days before presentation; should consider restarting MAYCO after conferring with endocrine; continue reglan with meals; Status: Chronic
[2018-04-07] MEDS ORDERED: Insulin Detemir 100 Units/ml Inj SC SCH (22:00)
--- NOTE | 2018-04-07 22:46 | PN ---
DATE: 04/07/2018 ENDOCRINOLOGY FOLLOWUP NOTE LOCATION: Room 413. This is a 28-year-old female with recent uncontrolled type 1 insulin-dependent diabetes, now being followed closely for metabolic management. Once again, her oral intake has been extremely variable and suboptimal overnight with supervening hypoglycemic episodes as noted thereof. Her morning Humalog was held with expected hyperglycemic accelerations once again as noted. 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 Her bedtime glucose was 440 to over 500 mg/dL. Her chemistry showed a BUN of 13, sodium 132, potassium 3.3, chloride 97, CO2 of 27, glucose 215, and creatinine 1.8. So at this time, we will modify once again her basal and bolus insulin regimen with Humalog to be lowered to 4 units t.i.d. before meals to start today as ordered. We will also lower the basal insulin with Levemir to be given as 10 units subcu at bedtime daily to start tonight as given. We will obtain serial chemistries and supplement accordingly as needed. We will follow. Yamileth Charles MD
[2018-04-07] MEDS: Insulin Detemir 100 Units/ml Inj SC SCH (22:53)
[2018-04-08] MEDS: Insulin Lispro (humaLOG) 100 Units/ml Inj SC SCH ×7 (08:08→21:30)
[2018-04-08] MEDS ORDERED: EPOETIN ALFA 10,000 UNIT/ML ML SC ONE (10:00)
[2018-04-08] MEDS: Pantoprazole 40 mg EC Tab PO SCH (10:14)
--- NOTE | 2018-04-08 14:52 | CP.PCM.PN ---
<Sultan Heidy - Last Filed: 04/08/18 14:47> Subjective - Date & Time of Evaluation Date of Evaluation: 04/08/18 Time of Evaluation: 08:20 - Subjective Subjective: Patient seen and examined this AM with Dr. Rg Patient was sleeping comfortably before we entered the room. She started crying and asking for IV pain medication for abdominal pain. Still c/o on/off vomiting. Denies chest pain, dyspnea, palpitation, fever, chills or dizziness. Remains afebrile Patient has been refusing labs workup and medications at times Declined abdominal US yesterday. Objective - Vital Signs/Intake and Output Vital Signs (last 24 hours): Temp Pulse Resp BP Pulse Ox 98.6 F 97 H 18 147/92 H 94 L 04/08/18 11:52 04/08/18 11:52 04/08/18 11:52 04/08/18 11:52 04/08/18 11:52 - Medications Medications: Current Medications Amlodipine Besylate (Norvasc) 5 mg PO DAILY [facility] Last Admin: 04/08/18 10:13 Dose: Not Given Calcitriol (Rocaltrol) 0.25 mcg PO MWF [facility] Last Admin: 04/07/18 09:21 Dose: 0.25 mcg Carvedilol (Coreg) 12.5 mg PO Q12 [facility] Last Admin: 04/08/18 10:12 Dose: Not Given Clonidine HCl (Catapres-Tts2 0.2 Mg/24 Hr) 1 patch TD Q7D@1000 [facility] Last Admin: 04/08/18 10:12 Dose: Not Given Dextrose (Dextrose 50% Inj) 0 ml IV STAT PRN; Protocol PRN Reason: Hypoglycemia Protocol Last Admin: 04/06/18 12:06 Dose: 50 ml Dextrose (Glutose 15) 0 gm PO ONCE PRN; Protocol PRN Reason: Hypoglycemia Protocol Dextrose (Dextrose 50% Inj) 0 ml IV STAT PRN; Protocol PRN Reason: Hypoglycemia Protocol Last Admin: 04/07/18 05:16 Dose: 50 ml Dextrose (Glutose 15) 0 gm PO ONCE PRN; Protocol PRN Reason: Hypoglycemia Protocol Ergocalciferol (Drisdol 50,000 Intl Units Cap) 1 cap PO Q7D [facility] Last Admin: 04/01/18 23:19 Dose: Not Given Famotidine (Pepcid) 20 mg PO BID [facility] Last Admin: 04/08/18 10:14 Dose: Not Given Glucagon (Glucagen Diagnostic Kit) 0 mg IM STAT PRN; Protocol PRN Reason: Hypoglycemia Protocol Glucagon (Glucagen Diagnostic Kit) 0 mg IM STAT PRN; Protocol PRN Reason: Hypoglycemia Protocol Heparin Sodium (Porcine) (Heparin) 5,000 units SC Q8 [facility]; Protocol Last Admin: 04/08/18 10:13 Dose: Not Given Hydromorphone HCl (Dilaudid) 2 mg PO Q12 PRN PRN Reason: Pain, severe (8-10) Last Admin: 04/07/18 20:02 Dose: 2 mg Hydroxyzine Pamoate (Vistaril) 50 mg PO Q8 PRN PRN Reason: Anxiety Insulin Detemir (Levemir) 14 units SC [facility] Last Admin: 04/07/18 22:53 Dose: Not Given Insulin Human Lispro (Humalog) 0 units SC [facility] Last Admin: 04/08/18 14:39 Dose: 5 units Insulin Human Lispro (Humalog) 6 units SC [facility] Last Admin: 04/08/18 14:40 Dose: 6 unit Losartan Potassium (Cozaar) 25 mg PO DAILY [facility] Last Admin: 04/08/18 10:13 Dose: Not Given Metoclopramide HCl (Reglan) 5 mg PO [facility] Last Admin: 04/03/18 12:05 Dose: Not Given Metoclopramide HCl (Reglan) 5 mg IVP Q8 [facility] Last Admin: 04/08/18 11:13 Dose: 5 mg Mirtazapine (Remeron) 15 mg PO [facility] Last Admin: 04/07/18 22:54 Dose: Not Given Ondansetron HCl (Zofran Odt) 4 mg PO Q6 PRN PRN Reason: Nausea/Vomiting Last Admin: 04/03/18 09:26 Dose: 4 mg Ondansetron HCl (Zofran Inj) 4 mg IVP Q6 PRN PRN Reason: Nausea/Vomiting Last Admin: 04/07/18 05:44 Dose: 4 mg Pantoprazole Sodium (Protonix Ec Tab) 40 mg PO DAILY [facility] Last Admin: 04/08/18 10:14 Dose: Not Given Polyethylene Glycol (Miralax) 17 gm PO DAILY PRN PRN Reason: Constipation Torsemide (Demadex) 5 mg PO DAILY [facility] Last Admin: 04/08/18 10:13 Dose: Not Given - Labs Labs: 04/05/18 19:22 04/05/18 19:22 PT 10.7 Seconds (9.8-13.1) 04/01/18 16:56 INR 0.9 04/01/18 16:56 APTT 32.5 Seconds (25.6-37.1) 04/01/18 16:56 - Constitutional Appears: No Acute Distress, Other - Head Exam Head Exam: NORMAL INSPECTION - Eye Exam Eye Exam: Normal appearance - ENT Exam ENT Exam: Mucous Membranes Moist - Respiratory Exam Respiratory Exam: Clear to Ausculation Bilateral, NORMAL BREATHING PATTERN. absent: Rhonchi, Wheezes - Cardiovascular Exam Cardiovascular Exam: REGULAR RHYTHM, +S1, +S2 - GI/Abdominal Exam GI & Abdominal Exam: Soft, Tenderness (mild diffuse), Normal Bowel Sounds - Extremities Exam Extremities Exam: Normal Inspection. absent: Calf Tenderness - Neurological Exam Neurological Exam: Alert, Awake, Oriented x3 - Psychiatric Exam Psychiatric exam: Anxious Additional comments: Labile - Skin Skin Exam: Normal Color Assessment and Plan (1) Abdominal pain with vomiting Status: Acute (2) Gastroparesis Status: Acute (3) ESRD on hemodialysis Status: Chronic (4) Uncontrolled diabetes mellitus Status: Acute (5) Anemia in CKD (chronic kidney disease) Status: Chronic (6) Drug-seeking behavior Status: Acute (7) Noncompliance with medication regimen Status: Acute - Assessment and Plan (Free Text) Assessment: A/P: 28 y/o female admitted to [facility] for evaluation and treatment of Gastroparesis, Anxiety (Drug seeking behavior) and elevated blood sugar. Patient continues to have intermittent vomiting and fluctuating blood glucose. Patient continues to refuse blood test and some medications. Patient agreed to have abdominal US this morning, however it was not completed due to vomiting episode in US room. - Consult GI, recommendations appreciated -c/w reglan 5 mg IVP q8 hr -c/w Pantoprazole 40 mg po daily -c/w Pepcid 20 mg po bid - Consult Nephro Dr. Martines, recs appreciated -C/w HD as [facility] on MWF -c/w calctriol 0.25 mcg on MWF - Consult Endocrine, Cam: recommendations appreciated - c/w Levemir 14 Units HS - c/w Insulin lispro 6 units AC HS - Hypoglycemic protocol, AccuCheck ACHS - Consult psych, recommendations appreciated -C/w Rameron 15 mg PO hs -Consult pain management, f/u recs -Diabetic diet as tolerated -C/w home medications and rest of the plan as ordered -f/u abdominal US -f/u AM labs Patient seen, examined and plan discussed with Dr. Ifrah Moody, pgy-2 <Garret Rg - Last Filed: 04/08/18 20:32> Objective - Vital Signs/Intake and Output Vital Signs (last 24 hours): Temp Pulse Resp BP Pulse Ox 98.3 F 83 16 98/61 L 97 04/08/18 19:37 04/08/18 19:37 04/08/18 19:37 04/08/18 19:37 04/08/18 19:37 - Medications Medications: Current Medications Amlodipine Besylate (Norvasc) 5 mg PO DAILY [facility] Last Admin: 04/08/18 10:13 Dose: Not Given Calcitriol (Rocaltrol) 0.25 mcg PO MWF [facility] Last Admin: 04/07/18 09:21 Dose: 0.25 mcg Carvedilol (Coreg) 12.5 mg PO Q12 [facility] Last Admin: 04/08/18 10:12 Dose: Not Given Clonidine HCl (Catapres-Tts2 0.2 Mg/24 Hr) 1 patch TD Q7D@1000 [facility] Last Admin: 04/08/18 10:12 Dose: Not Given Dextrose (Dextrose 50% Inj) 0 ml IV STAT PRN; Protocol PRN Reason: Hypoglycemia Protocol Last Admin: 04/06/18 12:06 Dose: 50 ml Dextrose (Glutose 15) 0 gm PO ONCE PRN; Protocol PRN Reason: Hypoglycemia Protocol Dextrose (Dextrose 50% Inj) 0 ml IV STAT PRN; Protocol PRN Reason: Hypoglycemia Protocol Last Admin: 04/07/18 05:16 Dose: 50 ml Dextrose (Glutose 15) 0 gm PO ONCE PRN; Protocol PRN Reason: Hypoglycemia Protocol Ergocalciferol (Drisdol 50,000 Intl Units Cap) 1 cap PO Q7D [facility] Last Admin: 04/01/18 23:19 Dose: Not Given Famotidine (Pepcid) 20 mg PO BID [facility] Last Admin: 04/08/18 17:20 Dose: 20 mg Glucagon (Glucagen Diagnostic Kit) 0 mg IM STAT PRN; Protocol PRN Reason: Hypoglycemia Protocol Glucagon (Glucagen Diagnostic Kit) 0 mg IM STAT PRN; Protocol PRN Reason: Hypoglycemia Protocol Heparin Sodium (Porcine) (Heparin) 5,000 units SC Q8 [facility]; Protocol Last Admin: 04/08/18 17:19 Dose: Not Given Hydromorphone HCl (Dilaudid) 2 mg PO Q12 PRN PRN Reason: Pain, severe (8-10) Last Admin: 04/07/18 20:02 Dose: 2 mg Hydroxyzine Pamoate (Vistaril) 50 mg PO Q8 PRN PRN Reason: Anxiety Insulin Detemir (Levemir) 14 units SC [facility] Last Admin: 04/07/18 22:53 Dose: Not Given Insulin Human Lispro (Humalog) 0 units SC [facility] Last Admin: 04/08/18 17:23 Dose: 5 units Insulin Human Lispro (Humalog) 6 units SC [facility] Last Admin: 04/08/18 17:23 Dose: 6 unit Losartan Potassium (Cozaar) 25 mg PO DAILY [facility] Last Admin: 04/08/18 10:13 Dose: Not Given Metoclopramide HCl (Reglan) 5 mg PO [facility] Last Admin: 04/03/18 12:05 Dose: Not Given Metoclopramide HCl (Reglan) 5 mg IVP Q8 [facility] Last Admin: 04/08/18 17:20 Dose: 5 mg Mirtazapine (Remeron) 15 mg PO [facility] Last Admin: 04/07/18 22:54 Dose: Not Given Ondansetron HCl (Zofran Odt) 4 mg PO Q6 PRN PRN Reason: Nausea/Vomiting Last Admin: 04/03/18 09:26 Dose: 4 mg Ondansetron HCl (Zofran Inj) 4 mg IVP Q6 PRN PRN Reason: Nausea/Vomiting Last Admin: 04/07/18 05:44 Dose: 4 mg Pantoprazole Sodium (Protonix Ec Tab) 40 mg PO DAILY [facility] Last Admin: 04/08/18 10:14 Dose: Not Given Polyethylene Glycol (Miralax) 17 gm PO DAILY PRN PRN Reason: Constipation Torsemide (Demadex) 5 mg PO DAILY [facility] Last Admin: 04/08/18 10:13 Dose: Not Given - Labs Labs: 04/05/18 19:22 04/05/18 19:22 PT 10.7 Seconds (9.8-13.1) 04/01/18 16:56 INR 0.9 04/01/18 16:56 APTT 32.5 Seconds (25.6-37.1) 04/01/18 16:56 Assessment and Plan - Assessment and Plan (Free Text) Assessment: Patient was personally seen and examined by me in rounds with residents. Available labs and diagnostic data reviewed. Case, Patient's condition and management plan discussed with residents in rounds. Agree with resident's progress note. Plan: As ordered.
--- NOTE | 2018-04-08 18:58 | CP.PCM.CON ---
History of Present Illness - History of Present Illness History of Present Illness: pain consult requested for abdominal pain due to gastroparesis as per GI specialist. Past Patient History - Infectious Disease Hx of Infectious Diseases: None - Past Medical History & Family History Past Medical History?: Yes - Past Social History Smoking Status: Never Smoked - CARDIAC Hx Hypertension: Yes - PULMONARY Hx Bronchitis: Yes - NEUROLOGICAL Hx Seizures: Yes (Pseudo seizures?) - HEENT Hx HEENT Problems: Yes Hx Cataracts: Yes - RENAL Hx Chronic Kidney Disease: Yes - ENDOCRINE/METABOLIC Hx Endocrine Disorders: Yes Hx Diabetes Mellitus Type 2: Yes (on insulin pump) - HEMATOLOGICAL/ONCOLOGICAL Hx Anemia: Yes Hx Human Immunodeficiency Virus (HIV): No - INTEGUMENTARY Hx Dermatological Problems: No - MUSCULOSKELETAL/RHEUMATOLOGICAL Hx Musculoskeletal Disorders: Yes Hx Falls: Yes - GASTROINTESTINAL Hx Gastrointestinal Disorders: Yes (SEE COMMENT) Other/Comment: gastroparesis - GENITOURINARY/GYNECOLOGICAL Hx Genitourinary Disorders: No - PSYCHIATRIC Hx Anxiety: Yes Hx Depression: Yes - SURGICAL HISTORY Hx Appendectomy: Yes - ANESTHESIA Hx Anesthesia: Yes Hx Anesthesia Reactions: No Hx Malignant Hyperthermia: No Meds Allergies/Adverse Reactions: Allergies Allergy/AdvReac Type Severity Reaction Status Date / Time No Known Allergies Allergy Verified 03/31/18 19:06 - Medications Medications: Current Medications Amlodipine Besylate (Norvasc) 5 mg PO DAILY [facility] Last Admin: 04/08/18 10:13 Dose: Not Given Calcitriol (Rocaltrol) 0.25 mcg PO MWF [facility] Last Admin: 04/07/18 09:21 Dose: 0.25 mcg Carvedilol (Coreg) 12.5 mg PO Q12 [facility] Last Admin: 04/08/18 10:12 Dose: Not Given Clonidine HCl (Catapres-Tts2 0.2 Mg/24 Hr) 1 patch TD Q7D@1000 [facility] Last Admin: 04/08/18 10:12 Dose: Not Given Dextrose (Dextrose 50% Inj) 0 ml IV STAT PRN; Protocol PRN Reason: Hypoglycemia Protocol Last Admin: 04/06/18 12:06 Dose: 50 ml Dextrose (Glutose 15) 0 gm PO ONCE PRN; Protocol PRN Reason: Hypoglycemia Protocol Dextrose (Dextrose 50% Inj) 0 ml IV STAT PRN; Protocol PRN Reason: Hypoglycemia Protocol Last Admin: 04/07/18 05:16 Dose: 50 ml Dextrose (Glutose 15) 0 gm PO ONCE PRN; Protocol PRN Reason: Hypoglycemia Protocol Ergocalciferol (Drisdol 50,000 Intl Units Cap) 1 cap PO Q7D [facility] Last Admin: 04/01/18 23:19 Dose: Not Given Famotidine (Pepcid) 20 mg PO BID [facility] Last Admin: 04/08/18 17:20 Dose: 20 mg Glucagon (Glucagen Diagnostic Kit) 0 mg IM STAT PRN; Protocol PRN Reason: Hypoglycemia Protocol Glucagon (Glucagen Diagnostic Kit) 0 mg IM STAT PRN; Protocol PRN Reason: Hypoglycemia Protocol Heparin Sodium (Porcine) (Heparin) 5,000 units SC Q8 [facility]; Protocol Last Admin: 04/08/18 17:19 Dose: Not Given Hydromorphone HCl (Dilaudid) 2 mg PO Q12 PRN PRN Reason: Pain, severe (8-10) Last Admin: 04/07/18 20:02 Dose: 2 mg Hydroxyzine Pamoate (Vistaril) 50 mg PO Q8 PRN PRN Reason: Anxiety Insulin Detemir (Levemir) 14 units SC [facility] Last Admin: 04/07/18 22:53 Dose: Not Given Insulin Human Lispro (Humalog) 0 units SC [facility] Last Admin: 04/08/18 17:23 Dose: 5 units Insulin Human Lispro (Humalog) 6 units SC [facility] Last Admin: 04/08/18 17:23 Dose: 6 unit Losartan Potassium (Cozaar) 25 mg PO DAILY [facility] Last Admin: 04/08/18 10:13 Dose: Not Given Metoclopramide HCl (Reglan) 5 mg PO AC [facility] Last Admin: 04/03/18 12:05 Dose: Not Given Metoclopramide HCl (Reglan) 5 mg IVP Q8 [facility] Last Admin: 04/08/18 17:20 Dose: 5 mg Mirtazapine (Remeron) 15 mg PO [facility] Last Admin: 04/07/18 22:54 Dose: Not Given Ondansetron HCl (Zofran Odt) 4 mg PO Q6 PRN PRN Reason: Nausea/Vomiting Last Admin: 04/03/18 09:26 Dose: 4 mg Ondansetron HCl (Zofran Inj) 4 mg IVP Q6 PRN PRN Reason: Nausea/Vomiting Last Admin: 04/07/18 05:44 Dose: 4 mg Pantoprazole Sodium (Protonix Ec Tab) 40 mg PO DAILY [facility] Last Admin: 04/08/18 10:14 Dose: Not Given Polyethylene Glycol (Miralax) 17 gm PO DAILY PRN PRN Reason: Constipation Torsemide (Demadex) 5 mg PO DAILY [facility] Last Admin: 04/08/18 10:13 Dose: Not Given Results - Vital Signs Recent Vital Signs: Last Vital Signs Temp 98.5 F 04/08/18 16:23 Pulse 95 H 04/08/18 16:23 Resp 17 04/08/18 16:23 BP 152/98 H 04/08/18 16:23 Pulse Ox 96 04/08/18 16:23 - Labs Result Diagrams: 04/05/18 19:22 04/05/18 19:22 Labs: Laboratory Results - last 24 hr 04/07/18 04/07/18 04/08/18 19:35 20:56 05:30 POC Glucose (mg/dL) 461 H* 493 H* 187 H 04/08/18 04/08/18 04/08/18 11:05 14:34 16:04 POC Glucose (mg/dL) 205 H > 500 H* > 500 H* Assessment & Plan - Assessment and Plan (Free Text) Assessment: Abdominal pain secondary to gastroparesis Plan: Discussed cse with Dr. Fernandez SErvice has nothing to offer to relieve abdominal pain due to gastroparesis. Narcotics will worsen the gastroparesis. REcommend treating gastroparesis and behavior/psych problem.
--- NOTE | 2018-04-08 18:59 | PN ---
DATE: 04/08/2018 ENDOCRINOLOGY FOLLOWUP NOTE LOCATION: Room 413. SUBJECTIVE: This is a 28-year-old female with recent uncontrolled type 1 insulin-dependent diabetes presenting here with exacerbation of diabetic gastroparesis and continues to have variable oral intake as noted thereof. Her glycemic fluctuations have been noted once again overnight with glucose levels of 493 at bedtime but it was 83 yesterday morning as noted. Her glucose levels today have ranged from 187 to 205 mg/dL. Her chemistry showed a BUN of 24, sodium 129, potassium 4.7, chloride 95, CO2 19, glucose 444 and creatinine 4.4. ASSESSMENT: This is a 28-year-old female with uncontrolled and decompensated type 1 insulin-dependent diabetes with extremely poor adherence of compliance to her insulin regimen especially for outpatient diabetic management but also with inpatient poor adherence to the diet regimen as ordered with extremes of glycemic fluctuations as noted thereof. She also has diabetic microvascular complications of retinopathy, polyneuropathy and nephropathy with end-stage renal disease and dialysis dependence and she also has diabetic gastroparesis with multiple hospital readmissions for exacerbations of the same and now is chemically dependent on narcotic analgesics as noted. PLAN OF MANAGEMENT: We will continue the modified basal and bolus insulin regimen as ordered with Humalog given as 6 units t.i.d. before meals as given. We will continue the Levemir given as 14 units subcu at bedtime daily as ordered. We will obtain serial chemistries and supplement accordingly as needed. We will follow. Yamileth Charles MD
[2018-04-08] MEDS: Insulin Detemir 100 Units/ml Inj SC SCH (21:27)
[2018-04-08] MEDS: Ergocalciferol 50,000 Intl Units Cap PO SCH (22:47)
--- NOTE | 2018-04-09 08:27 | CP.PCM.PN ---
<Sultan Heidy - Last Filed: 04/09/18 10:12> Subjective - Date & Time of Evaluation Date of Evaluation: 04/09/18 Time of Evaluation: 08:10 - Subjective Subjective: Patient seen and examined with Dr. Rg Patient was sleeping comfortably before we entered the room. Again started to ask for IV pain medication. Patient was on npo overnight for abdominal US this morning but US was not done due to patient started vomiting and declined to have test performed. Continues to refuse labs workup and medications at times Pain management was consulted and recommends to avoid narcotics as it may worsens gastroparesis. Psych was re-consulted and patient declined to talk to psychiatrist. Objective - Vital Signs/Intake and Output Vital Signs (last 24 hours): Temp Pulse Resp BP Pulse Ox 98.4 F 86 18 167/108 H 96 04/09/18 08:06 04/09/18 08:06 04/09/18 08:06 04/09/18 08:06 04/09/18 08:06 - Medications Medications: Current Medications Amlodipine Besylate (Norvasc) 5 mg PO DAILY [facility] Last Admin: 04/08/18 10:13 Dose: Not Given Calcitriol (Rocaltrol) 0.25 mcg PO MWF [facility] Last Admin: 04/07/18 09:21 Dose: 0.25 mcg Carvedilol (Coreg) 12.5 mg PO Q12 [facility] Last Admin: 04/08/18 21:36 Dose: 12.5 mg Clonidine HCl (Catapres-Tts2 0.2 Mg/24 Hr) 1 patch TD Q7D@1000 [facility] Last Admin: 04/08/18 10:12 Dose: Not Given Dextrose (Dextrose 50% Inj) 0 ml IV STAT PRN; Protocol PRN Reason: Hypoglycemia Protocol Last Admin: 04/06/18 12:06 Dose: 50 ml Dextrose (Glutose 15) 0 gm PO ONCE PRN; Protocol PRN Reason: Hypoglycemia Protocol Dextrose (Dextrose 50% Inj) 0 ml IV STAT PRN; Protocol PRN Reason: Hypoglycemia Protocol Last Admin: 04/07/18 05:16 Dose: 50 ml Dextrose (Glutose 15) 0 gm PO ONCE PRN; Protocol PRN Reason: Hypoglycemia Protocol Epoetin Hernando (Procrit) 10,000 unit IV MWF [facility] Ergocalciferol (Drisdol 50,000 Intl Units Cap) 1 cap PO Q7D [facility] Last Admin: 04/08/18 22:47 Dose: 1 cap Famotidine (Pepcid) 20 mg PO BID [facility] Last Admin: 04/08/18 17:20 Dose: 20 mg Glucagon (Glucagen Diagnostic Kit) 0 mg IM STAT PRN; Protocol PRN Reason: Hypoglycemia Protocol Glucagon (Glucagen Diagnostic Kit) 0 mg IM STAT PRN; Protocol PRN Reason: Hypoglycemia Protocol Heparin Sodium (Porcine) (Heparin) 5,000 units SC Q8 [facility]; Protocol Last Admin: 04/09/18 00:27 Dose: Not Given Hydromorphone HCl (Dilaudid) 2 mg PO Q12 PRN PRN Reason: Pain, severe (8-10) Last Admin: 04/07/18 20:02 Dose: 2 mg Hydroxyzine Pamoate (Vistaril) 50 mg PO Q8 PRN PRN Reason: Anxiety Insulin Detemir (Levemir) [address] [facility] Last Admin: 04/08/18 21:27 Dose: 14 units Insulin Human Lispro (Humalog) 0 units SC [facility] Last Admin: 04/08/18 21:30 Dose: Not Given Insulin Human Lispro (Humalog) 6 units SC [facility] Last Admin: 04/08/18 17:23 Dose: 6 unit Losartan Potassium (Cozaar) 25 mg PO DAILY [facility] Last Admin: 04/08/18 10:13 Dose: Not Given Metoclopramide HCl (Reglan) 5 mg PO AC [facility] Last Admin: 04/03/18 12:05 Dose: Not Given Metoclopramide HCl (Reglan) 5 mg IVP Q8 [facility] Last Admin: 04/09/18 00:28 Dose: 5 mg Mirtazapine (Remeron) [address] [facility] Last Admin: 04/08/18 21:32 Dose: 15 mg Ondansetron HCl (Zofran Odt) 4 mg PO Q6 PRN PRN Reason: Nausea/Vomiting Last Admin: 04/03/18 09:26 Dose: 4 mg Ondansetron HCl (Zofran Inj) 4 mg IVP Q6 PRN PRN Reason: Nausea/Vomiting Last Admin: 04/07/18 05:44 Dose: 4 mg Pantoprazole Sodium (Protonix Ec Tab) 40 mg PO DAILY [facility] Last Admin: 04/08/18 10:14 Dose: Not Given Polyethylene Glycol (Miralax) 17 gm PO DAILY PRN PRN Reason: Constipation Torsemide (Demadex) 5 mg PO DAILY [facility] Last Admin: 04/08/18 10:13 Dose: Not Given - Labs Labs: 04/05/18 19:22 04/05/18 19:22 PT 10.7 Seconds (9.8-13.1) 04/01/18 16:56 INR 0.9 04/01/18 16:56 APTT 32.5 Seconds (25.6-37.1) 04/01/18 16:56 - Constitutional Appears: No Acute Distress - Head Exam Head Exam: NORMAL INSPECTION - ENT Exam ENT Exam: Mucous Membranes Moist - Neck Exam Neck Exam: Normal Inspection - Respiratory Exam Respiratory Exam: Clear to Ausculation Bilateral, NORMAL BREATHING PATTERN. absent: Rhonchi, Wheezes - Cardiovascular Exam Cardiovascular Exam: REGULAR RHYTHM, +S1, +S2 - GI/Abdominal Exam GI & Abdominal Exam: Soft, Tenderness (mild diffuse), Normal Bowel Sounds - Extremities Exam Extremities Exam: Normal Inspection. absent: Calf Tenderness - Neurological Exam Neurological Exam: Alert, Awake, Oriented x3 - Psychiatric Exam Psychiatric exam: Anxious Additional comments: Labile - Skin Skin Exam: Normal Color Assessment and Plan (1) Abdominal pain with vomiting Status: Acute (2) Gastroparesis Status: Acute (3) ESRD on hemodialysis Status: Chronic (4) Uncontrolled diabetes mellitus Status: Acute (5) Anemia in CKD (chronic kidney disease) Status: Chronic (6) Drug-seeking behavior Status: Acute (7) Noncompliance with medication regimen Status: Acute - Assessment and Plan (Free Text) Assessment: A/P: 28 y/o female admitted to [facility] for evaluation and treatment of Gastroparesis, Anxiety (Drug seeking behavior) and elevated blood sugar. Patient continues to have intermittent vomiting and fluctuating blood glucose. Patient continues to refuse blood test and some medications. - Consult GI, recommendations appreciated -c/w reglan 5 mg IVP q8 hr -c/w Pantoprazole 40 mg po daily -c/w Pepcid 20 mg po bid -Patient won't qualify for gastric pacemaker due to stringent criteria - Consult Nephro Dr. Martines, recs appreciated -C/w HD as RAISA on MWF -c/w calctriol 0.25 mcg on MWF -HD today - Consult Endocrine, Cam: recommendations appreciated - c/w Levemir 14 Units HS - c/w Insulin lispro 6 units AC HS - Hypoglycemic protocol, AccuCheck ACHS - Consult psych, recommendations appreciated -C/w Rameron 15 mg PO hs -Consult pain management, Dr. Wheat, recs appreciated -Narcotics will worsen the gastroparesis. -Recommend treating gastroparesis and behavior/psych problem. -Diabetic diet as tolerated -C/w home medications and rest of the plan as ordered -f/u abdominal US -f/u AM labs Patient seen, examined and plan discussed with Dr. Ifrah Moody, [id number] <Garret Rg - Last Filed: 04/13/18 12:18> Objective - Vital Signs/Intake and Output Vital Signs (last 24 hours): Temp Pulse Resp BP Pulse Ox 98.0 F 90 17 106/69 100 04/09/18 20:02 04/09/18 20:53 04/09/18 20:02 04/09/18 20:53 04/09/18 20:02 - Labs Labs: 04/09/18 16:16 04/09/18 16:16 PT 10.7 Seconds (9.8-13.1) 04/01/18 16:56 INR 0.9 04/01/18 16:56 APTT 32.5 Seconds (25.6-37.1) 04/01/18 16:56 Assessment and Plan - Assessment and Plan (Free Text) Assessment: Patient was personally seen and examined by me in rounds with residents. Available labs and diagnostic data reviewed. Case, Patient's condition and management plan discussed with residents in [facility]. Agree with resident's progress note. Plan: As ordered.
[2018-04-09] MEDS ORDERED: EPOETIN ALFA 10,000 UNIT/ML ML IV SCH (09:00)
--- NOTE | 2018-04-09 10:32 | PN ---
DATE: 04/09/2018 LOCATION: Room 413. This is a 28-year-old female with recent uncontrolled type 1 insulin-dependent diabetes, presenting here with acute exacerbation of diabetic gastroparesis and is now being followed closely for metabolic management. Her glycemic levels are fluctuating with the variability of her oral intake and the glucose levels overnight have ranged from 219 to 244 mg/dL. So, at this time, because of the aforementioned extremes of glycemic fluctuations and the variability of her oral intake, we will continue the same basal and bolus insulin regimen as ordered. We will continue the Humalog given as 6 units t.i.d. before meals as given. We will continue the basal insulin given as Levemir at 14 units subcu at bedtime daily as given. We will titrate incremental as indicated to optimize metabolic control. We will follow and advise accordingly. Yamileth Charles MD
[2018-04-09] MEDS: Insulin Lispro (humaLOG) 100 Units/ml Inj SC SCH ×5 (10:59→17:02)
[2018-04-09] MEDS: Pantoprazole 40 mg EC Tab PO SCH (11:00)
--- NOTE | 2018-04-09 14:17 | CP.PCM.PCO ---
Assessment/Plan - Assessment and Plan (Free Text) Assessment: Patient seen and examined this morning Awake alert oriented, denies abdominal pain at this time. With some nausea this morning, medicated with zofran. Vitals reviewed, bp within normal parameters. BS 87, Will advance diet for lunch and see if she tolerates. Plan has been discussed with the SW and sister Laine who is involved in patient's care. Patient will be given [facility] partial day program details for discharge if patient agrees to attend. Patient refused to see Dr Chou this morning from Psychiatry. Encouraged to see her own mental health provider to continue treatment for her adjustment disorder, anxiety due to her multiple medical problems. Patient will get HD today and will be discharged to home. Discussed with Dr Rg who agrees.
[2018-04-09 15:55] VITALS: RESP 17
[2018-04-09 16:19] LABS: BASO # 0.1 K/uL (0.0-0.2); EOS # 0.2 K/uL (0.0-0.7); EOS % 2.5 % (0.0-4.0); HEMOGLOBIN 8.8 g/dL (12.0-16.0); LYMPH % 29.7 % (20.0-40.0); MEAN CELL VOLUME 86.8 fl (81.0-99.0); MEAN CORPUSCULAR HEMOGLOBIN 27.9 pg (27.0-31.0); MEAN CORPUSCULAR HGB CONC 32.1 g/dL (33.0-37.0); MEAN PLATELET VOLUME 10.2 fl (7.2-11.7); MONO # 0.5 K/uL (0.0-0.8); MONO % 6.9 % (0.0-10.0); NEUT % 59.9 % (50.0-75.0); RBC 3.16 Mil/uL (3.80-5.20); RED CELL DISTRIBUTION WIDTH 15.1 % (11.5-14.5); WHITE BLOOD COUNT 6.7 K/uL (4.8-10.8)
[2018-04-09 16:50] LABS: ALB/GLOB RATIO 1.2 (1.0-2.1); ALBUMIN 3.2 g/dL (3.5-5.0); CALCIUM 8.6 mg/dL (8.4-10.2)
[2018-04-09 20:02] VITALS: TEMP 98; O2SAT 100
[2018-04-09 20:53] VITALS: BP 106/69; PULSE 90
--- NOTE | 2018-04-09 22:43 | CP.PCM.PN ---
Subjective - Date & Time of Evaluation Date of Evaluation: 04/09/18 Time of Evaluation: 16:00 - Subjective Subjective: 28 yo F w/ pmh of htn, dm w/ gastroparesis, nephrotic syndrome and ESRD on HD, admitted with gastroparesis flare; Reports vomiting this morning but able to tolerate lunch; ambulating, no sob; urinating about once a day; Objective - Vital Signs/Intake and Output Vital Signs (last 24 hours): Temp Pulse Resp BP Pulse Ox 98.0 F 90 17 106/69 100 04/09/18 20:02 04/09/18 20:53 04/09/18 20:02 04/09/18 20:53 04/09/18 20:02 - Labs Labs: 04/09/18 16:16 04/09/18 16:16 PT 10.7 Seconds (9.8-13.1) 04/01/18 16:56 INR 0.9 04/01/18 16:56 APTT 32.5 Seconds (25.6-37.1) 04/01/18 16:56 - Constitutional Appears: Non-toxic, No Acute Distress - Eye Exam Eye Exam: Normal appearance - Respiratory Exam Respiratory Exam: Clear to Ausculation Bilateral. absent: Respiratory Distress - Cardiovascular Exam Cardiovascular Exam: RRR, +S1, +S2 - GI/Abdominal Exam GI & Abdominal Exam: Soft. absent: Distended - Extremities Exam Additional comments: no leg edema; - Neurological Exam Neurological Exam: Alert, Awake - Psychiatric Exam Psychiatric exam: Normal Mood. absent: Agitated - Skin Skin Exam: Warm. absent: Cyanosis - Additional Findings Additional findings: L arm AVF w/ good bruit, still deep; Assessment and Plan (1) ESRD on hemodialysis Assessment & Plan: Relatively stable electroyte and volume status; dialyzing today per routine with 1L UF goal; Status: Chronic (2) Hypertensive CKD, ESRD on dialysis Assessment & Plan: BP fluctuating; will continue on current regimen (decreasing coreg to 6.25 mg bid); Status: Acute (3) Anemia in CKD (chronic kidney disease) Assessment & Plan: Hgb below goal, dosing EPO on HD; Status: Chronic (4) Chronic kidney disease-mineral and bone disorder Assessment & Plan: Phos controlled, will keep off binders for now; continue calcitriol; Status: Chronic (5) Diabetic gastroparesis Assessment & Plan: Discussed with patient; will restart insulin pump once home; needs close GI and endocrine f/u; also discussed need to avoid narcotic agents; Status: Chronic
== END 2018-04-09 21:00 | disposition home or self-care (01) | DRG 18 ==
LOC: H.ER 15:59 → H.ERHOLD 18:11 → H.TEL 22:04
PROVIDERS: ADMIT Internal Medicine; ATTEND Internal Medicine
PROC: 5A1D70Z Performance of Urinary Filtration, Intermittent, Less than 6 Hours Per Day (ICD-10-PCS; principal; 2018-04-02)
PROC: 5A1D70Z Performance of Urinary Filtration, Intermittent, Less than 6 Hours Per Day (ICD-10-PCS; 2018-04-05)
PROC: 5A1D70Z Performance of Urinary Filtration, Intermittent, Less than 6 Hours Per Day (ICD-10-PCS; 2018-04-09)
DX: E10.43 Type 1 diabetes mellitus with diabetic autonomic (poly)neuropathy (principal); N18.6 End stage renal disease; I12.0 Hypertensive chronic kidney disease with stage 5 chronic kidney disease or end stage renal disease; E10.21 Type 1 diabetes mellitus with diabetic nephropathy; E10.319 Type 1 diabetes mellitus with unspecified diabetic retinopathy without macular edema; E87.1 Hypo-osmolality and hyponatremia; E10.65 Type 1 diabetes mellitus with hyperglycemia; K31.84 Gastroparesis; F43.23 Adjustment disorder with mixed anxiety and depressed mood; E10.22 Type 1 diabetes mellitus with diabetic chronic kidney disease; D63.1 Anemia in chronic kidney disease; E10.42 Type 1 diabetes mellitus with diabetic polyneuropathy; E10.649 Type 1 diabetes mellitus with hypoglycemia without coma; Z91.14 Patient's other noncompliance with medication regimen; K29.00 Acute gastritis without bleeding; Z96.41 Presence of insulin pump (external) (internal); Z99.2 Dependence on renal dialysis; Z79.4 Long term (current) use of insulin; E78.5 Hyperlipidemia, unspecified; Z76.5 Malingerer [conscious simulation]